=== PATIENT | male | born 1950 | race Caucasian/White ===

== ENCOUNTER 2019-03-28 11:45 | Outpatient (CLI) | payer MEDICARE, OTHER, SELFPAY ==
[2019-03-28 12:26] LABS: Eosinophils # 0.1 10^3/uL (0.0-0.8); Eosinophils % 0.1 %; Hematocrit 43.8 % (42.0-52.0); Hemoglobin 12.8 g/dL (11.7-16.6); Mean Corpuscular HGB Conc 29.2 g/dL (30.0-36.0); Mean Corpuscular Hemoglobin 30.9 pg (28.0-34.0); Mean Corpuscular Volume 105.8 fL (80-94); Monocytes % 1.5 %; Neutrophils # 2.7 10^3/uL (1.8-7.7); Neutrophils % 1.3 %; Nucleated Red Blood Cells % 0 %; Platelet Count 154 10^3/cmm (130-400); Red Blood Count 4.14 10^6/uL (4.1-5.3); Red Cell Distribution Width 15.9 % (12.1-15.1)
[2019-03-28 12:37] LABS: Alanine Aminotransferase 16 U/L (0-41); Albumin Level 5.2 g/dL (3.5-5.2); Alkaline Phosphatase 102 IU/L (40-130); Anion Gap 16.2 (5-19); Aspartate Amino Transferase 18 U/L (0-40); Blood Urea Nitrogen 16 mg/dL (8-23); Calcium 10.5 mg/Dl (8.8-10.2); Carbon Dioxide 28 mmol/L (22-29); Chloride 103 mmol/L (98-107); Globulin 2.6 g/dL (1.3-4.6); Glomerular Filtration Rate 66.6 mL/min (90-130); Glucose 118 mg/dL (74-106); Lactate Dehydrogenase 200 U/L (135-225); Potassium 4.2 mmol/L (3.5-5.1); Sodium 143 mmol/L (136-145); Total Bilirubin 0.6 mg/dL (0.15-1.2); Total Protein 7.8 g/dL (6.6-8.7)
[2019-03-28 13:37] LABS: Lymphocytes # 193.4 10^3/uL (0.8-4.8)
[2019-03-28 13:38] LABS: Slide Review Slide Review Perform
[2019-03-28 13:39] LABS: White Blood Count 199.4 10^3/uL (4.0-10.0)
--- NOTE | 2019-03-28 16:28 | ONC FU_ITS ---
Dr. Plaza follow up note Patient: Lb Garcia Unit #: [id number]: [id number] Dicatated By: Rosanne Plaza M.D.Date of Visit:Mar 28, 2019 Onc Med Follow-up/Prog Note History of Present Illness: Mr. Lb Garcia, 68-year-old male with a history of low-grade fever since February 2016 , now with night sweats and recently diagnosed with pneumonia , on 10/06/2016 his CBC showed white blood count 32.1 k , hemoglobin 14.4 hematocrit 45 platelets 170,000 differential shows lymphocytes 83.2% neutrophil 13.7% absolute lymphocytes count was 26,700 His repeat CBC on 10/28/2016 showed white blood count 33,700 hemoglobin 14.1 crit 41.9 platelets 193k, differential shows lymphocytes 78.5% neutrophil 18% absolute lymphocyte count 26,400 CBC from 03/17/2016 showed white blood count 12.5 hemoglobin 15.8 hematocrit 47.7 platelets 193,000 differential showed lymphocytes 58.2% neutrophil 37.6% absolute lymphocyte count was 7300 Patient said he has sleep apnea for which he uses CPAP machine at recently he would feel congested in his sinuses and also had urine tract infection off and on CT scan of chest abdomen pelvis done on 04/25/[address] scan of chest abdomen pelvis done on 11/25/2016 showed very mild progression in size and number of axillary, mediastinal, hilar and pelvic adenopathy Mild increase in size of spleen now 14.8 cm compared to 13.4 cm on 11/25/2016 .CT scan of chest abdomen pelvis done on 01/05/2019 showed stable bilateral axillary, mediastinal, right hilar lymphadenopathy no progression Splenomegaly, marginally increased from 04/25/2018 Progressive pelvic lymphadenopathy e.g. lymph node increase from 1.1-1.5 cm or 1.3 to 1.7 cm in left external iliac. And left internal iliac measures 1.8 compared to 1.4 cm earlier.Enlarged prostate Came for follow-up, denies any specific complaints, no night sweats, no fever or chills, but some weight loss because of poor oral intake since his in January 2019. No abdominal fullness no shortness of breath no palpitation occasionally headaches. . Medications: AmLODIPine Besylate 1 Tablet (of 10 mg) Oral daily, Aspirin 1 Tablet (of 81 mg) Tablet, enteric coated Oral daily, Finasteride 1 Tablet (of 5 mg) Oral daily, Lisinopril 1 Tablet (of 20 mg) Oral daily, Lovastatin ER 1 Tablet (of 40 mg) Tablet SR 24 HR Oral daily Allergies: No Known Allergies. Review of Systems: Review of Systems is not available for this patient. Vital Signs: Performed on Mar 28, 2019 14:36 Height - 69.50 in Weight - 218.0 lbs (LOW) BSA - 2.15 sq.m BMI - 31.73 (HIGH) Temperature - 98.1 F (LOW) Pulse - 85 /min Respiration - 24 /min BP - 119/68 mm(hg) O2 Sat - 96 % Pain - 0 Performance Status: 1 - No physically strenuous activity, but ambulatory and able to carry out light or sedentary work (e.g. office work, light house work). (ECOG) Physical Examination: ENMT - No oral exudates, ulcers, masses, thrush or mucositis. Oropharynx clear. Tongue normal, Respiratory - Lungs are clear to auscultation without rhonchi or wheezing, Cardiovascular - Regular rate and rhythm of heart, Abdomen - Non-tender, non-distended, Good bowel sounds. No guarding or rebound tenderness. No pulsatile masses, Extremities - no edema. Lab/Imaging: Test performed on Jan 05, 2019 08:22 LDH (Total) 200 U/L Sodium 142 mmol/L Potassium 4.4 mmol/L Chloride 103 mmol/L CO2 26 mmol/L Anion Gap 17.4 BUN 16 mg/dL Creatinine 1.0 mg/dL Cr Clearance (Est) 100.2500 mL/min eGFR 74.3 mL/min Glucose 128 mg/dl Calcium 9.7 mg/dL Protein, Total 7.9 g/dL Albumin 5.0 g/dL Globulin 2.9 gm/dL Bilirubin, Total 0.6 mg/dL ALT (SGPT) 18 U/L AST (SGOT) 17 U/L Alkaline Phosphatase 92 U/L WBC 185.8 10 3/uL RBC 3.96 10 6/uL HGB 12.8 g/dl HCT 39.4 % MCV 99.4 fl MCH 32.2 pg MCHC 32.4 g/dl RDW 15.7 % Platelet Count 146 10 3/cmm MPV 8.9 fl Neutrophils 3.2 10 3/uL Lymphocytes 179.0 10 3/uL Monocytes 3.4 10 3/uL Eosinophils 0.0 10 3/uL Basophils 0.1 10 3/uL Neutrophil % 1.7 % Lymphocyte % 96.5 % Monocyte % 1.8 % Eosinophil % 0.0 % Basophils % 0.0 % CBC Slide Review SLIDE REVIEW PERFORM SLIDE REVIEW AGREES WITH AUTOMATED RESULTS ST Test performed on Nov 10, 2018 11:32 Hepatitis A Ab, IgM Non- Reactive Hepatitis B Core Ab, Total Non-Reactive Hepatitis B Surf Antigen Non-Reactive Hepatitis B Surface Ab < 3.5 STATUS of IMMUINITY Inconsistent with Immunity 0.0 - 8.5 mIU/mL Consistent with Immunity >8.5 mIU/mL Hepatitis C Ab Non-Reactive Test performed on Nov 10, 2018 08:55 Manual Segs % 2 % Manual Bands % 1.0 % Manual Lymphs % 96.0 % Blasts % 1.0 % Platelet Estimate NORMAL Manual Neutrophils Abs 5.1 10 3/cmm Manual Lymphocytes Abs 163.1 10 3/cmm Impression: 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 Discussed with patient regarding his CT scan finding and lab workup. His white blood count is elevated due to lymphocytosis at 48.7 with a normal hemoglobin and hematocrit as well as platelets No evidence of peripheral lymphadenopathy or central lymphadenopathy except mild lymphadenopathy in pelvis maximum size 1.3 cm. [address] compared with [address] scan of pelvis on 06/07/2009 it was 0.8 cm. Incidental finding, large thyroid goiter causing impingement on trachea and esophagus at the cervicothoracic junction the vast majority of monotypic B cells express CD38 next CLL panel, FISH showed positive for deletion of TP53 (unfavorable prognosis and chemotherapy resistance) And IGHV status shows non-mutation e.g. poor prognostic features Quantitative immunoglobulins checked on 11/04/2016 showed IgG 1100 normal being 700-1600 IgM 53 normal being 40-230 IgA 150 normal being 70-400 Beta-2 microglobulin 0.230 normal being 0.109 -0.253 CT scan of chest abdomen pelvis done on 11/25/2016 showed bilateral lower lobe parenchymal scarring with bilateral lower lobe bronchiectasis segment similar to 06/07/2009. Thyroid goiter with tracheal and esophageal impingements at cervicothoracic junction. Nonspecific right hilar lymph nodes no enlarged or pathological lymphadenopathy seen. Mild iliac region lymph nodes enlargements since 06/07/2009 Size about 1.3 cm. mild splenomegaly Repeat sonogram of abdomen On 12/20/2017 shows mild splenomegaly now 12.9 cm compared to 13.2 cm on 03/02/2017 On 02/09/2018 patient was evaluated by Dr. 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 And his recommendations were serial CT scan of chest abdomen pelvis once a year or sooner if needed. And continue to monitor CBC unless white blood count more than 200,000 as it may be associated with hyperviscosity and treatment options if decided to treat his recommendation was short course of bendamustine/Rituxan up to 4 cycles to achieve an initial response followed by ibrutinib maintenance. CT scan of chest abdomen pelvis done on 04/25/2018 showed very mild progression in the size and number of axillary, just tunnel, hilar and pelvic lymphadenopathy since 11/25/2016 Mild increase in size of spleen since 11/25/2016, now 14.8 cm compared to 13.4 before. Severe prostrate gland enlargement Plan: Discussed with patient regarding his labs white blood count 199.4, hemoglobin 12.8 crit 43.8 platelets 154,000 CMP within normal limits LDH 200 Clinically, patient is doing well, no B signs symptoms suggestive of disease progression but there is a progressive lymphocytosis/leukocytosis with a normal hemoglobin and platelet count and stable peripheral lymphadenopathy. Patient is having occasionally headaches and has lost some weight since his in January 2019 and at this point we'll continue to monitor and have him back in one month with CBC if white blood count/lymphocytes continued to go up and or there is a worsening of headaches may consider systemic therapy for CLL. Signed By: Rosanne Plaza M.D. <<Signature on File>>
== END 2019-03-28 11:46 | disposition home or self-care (01) ==
LOC: ONCMED 11:45
PROVIDERS: Family Provider Nurse Practitioner; PCP Nurse Practitioner; Visit Provider Internal Medicine Hematology & Oncology
DX: C91.10 Chronic lymphocytic leukemia of B-cell type not having achieved remission (principal); G47.33 Obstructive sleep apnea (adult) (pediatric); R16.1 Splenomegaly, not elsewhere classified; N40.0 Benign prostatic hyperplasia without lower urinary tract symptoms; R59.0 Localized enlarged lymph nodes; E04.9 Nontoxic goiter, unspecified; Z79.82 Long term (current) use of aspirin; Z92.21 Personal history of antineoplastic chemotherapy; Z87.440 Personal history of urinary (tract) infections
CPT/HCPCS: 80053; 83615; 85025; G0463

== ENCOUNTER 2019-04-25 10:45 | Outpatient (CLI) | payer MEDICARE, OTHER, SELFPAY ==
[2019-04-25 11:19] LABS: Basophils # 0.1 10^3/uL (0.0-0.1); Eosinophils # 0.1 10^3/uL (0.0-0.8); Hematocrit 40.1 % (42.0-52.0); Hemoglobin 11.6 g/dL (11.7-16.6); Mean Corpuscular HGB Conc 28.9 g/dL (30.0-36.0); Mean Corpuscular Volume 107.2 fL (80-94); Mean Platelet Volume 10.4 fL (7.4-10.4); Monocytes # 3.7 10^3/uL (0.2-0.9); Monocytes % 1.9 %; Neutrophils # 3.7 10^3/uL (1.8-7.7); Nucleated Red Blood Cells % 0 %; Platelet Count 160 10^3/cmm (130-400); Red Blood Count 3.74 10^6/uL (4.1-5.3); Red Cell Distribution Width 15.5 % (12.1-15.1)
[2019-04-25 11:39] LABS: Alanine Aminotransferase 12 U/L (0-41); Albumin Level 4.2 g/dL (3.5-5.2); Alkaline Phosphatase 96 IU/L (40-130); Anion Gap 16.1 (5-19); Aspartate Amino Transferase 13 U/L (0-40); Blood Urea Nitrogen 14 mg/dL (8-23); Carbon Dioxide 27 mmol/L (22-29); Chloride 103 mmol/L (98-107); Globulin 3.4 g/dL (1.3-4.6); Glomerular Filtration Rate 60.2 mL/min (90-130); Glucose 136 mg/dL (65-115); Potassium 4.1 mmol/L (3.5-5.1); Sodium 142 mmol/L (136-145); Total Bilirubin 0.6 mg/dL (0.15-1.2); Total Protein 7.6 g/dL (6.6-8.7)
[2019-04-25 11:51] LABS: Lymphocytes # 186.5 10^3/uL (0.8-4.8); Slide Review Slide Review Perform; White Blood Count 194.3 10^3/uL (4.0-10.0)
--- NOTE | 2019-04-25 13:53 | ONC FU_ITS ---
Dr. Plaza follow up note Patient: Lb Garcia Unit #: [id number]: [id number] Dicatated By: Rosanne Plaza M.D.Date of Visit:Apr 25, 2019 Onc Med Follow-up/Prog Note History of Present Illness: Mr. Lb Garcia, 68-year-old male with a history of low-grade fever since February 2016 , now with night sweats and recently diagnosed with pneumonia , on 10/06/2016 his CBC showed white blood count 32.1 k , hemoglobin 14.4 hematocrit 45 platelets 170,000 differential shows lymphocytes 83.2% neutrophil 13.7% absolute lymphocytes count was 26,700 His repeat CBC on 10/28/2016 showed white blood count 33,700 hemoglobin 14.1 crit 41.9 platelets 193k, differential shows lymphocytes 78.5% neutrophil 18% absolute lymphocyte count 26,400 CBC from 03/17/2016 showed white blood count 12.5 hemoglobin 15.8 hematocrit 47.7 platelets 193,000 differential showed lymphocytes 58.2% neutrophil 37.6% absolute lymphocyte count was 7300 Patient said he has sleep apnea for which he uses CPAP machine at recently he would feel congested in his sinuses and also had urine tract infection off and on CT scan of chest abdomen pelvis done on 04/25/[address] scan of chest abdomen pelvis done on 11/25/2016 showed very mild progression in size and number of axillary, mediastinal, hilar and pelvic adenopathy Mild increase in size of spleen now 14.8 cm compared to 13.4 cm on 11/25/2016 .CT scan of chest abdomen pelvis done on 01/05/2019 showed stable bilateral axillary, mediastinal, right hilar lymphadenopathy no progression Splenomegaly, marginally increased from 04/25/2018 Progressive pelvic lymphadenopathy e.g. lymph node increase from 1.1-1.5 cm or 1.3 to 1.7 cm in left external iliac. And left internal iliac measures 1.8 compared to 1.4 cm earlier.Enlarged prostate Came for follow-up, denies any specific complaints except episode of flulike symptoms since last visit now resolved, no night sweats, no fever or chills, no weight loss, no progressive peripheral lymphadenopathy, no abdominal fullness, no melena or hematochezia, no nausea or vomiting, no dysphagia. . Medications: AmLODIPine Besylate 1 Tablet (of 10 mg) Oral daily, Aspirin 1 Tablet (of 81 mg) Tablet, enteric coated Oral daily, Finasteride 1 Tablet (of 5 mg) Oral daily, Lisinopril 1 Tablet (of 20 mg) Oral daily, Lovastatin ER 1 Tablet (of 40 mg) Tablet SR 24 HR Oral daily Allergies: No Known Allergies. Review of Systems: Constitutional - Appetite is good and weight is stable. No fever, chills, hot flashes, or night sweats. Energy level is fair, ENMT - No sinus congestion/drainage. No mouth sores. No sore throat or difficulty swallowing, Hematologic/Lymphatic - No abnormal bruising or bleeding, Respiratory - No shortness of breath. No cough. No pleuritic pain or hemoptysis, Cardiovascular - No angina pain. No palpitations, Gastrointestinal - No nausea or vomiting. No heartburn or acid reflux. No diarrhea or constipation. No blood in the stool or black stools, Genitourinary (M) - No dysuria. Positive for hematuria. No urinary frequency. No urgency or incontinence, Musculoskeletal - No joint or bone pain, Neurologic - No headache or dizziness. No numbness/paresthesias or other focal neurologic symptoms, Psychiatric - No anxiety or depression. No insomnia. Vital Signs: Performed on Apr 25, 2019 13:03 Height - 69.50 in Weight - 221.4 lbs (HIGH) BSA - 2.17 sq.m BMI - 32.23 (HIGH) Temperature - 98.5 F Pulse - 69 /min Respiration - 14 /min BP - 131/81 mm(hg) O2 Sat - 96 % Pain - 0 Performance Status: 0 - Fully active, able to carry on all predisease activities without restrictions. (ECOG) Physical Examination: ENMT - No oral exudates, ulcers, masses, thrush or mucositis. Oropharynx clear. Tongue normal.small shotty cervical lymphadenopathy and bilateral axillary lymphadenopathy, Respiratory - Lungs are clear to auscultation without rhonchi or wheezing, Cardiovascular - Regular rate and rhythm of heart, Abdomen - Non-tender, non-distended, Good bowel sounds. No guarding or rebound tenderness. No pulsatile masses, Extremities - no edema. Lab/Imaging: Test performed on Mar 28, 2019 12:00 LDH (Total) 200 U/L Sodium 143 mmol/L Potassium 4.2 mmol/L Chloride 103 mmol/L CO2 28 mmol/L Anion Gap 16.2 BUN 16 mg/dL Creatinine 1.1 mg/dL Cr Clearance (Est) 89.90 mL/min eGFR 66.6 mL/min Glucose 118 mg/dL Calcium 10.5 mg/Dl Protein, Total 7.8 g/dL Albumin 5.2 g/dL Globulin 2.6 g/dL Bilirubin, Total 0.6 mg/dL ALT (SGPT) 16 U/L AST (SGOT) 18 U/L WBC 199.4 10 3/uL RBC 4.14 10 6/uL HGB 12.8 g/dL HCT 43.8 % MCV 105.8 fL MCH 30.9 pg MCHC 29.2 g/dL RDW 15.9 % Platelet Count 154 10 3/cmm MPV 10.0 fL Neutrophils 2.7 10 3/uL Lymphocytes 193.4 10 3/uL Monocytes 3.0 10 3/uL Eosinophils 0.1 10 3/uL Basophils 0.0 10 3/uL Neutrophil % 1.3 % Lymphocyte % 97.0 % Monocyte % 1.5 % Eosinophil % 0.1 % Basophils % 0.0 % CBC Slide Review Slide Review Perform SLIDE REVIEW AGREES WITH AUTOMATED RESULTS ST Test performed on Jan 05, 2019 08:22 Alkaline Phosphatase 92 U/L Test performed on Nov 10, 2018 11:32 Hepatitis A Ab, IgM Non- Reactive Hepatitis B Core Ab, Total Non-Reactive Hepatitis B Surf Antigen Non-Reactive Hepatitis B Surface Ab < 3.5 STATUS of IMMUINITY Inconsistent with Immunity 0.0 - 8.5 mIU/mL Consistent with Immunity >8.5 mIU/mL Hepatitis C Ab Non-Reactive Test performed on Nov 10, 2018 08:55 Manual Segs % 2 % Manual Bands % 1.0 % Manual Lymphs % 96.0 % Blasts % 1.0 % Platelet Estimate NORMAL Manual Neutrophils Abs 5.1 10 3/cmm Manual Lymphocytes Abs 163.1 10 3/cmm Impression: 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 Discussed with patient regarding his CT scan finding and lab workup. His white blood count is elevated due to lymphocytosis at 48.7 with a normal hemoglobin and hematocrit as well as platelets No evidence of peripheral lymphadenopathy or central lymphadenopathy except mild lymphadenopathy in pelvis maximum size 1.3 cm. When compared with CT scan of pelvis on 06/07/2009 it was 0.8 cm. Incidental finding, large thyroid goiter causing impingement on trachea and esophagus at the cervicothoracic junction the vast majority of monotypic B cells express CD38 next CLL panel, FISH showed positive for deletion of TP53 (unfavorable prognosis and chemotherapy resistance) And IGHV status shows non-mutation e.g. poor prognostic features Quantitative immunoglobulins checked on 11/04/2016 showed IgG 1100 normal being 700-1600 IgM 53 normal being 40-230 IgA 150 normal being 70-400 Beta-2 microglobulin 0.230 normal being 0.109 -0.253 CT scan of chest abdomen pelvis done on 11/25/2016 showed bilateral lower lobe parenchymal scarring with bilateral lower lobe bronchiectasis segment similar to 06/07/2009. Thyroid goiter with tracheal and esophageal impingements at cervicothoracic junction. Nonspecific right hilar lymph nodes no enlarged or pathological lymphadenopathy seen. Mild iliac region lymph nodes enlargements since 06/07/2009 Size about 1.3 cm. mild splenomegaly Repeat sonogram of abdomen On 12/20/2017 shows mild splenomegaly now 12.9 cm compared to 13.2 cm on 03/02/2017 On 02/09/2018 patient was evaluated by Dr. Alvarenga yarn cleaner at [facility] and his labs done there showed white blood count 198.7 hemoglobin 13.4 hematocrit 34.4 platelets 188,000 IgA 100, IgM 43, IgG 889, SPEP no monoclonal peak, serum light chains showed kappa 2.44, lambda 2.9, kappa/lambda ratio 0.84 which was normal. And his recommendations were serial CT scan of chest abdomen pelvis once a year or sooner if needed. And continue to monitor CBC unless white blood count more than 200,000 as it may be associated with hyperviscosity and treatment options if decided to treat his recommendation was short course of bendamustine/Rituxan up to 4 cycles to achieve an initial response followed by ibrutinib maintenance. CT scan of chest abdomen pelvis done on 04/25/2018 showed very mild progression in the size and number of axillary, just tunnel, hilar and pelvic lymphadenopathy since 11/25/2016 Mild increase in size of spleen since 11/25/2016, now 14.8 cm compared to 13.4 before. Severe prostrate gland enlargement Plan: Discussed with patient regarding his labs white blood count 194,300, hemoglobin 11.6 compared to 12.8 g on 03/28/2019, hematocrit 40.1 platelets 160,000, CMP within normal limits Clinically, patient is doing reasonably well, no B symptoms, no abdominal fullness or progressive peripheral lymphadenopathy but follow-up CBC shows progressive anemia, we will continue to monitor and repeat CBC, CMP and follow-up CT scan chest abdomen pelvis to rule out central lymphadenopathy or organomegaly in a month. If follow-up lab shows progressive anemia or scan shows evidence of disease progression then we will consider systemic therapy with BR regimen ???4 followed by maintenance therapy with ibrutinib. Signed By: Rosanne Plaza M.D. <<Signature on File>>
== END 2019-04-25 10:46 | disposition home or self-care (01) ==
PROVIDERS: Family Provider Nurse Practitioner; PCP Nurse Practitioner; Visit Provider Internal Medicine Hematology & Oncology
DX: C91.90 Lymphoid leukemia, unspecified not having achieved remission (principal); G47.33 Obstructive sleep apnea (adult) (pediatric); N40.0 Benign prostatic hyperplasia without lower urinary tract symptoms; E04.9 Nontoxic goiter, unspecified; Z79.82 Long term (current) use of aspirin; Z79.899 Other long term (current) drug therapy; Z87.440 Personal history of urinary (tract) infections
CPT/HCPCS: 36415; 80053; 85025; 99214

== ENCOUNTER → 2019-05-09 09:14 | Outpatient (BNVA) | payer MEDICARE, OTHER, SELFPAY | PROVIDERS: Family Provider Nurse Practitioner; PCP Nurse Practitioner; Visit Provider Nurse Practitioner | DX: E11.9 Type 2 diabetes mellitus without complications (principal); I10 Essential (primary) hypertension; R39.11 Hesitancy of micturition; E78.5 Hyperlipidemia, unspecified | CPT/HCPCS: 81001; 81003 ==

== ENCOUNTER 2019-05-19 09:09 | Outpatient (CLI) | payer MEDICARE, OTHER, SELFPAY ==
--- NOTE | 2019-05-19 | CT_ITS ---
WS: [id number] CT CHEST, ABDOMEN AND PELVIS WITH CONTRAST HISTORY: LEUKEMIA RESTAGING TECHNIQUE: Contiguous 5 mm axial imaging performed through the chest, abdomen and pelvis with IV cont rast, oral contrast has been provided. Coronal and sagittal reformats chest. Coronal and sagittal ref ormats through the abdomen and pelvis. All CT scans at [facility] use at least one of the se dose optimization techniques: automated exposure control; mA and/or kV adjustment per patient size (includes targeted exams where dose is matched to clinical indication); or iterative reconstruction. CONTRAST: Visipaque 320; 95 mL IV. DLP: 2543.08 mGycm COMPARISON: 01/05/2019 and 04/25/[address]: There are numerous indeterminate mediastinal and hilar lymph nodes and axillary lymph nodes . Axillary lymph nodes maintain a normal fatty hilum with no increase in size or number. Largest min r lymph node is 14 mm on the RIGHT. Aortopulmonary and paratracheal lymph nodes measure up to 12 mm. Very similar in appearance to the prior study with no progression. There may be very slight improveme nt in the hilar mediastinal lymph nodes. Lungs are clear. No pericardial or pleural effusion. Coronar y artery atherosclerosis. Thyroid gland is enlarged and substernal. Similar to the prior exams. Abdomen CT: Normal size liver. Normal gallbladder with cholelithiasis. Spleen is enlarged measuring 1 6.5 cm in length. Similar to the prior study. Pancreas and adrenal glands are negative. Normal RIGHT kidney. Mild dilatation of the LEFT renal pelvis and proximal ureter. 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 No interval guide changer multiple prior studies. Normal size aorta. No mesenteric or enla rging lymph nodes. No GI tract obstruction. Appendix is normal. Pelvic CT: No free fluid in the pelvis. Again noted are iliac chain lymph nodes. Proximal LEFT common iliac lymph node measures 14 mm and is unchanged. Several 14 mm lymph nodes are noted involving the proximal iliac chains. No progression. Obturator lymph nodes are also enlarged with the largest on th e LEFT measuring 19 mm which has slightly increased in size. No consistent increase in size. Stable i nguinal lymph nodes. Markedly enlarged prostate gland indents the urinary bladder. No change. CT/CT chest abd pel w con* IMPRESSION: 1. Axillary, mediastinal and hilar lymph nodes are indeterminate with no inter leeanne change. Largest lymph node at the RIGHT hilum is 14 mm. 2. Pelvic lymphadenopathy without significant progression in size or number si nce 01/05/2019. There are numerous enlarged lymph nodes. Some measures slightly smaller in size and others slightly larger in size which is probably due to te chnical variation. Largest lymph node is 19 mm in the LEFT obturator region. 3. Markedly enlarged prostate gland. 4. Splenomegaly stable at 16.5 cm in length. 5. Cholelithiasis. 6. 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
[2019-05-19] MEDS: iodixanol 320 mg/mL 100mL Btl IV (11:13)
[2019-05-19] MEDS: iohexol 300 mg/mL 50 mL Btl PO (11:14)
== END 2019-05-19 09:10 | disposition home or self-care (01) ==
LOC: ONCMED 09:12
PROVIDERS: Family Provider Nurse Practitioner; PCP Nurse Practitioner; Visit Provider Internal Medicine Hematology & Oncology
DX: C91.90 Lymphoid leukemia, unspecified not having achieved remission (principal); N40.0 Benign prostatic hyperplasia without lower urinary tract symptoms; R16.1 Splenomegaly, not elsewhere classified; K80.20 Calculus of gallbladder without cholecystitis without obstruction; N28.89 Other specified disorders of kidney and ureter
CPT/HCPCS: 71260; 74177; Q9967

== ENCOUNTER 2019-05-26 09:35 | Outpatient (RCR) | payer MEDICARE, OTHER, SELFPAY ==
[2019-05-24 11:06] LABS: Basophils # 0.2 10^3/uL (0.0-0.1); Basophils % 0.1 %; Eosinophils # 0.1 10^3/uL (0.0-0.8); Eosinophils % 0.1 %; Hematocrit 40.5 % (42.0-52.0); Hemoglobin 11.8 g/dL (11.7-16.6); Lymphocytes % 96.7 %; Mean Corpuscular HGB Conc 29.1 g/dL (30.0-36.0); Mean Corpuscular Hemoglobin 30.8 pg (28.0-34.0); Mean Corpuscular Volume 105.7 fL (80-94); Mean Platelet Volume 10.6 fL (7.4-10.4); Monocytes # 4.7 10^3/uL (0.2-0.9); Monocytes % 2.1 %; Neutrophils # 2.2 10^3/uL (1.8-7.7); Neutrophils % 0.9 %; Nucleated Red Blood Cells % 0 %; Platelet Count 145 10^3/cmm (130-400); Red Blood Count 3.83 10^6/uL (4.1-5.3); Red Cell Distribution Width 15.7 % (12.1-15.1)
[2019-05-24 11:22] LABS: Alanine Aminotransferase 16 U/L (0-41); Albumin Level 4.4 g/dL (3.5-5.2); Alkaline Phosphatase 87 IU/L (40-130); Anion Gap 17.1 (5-19); Aspartate Amino Transferase 35 U/L (0-40); Blood Urea Nitrogen 14 mg/dL (8-23); Calcium 9.3 mg/dL (8.5-10.5); Carbon Dioxide 26 mmol/L (22-29); Chloride 101 mmol/L (98-107); Chol HDL Ratio 3.46 mg/dL (1.0-5.00); Cholesterol 128 mg/dL (0-200); Globulin 2.8 g/dL (1.3-4.6); Glomerular Filtration Rate 74.3 mL/min (90-130); Glucose 117 mg/dL (65-115); HDL Cholesterol 37 mg/dL (60-100); LDL Cholesterol Calculated 74 mg/dL (50-129); Osmolality Calculated 279 mOsm/kg (285-295); Sodium 136 mmol/L (136-145); Total Bilirubin 0.5 mg/dL (0.15-1.2); Total Protein 7.2 g/dL (6.6-8.7); Triglycerides 86 mg/dL (0-150); VLDL Cholestrol Calculation 17 mg/dL (0-30)
[2019-05-24 11:43] LABS: Lymphocytes # 211.4 10^3/uL (0.8-4.8); Slide Review Slide Review Perform; White Blood Count 218.7 10^3/uL (4.0-10.0)
[2019-05-24 11:44] LABS: Potassium 8.1 mmol/L (3.5-5.1)
[2019-05-24 13:53] LABS: Estmated Average Glucose 131; Hemoglobin A1C 6.2 % (4.0-6.0)
--- NOTE | 2019-05-24 14:11 | ONC FU_ITS ---
Dr. Plaza follow up note Patient: Lb Garcia Unit #: [id number]: 1950 Dicatated By: Rosanne Plaza M.D.Date of Visit:May 24, 2019 Onc Med Follow-up/Prog Note History of Present Illness: Mr. Lb Garcia, 68-year-old male with a history of low-grade fever since February 2016 , now with night sweats and recently diagnosed with pneumonia , on 10/06/2016 his CBC showed white blood count 32.1 k , hemoglobin 14.4 hematocrit 45 platelets 170,000 differential shows lymphocytes 83.2% neutrophil 13.7% absolute lymphocytes count was 26,700 His repeat CBC on 10/28/2016 showed white blood count 33,700 hemoglobin 14.1 crit 41.9 platelets 193k, differential shows lymphocytes 78.5% neutrophil 18% absolute lymphocyte count 26,400 CBC from 03/17/2016 showed white blood count 12.5 hemoglobin 15.8 hematocrit 47.7 platelets 193,000 differential showed lymphocytes 58.2% neutrophil 37.6% absolute lymphocyte count was 7300 Patient said he has sleep apnea for which he uses CPAP machine at recently he would feel congested in his sinuses and also had urine tract infection off and on CT scan of chest abdomen pelvis done on 04/25/[address] scan of chest abdomen pelvis done on 11/25/2016 showed very mild progression in size and number of axillary, mediastinal, hilar and pelvic adenopathy Mild increase in size of spleen now 14.8 cm compared to 13.4 cm on 11/25/2016 .CT scan of chest abdomen pelvis done on 01/05/2019 showed stable bilateral axillary, mediastinal, right hilar lymphadenopathy no progression Splenomegaly, marginally increased from 04/25/2018 Progressive pelvic lymphadenopathy e.g. lymph node increase from 1.1-1.5 cm or 1.3 to 1.7 cm in left external iliac. And left internal iliac measures 1.8 compared to 1.4 cm earlier.Enlarged prostate f/u CT scan of chest abdomen pelvis done on 05/19/2019 showed axillary, mediastinal and hilar lymph nodes are indeterminate within no interval change the largest lymph node at right hilum is 14 mm Pelvic lymphadenopathy without significant progression in size or number since 01/05/2019. There are numerous enlarged lymph nodes. Some measures slightly smaller in size other slightly larger in size which is a probably due to technical variation Largest lymph node is 19 mm in the left obturator region. Markedly enlarged prostate gland next Splenomegaly stable at 16.5 cm in length. Cholelithiasis, Came for follow-up complaining of generalized weakness and fatigue, no night sweats, no recurrent fever, no weight loss, appetite is reasonable. No progressive peripheral lymphadenopathy. No abdominal fullness. . Medications: AmLODIPine Besylate 1 Tablet (of 10 mg) Oral daily, Aspirin 1 Tablet (of 81 mg) Tablet, enteric coated Oral daily, Finasteride 1 Tablet (of 5 mg) Oral daily, Lisinopril 1 Tablet (of 20 mg) Oral daily, Lovastatin ER 1 Tablet (of 40 mg) Tablet SR 24 HR Oral daily Allergies: No Known Allergies. Review of Systems: Constitutional - Appetite is good and weight is stable. No fever, chills, hot flashes, or night sweats. Energy level is fair, ENMT - No sinus congestion/drainage. No mouth sores. No sore throat or difficulty swallowing, Hematologic/Lymphatic - No abnormal bruising or bleeding, Respiratory - No shortness of breath. No cough. No pleuritic pain or hemoptysis, Cardiovascular - No angina pain. No palpitations, Gastrointestinal - No nausea or vomiting. No heartburn or acid reflux. No diarrhea or constipation. No blood in the stool or black stools, Genitourinary (M) - No dysuria. Positive for hematuria. No urinary frequency. No urgency or incontinence, Musculoskeletal - No joint or bone pain, Neurologic - No headache or dizziness. No numbness/paresthesias or other focal neurologic symptoms, Psychiatric - No anxiety or depression. No insomnia. Vital Signs: Performed on May 24, 2019 12:53 Height - 69.50 in Weight - 220.8 lbs (LOW) BSA - 2.17 sq.m BMI - 32.14 (HIGH) Temperature - 97.9 F (LOW) Pulse - 68 /min Respiration - 22 /min BP - 127/69 mm(hg) O2 Sat - 95 % (LOW) Pain - 0 Performance Status: 0 - Fully active, able to carry on all predisease activities without restrictions. (ECOG) Physical Examination: ENMT - No oral exudates, ulcers, masses, thrush or mucositis. Oropharynx clear. Tongue normal, Hematologic/Lymphatic - No petechiae or purpura. shotty palpable lymph nodes in, axillary or inguinal area, Respiratory - Lungs are clear to auscultation without rhonchi or wheezing, Cardiovascular - Regular rate and rhythm of heart, Abdomen - Non-tender, non-distended,Good bowel sounds. No guarding or rebound tenderness. No pulsatile masses, Extremities - no edema. Lab/Imaging: Test performed on Apr 25, 2019 10:58 Sodium 142 mmol/L Potassium 4.1 mmol/L Chloride 103 mmol/L CO2 27 mmol/L Anion Gap 16.1 BUN 14 mg/dL Creatinine 1.2 mg/dL Cr Clearance (Est) 83.69 mL/min eGFR 60.2 mL/min Glucose 136 mg/dL Calcium 10.0 mg/dL Protein, Total 7.6 g/dL Albumin 4.2 g/dL Globulin 3.4 g/dL Bilirubin, Total 0.6 mg/dL ALT (SGPT) 12 U/L AST (SGOT) 13 U/L Alkaline Phosphatase 96 IU/L WBC 194.3 10 3/uL RBC 3.74 10 6/uL HGB 11.6 g/dL HCT 40.1 % MCV 107.2 fL MCH 31.0 pg MCHC 28.9 g/dL RDW 15.5 % Platelet Count 160 10 3/cmm MPV 10.4 fL Neutrophils 3.7 10 3/uL Lymphocytes 186.5 10 3/uL Monocytes 3.7 10 3/uL Eosinophils 0.1 10 3/uL Basophils 0.1 10 3/uL Neutrophil % 2.0 % Lymphocyte % 96.0 % Monocyte % 1.9 % Eosinophil % 0.0 % Basophils % 0.0 % CBC Slide Review Slide Review Perform SLIDE REVIEW AGREES WITH AUTOMATED RESULTS ST Test performed on Mar 28, 2019 12:00 LDH (Total) 200 U/L Impression: 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 Discussed with patient regarding his CT scan finding and lab workup. His white blood count is elevated due to lymphocytosis at 48.7 with a normal hemoglobin and hematocrit as well as platelets No evidence of peripheral lymphadenopathy or central lymphadenopathy except mild lymphadenopathy in pelvis maximum size 1.3 cm. [address] compared with CT scan of pelvis on 06/07/2009 it was 0.8 cm. Incidental finding, large thyroid goiter causing impingement on trachea and esophagus at the cervicothoracic junction the vast majority of monotypic B cells express CD38 next CLL panel, FISH showed positive for deletion of TP53 (unfavorable prognosis and chemotherapy resistance) And IGHV status shows non-mutation e.g. poor prognostic features Quantitative immunoglobulins checked on 11/04/2016 showed IgG 1100 normal being 700-1600 IgM 53 normal being 40-230 IgA 150 normal being 70-400 Beta-2 microglobulin 0.230 normal being 0.109 -0.253 CT scan of chest abdomen pelvis done on 11/25/2016 showed bilateral lower lobe parenchymal scarring with bilateral lower lobe bronchiectasis segment similar to 06/07/2009. Thyroid goiter with tracheal and esophageal impingements at cervicothoracic junction. Nonspecific right hilar lymph nodes no enlarged or pathological lymphadenopathy seen. Mild iliac region lymph nodes enlargements since 06/07/2009 Size about 1.3 cm. mild splenomegaly Repeat sonogram of abdomen On 12/20/2017 shows mild splenomegaly now 12.9 cm compared to 13.2 cm on 03/02/2017 On 02/09/2018 patient was evaluated by Dr. Alvarenga toy trains and accessories salesperson at [facility] and his labs done there showed white blood count 198.7 hemoglobin 13.4 hematocrit 34.4 platelets 188,000 IgA 100, IgM 43, IgG 889, SPEP no monoclonal peak, serum light chains showed kappa 2.44, lambda 2.9, kappa/lambda ratio 0.84 which was normal. And his recommendations were serial CT scan of chest abdomen pelvis once a year or sooner if needed. And continue to monitor CBC unless white blood count more than 200,000 as it may be associated with hyperviscosity and treatment options if decided to treat his recommendation was short course of bendamustine/Rituxan up to 4 cycles to achieve an initial response followed by ibrutinib maintenance. CT scan of chest abdomen pelvis done on 04/25/2018 showed very mild progression in the size and number of axillary, just tunnel, hilar and pelvic lymphadenopathy since 11/25/2016 Mild increase in size of spleen since 11/25/2016, now 14.8 cm compared to 13.4 before. Severe prostrate gland enlargement Plan: Discussed with patient regarding his labs white blood count 218.7 thousand, hemoglobin 11.8 hematocrit 40.5 platelets 145,000 CMP within normal limits except potassium 8.1, repeat potassium 6 Clinically, patient is doing reasonably well but now with progressive generalized weakness and fatigue and his lab workup shows progressive lymphocytosis now over 200,000 with progressive drop in his hemoglobin but still in lower side of normal range. Follow-up CT scan of chest abdomen pelvis shows no significant change but persistent splenomegaly. Because of progressive generalized weakness and fatigue and increasing lymphocytosis and slowly but gradual drop in hemoglobin and platelets and a persistent splenomegaly, and now with hyperkalemia, patient is not on potassium supplement there is a no evidence of hemolysis, no jaundice other possibility could be due to progressive lymphocytosis. Or lab error or hemolyzed specimen, as repeat potassium level was 6 instead of 8.1 seen earlier. and we will repeat potassium level again in the morning to ensure its improving treatment options including continued with observation or single agent ibrutinib was discussed. Patient opted for ibrutinib. All the side effects possible benefits including but not limited to skin rash, bone marrow suppression eg neutropenia thrombocytopenia/anemia, diarrhea, cardiac like atrial fibrillation or myocarditis or tumor lysis, fever, abdominal pain, were discussed further teaching will be done by chemotherapy nurse. At this point we will start him on allopurinol 100 mg by mouth 3 times a day and patient was advised to maintain good hydration and also consider single agent ibrutinib 420 mg by mouth daily and monitor his blood counts and electrolytes, phosphorous, uric acid. We will obtain approval from his insurance prior to the treatment. Patient will return to clinic 1 week after ibrutinib is started with CBC CMP. Signed By: Rosanne Plaza M.D. <<Signature on File>>
[2019-05-26 14:31] LABS: Alanine Aminotransferase 13 U/L (0-41); Albumin Level 4.8 g/dL (3.5-5.2); Alkaline Phosphatase 84 IU/L (40-130); Anion Gap 13.5 (5-19); Aspartate Amino Transferase 20 U/L (0-40); Blood Urea Nitrogen 14 mg/dL (8-23); Calcium 9.9 mg/dL (8.5-10.5); Carbon Dioxide 32 mmol/L (22-29); Chloride 101 mmol/L (98-107); Globulin 2.5 g/dL (1.3-4.6); Glomerular Filtration Rate 74.3 mL/min (90-130); Glucose 105 mg/dL (65-115); Osmolality Calculated 291 mOsm/kg (285-295); Potassium 4.5 mmol/L (3.5-5.1); Sodium 142 mmol/L (136-145); Total Bilirubin 0.4 mg/dL (0.15-1.2); Total Protein 7.3 g/dL (6.6-8.7)
== END 2019-06-06 23:59 | disposition home or self-care (01) ==
LOC: ONCMED 09:35
PROVIDERS: Family Provider Nurse Practitioner; PCP Nurse Practitioner; Visit Provider Internal Medicine Hematology & Oncology
DX: C91.90 Lymphoid leukemia, unspecified not having achieved remission (principal); E11.22 Type 2 diabetes mellitus with diabetic chronic kidney disease; N18.9 Chronic kidney disease, unspecified; E78.5 Hyperlipidemia, unspecified; G47.33 Obstructive sleep apnea (adult) (pediatric); E04.9 Nontoxic goiter, unspecified; M81.0 Age-related osteoporosis without current pathological fracture; K80.20 Calculus of gallbladder without cholecystitis without obstruction; N40.0 Benign prostatic hyperplasia without lower urinary tract symptoms; Z79.82 Long term (current) use of aspirin; Z79.899 Other long term (current) drug therapy; Z87.01 Personal history of pneumonia (recurrent)
CPT/HCPCS: 36415; 80053; 80061; 83036; 85025; 99214

== ENCOUNTER 2019-07-06 06:46 | Outpatient (RCR) | payer MEDICARE, OTHER, SELFPAY ==
[2019-06-09 19:07] LABS: Alanine Aminotransferase 12 U/L (0-41); Albumin Level 4.5 g/dL (3.5-5.2); Alkaline Phosphatase 92 IU/L (40-130); Anion Gap 17.1 (5-19); Aspartate Amino Transferase 18 U/L (0-40); Blood Urea Nitrogen 21 mg/dL (8-23); Calcium 9.2 mg/dL (8.5-10.5); Carbon Dioxide 26 mmol/L (22-29); Chloride 101 mmol/L (98-107); Globulin 2.5 g/dL (1.3-4.6); Glomerular Filtration Rate 66.6 mL/min (90-130); Glucose 93 mg/dL (65-115); Osmolality Calculated 286 mOsm/kg (285-295); Phosphorus 3.9 mg/dL (2.5-4.5); Potassium 4.1 mmol/L (3.5-5.1); Sodium 140 mmol/L (136-145); Total Bilirubin 0.5 mg/dL (0.15-1.2); Uric Acid 4.3 mg/dL (3.4-7.0)
[2019-06-09 19:09] LABS: Eosinophils # 0.1 10^3/uL (0.0-0.8); Eosinophils % 0.1 %; Hematocrit 38.8 % (42.0-52.0); Hemoglobin 10.9 g/dL (11.7-16.6); Lymphocytes % 98.6 %; Mean Corpuscular HGB Conc 28.1 g/dL (30.0-36.0); Mean Corpuscular Hemoglobin 30.6 pg (28.0-34.0); Mean Platelet Volume 11.8 fL (7.4-10.4); Monocytes # 0.8 10^3/uL (0.2-0.9); Monocytes % 0.4 %; Neutrophils % 0.8 %; Nucleated Red Blood Cells % 0 %; Platelet Count 144 10^3/cmm (130-400); Red Blood Count 3.56 10^6/uL (4.1-5.3); Red Cell Distribution Width 16.3 % (12.1-15.1)
[2019-06-09 19:48] LABS: Lymphocytes # 209.8 10^3/uL (0.8-4.8); White Blood Count 212.9 10^3/uL (4.0-10.0)
[2019-06-09 20:00] LABS: Slide Review Slide Review Perform
[2019-06-09 20:34] LABS: Absolute Segmented Neutrophil 2.1 10/cmm (1.6-7.1); Lymphocytes 92 %; Lymphocytes Absolute 210.8 10^3/cmm (1.2-3.4); Segmented Neutrophils 1 %; Total Cells Counted 100 (0-100)
[2019-06-09 20:35] LABS: Platelet Estimate Normal (Normal)
[2019-06-12 11:38] LABS: Basophils # 0.1 10^3/uL (0.0-0.1); Eosinophils # 0.1 10^3/uL (0.0-0.8); Hematocrit 40.4 % (42.0-52.0); Hemoglobin 11.3 g/dL (11.7-16.6); Lymphocytes % 98.6 %; Mean Corpuscular Hemoglobin 30.8 pg (28.0-34.0); Mean Corpuscular Volume 110.1 fL (80-94); Mean Platelet Volume 11.9 fL (7.4-10.4); Monocytes # 0.4 10^3/uL (0.2-0.9); Monocytes % 0.2 %; Neutrophils # 2.2 10^3/uL (1.8-7.7); Neutrophils % 1.1 %; Nucleated Red Blood Cells % 0 %; Platelet Count 135 10^3/cmm (130-400); Red Blood Count 3.67 10^6/uL (4.1-5.3); Red Cell Distribution Width 16.1 % (12.1-15.1)
[2019-06-12 12:32] LABS: Slide Review Slide Review Perform; White Blood Count 206.9 10^3/uL (4.0-10.0)
[2019-06-12 12:41] LABS: Smudge Cells 1+
--- NOTE | 2019-06-12 15:56 | ONC FU_ITS ---
Dr. Plaza follow up note Patient: Lb Garcia Unit #: [id number]: [id number] Dicatated By: Rosanne Plaza M.D.Date of Visit:Jun 12, 2019 Onc Med Follow-up/Prog Note History of Present Illness: Mr. Lb Garcia, 68-year-old male with a history of low-grade fever since February 2016 , now with night sweats and recently diagnosed with pneumonia , on 10/06/2016 his CBC showed white blood count 32.1 k , hemoglobin 14.4 hematocrit 45 platelets 170,000 differential shows lymphocytes 83.2% neutrophil 13.7% absolute lymphocytes count was 26,700 His repeat CBC on 10/28/2016 showed white blood count 33,700 hemoglobin 14.1 crit 41.9 platelets 193k, differential shows lymphocytes 78.5% neutrophil 18% absolute lymphocyte count 26,400 CBC from 03/17/2016 showed white blood count 12.5 hemoglobin 15.8 hematocrit 47.7 platelets 193,000 differential showed lymphocytes 58.2% neutrophil 37.6% absolute lymphocyte count was 7300 Patient said he has sleep apnea for which he uses CPAP machine at recently he would feel congested in his sinuses and also had urine tract infection off and on CT scan of chest abdomen pelvis done on 04/25/[address] scan of chest abdomen pelvis done on 11/25/2016 showed very mild progression in size and number of axillary, mediastinal, hilar and pelvic adenopathy Mild increase in size of spleen now 14.8 cm compared to 13.4 cm on 11/25/2016 .CT scan of chest abdomen pelvis done on 01/05/2019 showed stable bilateral axillary, mediastinal, right hilar lymphadenopathy no progression Splenomegaly, marginally increased from 04/25/2018 Progressive pelvic lymphadenopathy e.g. lymph node increase from 1.1-1.5 cm or 1.3 to 1.7 cm in left external iliac. And left internal iliac measures 1.8 compared to 1.4 cm earlier.Enlarged prostate f/u CT scan of chest abdomen pelvis done on 05/19/2019 showed axillary, mediastinal and hilar lymph nodes are indeterminate within no interval change the largest lymph node at right hilum is 14 mm Pelvic lymphadenopathy without significant progression in size or number since 01/05/2019. There are numerous enlarged lymph nodes. Some measures slightly smaller in size other slightly larger in size which is a probably due to technical variation Largest lymph node is 19 mm in the left obturator region. Markedly enlarged prostate gland next Splenomegaly stable at 16.5 cm in length. Cholelithiasis, Started on ibrutinib 420 mg by mouth daily along with allopurinol on 06/02/2019 Came for follow-up, denies any specific complaints except generalized weakness and fatigue otherwise, no fever or chills, no nausea or vomiting, no diarrhea constipation, no palpitation or shortness of breath, no jaundice tolerating ibrutinib well . Medications: Allopurinol 1 Tablet (of 100 mg) Oral daily, AmLODIPine Besylate 1 Tablet (of 10 mg) Oral daily, Aspirin 1 Tablet (of 81 mg) Tablet, enteric coated Oral daily, Finasteride 1 Tablet (of 5 mg) Oral daily, Lisinopril 1 Tablet (of 20 mg) Oral daily, Lovastatin ER 1 Tablet (of 40 mg) Tablet SR 24 HR Oral daily Allergies: No Known Allergies. Review of Systems: Constitutional - Appetite is good and weight is stable. No fever, chills, hot flashes, or night sweats. Energy level is fair, ENMT - No sinus congestion/drainage. No mouth sores. No sore throat or difficulty swallowing, Hematologic/Lymphatic - No abnormal bruising or bleeding, Respiratory - No shortness of breath. No cough. No pleuritic pain or hemoptysis, Cardiovascular - No angina pain. No palpitations, Gastrointestinal - No nausea or vomiting. No heartburn or acid reflux. No diarrhea or constipation. No blood in the stool or black stools, Genitourinary (M) - No dysuria. Positive for hematuria. No urinary frequency. No urgency or incontinence, Musculoskeletal - No joint or bone pain, Neurologic - No headache or dizziness. No numbness/paresthesias or other focal neurologic symptoms, Psychiatric - No anxiety or depression. No insomnia. Vital Signs: Performed on Jun 12, 2019 10:53 Height - 69.50 in Weight - 221.4 lbs (HIGH) BSA - 2.17 sq.m BMI - 32.23 (HIGH) Temperature - 98.3 F (LOW) Pulse - 64 /min Respiration - 24 /min BP - 141/70 mm(hg) (HIGH) O2 Sat - 97 % Pain - 0 Performance Status: 0 - Fully active, able to carry on all predisease activities without restrictions. (ECOG) Physical Examination: ENMT - No oral exudates, ulcers, masses, thrush or mucositis. Oropharynx clear. Tongue normal, Respiratory - Lungs are clear, Cardiovascular - Regular rate and rhythm of heart, Abdomen - Non-tender, non-distended, Good bowel sounds. No guarding or rebound tenderness. No pulsatile masses, Extremities - no edema. Lab/Imaging: Test performed on May 26, 2019 09:35 Sodium 142 mmol/L Potassium 4.5 mmol/L Chloride 101 mmol/L CO2 32 mmol/L Anion Gap 13.5 BUN 14 mg/dL Creatinine 1.0 mg/dL Cr Clearance (Est) 100.1500 mL/min eGFR 74.3 mL/min Glucose 105 mg/dL Calcium 9.9 mg/dL Protein, Total 7.3 g/dL Albumin 4.8 g/dL Globulin 2.5 g/dL Bilirubin, Total 0.4 mg/dL ALT (SGPT) 13 U/L AST (SGOT) 20 U/L Alkaline Phosphatase 84 IU/L Test performed on May 24, 2019 10:50 Hemoglobin A1C % 6.2 % WBC 218.7 10 3/uL RBC 3.83 10 6/uL HGB 11.8 g/dL HCT 40.5 % MCV 105.7 fL MCH 30.8 pg MCHC 29.1 g/dL RDW 15.7 % Platelet Count 145 10 3/cmm MPV 10.6 fL Neutrophils 2.2 10 3/uL Lymphocytes 211.4 10 3/uL Monocytes 4.7 10 3/uL Eosinophils 0.1 10 3/uL Basophils 0.2 10 3/uL Neutrophil % 0.9 % Lymphocyte % 96.7 % Monocyte % 2.1 % Eosinophil % 0.1 % Basophils % 0.1 % CBC Slide Review Slide Review Perform Test performed on Mar 28, 2019 12:00 LDH (Total) 200 U/L Impression: 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 Discussed with patient regarding his CT scan finding and lab workup. His white blood count is elevated due to lymphocytosis at 48.7 with a normal hemoglobin and hematocrit as well as platelets No evidence of peripheral lymphadenopathy or central lymphadenopathy except mild lymphadenopathy in pelvis maximum size 1.3 cm. When compared with CT scan of pelvis on 06/07/2009 it was 0.8 cm. Incidental finding, large thyroid goiter causing impingement on trachea and esophagus at the cervicothoracic junction the vast majority of monotypic B cells express CD38 next CLL panel, FISH showed positive for deletion of TP53 (unfavorable prognosis and chemotherapy resistance) And IGHV status shows non-mutation e.g. poor prognostic features Quantitative immunoglobulins checked on 11/04/2016 showed IgG 1100 normal being 700-1600 IgM 53 normal being 40-230 IgA 150 normal being 70-400 Beta-2 microglobulin 0.230 normal being 0.109 -0.253 CT scan of chest abdomen pelvis done on 11/25/2016 showed bilateral lower lobe parenchymal scarring with bilateral lower lobe bronchiectasis segment similar to 06/07/2009. Thyroid goiter with tracheal and esophageal impingements at cervicothoracic junction. Nonspecific right hilar lymph nodes no enlarged or pathological lymphadenopathy seen. Mild iliac region lymph nodes enlargements since 06/07/2009 Size about 1.3 cm. mild splenomegaly Repeat sonogram of abdomen On 12/20/2017 shows mild splenomegaly now 12.9 cm compared to 13.2 cm on 03/02/2017 On 02/09/2018 patient was evaluated by Dr. Alvarenga lumber bearer at [facility] and his labs done there showed white blood count 198.7 hemoglobin 13.4 hematocrit 34.4 platelets 188,000 IgA 100, IgM 43, IgG 889, SPEP no monoclonal peak, serum light chains showed kappa 2.44, lambda 2.9, kappa/lambda ratio 0.84 which was normal. And his recommendations were serial CT scan of chest abdomen pelvis once a year or sooner if needed. And continue to monitor CBC unless white blood count more than 200,000 as it may be associated with hyperviscosity and treatment options if decided to treat his recommendation was short course of bendamustine/Rituxan up to 4 cycles to achieve an initial response followed by ibrutinib maintenance. CT scan of chest abdomen pelvis done on 04/25/2018 showed very mild progression in the size and number of axillary, just tunnel, hilar and pelvic lymphadenopathy since 11/25/2016 Mild increase in size of spleen since 11/25/2016, now 14.8 cm compared to 13.4 before. Severe prostrate gland enlargement Plan: Discussed with patient regarding his labs white blood count 206.9 k, hemoglobin 11.3 hematocrit 40.4 platelets 135,000 CMP checked on 06/09/2019 showed normal values Clinically, patient is doing well, tolerating ibrutinib 420 malignant by mouth daily well along with allopurinol. His follow-up lab shows improvement in his white blood count e.g. 206,000 compared to 218,000 on 05/24/2019 and stable hemoglobin and platelet counts. And electrolytes and renal function test, no evidence of tumor lysis. We'll continue with ibrutinib 420 mg by mouth daily and repeat CBC and CMP in a week and discussed with patient via telemedicine unless patient has any issues. Signed By: Rosanne Plaza M.D. <<Signature on File>>
[2019-06-20 20:37] LABS: Eosinophils # 0.1 10^3/uL (0.0-0.8); Hematocrit 39.5 % (42.0-52.0); Hemoglobin 11.4 g/dL (11.7-16.6); Mean Corpuscular HGB Conc 28.9 g/dL (30.0-36.0); Mean Corpuscular Hemoglobin 31.6 pg (28.0-34.0); Mean Corpuscular Volume 109.4 fL (80-94); Mean Platelet Volume 12.4 fL (7.4-10.4); Monocytes # 0.3 10^3/uL (0.2-0.9); Monocytes % 0.2 %; Neutrophils # 3.1 10^3/uL (1.8-7.7); Neutrophils % 1.7 %; Nucleated Red Blood Cells % 0 %; Platelet Count 151 10^3/cmm (130-400); Red Blood Count 3.61 10^6/uL (4.1-5.3); Red Cell Distribution Width 16.4 % (12.1-15.1)
[2019-06-20 20:52] LABS: Alanine Aminotransferase 10 U/L (0-41); Albumin Level 4.4 g/dL (3.5-5.2); Alkaline Phosphatase 71 IU/L (40-130); Anion Gap 15.6 (5-19); Aspartate Amino Transferase 16 U/L (0-40); Blood Urea Nitrogen 15 mg/dL (8-23); Calcium 9.7 mg/dL (8.5-10.5); Carbon Dioxide 29 mmol/L (22-29); Chloride 100 mmol/L (98-107); Globulin 2.5 g/dL (1.3-4.6); Glomerular Filtration Rate 74.3 mL/min (90-130); Glucose 74 mg/dL (65-115); Osmolality Calculated 287 mOsm/kg (285-295); Potassium 3.6 mmol/L (3.5-5.1); Sodium 141 mmol/L (136-145); Total Bilirubin 0.4 mg/dL (0.15-1.2); Total Protein 6.9 g/dL (6.6-8.7)
[2019-06-20 22:06] LABS: Lymphocytes # 180.5 10^3/uL (0.8-4.8); Slide Review Slide Review Perform; White Blood Count 184.1 10^3/uL (4.0-10.0)
--- NOTE | 2019-06-21 17:24 | ONC FU_ITS ---
Dr. Plaza follow up note Patient: Lb Garcia Unit #: [id number]: [id number] Dicatated By: Rosanne Plaza M.D.Date of Visit:Jun 21, 2019 Telehealth Progress Note The patient has been informed that the visit may not be secure and acknowledged the information. I have explained the option of participating in a telephone or video visit during the [facility] emergency to the patient. After being given an opportunity to ask questions about and discuss this type of visit, the patient verbally consented to proceeding with the telephone/video visit. the patient understands that this service replaces an office visit and they may be billed and /or responsible for any applicable copayments History of Present Illness: Mr. Lb Garcia, 68-year-old male with a history of low-grade fever since February 2016 , now with night sweats and recently diagnosed with pneumonia , on 10/06/2016 his CBC showed white blood count 32.1 k , hemoglobin 14.4 hematocrit 45 platelets 170,000 differential shows lymphocytes 83.2% neutrophil 13.7% absolute lymphocytes count was 26,700 His repeat CBC on 10/28/2016 showed white blood count 33,700 hemoglobin 14.1 crit 41.9 platelets 193k, differential shows lymphocytes 78.5% neutrophil 18% absolute lymphocyte count 26,400 CBC from 03/17/2016 showed white blood count 12.5 hemoglobin 15.8 hematocrit 47.7 platelets 193,000 differential showed lymphocytes 58.2% neutrophil 37.6% absolute lymphocyte count was 7300 Patient said he has sleep apnea for which he uses CPAP machine at recently he would feel congested in his sinuses and also had urine tract infection off and on CT scan of chest abdomen pelvis done on 04/25/[address] scan of chest abdomen pelvis done on 11/25/2016 showed very mild progression in size and number of axillary, mediastinal, hilar and pelvic adenopathy Mild increase in size of spleen now 14.8 cm compared to 13.4 cm on 11/25/2016 .CT scan of chest abdomen pelvis done on 01/05/2019 showed stable bilateral axillary, mediastinal, right hilar lymphadenopathy no progression Splenomegaly, marginally increased from 04/25/2018 Progressive pelvic lymphadenopathy e.g. lymph node increase from 1.1-1.5 cm or 1.3 to 1.7 cm in left external iliac. And left internal iliac measures 1.8 compared to 1.4 cm earlier.Enlarged prostate f/u CT scan of chest abdomen pelvis done on 05/19/2019 showed axillary, mediastinal and hilar lymph nodes are indeterminate within no interval change the largest lymph node at right hilum is 14 mm Pelvic lymphadenopathy without significant progression in size or number since 01/05/2019. There are numerous enlarged lymph nodes. Some measures slightly smaller in size other slightly larger in size which is a probably due to technical variation Largest lymph node is 19 mm in the left obturator region. Markedly enlarged prostate gland next Splenomegaly stable at 16.5 cm in length. Cholelithiasis, Started on ibrutinib 420 mg by mouth daily along with allopurinol on 06/02/2019 Evaluated by phone, patient denies any specific complaints, no fever or chills, no nausea or vomiting no diarrhea constipation occasionally dizziness with allopurinol but now resolved otherwise tolerated ibrutinib and allopurinol well . Medications: Allopurinol 1 Tablet (of 100 mg) Oral daily, AmLODIPine Besylate 1 Tablet (of 10 mg) Oral daily, Aspirin 1 Tablet (of 81 mg) Tablet, enteric coated Oral daily, Finasteride 1 Tablet (of 5 mg) Oral daily, Lisinopril 1 Tablet (of 20 mg) Oral daily, Lovastatin ER 1 Tablet (of 40 mg) Tablet SR 24 HR Oral daily Allergies: No Known Allergies. Review of Systems: Review of Systems is not available for this patient. Vital Signs: Vitals are not available for this patient. Performance Status: 0 - Fully active, able to carry on all predisease activities without restrictions. (ECOG) Physical Examination: ENMT - denies any mouth sores or thrush, Respiratory - denies any shortness of breath or wheezing, Cardiovascular - denies any palpitation, Abdomen - denies any abdominal pain or fullness, Extremities - denies any edema or rash. Lab/Imaging: Test performed on Jun 12, 2019 11:15 WBC 206.9 10 3/uL RBC 3.67 10 6/uL HGB 11.3 g/dL HCT 40.4 % MCV 110.1 fL MCH 30.8 pg MCHC 28.0 g/dL RDW 16.1 % Platelet Count 135 10 3/cmm MPV 11.9 fL Neutrophils 2.2 10 3/uL Lymphocytes 204.0 10 3/uL Monocytes 0.4 10 3/uL Eosinophils 0.1 10 3/uL Basophils 0.1 10 3/uL Neutrophil % 1.1 % Lymphocyte % 98.6 % Monocyte % 0.2 % Eosinophil % 0.0 % Basophils % 0.0 % CBC Slide Review Slide Review Perform SLIDE REVIEW AGREES WITH AUTOMATED RESULTS Test performed on Jun 09, 2019 16:20 Phosphorus 3.9 mg/dL Sodium 140 mmol/L Uric Acid 4.3 mg/dL Potassium 4.1 mmol/L Chloride 101 mmol/L CO2 26 mmol/L Anion Gap 17.1 BUN 21 mg/dL Creatinine 1.1 mg/dL Cr Clearance (Est) 91.30 mL/min eGFR 66.6 mL/min Glucose 93 mg/dL Calcium 9.2 mg/dL Protein, Total 7.0 g/dL Albumin 4.5 g/dL Globulin 2.5 g/dL Bilirubin, Total 0.5 mg/dL ALT (SGPT) 12 U/L AST (SGOT) 18 U/L Alkaline Phosphatase 92 IU/L Manual Lymphs % 92 % Atypical Lymphs % 7.0 % Smudge Cells 1+ Manual Lymphocytes Abs 210.8 10 3/cmm Test performed on May 24, 2019 10:50 Hemoglobin A1C % 6.2 % Test performed on Mar 28, 2019 12:00 LDH (Total) 200 U/L Impression: 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 Discussed with patient regarding his CT scan finding and lab workup. His white blood count is elevated due to lymphocytosis at 48.7 with a normal hemoglobin and hematocrit as well as platelets No evidence of peripheral lymphadenopathy or central lymphadenopathy except mild lymphadenopathy in pelvis maximum size 1.3 cm. When compared with CT scan of pelvis on 06/07/2009 it was 0.8 cm. Incidental finding, large thyroid goiter causing impingement on trachea and esophagus at the cervicothoracic junction the vast majority of monotypic B cells express CD38 next CLL panel, FISH showed positive for deletion of TP53 (unfavorable prognosis and chemotherapy resistance) And IGHV status shows non-mutation e.g. poor prognostic features Quantitative immunoglobulins checked on 11/04/2016 showed IgG 1100 normal being 700-1600 IgM 53 normal being 40-230 IgA 150 normal being 70-400 Beta-2 microglobulin 0.230 normal being 0.109 -0.253 CT scan of chest abdomen pelvis done on 11/25/2016 showed bilateral lower lobe parenchymal scarring with bilateral lower lobe bronchiectasis segment similar to 06/07/2009. Thyroid goiter with tracheal and esophageal impingements at cervicothoracic junction. Nonspecific right hilar lymph nodes no enlarged or pathological lymphadenopathy seen. Mild iliac region lymph nodes enlargements since 06/07/2009 Size about 1.3 cm. mild splenomegaly Repeat sonogram of abdomen On 12/20/2017 shows mild splenomegaly now 12.9 cm compared to 13.2 cm on 03/02/2017 On 02/09/2018 patient was evaluated by Dr. Alvarenga pipe insulator at [facility] and his labs done there showed white blood count 198.7 hemoglobin 13.4 hematocrit 34.4 platelets 188,000 IgA 100, IgM 43, IgG 889, SPEP no monoclonal peak, serum light chains showed kappa 2.44, lambda 2.9, kappa/lambda ratio 0.84 which was normal. And his recommendations were serial CT scan of chest abdomen pelvis once a year or sooner if needed. And continue to monitor CBC unless white blood count more than 200,000 as it may be associated with hyperviscosity and treatment options if decided to treat his recommendation was short course of bendamustine/Rituxan up to 4 cycles to achieve an initial response followed by ibrutinib maintenance. CT scan of chest abdomen pelvis done on 04/25/2018 showed very mild progression in the size and number of axillary, just tunnel, hilar and pelvic lymphadenopathy since 11/25/2016 Mild increase in size of spleen since 11/25/2016, now 14.8 cm compared to 13.4 before. Severe prostrate gland enlargement Plan: Discussed with patient on the phone, regarding his labs from 06/20/2019 which shows white blood count 184.1 thousand compared to 206.9 thousand on 06/12/2019 and hemoglobin 11.4 hematocrit 39.5 platelets 151,000 CMP within normal limits Clinically, patient is doing well, tolerating ibrutinib/allopurinol well but with expected side effects. His follow-up CBC showed progressive drop in his total white blood cell/lymphocytes with stable platelet count and hemoglobin. And also CMP showed no abnormality in renal function test or electrolytes. Patient will continue with same treatment and we will repeat his CBC CMP in 2 weeks and then discuss with him on the phone. Patient was advised to call us in case he has any concerns or issues. Signed By: Rosanne Plaza M.D. <<Signature on File>>
[2019-07-05 20:09] LABS: Hematocrit 41.1 % (42.0-52.0); Hemoglobin 11.5 g/dL (11.7-16.6); Mean Corpuscular Hemoglobin 30.6 pg (28.0-34.0); Mean Corpuscular Volume 109.3 fL (80-94); Mean Platelet Volume 12.7 fL (7.4-10.4); Nucleated Red Blood Cells % 0 %; Platelet Count 154 10^3/cmm (130-400); Red Blood Count 3.76 10^6/uL (4.1-5.3); Red Cell Distribution Width 16.2 % (12.1-15.1)
[2019-07-05 20:52] LABS: White Blood Count 224.8 10^3/uL (4.0-10.0)
[2019-07-05 20:53] LABS: Slide Review Slide Review Perform
[2019-07-05 20:56] LABS: Absolute Segmented Neutrophil 11.2 10/cmm (1.6-7.1); Lymphocytes 95 %; Segmented Neutrophils 5 %; Smudge Cells 2+; Total Cells Counted 100 (0-100)
[2019-07-05 20:57] LABS: Anisocytosis 1+; Macrocytosis 1+; Platelet Estimate Normal (Normal)
[2019-07-05 21:14] LABS: Alanine Aminotransferase 16 U/L (0-41); Albumin Level 4.3 g/dL (3.5-5.2); Alkaline Phosphatase 77 IU/L (40-130); Anion Gap 17.6 (5-19); Aspartate Amino Transferase 17 U/L (0-40); Blood Urea Nitrogen 13 mg/dL (8-23); Calcium 9.6 mg/dL (8.5-10.5); Carbon Dioxide 26 mmol/L (22-29); Chloride 101 mmol/L (98-107); Globulin 2.8 g/dL (1.3-4.6); Glomerular Filtration Rate 74.3 mL/min (90-130); Glucose 87 mg/dL (65-115); Osmolality Calculated 288 mOsm/kg (285-295); Potassium 3.6 mmol/L (3.5-5.1); Sodium 141 mmol/L (136-145); Total Bilirubin 0.5 mg/dL (0.15-1.2); Total Protein 7.1 g/dL (6.6-8.7)
--- NOTE | 2019-07-06 17:10 | ONC FU_ITS ---
Dr. Plaza follow up note Patient: Lb Garcia Unit #: [id number]: [id number] Dicatated By: Rosanne Plaza M.D.Date of Visit:Jul 06, 2019 Telehealth Progress Note The patient has been informed that the visit may not be secure and acknowledged the information. I have explained the option of participating in a telephone or video visit during the [facility]- [facility] emergency to the patient. After being given an opportunity to ask questions about and discuss this type of visit, the patient verbally consented to proceeding with the telephone/video visit. the patient understands that this service replaces an office visit and they may be billed and /or responsible for any applicable copayments History of Present Illness: Mr. Lb Garcia, 68-year-old male with a history of low-grade fever since February 2016 , now with night sweats and recently diagnosed with pneumonia , on 10/06/2016 his CBC showed white blood count 32.1 k , hemoglobin 14.4 hematocrit 45 platelets 170,000 differential shows lymphocytes 83.2% neutrophil 13.7% absolute lymphocytes count was 26,700 His repeat CBC on 10/28/2016 showed white blood count 33,700 hemoglobin 14.1 crit 41.9 platelets 193k, differential shows lymphocytes 78.5% neutrophil 18% absolute lymphocyte count 26,400 CBC from 03/17/2016 showed white blood count 12.5 hemoglobin 15.8 hematocrit 47.7 platelets 193,000 differential showed lymphocytes 58.2% neutrophil 37.6% absolute lymphocyte count was 7300 Patient said he has sleep apnea for which he uses CPAP machine at recently he would feel congested in his sinuses and also had urine tract infection off and on CT scan of chest abdomen pelvis done on 04/25/[address] scan of chest abdomen pelvis done on 11/25/2016 showed very mild progression in size and number of axillary, mediastinal, hilar and pelvic adenopathy Mild increase in size of spleen now 14.8 cm compared to 13.4 cm on 11/25/2016 .CT scan of chest abdomen pelvis done on 01/05/2019 showed stable bilateral axillary, mediastinal, right hilar lymphadenopathy no progression Splenomegaly, marginally increased from 04/25/2018 Progressive pelvic lymphadenopathy e.g. lymph node increase from 1.1-1.5 cm or 1.3 to 1.7 cm in left external iliac. And left internal iliac measures 1.8 compared to 1.4 cm earlier.Enlarged prostate f/u CT scan of chest abdomen pelvis done on 05/19/2019 showed axillary, mediastinal and hilar lymph nodes are indeterminate within no interval change the largest lymph node at right hilum is 14 mm Pelvic lymphadenopathy without significant progression in size or number since 01/05/2019. There are numerous enlarged lymph nodes. Some measures slightly smaller in size other slightly larger in size which is a probably due to technical variation Largest lymph node is 19 mm in the left obturator region. Markedly enlarged prostate gland next Splenomegaly stable at 16.5 cm in length. Cholelithiasis, Started on ibrutinib 420 mg by mouth daily along with allopurinol on 06/02/2019 Evaluated by phone,Patient denies any specific complaints, no nausea or vomiting no fever or chills, no night sweats, no weight loss, no peripheral lymphadenopathy in fact, as per patient axillary lymph nodes are shrinking. Tolerating ibrutinib well otherwise . Medications: Allopurinol 1 Tablet (of 100 mg) Oral daily, AmLODIPine Besylate 1 Tablet (of 10 mg) Oral daily, Aspirin 1 Tablet (of 81 mg) Tablet, enteric coated Oral daily, Finasteride 1 Tablet (of 5 mg) Oral daily, Lisinopril 1 Tablet (of 20 mg) Oral daily, Lovastatin ER 1 Tablet (of 40 mg) Tablet SR 24 HR Oral daily Allergies: No Known Allergies. Review of Systems: Review of Systems is not available for this patient. Vital Signs: Vitals are not available for this patient. Performance Status: 0 - Fully active, able to carry on all predisease activities without restrictions. (ECOG) Physical Examination: ENMT - no mouth sores, Respiratory - no shortness of breath or wheezing, Cardiovascular - denies tachycardia, Abdomen - denies any abdominal pain or distention, Extremities - denies any edema or rash. Lab/Imaging: Test performed on Jun 20, 2019 16:30 Sodium 141 mmol/L Potassium 3.6 mmol/L Chloride 100 mmol/L CO2 29 mmol/L Anion Gap 15.6 BUN 15 mg/dL Creatinine 1.0 mg/dL Cr Clearance (Est) 100.4300 mL/min eGFR 74.3 mL/min Glucose 74 mg/dL Calcium 9.7 mg/dL Protein, Total 6.9 g/dL Albumin 4.4 g/dL Globulin 2.5 g/dL Bilirubin, Total 0.4 mg/dL ALT (SGPT) 10 U/L AST (SGOT) 16 U/L Alkaline Phosphatase 71 IU/L WBC 184.1 10 3/uL RBC 3.61 10 6/uL HGB 11.4 g/dL HCT 39.5 % MCV 109.4 fL MCH 31.6 pg MCHC 28.9 g/dL RDW 16.4 % Platelet Count 151 10 3/cmm MPV 12.4 fL Neutrophils 3.1 10 3/uL Lymphocytes 180.5 10 3/uL Monocytes 0.3 10 3/uL Eosinophils 0.1 10 3/uL Basophils 0.0 10 3/uL Neutrophil % 1.7 % Lymphocyte % 98.0 % Monocyte % 0.2 % Eosinophil % 0.0 % Basophils % 0.0 % CBC Slide Review Slide Review Perform SLIDE REVIEW AGREES WITH AUTOMATED RESULTS Test performed on Jun 09, 2019 16:20 Phosphorus 3.9 mg/dL Uric Acid 4.3 mg/dL Manual Lymphs % 92 % Atypical Lymphs % 7.0 % Smudge Cells 1+ Manual Lymphocytes Abs 210.8 10 3/cmm Test performed on May 24, 2019 10:50 Hemoglobin A1C % 6.2 % Test performed on Mar 28, 2019 12:00 LDH (Total) 200 U/L Impression: 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 Discussed with patient regarding his CT scan finding and lab workup. His white blood count is elevated due to lymphocytosis at 48.7 with a normal hemoglobin and hematocrit as well as platelets No evidence of peripheral lymphadenopathy or central lymphadenopathy except mild lymphadenopathy in pelvis maximum size 1.3 cm. When compared with CT scan of pelvis on 06/07/2009 it was 0.8 cm. Incidental finding, large thyroid goiter causing impingement on trachea and esophagus at the cervicothoracic junction the vast majority of monotypic B cells express CD38 next CLL panel, FISH showed positive for deletion of TP53 (unfavorable prognosis and chemotherapy resistance) And IGHV status shows non-mutation e.g. poor prognostic features Quantitative immunoglobulins checked on 11/04/2016 showed IgG 1100 normal being 700-1600 IgM 53 normal being 40-230 IgA 150 normal being 70-400 Beta-2 microglobulin 0.230 normal being 0.109 -0.253 CT scan of chest abdomen pelvis done on 11/25/2016 showed bilateral lower lobe parenchymal scarring with bilateral lower lobe bronchiectasis segment similar to 06/07/2009. Thyroid goiter with tracheal and esophageal impingements at cervicothoracic junction. Nonspecific right hilar lymph nodes no enlarged or pathological lymphadenopathy seen. Mild iliac region lymph nodes enlargements since 06/07/2009 Size about 1.3 cm. mild splenomegaly Repeat sonogram of abdomen On 12/20/2017 shows mild splenomegaly now 12.9 cm compared to 13.2 cm on 03/02/2017 On 02/09/2018 patient was evaluated by Dr. Alvarenga support architect at [facility] and his labs done there showed white blood count 198.7 hemoglobin 13.4 hematocrit 34.4 platelets 188,000 IgA 100, IgM 43, IgG 889, SPEP no monoclonal peak, serum light chains showed kappa 2.44, lambda 2.9, kappa/lambda ratio 0.84 which was normal. And his recommendations were serial CT scan of chest abdomen pelvis once a year or sooner if needed. And continue to monitor CBC unless white blood count more than 200,000 as it may be associated with hyperviscosity and treatment options if decided to treat his recommendation was short course of bendamustine/Rituxan up to 4 cycles to achieve an initial response followed by ibrutinib maintenance. CT scan of chest abdomen pelvis done on 04/25/2018 showed very mild progression in the size and number of axillary, just tunnel, hilar and pelvic lymphadenopathy since 11/25/2016 Mild increase in size of spleen since 11/25/2016, now 14.8 cm compared to 13.4 before. Severe prostrate gland enlargement Plan: discussed with patient via telephone regarding his lab White blood cell 224,000 hemoglobin 11.5 hematocrit 41.1 platelets 154,000 CMP within normal limits Clinically, patient is doing well, no B symptoms, tolerating ibrutinib well but his follow-up lab shows increased in total white blood cell but stable hemoglobin and platelets. Causes of increase in white blood cell/lymphocytes is most likely due to ibrutinib induced cell release from tissue compartment e.g. lymph nodes/spleen into the blood circulation, which has no negative outcome, would expect improvement in the count in next few weeks. Patient was reassured and will repeat his CBC in 2 weeks. Patient was advised in case he has any concern or question he needed to call us otherwise repeat CBC in 2 weeks and discuss. Signed By: Rosanne Plaza M.D. <<Signature on File>>
== END 2019-07-06 23:59 | disposition home or self-care (01) ==
LOC: ONCMED 06:46
PROVIDERS: Family Provider Nurse Practitioner; PCP Nurse Practitioner; Visit Provider Internal Medicine Hematology & Oncology
DX: C91.90 Lymphoid leukemia, unspecified not having achieved remission (principal); D72.820 Lymphocytosis (symptomatic); R16.1 Splenomegaly, not elsewhere classified; N40.0 Benign prostatic hyperplasia without lower urinary tract symptoms; Z79.899 Other long term (current) drug therapy
CPT/HCPCS: 36415; 80053; 80500; 84100; 84550; 85007; 85025; 99214

== ENCOUNTER 2019-07-24 06:45 | Outpatient (RCR) | payer MEDICARE, OTHER, SELFPAY ==
[2019-07-21 11:07] LABS: Basophils # 0.1 10^3/uL (0.0-0.1); Eosinophils # 0.1 10^3/uL (0.0-0.8); Hematocrit 44.6 % (42.0-52.0); Hemoglobin 12.3 g/dL (11.7-16.6); Lymphocytes % 98.6 %; Mean Corpuscular HGB Conc 27.6 g/dL (30.0-36.0); Mean Corpuscular Hemoglobin 29.4 pg (28.0-34.0); Mean Corpuscular Volume 106.7 fL (80-94); Mean Platelet Volume 12.2 fL (7.4-10.4); Monocytes # 0.3 10^3/uL (0.2-0.9); Monocytes % 0.1 %; Neutrophils # 3.4 10^3/uL (1.8-7.7); Neutrophils % 1.2 %; Nucleated Red Blood Cells % 0 %; Platelet Count 166 10^3/cmm (130-400); Red Blood Count 4.18 10^6/uL (4.1-5.3); Red Cell Distribution Width 16.3 % (12.1-15.1)
[2019-07-21 11:40] LABS: Alanine Aminotransferase 13 U/L (0-41); Albumin Level 4.6 g/dL (3.5-5.2); Alkaline Phosphatase 80 IU/L (40-130); Anion Gap 15.7 (5-19); Aspartate Amino Transferase 16 U/L (0-40); Blood Urea Nitrogen 11 mg/dL (8-23); Calcium 10.4 mg/dL (8.5-10.5); Carbon Dioxide 28 mmol/L (22-29); Chloride 102 mmol/L (98-107); Globulin 2.9 g/dL (1.3-4.6); Glomerular Filtration Rate 66.6 mL/min (90-130); Glucose 104 mg/dL (65-115); Osmolality Calculated 290 mOsm/kg (285-295); Potassium 3.7 mmol/L (3.5-5.1); Sodium 142 mmol/L (136-145); Total Bilirubin 0.5 mg/dL (0.15-1.2); Total Protein 7.5 g/dL (6.6-8.7)
[2019-07-21 12:12] LABS: Lymphocytes # 298.6 10^3/uL (0.8-4.8)
[2019-07-21 12:13] LABS: Slide Review Slide Review Perform; White Blood Count 302.8 10^3/uL (4.0-10.0)
--- NOTE | 2019-07-24 17:47 | ONC FU_ITS ---
Dr. Plaza follow up note Patient: Lb Garcia Unit #: [id number]: [id number] Dicatated By: Rosanne Plaza M.D.Date of Visit:July 24, 2019 Onc Med Follow-up/Prog Note History of Present Illness: Mr. Lb Garcia, 68-year-old male with a history of low-grade fever since February 2016 , now with night sweats and recently diagnosed with pneumonia , on 10/06/2016 his CBC showed white blood count 32.1 k , hemoglobin 14.4 hematocrit 45 platelets 170,000 differential shows lymphocytes 83.2% neutrophil 13.7% absolute lymphocytes count was 26,700 His repeat CBC on 10/28/2016 showed white blood count 33,700 hemoglobin 14.1 crit 41.9 platelets 193k, differential shows lymphocytes 78.5% neutrophil 18% absolute lymphocyte count 26,400 CBC from 03/17/2016 showed white blood count 12.5 hemoglobin 15.8 hematocrit 47.7 platelets 193,000 differential showed lymphocytes 58.2% neutrophil 37.6% absolute lymphocyte count was 7300 Patient said he has sleep apnea for which he uses CPAP machine at recently he would feel congested in his sinuses and also had urine tract infection off and on CT scan of chest abdomen pelvis done on 04/25/[address] scan of chest abdomen pelvis done on 11/25/2016 showed very mild progression in size and number of axillary, mediastinal, hilar and pelvic adenopathy Mild increase in size of spleen now 14.8 cm compared to 13.4 cm on 11/25/2016 .CT scan of chest abdomen pelvis done on 01/05/2019 showed stable bilateral axillary, mediastinal, right hilar lymphadenopathy no progression Splenomegaly, marginally increased from 04/25/2018 Progressive pelvic lymphadenopathy e.g. lymph node increase from 1.1-1.5 cm or 1.3 to 1.7 cm in left external iliac. And left internal iliac measures 1.8 compared to 1.4 cm earlier.Enlarged prostate f/u CT scan of chest abdomen pelvis done on 05/19/2019 showed axillary, mediastinal and hilar lymph nodes are indeterminate within no interval change the largest lymph node at right hilum is 14 mm Pelvic lymphadenopathy without significant progression in size or number since 01/05/2019. There are numerous enlarged lymph nodes. Some measures slightly smaller in size other slightly larger in size which is a probably due to technical variation Largest lymph node is 19 mm in the left obturator region. Markedly enlarged prostate gland next Splenomegaly stable at 16.5 cm in length. Cholelithiasis, Started on ibrutinib 420 mg by mouth daily along with allopurinol on 06/02/2019 Came for follow-up, denies any specific complaints, no fever or chills, no nausea or vomiting, no night sweats, no headaches, no melena or hematochezia, no hemoptysis or hematemesis, no jaundice, no abdominal pain or fullness,, Peripheral lymphadenopathy improving more energetic, tolerating ibrutinib well . Medications: Allopurinol 1 Tablet (of 100 mg) Oral daily, AmLODIPine Besylate 1 Tablet (of 10 mg) Oral daily, Finasteride 1 Tablet (of 5 mg) Oral daily, Lisinopril 1 Tablet (of 20 mg) Oral daily, Lovastatin ER 1 Tablet (of 40 mg) Tablet SR 24 HR Oral daily Allergies: No Known Allergies. Review of Systems: Constitutional - Appetite is good and weight is slowly increasing. No fever, chills, hot flashes, or night sweats. Energy level is [id number], ENMT - No sinus congestion/drainage. No mouth sores. No sore throat or difficulty swallowing, Hematologic/Lymphatic - No abnormal bruising or bleeding, Respiratory - No shortness of breath. No cough. No pleuritic pain or hemoptysis, Cardiovascular - No angina pain. No palpitations, Gastrointestinal - No nausea or vomiting. No heartburn or acid reflux. No diarrhea or constipation. No blood in the stool or black stools, Genitourinary (M) - No dysuria. Positive for hematuria. No urinary frequency. No urgency or incontinence, Musculoskeletal - No joint or bone pain, Neurologic - No headache or dizziness. No numbness/paresthesias or other focal neurologic symptoms, Psychiatric - No anxiety or depression. No insomnia. Vital Signs: Performed on July 24, 2019 09:42 Height - 69.50 in Weight - 223.8 lbs (HIGH) BSA - 2.18 sq.m BMI - 32.58 (HIGH) Temperature - 98.3 F (LOW) Pulse - 65 /min Respiration - 18 /min BP - 173/82 mm(hg) (HIGH) O2 Sat - 95 % (LOW) Pain - 0 Performance Status: 0 - Fully active, able to carry on all predisease activities without restrictions. (ECOG) Physical Examination: ENMT - no mouth sores, Respiratory - Lungs are clear, Cardiovascular - Regular rate and rhythm of heart, Abdomen - bowel sounds present, soft, Extremities - no edema or rash. Lab/Imaging: Test performed on July 21, 2019 10:09 Sodium 142 mmol/L Potassium 3.7 mmol/L Chloride 102 mmol/L CO2 28 mmol/L Anion Gap 15.7 BUN 11 mg/dL Creatinine 1.1 mg/dL Cr Clearance (Est) 91.3000 mL/min eGFR 66.6 mL/min Glucose 104 mg/dL Calcium 10.4 mg/dL Protein, Total 7.5 g/dL Albumin 4.6 g/dL Globulin 2.9 g/dL Bilirubin, Total 0.5 mg/dL ALT (SGPT) 13 U/L AST (SGOT) 16 U/L Alkaline Phosphatase 80 IU/L Test performed on Jul 05, 2019 13:45 WBC 224.8 10 3/uL RBC 3.76 10 6/uL HGB 11.5 g/dL Manual Lymphs % 95 % HCT 41.1 % MCV 109.3 fL MCH 30.6 pg MCHC 28.0 g/dL RDW 16.2 % Platelet Count 154 10 3/cmm MPV 12.7 fL Smudge Cells 2+ CBC Slide Review Slide Review Perform Anisocytosis 1+ Macrocytosis 1+ Test performed on Jun 20, 2019 16:30 Neutrophils 3.1 10 3/uL Lymphocytes 180.5 10 3/uL Monocytes 0.3 10 3/uL Eosinophils 0.1 10 3/uL Basophils 0.0 10 3/uL Neutrophil % 1.7 % Lymphocyte % 98.0 % Monocyte % 0.2 % Eosinophil % 0.0 % Basophils % 0.0 % Test performed on Jun 09, 2019 16:20 Phosphorus 3.9 mg/dL Uric Acid 4.3 mg/dL Atypical Lymphs % 7.0 % Manual Lymphocytes Abs 210.8 10 3/cmm Test performed on May 24, 2019 10:50 Hemoglobin A1C % 6.2 % Test performed on Mar 28, 2019 12:00 LDH (Total) 200 U/L Impression: 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 Discussed with patient regarding his CT scan finding and lab workup. His white blood count is elevated due to lymphocytosis at 48.7 with a normal hemoglobin and hematocrit as well as platelets No evidence of peripheral lymphadenopathy or central lymphadenopathy except mild lymphadenopathy in pelvis maximum size 1.3 cm. When compared with CT scan of pelvis on 06/07/2009 it was 0.8 cm. Incidental finding, large thyroid goiter causing impingement on trachea and esophagus at the cervicothoracic junction the vast majority of monotypic B cells express CD38 next CLL panel, FISH showed positive for deletion of TP53 (unfavorable prognosis and chemotherapy resistance) And IGHV status shows non-mutation e.g. poor prognostic features Quantitative immunoglobulins checked on 11/04/2016 showed IgG 1100 normal being 700-1600 IgM 53 normal being 40-230 IgA 150 normal being 70-400 Beta-2 microglobulin 0.230 normal being 0.109 -0.253 CT scan of chest abdomen pelvis done on 11/25/2016 showed bilateral lower lobe parenchymal scarring with bilateral lower lobe bronchiectasis segment similar to 06/07/2009. Thyroid goiter with tracheal and esophageal impingements at cervicothoracic junction. Nonspecific right hilar lymph nodes no enlarged or pathological lymphadenopathy seen. Mild iliac region lymph nodes enlargements since 06/07/2009 Size about 1.3 cm. mild splenomegaly Repeat sonogram of abdomen On 12/20/2017 shows mild splenomegaly now 12.9 cm compared to 13.2 cm on 03/02/2017 On 02/09/2018 patient was evaluated by Dr. Alvarenga feed research aide at [facility] and his labs done there showed white blood count 198.7 hemoglobin 13.4 hematocrit 34.4 platelets 188,000 IgA 100, IgM 43, IgG 889, SPEP no monoclonal peak, serum light chains showed kappa 2.44, lambda 2.9, kappa/lambda ratio 0.84 which was normal. And his recommendations were serial CT scan of chest abdomen pelvis once a year or sooner if needed. And continue to monitor CBC unless white blood count more than 200,000 as it may be associated with hyperviscosity and treatment options if decided to treat his recommendation was short course of bendamustine/Rituxan up to 4 cycles to achieve an initial response followed by ibrutinib maintenance. CT scan of chest abdomen pelvis done on 04/25/2018 showed very mild progression in the size and number of axillary, just tunnel, hilar and pelvic lymphadenopathy since 11/25/2016 Mild increase in size of spleen since 11/25/2016, now 14.8 cm compared to 13.4 before. Severe prostrate gland enlargement Plan: Discussed with patient regarding his labs white blood count 302,800, hemoglobin 12.3, hematocrit 44.6 platelets 166,000 CMP within normal limits Clinically, patient is doing well, tolerating ibrutinib well but with expected side effects e.g. progressive lymphocytosis/leukocytosis probably due to lymphocytes release from lymph nodes/spleen/bone marrow, his overall symptoms of improving, e.g. generalized weakness and fatigue, hemoglobin/platelet count is also improving. At this point we'll continue to watch closely and he will return to clinic in 2 weeks with CBC CMP and LDH, patient was reassured that lymphocytosis/leukocytosis is a common side effect with ibrutinib, and more so patient it is asymptomatic and usually peak in 12-14 weeks and then gradually drops but in some patient it can cause, bleeding, stroke or headaches. Patient was advised in case he has any symptoms are sudden deterioration of mental status, he need to go to hospital immediately. Otherwise return to clinic in 2 weeks with CBC CMP and will also get left upper quadrant sonogram to check spleen size. Signed By: Rosanne Plaza M.D. <<Signature on File>>
== END 2019-08-06 23:59 | disposition home or self-care (01) ==
LOC: ONCMED 06:45
PROVIDERS: PCP Nurse Practitioner; Visit Provider Internal Medicine Hematology & Oncology
DX: C91.90 Lymphoid leukemia, unspecified not having achieved remission (principal); D72.820 Lymphocytosis (symptomatic); E04.9 Nontoxic goiter, unspecified; R16.1 Splenomegaly, not elsewhere classified; N40.0 Benign prostatic hyperplasia without lower urinary tract symptoms; E11.22 Type 2 diabetes mellitus with diabetic chronic kidney disease; N18.9 Chronic kidney disease, unspecified; E78.5 Hyperlipidemia, unspecified; G47.33 Obstructive sleep apnea (adult) (pediatric); M81.0 Age-related osteoporosis without current pathological fracture
CPT/HCPCS: 80053; 85025; 99214

== ENCOUNTER 2019-08-17 09:01 | Outpatient (CLI) | payer MEDICARE, OTHER, SELFPAY ==
--- NOTE | 2019-08-17 09:08 | US_ITS ---
WS: [id number] Complete ABDOMINAL ULTRASOUND HISTORY: CLL COMPARISON: 12/20/2017. CT 05/19/2019. Liver: 18.3 cm in length. Liver is very slightly enlarged. No mass or bile duct dilatation. Gallbladder: Normally distended gallbladder with stones. No pericholecystic fluid or gallbladder wall thickening. Gallbladder wall thickness: 0.3 cm. Pancreas: Normal size and echogenicity. CBD: 0.6 cm. Right kidney: 12.9 cm x 5.5 cm x 5.0 cm. Very mild dilatation of the RIGHT renal pelvis. No mass. Left kidney: 14.4 cm x 5.1 cm x 5.7 cm. Mild dilatation of the LEFT renal pelvis and proximal ureter . 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 Spleen: Spleen is enlarged measuring 16.6 cm in length. Similar to the prior examinations. Abdominal aorta and IVC are within normal limits. No ascites. US/US abdomen complete* [id number] IMPRESSION: 1. Mild, stable bilateral renal pelvic dilatation. Slightly greater on the LEF T. 2. Stable splenomegaly. 3. Cholelithiasis without acute cholecystitis.
[2019-08-17 10:06] LABS: Eosinophils # 0.2 10^3/uL (0.0-0.8); Eosinophils % 0.1 %; Hemoglobin 12.7 g/dL (11.7-16.6); Lymphocytes % 97.2 %; Mean Corpuscular HGB Conc 28.2 g/dL (30.0-36.0); Mean Corpuscular Hemoglobin 29.1 pg (28.0-34.0); Mean Corpuscular Volume 103.2 fL (80-94); Mean Platelet Volume 10.8 fL (7.4-10.4); Monocytes # 2.1 10^3/uL (0.2-0.9); Monocytes % 0.9 %; Neutrophils # 4.1 10^3/uL (1.8-7.7); Neutrophils % 1.7 %; Nucleated Red Blood Cells % 0 %; Platelet Count 146 10^3/cmm (130-400); Red Blood Count 4.36 10^6/uL (4.1-5.3); Red Cell Distribution Width 15.2 % (12.1-15.1)
[2019-08-17 10:21] LABS: Alanine Aminotransferase 14 U/L (0-41); Albumin Level 4.9 g/dL (3.5-5.2); Alkaline Phosphatase 92 IU/L (40-130); Anion Gap 17.3 (5-19); Aspartate Amino Transferase 18 U/L (0-40); Blood Urea Nitrogen 12 mg/dL (8-23); Calcium 9.9 mg/dL (8.5-10.5); Carbon Dioxide 30 mmol/L (22-29); Chloride 100 mmol/L (98-107); Globulin 2.9 g/dL (1.3-4.6); Glomerular Filtration Rate 74.3 mL/min (90-130); Glucose 122 mg/dL (65-115); Lactate Dehydrogenase 231 U/L (135-225); Osmolality Calculated 293 mOsm/kg (285-295); Potassium 4.3 mmol/L (3.5-5.1); Sodium 143 mmol/L (136-145); Total Bilirubin 0.5 mg/dL (0.15-1.2); Total Protein 7.8 g/dL (6.6-8.7)
[2019-08-17 11:02] LABS: Lymphocytes # 228.2 10^3/uL (0.8-4.8); Slide Review Slide Review Perform; White Blood Count 234.8 10^3/uL (4.0-10.0)
== END 2019-08-17 09:02 | disposition home or self-care (01) ==
LOC: RAD 09:04
PROVIDERS: PCP Nurse Practitioner; Visit Provider Internal Medicine Hematology & Oncology
DX: C91.10 Chronic lymphocytic leukemia of B-cell type not having achieved remission (principal); R16.1 Splenomegaly, not elsewhere classified; K80.20 Calculus of gallbladder without cholecystitis without obstruction
CPT/HCPCS: 36415; 76700; 80053; 83615; 85025

== ENCOUNTER 2019-08-18 06:52 | Outpatient (RCR) | payer MEDICARE, OTHER, SELFPAY ==
--- NOTE | 2019-08-18 12:40 | ONC FU_ITS ---
Dr. Plaza follow up note Patient: Lb Garcia Unit #: [id number]: [id number] Dicatated By: Rosanne Plaza M.D.Date of Visit:Aug 18, 2019 Onc Med Follow-up/Prog Note History of Present Illness: Mr. Lb Garcia, 68-year-old male with a history of low-grade fever since February 2016 , now with night sweats and recently diagnosed with pneumonia , on 10/06/2016 his CBC showed white blood count 32.1 k , hemoglobin 14.4 hematocrit 45 platelets 170,000 differential shows lymphocytes 83.2% neutrophil 13.7% absolute lymphocytes count was 26,700 His repeat CBC on 10/28/2016 showed white blood count 33,700 hemoglobin 14.1 crit 41.9 platelets 193k, differential shows lymphocytes 78.5% neutrophil 18% absolute lymphocyte count 26,400 CBC from 03/17/2016 showed white blood count 12.5 hemoglobin 15.8 hematocrit 47.7 platelets 193,000 differential showed lymphocytes 58.2% neutrophil 37.6% absolute lymphocyte count was 7300 Patient said he has sleep apnea for which he uses CPAP machine at recently he would feel congested in his sinuses and also had urine tract infection off and on CT scan of chest abdomen pelvis done on 04/25/[address] scan of chest abdomen pelvis done on 11/25/2016 showed very mild progression in size and number of axillary, mediastinal, hilar and pelvic adenopathy Mild increase in size of spleen now 14.8 cm compared to 13.4 cm on 11/25/2016 .CT scan of chest abdomen pelvis done on 01/05/2019 showed stable bilateral axillary, mediastinal, right hilar lymphadenopathy no progression Splenomegaly, marginally increased from 04/25/2018 Progressive pelvic lymphadenopathy e.g. lymph node increase from 1.1-1.5 cm or 1.3 to 1.7 cm in left external iliac. And left internal iliac measures 1.8 compared to 1.4 cm earlier.Enlarged prostate f/u CT scan of chest abdomen pelvis done on 05/19/2019 showed axillary, mediastinal and hilar lymph nodes are indeterminate within no interval change the largest lymph node at right hilum is 14 mm Pelvic lymphadenopathy without significant progression in size or number since 01/05/2019. There are numerous enlarged lymph nodes. Some measures slightly smaller in size other slightly larger in size which is a probably due to technical variation Largest lymph node is 19 mm in the left obturator region. Markedly enlarged prostate gland next Splenomegaly stable at 16.5 cm in length. Cholelithiasis, Started on ibrutinib 420 mg by mouth daily along with allopurinol on 06/02/2019, On August 03, 2019, patient called the office regarding off and on episode of palpitations and sometime it last for long time, patient was advised to discontinue ibrutinib immediately, which he did on August 03, 2019 and as per patient he had another episode which lasted for a few minutes after that and since then no more palpitations. Patient was referred to cardiology for evaluation now work-up is in progress Came for follow-up, denies any specific complaints, no more episode of palpitations since ibrutinib was discontinued except one episode which lasted for a few minutes., Patient has seen cardiology and now work-up is in progress and now has portable threat monitoring analyst on. No night sweats, no weight loss, no recurrent fever. But persistent peripheral lymphadenopathy involving neck and bilateral axilla and inguinal area. No headaches, no blurred vision or double vision, no fever or chills, no abdominal fullness. . Medications: AmLODIPine Besylate 1 Tablet (of 10 mg) Oral daily, Finasteride 1 Tablet (of 5 mg) Oral daily, Lisinopril 1 Tablet (of 20 mg) Oral daily, Lisinopril 1 Tablet (of 20 mg) Oral b.i.d., Lovastatin ER 1 Tablet (of 40 mg) Tablet SR 24 HR Oral daily Allergies: No Known Allergies. Review of Systems: Constitutional - Appetite is good and weight is slowly increasing. No fever, chills, hot flashes, or night sweats. Energy level is [id number], ENMT - No sinus congestion/drainage. No mouth sores. No sore throat or difficulty swallowing, Hematologic/Lymphatic - No abnormal bruising or bleeding, Respiratory - No shortness of breath. No cough. No pleuritic pain or hemoptysis, Cardiovascular - No angina pain. No palpitations, Gastrointestinal - No nausea or vomiting. No heartburn or acid reflux. No diarrhea or constipation. No blood in the stool or black stools, Genitourinary (M) - No dysuria. Positive for hematuria. No urinary frequency. No urgency or incontinence, Musculoskeletal - No joint or bone pain, Neurologic - No headache or dizziness. No numbness/paresthesias or other focal neurologic symptoms, Psychiatric - No anxiety or depression. No insomnia. Vital Signs: Performed on Aug 18, 2019 09:16 Height - 69.50 in Weight - 225.4 lbs (HIGH) BSA - 2.18 sq.m BMI - 32.81 (HIGH) Temperature - 97.1 F (LOW) Pulse - 77 /min Respiration - 20 /min BP - 141/72 mm(hg) (HIGH) O2 Sat - 97 % Pain - 0 Performance Status: 1 - No physically strenuous activity, but ambulatory and able to carry out light or sedentary work (e.g. office work, light house work). (ECOG) Physical Examination: ENMT - No mouth sores, no thrush, no jaundice but a palpable bile lateral cervical lymphadenopathy and bilateral axillary lymphadenopathy, Respiratory - Lungs are clear, Cardiovascular - Regular rate and rhythm of heart, Abdomen - Soft, bowel sounds present, nontender, Extremities - No edema or rash. Lab/Imaging: Test performed on July 21, 2019 10:09 Sodium 142 mmol/L Potassium 3.7 mmol/L Chloride 102 mmol/L CO2 28 mmol/L Anion Gap 15.7 BUN 11 mg/dL Creatinine 1.1 mg/dL Cr Clearance (Est) 92.29 mL/min eGFR 66.6 mL/min Glucose 104 mg/dL Calcium 10.4 mg/dL Protein, Total 7.5 g/dL Albumin 4.6 g/dL Globulin 2.9 g/dL Bilirubin, Total 0.5 mg/dL ALT (SGPT) 13 U/L AST (SGOT) 16 U/L Alkaline Phosphatase 80 IU/L WBC 302.8 10 3/uL RBC 4.18 10 6/uL HGB 12.3 g/dL HCT 44.6 % MCV 106.7 fL MCH 29.4 pg MCHC 27.6 g/dL RDW 16.3 % Platelet Count 166 10 3/cmm MPV 12.2 fL Neutrophils 3.4 10 3/uL Lymphocytes 298.6 10 3/uL Monocytes 0.3 10 3/uL Eosinophils 0.1 10 3/uL Basophils 0.1 10 3/uL Neutrophil % 1.2 % Lymphocyte % 98.6 % Monocyte % 0.1 % Eosinophil % 0.0 % Basophils % 0.0 % CBC Slide Review Slide Review Perform SLIDE REVIEW AGREES WITH AUTOMATED RESULTS Test performed on Jul 05, 2019 13:45 Manual Lymphs % 95 % Smudge Cells 2+ Anisocytosis 1+ Macrocytosis 1+ Test performed on Jun 09, 2019 16:20 Phosphorus 3.9 mg/dL Uric Acid 4.3 mg/dL Atypical Lymphs % 7.0 % Manual Lymphocytes Abs 210.8 10 3/cmm Test performed on May 24, 2019 10:50 Hemoglobin A1C % 6.2 % Test performed on Mar 28, 2019 12:00 LDH (Total) 200 U/L Impression: 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 Discussed with patient regarding his CT scan finding and lab workup. His white blood count is elevated due to lymphocytosis at 48.7 with a normal hemoglobin and hematocrit as well as platelets No evidence of peripheral lymphadenopathy or central lymphadenopathy except mild lymphadenopathy in pelvis maximum size 1.3 cm. When compared with CT scan of pelvis on 06/07/2009 it was 0.8 cm. Incidental finding, large thyroid goiter causing impingement on trachea and esophagus at the cervicothoracic junction the vast majority of monotypic B cells express CD38 next CLL panel, FISH showed positive for deletion of TP53 (unfavorable prognosis and chemotherapy resistance) And IGHV status shows non-mutation e.g. poor prognostic features Quantitative immunoglobulins checked on 11/04/2016 showed IgG 1100 normal being 700-1600 IgM 53 normal being 40-230 IgA 150 normal being 70-400 Beta-2 microglobulin 0.230 normal being 0.109 -0.253 CT scan of chest abdomen pelvis done on 11/25/2016 showed bilateral lower lobe parenchymal scarring with bilateral lower lobe bronchiectasis segment similar to 06/07/2009. Thyroid goiter with tracheal and esophageal impingements at cervicothoracic junction. Nonspecific right hilar lymph nodes no enlarged or pathological lymphadenopathy seen. Mild iliac region lymph nodes enlargements since 06/07/2009 Size about 1.3 cm. mild splenomegaly Repeat sonogram of abdomen On 12/20/2017 shows mild splenomegaly now 12.9 cm compared to 13.2 cm on 03/02/2017 On 02/09/2018 patient was evaluated by Dr. Alvarenga sewing supervisor at [facility] and his labs done there showed white blood count 198.7 hemoglobin 13.4 hematocrit 34.4 platelets 188,000 IgA 100, IgM 43, IgG 889, SPEP no monoclonal peak, serum light chains showed kappa 2.44, lambda 2.9, kappa/lambda ratio 0.84 which was normal. And his recommendations were serial CT scan of chest abdomen pelvis once a year or sooner if needed. And continue to monitor CBC unless white blood count more than 200,000 as it may be associated with hyperviscosity and treatment options if decided to treat his recommendation was short course of bendamustine/Rituxan up to 4 cycles to achieve an initial response followed by ibrutinib maintenance. CT scan of chest abdomen pelvis done on 04/25/2018 showed very mild progression in the size and number of axillary, just tunnel, hilar and pelvic lymphadenopathy since 11/25/2016 Mild increase in size of spleen since 11/25/2016, now 14.8 cm compared to 13.4 before. Severe prostrate gland enlargement Plan: Discussed with patient regarding his labs white blood count 234.8, compared to 302.8 thousand on July 21, 2019 , hemoglobin 12.7, hematocrit 45 platelets 146,000 CMP within normal limits LDH 231And abdominal sonogram done on May 19, 2019 which showed spleen is enlarged measuring 16.6 cm, right kidney very mild dilatation of right renal pelvis, no mass seen Clinically, patient is doing well since he is off ibrutinib, no more episode of palpitation, cardiac work-up is in progress. At this point we will consider treating him with bendamustine/Rituxan as recommended by Dr. Alvarenga, lymphoma expert at [facility] plan to give him bendamustine 90 mg/m??? on day 1 and 2 along with Rituxan 375 mg/m??? on day 1 and repeat cycle every 28 days x 4 cycles, all the side effects possible benefits including but not limited to allergic reaction, bone marrow suppression, which can increase risk for infections, tumor lysis syndrome, nausea vomiting, further teaching was done by chemotherapy nurse. And will obtain approval from his insurance prior to the treatment. And also consider allopurinol and hydration and monitor his electrolytes to prevent or manage tumor lysis.. His hepatitis profile was checked prior to ibrutinib therapy, it was negative. In the meantime patient was advised to maintain good hydration avoid sun exposure and also consider Port-A-Cath placement. Patient return to clinic 1 week after bendamustine/Rituxan therapy with CBC CMP Signed By: Rosanne Plaza M.D. <<Signature on File>>
== END 2019-09-05 23:59 | disposition home or self-care (01) ==
LOC: ONCMED 06:52
PROVIDERS: PCP Nurse Practitioner; Visit Provider Internal Medicine Hematology & Oncology
DX: C91.90 Lymphoid leukemia, unspecified not having achieved remission (principal); D72.820 Lymphocytosis (symptomatic); N40.0 Benign prostatic hyperplasia without lower urinary tract symptoms; E78.5 Hyperlipidemia, unspecified; G47.33 Obstructive sleep apnea (adult) (pediatric); M81.0 Age-related osteoporosis without current pathological fracture; E11.22 Type 2 diabetes mellitus with diabetic chronic kidney disease; N18.9 Chronic kidney disease, unspecified
CPT/HCPCS: 99214

== ENCOUNTER 2019-08-28 14:36 | Outpatient (CLI) | payer MEDICARE, OTHER, SELFPAY ==
--- NOTE | 2019-08-28 14:45 | USCV_ITS ---
Lb Garcia Age: 68 Gender: M : 1950 Exam Date: 08/28/2019 15:07 Ordering Phys: Suyapa Murillo MD ([email or web address]) Technologist: Jeanie Dugan [place] [facility] [place]: HIGH RISK MEDS BP: 132 / 67 HR: 68 Rhythm: Sinus Technical Quality: Adequate MEASUREMENTS (Male / Female) Normal Values 2D ECHO LV Diastolic Diameter PLAX 5.4 cm 4.2 - 5.9 / 3.9 - 5.3 cm LV Systolic Diameter PLAX 4.4 cm LV Chamber Size 4.1 cm IVS Diastolic Thickness 0.7 cm 0.6 - 1.0 / 0.6 - 0.9 cm IVS Systolic Thickness 1.2 cm LVPW Diastolic Thickness 1.8 cm 0.6 - 1.0 / 0.6 - 0.9 cm LVPW Systolic Thickness 2.0 cm RV Chamber Size 3.1 cm LVOT Diameter 2.0 cm LV Ejection Fraction 2D Teich 38.5 % LV Ejection Fraction MOD 2C 52.2 % LV Ejection Fraction 2C AL 52.8 % LA Diameter 4.4 cm LA Width 3.8 cm LA Height 5.9 cm RA Width 2.6 cm RA Height 5.5 cm Aorta at Sinotubular Diameter 2.6 cm M-MODE LV Diastolic Diameter MM 7.3 cm 4.2 - 5.9 / 3.9 - 5.3 cm LV Systolic Diameter MM 5.8 cm LV Ejection Fraction MM Teich 40.5 % IVS Diastolic Thickness MM 1.1 cm 0.6 - 1.0 / 0.6 - 0.9 cm IVS Systolic Thickness MM 1.0 cm LVPW Diastolic Thickness MM 1.1 cm 0.6 - 1.0 / 0.6 - 0.9 cm LVPW Systolic Thickness MM 1.3 cm Aortic Annulus Diameter 4.4 cm LA Ao Ratio MM 1.0 MV E Point Septal Separation 1.1 cm DOPPLER AV Peak Velocity 173.0 cm/s LVOT Peak Velocity 126.0 cm/s AV Area Cont Eq vti 2.0 cm squared AV Area Cont Eq pk 2.4 cm squared MV Area PHT 2.6 cm squared Mitral E to A Ratio 0.8 MV E' Velocity 10.0 cm/s Mitral E to MV E' Ratio 8.3 Mitral E to LV E' Lateral Ratio 7.1 Mitral E to LV E' Septal Ratio 10.1 TR Peak Velocity 279.0 cm/s TR Peak Gradient 31.0 mmHg TV Peak E Velocity 63.0 cm/s Right Atrial Pressure 3.0 mmHg Pulmonary Artery Systolic Pressu 34.1 mmHg PV Peak Velocity 99.0 cm/s RV Acceleration Time 0.2 s RV Ejection Time 0.5 s RV AcT/ET 0.3 FINDINGS Left Ventricle Normal left ventricular size and systolic function, EF 60 %. No regional wall motion abnormalities. Grade I/IV diastolic dysfunction (abnormal relaxation filling pattern), normal to mildly elevated filling pressures. Right Ventricle Normal right ventricular size and systolic function. Right Atrium Normal right atrial size. Left Atrium Mildly increased left atrial size. Mitral Valve Trace mitral valve regurgitation. Aortic Valve No gross abnormalities noted Tricuspid Valve No gross abnormalities noted Pulmonic Valve Trace pulmonary valve regurgitation. Pericardium No pericardial effusion. Aorta Normal aortic annulus size. CONCLUSIONS Normal left ventricular size and systolic function, EF 60 %. No regional wall motion abnormalities. Grade I/IV diastolic dysfunction (abnormal relaxation filling pattern), normal to mildly elevated filling pressures. Mildly increased left atrial size. Trace mitral valve regurgitation. Trace pulmonary valve regurgitation. Estimated pulmonary artery peak systolic pressure of 34 mmHg There is no pericardial effusion. There are no intracardiac masses. There are no prior echocardiogram studies to compare. Dr Suyapa Murillo MD [facility] (Electronically Signed) Final Date: 28 August 2019 19:04 S
== END 2019-08-28 14:37 | disposition home or self-care (01) ==
LOC: RAD 14:39
PROVIDERS: PCP Nurse Practitioner; Visit Provider Internal Medicine Cardiovascular Disease
DX: Z79.899 Other long term (current) drug therapy (principal); I51.81 Takotsubo syndrome; I34.0 Nonrheumatic mitral (valve) insufficiency; I37.1 Nonrheumatic pulmonary valve insufficiency
CPT/HCPCS: 93306

== ENCOUNTER → 2019-09-05 08:10 | Outpatient (BNVA) | payer MEDICARE, OTHER, SELFPAY | PROVIDERS: PCP Nurse Practitioner; Visit Provider Internal Medicine Medical Oncology | DX: E11.9 Type 2 diabetes mellitus without complications (principal); I10 Essential (primary) hypertension; E78.5 Hyperlipidemia, unspecified; C91.90 Lymphoid leukemia, unspecified not having achieved remission; D72.820 Lymphocytosis (symptomatic); Z11.59 Encounter for screening for other viral diseases | CPT/HCPCS: 80053; 80061; 83036; 86704; 87340 ==

== ENCOUNTER 2019-09-21 06:45 | Outpatient (RCR) | payer MEDICARE, OTHER, SELFPAY ==
[2019-09-13 10:16] LABS: Basophils # 0.1 10^3/uL (0.0-0.1); Eosinophils # 0.2 10^3/uL (0.0-0.8); Eosinophils % 0.2 %; Hematocrit 43.3 % (42.0-52.0); Hemoglobin 13.1 g/dL (11.7-16.6); Lymphocytes % 94.1 %; Mean Corpuscular HGB Conc 30.3 g/dL (30.0-36.0); Mean Corpuscular Hemoglobin 29.8 pg (28.0-34.0); Mean Corpuscular Volume 98.4 fL (80-94); Monocytes # 3.4 10^3/uL (0.2-0.9); Monocytes % 2.7 %; Neutrophils # 3.8 10^3/uL (1.8-7.7); Neutrophils % 2.9 %; Nucleated Red Blood Cells % 0 %; Platelet Count 145 10^3/cmm (130-400)
[2019-09-13 11:02] LABS: Lymphocytes # 121.5 10^3/uL (0.8-4.8); Slide Review Slide Review Perform; White Blood Count 129.1 10^3/uL (4.0-10.0)
[2019-09-13] MEDS: acetaminophen 325 mg Tablet 650 MG PO (12:20)
[2019-09-13] MEDS: sodium chloride 0.9% 500 ML 75 ML IV (12:26)
[2019-09-13] MEDS: meperidine 50 mg/mL INJ IV (14:52)
--- NOTE | 2019-09-13 17:30 | ONC FU_ITS ---
Dr. Plaza follow up note Patient: Lb Garcia Unit #: [id number]: 1950 Dicatated By: Rosanne Plaza M.D.Date of Visit:Sep 13, 2019 Onc Med Follow-up/Prog Note History of Present Illness: Mr. Lb Garcia, 68-year-old male with a history of low-grade fever since February 2016 , now with night sweats and recently diagnosed with pneumonia , on 10/06/2016 his CBC showed white blood count 32.1 k , hemoglobin 14.4 hematocrit 45 platelets 170,000 differential shows lymphocytes 83.2% neutrophil 13.7% absolute lymphocytes count was 26,700 His repeat CBC on 10/28/2016 showed white blood count 33,700 hemoglobin 14.1 crit 41.9 platelets 193k, differential shows lymphocytes 78.5% neutrophil 18% absolute lymphocyte count 26,400 CBC from 03/17/2016 showed white blood count 12.5 hemoglobin 15.8 hematocrit 47.7 platelets 193,000 differential showed lymphocytes 58.2% neutrophil 37.6% absolute lymphocyte count was 7300 Patient said he has sleep apnea for which he uses CPAP machine at recently he would feel congested in his sinuses and also had urine tract infection off and on CT scan of chest abdomen pelvis done on 04/25/[address] scan of chest abdomen pelvis done on 11/25/2016 showed very mild progression in size and number of axillary, mediastinal, hilar and pelvic adenopathy Mild increase in size of spleen now 14.8 cm compared to 13.4 cm on 11/25/2016 .CT scan of chest abdomen pelvis done on 01/05/2019 showed stable bilateral axillary, mediastinal, right hilar lymphadenopathy no progression Splenomegaly, marginally increased from 04/25/2018 Progressive pelvic lymphadenopathy e.g. lymph node increase from 1.1-1.5 cm or 1.3 to 1.7 cm in left external iliac. And left internal iliac measures 1.8 compared to 1.4 cm earlier.Enlarged prostate f/u CT scan of chest abdomen pelvis done on 05/19/2019 showed axillary, mediastinal and hilar lymph nodes are indeterminate within no interval change the largest lymph node at right hilum is 14 mm Pelvic lymphadenopathy without significant progression in size or number since 01/05/2019. There are numerous enlarged lymph nodes. Some measures slightly smaller in size other slightly larger in size which is a probably due to technical variation Largest lymph node is 19 mm in the left obturator region. Markedly enlarged prostate gland next Splenomegaly stable at 16.5 cm in length. Cholelithiasis, Started on ibrutinib 420 mg by mouth daily along with allopurinol on 06/02/2019, On August 03, 2019, patient called the office regarding off and on episode of palpitations and sometime it last for long time, patient was advised to discontinue ibrutinib immediately, which he did on August 03, 2019 and as per patient he had another episode which lasted for a few minutes after that and since then no more palpitations. Patient was referred to cardiology Came for follow-up, denies any specific complaints, no more episode of palpitations since ibrutinib was discontinued except one episode which lasted for a few minutes., Patient has seen cardiology and now work-up is in progress and now has portable panel monitor on. No night sweats, no weight loss, no recurrent fever. But persistent peripheral lymphadenopathy involving neck and bilateral axilla and inguinal area. No headaches, no blurred vision or double vision, no fever or chills, no abdominal fullness. And underwent echocardiogram done on August 28, 2019 which showed normal left ventricle size and systolic function ejection fraction 60% trace mitral valve regurgitation. Patient also had portable cardiac monitoring for 15 days, results is not available yet. Came for follow-up, denies any specific complaint today, no night sweats, no fever chills, no weight loss, no progressive peripheral lymphadenopathy, no abdominal distention.No palpitation or tachycardia no chest pain . Medications: AmLODIPine Besylate 1 Tablet (of 10 mg) Oral daily, Finasteride 1 Tablet (of 5 mg) Oral daily, Lisinopril 1 Tablet (of 20 mg) Oral daily, Lisinopril 1 Tablet (of 20 mg) Oral b.i.d., Lovastatin ER 1 Tablet (of 40 mg) Tablet SR 24 HR Oral daily Allergies: No Known Allergies. Review of Systems: Constitutional - Appetite is good and weight is slowly increasing. No fever, chills, hot flashes, or night sweats. Energy level is [id number], ENMT - No sinus congestion/drainage. No mouth sores. No sore throat or difficulty swallowing, Hematologic/Lymphatic - No abnormal bruising or bleeding, Respiratory - No shortness of breath. No cough. No pleuritic pain or hemoptysis, Cardiovascular - No angina pain. No palpitations, Gastrointestinal - No nausea or vomiting. No heartburn or acid reflux. No diarrhea or constipation. No blood in the stool or black stools, Genitourinary (M) - No dysuria. Positive for hematuria. No urinary frequency. No urgency or incontinence, Musculoskeletal - No joint or bone pain, Neurologic - No headache or dizziness. No numbness/paresthesias or other focal neurologic symptoms, Psychiatric - No anxiety or depression. No insomnia. Vital Signs: Performed on Sep 13, 2019 11:31 Height - 69.50 in Weight - 220.4 lbs (LOW) BSA - 2.16 sq.m BMI - 32.08 (HIGH) Performed on Sep 13, 2019 09:46 Height - 69.50 in Temperature - 98.3 F (LOW) Pulse - 72 /min Respiration - 18 /min BP - 145/77 mm(hg) (HIGH) O2 Sat - 93 % (LOW) Pain - 0 Performance Status: 0 - Fully active, able to carry on all predisease activities without restrictions. (ECOG) Physical Examination: ENMT - No mouth sores, no thrush, no jaundice, Respiratory - Lungs are clear, Cardiovascular - Regular rate and rhythm of heart, Abdomen - Soft, bowel sounds present, no tenderness or organomegaly, Extremities - No visible edema or rash. Lab/Imaging: Test performed on Aug 17, 2019 09:50 LDH (Total) 231 U/L Sodium 143 mmol/L Potassium 4.3 mmol/L Chloride 100 mmol/L CO2 30 mmol/L Anion Gap 17.3 BUN 12 mg/dL Creatinine 1.0 mg/dL Cr Clearance (Est) 102.24 mL/min eGFR 74.3 mL/min Glucose 122 mg/dL Calcium 9.9 mg/dL Protein, Total 7.8 g/dL Albumin 4.9 g/dL Globulin 2.9 g/dL Bilirubin, Total 0.5 mg/dL ALT (SGPT) 14 U/L AST (SGOT) 18 U/L Alkaline Phosphatase 92 IU/L WBC 234.8 10 3/uL RBC 4.36 10 6/uL HGB 12.7 g/dL HCT 45.0 % MCV 103.2 fL MCH 29.1 pg MCHC 28.2 g/dL RDW 15.2 % Platelet Count 146 10 3/cmm MPV 10.8 fL Neutrophils 4.1 10 3/uL Lymphocytes 228.2 10 3/uL Monocytes 2.1 10 3/uL Eosinophils 0.2 10 3/uL Basophils 0.0 10 3/uL Neutrophil % 1.7 % Lymphocyte % 97.2 % Monocyte % 0.9 % Eosinophil % 0.1 % Basophils % 0.0 % NRBC % 0 % CBC Slide Review Slide Review Perform SLIDE REVIEW AGREES WITH AUTOMATED RESULTS ST Test performed on Jul 05, 2019 13:45 Manual Lymphs % 95 % Smudge Cells 2+ Anisocytosis 1+ Macrocytosis 1+ Test performed on Jun 09, 2019 16:20 Phosphorus 3.9 mg/dL Uric Acid 4.3 mg/dL Atypical Lymphs % 7.0 % Manual Lymphocytes Abs 210.8 10 3/cmm Test performed on May 24, 2019 10:50 Hemoglobin A1C % 6.2 % 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 Discussed with patient regarding his CT scan finding and lab workup. His white blood count is elevated due to lymphocytosis at 48.7 with a normal hemoglobin and hematocrit as well as platelets No evidence of peripheral lymphadenopathy or central lymphadenopathy except mild lymphadenopathy in pelvis maximum size 1.3 [address] scan of pelvis on 06/07/2009 it was 0.8 cm. Incidental finding, large thyroid goiter causing impingement on trachea and esophagus at the cervicothoracic junction the vast majority of monotypic B cells express CD38 next CLL panel, FISH showed positive for deletion of TP53 (unfavorable prognosis and chemotherapy resistance) And IGHV status shows non-mutation e.g. poor prognostic features Quantitative immunoglobulins checked on 11/04/2016 showed IgG 1100 normal being 700-1600 IgM 53 normal being 40-230 IgA 150 normal being 70-400 Beta-2 microglobulin 0.230 normal being 0.109 -0.253 CT scan of chest abdomen pelvis done on 11/25/2016 showed bilateral lower lobe parenchymal scarring with bilateral lower lobe bronchiectasis segment similar to 06/07/2009. Thyroid goiter with tracheal and esophageal impingements at cervicothoracic junction. Nonspecific right hilar lymph nodes no enlarged or pathological lymphadenopathy seen. Mild iliac region lymph nodes enlargements since 06/07/2009 Size about 1.3 cm. mild splenomegaly Repeat sonogram of abdomen On 12/20/2017 shows mild splenomegaly now 12.9 cm compared to 13.2 cm on 03/02/2017 On 02/09/2018 patient was evaluated by Dr. Alvarenga geophysics scientist at [facility] and his labs done there showed white blood count 198.7 hemoglobin 13.4 hematocrit 34.4 platelets 188,000 IgA 100, IgM 43, IgG 889, SPEP no monoclonal peak, serum light chains showed kappa 2.44, lambda 2.9, kappa/lambda ratio 0.84 which was normal. And his recommendations were serial CT scan of chest abdomen pelvis once a year or sooner if needed. And continue to monitor CBC unless white blood count more than 200,000 as it may be associated with hyperviscosity and treatment options if decided to treat his recommendation was short course of bendamustine/Rituxan up to 4 cycles to achieve an initial response followed by ibrutinib maintenance. CT scan of chest abdomen pelvis done on 04/25/2018 showed very mild progression in the size and number of axillary, just tunnel, hilar and pelvic lymphadenopathy since 11/25/2016 Mild increase in size of spleen since 11/25/2016, now 14.8 cm compared to 13.4 before. Severe prostrate gland enlargement Plan: Discussed with patient regarding his labs white blood count 129.1 thousand compared to 234.8 thousand on August 17, 2019 hemoglobin 13.1 hematocrit 43.3 platelets 145,000 CMP within normal limits, potassium is pending Clinically, patient is doing well, no B symptoms,, no palpitation or tachycardia since he is off ibrutinib. Now being considered for systemic therapy with bendamustine/Rituxan, at this point we will proceed with first cycle of bendamustine/Rituxan today and then he will return to clinic in the morning for day 2 and then in 2 weeks with CBC CMP and LDH. Patient was advised in case there is palpitation or tachycardia, he need to go to hospital immediately. He was also advised to maintain good hydration. And continue with allopurinol Signed By: Rosanne Plaza M.D. <<Signature on File>>
[2019-09-14] MEDS: sodium chloride 0.9% 250 ML 999 ML IV (10:18)
[2019-09-21 11:59] LABS: Hematocrit 42.9 % (42.0-52.0); Hemoglobin 12.7 g/dL (11.7-16.6); Mean Corpuscular HGB Conc 29.6 g/dL (30.0-36.0); Mean Corpuscular Hemoglobin 29.4 pg (28.0-34.0); Mean Corpuscular Volume 99.3 fL (80-94); Mean Platelet Volume 10.8 fL (7.4-10.4); Nucleated Red Blood Cells % 0 %; Platelet Count 154 10^3/cmm (130-400); Red Blood Count 4.32 10^6/uL (4.1-5.3); Red Cell Distribution Width 14.1 % (12.1-15.1)
[2019-09-21 12:11] LABS: Alanine Aminotransferase 14 U/L (0-41); Albumin Level 4.6 g/dL (3.5-5.2); Alkaline Phosphatase 79 IU/L (40-130); Aspartate Amino Transferase 18 U/L (0-40); Blood Urea Nitrogen 16 mg/dL (8-23); Calcium 9.2 mg/dL (8.5-10.5); Carbon Dioxide 30 mmol/L (22-29); Chloride 101 mmol/L (98-107); Globulin 2.2 g/dL (1.3-4.6); Glomerular Filtration Rate 66.6 mL/min (90-130); Glucose 95 mg/dL (65-115); Osmolality Calculated 284 mOsm/kg (285-295); Sodium 139 mmol/L (136-145); Total Bilirubin 0.3 mg/dL (0.15-1.2); Total Protein 6.8 g/dL (6.6-8.7)
[2019-09-21 12:26] LABS: Anion Gap 12.3 (5-19)
[2019-09-21 12:27] LABS: Potassium 4.3 mmol/L (3.5-5.1)
[2019-09-21 12:50] LABS: Slide Review Slide Review Perform; White Blood Count 95.6 10^3/uL (4.0-10.0)
[2019-09-21 12:51] LABS: Absolute Segmented Neutrophil 2.9 10/cmm (1.6-7.1); Segmented Neutrophils 3 %; Total Cells Counted 100 (0-100)
[2019-09-21 12:52] LABS: Lymphocytes 96 %
[2019-09-21 12:53] LABS: Platelet Estimate Normal (Normal)
--- NOTE | 2019-09-25 15:51 | ONC FU_ITS ---
[facility] Patient Note Patient: Lb Garcia Unit #: [id number]: 1950 Dictated By: Luis Angel JolleyDate of Visit: Sep 21, 2019 Onc MED Follow-Up/Prog Note Chief Complaint: elevated white blood cell CLL History of Present Illness: Mr. Garcia is a 60-year-old gentleman with a past history of elevated white blood count. He reports that he had been having low-grade fever since February 2016. He presented initially with night sweats and was diagnosed with pneumonia. His white blood count on October 06, 2016 was reported at 32,000. His hemoglobin was 14.4 platelets 170,000 and his differential reported lymphocytes of 83.2% neutrophils 13.7% absolute lymphocyte count was 26,700. Follow-up CBC on 10/28/2016 reported a white count of 33,700 and differential showed lymphocytes and 78.5%. He remained on observation. F CT of the chest abdomen pelvis on 04/25/2018 and when compared with a CT scan of chest abdomen pelvis from 11/25/2016 there was very mild progression in size and number of axillary, mediastinal and hilar as well as pelvic adenopathy. The spleen size is 14.8 cm compared to 13.4 cm on 11/25/2016. Follow-up CT of the chest abdomen pelvis on 01/05/2019 reported stable bilateral axillary, mediastinal, right hilar lymphadenopathy with no evidence of progression. The splenomegaly he had marginally increased from 04/25/2018. Was noted that he had progressive pelvic lymphadenopathy with a lymph node increased from 1.1 to 1.5 cm and 1.3 to 1.7 cm in the left external iliac. The left internal iliac measured 1.8 compared to 1.4 cm. It was noted that he had a large prostate as well. He did have follow-up repeat CT scan of the chest abdomen pelvis on May 19, 2019 which showed axillary, mediastinal and hilar lymph nodes which were indeterminate with no interval change. The largest lymph node measured at the right hilum was 14 mm. The pelvic lymphadenopathy was without significant progression in size or number since January 05, 2019. There were numerous enlarged lymph nodes. Some measures slightly smaller in size other slightly larger in size which was felt to be due to technical variation. The largest lymph node was measured at 19 mm in the left ureter region. He had markedly enlarged prostate gland. This splenomegaly was at 16.5 cm. It was noted that he had cholelithiasis. Mr. Garcia was started on ibrutinib 420 mg daily along with allopurinol on June 02, 2019. Unfortunately the ibrutinib was discontinued on August 03, 2019 at which time he had called reporting episodes of palpitations lasting for a long time . The ibrutinib was stopped and he was referred to cardiology. He had no further palpitations after stopping the ibrutinib. Mr. Garcia was here for follow-up with Dr. Plaza on September 13, 2019. He was having no significant symptoms but had persistent peripheral lymphadenopathy involving the neck and bilateral axilla and inguinal area. He had no headaches vision changes fever or chills. He had no night sweats or weight loss or any recurrent fever at that time. Had any abdominal fullness as well. He did have follow-up echocardiogram on August 28, 2019 which reported a left ventricular size and systolic ejection fraction of 60%. There was trace mitral valve regurgitation. He did have cardiac monitoring for 15 days he had had any report preliminary report per [employer] access reported baseline rhythm was found to be normal sinus with a rate of 61 bpm there was one episode of atrial fibrillation with rapid ventricular rate of 110 lasting for 2 minutes. He is followed with Dr. Murillo regarding the monitor. White count on the September 13, 2019 visit was noted to be 1 29,000. Previously on August 16 it was 10 35,000 and on May 21, [address] was [address] Dr. Plaza is recommended that he pursue systemic therapy with bendamustine Rituxan. He began his first cycle on September 13, 2019. Jose is here today for day follow-up. He states overall he feels really good. He has had no problems since his discharge from receiving the chemotherapy as an outpatient. He states he did have some slight infusion reaction the day of Rituxan but has had no further problems. He describes the reaction as tremor/shakes. It was relieved with the medications they gave me there . The other concerns. He denies any nausea or vomiting. He said no diarrhea or constipation. He denies any fever or chills. He states his appetite is good. He has had no mouth sores, sore throat or difficulty swallowing. He denies any pain. 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 His ECOG is 1. . Past Medical History: Benign prostatic hypertorphy Chronic kidney disease Diabetes type II Dyslipidemia Obstructive Sleep Apnea Osteoporosis Past Surgical History: Mr. Garcia's surgical history is unremarkable. Allergies: No Known Allergies. Medications: AmLODIPine Besylate 1 Tablet (of 10 mg) Oral daily Finasteride 1 Tablet (of 5 mg) Oral daily Lisinopril 1 Tablet (of 20 mg) Oral daily Lovastatin ER 1 Tablet (of 40 mg) Tablet SR 24 HR Oral daily Family History: Mr. Garcia's mother at age 82: heart failure. Mr. Garcia's father at age 82: lung cancer. Social History: Mr. Garcia is and he is retired. Mr. Garcia quit smoking 23 years ago but had smoked 1.0 pack/day for 25 years. He has no history of drinking. Mr. Garcia reports the following support systems: lives with spouse, significant other, family, or friends, lives in own house, supportive family/friends willing to assist with needs, and adequate transportation available for expected visits. His diet consists of regular meals. He indicates his activity level as: daily activities. Review Of Symptoms: Constitutional Denies fevers, chills, night sweats, excessive fatigue or weight loss. Allergic/Immunologic No reactions. Eyes Denies significant visual changes. No diplopia. No amaurosis. ENMT Denies changes in hearing, sore throat, mouth sores, difficulty or changes in swallowing ability, and/or sinus drainage. Hematologic/Lymphatic Denies easy bruising or bleeding. The patient denies any tender or palpable lymph nodes. Respiratory Denies dyspnea on exertion, chest pain, cough or hemoptysis. Denies orthopnea. Cardiovascular Denies anginal chest pain, palpitations or orthopnea. Gastrointestinal Denies nausea, vomiting, diarrhea, GI bleeding, or constipation. Denies change in bowel habits and/or stool color, no heartburn or early satiety. Genitourinary (M) Denies hematuria, dysuria, increased frequency, urgency, hesitancy or incontinence. Musculoskeletal Denies joint pain, swelling or redness. No decreased range of motion. Integumentary Denies chronic rashes, inflammation, ulcerations or skin changes. Neurologic Denies headache, blurred vision, and no areas of focal weakness or numbness. Normal gait. No sensory problems. Psychiatric Denies insomnia, depression, ambrosio or mood swings. Vital Signs: Performed on Sep 21, 2019 14:19 Height - 69.50 in Weight - 223 lbs (HIGH) BSA - 2.17 sq.m BMI - 32.46 (HIGH) Temperature - 98.1 F (LOW) Pulse - 70 /min Respiration - 16 /min BP - 136/65 mm(hg) O2 Sat - 95 % (LOW) Pain - 0,0 - Fully active, able to carry on all predisease activities without restrictions. (ECOG) Physical Examination: Constitutional Alert, oriented, no acute distress. Skin pink, warm and dry. Head Normocephalic; atraumatic. Eyes Conjunctivae and sclerae are clear and without icterus. Pupils are reactive and equal. Neck Supple without masses or thyromegaly. No jugular venous distension. Hematologic/Lymphatic No petechiae or purpura. No tender or palpable lymph nodes in the cervical or supraclavicular areas. Respiratory Lungs are clear to auscultation without rhonchi or wheezing. Cardiovascular Regular rate and rhythm of heart without murmurs,clicks, gallops or rubs. Back/Spine Non-tender to palpation. Extremities No visible deformities, no cyanosis, clubbing or edema. Musculoskeletal No tenderness or swelling, normal range of motion without obvious weakness. Integumentary No rashes or lesions. Neurologic No sensory or motor deficits, normal cerebellar function, normal gait. Psychiatric Alert and oriented times three. Coherent speech. Verbalizes understanding of our discussions today. Laboratory:Test performed on Sep 21, 2019 11:40 Sodium 139 mmol/L Potassium 4.3 mmol/L Chloride 101 mmol/L CO2 30 mmol/L Anion Gap 12.3 BUN 16 mg/dL Creatinine 1.1 mg/dL Cr Clearance (Est) 92.9500 mL/min eGFR 66.6 mL/min Glucose 95 mg/dL Calcium 9.2 mg/dL Protein, Total 6.8 g/dL Albumin 4.6 g/dL Globulin 2.2 g/dL Bilirubin, Total 0.3 mg/dL ALT (SGPT) 14 U/L AST (SGOT) 18 U/L Alkaline Phosphatase 79 IU/L WBC 95.6 10 3/uL RBC 4.32 10 6/uL HGB 12.7 g/dL Manual Lymphs % 96 % HCT 42.9 % Manual Monos % 1.0 % MCV 99.3 fL MCH 29.4 pg MCHC 29.6 g/dL RDW 14.1 % Platelet Count 154 10 3/cmm MPV 10.8 fL NRBC % 0 % CBC Slide Review Slide Review Perform Manual Bands Abs 0.0 10 3/cmm Manual Monocytes Abs 1.0 10 3/cmm Test performed on Aug 17, 2019 09:50 LDH (Total) 231 U/L Neutrophils 4.1 10 3/uL Lymphocytes 228.2 10 3/uL Monocytes 2.1 10 3/uL Eosinophils 0.2 10 3/uL Basophils 0.0 10 3/uL Neutrophil % 1.7 % Lymphocyte % 97.2 % Monocyte % 0.9 % Eosinophil % 0.1 % Basophils % 0.0 % Test performed on Jul 05, 2019 13:45 Smudge Cells 2+ Anisocytosis 1+ Macrocytosis 1+ Test performed on Jun 09, 2019 16:20 Phosphorus 3.9 mg/dL Uric Acid 4.3 mg/dL Atypical Lymphs % 7.0 % Manual Lymphocytes Abs 210.8 10 3/cmm Test performed on May 24, 2019 10:50 Hemoglobin A1C % 6.2 % Impression: 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 Discussed with patient regarding his CT scan finding and lab workup. His white blood count is elevated due to lymphocytosis at 48.7 with a normal hemoglobin and hematocrit as well as platelets No evidence of peripheral lymphadenopathy or central lymphadenopathy except mild lymphadenopathy in pelvis maximum size 1.3 [address] compared with [address] scan of pelvis on 06/07/2009 it was 0.8 cm. Incidental finding, large thyroid goiter causing impingement on trachea and esophagus at the cervicothoracic junction the vast majority of monotypic B cells express CD38 next CLL panel, FISH showed positive for deletion of TP53 (unfavorable prognosis and chemotherapy resistance) And IGHV status shows non-mutation e.g. poor prognostic features Quantitative immunoglobulins checked on 11/04/2016 showed IgG 1100 normal being 700-1600 IgM 53 normal being 40-230 IgA 150 normal being 70-400 Beta-2 microglobulin 0.230 normal being 0.109 -0.253 CT scan of chest abdomen pelvis done on 11/25/2016 showed bilateral lower lobe parenchymal scarring with bilateral lower lobe bronchiectasis segment similar to 06/07/2009. Thyroid goiter with tracheal and esophageal impingements at cervicothoracic junction. Nonspecific right hilar lymph nodes no enlarged or pathological lymphadenopathy seen. Mild iliac region lymph nodes enlargements since 06/07/2009 Size about 1.3 cm. mild splenomegaly Repeat sonogram of abdomen On 12/20/2017 shows mild splenomegaly now 12.9 cm compared to 13.2 cm on 03/02/2017 On 02/09/2018 patient was evaluated by Dr. Alvarenga forms examiner at [facility] and his labs done there showed white blood count 198.7 hemoglobin 13.4 hematocrit 34.4 platelets 188,000 IgA 100, IgM 43, IgG 889, SPEP no monoclonal peak, serum light chains showed kappa 2.44, lambda 2.9, kappa/lambda ratio 0.84 which was normal. And his recommendations were serial CT scan of chest abdomen pelvis once a year or sooner if needed. And continue to monitor CBC unless white blood count more than 200,000 as it may be associated with hyperviscosity and treatment options if decided to treat his recommendation was short course of bendamustine/Rituxan up to 4 cycles to achieve an initial response followed by ibrutinib maintenance. CT scan of chest abdomen pelvis done on 04/25/2018 showed very mild progression in the size and number of axillary, just tunnel, hilar and pelvic lymphadenopathy since 11/25/2016 Mild increase in size of spleen since 11/25/2016, now 14.8 cm compared to 13.4 before. Severe prostate gland enlargement Mr Garcia has been advised to pursue treatment with bendamustine and bendamustine. He began his first cycle on September 13, 2019. He is tolerated it well thus far. Plan: 1. Continue with current cycle of Rituxan/bendamustine. This is day 8. 2. Antiemetics at home per Compazine Lorazepam as needed. Continue same antiemetics pretreatment as it worked well. 3. Labs from today were reviewed in detail and discussed with Mr. Garcia and a copy was given to him. WBC 95.6, hemoglobin 12.7 platelets 154,000. Creatinine is 1.1 LFTs are normal random glucose was 95 4. He reported some burning with administration of the bendamustine but states he was in such a hurry he wanted to get out of here so he did not say much about the burning. He has had no skin changes or irritation thus far. It was recommended that he had port placement for this treatment but as he was only getting 4 cycles he opted not to pursue the port placement at this time. He states he does not want to have to undergo any more anesthesia than absolutely necessary. 5. We will plan to see him back in 2 weeks with CBC CMP LDH at which time he will be due for cycle 2 Rituxan bendamustine. 6. Mr. Garcia was instructed to contact us in the interim should questions or problems arise. Signed By: Luis Angel Jolley-, BEATRIZ Plaza MD <<Signature on File>>
== END 2019-10-06 23:59 | disposition home or self-care (01) ==
LOC: ONCMED 06:45
PROVIDERS: Internal Medicine Hematology & Oncology; PCP Nurse Practitioner; Visit Provider Nurse Practitioner
DX: Z51.12 Encounter for antineoplastic immunotherapy (principal); Z51.11 Encounter for antineoplastic chemotherapy; C91.10 Chronic lymphocytic leukemia of B-cell type not having achieved remission; G47.33 Obstructive sleep apnea (adult) (pediatric); N40.0 Benign prostatic hyperplasia without lower urinary tract symptoms; K80.20 Calculus of gallbladder without cholecystitis without obstruction; E04.9 Nontoxic goiter, unspecified; R16.1 Splenomegaly, not elsewhere classified; E11.22 Type 2 diabetes mellitus with diabetic chronic kidney disease; N18.9 Chronic kidney disease, unspecified; E78.5 Hyperlipidemia, unspecified; M81.0 Age-related osteoporosis without current pathological fracture; Z79.899 Other long term (current) drug therapy; Z87.440 Personal history of urinary (tract) infections; Z87.891 Personal history of nicotine dependence
CPT/HCPCS: 80053; 85007; 85025; 96367; 96375; 96413; 96415; 96417; 99214; J1100; J1200; J2175; J2405; J2469; J7040; J7050; J9034; J9312

== ENCOUNTER → 2019-09-26 08:36 | Outpatient (BNVA) | payer MEDICARE, OTHER, SELFPAY | PROVIDERS: PCP Nurse Practitioner; Visit Provider Internal Medicine Medical Oncology | DX: C91.10 Chronic lymphocytic leukemia of B-cell type not having achieved remission (principal); Z79.899 Other long term (current) drug therapy | CPT/HCPCS: 80053; 83615; 85007; 85025 ==

== ENCOUNTER → 2019-10-03 08:58 | Outpatient (BNVA) | payer MEDICARE, OTHER, SELFPAY | PROVIDERS: PCP Nurse Practitioner; Visit Provider Internal Medicine Hematology & Oncology | DX: C91.10 Chronic lymphocytic leukemia of B-cell type not having achieved remission (principal); Z79.899 Other long term (current) drug therapy | CPT/HCPCS: 80053; 83615; 85025 ==

== ENCOUNTER → 2019-10-10 08:11 | Outpatient (BNVA) | payer MEDICARE, OTHER, SELFPAY | PROVIDERS: PCP Nurse Practitioner; Referring Provider Internal Medicine Medical Oncology; Visit Provider Nurse Practitioner | DX: C91.10 Chronic lymphocytic leukemia of B-cell type not having achieved remission (principal) | CPT/HCPCS: 85025 ==

== ENCOUNTER 2019-10-23 05:38 | Outpatient (RCR) | payer MEDICARE, OTHER, SELFPAY ==
[2019-10-11] MEDS: sodium chloride 0.9% 250 ML 999 ML IV (09:45)
[2019-10-11] MEDS: acetaminophen 325 mg Tablet 650 MG PO (09:48)
[2019-10-12] MEDS: sodium chloride 0.9% 250 ML 999 ML IV (09:40)
--- NOTE | 2019-10-13 11:17 | ONC FU_ITS ---
Dr. Plaza follow up note Patient: Lb Garcia Unit #: [id number]: 1950 Dicatated By: Rosanne Plaza M.D.Date of Visit:Oct 11, 2019 Onc Med Follow-up/Prog Note History of Present Illness: Mr. Garcia is a 69-year-old gentleman with a past history of elevated white blood count. He reports that he had been having low-grade fever since February 2016. He presented initially with night sweats and was diagnosed with pneumonia. His white blood count on October 06, 2016 was reported at 32,000. His hemoglobin was 14.4 platelets 170,000 and his differential reported lymphocytes of 83.2% neutrophils 13.7% absolute lymphocyte count was 26,700. Follow-up CBC on 10/28/2016 reported a white count of 33,700 and differential showed lymphocytes and 78.5%. He remained on observation. F CT of the chest abdomen pelvis on 04/25/2018 and when compared with a CT scan of chest abdomen pelvis from 11/25/2016 there was very mild progression in size and number of axillary, mediastinal and hilar as well as pelvic adenopathy. The spleen size is 14.8 cm compared to 13.4 cm on 11/25/2016. Follow-up CT of the chest abdomen pelvis on 01/05/2019 reported stable bilateral axillary, mediastinal, right hilar lymphadenopathy with no evidence of progression. The splenomegaly he had marginally increased from 04/25/2018. Was noted that he had progressive pelvic lymphadenopathy with a lymph node increased from 1.1 to 1.5 cm and 1.3 to 1.7 cm in the left external iliac. The left internal iliac measured 1.8 compared to 1.4 cm. It was noted that he had a large prostate as well. He did have follow-up repeat CT scan of the chest abdomen pelvis on May 19, 2019 which showed axillary, mediastinal and hilar lymph nodes which were indeterminate with no interval change. The largest lymph node measured at the right hilum was 14 mm. The pelvic lymphadenopathy was without significant progression in size or number since January 05, 2019. There were numerous enlarged lymph nodes. Some measures slightly smaller in size other slightly larger in size which was felt to be due to technical variation. The largest lymph node was measured at 19 mm in the left ureter region. He had markedly enlarged prostate gland. This splenomegaly was at 16.5 cm. It was noted that he had cholelithiasis. Mr. Garcia was started on ibrutinib 420 mg daily along with allopurinol on June 02, 2019. Unfortunately the ibrutinib was discontinued on August 03, 2019 at which time he had called reporting episodes of palpitations lasting for a long time . The ibrutinib was stopped and he was referred to cardiology. He had no further palpitations after stopping the ibrutinib. Mr. Garcia was here for follow-up on September 13, 2019. He was having no significant symptoms but had persistent peripheral lymphadenopathy involving the neck and bilateral axilla and inguinal area. He had no headaches vision changes fever or chills. He had no night sweats or weight loss or any recurrent fever at that time. Had any abdominal fullness as well. He did have follow-up echocardiogram on August 28, 2019 which reported a left ventricular size and systolic ejection fraction of 60%. There was trace mitral valve regurgitation. He did have cardiac monitoring for 15 days he had had any report preliminary report per [place] access reported baseline rhythm was found to be normal sinus with a rate of 61 bpm there was one episode of atrial fibrillation with rapid ventricular rate of 110 lasting for 2 minutes. He is followed with Dr. Murillo regarding the monitor. White count on the September 13, 2019 visit was noted to be 1 29,000. Previously on August 16 it was 235,000 and on May 21, 2019 was 303,000., was recommended to pursue systemic therapy with bendamustine Rituxan. He began his first cycle on September 13, 2019. Came for follow-up, denies any specific complaints, no fever chills, no nausea or vomiting, no diarrhea constipation, no night sweats, no recurrent fever, no palpitation, no shortness of breath, peripheral lymphadenopathy is also improving, as per patient, in his bilateral axilla, it is almost gone. Tolerated first cycle of bendamustine/Rituxan well . Medications: AmLODIPine Besylate 1 Tablet (of 10 mg) Oral daily, Finasteride 1 Tablet (of 5 mg) Oral daily, Lisinopril 1 Tablet (of 20 mg) Oral daily, Lovastatin ER 1 Tablet (of 40 mg) Tablet SR 24 HR Oral daily Allergies: No Known Allergies. Review of Systems: Constitutional - Appetite is good and weight is slowly increasing. No fever, chills, hot flashes, or night sweats. Energy level is [id number], ENMT - No sinus congestion/drainage. No mouth sores. No sore throat or difficulty swallowing, Hematologic/Lymphatic - No abnormal bruising or bleeding, Respiratory - No shortness of breath. No cough. No pleuritic pain or hemoptysis, Cardiovascular - No angina pain. No palpitations, Gastrointestinal - No nausea or vomiting. No heartburn or acid reflux. No diarrhea or constipation. No blood in the stool or black stools, Genitourinary (M) - No dysuria. Positive for hematuria. No urinary frequency. No urgency or incontinence, Musculoskeletal - No joint or bone pain, Neurologic - No headache or dizziness. No numbness/paresthesias or other focal neurologic symptoms, Psychiatric - No anxiety or depression. No insomnia. Vital Signs: Performed on Oct 11, 2019 08:39 Height - 69.50 in Weight - 221.2 lbs (LOW) BSA - 2.17 sq.m BMI - 32.20 (HIGH) Temperature - 97.5 F (LOW) Pulse - 68 /min Respiration - 18 /min BP - 132/68 mm(hg) O2 Sat - 98 % Pain - 0 Performance Status: 0 - Fully active, able to carry on all predisease activities without restrictions. (ECOG) Physical Examination: ENMT - No mouth sores, no thrush, no jaundice, significant improvement in peripheral lymphadenopathy involving bilateral neck and axilla and inguinal area, Respiratory - Lungs are clear, Cardiovascular - Regular rate and rhythm of heart, Abdomen - Soft, bowel sounds present, Extremities - No visible edema or rash. Lab/Imaging: Test performed on Oct 10, 2019 08:11 WBC 46.7 10^9/L RBC 4.38 10^12/L HGB 12.8 g/dL HCT 41.8 % MCV 95.4 fl MCH 29.2 pg MCHC 30.6 g/dL RDW 14.8 % Platelet Count 115 10^9/L MPV 11.0 fL Neutrophils (Gran) 1.92 10^9/L Lymphocytes 43.9 10^9/L Monocytes 0.7 10^9/L Eosinophils 0.1 10^9/L Basophils 0.0 10^9/L Manual Lymphocytes 94.0 % Manual Monocytes 1.5 % Manual Eosinophils 0.3 % Manual Basophils 0.0 % Test performed on Oct 03, 2019 08:58 Glucose 173 mg/dL LDH, Total 182 IU/L BUN 10 mg/dL Creatinine 1.0 mg/dL Cr Clearance (Est) 100.82 mL/min Sodium 139 mmol/L Potassium 4.1 mmol/L Chloride 101 mmol/L CO2 25 mmol/L Calcium 8.7 mg/dL Protein, Total 6.8 g/dL Albumin 4.5 g/dL Globulin 2.3 g/dL Bilirubin, Total 0.6 mg/dL Alkaline Phosphatase 74 IU/L AST (SGOT) 17 IU/L ALT (SGPT) 14 IU/L Test performed on Sep 21, 2019 11:40 Anion Gap 12.3 eGFR 66.6 mL/min NRBC % 0 % CBC Slide Review Slide Review Perform Manual Bands Abs 0.0 10 3/cmm Manual Monocytes Abs 1.0 10 3/cmm Test performed on Sep 13, 2019 10:00 Neutrophil % 2.9 % Lymphocyte % 94.1 % Monocyte % 2.7 % Eosinophil % 0.2 % Basophils % 0.0 % Test performed on Jul 05, 2019 13:45 Smudge Cells 2+ Anisocytosis 1+ Macrocytosis 1+ Test performed on Jun 09, 2019 16:20 Phosphorus 3.9 mg/dL Uric Acid 4.3 mg/dL Atypical Lymphs % 7.0 % Manual Lymphocytes Abs 210.8 10 3/cmm Test performed on May 24, 2019 10:50 Hemoglobin A1C % 6.2 % Impression: 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 Discussed with patient regarding his CT scan finding and lab workup. His white blood count is elevated due to lymphocytosis at 48.7 with a normal hemoglobin and hematocrit as well as platelets No evidence of peripheral lymphadenopathy or central lymphadenopathy except mild lymphadenopathy in pelvis maximum size 1.3 cm. When compared with [address] scan of pelvis on 06/07/2009 it was 0.8 cm. Incidental finding, large thyroid goiter causing impingement on trachea and esophagus at the cervicothoracic junction the vast majority of monotypic B cells express CD38 next CLL panel, FISH showed positive for deletion of TP53 (unfavorable prognosis and chemotherapy resistance) And IGHV status shows non-mutation e.g. poor prognostic features Quantitative immunoglobulins checked on 11/04/2016 showed IgG 1100 normal being 700-1600 IgM 53 normal being 40-230 IgA 150 normal being 70-400 Beta-2 microglobulin 0.230 normal being 0.109 -0.253 CT scan of chest abdomen pelvis done on 11/25/2016 showed bilateral lower lobe parenchymal scarring with bilateral lower lobe bronchiectasis segment similar to 06/07/2009. Thyroid goiter with tracheal and esophageal impingements at cervicothoracic junction. Nonspecific right hilar lymph nodes no enlarged or pathological lymphadenopathy seen. Mild iliac region lymph nodes enlargements since 06/07/2009 Size about 1.3 cm. mild splenomegaly Repeat sonogram of abdomen On 12/20/2017 shows mild splenomegaly now 12.9 cm compared to 13.2 cm on 03/02/2017 On 02/09/2018 patient was evaluated by Dr. Alvarenga clip on sunglasses assembler at [facility] and his labs done there showed white blood count 198.7 hemoglobin 13.4 hematocrit 34.4 platelets 188,000 IgA 100, IgM 43, IgG 889, SPEP no monoclonal peak, serum light chains showed kappa 2.44, lambda 2.9, kappa/lambda ratio 0.84 which was normal. And his recommendations were serial CT scan of chest abdomen pelvis once a year or sooner if needed. And continue to monitor CBC unless white blood count more than 200,000 as it may be associated with hyperviscosity and treatment options if decided to treat his recommendation was short course of bendamustine/Rituxan up to 4 cycles to achieve an initial response followed by ibrutinib maintenance. CT scan of chest abdomen pelvis done on 04/25/2018 showed very mild progression in the size and number of axillary, just tunnel, hilar and pelvic lymphadenopathy since 11/25/2016 Mild increase in size of spleen since 11/25/2016, now 14.8 cm compared to 13.4 before. Severe prostrate gland enlargement Plan: Discussed with patient regarding his labs white blood count 46.7, hemoglobin 12.8 hematocrit 41.8 platelets 115,000, CMP within normal limits checked on October 03, 2019 Clinically, patient is doing well, no B signs symptoms, peripheral lymphadenopathy also improving as well as lymphocytosis/leukocytosis, will proceed with second cycle of chemotherapy with bendamustine/Rituxan today and then he will return to clinic in morning for day 2 bendamustine and we will see him back in 2 weeks with CBC CMP Patient was advised to continue with allopurinol and maintain good hydration Signed By: Rosanne Plaza M.D. <<Signature on File>>
[2019-10-23 11:57] LABS: Hematocrit 38.4 % (42.0-52.0); Hemoglobin 11.8 g/dL (11.7-16.6); Mean Corpuscular HGB Conc 30.7 g/dL (30.0-36.0); Mean Corpuscular Hemoglobin 29.4 pg (28.0-34.0); Mean Corpuscular Volume 95.8 fL (80-94); Platelet Count 128 10^3/cmm (130-400); Red Blood Count 4.01 10^6/uL (4.1-5.3); Red Cell Distribution Width 16.6 % (12.1-15.1); White Blood Count 26.3 10^3/uL (4.0-10.0)
[2019-10-23 12:23] LABS: Alanine Aminotransferase 17 U/L (0-41); Alkaline Phosphatase 66 IU/L (40-130); Anion Gap 12.7 (5-19); Aspartate Amino Transferase 18 U/L (0-40); Blood Urea Nitrogen 11 mg/dL (8-23); Calcium 8.7 mg/dL (8.5-10.5); Carbon Dioxide 27 mmol/L (22-29); Chloride 103 mmol/L (98-107); Globulin 2.3 g/dL (1.3-4.6); Glomerular Filtration Rate 74.1 mL/min (90-130); Glucose 119 mg/dL (65-115); Osmolality Calculated 285 mOsm/kg (285-295); Potassium 3.7 mmol/L (3.5-5.1); Sodium 139 mmol/L (136-145); Total Bilirubin 0.6 mg/dL (0.15-1.2); Total Protein 6.3 g/dL (6.6-8.7)
[2019-10-23 12:34] LABS: Slide Review Slide Review Perform
[2019-10-23 12:37] LABS: Absolute Segmented Neutrophil 1.3 10/cmm (1.6-7.1); Segmented Neutrophils 5 %; Total Cells Counted 100 (0-100)
[2019-10-23 12:38] LABS: Absolute Neutrophil 1.3 10^3/cmm (1.4-6.5); Anisocytosis Trace; Lymphocytes 76 %; Platelet Estimate Decreased (Normal)
--- NOTE | 2019-10-24 18:35 | ONC FU_ITS ---
Dr. Plaza follow up note Patient: Lb Garcia Unit #: [id number]: 1950 Dicatated By: Rosanne Plaza M.D.Date of Visit:Oct 23, 2019 Onc Med Follow-up/Prog Note History of Present Illness: Mr. Garcia is a 69-year-old gentleman with a past history of elevated white blood count. He reports that he had been having low-grade fever since February 2016. He presented initially with night sweats and was diagnosed with pneumonia. His white blood count on October 06, 2016 was reported at 32,000. His hemoglobin was 14.4 platelets 170,000 and his differential reported lymphocytes of 83.2% neutrophils 13.7% absolute lymphocyte count was 26,700. Follow-up CBC on 10/28/2016 reported a white count of 33,700 and differential showed lymphocytes and 78.5%. He remained on observation. F CT of the chest abdomen pelvis on 04/25/2018 and when compared with a CT scan of chest abdomen pelvis from 11/25/2016 there was very mild progression in size and number of axillary, mediastinal and hilar as well as pelvic adenopathy. The spleen size is 14.8 cm compared to 13.4 cm on 11/25/2016. Follow-up CT of the chest abdomen pelvis on 01/05/2019 reported stable bilateral axillary, mediastinal, right hilar lymphadenopathy with no evidence of progression. The splenomegaly he had marginally increased from 04/25/2018. Was noted that he had progressive pelvic lymphadenopathy with a lymph node increased from 1.1 to 1.5 cm and 1.3 to 1.7 cm in the left external iliac. The left internal iliac measured 1.8 compared to 1.4 cm. It was noted that he had a large prostate as well. He did have follow-up repeat CT scan of the chest abdomen pelvis on May 19, 2019 which showed axillary, mediastinal and hilar lymph nodes which were indeterminate with no interval change. The largest lymph node measured at the right hilum was 14 mm. The pelvic lymphadenopathy was without significant progression in size or number since January 05, 2019. There were numerous enlarged lymph nodes. Some measures slightly smaller in size other slightly larger in size which was felt to be due to technical variation. The largest lymph node was measured at 19 mm in the left ureter region. He had markedly enlarged prostate gland. This splenomegaly was at 16.5 cm. It was noted that he had cholelithiasis. Mr. Garcia was started on ibrutinib 420 mg daily along with allopurinol on June 02, 2019. Unfortunately the ibrutinib was discontinued on August 03, 2019 at which time he had called reporting episodes of palpitations lasting for a long time . The ibrutinib was stopped and he was referred to cardiology. He had no further palpitations after stopping the ibrutinib. Mr. Garcia was here for follow-up on September 13, 2019. He was having no significant symptoms but had persistent peripheral lymphadenopathy involving the neck and bilateral axilla and inguinal area. He had no headaches vision changes fever or chills. He had no night sweats or weight loss or any recurrent fever at that time. Had any abdominal fullness as well. He did have follow-up echocardiogram on August 28, 2019 which reported a left ventricular size and systolic ejection fraction of 60%. There was trace mitral valve regurgitation. He did have cardiac monitoring for 15 days he had had any report preliminary report per [place] access reported baseline rhythm was found to be normal sinus with a rate of 61 bpm there was one episode of atrial fibrillation with rapid ventricular rate of 110 lasting for 2 minutes. He is followed with Dr. Murillo regarding the monitor. White count on the September 13, 2019 visit was noted to be 1 29,000. Previously on August 16 it was 235,000 and on May 21, 2019 was 303,000., was recommended to pursue systemic therapy with bendamustine Rituxan. He began his first cycle on September 13, 2019. Came for follow-up, denies any specific complaints, no fever chills, no nausea or vomiting, no diarrhea constipation, no night sweats, no recurrent fever, no palpitation. Patient has chronic off and on rash involving bilateral upper inner thighs and buttock crease in the past responded very well to [id number] cream, never seen dermatology for that.. . Medications: AmLODIPine Besylate 1 Tablet (of 10 mg) Oral daily, Finasteride 1 Tablet (of 5 mg) Oral daily, Lisinopril 1 Tablet (of 20 mg) Oral daily, Lovastatin ER 1 Tablet (of 40 mg) Tablet SR 24 HR Oral daily Allergies: No Known Allergies. Review of Systems: Review of Systems is not available for this patient. Vital Signs: Performed on Oct 23, 2019 13:13 Height - 69.50 in Weight - 219.6 lbs (LOW) BSA - 2.16 sq.m BMI - 31.96 (HIGH) Temperature - 97.8 F (LOW) Pulse - 76 /min Respiration - 20 /min BP - 122/60 mm(hg) O2 Sat - 95 % (LOW) Pain - 0 Performance Status: 0 - Fully active, able to carry on all predisease activities without restrictions. (ECOG) Physical Examination: ENMT - No mouth sores, no thrush, no jaundice, Respiratory - Lungs are clear, Cardiovascular - Regular rate and rhythm of heart, Abdomen - Soft, bowel sounds present, Extremities - No edema but maculopapular rash involving bilateral upper inner thighs, no oozing or discharge. Lab/Imaging: Test performed on Oct 10, 2019 08:11 WBC 46.7 10^9/L RBC 4.38 10^12/L HGB 12.8 g/dL HCT 41.8 % MCV 95.4 fl MCH 29.2 pg MCHC 30.6 g/dL RDW 14.8 % Platelet Count 115 10^9/L MPV 11.0 fL Neutrophils (Gran) 1.92 10^9/L Lymphocytes 43.9 10^9/L Monocytes 0.7 10^9/L Eosinophils 0.1 10^9/L Basophils 0.0 10^9/L Manual Lymphocytes 94.0 % Manual Monocytes 1.5 % Manual Eosinophils 0.3 % Manual Basophils 0.0 % Test performed on Oct 03, 2019 08:58 Glucose 173 mg/dL LDH, Total 182 IU/L BUN 10 mg/dL Creatinine 1.0 mg/dL Cr Clearance (Est) 100.82 mL/min Sodium 139 mmol/L Potassium 4.1 mmol/L Chloride 101 mmol/L CO2 25 mmol/L Calcium 8.7 mg/dL Protein, Total 6.8 g/dL Albumin 4.5 g/dL Globulin 2.3 g/dL Bilirubin, Total 0.6 mg/dL Alkaline Phosphatase 74 IU/L AST (SGOT) 17 IU/L ALT (SGPT) 14 IU/L Test performed on Sep 21, 2019 11:40 Anion Gap 12.3 eGFR 66.6 mL/min NRBC % 0 % CBC Slide Review Slide Review Perform Manual Bands Abs 0.0 10 3/cmm Manual Monocytes Abs 1.0 10 3/cmm Test performed on Sep 13, 2019 10:00 Neutrophil % 2.9 % Lymphocyte % 94.1 % Monocyte % 2.7 % Eosinophil % 0.2 % Basophils % 0.0 % Test performed on Jul 05, 2019 13:45 Smudge Cells 2+ Anisocytosis 1+ Macrocytosis 1+ Test performed on Jun 09, 2019 16:20 Phosphorus 3.9 mg/dL Uric Acid 4.3 mg/dL Atypical Lymphs % 7.0 % Manual Lymphocytes Abs 210.8 10 3/cmm Test performed on May 24, 2019 10:50 Hemoglobin A1C % 6.2 % Impression: 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 Discussed with patient regarding his CT scan finding and lab workup. His white blood count is elevated due to lymphocytosis at 48.7 with a normal hemoglobin and hematocrit as well as platelets No evidence of peripheral lymphadenopathy or central lymphadenopathy except mild lymphadenopathy in pelvis maximum size 1.3 cm. When compared with CT scan of pelvis on 06/07/2009 it was 0.8 cm. Incidental finding, large thyroid goiter causing impingement on trachea and esophagus at the cervicothoracic junction the vast majority of monotypic B cells express CD38 next CLL panel, FISH showed positive for deletion of TP53 (unfavorable prognosis and chemotherapy resistance) And IGHV status shows non-mutation e.g. poor prognostic features Quantitative immunoglobulins checked on 11/04/2016 showed IgG 1100 normal being 700-1600 IgM 53 normal being 40-230 IgA 150 normal being 70-400 Beta-2 microglobulin 0.230 normal being 0.109 -0.253 CT scan of chest abdomen pelvis done on 11/25/2016 showed bilateral lower lobe parenchymal scarring with bilateral lower lobe bronchiectasis segment similar to 06/07/2009. Thyroid goiter with tracheal and esophageal impingements at cervicothoracic junction. Nonspecific right hilar lymph nodes no enlarged or pathological lymphadenopathy seen. Mild iliac region lymph nodes enlargements since 06/07/2009 Size about 1.3 cm. mild splenomegaly Repeat sonogram of abdomen On 12/20/2017 shows mild splenomegaly now 12.9 cm compared to 13.2 cm on 03/02/2017 On 02/09/2018 patient was evaluated by Dr. Alvarenga bin filler at [facility] and his labs done there showed white blood count 198.7 hemoglobin 13.4 hematocrit 34.4 platelets 188,000 IgA 100, IgM 43, IgG 889, SPEP no monoclonal peak, serum light chains showed kappa 2.44, lambda 2.9, kappa/lambda ratio 0.84 which was normal. And his recommendations were serial CT scan of chest abdomen pelvis once a year or sooner if needed. And continue to monitor CBC unless white blood count more than 200,000 as it may be associated with hyperviscosity and treatment options if decided to treat his recommendation was short course of bendamustine/Rituxan up to 4 cycles to achieve an initial response followed by ibrutinib maintenance. CT scan of chest abdomen pelvis done on 04/25/2018 showed very mild progression in the size and number of axillary, just tunnel, hilar and pelvic lymphadenopathy since 11/25/2016 Mild increase in size of spleen since 11/25/2016, now 14.8 cm compared to 13.4 before. Severe prostrate gland enlargement Plan: Discussed with patient regarding his labs white blood count 26.3 hemoglobin 11.8 hematocrit 38.4 platelets 128,000 absolute neutrophil count 1300 CMP within normal limits Clinically, patient is doing well, no new symptoms, follow-up lab work-up shows leukocytosis/lymphocytosis continue to improve with mild but improving thrombocytopenia, electrolytes within normal range,As far as bilateral upper inner thigh rash is concerned, etiology unclear, patient was offered referral to dermatology for evaluation but patient declined, said he feels comfortable with his own [id number] cream as it always helps when needed. He will return to clinic in 2 weeks for cycle #3 with bendamustine/Rituxan. Signed By: Rosanne Plaza M.D. <<Signature on File>>
== END 2019-11-06 23:59 | disposition home or self-care (01) ==
LOC: ONCMED 05:38
PROVIDERS: PCP Nurse Practitioner; Visit Provider Internal Medicine Hematology & Oncology
DX: Z51.12 Encounter for antineoplastic immunotherapy (principal); Z51.11 Encounter for antineoplastic chemotherapy; C91.10 Chronic lymphocytic leukemia of B-cell type not having achieved remission; N40.0 Benign prostatic hyperplasia without lower urinary tract symptoms; G47.33 Obstructive sleep apnea (adult) (pediatric); E78.5 Hyperlipidemia, unspecified; E11.9 Type 2 diabetes mellitus without complications; I10 Essential (primary) hypertension
CPT/HCPCS: 80053; 85007; 85025; 96367; 96368; 96413; 96415; 96417; 99214; J1100; J1200; J2405; J2469; J7040; J7050; J9034; J9312

== ENCOUNTER → 2019-12-05 08:12 | Outpatient (BNVA) | payer MEDICARE, OTHER, SELFPAY | PROVIDERS: PCP Nurse Practitioner; Visit Provider Internal Medicine Hematology & Oncology | DX: C91.90 Lymphoid leukemia, unspecified not having achieved remission (principal); D72.820 Lymphocytosis (symptomatic) | CPT/HCPCS: 80053; 85007; 85025 ==

== ENCOUNTER 2019-12-06 05:32 | Outpatient (RCR) | payer MEDICARE, OTHER, SELFPAY ==
[2019-11-08] MEDS: acetaminophen 325 mg Tablet 650 MG PO (09:48)
[2019-11-08] MEDS: sodium chloride 0.9% 1,000 ML 999 ML IV (10:40)
[2019-11-09] MEDS: sodium chloride 0.9% 250 ML 999 ML IV (09:10)
--- NOTE | 2019-11-09 13:30 | ONC FU_ITS ---
Dr. Plaza follow up note Patient: Lb Garcia Unit #: [id number]: 1950 Dicatated By: Rosanne Plaza M.D.Date of Visit:Nov 08, 2019 Onc Med Follow-up/Prog Note History of Present Illness: Mr. Garcia is a 69-year-old gentleman with a past history of elevated white blood count. He reports that he had been having low-grade fever since February 2016. He presented initially with night sweats and was diagnosed with pneumonia. His white blood count on October 06, 2016 was reported at 32,000. His hemoglobin was 14.4 platelets 170,000 and his differential reported lymphocytes of 83.2% neutrophils 13.7% absolute lymphocyte count was 26,700. Follow-up CBC on 10/28/2016 reported a white count of 33,700 and differential showed lymphocytes and 78.5%. He remained on observation. F CT of the chest abdomen pelvis on 04/25/2018 and when compared with a CT scan of chest abdomen pelvis from 11/25/2016 there was very mild progression in size and number of axillary, mediastinal and hilar as well as pelvic adenopathy. The spleen size is 14.8 cm compared to 13.4 cm on 11/25/2016. Follow-up CT of the chest abdomen pelvis on 01/05/2019 reported stable bilateral axillary, mediastinal, right hilar lymphadenopathy with no evidence of progression. The splenomegaly he had marginally increased from 04/25/2018. Was noted that he had progressive pelvic lymphadenopathy with a lymph node increased from 1.1 to 1.5 cm and 1.3 to 1.7 cm in the left external iliac. The left internal iliac measured 1.8 compared to 1.4 cm. It was noted that he had a large prostate as well. He did have follow-up repeat CT scan of the chest abdomen pelvis on May 19, 2019 which showed axillary, mediastinal and hilar lymph nodes which were indeterminate with no interval change. The largest lymph node measured at the right hilum was 14 mm. The pelvic lymphadenopathy was without significant progression in size or number since January 05, 2019. There were numerous enlarged lymph nodes. Some measures slightly smaller in size other slightly larger in size which was felt to be due to technical variation. The largest lymph node was measured at 19 mm in the left ureter region. He had markedly enlarged prostate gland. This splenomegaly was at 16.5 cm. It was noted that he had cholelithiasis. Mr. Garcia was started on ibrutinib 420 mg daily along with allopurinol on June 02, 2019. Unfortunately the ibrutinib was discontinued on August 03, 2019 at which time he had called reporting episodes of palpitations lasting for a long time . The ibrutinib was stopped and he was referred to cardiology. He had no further palpitations after stopping the ibrutinib. Mr. Garcia was here for follow-up on September 13, 2019. He was having no significant symptoms but had persistent peripheral lymphadenopathy involving the neck and bilateral axilla and inguinal area. He had no headaches vision changes fever or chills. He had no night sweats or weight loss or any recurrent fever at that time. Had any abdominal fullness as well. He did have follow-up echocardiogram on August 28, 2019 which reported a left ventricular size and systolic ejection fraction of 60%. There was trace mitral valve regurgitation. He did have cardiac monitoring for 15 days he had had any report preliminary report per [employer] access reported baseline rhythm was found to be normal sinus with a rate of 61 bpm there was one episode of atrial fibrillation with rapid ventricular rate of 110 lasting for 2 minutes. He is followed with Dr. Murillo regarding the monitor. White count on the September 13, 2019 visit was noted to be 1 29,000. Previously on August 16 it was 235,000 and on May 21, 2019 was 303,000., was recommended to pursue systemic therapy with bendamustine Rituxan. He began his first cycle on September 13, 2019. Came for follow-up, denies any specific complaints, no fever chills, no nausea or vomiting, no diarrhea constipation, no night sweats,, no palpitation, no shortness of breath, tolerating bendamustine/Rituxan well. . Medications: AmLODIPine Besylate 1 Tablet (of 10 mg) Oral daily, Aspirin 1 Tablet (of 81 mg) Tablet, enteric coated Oral daily, Finasteride 1 Tablet (of 5 mg) Oral daily, Furosemide 1 Tablet (of 20 mg) Oral daily, Lisinopril 1 Tablet (of 20 mg) Oral daily, Lovastatin ER 1 Tablet (of 40 mg) Tablet SR 24 HR Oral daily Allergies: No Known Allergies. Review of Systems: Review of Systems is not available for this patient. Vital Signs: Performed on Nov 08, 2019 08:49 Height - 69.50 in Weight - 219.6 lbs BSA - 2.16 sq.m BMI - 31.96 (HIGH) Temperature - 98.1 F (LOW) Pulse - 78 /min Respiration - 18 /min BP - 152/78 mm(hg) (HIGH) O2 Sat - 97 % Pain - 0 Performance Status: 0 - Fully active, able to carry on all predisease activities without restrictions. (ECOG) Physical Examination: ENMT - No mouth sores, no thrush, no jaundice, Respiratory - Lungs are clear, Cardiovascular - Regular rate and rhythm of heart, Abdomen - Soft, bowel sounds present, Extremities - No visible edema. Lab/Imaging: Test performed on Nov 07, 2019 08:07 Glucose 156 mg/dL BUN 11 mg/dL Creatinine 1.1 mg/dL Cr Clearance (Est) 91.66 mL/min Sodium 140 mmol/L Potassium 4.0 mmol/L Chloride 102 mmol/L CO2 22 mmol/L Calcium 8.6 mg/dL Protein, Total 6.8 g/dL Albumin 4.3 g/dL Globulin 2.5 g/dL Bilirubin, Total 0.5 mg/dL Alkaline Phosphatase 70 IU/L AST (SGOT) 14 IU/L ALT (SGPT) 16 IU/L Hemoglobin A1C 5.8 % WBC 44.7 10^9/L RBC 4.23 10^12/L HGB 12.6 g/dL HCT 40.7 % MCV 96.2 fl MCH 29.8 pg MCHC 31.0 g/dL RDW 17.2 % Platelet Count 149 10^9/L MPV 11.5 fL Lymphocytes 38.9 10^9/L Monocytes 2.7 10^9/L Manual Lymphocytes 80 % Manual Monocytes 6.0 % Test performed on Oct 10, 2019 08:11 Neutrophils (Gran) 1.92 10^9/L Eosinophils 0.1 10^9/L Basophils 0.0 10^9/L Manual Eosinophils 0.3 % Manual Basophils 0.0 % Test performed on Oct 03, 2019 08:58 LDH, Total 182 IU/L Test performed on Sep 21, 2019 11:40 Anion Gap 12.3 eGFR 66.6 mL/min NRBC % 0 % CBC Slide Review Slide Review Perform Manual Bands Abs 0.0 10 3/cmm Manual Monocytes Abs 1.0 10 3/cmm Test performed on Sep 13, 2019 10:00 Neutrophil % 2.9 % Lymphocyte % 94.1 % Monocyte % 2.7 % Eosinophil % 0.2 % Basophils % 0.0 % Test performed on Jul 05, 2019 13:45 Smudge Cells 2+ Anisocytosis 1+ Macrocytosis 1+ Test performed on Jun 09, 2019 16:20 Phosphorus 3.9 mg/dL Uric Acid 4.3 mg/dL Atypical Lymphs % 7.0 % Manual Lymphocytes Abs 210.8 10 3/cmm Impression: 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 Discussed with patient regarding his CT scan finding and lab workup. His white blood count is elevated due to lymphocytosis at 48.7 with a normal hemoglobin and hematocrit as well as platelets No evidence of peripheral lymphadenopathy or central lymphadenopathy except mild lymphadenopathy in pelvis maximum size 1.3 cm. When compared with CT scan of pelvis on 06/07/2009 it was 0.8 cm. Incidental finding, large thyroid goiter causing impingement on trachea and esophagus at the cervicothoracic junction the vast majority of monotypic B cells express CD38 next CLL panel, FISH showed positive for deletion of TP53 (unfavorable prognosis and chemotherapy resistance) And IGHV status shows non-mutation e.g. poor prognostic features Quantitative immunoglobulins checked on 11/04/2016 showed IgG 1100 normal being 700-1600 IgM 53 normal being 40-230 IgA 150 normal being 70-400 Beta-2 microglobulin 0.230 normal being 0.109 -0.253 CT scan of chest abdomen pelvis done on 11/25/2016 showed bilateral lower lobe parenchymal scarring with bilateral lower lobe bronchiectasis segment similar to 06/07/2009. Thyroid goiter with tracheal and esophageal impingements at cervicothoracic junction. Nonspecific right hilar lymph nodes no enlarged or pathological lymphadenopathy seen. Mild iliac region lymph nodes enlargements since 06/07/2009 Size about 1.3 cm. mild splenomegaly Repeat sonogram of abdomen On 12/20/2017 shows mild splenomegaly now 12.9 cm compared to 13.2 cm on 03/02/2017 On 02/09/2018 patient was evaluated by Dr. Alvarenga home aid at [facility] and his labs done there showed white blood count 198.7 hemoglobin 13.4 hematocrit 34.4 platelets 188,000 IgA 100, IgM 43, IgG 889, SPEP no monoclonal peak, serum light chains showed kappa 2.44, lambda 2.9, kappa/lambda ratio 0.84 which was normal. And his recommendations were serial CT scan of chest abdomen pelvis once a year or sooner if needed. And continue to monitor CBC unless white blood count more than 200,000 as it may be associated with hyperviscosity and treatment options if decided to treat his recommendation was short course of bendamustine/Rituxan up to 4 cycles to achieve an initial response followed by ibrutinib maintenance. CT scan of chest abdomen pelvis done on 04/25/2018 showed very mild progression in the size and number of axillary, just tunnel, hilar and pelvic lymphadenopathy since 11/25/2016 Mild increase in size of spleen since 11/25/2016, now 14.8 cm compared to 13.4 before. Severe prostrate gland enlargement Plan: Discussed with patient regarding his labs white blood count 44.7 hemoglobin 12.6 hematocrit 40.7 platelets 149,000 CMP within normal limits except glucose 156 Clinically, patient is doing well, tolerating bendamustine/Rituxan well but with expected side effects. We will proceed with next cycle #3 with bendamustine Rituxan today and then he will return to clinic in the morning for day 2 bendamustine and after that in 4 weeks with CBC CMP and LDH Signed By: Rosanne Plaza M.D. <<Signature on File>>
--- NOTE | 2019-12-06 14:34 | ONC FU_ITS ---
Dr. Plaza follow up note Patient: Lb Garcia Unit #: [id number]: 1950 Dicatated By: Rosanne Plaza M.D.Date of Visit:Dec 06, 2019 Onc Med Follow-up/Prog Note History of Present Illness: Mr. Garcia is a 69-year-old gentleman with a past history of elevated white blood count. He reports that he had been having low-grade fever since February 2016. He presented initially with night sweats and was diagnosed with pneumonia. His white blood count on October 06, 2016 was reported at 32,000. His hemoglobin was 14.4 platelets 170,000 and his differential reported lymphocytes of 83.2% neutrophils 13.7% absolute lymphocyte count was 26,700. Follow-up CBC on 10/28/2016 reported a white count of 33,700 and differential showed lymphocytes and 78.5%. He remained on observation. F CT of the chest abdomen pelvis on 04/25/2018 and when compared with a CT scan of chest abdomen pelvis from 11/25/2016 there was very mild progression in size and number of axillary, mediastinal and hilar as well as pelvic adenopathy. The spleen size is 14.8 cm compared to 13.4 cm on 11/25/2016. Follow-up CT of the chest abdomen pelvis on 01/05/2019 reported stable bilateral axillary, mediastinal, right hilar lymphadenopathy with no evidence of progression. The splenomegaly he had marginally increased from 04/25/2018. Was noted that he had progressive pelvic lymphadenopathy with a lymph node increased from 1.1 to 1.5 cm and 1.3 to 1.7 cm in the left external iliac. The left internal iliac measured 1.8 compared to 1.4 cm. It was noted that he had a large prostate as well. He did have follow-up repeat CT scan of the chest abdomen pelvis on May 19, 2019 which showed axillary, mediastinal and hilar lymph nodes which were indeterminate with no interval change. The largest lymph node measured at the right hilum was 14 mm. The pelvic lymphadenopathy was without significant progression in size or number since January 05, 2019. There were numerous enlarged lymph nodes. Some measures slightly smaller in size other slightly larger in size which was felt to be due to technical variation. The largest lymph node was measured at 19 mm in the left ureter region. He had markedly enlarged prostate gland. This splenomegaly was at 16.5 cm. It was noted that he had cholelithiasis. Mr. Garcia was started on ibrutinib 420 mg daily along with allopurinol on June 02, 2019. Unfortunately the ibrutinib was discontinued on August 03, 2019 at which time he had called reporting episodes of palpitations lasting for a long time . The ibrutinib was stopped and he was referred to cardiology. He had no further palpitations after stopping the ibrutinib. Mr. Garcia was here for follow-up on September 13, 2019. He was having no significant symptoms but had persistent peripheral lymphadenopathy involving the neck and bilateral axilla and inguinal area. He had no headaches vision changes fever or chills. He had no night sweats or weight loss or any recurrent fever at that time. Had any abdominal fullness as well. He did have follow-up echocardiogram on August 28, 2019 which reported a left ventricular size and systolic ejection fraction of 60%. There was trace mitral valve regurgitation. He did have cardiac monitoring for 15 days he had had any report preliminary report per [employer] access reported baseline rhythm was found to be normal sinus with a rate of 61 bpm there was one episode of atrial fibrillation with rapid ventricular rate of 110 lasting for 2 minutes. He is followed with Dr. Murillo regarding the monitor. White count on the September 13, 2019 visit was noted to be 1 29,000. Previously on August 16 it was 235,000 and on May 21, 2019 was 303,000., was recommended to pursue systemic therapy with bendamustine Rituxan. He began his first cycle on September 13, 2019. Came for follow-up, complaining of flulike symptoms for the last couple of days, sore throat, cough and generalized body aches and low-grade fever but no yellowish phlegm patient denies coming in contact with somebody with COVID infection. No burning micturition, no chills, no high-grade fever, . Medications: AmLODIPine Besylate 1 Tablet (of 10 mg) Oral daily, Aspirin 1 Tablet (of 81 mg) Tablet, enteric coated Oral daily, Eliquis 1 Tablet (of 5 mg) Oral b.i.d., Finasteride 1 Tablet (of 5 mg) Oral daily, Furosemide 1 Tablet (of 20 mg) Oral daily, Lisinopril 1 Tablet (of 20 mg) Oral daily, Lovastatin ER 1 Tablet (of 40 mg) Tablet SR 24 HR Oral daily Allergies: No Known Allergies. Review of Systems: Constitutional - Appetite is good and weight is slowly increasing. No fever, chills, hot flashes, or night sweats. Energy level is [id number], ENMT - No sinus congestion/drainage. No mouth sores. No sore throat or difficulty swallowing, Hematologic/Lymphatic - No abnormal bruising or bleeding, Respiratory - No shortness of breath. No cough. No pleuritic pain or hemoptysis, Cardiovascular - No angina pain. No palpitations, Gastrointestinal - No nausea or vomiting. No heartburn or acid reflux. No diarrhea or constipation. No blood in the stool or black stools, Genitourinary (M) - No dysuria. Positive for hematuria. No urinary frequency. No urgency or incontinence, Musculoskeletal - No joint or bone pain, Neurologic - No headache or dizziness. No numbness/paresthesias or other focal neurologic symptoms, Psychiatric - No anxiety or depression. No insomnia. Vital Signs: Performed on Dec 06, 2019 09:43 Height - 69.50 in Weight - 212.8 lbs (LOW) BSA - 2.13 sq.m BMI - 30.97 (HIGH) Temperature - 97.3 F (LOW) Pulse - 75 /min Respiration - 20 /min BP - 140/70 mm(hg) O2 Sat - 96 % Pain - 0 Performance Status: 1 - No physically strenuous activity, but ambulatory and able to carry out light or sedentary work (e.g. office work, light house work). (ECOG) Physical Examination: ENMT - No mucositis, no thrush mild throat erythema, Respiratory - Lungs are clear to auscultation, Cardiovascular - Regular rate and rhythm of heart, Abdomen - Soft, bowel sounds, Extremities - No visible edema. Lab/Imaging: Test performed on Dec 05, 2019 08:12 Glucose 129 mg/dL BUN 8 mg/dL Creatinine 0.9 mg/dL Cr Clearance (Est) 112.02 mL/min Sodium 139 mmol/L Potassium 3.4 mmol/L Chloride 102 mmol/L CO2 26 mmol/L Calcium 8.4 mg/dL Protein, Total 6.2 g/dL Albumin 3.9 g/dL Globulin 2.3 g/dL Bilirubin, Total 0.7 mg/dL Alkaline Phosphatase 83 IU/L AST (SGOT) 25 IU/L ALT (SGPT) 30 IU/L WBC 17.9 10^9/L RBC 4.04 10^12/L HGB 11.8 g/dL HCT 38.4 % MCV 95.0 fl MCH 29.2 pg MCHC 30.7 g/dL RDW 16.3 % Platelet Count 145 10^9/L MPV 10.8 fL Neutrophils (Gran) 0.9 10^9/L Lymphocytes 16.8 10^9/L Monocytes 0.0 10^9/L Eosinophils 0.1 10^9/L Basophils 0.0 10^9/L Manual Lymphocytes 76 % Manual Monocytes 0.0 % Manual Eosinophils 1 % Test performed on Nov 07, 2019 08:07 Hemoglobin A1C 5.8 % Test performed on Oct 10, 2019 08:11 Manual Basophils 0.0 % Test performed on Oct 03, 2019 08:58 LDH, Total 182 IU/L Test performed on Sep 21, 2019 11:40 Anion Gap 12.3 eGFR 66.6 mL/min NRBC % 0 % CBC Slide Review Slide Review Perform Manual Bands Abs 0.0 10 3/cmm Manual Monocytes Abs 1.0 10 3/cmm Test performed on Sep 13, 2019 10:00 Neutrophil % 2.9 % Lymphocyte % 94.1 % Monocyte % 2.7 % Eosinophil % 0.2 % Basophils % 0.0 % Test performed on Jul 05, 2019 13:45 Smudge Cells 2+ Anisocytosis 1+ Macrocytosis 1+ Test performed on Jun 09, 2019 16:20 Phosphorus 3.9 mg/dL Uric Acid 4.3 mg/dL Atypical Lymphs % 7.0 % Manual Lymphocytes Abs 210.8 10 3/cmm Impression: 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 Discussed with patient regarding his CT scan finding and lab workup. His white blood count is elevated due to lymphocytosis at 48.7 with a normal hemoglobin and hematocrit as well as platelets No evidence of peripheral lymphadenopathy or central lymphadenopathy except mild lymphadenopathy in pelvis maximum size 1.3 cm. When compared with CT scan of pelvis on 06/07/2009 it was 0.8 cm. Incidental finding, large thyroid goiter causing impingement on trachea and esophagus at the cervicothoracic junction the vast majority of monotypic B cells express CD38 next CLL panel, FISH showed positive for deletion of TP53 (unfavorable prognosis and chemotherapy resistance) And IGHV status shows non-mutation e.g. poor prognostic features Quantitative immunoglobulins checked on 11/04/2016 showed IgG 1100 normal being 700-1600 IgM 53 normal being 40-230 IgA 150 normal being 70-400 Beta-2 microglobulin 0.230 normal being 0.109 -0.253 CT scan of chest abdomen pelvis done on 11/25/2016 showed bilateral lower lobe parenchymal scarring with bilateral lower lobe bronchiectasis segment similar to 06/07/2009. Thyroid goiter with tracheal and esophageal impingements at cervicothoracic junction. Nonspecific right hilar lymph nodes no enlarged or pathological lymphadenopathy seen. Mild iliac region lymph nodes enlargements since 06/07/2009 Size about 1.3 cm. mild splenomegaly Repeat sonogram of abdomen On 12/20/2017 shows mild splenomegaly now 12.9 cm compared to 13.2 cm on 03/02/2017 On 02/09/2018 patient was evaluated by Dr. Alvarenga lamina searcher at [facility] and his labs done there showed white blood count 198.7 hemoglobin 13.4 hematocrit 34.4 platelets 188,000 IgA 100, IgM 43, IgG 889, SPEP no monoclonal peak, serum light chains showed kappa 2.44, lambda 2.9, kappa/lambda ratio 0.84 which was normal. And his recommendations were serial CT scan of chest abdomen pelvis once a year or sooner if needed. And continue to monitor CBC unless white blood count more than 200,000 as it may be associated with hyperviscosity and treatment options if decided to treat his recommendation was short course of bendamustine/Rituxan up to 4 cycles to achieve an initial response followed by ibrutinib maintenance. CT scan of chest abdomen pelvis done on 04/25/2018 showed very mild progression in the size and number of axillary, just tunnel, hilar and pelvic lymphadenopathy since 11/25/2016 Mild increase in size of spleen since 11/25/2016, now 14.8 cm compared to 13.4 before. Severe prostrate gland enlargement Plan: Discussed with patient regarding his labs white blood count 17.9, hemoglobin 11.8 hematocrit 38.4 platelets 145,000 CMP within normal limit except potassium 3.4 Clinically, patient doing reasonably well but no concerned about his flulike symptom especially in COVID-19 pandemic, and his follow-up CBC shows progressive improvement in total white blood cells but also shows progressive neutropenia his ANC is 900, we will hold his treatment with bendamustine/Rituxan today and testing for COVID-19, if negative then he will come back in 1 week with CBC CMP if positive then he will return to clinic in 3 weeks with CBC CMP hopefully by that time his neutrophil count will improve and he will receive his final cycle of treatment with bendamustine/Rituxan. Mild hypokalemia, patient was advised to take potassium supplement and will monitor his potassium level. Patient was advised in case there is a worsening of symptoms e.g. progressive shortness of breath or mental status changes he need to go to hospital immediately for further evaluation. Signed By: Rosanne Plaza M.D. <<Signature on File>>
[2019-12-07 17:17] LABS: Quest SARS-CoV-2 RNA DETECTED (NOT DETECTED)
== END 2019-12-06 23:59 | disposition home or self-care (01) ==
LOC: ONCMED 05:32
PROVIDERS: PCP Nurse Practitioner; Visit Provider Internal Medicine Hematology & Oncology
DX: Z51.12 Encounter for antineoplastic immunotherapy (principal); Z51.11 Encounter for antineoplastic chemotherapy; C91.90 Lymphoid leukemia, unspecified not having achieved remission; E04.1 Nontoxic single thyroid nodule; E11.9 Type 2 diabetes mellitus without complications; E87.6 Hypokalemia; N40.0 Benign prostatic hyperplasia without lower urinary tract symptoms; R16.1 Splenomegaly, not elsewhere classified
CPT/HCPCS: 80053; 83036; 85007; 85025; 87635; 96367; 96413; 96415; 96417; 99214; J1100; J1200; J2405; J2469; J7030; J7040; J7050; J9034; J9312

== ENCOUNTER 2019-12-27 06:00 | Outpatient (RCR) | payer MEDICARE, OTHER, SELFPAY ==
[2019-12-27 22:00] LABS: Lactate Dehydrogenase 215 U/L (135-225); Thyroid Stimulating Hormone 0.65 uIU/mL (0.27-4.20)
== END 2019-12-29 14:00 | disposition home or self-care (01) ==
LOC: ONCMED 06:00
PROVIDERS: Nurse Practitioner; PCP Nurse Practitioner; Visit Provider Internal Medicine Hematology & Oncology
DX: C91.10 Chronic lymphocytic leukemia of B-cell type not having achieved remission (principal); R53.83 Other fatigue
CPT/HCPCS: 83615; 84443

== ENCOUNTER → 2019-12-27 11:01 | Outpatient (BNVA) | payer MEDICARE, OTHER, SELFPAY | PROVIDERS: PCP Nurse Practitioner; Visit Provider Nurse Practitioner | DX: U07.1 COVID-19 (principal); J12.89 Other viral pneumonia; R05 Cough; J98.01 Acute bronchospasm; J90 Pleural effusion, not elsewhere classified; E04.9 Nontoxic goiter, unspecified; K80.20 Calculus of gallbladder without cholecystitis without obstruction | CPT/HCPCS: 71046; 80053; 81003; 85025 ==

== ENCOUNTER 2019-12-29 14:47 | Inpatient (IN) | payer MEDICARE, OTHER, SELFPAY ==
[2019-12-29] VITALS (12 sets, daily range): BP systolic 118–138; BP diastolic 65–83; PULSE 91–100; RESP 16–32; TEMP 37.7–39.3; O2SAT 90–96; BMI 28.3
--- NOTE | 2019-12-29 15:46 | XR_ITS ---
WS: [id number] Portable AP upright chest, 12/29/2019 Clinical Data: SOB Comparison: PA and lateral chest, 12/27/2019. Findings: The bilateral opacities have not changed. These are seen best in the lower lobes. Heart is slightly enlarged. The aortic arch and descending aorta show tortuosity. There is a subcutaneous fore ign body overlying the right second rib. No pneumothorax is seen. There are no lung masses. XR/XR chest 1V portable [id number] Impression: 1. Bilateral minimal opacities unchanged. 2. Cardiomegaly and atherosclerosis.
--- NOTE | 2019-12-29 15:48 | W.ED.COVID ---
HPI - COVID General: Chief Complaint: COVID symptoms Stated Complaint: GENERALIZED WEAKNESS/covid 1 month ago Time Seen by Provider: 12/29/19 15:00 Source: patient Mode of arrival: ambulatory Limitations: no limitations Triage information: Has fever, cough or shortness of breath. No known COVID + exposure last 14 days History of Present Illness: HPI Narrative: Patient was diagnosed with COVID-19 about 23 days ago. Patient has a history of leukemia. He states that ever since diagnosis has been feeling unwell with gradually increasing weakness. No nausea or vomiting. He still has increased loss of appetite and about 20 pound weight loss in the last month. He said some about he has had abnormal liver function tests and so his primary care provider wanted him evaluated in the emergency department. He was also hypoxic. MD complaint: known COVID positive COVID 19 common symptoms: positive fever(s), non-productive cough, dyspnea and fatigue; negative chills, productive cough, body aches, headache(s), throat pain, nausea or vomiting COVID Results: SARS-CoV-2 Antigen (Rapid) Positive (Negative) H 12/29/19 20:35 12/29/19 SARS-CoV-2 RNA (RT-PCR) Detected (NOT DETECTED) A 12/06/19 10:03 12/06/19 Review of Systems General: Reports: 10 or more systems reviewed and unremarkable except in HPI and below Const: Reports: fever(s), fatigue and malaise; Denies: chills or body aches Eyes: Denies: change in vision or blurry vision ENMT: Denies: throat pain, enlarged tonsils, odynophagia, hoarseness, mouth pain or swelling of lips/tongue Card: Denies: palpitations, irregular heart rhythm, edema or swelling of feet/ankles Resp: Reports: dyspnea and non-productive cough; Denies: productive cough GI: Denies: abdominal pain, nausea or vomiting : Denies: flank pain, dysuria, urinary frequency, urinary urgency or urinary hesitancy Musc: Denies: neck pain, back pain or extremity swelling Skin/Breast: Denies: rash, pruritus or erythema Neuro: Denies: headache(s), numbness in extremities or weakness in extremities Endo: Denies: polyuria, polydipsia or tired all the time [facility] PFSH: Medical History BPH (benign prostatic hyperplasia) CLL (chronic lymphocytic leukemia) COPD (chronic obstructive pulmonary disease) Dyslipidemia Erectile dysfunction Essential (primary) hypertension High risk medication use NIKIA on CPAP Paroxysmal atrial fibrillation Type 2 diabetes mellitus without complications Urinary hesitancy Surgical History No history of previous surgery Family History Other Cancer Diabetes Social History Smoking and tobacco status: never smoked Second hand smoke exposure: No Smoking risk assessment/counseling performed?: No Alcohol intake: never Desire information about alcohol rehabilitation?: No Counseling given: No Desire information about substance/drug rehabilitation?: No Counseling given: No Adopted: No Caregiver/support person: No Lives independently: Yes Household members: none Housing: House Marital status: / Current occupational status: retired History of recent travel: No Current gender identity: Male Physical Exam Const: COMMON NORMALS: no acute distress, average body habitus, patient oriented x3, no limitations, healthy appearing, alert and well nourished HENMT: COMMON NORMALS: normocephalic, atraumatic and moist oral mucous membranes HEAD & SCALP: normocephalic and atraumatic Eye: COMMON NORMALS: Equal, round and reactive pupils present, EOMs intact bilaterally, conjunctivae normal and no scleral icterus CONJUNCTIVA: Yes conjunctivae normal PUPIL: Yes Equal, round and reactive pupils present Neck/C-Spine: COMMON NORMALS: no meningeal signs and no JVD Resp: COMMON NORMALS: normal respiratory effort, No retractions, No use of accessory muscles, clear to auscultation bilaterally and percussion normal AUSCULTATION: clear to auscultation bilaterally PERCUSSION: percussion normal Cardio: COMMON NORMALS: no JVD, regular rate, regular rhythm, S1 normal heart sound present, S2 normal heart sound present, No gallops present (Cardio), No clicks present (Cardio), No murmurs present (Cardio), No rub (Cardio) and Peripheral pulses 2+ throughout RATE: regular rate RHYTHM: regular rhythm HEART SOUNDS: S1 normal heart sound present and S2 normal heart sound present PERIPHERAL PULSES: Peripheral pulses 2+ throughout GI: COMMON NORMALS: Normal to inspection, nondistended, normoactive bowel sounds present, Soft to palpation, non-tender, No hepatosplenomegaly present, no masses and no bruits PALPATION: Yes Soft to palpation and Yes No hepatosplenomegaly present Extremity: COMMON NORMALS: normal to inspection, full ROM, capillary refill normal, no calf tenderness and no pedal edema Neuro: COMMON NORMALS: patient oriented x3 SENSORIUM/ORIENTATION: Yes alert MENINGEAL SIGNS: Yes no meningeal signs Skin: COMMON NORMALS: no rashes or lesions noted, no wounds, turgor normal, no jaundice, no petechiae and no mottling GENERAL SKIN EXAM: no rashes or lesions noted and turgor normal Course ED course: Patient presenting with shortness of breath, elevated liver enzymes, weight loss, loss of appetite, generalized weakness. Evaluation in the emergency department shows he is still positive for COVID-19, he has elevated liver enzymes with gallstones but no signs of cholecystitis. He was febrile in the ED. He is admitted for further evaluation and management Consultations: Consultation #1: Dr. Álvarez, hospitalist. He kindly accepted the patient to his service Vital Signs: Vital signs: Vital Signs Temperature 102.7 F H 12/29/19 21:51 Pulse Rate 91 12/29/19 22:52 Respiratory Rate 30 H 12/29/19 22:52 Blood Pressure 125/65 12/29/19 22:52 Pulse Oximetry 93 12/29/19 22:52 MDM - COVID MDM Narrative Medical decision making narrative: 69-year-old male, high risk patient with leukemia presents to the emergency department with generalized weakness, shortness of breath, fever. Evaluation shows he is positive for COVID-19, has elevated liver enzymes and gallstones but no evidence of cholecystitis. He was febrile in the emergency department, and because of all these worse decided that he should be admitted to the hospital for further evaluation and management Medical Records Attestation: I reviewed the patient's medical records. Lab Data Attestation: I reviewed the patient's lab results. Result diagrams: 12/29/19 16:17 12/29/19 16:17 Labs: Lab Results 10/23/20 10/23/20 10/23/20 Range/Units 16:17 16:17 16:17 WBC 40.0 H* (4.0-10.0) 10^3/uL RBC 3.74 L (4.1-5.3) 10^6/uL Hgb 10.4 L (11.7-16.6) g/dL Hct 34.5 L (42.0-52.0) % MCV 92.2 (80-94) fL MCH 27.8 L (28.0-34.0) pg MCHC 30.1 (30.0-36.0) g/dL RDW 14.6 (12.1-15.1) % Plt Count 270 (130-400) 10^3/cmm MPV 10.8 H (7.4-10.4) fL Neut % (Auto) 7.2 % Lymph % (Auto) 90.5 % Craven % (Auto) 2.1 % Eos % (Auto) 0.0 % Baso % (Auto) 0.0 % Neut # (Auto) 2.84 (1.8-7.7) 10^3/uL Lymph # (Auto) 36.2 H (0.8-4.8) 10^3/uL Craven # (Auto) 0.8 (0.2-0.9) 10^3/uL Eos # (Auto) 0.0 (0.0-0.8) 10^3/uL Baso # (Auto) 0.0 (0.0-0.1) 10^3/uL Nucleated RBC % (auto) 0 % Nucleated RBCs # 0.0 /100WBC Fibrinogen 730 H (174-498) mg/dL D-Dimer 0.80 H (0-0.59) ug/mIFEU Sodium 132 L (136-145) mmol/L Potassium 4.2 (3.5-5.1) mmol/L Chloride 95 L (98-107) mmol/L Carbon Dioxide 24 (22-29) mmol/L Anion Gap 17.2 (5-19) BUN 15 (8-23) mg/dL Creatinine 1.0 (0.7-1.2) mg/dL GFR Calculation 74.1 L (90-130) mL/min Glucose 115 (65-115) mg/dL Calculated Osmolality 276 L (285-295) mOsm/kg Lactic Acid (0.5-2.2) mmol/L Calcium 9.0 (8.5-10.5) mg/dL Total Bilirubin 0.7 (0.15-1.2) mg/dL AST 141 H (0-40) U/L ALT 164 H (0-41) U/L Alkaline Phosphatase 87 (40-130) IU/L Lactate Dehydrogenase 247 H (135-225) U/L Creatine Kinase 152 (39-308) U/L C-Reactive Protein 108.9 H (0.0-4.9) mg/L Total Protein 7.5 (6.6-8.7) g/dL Albumin 3.2 L (3.5-5.2) g/dL Globulin 4.3 (1.3-4.6) g/dL Procalcitonin 0.29 (0-0.5) ng/mL Influenza Type A Ag (Negative) Influenza Type B Ag (Negative) SARS-CoV-2 Ag (Rapid) (Negative) 12/29/19 12/29/19 12/29/19 Range/Units 16:17 16:33 20:35 WBC (4.0-10.0) 10^3/uL RBC (4.1-5.3) 10^6/uL Hgb (11.7-16.6) g/dL Hct (42.0-52.0) % MCV (80-94) fL MCH (28.0-34.0) pg MCHC (30.0-36.0) g/dL RDW (12.1-15.1) % Plt Count (130-400) 10^3/cmm MPV (7.4-10.4) fL Neut % (Auto) % Lymph % (Auto) % Craven % (Auto) % Eos % (Auto) % Baso % (Auto) % Neut # (Auto) (1.8-7.7) 10^3/uL Lymph # (Auto) (0.8-4.8) 10^3/uL Craven # (Auto) (0.2-0.9) 10^3/uL Eos # (Auto) (0.0-0.8) 10^3/uL Baso # (Auto) (0.0-0.1) 10^3/uL Nucleated RBC % (auto) % Nucleated RBCs # /100WBC Fibrinogen (174-498) mg/dL D-Dimer (0-0.59) ug/mIFEU Sodium (136-145) mmol/L Potassium (3.5-5.1) mmol/L Chloride (98-107) mmol/L Carbon Dioxide (22-29) mmol/L Anion Gap (5-19) BUN (8-23) mg/dL Creatinine (0.7-1.2) mg/dL GFR Calculation (90-130) mL/min Glucose (65-115) mg/dL Calculated Osmolality (285-295) mOsm/kg Lactic Acid 1.1 (0.5-2.2) mmol/L Calcium (8.5-10.5) mg/dL Total Bilirubin (0.15-1.2) mg/dL AST (0-40) U/L ALT (0-41) U/L Alkaline Phosphatase (40-130) IU/L Lactate Dehydrogenase (135-225) U/L Creatine Kinase (39-308) U/L C-Reactive Protein (0.0-4.9) mg/L Total Protein (6.6-8.7) g/dL Albumin (3.5-5.2) g/dL Globulin (1.3-4.6) g/dL Procalcitonin (0-0.5) ng/mL Influenza Type A Ag Negative (Negative) Influenza Type B Ag Negative (Negative) SARS-CoV-2 Ag (Rapid) Positive H (Negative) COVID Results: SARS-CoV-2 Antigen (Rapid) Positive (Negative) H 12/29/19 20:35 12/29/19 SARS-CoV-2 RNA (RT-PCR) Detected (NOT DETECTED) A 12/06/19 10:03 12/06/19 Imaging Data CXR: Attestation: I personally reviewed and interpreted this imaging study as follows: Radiologist's impression: [address] [address] XRay Report Signed Patient: Lb Garcia #: [id number] : 1Acct#:[id number] Age/Sex: 69 / MADM Date: 12/29/19 Loc: ERRoom/Bed: Attending Dr: Ordering Provider/Ordering MD: Azucena Howard MD, [facility] [place] Date of Service: 12/29/19 Procedure(s): XR chest 1V portable [id number] Accession Number(s): [id number] Report Number: [id number] WS: [id number] Portable AP upright chest, 12/29/2019 Clinical Data: SOB Comparison: PA and lateral chest, 12/27/2019. Findings: The bilateral opacities have not changed. These are seen best in the lower lobes. Heart is slightly enlarged. The aortic arch and descending aorta show tortuosity. There is a subcutaneous foreign body overlying the right second rib. No pneumothorax is seen. There are no lung masses. XR/XR chest 1V portable [id number] Impression: 1. Bilateral minimal opacities unchanged. 2. Cardiomegaly and atherosclerosis. Dictated By:Cecilia Stephenson MD Signed By:Cecilia Stephenson MDSigned Date/Time:12/29/191627 DD/ 25 CT Abd/Pel: Attestation: I personally reviewed and interpreted this imaging study as follows: Radiologist's impression: [place] [address] CT Scan Report Signed Patient: Lb Garcia #: [id number] : 1950cct#:[id number] Age/Sex: 69 / MADM Date: 12/29/19 Loc: ERRoom/Bed: Attending Dr: Ordering Provider/Ordering MD: Azucena Howard MD, [facility] [place] Date of Service: 12/29/19 Procedure(s): CT abdomen pelvis w con* [id number] Accession Number(s): [id number] Report Number: [id number] PROCEDURE INFORMATION: Exam: CT Abdomen And Pelvis With Contrast Exam date and time: 12/29/2019 5:29 PM Age: 69 years old Clinical indication: Patient HX: C/O weakness fever loss of appetite wt loss w HX of cll; Additional info: Elevated liver enzymes, fever, loss of appetite TECHNIQUE: Imaging protocol: Computed tomography of the abdomen and pelvis with intravenous contrast. Radiation optimization: All CT scans at this facility use at least one of these dose optimization techniques: automated exposure control; mA and/or kV adjustment per patient size (includes targeted exams where dose is matched to clinical indication); or iterative reconstruction. Contrast material: OMNI 300; Contrast volume: 95 ml; Contrast route: INTRAVENOUS (IV); COMPARISON: CT chest abd pel w con* 05/19/2019 11:09 AM RADIATION DOSE METRICS: Total DLP (mGy-cm): 909.6 FINDINGS: Lungs: Nonspecific ground-glass infiltrates at the lung bases. Liver: The liver is unremarkable in appearance. Gallbladder and bile ducts: 6 mm calcified gallstone in the gallbladder. No gallbladder wall thickening or pericholecystic fluid. No biliary dilatation. Pancreas: The pancreas is normal in appearance. Spleen: There is mild splenomegaly present. The spleen measures 13 cm in length. No focal splenic lesion. Adrenals: The adrenal glands appear within normal limits. Kidneys and ureters: Mild dilated left renal collecting system, unchanged. Right collecting system is unremarkable. No cortical lesions in the kidneys. The ureters appear normal. Stomach and bowel: No acute gastric abnormality demonstrated. The small bowel is unremarkable as demonstrated. Colon is mostly gas-filled with small air-fluid levels. No mural thickening of the colon. Appendix: No evidence of appendicitis. Intraperitoneal space: No pneumoperitoneum. No significant fluid collection. Vasculature: No abdominal aortic aneurysm. Lymph nodes: Shotty bilateral inguinal lymph nodes, measuring up to 1.9 cm. Bilateral external iliac adenopathy measuring up to 2.2 cm in length. Urinary bladder: Unremarkable as visualized. Reproductive: Marked enlargement of the prostate gland. The prostate gland measures 8.1 cm transverse x 7.0 cm AP x 7.9 cm craniocaudal. Bones/joints: Unremarkable. No acute fracture. Soft tissues: Unremarkable. CT/CT abdomen pelvis w con* [id number] IMPRESSION: 1. Marked enlargement of the prostate gland. This is unchanged from 05/19/2019. 2. 6 mm calcified gallstone in the gallbladder. No gallbladder wall thickening or pericholecystic fluid. 3. There is mild splenomegaly present. The spleen measures 13 cm in length. No focal splenic lesion. 4. Shotty bilateral inguinal lymph nodes, measuring up to 1.9 cm. Bilateral external iliac adenopathy measuring up to 2.2 cm in length. Lymph nodes are unchanged from the previous study. 5. Colon is mostly gas-filled with small air-fluid levels. No mural thickening of the colon. The stomach and the small bowel appear unremarkable. 6. Nonspecific ground-glass infiltrates at the lung bases. Consider bibasilar pneumonia clinically. 7. There is no interval change from the prior examination. Radiation Dose CTDIVOL = (mGy): DLP = 909.6 (mGy-cm) Dictated By:Florencio Lorenzo MD Signed By:Florencio Lorenzo MDSigned Date/Time:12/29/191818 DD/ 16 US: Attestation: I personally reviewed and interpreted this imaging study as follows: Radiologist's impression: [address] [place] [address] Ultrasound Report Signed Patient: Lb Garcia #: [id number] : 1Acct#:[id number] Age/Sex: 69 / MADM Date: 12/29/19 Loc: ERRoom/Bed: Attending Dr: Ordering Provider/Ordering MD: Azucena Howard MD, [facility] [place] Date of Service: 12/29/19 Procedure(s): US gall bladder [id number] Accession Number(s): [id number] Report Number: [id number] PROCEDURE INFORMATION: Exam: US Abdomen, Limited; Right Upper Quadrant Exam date and time: 12/29/2019 10:07 PM Age: 69 years old Clinical indication: Abdominal pain; Additional info: Elevated liver enzymes, gall stone TECHNIQUE: Imaging protocol: US abdomen. Real time ultrasound with image documentation. Limited exam focused on the right upper quadrant. COMPARISON: US abdomen complete* [id number] 08/17/2019 9:29 AM FINDINGS: Liver: Mild hepatomegaly. The liver measures 17 cm in length. Slightly coarsened hepatic echotexture. No focal liver lesion. Gallbladder: Gallstones demonstrated in the gallbladder lumen. The gallbladder wall is mildly thickened. No pericholecystic fluid. Common bile duct: No biliary dilatation. The common duct measures 4.5 mm in diameter. Pancreas: Visualized portion of the pancreas is unremarkable. Right kidney: Right kidney measures 12.5 cm in length. Slightly dilated extrarenal pelvis. No cole hydronephrosis. No calculus, cyst, or mass. The right kidney is unchanged from the previous study. Aorta: The aorta is unremarkable as demonstrated. US/US gall bladder [id number] IMPRESSION: 1. Gallstones demonstrated in the gallbladder lumen. The gallbladder wall is mildly thickened. No pericholecystic fluid. No biliary dilatation. The mild gallbladder wall thickening is a new finding when compared to the previous study of 08/17/2019. 2. Slightly dilated extrarenal pelvis noted in the right kidney, unchanged from the previous study. 3. Slightly enlarged liver with coarsened echotexture consistent with mild hepatic steatosis. Dictated By:Florencio Lorenzo MD Signed By:Florencio Lorenzo MDSigned Date/Time:12/29/192234 DD/ 31 Discharge Plan Discharge Patient Disposition: Admitted As Inpatient Admit Provider: Nuvia Álvarez Clinical Impression: COVID-19, CLL (chronic lymphocytic leukemia), Gall bladder stones, Hypoxia Condition: Stable Interventions: ED Discharge Assessment Last Done: 12/29/19 22:52 ED Charges Last Done: 12/29/19 22:52 Discharge Date/Time: 12/29/19 23:20 Coding Level of Care Code ED Explosives Mixer Operator for Chg Fwd Exam Comprehensive
[2019-12-29 16:48] LABS: Hematocrit 34.5 % (42.0-52.0); Hemoglobin 10.4 g/dL (11.7-16.6); Lymphocytes # 36.2 10^3/uL (0.8-4.8); Lymphocytes % 90.5 %; Mean Corpuscular HGB Conc 30.1 g/dL (30.0-36.0); Mean Corpuscular Hemoglobin 27.8 pg (28.0-34.0); Mean Corpuscular Volume 92.2 fL (80-94); Mean Platelet Volume 10.8 fL (7.4-10.4); Monocytes # 0.8 10^3/uL (0.2-0.9); Monocytes % 2.1 %; Neutrophils # 2.84 10^3/uL (1.8-7.7); Neutrophils % 7.2 %; Nucleated Red Blood Cells % 0 %; Platelet Count 270 10^3/cmm (130-400); Red Blood Count 3.74 10^6/uL (4.1-5.3); Red Cell Distribution Width 14.6 % (12.1-15.1)
[2019-12-29 17:07] LABS: Influenza A by IFA Negative (Negative); Influenza B by IFA Negative (Negative)
[2019-12-29 17:12] LABS: Lactic Sepsis W/Reflex 1.1 mmol/L (0.5-2.2)
[2019-12-29 17:13] LABS: Fibrinogen 730 mg/dL (174-498)
[2019-12-29 17:15] LABS: Alanine Aminotransferase 164 U/L (0-41); Albumin Level 3.2 g/dL (3.5-5.2); Alkaline Phosphatase 87 IU/L (40-130); Anion Gap 17.2 (5-19); Aspartate Amino Transferase 141 U/L (0-40); Blood Urea Nitrogen 15 mg/dL (8-23); Carbon Dioxide 24 mmol/L (22-29); Chloride 95 mmol/L (98-107); Creatine Phosphokinase 152 U/L (39-308); Globulin 4.3 g/dL (1.3-4.6); Glomerular Filtration Rate 74.1 mL/min (90-130); Glucose 115 mg/dL (65-115); Lactate Dehydrogenase 247 U/L (135-225); Osmolality Calculated 276 mOsm/kg (285-295); Potassium 4.2 mmol/L (3.5-5.1); Sodium 132 mmol/L (136-145); Total Bilirubin 0.7 mg/dL (0.15-1.2); Total Protein 7.5 g/dL (6.6-8.7)
[2019-12-29 17:21] LABS: Slide Review Slide Review Perform
--- NOTE | 2019-12-29 17:24 | CTR_ITS ---
PROCEDURE INFORMATION: Exam: CT Abdomen And Pelvis With Contrast Exam date and time: 12/29/2019 5:29 PM Age: 69 years old Clinical indication: Patient HX: C/O weakness fever loss of appetite wt loss w HX of cll; Additional info: Elevated liver enzymes, fever, loss of appetite TECHNIQUE: Imaging protocol: Computed tomography of the abdomen and pelvis with intravenous contrast. Radiation optimization: All CT scans at this facility use at least one of these dose optimization techniques: automated exposure control; mA and/or kV adjustment per patient size (includes targeted exams where dose is matched to clinical indication); or iterative reconstruction. Contrast material: OMNI 300; Contrast volume: 95 ml; Contrast route: INTRAVENOUS (IV); COMPARISON: CT chest abd pel w con* 05/19/2019 11:09 AM RADIATION DOSE METRICS: Total DLP (mGy-cm): 909.6 FINDINGS: Lungs: Nonspecific ground-glass infiltrates at the lung bases. Liver: The liver is unremarkable in appearance. Gallbladder and bile ducts: 6 mm calcified gallstone in the gallbladder. No gallbladder wall thickening or pericholecystic fluid. No biliary dilatation. Pancreas: The pancreas is normal in appearance. Spleen: There is mild splenomegaly present. The spleen measures 13 cm in length. No focal splenic lesion. Adrenals: The adrenal glands appear within normal limits. Kidneys and ureters: Mild dilated left renal collecting system, unchanged. Right collecting system is unremarkable. No cortical lesions in the kidneys. The ureters appear normal. Stomach and bowel: No acute gastric abnormality demonstrated. The small bowel is unremarkable as demonstrated. Colon is mostly gas-filled with small air-fluid levels. No mural thickening of the colon. Appendix: No evidence of appendicitis. Intraperitoneal space: No pneumoperitoneum. No significant fluid collection. Vasculature: No abdominal aortic aneurysm. Lymph nodes: Shotty bilateral inguinal lymph nodes, measuring up to 1.9 cm. Bilateral external iliac adenopathy measuring up to 2.2 cm in length. Urinary bladder: Unremarkable as visualized. Reproductive: Marked enlargement of the prostate gland. The prostate gland measures 8.1 cm transverse x 7.0 cm AP x 7.9 cm craniocaudal. Bones/joints: Unremarkable. No acute fracture. Soft tissues: Unremarkable. CT/CT abdomen pelvis w con* [id number] IMPRESSION: 1. Marked enlargement of the prostate gland. This is unchanged from 05/19/2019. 2. 6 mm calcified gallstone in the gallbladder. No gallbladder wall thickening or pericholecystic fluid. 3. There is mild splenomegaly present. The spleen measures 13 cm in length. No focal splenic lesion. 4. Shotty bilateral inguinal lymph nodes, measuring up to 1.9 cm. Bilateral external iliac adenopathy measuring up to 2.2 cm in length. Lymph nodes are unchanged from the previous study. 5. Colon is mostly gas-filled with small air-fluid levels. No mural thickening of the colon. The stomach and the small bowel appear unremarkable. 6. Nonspecific ground-glass infiltrates at the lung bases. Consider bibasilar pneumonia clinically. 7. There is no interval change from the prior examination. Radiation Dose CTDIVOL = (mGy): DLP = 909.6 (mGy-cm)
[2019-12-29 17:42] LABS: Procalcitonin 0.29 ng/mL (0-0.5)
[2019-12-29 17:52] LABS: C Reactive Protein 108.9 mg/L (0.0-4.9)
[2019-12-29] MEDS: iohexol 300 mg/mL 100 mL Btl IV (17:59)
[2019-12-29 21:19] LABS: SARS Covid-2 Antigen Positive (Negative)
--- NOTE | 2019-12-29 21:23 | USR_ITS ---
PROCEDURE INFORMATION: Exam: US Abdomen, Limited; Right Upper Quadrant Exam date and time: 12/29/2019 10:07 PM Age: 69 years old Clinical indication: Abdominal pain; Additional info: Elevated liver enzymes, gall stone TECHNIQUE: Imaging protocol: US abdomen. Real time ultrasound with image documentation. Limited exam focused on the right upper quadrant. COMPARISON: US abdomen complete* [id number] 08/17/2019 9:29 AM FINDINGS: Liver: Mild hepatomegaly. The liver measures 17 cm in length. Slightly coarsened hepatic echotexture. No focal liver lesion. Gallbladder: Gallstones demonstrated in the gallbladder lumen. The gallbladder wall is mildly thickened. No pericholecystic fluid. Common bile duct: No biliary dilatation. The common duct measures 4.5 mm in diameter. Pancreas: Visualized portion of the pancreas is unremarkable. Right kidney: Right kidney measures 12.5 cm in length. Slightly dilated extrarenal pelvis. No cole hydronephrosis. No calculus, cyst, or mass. The right kidney is unchanged from the previous study. Aorta: The aorta is unremarkable as demonstrated. US/US gall bladder [id number] IMPRESSION: 1. Gallstones demonstrated in the gallbladder lumen. The gallbladder wall is mildly thickened. No pericholecystic fluid. No biliary dilatation. The mild gallbladder wall thickening is a new finding when compared to the previous study of 08/17/2019. 2. Slightly dilated extrarenal pelvis noted in the right kidney, unchanged from the previous study. 3. Slightly enlarged liver with coarsened echotexture consistent with mild hepatic steatosis.
--- NOTE | 2019-12-29 21:35 | P.HP_ITS ---
Providers/Chief Complaint Primary Care Provider: DHAVAL GarciaC Chief Complaint: GENERALIZED WEAKNESS History of Present Illness Lb Garcia is a 69 year old male who has history of leukemia, chronic lymphocytic leukemia/small lymphocytic confirmed the flow cytometry on blood on 11/04/2016 currently on bendamustine/Rituxan was held secondary to COVID-19 pneumonia which was diagnosed on 12/06/2019 was called by his primary care physician office for worsening liver enzymes and was asked to go to the ER for further evaluation. Patient is endorsing anorexia, fatigue, lethargy which is worsening, he has lost significant amount of weight, he lives alone and is struggling to cook as well because of lack of appetite and energy. At home he has not noticed any fever but he has been suffering from cough for last 3 weeks. No nausea or vomiting. Because of his lack of eating frequency of bowel movements has decreased as well however when he does go for a bowel movement he notices loose stools. Diagnosis in the ER revealed positive COVID-19 antigen, leukocytosis 40,000, anemia, normal platelet count, hyponatremia 132, normal creatinine, liver enzymes 141 AST ALT 164, LDH 247 procalcitonin normal, CT abdomen revealed gallstones, ultrasound showed gallbladder wall thickening no pericholecystic fluid however mild gallbladder wall thickening is a new finding, I would start him on saline and Zosyn for now, hepatosplenomegaly noted. Patient is endorsing losing 20 pounds in last few Review of Systems Const: Reports: fever(s), chills, body aches, change in appetite, change in weight, fatigue and malaise Eyes: Denies: change in vision ENMT: Denies: throat pain Card: Denies: chest pain Resp: Denies: dyspnea GI: Reports: nausea and diarrhea; Denies: abdominal pain, vomiting or constipation : Denies: flank pain Musc: Denies: neck pain Skin/Breast: Denies: rash Neuro: Denies: headache(s) Psych: Reports: anxiety and irritability Endo: Reports: tired all the time Pascual/Lymph: Denies: easy bruising All/Imm: Denies: urticaria Medications/Allergies Home Medications Medication Instructions Recorded Confirmed Last Taken Type finasteride 5 mg tablet 5 mg PO DAILY #90 tab 10/23/19 12/27/19 Unknown Rx furosemide 20 mg tablet 20 mg PO DAILY #90 tab 10/23/19 12/27/19 Unknown Rx lisinopril 20 mg tablet 20 mg PO DAILY #90 tab 10/23/19 12/27/19 Unknown Rx lovastatin 40 mg tablet 40 mg PO DAILY #90 tab 10/23/19 12/27/19 Unknown Rx apixaban 5 mg tablet 5 mg PO BID #60 tab 11/21/19 12/27/19 Unknown Rx guaifenesin 1,200 mg tablet, 1,200 mg PO Q12H #60 tab 12/15/19 12/27/19 Unknown Rx extended release 12 hr albuterol sulfate 2.5 mg INHALATION Q4H PRN #300 ml 12/27/19 12/27/19 Unknown Rx doxycycline hyclate 100 mg capsule 100 mg PO BID #20 cap 12/27/19 12/27/19 Unknown Rx nebulizers #1 each 12/27/19 12/27/19 Unknown Rx Allergies Allergy/AdvReac Type Severity Reaction Status Date / Time No Known Allergies Allergy Verified 12/29/19 14:57 PFSH Acute PFSH: Medical History BPH (benign prostatic hyperplasia) CLL (chronic lymphocytic leukemia) COPD (chronic obstructive pulmonary disease) Dyslipidemia Erectile dysfunction Essential (primary) hypertension High risk medication use NIKIA on CPAP Paroxysmal atrial fibrillation Type 2 diabetes mellitus without complications Urinary hesitancy Surgical History No history of previous surgery Family History Other Cancer Diabetes Social History Smoking and tobacco status: never smoked Second hand smoke exposure: No Smoking risk assessment/counseling performed?: No Alcohol intake: never Desire information about alcohol rehabilitation?: No Counseling given: No Desire information about substance/drug rehabilitation?: No Counseling given: No Adopted: No Caregiver/support person: No Lives independently: Yes Household members: none Housing: House Marital status: / Current occupational status: retired History of recent travel: No Current gender identity: Male Vitals/I&O/Wt Last Vital Signs Temp 101.2 F H 12/29/19 14:51 Pulse 93 10/23/20 20:00 Resp 16 12/29/19 20:00 BP 133/77 12/29/19 20:00 Pulse Ox 96 12/29/19 20:00 Weight last 48 hrs Weight 89.358 kg Physical Exam Narrative: EXAM NARRATIVE: male, appears more than stated age, dehydrated, disheveled Patient is wearing 4 L nasal cannula supplemental oxygen No active respiratory distress S1, S2 no tachycardia or signs of heart failure Abdomen soft, no signs of peritonitis, Hepatosplenomegaly Lower extremity no edema gangrene ulcer Appropriate mood and affect EOMI, PERRLA No neurological deficit No acute respiratory distress Skin does not show any gangrene or ulcer Data : 12/29/19 16:17 12/29/19 16:17 A&P Assessment and plan (1) Sepsis: Status: Acute (2) COVID-19: Status: Acute (3) Abnormal transaminases: Status: Acute (4) Thickening of wall of gallbladder: Status: Acute Additional A&P Information SARS COVID-19 Currently requiring 2 to 4 L nasal cannula to keep saturation above 90% No use of accessory muscles, no acute respiratory distress I would be reluctant to use bilateral secondary to abnormal transaminases, Procalcitonin normal, His last chemotherapy session was 2 months ago I would only use Decadron for now Sepsis Source is most likely cholecystitis Sepsis criteria met with fever, tachypnea, leukocytosis Gallbladder wall thickening with gallstones AST ALT has increased from baseline Stop atorvastatin No liver metastases CT and ultrasound abdomen results reviewed I will start him on Zosyn, hydrate with fluids, keep him n.p.o. A. fib without RVR We will switch his anticoagulant agent to Lovenox because he will be n.p.o. No tachyarrhythmia Acute hypoxic respiratory failure with underlying COPD due to COVID-19 Will need home O2 evaluation before discharge BPH: Creatinine normal, monitor urine output on daily basis, Goals of care discussed with the patient, DNR/DNI N.p.o. DVT prophylaxis not needed currently he is on Eliquis Attestations Medical Necessity Statement*: Anticipating stay in the hospital cross more than 2 midnights, septic with possible cholecystitis and COVID-19 hypoxic respiratory failure Time Spent in Patient Care: (>than 50% of time spent in counselling and/or direct pt care on unit) . 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
--- NOTE | 2019-12-29 21:45 | PC.NURSE ---
Patient oxygen saturation dropped to 86% on 2L via nasal cannula. Oxygen increased to 4L via nasal cannula.
[2019-12-30] VITALS (27 sets, daily range): BP systolic 96–151; BP diastolic 58–94; PULSE 66–98; RESP 17–35; TEMP 37–37.4; O2SAT 78–97
[2019-12-30 00:32] LABS: NT Pro B Type Natriuretic Pept 147 pg/mL (0-125)
[2019-12-30] MEDS: piperacillin-tazobactam 3.375 GM in sodium chloride 0.9% (plus) 50 ML IV ×2 (01:29→07:40)
[2019-12-30] MEDS: dextrose 5%-sod chloride 0.9% 1,000 ML 75 ML IV ×2 (01:41→13:29)
[2019-12-30 03:26] LABS: Hematocrit 32.6 % (42.0-52.0); Hemoglobin 9.8 g/dL (11.7-16.6); Lymphocytes % 90.2 %; Mean Corpuscular HGB Conc 30.1 g/dL (30.0-36.0); Mean Corpuscular Hemoglobin 27.9 pg (28.0-34.0); Mean Corpuscular Volume 92.9 fL (80-94); Mean Platelet Volume 10.7 fL (7.4-10.4); Monocytes # 0.8 10^3/uL (0.2-0.9); Monocytes % 2.1 %; Neutrophils # 2.72 10^3/uL (1.8-7.7); Neutrophils % 7.5 %; Nucleated Red Blood Cells % 0 %; Platelet Count 248 10^3/cmm (130-400); Red Blood Count 3.51 10^6/uL (4.1-5.3); Red Cell Distribution Width 14.8 % (12.1-15.1)
[2019-12-30 03:33] LABS: White Blood Count 36.6 10^3/uL (4.0-10.0)
[2019-12-30 03:46] LABS: Alanine Aminotransferase 153 U/L (0-41); Albumin Level 2.8 g/dL (3.5-5.2); Alkaline Phosphatase 75 IU/L (40-130); Aspartate Amino Transferase 126 U/L (0-40); Blood Urea Nitrogen 15 mg/dL (8-23); Calcium 8.7 mg/dL (8.5-10.5); Carbon Dioxide 22 mmol/L (22-29); Chloride 99 mmol/L (98-107); Creatinine Clr Calc Pharmacy 87.1538; Globulin 3.8 g/dL (1.3-4.6); Glomerular Filtration Rate 83.7 mL/min (90-130); Glucose 119 mg/dL (65-115); Osmolality Calculated 280 mOsm/kg (285-295); Sodium 134 mmol/L (136-145); Total Bilirubin 0.7 mg/dL (0.15-1.2); Total Protein 6.6 g/dL (6.6-8.7)
[2019-12-30 04:19] LABS: C Reactive Protein 102.7 mg/L (0.0-4.9)
[2019-12-30 07:30] LABS: Glucose Point of Care 108 mg/dL (70-110)
[2019-12-30] MEDS: ketorolac 30 mg/mL INJ 15 MG IVP (07:41)
[2019-12-30] MEDS: finasteride 5 mg Tablet PO (07:41)
[2019-12-30] MEDS: dexamethasone 4 mg/mL INJ 6 MG IVP (09:33)
[2019-12-30] MEDS: enoxaparin 100 mg/mL Syringe 90 MG SUBCUT ×2 (09:34→21:24)
[2019-12-30 11:20] LABS: Glucose Point of Care 112 mg/dL (70-110)
[2019-12-30 15:00] LABS: Alanine Aminotransferase 134 U/L (0-41); Albumin Level 2.6 g/dL (3.5-5.2); Alkaline Phosphatase 66 IU/L (40-130); Anion Gap 13.2 (5-19); Aspartate Amino Transferase 125 U/L (0-40); Blood Urea Nitrogen 12 mg/dL (8-23); Calcium 7.3 mg/dL (8.5-10.5); Carbon Dioxide 21 mmol/L (22-29); Chloride 107 mmol/L (98-107); Globulin 3.2 g/dL (1.3-4.6); Glomerular Filtration Rate 111.8 mL/min (90-130); Glucose 164 mg/dL (65-115); Osmolality Calculated 287 mOsm/kg (285-295); Potassium 4.2 mmol/L (3.5-5.1); Sodium 137 mmol/L (136-145); Total Bilirubin 0.5 mg/dL (0.15-1.2); Total Protein 5.8 g/dL (6.6-8.7)
[2019-12-30 16:29] LABS: Glucose Point of Care 161 mg/dL (70-110)
[2019-12-30 21:38] LABS: Glucose Point of Care 141 mg/dL (70-110)
--- NOTE | 2019-12-30 21:56 | P.PN_ITS ---
Subjective Subjective: Interval history: Patient was not in acute distress.He was complaining of Generalized weakness and fatigue.He denied any abdominal pain,nausea,vomiting today.Has remained afebrile and is currently saturating above 90 % on 2l oxygen via NC Medications: Reviewed: Yes Vitals/I&O/Wt Last Vital Signs Temp 98.8 F 12/30/19 17:49 Pulse 71 12/30/19 16:00 Resp 21 H 12/30/19 17:00 BP 130/81 12/30/19 17:00 Pulse Ox 94 12/30/19 17:00 12/30/19 12/30/19 12/30/19 06:59 14:59 22:59 Intake Total 1984 450 / 2435 Output Total 450 / 450 450 / 450 Balance -450 / -450 1535 / 1535 / 1984 Weight last 48 hrs Weight 89.358 kg Physical Exam Const: COMMON NORMALS: patient oriented x3 HENMT: COMMON NORMALS: normocephalic, atraumatic, hearing grossly normal bilaterally and external ears normal HEAD & SCALP: normocephalic and atraumatic EXTERNAL EAR: Yes external ears normal Eye: COMMON NORMALS: no scleral icterus GENERAL EYE: appearance normal, both eyes and all related structures Chest: COMMONS NORMALS: normal inspection of the chest and normal palpation of entire chest wall CHEST: Yes Symmetrical chest wall rise Resp: COMMON NORMALS: normal respiratory effort, No retractions, No use of accessory muscles and clear to auscultation bilaterally EFFORT & INSPECTION: Yes symmetric chest movement AUSCULTATION: clear to auscultation bilaterally Cardio: COMMON NORMALS: regular rate, regular rhythm, S1 normal heart sound present, S2 normal heart sound present, No gallops present (Cardio), No murmurs present (Cardio), No rub (Cardio) and Peripheral pulses 2+ throughout RATE: regular rate RHYTHM: regular rhythm HEART SOUNDS: S1 normal heart sound present and S2 normal heart sound present PERIPHERAL PULSES: Peripheral pulses 2+ throughout GI: COMMON NORMALS: Normal to inspection, nondistended, normoactive bowel sounds present, Soft to palpation, non-tender, No hepatosplenomegaly present and no masses AUSCULTATION: Yes normoactive bowel sounds PALPATION: Yes Soft to palpation and Yes No hepatosplenomegaly present RECTAL EXAM: Yes deferred Extremity: COMMON NORMALS: no clubbing, cyanosis or edema and no pedal edema Neuro: COMMON NORMALS: patient oriented x3 Data : 12/30/19 03:15 12/30/19 14:25 Micro: Microbiology 12/29/19 01:15 Blood Culture - Preliminary Blood SPECIMEN COLLECTED 12/29/19 01:00 Blood Culture - Preliminary Blood SPECIMEN COLLECTED A&P Assessment and plan (1) Sepsis: Status: Acute (2) COVID-19: Status: Acute (3) Abnormal transaminases: Status: Acute (4) Thickening of wall of gallbladder: Status: Acute Additional A&P Information #Sepsis 2/2 to COVID PNA: On admission Patient had fever, tachypnea, leukocytosis. Lactic acid:1.1 Procalcitonin:0.29 Will continue Vancomycin and imipenam Continue Decadron 6 mg I.V daily Suplemental Oxygen as needed to maintain saturation greater then 90% Currently requiring 2 to 4 L nasal cannula to keep saturation above 90% No use of accessory muscles, no acute respiratory distress Remdesivir on hold due to abnormal transaminases His last chemotherapy session was 2 months ago #Acute hypoxic respiratory failure with underlying COPD due to COVID-19 Will need home O2 evaluation before discharge #Cholelethiasis Gallbladder wall thickening with gallstones. [place] sign negative No concern for Ascending cholengitis or Ac Cholecystytis No liver metastases CT and ultrasound abdomen results reviewed Continue Vancomycin and Imipenam Start Clear liquid diet,advance as tolerated A. fib without RVR rate controlled. Currently on Lovenox 80 mg q12 h daily. 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
[2019-12-31] VITALS (28 sets, daily range): BP systolic 107–149; BP diastolic 55–84; PULSE 63–122; RESP 17–34; TEMP 35.9–36.4; O2SAT 76–96
[2019-12-31] MEDS: dextrose 5%-sod chloride 0.9% 1,000 ML 75 ML IV ×2 (06:28→21:10)
[2019-12-31 08:48] LABS: Glucose Point of Care 160 mg/dL (70-110)
[2019-12-31] MEDS: apixaban 5 mg Tablet PO ×2 (09:35→17:52)
[2019-12-31] MEDS: finasteride 5 mg Tablet PO (09:35)
[2019-12-31] MEDS: dexamethasone 4 mg/mL INJ 6 MG IVP (09:36)
[2019-12-31] MEDS: albuterol 8 gm MDI 2 PUFF INHALATION ×3 (09:50→19:56)
[2019-12-31 11:28] LABS: Vancomycin Trough 10.2 ug/mL (10-15)
[2019-12-31 11:54] LABS: Glucose Point of Care 124 mg/dL (70-110)
[2019-12-31 13:00] LABS: Basophils % 0.1 %; Hemoglobin 9.4 g/dL (11.7-16.6); Lymphocytes # 34.9 10^3/uL (0.8-4.8); Lymphocytes % 90.8 %; Mean Corpuscular HGB Conc 30.3 g/dL (30.0-36.0); Mean Corpuscular Hemoglobin 28.1 pg (28.0-34.0); Mean Corpuscular Volume 92.8 fL (80-94); Mean Platelet Volume 11.4 fL (7.4-10.4); Monocytes # 0.5 10^3/uL (0.2-0.9); Monocytes % 1.2 %; Neutrophils # 2.92 10^3/uL (1.8-7.7); Neutrophils % 7.6 %; Nucleated Red Blood Cells % 0 %; Platelet Count 239 10^3/cmm (130-400); Red Blood Count 3.34 10^6/uL (4.1-5.3); Red Cell Distribution Width 14.6 % (12.1-15.1)
[2019-12-31 13:10] LABS: Fibrinogen 640 mg/dL (174-498)
[2019-12-31 13:14] LABS: Alanine Aminotransferase 216 U/L (0-41); Albumin Level 2.7 g/dL (3.5-5.2); Alkaline Phosphatase 88 IU/L (40-130); Anion Gap 14.2 (5-19); Aspartate Amino Transferase 257 U/L (0-40); Blood Urea Nitrogen 10 mg/dL (8-23); Calcium 8.4 mg/dL (8.5-10.5); Carbon Dioxide 24 mmol/L (22-29); Chloride 101 mmol/L (98-107); Globulin 3.8 g/dL (1.3-4.6); Glomerular Filtration Rate 74.1 mL/min (90-130); Glucose 178 mg/dL (65-115); Osmolality Calculated 283 mOsm/kg (285-295); Potassium 4.2 mmol/L (3.5-5.1); Sodium 135 mmol/L (136-145); Total Bilirubin 0.6 mg/dL (0.15-1.2); Total Protein 6.5 g/dL (6.6-8.7)
[2019-12-31 13:33] LABS: D Dimer 0.77 ug/mIFEU (0-0.59)
[2019-12-31 13:40] LABS: Slide Review Slide Review Perform
[2019-12-31 13:41] LABS: White Blood Count 38.4 10^3/uL (4.0-10.0)
--- NOTE | 2019-12-31 14:45 | PC.NURSE ---
received Critical lab value of 38.4 WBC. Alerted Patient's nurse.
[2019-12-31 17:33] LABS: Glucose Point of Care 208 mg/dL (70-110)
[2019-12-31 20:42] LABS: Glucose Point of Care 146 mg/dL (70-110)
--- NOTE | 2019-12-31 21:44 | PM.PN ---
Subjective Subjective: Interval history: was felling much better this morning.He has not complained of any abdominal pain,nausea,vomiting, diarrhea,urinary problems. Vitals and labs have been reviewed. Medications: Reviewed: Yes Vitals/I&O/Wt Last Vital Signs Temp 96.7 F L 12/31/19 19:00 Pulse 67 12/31/19 19:57 Resp 18 12/31/19 19:57 BP 113/70 12/31/19 19:00 Pulse Ox 96 12/31/19 19:57 12/31/19 12/31/19 12/31/19 06:59 14:59 22:59 Intake Total 1450 / 4085 820 / 820 1335 / 2155 Output Total 900 / 2250 225 / 225 1750 / 1975 Balance 550 / 1835 595 / 595 -415 / 180 Physical Exam Const: COMMON NORMALS: patient oriented x3 HENMT: COMMON NORMALS: normocephalic and atraumatic HEAD & SCALP: normocephalic and atraumatic Eye: COMMON NORMALS: no scleral icterus GENERAL EYE: appearance normal, both eyes and all related structures Chest: COMMONS NORMALS: normal inspection of the chest and normal palpation of entire chest wall CHEST: Yes Symmetrical chest wall rise Resp: COMMON NORMALS: normal respiratory effort, No retractions, No use of accessory muscles and clear to auscultation bilaterally EFFORT & INSPECTION: Yes symmetric chest movement AUSCULTATION: clear to auscultation bilaterally Cardio: COMMON NORMALS: regular rate, regular rhythm, S1 normal heart sound present, S2 normal heart sound present, No gallops present (Cardio), No murmurs present (Cardio), No rub (Cardio) and Peripheral pulses 2+ throughout RATE: regular rate RHYTHM: regular rhythm HEART SOUNDS: S1 normal heart sound present and S2 normal heart sound present PERIPHERAL PULSES: Peripheral pulses 2+ throughout GI: COMMON NORMALS: Normal to inspection, nondistended, normoactive bowel sounds present, Soft to palpation, non-tender, No hepatosplenomegaly present and no masses AUSCULTATION: Yes normoactive bowel sounds PALPATION: Yes Soft to palpation and Yes No hepatosplenomegaly present RECTAL EXAM: Yes deferred Extremity: COMMON NORMALS: no clubbing, cyanosis or edema and no pedal edema Neuro: COMMON NORMALS: patient oriented x3 Data : 01/01/20 03:45 01/01/20 03:45 Micro: Microbiology 12/29/19 01:15 Blood Culture - Preliminary Blood NEGATIVE TO DATE 12/29/19 01:00 Blood Culture - Preliminary Blood NEGATIVE TO DATE A&P Assessment and plan (1) Sepsis: Status: Acute (2) COVID-19: Status: Acute (3) Abnormal transaminases: Status: Acute (4) Thickening of wall of gallbladder: Status: Acute Additional A&P Information #Sepsis 2/2 to COVID PNA: On admission Patient had fever, tachypnea, leukocytosis. Lactic acid:1.1 Procalcitonin:0.29 Will continue Vancomycin and imipenam Continue Decadron 6 mg I.V daily Suplemental Oxygen as needed to maintain saturation greater then 90% Currently requiring 2 to 4 L nasal cannula to keep saturation above 90% Remdesivir on hold due to abnormal transaminases His last chemotherapy session was 2 months ago #Acute hypoxic respiratory failure with underlying COPD due to COVID-19 Plan as 1 #Cholelethiasis [place] sign negative No concern for Ascending cholengitis or Ac Cholecystytis No liver metastases CT and ultrasound abdomen results reviewed:No CBD Dilatation Continue Vancomycin and Imipenam Tolerating diet well #Abnormal Transaminases:Likely 2/2 to medications Monitor LFT Follow Hepatitis Panel HIV Less likelihood of portal vein thrombosis. #A. fib : Currently rate controlled. On Eliquis 5 mg q12 h daily #BPH: Creatinine normal, monitor urine output on daily basis, #Goals of care discussed with the patient, DNR/DNI #DVT prophylaxis :On Eliquis #Disposition : Home.Anticipated DC by Wednesday Attestations Medical Necessity Statement*: Patient needs to be in hospital for management sepsis 2/2 to COVID PNA Coding Level of Care Code Acute Medical Record Specialist for [facility] Fwd Diagnoses Sepsis A41.9 COVID-19 U07.1 Abnormal transaminases R74.8 Thickening of wall of gallbladder K82.8
[2020-01-01] VITALS (34 sets, daily range): BP systolic 113–158; BP diastolic 57–89; PULSE 63–131; RESP 16–39; TEMP 36.9–39.7; O2SAT 74–95
[2020-01-01] MEDS: ketorolac 30 mg/mL INJ 15 MG IVP (04:09)
[2020-01-01 04:33] LABS: Basophils % 0.1 %; Hematocrit 35.4 % (42.0-52.0); Hemoglobin 10.3 g/dL (11.7-16.6); Lymphocytes # 54.5 10^3/uL (0.8-4.8); Lymphocytes % 93.5 %; Mean Corpuscular HGB Conc 29.1 g/dL (30.0-36.0); Mean Corpuscular Hemoglobin 27.7 pg (28.0-34.0); Mean Corpuscular Volume 95.2 fL (80-94); Monocytes # 0.5 10^3/uL (0.2-0.9); Monocytes % 0.8 %; Neutrophils # 3.13 10^3/uL (1.8-7.7); Neutrophils % 5.3 %; Nucleated Red Blood Cells % 0 %; Platelet Count 300 10^3/cmm (130-400); Red Blood Count 3.72 10^6/uL (4.1-5.3); Red Cell Distribution Width 14.6 % (12.1-15.1)
[2020-01-01 04:46] LABS: White Blood Count 58.3 10^3/uL (4.0-10.0)
[2020-01-01 04:55] LABS: Alanine Aminotransferase 218 U/L (0-41); Albumin Level 2.9 g/dL (3.5-5.2); Alkaline Phosphatase 84 IU/L (40-130); Aspartate Amino Transferase 198 U/L (0-40); Blood Urea Nitrogen 9 mg/dL (8-23); Calcium 8.7 mg/dL (8.5-10.5); Carbon Dioxide 23 mmol/L (22-29); Chloride 103 mmol/L (98-107); Globulin 3.9 g/dL (1.3-4.6); Glomerular Filtration Rate 95.8 mL/min (90-130); Glucose 88 mg/dL (65-115); Osmolality Calculated 288 mOsm/kg (285-295); Sodium 140 mmol/L (136-145); Total Bilirubin 0.6 mg/dL (0.15-1.2); Total Protein 6.8 g/dL (6.6-8.7)
[2020-01-01 04:59] LABS: Anion Gap 18.2 (5-19); Potassium 4.2 mmol/L (3.5-5.1)
[2020-01-01 05:42] LABS: HIV 1 & 2 Antibody Non-Reactive (Non-Reactiv); HIV 1 & 2 Antigen Non-Reactive (Non-Reactiv)
--- NOTE | 2020-01-01 06:00 | XR_ITS ---
WS: [id number] Exam: XR chest 1V portable [id number] Date/Time of Exam: 01/01/2020 6:00 AM Reason For Exam: pna Findings: Comparison 12/29/2019. Increasing bilateral patchy pulmonary opacities are noted. The lungs remain fully inflated. Normal ca rdiomediastinal structures and bony elements. No pleural effusions. Monitoring leads superimpose the chest. XR/XR chest 1V portable [id number] IMPRESSION: 1. Increasing infiltrates throughout both lungs since prior study.
--- NOTE | 2020-01-01 06:39 | PC.NURSE ---
Patient spiked a fever in the cad librarian hours about 4 a.m. Provider notified and orders recieved. No order for blood cultures at this time as patient just had cultures drawn on the . Patient given toradol IVP 15 mg and fever came down to 98.9. Patient voicing no concerns at this time. Will continue to monitor and assist as needed folllowing CPOC
[2020-01-01 07:01] LABS: Hepatitis B Surface Antigen Non-Reactive (Nonreactive); Hepatitis C Virus Antibody Non-Reactive (Nonreactive)
[2020-01-01 07:02] LABS: Acetaminophen < 5.0 ug/mL (10-30)
[2020-01-01 08:01] LABS: Glucose Point of Care 108 mg/dL (70-110)
[2020-01-01] MEDS: albuterol 8 gm MDI 2 PUFF INHALATION ×3 (08:18→20:22)
[2020-01-01] MEDS: apixaban 5 mg Tablet PO ×2 (08:50→17:36)
[2020-01-01] MEDS: dexamethasone 4 mg/mL INJ 6 MG IVP (08:50)
[2020-01-01] MEDS: finasteride 5 mg Tablet PO (08:50)
--- NOTE | 2020-01-01 09:57 | PC.NURSE ---
called store room for D5NS bags.
--- NOTE | 2020-01-01 10:06 | DCPLANNER ---
Pg 2 of updated and reviewed with pt - [phone]. No questions, we will get a copy to him a.s.a.p.
[2020-01-01 10:34] LABS: Glucose Point of Care 126 mg/dL (70-110)
--- NOTE | 2020-01-01 10:34 | PC.NURSE ---
Oral Temp-99.9 Pt is resting and denies any pain or discomfort. removed extra blanket on top of pt. will monitor.
--- NOTE | 2020-01-01 11:02 | PC.RESP ---
PULMONARY REHAB INFORMATION SENT TO PATIENT.
[2020-01-01] MEDS: dextrose 5%-sod chloride 0.9% 1,000 ML 75 ML IV (11:41)
--- NOTE | 2020-01-01 12:21 | PC.NURSE ---
Pt is alert oriented, awake He stated, I'm feeling better today. Pt denies any pain or discomfort. Febrile oral 100.8 F. He stated he has hx of leukemia. Will monitor. notified via telephone.
--- NOTE | 2020-01-01 14:24 | PC.NURSE ---
oral temp- 99.6 pt requested for ice elke soda. denies any pain or discomfort.
--- NOTE | 2020-01-01 15:08 | PM.PN ---
Subjective Subjective: Interval history: Febrile with a T-max of 103.4 this morning, otherwise hemodynamically stable, on 2 L nasal cannula, significant increase in white count part of which is likely due to steroids. Remains on IV steroids, IV antibiotics. Noted continued elevation in LFTs, no remdesivir. Had 1300 mL urine output overnight. Just positioned in recliner, desaturated and tachycardic. Actively coughing after using IS and acapella. Medications: Reviewed: Yes Medication Review Details: Active Medications Generic Name Dose Route Start Last Admin Trade Name Freq PRN Reason Stop Dose Admin Albuterol Sulfate 2 puff 12/29/19 23:49 01/01/20 08:18 Ventolin INHALATION 2 puff Q4H.RESPIRATORY P RN Administration SHORTNESS OF LILIA TH Apixaban 5 mg 12/31/19 09:00 01/01/20 08:50 Eliquis PO 5 mg BID ROWAN Administration Dexamethasone 6 mg 12/30/19 08:45 01/01/20 08:50 Decadron IVP 6 mg Q24H ROWAN Administration Dextrose 25 ml 12/29/19 23:49 D50w IVP ONCE PRN hypoglycemia prot ocol Protocol Dextrose 50 ml 12/29/19 23:49 D50w IVP PRN PRN hypoglycemia prot ocol Protocol Finasteride 5 mg 12/30/19 09:00 01/01/20 08:50 Proscar PO 5 mg DAILY ROWAN Administration Glucagon 1 mg 12/29/19 23:49 Glucagen IM ONCE PRN Adult Acute Hypog lycemia Prot. Protocol Dextrose 500 mls @ 100 mls /hr 12/29/19 23:49 D5w IV ONCE PRN Adult Acute Hypog lycemia Prot Protocol Dextrose/Sodium Ch loride 1,000 mls @ 75 ml s/hr 12/29/19 23:49 01/01/20 11:41 Dextrose 5%-Sod Chloride 0.9% IV 75 mls/hr .[id number] ROWAN Administration Imipenem/Cilastati n Sodium 250 100 mls @ 200 mls /hr 12/30/19 09:00 01/01/20 14:15 mg/ Sodium Chlor bryon IV 200 mls/hr Q6H ROWAN Administration Protocol Vancomycin HCl 1,5 00 mg/ 250 mls @ 250 mls /hr 12/30/19 10:00 01/01/20 11:53 Sodium Chloride IV Infused Q12H [facility] Infusion Protocol Insulin Aspart 0 unit 12/30/19 08:00 01/01/20 11:10 Novolog SUBCUT Not Given WM&BEDTIME [facility] Protocol No Known Allergies Allergy (Verified 12/29/19 14:57) Vitals/I&O/Wt Last Vital Signs Temp 99.6 F 01/01/20 14:00 Pulse 92 01/01/20 14:25 Resp 33 H 01/01/20 14:25 BP 125/65 01/01/20 14:25 Pulse Ox 93 01/01/20 14:25 01/01/20 01/01/20 01/01/20 06:59 14:59 22:59 Intake Total 400 / 3285 2169 / 2169 Output Total 800 / 3275 1040 / 1040 Balance -400 / 10 1129 / 1129 Physical Exam Const: COMMON NORMALS: no acute distress, patient oriented x3 and alert GENERAL APPEARANCE: cooperative, comfortable and ill appearing ORIENTATION/CONSCIOUSNESS: Yes awake OTHER: -fatigued HENMT: COMMON NORMALS: normocephalic, atraumatic, hearing grossly normal bilaterally and moist oral mucous membranes HEAD & SCALP: normocephalic and atraumatic Eye: COMMON NORMALS: Equal, round and reactive pupils present, EOMs intact bilaterally and conjunctivae normal CONJUNCTIVA: Yes conjunctivae normal PUPIL: Yes Equal, round and reactive pupils present Neck/C-Spine: COMMON NORMALS: full ROM GENERAL: Yes normal visual inspection and Yes trachea midline Resp: COMMON NORMALS: normal respiratory effort, No retractions and No use of accessory muscles EFFORT & INSPECTION: Yes able to speak in complete sentences, Yes symmetric chest movement, Yes tachypneic and Yes Actively coughing AUSCULTATION: rhonchi OTHER: -on 6 L NC Cardio: COMMON NORMALS: regular rhythm, S1 normal heart sound present, S2 normal heart sound present and No murmurs present (Cardio) RATE: tachycardic RHYTHM: regular rhythm HEART SOUNDS: S1 normal heart sound present and S2 normal heart sound present GI: COMMON NORMALS: Normal to inspection, nondistended, normoactive bowel sounds present, Soft to palpation and non-tender PALPATION: Yes Soft to palpation Extremity: COMMON NORMALS: normal to inspection, full ROM and no clubbing, cyanosis or edema; negative for no pedal edema Neuro: COMMON NORMALS: patient oriented x3, moves all extremities, no focal motor deficits and no sensory deficits noted SENSORIUM/ORIENTATION: Yes alert Psych: COMMON NORMALS: mental status grossly normal, Normal thought process present, cooperative, normal affect and speech normal SPEECH: Yes normal speech THOUGHT PROCESS: Normal thought process present Skin: COMMON NORMALS: no rashes or lesions noted, no jaundice, no petechiae and no mottling GENERAL SKIN EXAM: no rashes or lesions noted Data : 01/01/20 03:45 01/01/20 03:45 A&P Assessment and plan (1) COVID-19: -Noted to have COVID-19 pneumonia in setting of underlying immunocompromise secondary to CLL, on current treatment -Secondary to abnormal transaminases, no remdesivir -Continue IV steroids, empiric antibiotic therapy, supportive care -Spiked high-grade temps this morning with T-max of 103.4 F, continue to monitor vital signs -Continue supplemental oxygen as needed, not oxygen dependent at baseline, home oxygen evaluation prior to discharge if appropriate -Consider CT chest due to noted increased infiltrates on repeat imaging, underlying immunocompromise and low threshold for developing ARDS -continue to trend inflammatory markers -blood cx: prelim negative Status: Acute (2) Abnormal transaminases: -Likely medication induced versus related to COVID-19 infection -Negative hepatitis, HIV -Imaging noted including gallbladder ultrasound, abdominal CT which showed presence of gallstones, mild hepatic steatosis -Continue to trend LFTs Status: Acute (3) CLL (chronic lymphocytic leukemia): -Follows up with oncology Dr. Plaza -Has been on treatment with bendamustine, Rituxan; last dose was in November -Noted significant leukocytosis part of which is steroid-induced Status: Chronic (4) Essential (primary) hypertension: -Continue to monitor vital signs Status: Chronic (5) Type 2 diabetes mellitus without complications: -A1c-5.8 (11/2019) -Accucheks, ISS Status: Chronic Qualifiers: Diabetes mellitus retirement insulin use: without ocean transportation intermediary use Qualified Code(s): E11.9 - Type 2 diabetes mellitus without complications (6) NIKIA on CPAP: Status: Chronic (7) BPH (benign prostatic hyperplasia): -noted enlarged prostate on imaging -continue finasteride -follows up with Dr. Chowdary Status: Chronic Qualifiers: Lower urinary tract symptom presence: symptoms absent Qualified Code(s): N40.0 - Benign prostatic hyperplasia without lower urinary tract symptoms (8) Paroxysmal atrial fibrillation: -noted to have a short run of atrial fibrillation on Holter monitor -has been following up with Dr. Murillo -Selina (08/2019): EF=60%, G1DD, trace MT, trace MR -no AC due to previously noted thrombocytopenia, chemotherapy; on Eliquis here -telemetry monitoring Status: Acute (9) Dyslipidemia: -statin on hold Status: Chronic Additional A&P Information -regular diet as tolerated -GI ppx with famotidine -DVT ppx not needed as on Eliquis -Dispo: home, lives alone -Code status: DNR/DNI Attestations Medical Necessity Statement*: Patient requires hospitalization for continued treatment of COVID-19 pneumonia with underlying immunocompromise secondary to CLL, noted elevated liver function tests. Time Spent in Patient Care: Greater than 35 minutes (>than 50% of time spent in counselling and/or direct pt care on unit). Coding Level of Care Code Acute Voltage Inspector for Chg Fwd Exam Comprehensive Diagnoses COVID-19 U07.1 Abnormal transaminases R74.8 CLL (chronic lymphocytic leukemia) C91.10 Essential (primary) hypertension I10 Type 2 diabetes mellitus without complications E11.9 Diabetes mellitus retirement insulin use: without ocean transportation intermediary use NIKIA on CPAP G47.33; Z99.89 BPH (benign prostatic hyperplasia) N40.0 Lower urinary tract symptom presence: symptoms absent Paroxysmal atrial fibrillation I48.0 Dyslipidemia E78.5
--- NOTE | 2020-01-01 16:00 | PC.NURSE ---
Pt assisted to sit up and ambulate in room Pt noted to desaturate between 84-86% getting up from bed to chair. HR-100s to 120s. Pt persistently coughs. RT and Dr in room during this activity. Oxygen increase to 6 L/min. SpO2 increase to 92%-93%. Pt assisted to walk around the room. Noted to have unsteady gait during activity. Bed linens changed. Washed face and neck. Pt refused sponge due to feeling of coldness. T-99.8. Received verbal order read back from doctor to give tylenol 650 mg. med given.
[2020-01-01] MEDS: acetaminophen 325 mg Tablet 650 MG PO (16:27)
[2020-01-01 17:01] LABS: Glucose Point of Care 124 mg/dL (70-110)
--- NOTE | 2020-01-01 18:35 | PC.NURSE ---
Oral Temp recheck post Tylenol-98.5 F. SpO2-93 to 94% on 3 L/min. Hr-85.
[2020-01-01 20:25] LABS: Glucose Point of Care 140 mg/dL (70-110)
[2020-01-01] MEDS: ibuprofen 600 mg Tablet PO (23:38)
[2020-01-02] VITALS (61 sets, daily range): BP systolic 71–173; BP diastolic 51–132; PULSE 66–165; RESP 17–47; TEMP 36.6–39.6; O2SAT 79–100
[2020-01-02 02:38] LABS: Fibrinogen 592 mg/dL (174-498)
[2020-01-02 02:41] LABS: D Dimer 1.31 ug/mIFEU (0-0.59)
[2020-01-02 02:45] LABS: Alanine Aminotransferase 156 U/L (0-41); Albumin Level 2.6 g/dL (3.5-5.2); Alkaline Phosphatase 70 IU/L (40-130); Aspartate Amino Transferase 122 U/L (0-40); Blood Urea Nitrogen 11 mg/dL (8-23); Calcium 7.9 mg/dL (8.5-10.5); Carbon Dioxide 24 mmol/L (22-29); Chloride 101 mmol/L (98-107); Globulin 3.5 g/dL (1.3-4.6); Glomerular Filtration Rate 111.8 mL/min (90-130); Glucose 117 mg/dL (65-115); Osmolality Calculated 278 mOsm/kg (285-295); Sodium 134 mmol/L (136-145); Total Bilirubin 0.6 mg/dL (0.15-1.2); Total Protein 6.1 g/dL (6.6-8.7)
[2020-01-02 02:46] LABS: Basophils # 0.1 10^3/uL (0.0-0.1); Basophils % 0.5 %; Hematocrit 28.4 % (42.0-52.0); Hemoglobin 8.7 g/dL (11.7-16.6); Lymphocytes # 22.9 10^3/uL (0.8-4.8); Mean Corpuscular HGB Conc 30.6 g/dL (30.0-36.0); Mean Corpuscular Hemoglobin 28.5 pg (28.0-34.0); Mean Corpuscular Volume 93.1 fL (80-94); Mean Platelet Volume 11.8 fL (7.4-10.4); Monocytes # 0.1 10^3/uL (0.2-0.9); Monocytes % 0.4 %; Neutrophils # 1.39 10^3/uL (1.8-7.7); Neutrophils % 5.6 %; Nucleated Red Blood Cells % 0 %; Platelet Count 192 10^3/cmm (130-400); Red Blood Count 3.05 10^6/uL (4.1-5.3); Red Cell Distribution Width 14.6 % (12.1-15.1); White Blood Count 24.6 10^3/uL (4.0-10.0)
[2020-01-02 02:52] LABS: C Reactive Protein 94.8 mg/L (0.0-4.9)
[2020-01-02 02:54] LABS: Anion Gap 12.7 (5-19); Potassium 3.7 mmol/L (3.5-5.1)
[2020-01-02 03:04] LABS: Slide Review Slide Review Perform
[2020-01-02 03:06] LABS: Ferritin 2536 ng/mL (30-400); Lactate Dehydrogenase 285 U/L (135-225)
[2020-01-02] MEDS: dextrose 5%-sod chloride 0.9% 1,000 ML 75 ML IV (06:20)
--- NOTE | 2020-01-02 07:41 | ECG_ITS ---
[facility] ED Test Date: 2020-01-02 Pat Name: Lb Garcia Department: Room: ICU19 Gender: Male Platform Loader: : 1950 Requested By: Keke Yanez Order Number: [id number] Mundo MD: Tanesha Fink M.D. Measurements Intervals [place] Rate: 142 P: 16 AR: 143 QRS: -31 QRSD: 94 T: 10 QT: 328 QTc: 504 Interpretive Statements SINUS TACHYCARDIA MARKED LEFT AXIS DEVIATION [QRS AXIS < -30] NONSPECIFIC ST & T-WAVE ABNORMALITY No previous ECG available for comparison Electronically Signed On 01-10-2020 19:27:55 TEARER by Tanesha Fink M.D. [id number]
[2020-01-02 08:10] LABS: Glucose Point of Care 88 mg/dL (70-110)
[2020-01-02] MEDS: acetaminophen 325 mg Tablet 650 MG PO (08:21)
--- NOTE | 2020-01-02 08:24 | P.PN_ITS ---
Subjective Subjective: Interval history: Febrile overnight with Tmax-103.2 F, tachycardic this AM with HRs in the 150s, noted to be tremulous per nursing staff and difficulty getting consistent oxygen saturation. Normotensive, currently afebrile, alert and oriented, on 6 L high flow NC. Had 1775 mL urine output overnight. Noted elevated inflammatory markers, decreased leukocytosis, decreasing LFTs, drop in Hg (10.3->8.7). Seems to have settled down and is more comfortable though required some time on NRB. Seen several times throughout the day, seem to do well for much of the day then developed another similar episode though shorter interval and severity. These seem quite episodic though unclear what triggers them. Medications: Reviewed: Yes Medication Review Details: Active Medications Generic Name Dose Route Start Last Admin Trade Name Freq PRN Reason Stop Dose Admin Acetaminophen 650 mg 01/01/20 16:22 01/02/20 08:21 Tylenol PO 650 mg Q4H PRN Administration MILD PAIN OR INCR EASE TEMP Albuterol Sulfate 2 puff 12/29/19 23:49 01/01/20 20:22 Ventolin INHALATION 2 puff Q4H.RESPIRATORY P RN Administration SHORTNESS OF LILIA TH Apixaban 5 mg 12/31/19 09:00 01/01/20 17:36 Eliquis PO 5 mg BID ROWAN Administration Dexamethasone 6 mg 12/30/19 08:45 01/01/20 08:50 Decadron IVP 6 mg Q24H ROWAN Administration Dextrose 25 ml 12/29/19 23:49 D50w IVP ONCE PRN hypoglycemia prot ocol Protocol Dextrose 50 ml 12/29/19 23:49 D50w IVP PRN PRN hypoglycemia prot ocol Protocol Finasteride 5 mg 12/30/19 09:00 01/01/20 08:50 Proscar PO 5 mg DAILY ROWAN Administration Glucagon 1 mg 12/29/19 23:49 Glucagen IM ONCE PRN Adult Acute Hypog lycemia Prot. Protocol Dextrose 500 mls @ 100 mls /hr 12/29/19 23:49 D5w IV ONCE PRN Adult Acute Hypog lycemia Prot Protocol Dextrose/Sodium Ch loride 1,000 mls @ 75 ml s/hr 12/29/19 23:49 01/02/20 06:20 Dextrose 5%-Sod Chloride 0.9% IV 75 mls/hr .[id number] ROWAN Administration Imipenem/Cilastati n Sodium 250 100 mls @ 200 mls /hr 12/30/19 09:00 01/02/20 01:55 mg/ Sodium Chlor bryon IV 200 mls/hr Q6H ROWAN Administration Protocol Vancomycin HCl 1,5 00 mg/ 250 mls @ 250 mls /hr 12/30/19 10:00 01/01/20 22:50 Sodium Chloride IV 166 mls/hr Q12H ROWAN Administration Protocol Sodium Chloride 250 mls @ 250 mls /hr 01/02/20 08:23 Sodium Chloride 0.9% IV 01/02/20 09:22 ONCE ONE Ibuprofen 600 mg 01/01/20 19:00 01/01/20 23:38 Motrin PO 600 mg Q6H PRN Administration MILD PAIN OR INCR EASE TEMP Insulin Aspart 0 unit 12/30/19 08:00 01/01/20 21:08 Novolog SUBCUT Not Given WM&BEDTIME ROWAN Protocol No Known Allergies Allergy (Verified 12/29/19 14:57) Vitals/I&O/Wt Last Vital Signs Temp 98.8 F 01/02/20 04:00 Pulse 121 H 01/02/20 06:00 Resp 28 H 01/02/20 06:00 BP 119/86 01/02/20 06:00 Pulse Ox 94 01/02/20 06:00 01/01/20 01/02/20 01/02/20 22:59 06:59 14:59 Intake Total 460 / 2729 1650 / 4379 Output Total 360 / 1600 1775 / 3375 Balance 100 / 1129 -125 / 1004 Physical Exam Const: COMMON NORMALS: no acute distress, patient oriented x3 and alert GENERAL APPEARANCE: cooperative, comfortable and ill appearing ORIENTATION/CONSCIOUSNESS: Yes awake OTHER: -fatigued, tremulous HENMT: COMMON NORMALS: normocephalic, atraumatic, hearing grossly normal bilaterally and moist oral mucous membranes HEAD & SCALP: normocephalic and atraumatic Eye: COMMON NORMALS: Equal, round and reactive pupils present, EOMs intact b ilaterally and conjunctivae normal CONJUNCTIVA: Yes conjunctivae normal PUPIL: Yes Equal, round and reactive pupils present Neck/C-Spine: COMMON NORMALS: full ROM GENERAL: Yes normal visual ins pection and Yes trachea midline Resp: COMMON NORMALS: normal respiratory effort, No retractions and No use of accessory muscles EFFORT & INSPECTION: Yes able to speak in complete sentences, Yes symmetric chest movement, Yes tachypneic and Yes Actively coughing AUSCULTATION: rhonchi OTHER: -on NRB Cardio: COMMON NORMALS: regular rhythm, S1 normal heart sound present, S2 normal heart sound present and No murmurs present (Cardio) RATE: tachycardic RHYTHM: regular rhythm HEART SOUNDS: S1 normal heart sound present and S2 normal heart sound present GI: COMMON NORMALS: Normal to inspection, nondistended, normoactive bowel sounds present, Soft to palpation and non-tender PALPATION: Yes Soft to palpation Extremity: COMMON NORMALS: normal to inspection, full ROM and no clubbing, cyanosis or edema; negative for no pedal edema Neuro: COMMON NORMALS: patient oriented x3, moves all extremities, no focal motor deficits and no sensory deficits noted SENSORIUM/ORIENTATION: Yes alert Psych: COMMON NORMALS: mental status grossly normal, Normal thought process present, cooperative, normal affect and speech normal SPEECH: Yes normal speech THOUGHT PROCESS: Normal thought process present Skin: COMMON NORMALS: no rashes or lesions noted, no jaundice, no petechiae and no mottling GENERAL SKIN EXAM: no rashes or lesions noted Data : 01/02/20 01:45 01/02/20 01:45 Micro: Microbiology 01/02/20 01:45 Blood Culture - Preliminary Blood SPECIMEN COLLECTED 01/02/20 01:45 Blood Culture - Preliminary Blood SPECIMEN COLLECTED A&P Assessment and plan (1) COVID-19: -Noted to have COVID-19 pneumonia in setting of underlying imm unocompromise secondary to CLL, on current treatment -Secondary to abnormal transaminases, no remdesivir so far -Continue IV steroids, empiric antibiotic therapy, supportive care -Spiked high-grade temps overnight with T-max of 103.2 F, tachycardic, tachypneic; continue to monitor vital signs -Continue supplemental oxygen as needed, not oxygen dependent at baseline, home oxygen evaluation prior to discharge if appropriate -order CT chest due to noted increased infiltrates on repeat imaging, underlying immunocompromise and low threshold for developing ARDS -continue to trend inflammatory markers; elevated and with noted LDH and ferritin levels, meets criteria for more severe disease. With decreased LFTs, will give loading dose of remdesevir and continue to closely monitor LFTs -blood cx: prelim negative -will give low dose NS bolus, Ativan, BB IV and monitor response Status: Acute (2) Abnormal transaminases: -Likely medication induced versus related to COVID-19 infection -Negative hepatitis, HIV -Imaging noted including gallbladder ultrasound, abdominal CT which showed presence of gallstones, mild hepatic steatosis -Continue to trend LFTs; improving Status: Acute (3) CLL (chronic lymphocytic leukemia): -Follows up with oncology Dr. Plaza -Has been on treatment with bendamustine, Rituxan; last dose was in November -Noted significant leukocytosis part of which is steroid-induced; improved today, [id number] Status: Chronic (4) Essential (primary) hypertension: -Continue to monitor vital signs Status: Chronic (5) Type 2 diabetes mellitus without complications: -A1c-5.8 (11/2019) -DAVIDSON Krueger Status: Chronic Qualifiers: Diabetes mellitus terminal block assembler insulin use: without terminal block assembler use Qualified Code(s): E11.9 - Type 2 diabetes mellitus without complications (6) NIKIA on CPAP: Status: Chronic (7) BPH (benign prostatic hyperplasia): -noted enlarged prostate on imaging -continue finasteride -follows up with Dr. Chowdary Status: Chronic Qualifiers: Lower urinary tract symptom presence: symptoms absent Qualified Code(s): N40.0 - Benign prostatic hyperplasia without lower urinary tract symptoms (8) Paroxysmal atrial fibrillation: -noted to have a short run of atrial fibrillation on Holter monitor -has been following up with Dr. Murillo -Echo (08/2019): EF=60%, G1DD, trace MA, trace MR -no AC due to previously noted thrombocytopenia, chemotherapy; on Eliquis here -telemetry monitoring Status: Acute (9) Dyslipidemia: -statin on hold Status: Chronic Additional A&P Information -regular diet as tolerated -GI ppx with famotidine -DVT ppx not needed as on Eliquis -Dispo: home, lives alone -Code status: DNR/DNI Attestations Medical Necessity Statement*: Patient requires hospitalization for continued management of moderate to severe COVID-19 pneumonia with underlying immunocompromise. Time Spent in Patient Care: Greater than 35 minutes (>than 50% of time spent in counselling and/or direct pt care on unit) . Coding Level of Care Code Acute Catering Director for Sridevi Mcghee Exam Comprehensive Diagnoses COVID-19 U07.1 Abnormal transaminases R74.8 CLL (chronic lymphocytic leukemia) C91.10 Essential (primary) hypertension I10 Type 2 diabetes mellitus without complications E11.9 Diabetes mellitus terminal block assembler insulin use: without terminal block assembler use NIKIA on CPAP G47.33; Z99.89 BPH (benign prostatic hyperplasia) N40.0 Lower urinary tract symptom presence: symptoms absent Paroxysmal atrial fibrillation I48.0 Dyslipidemia E78.5
[2020-01-02] MEDS: metoprolol tartrate 1 mg/1 mL SDV 5 mL 2.5 MG IV (08:33)
[2020-01-02] MEDS: LORazepam 2 mg/mL INJ 1 mL IVP (08:33)
[2020-01-02] MEDS: dexamethasone 4 mg/mL INJ 6 MG IVP (08:34)
[2020-01-02] MEDS: sodium chloride 0.9% 250 ML IV (08:34)
--- NOTE | 2020-01-02 08:34 | CT_ITS ---
WS: [id number] Exam: CT chest wo con [id number] Date/Time of Exam: 01/02/2020 1:36 PM Reason For Exam: progression of COVID-19 pneumonia Technique: Axial contiguous CT images with coronal and sagital reformats. DLP: 824.[address] scans at [facility] use at least one of these dose optimization techniques: automat ed exposure control; mA and/or kV adjustment per patient size (includes targeted exams where dose is matched to clinical indication); or iterative reconstruction. Findings: Compared to previous exam performed 05/19/2019. There are patchy groundglass infiltrates noted throughout both lungs. Bilateral posterior pleural eff usions are noted with compressive atelectasis of the posterior basal segments of both lungs. No pneum othorax. The airway is patent. The thoracic aorta is normal in caliber. Goitrous enlargement of both thyroid lobes. There is mediastinal lymphadenopathy that could be reactive or inflammatory. Hilar lym phadenopathy. No pericardial effusion. Mild cardiac enlargement. Coronary artery calcifications. No d estructive bone lesions. The chest wall is intact. Incidentally noted is cholelithiasis. CT/CT chest wo con [id number] IMPRESSION: 1. Patchy groundglass opacities identified throughout both lungs. The pattern i s nonspecific but this can be seen with Covid pneumonia. 2. Posterior pleural effusions noted with compressive atelectasis of both lower lobes. 3. Mediastinal and bilateral hilar adenopathy. 4. Goitrous enlargement of the thyroid gland. 5. Cholelithiasis.
--- NOTE | 2020-01-02 08:47 | PC.RESP ---
Nurse asked RT to come into room to assess patient. Therapist went in and could not get a sat on the patient, even after warming hands, feet, and placing a forehead pulse ox. Patient was breathing 42BPM, heart rate was 152, and could not obtain a sat at that time. Dr. Davies was notified by nurse and RT. She stated that patient is a DNR and to monitor patient closely. RT finally got a sat of 82%, HR 146, and RR 42. Therapist placed a NRB on patient of 15LPM and a 100% FIO2. sats came up to 95% and heart rate 103, RR 28. Patient sounds Diminished at this time. Dr. Davies was notified again by RT about placement of NRB and vitals. Dr. Davies stated that we will monitor patient to see if he will calm down to wean off of NRB.
[2020-01-02] MEDS: apixaban 5 mg Tablet PO ×2 (09:14→17:33)
[2020-01-02] MEDS: finasteride 5 mg Tablet PO (09:14)
[2020-01-02 11:40] LABS: Glucose Point of Care 114 mg/dL (70-110)
[2020-01-02] MEDS: albuterol 8 gm MDI 2 PUFF INHALATION (12:41)
[2020-01-02] MEDS: ibuprofen 600 mg Tablet PO (16:15)
[2020-01-02 16:40] LABS: Glucose Point of Care 131 mg/dL (70-110)
--- NOTE | 2020-01-02 18:35 | PC.NURSE ---
0730 PT had elevated HR. Dr. Yanez notified. No new orders at that time. Continue to monitor. 0810 PT's work of breathing increased and O2 sats dropped. PT shivering, pale, and diaphoretic. Dr. Yaenz notified. Orders to give Tylenol, IV metoprolol, lorazepam, and 250 ml NS bolus. High flow NC applied. PT's heart rate and O2 sat improved. PT resting comfortably. Vital signs stable. 1330 PT transported to SD with no issues 1615 PT had another episode of shivering. His O2 sat dropped, work of breathing increased and he was diaphoretic. Dr. Yanez on unit and came to bedside. RT at bedside, increased O2 flow. Ibuprofen given. PT's O2 sat improved and is resting comfortably in bed. Vital signs stable.
[2020-01-02 21:08] LABS: Glucose Point of Care 156 mg/dL (70-110)
[2020-01-03] VITALS (32 sets, daily range): BP systolic 119–170; BP diastolic 70–94; PULSE 65–122; RESP 16–46; TEMP 36.8–39.4; O2SAT 83–100
[2020-01-03] MEDS: dextrose 5%-sod chloride 0.9% 1,000 ML 75 ML IV ×2 (02:25→12:59)
--- NOTE | 2020-01-03 05:57 | PC.NURSE ---
Pt became tachycardic into 100s around 0515, SpO2 with a bad waveform and artifact observed in leads. Went to check on pt and he was shaking. HR up to 120s, resps 40s. Temp checked and was 98.8 orally. Pt given 650 mg PO Tylenol as he's been spiking fevers at times. Changed O2 sensor to forehead probe, pt was mouth breathing and satting 88%. Placed on NRB at 15L. Stayed with pt for 20 mins and his shaking began to subside, HR into 110s, resps into 30s, O2 at 95%--weaned down to 8L. NRB left on d/t mouth breathing. Cont to monitor.
--- NOTE | 2020-01-03 06:14 | PC.NURSE ---
Pt resting in bed with eyes closed, HR 91, SpO2 8L on NRB, resps at 16.
[2020-01-03 06:45] LABS: Fibrinogen 702 mg/dL (174-498)
[2020-01-03 06:48] LABS: D Dimer 1.82 ug/mIFEU (0-0.59)
[2020-01-03 06:54] LABS: Alanine Aminotransferase 115 U/L (0-41); Albumin Level 2.5 g/dL (3.5-5.2); Alkaline Phosphatase 65 IU/L (40-130); Anion Gap 11.7 (5-19); Aspartate Amino Transferase 76 U/L (0-40); Blood Urea Nitrogen 16 mg/dL (8-23); Calcium 8.1 mg/dL (8.5-10.5); Carbon Dioxide 25 mmol/L (22-29); Chloride 105 mmol/L (98-107); Globulin 3.8 g/dL (1.3-4.6); Glomerular Filtration Rate 95.8 mL/min (90-130); Glucose 91 mg/dL (65-115); Osmolality Calculated 287 mOsm/kg (285-295); Potassium 3.7 mmol/L (3.5-5.1); Sodium 138 mmol/L (136-145); Total Bilirubin 0.4 mg/dL (0.15-1.2); Total Protein 6.3 g/dL (6.6-8.7)
[2020-01-03 07:00] LABS: Lactate Dehydrogenase 323 U/L (135-225); NT Pro B Type Natriuretic Pept 1819 pg/mL (0-125)
[2020-01-03 07:03] LABS: Basophils # 0.1 10^3/uL (0.0-0.1); Basophils % 0.5 %; Hematocrit 31.7 % (42.0-52.0); Hemoglobin 9.4 g/dL (11.7-16.6); Lymphocytes # 24.7 10^3/uL (0.8-4.8); Lymphocytes % 94.3 %; Mean Corpuscular HGB Conc 29.7 g/dL (30.0-36.0); Mean Corpuscular Hemoglobin 28.4 pg (28.0-34.0); Mean Corpuscular Volume 95.8 fL (80-94); Mean Platelet Volume 11.9 fL (7.4-10.4); Monocytes # 0.1 10^3/uL (0.2-0.9); Monocytes % 0.4 %; Neutrophils # 1.21 10^3/uL (1.8-7.7); Neutrophils % 4.6 %; Nucleated Red Blood Cells % 0 %; Platelet Count 244 10^3/cmm (130-400); Red Blood Count 3.31 10^6/uL (4.1-5.3); White Blood Count 26.2 10^3/uL (4.0-10.0)
[2020-01-03 07:13] LABS: Ferritin 2522 ng/mL (30-400)
[2020-01-03 07:15] LABS: C Reactive Protein 140.7 mg/L (0.0-4.9); Creatine Phosphokinase 129 U/L (39-308)
[2020-01-03 07:24] LABS: Slide Review Slide Review Perform
[2020-01-03 08:04] LABS: Glucose Point of Care 103 mg/dL (70-110)
[2020-01-03] MEDS: finasteride 5 mg Tablet PO (09:11)
[2020-01-03] MEDS: apixaban 5 mg Tablet PO ×2 (09:11→17:22)
[2020-01-03] MEDS: dexamethasone 4 mg/mL INJ 6 MG IVP (09:11)
--- NOTE | 2020-01-03 09:48 | PM.PN ---
Subjective Subjective: Interval history: On 3 L NC, on day 2 of remdesevir, afebrile, continues to have episodes of shivering with noted tachycardia, hypertension, tachypnea. Inflammatory markers remain elevated, improved LFTs. Overall has had a better day today with more stability in his hemodynamic status. Was able to sit up in the chair for some time this afternoon. Oxygen requirement increased to 6 L by end of shift. Medications: Reviewed: Yes Medication Review Details: Active Medications Generic Name Dose Route Start Last Admin Trade Name Freq PRN Reason Stop Dose Admin Acetaminophen 650 mg 01/01/20 16:22 01/02/20 08:21 Tylenol PO 650 mg Q4H PRN Administration MILD PAIN OR INCR EASE TEMP Albuterol Sulfate 2 puff 12/29/19 23:49 01/02/20 12:41 Ventolin INHALATION 2 puff Q4H.RESPIRATORY P RN Administration SHORTNESS OF LILIA TH Apixaban 5 mg 12/31/19 09:00 01/03/20 09:11 Eliquis PO 5 mg BID ROWAN Administration Dexamethasone 6 mg 12/30/19 08:45 01/03/20 09:11 Decadron IVP 6 mg Q24H ROWAN Administration Dextrose 25 ml 12/29/19 23:49 D50w IVP ONCE PRN hypoglycemia prot ocol Protocol Dextrose 50 ml 12/29/19 23:49 D50w IVP PRN PRN hypoglycemia prot ocol Protocol Finasteride 5 mg 12/30/19 09:00 01/03/20 09:11 Proscar PO 5 mg DAILY ROWAN Administration Glucagon 1 mg 12/29/19 23:49 Glucagen IM ONCE PRN Adult Acute Hypog lycemia Prot. Protocol Dextrose 500 mls @ 100 mls /hr 12/29/19 23:49 D5w IV ONCE PRN Adult Acute Hypog lycemia Prot Protocol Dextrose/Sodium Ch loride 1,000 mls @ 75 ml s/hr 12/29/19 23:49 01/03/20 02:25 Dextrose 5%-Sod Chloride 0.9% IV 75 mls/hr .[id number] ROWAN Administration Imipenem/Cilastati n Sodium 250 100 mls @ 200 mls /hr 12/30/19 09:00 01/03/20 09:12 mg/ Sodium Chlor bryon IV 200 mls/hr Q6H ROWAN Administration Protocol Vancomycin HCl 1,5 00 mg/ 250 mls @ 250 mls /hr 12/30/19 10:00 01/03/20 09:14 Sodium Chloride IV 250 mls/hr Q12H ROWAN Administration Protocol remdesivir (EUA) 1 00 mg/ 100 mls @ 100 mls /hr 01/03/20 09:00 01/03/20 09:12 Sodium Chloride IV 01/06/20 09:59 100 mls/hr Q24H ROWAN Administration Ibuprofen 600 mg 01/01/20 19:00 01/02/20 16:15 Motrin PO 600 mg Q6H PRN Administration MILD PAIN OR INCR EASE TEMP Insulin Aspart 0 unit 12/30/19 08:00 01/03/20 08:32 Novolog SUBCUT Not Given WM&BEDTIME ROWAN Protocol No Known Allergies Allergy (Verified 12/29/19 14:57) Vitals/I&O/Wt Last Vital Signs Temp 98.8 F 01/03/20 05:15 Pulse 77 01/03/20 09:20 Resp 16 01/03/20 09:20 BP 133/76 01/03/20 06:00 Pulse Ox 93 01/03/20 09:20 01/02/20 01/03/20 01/03/20 22:59 06:59 14:59 Intake Total 1500 / 2200 500 / 2700 350 / 350 Output Total 700 / 1300 325 / 1625 Balance 800 / 900 175 / 1075 350 / 350 Physical Exam Const: COMMON NORMALS: no acute distress, patient oriented x3 and alert GENERAL APPEARANCE: cooperative, comfortable and ill appearing ORIENTATION/CONSCIOUSNESS: Yes awake OTHER: -fatigued, more alert today HENMT: COMMON NORMALS: normocephalic, atraumatic, hearing grossly normal bilaterally and moist oral mucous membranes HEAD & SCALP: normocephalic and atraumatic Eye: COMMON NORMALS: Equal, round and reactive pupils present, EOMs intact bilaterally and conjunctivae normal CONJUNCTIVA: Yes conjunctivae normal PUPIL: Yes Equal, round and reactive pupils present Neck/C-Spine: COMMON NORMALS: full ROM GENERAL: Yes normal visual inspection and Yes trachea midline Resp: COMMON NORMALS: normal respiratory effort, No retractions and No use of accessory muscles EFFORT & INSPECTION: Yes able to speak in complete sentences, Yes symmetric chest movement and Yes tachypneic AUSCULTATION: rhonchi and diminished lung sounds OTHER: -on 3-6 L NC Cardio: COMMON NORMALS: regular rate, regular rhythm, S1 normal heart sound present, S2 normal heart sound present and No murmurs present (Cardio) RATE: regular rate RHYTHM: regular rhythm HEART SOUNDS: S1 normal heart sound present and S2 normal heart sound present GI: COMMON NORMALS: Normal to inspection, nondistended, normoactive bowel sounds present, Soft to palpation and non-tender PALPATION: Yes Soft to palpation Extremity: COMMON NORMALS: normal to inspection, full ROM and no clubbing, cyanosis or edema; negative for no pedal edema Neuro: COMMON NORMALS: patient oriented x3, moves all extremities, no focal motor deficits and no sensory deficits noted SENSORIUM/ORIENTATION: Yes alert Psych: COMMON NORMALS: mental status grossly normal, Normal thought process present, cooperative, normal affect and speech normal SPEECH: Yes normal speech THOUGHT PROCESS: Normal thought process present Skin: COMMON NORMALS: no rashes or lesions noted, no jaundice, no petechiae and no mottling GENERAL SKIN EXAM: no rashes or lesions noted Data : 01/03/20 03:35 01/03/20 03:35 Micro: Microbiology 01/01/20 19:54 Urine Culture - Final Urine,Clean Catch 01/02/20 01:45 Blood Culture - Preliminary Blood NEGATIVE TO DATE 01/02/20 01:45 Blood Culture - Preliminary Blood NEGATIVE TO DATE 01/01/20 15:50 Sputum Culture - Preliminary Sputum - Expectorated Sputum A&P Assessment and plan (1) COVID-19: -Noted to have COVID-19 pneumonia in setting of underlying immunocompromise secondary to CLL, on current treatment -on day 2 of remdesivir -Continue IV steroids, empiric antibiotic therapy, supportive care -afebrile, episodic hypertension, tachycardia, tachypnea; continue to monitor vital signs -Continue supplemental oxygen as needed, not oxygen dependent at baseline, home oxygen evaluation prior to discharge if appropriate -CT chest with noted groundglass opacities bilaterally, pleural effusions -continue to trend inflammatory markers; elevated and with noted LDH and ferritin levels, meets criteria for more severe disease; started on remdesevir and continue to closely monitor LFTs -blood cx: prelim negative Status: Acute (2) Abnormal transaminases: -Likely medication induced versus related to COVID-19 infection -Negative hepatitis, HIV -Imaging noted including gallbladder ultrasound, abdominal CT which showed presence of gallstones, mild hepatic steatosis -Continue to trend LFTs; improving Status: Acute (3) CLL (chronic lymphocytic leukemia): -Follows up with oncology Dr. Plaza -Has been on treatment with bendamustine, Rituxan; last dose was in November -Noted significant leukocytosis part of which is steroid-induced; improved today, not neutropenic Status: Chronic (4) Essential (primary) hypertension: -Continue to monitor vital signs Status: Chronic (5) Type 2 diabetes mellitus without complications: -A1c-5.8 (11/2019) -Acczari, ISS Status: Chronic Qualifiers: Diabetes mellitus nursing home insulin use: without chemical dependency nurse use Qualified Code(s): E11.9 - Type 2 diabetes mellitus without complications (6) NIKIA on CPAP: Status: Chronic (7) BPH (benign prostatic hyperplasia): -noted enlarged prostate on imaging -continue finasteride -follows up with Dr. Chowdary Status: Chronic Qualifiers: Lower urinary tract symptom presence: symptoms absent Qualified Code(s): N40.0 - Benign prostatic hyperplasia without lower urinary tract symptoms (8) Paroxysmal atrial fibrillation: -noted to have a short run of atrial fibrillation on Holter monitor -has been following up with Dr. Murillo -Echo (08/2019): EF=60%, G1DD, trace LA, trace MR -no AC due to previously noted thrombocytopenia, chemotherapy; on Eliquis here -telemetry monitoring -BB IV PRN Status: Acute (9) Dyslipidemia: -statin on hold Status: Chronic Additional A&P Information -regular diet as tolerated -GI ppx with famotidine -DVT ppx not needed as on Eliquis -Dispo: home, lives alone -Code status: DNR/DNI Attestations Medical Necessity Statement*: Patient requires hospitalization for continued management of COVID-19 pneumonia with underlying immunocompromise, on IV antibiotics and antiviral treatment. Time Spent in Patient Care: Greater than 35 minutes (>than 50% of time spent in counselling and/or direct pt care on unit). Coding Level of Care Code Acute Fence Setter for Chg Fwd Exam Comprehensive Diagnoses COVID-19 U07.1 Abnormal transaminases R74.8 CLL (chronic lymphocytic leukemia) C91.10 Essential (primary) hypertension I10 Type 2 diabetes mellitus without complications E11.9 Diabetes mellitus nursing home insulin use: without chemical dependency nurse use NIKIA on CPAP G47.33; Z99.89 BPH (benign prostatic hyperplasia) N40.0 Lower urinary tract symptom presence: symptoms absent Paroxysmal atrial fibrillation I48.0 Dyslipidemia E78.5
[2020-01-03] MEDS: acetaminophen 325 mg Tablet 650 MG PO ×2 (11:17→19:00)
[2020-01-03 11:38] LABS: Glucose Point of Care 98 mg/dL (70-110)
--- NOTE | 2020-01-03 11:50 | PC.SOCIAL ---
Addendum entered by Leeann Sahu RN 01/04/20 15:41: Was unable to reach anyone by phone and no one listed on contacts. Original Note: IMM Updated Page 2 of IMM updated. Initialed, dated, and timed and will send to medical records upon d/c to be placed in patient's EHR.
[2020-01-03 16:23] LABS: Glucose Point of Care 133 mg/dL (70-110)
[2020-01-03] MEDS: metoprolol tartrate 25 mg Tablet 12.5 MG PO (17:22)
[2020-01-03 22:33] LABS: Vancomycin Trough 15.1 ug/mL (10-15)
--- NOTE | 2020-01-03 22:48 | PC.PHAR ---
Vancomycin trough is 15.1. Continue Vancomycin 1500mg IVPB every 12 hours.
[2020-01-04] VITALS (26 sets, daily range): BP systolic 123–154; BP diastolic 54–95; PULSE 54–82; RESP 16–36; TEMP 36.5–37.2; O2SAT 89–99
[2020-01-04 00:41] LABS: Glucose Point of Care 114 mg/dL (70-110)
[2020-01-04 05:34] LABS: Basophils # 0.1 10^3/uL (0.0-0.1); Basophils % 0.5 %; Hematocrit 27.1 % (42.0-52.0); Hemoglobin 8.2 g/dL (11.7-16.6); Lymphocytes # 17.6 10^3/uL (0.8-4.8); Lymphocytes % 96.5 %; Mean Corpuscular HGB Conc 30.3 g/dL (30.0-36.0); Mean Corpuscular Hemoglobin 28.2 pg (28.0-34.0); Mean Corpuscular Volume 93.1 fL (80-94); Mean Platelet Volume 11.3 fL (7.4-10.4); Monocytes % 0.2 %; Neutrophils % 2.7 %; Nucleated Red Blood Cells % 0 %; Platelet Count 202 10^3/cmm (130-400); Red Blood Count 2.91 10^6/uL (4.1-5.3); Red Cell Distribution Width 14.8 % (12.1-15.1); White Blood Count 18.3 10^3/uL (4.0-10.0)
[2020-01-04 05:42] LABS: Fibrinogen 578 mg/dL (174-498)
[2020-01-04 05:46] LABS: D Dimer 1.67 ug/mIFEU (0-0.59)
[2020-01-04 05:52] LABS: Alanine Aminotransferase 81 U/L (0-41); Albumin Level 1.9 g/dL (3.5-5.2); Alkaline Phosphatase 55 IU/L (40-130); Anion Gap 11.3 (5-19); Aspartate Amino Transferase 67 U/L (0-40); Blood Urea Nitrogen 15 mg/dL (8-23); C Reactive Protein 100.8 mg/L (0.0-4.9); Calcium 8.1 mg/dL (8.5-10.5); Carbon Dioxide 24 mmol/L (22-29); Chloride 107 mmol/L (98-107); Globulin 3.8 g/dL (1.3-4.6); Glomerular Filtration Rate 111.8 mL/min (90-130); Glucose 105 mg/dL (65-115); Osmolality Calculated 289 mOsm/kg (285-295); Potassium 3.3 mmol/L (3.5-5.1); Sodium 139 mmol/L (136-145); Total Bilirubin 0.4 mg/dL (0.15-1.2); Total Protein 5.7 g/dL (6.6-8.7)
[2020-01-04 05:53] LABS: Lactate Dehydrogenase 337 U/L (135-225)
[2020-01-04 05:57] LABS: Ferritin 2194 ng/mL (30-400)
[2020-01-04 06:06] LABS: Neutrophils # 0.48 10^3/uL (1.8-7.7)
[2020-01-04 06:07] LABS: Slide Review Slide Review Perform
[2020-01-04 07:16] LABS: Glucose Point of Care 112 mg/dL (70-110)
[2020-01-04] MEDS: metoprolol tartrate 25 mg Tablet 12.5 MG PO ×2 (08:31→17:54)
[2020-01-04] MEDS: dexamethasone 4 mg/mL INJ 6 MG IVP (08:31)
[2020-01-04] MEDS: apixaban 5 mg Tablet PO ×2 (08:31→17:54)
[2020-01-04] MEDS: dextrose 5%-sod chloride 0.9% 1,000 ML 75 ML IV (08:35)
[2020-01-04] MEDS: finasteride 5 mg Tablet PO (08:35)
[2020-01-04 11:20] LABS: Glucose Point of Care 124 mg/dL (70-110)
--- NOTE | 2020-01-04 12:56 | PM.PN ---
Subjective Subjective: Interval history: On 6 L HFNC, tachypneic, normotensive, afebrile currently, febrile yesterday evening (101.2F). Had 1950 mL urine output overnight. Decreasing leukocytosis, ANC of 480, will need reverse isolation precautions. Noted drop in Hg, mild hypokalemia. On day 3 of remdesevir. LFTs continue to improve. Was able to get up and ambulate for a short distance with PT. Medications: Reviewed: Yes Medication Review Details: Active Medications Generic Name Dose Route Start Last Admin Trade Name Freq PRN Reason Stop Dose Admin Acetaminophen 650 mg 01/01/20 16:22 01/03/20 19:00 Tylenol PO 650 mg Q4H PRN Administration MILD PAIN OR INCR EASE TEMP Albuterol Sulfate 2 puff 12/29/19 23:49 01/02/20 12:41 Ventolin INHALATION 2 puff Q4H.RESPIRATORY P RN Administration SHORTNESS OF LILIA TH Apixaban 5 mg 12/31/19 09:00 01/04/20 08:31 Eliquis PO 5 mg BID ROWAN Administration Dexamethasone 6 mg 12/30/19 08:45 01/04/20 08:31 Decadron IVP 6 mg Q24H ROWAN Administration Dextrose 25 ml 12/29/19 23:49 D50w IVP ONCE PRN hypoglycemia prot ocol Protocol Dextrose 50 ml 12/29/19 23:49 D50w IVP PRN PRN hypoglycemia prot ocol Protocol Finasteride 5 mg 12/30/19 09:00 01/04/20 08:35 Proscar PO 5 mg DAILY ROWAN Administration Glucagon 1 mg 12/29/19 23:49 Glucagen IM ONCE PRN Adult Acute Hypog lycemia Prot. Protocol Dextrose 500 mls @ 100 mls /hr 12/29/19 23:49 D5w IV ONCE PRN Adult Acute Hypog lycemia Prot Protocol Vancomycin HCl 1,5 00 mg/ 250 mls @ 250 mls /hr 12/30/19 10:00 01/04/20 10:38 Sodium Chloride IV Infused Q12H ROWAN Infusion Protocol remdesivir (EUA) 1 00 mg/ 100 mls @ 100 mls /hr 01/03/20 09:00 01/04/20 10:38 Sodium Chloride IV 01/06/20 09:59 Infused Q24H ROWAN Infusion Imipenem/Cilastati n Sodium 500 100 mls @ 200 mls /hr 01/03/20 15:00 01/04/20 10:37 mg/ Sodium Chlor bryon IV Infused Q6H [facility] Infusion Protocol Ibuprofen 600 mg 01/01/20 19:00 01/02/20 16:15 Motrin PO 600 mg Q6H PRN Administration MILD PAIN OR INCR EASE TEMP Insulin Aspart 0 unit 12/30/19 08:00 01/04/20 11:06 Novolog SUBCUT Not Given WM&BEDTIME [facility] Protocol Lorazepam 1 mg 01/03/20 09:51 Ativan IVP Q8H PRN ANXIETY Metoprolol Tartrat e 2.5 mg 01/03/20 09:51 Metoprolol Tartr ate IV Q4H PRN HEART RATE-HIGH Metoprolol Tartrat e 12.5 mg 01/03/20 18:00 01/04/20 08:31 Lopressor PO 12.5 mg BID ROWAN Administration No Known Allergies Allergy (Verified 12/29/19 14:57) Vitals/I&O/Wt Last Vital Signs Temp 98.0 F 01/04/20 11:29 Pulse 65 01/04/20 11:00 Resp 30 H 01/04/20 11:00 BP 141/89 01/04/20 11:00 Pulse Ox 91 01/04/20 11:00 01/03/20 01/04/20 01/04/20 22:59 06:59 14:59 Intake Total 320 / 2172.5 1150 / 3322.5 1400 / 1400 Output Total 1000 / 1400 1550 / 2950 1600 / 1600 Balance -680 / 772.5 -400 / 372.5 -200 / -200 Physical Exam Const: COMMON NORMALS: no acute distress, patient oriented x3 and alert GENERAL APPEARANCE: cooperative, comfortable and ill appearing ORIENTATION/CONSCIOUSNESS: Yes awake OTHER: -fatigued, more alert today HENMT: COMMON NORMALS: normocephalic, atraumatic, hearing grossly normal bilaterally and moist oral mucous membranes HEAD & SCALP: normocephalic and atraumatic Eye: COMMON NORMALS: Equal, round and reactive pupils present, EOMs intact bilaterally and conjunctivae normal CONJUNCTIVA: Yes conjunctivae normal PUPIL: Yes Equal, round and reactive pupils present Neck/C-Spine: COMMON NORMALS: full ROM GENERAL: Yes normal visual inspection and Yes trachea midline Resp: COMMON NORMALS: normal respiratory effort, No retractions and No use of accessory muscles EFFORT & INSPECTION: Yes able to speak in complete sentences, Yes symmetric chest movement and Yes tachypneic AUSCULTATION: rhonchi and diminished lung sounds OTHER: -on 6 L HFNC Cardio: COMMON NORMALS: regular rate, regular rhythm, S1 normal heart sound present, S2 normal heart sound present and No murmurs present (Cardio) RATE: regular rate RHYTHM: regular rhythm HEART SOUNDS: S1 normal heart sound present and S2 normal heart sound present GI: COMMON NORMALS: Normal to inspection, nondistended, normoactive bowel sounds present, Soft to palpation and non-tender PALPATION: Yes Soft to palpation Extremity: COMMON NORMALS: normal to inspection, full ROM and no clubbing, cyanosis or edema; negative for no pedal edema Neuro: COMMON NORMALS: patient oriented x3, moves all extremities, no focal motor deficits and no sensory deficits noted SENSORIUM/ORIENTATION: Yes alert OTHER: -unsteady gait Psych: COMMON NORMALS: mental status grossly normal, Normal thought process present, cooperative, normal affect and speech normal SPEECH: Yes normal speech THOUGHT PROCESS: Normal thought process present Skin: COMMON NORMALS: no rashes or lesions noted, no jaundice, no petechiae and no mottling GENERAL SKIN EXAM: no rashes or lesions noted Data : 01/04/20 03:45 01/04/20 03:45 Micro: Microbiology 01/01/20 19:54 Urine Culture - Final Urine,Clean Catch 12/29/19 01:15 Blood Culture - Final Blood NO GROWTH AFTER 5 DAYS 12/29/19 01:00 Blood Culture - Final Blood NO GROWTH AFTER 5 DAYS 01/01/20 15:50 Sputum Culture - Final Sputum - Expectorated Sputum A&P Assessment and plan (1) COVID-19: -Noted to have COVID-19 pneumonia in setting of underlying immunocompromise secondary to CLL, on current treatment -on day 3 of remdesivir -Continue IV steroids, empiric antibiotic therapy, supportive care -afebrile, episodic hypertension, tachycardia, tachypnea; continue to monitor vital signs -Continue supplemental oxygen as needed, not oxygen dependent at baseline, home oxygen evaluation prior to discharge if appropriate -CT chest with noted groundglass opacities bilaterally, pleural effusions -continue to trend inflammatory markers; elevated and with noted LDH and ferritin levels, meets criteria for more severe disease; started on remdesevir and continue to closely monitor LFTs -blood cx: prelim negative -repeat CXR tomorrow to monitor progression Status: Acute (2) Abnormal transaminases: -Likely medication induced versus related to COVID-19 infection -Negative hepatitis, HIV -Imaging noted including gallbladder ultrasound, abdominal CT which showed presence of gallstones, mild hepatic steatosis -Continue to trend LFTs; improving Status: Acute (3) CLL (chronic lymphocytic leukemia): -Follows up with oncology Dr. 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 Chowdary Status: Chronic Qualifiers: Lower urinary tract symptom presence: symptoms absent Qualified Code(s): N40.0 - Benign prostatic hyperplasia without lower urinary tract symptoms (8) Paroxysmal atrial fibrillation: -noted to have a short run of atrial fibrillation on Holter monitor -has been following up with Dr. Murillo -Echo (08/2019): EF=60%, G1DD, trace TN, trace MR -no AC due to previously noted thrombocytopenia, chemotherapy; on Eliquis here -telemetry monitoring -BB IV PRN Status: Acute (9) Dyslipidemia: -statin on hold Status: Chronic Additional A&P Information -regular diet as tolerated -GI ppx with famotidine -DVT ppx not needed as on Eliquis -Physical deconditioning; PT evaluation appreciated -Dispo: home, lives alone but his daughter can move in with him and help him as needed on discharge -Code status: DNR/DNI Attestations Medical Necessity Statement*: Patient requires hospitalization for continued management of COVID-19 pneumonia, on continued antiviral and antibiotic treatment, needs continued close monitoring of respiratory status. Time Spent in Patient Care: 16 - 35 minutes (>than 50% of time spent in counselling and/or direct pt care on unit). Coding Level of Care Code Acute Aquatic Life Laborer for Chg Fwd Diagnoses COVID-19 U07.1 Abnormal transaminases R74.8 CLL (chronic lymphocytic leukemia) C91.10 Essential (primary) hypertension I10 Type 2 diabetes mellitus without complications E11.9 Diabetes mellitus intermodal owner operator truck driver insulin use: without assisted use NIKIA on CPAP G47.33; Z99.89 BPH (benign prostatic hyperplasia) N40.0 Lower urinary tract symptom presence: symptoms absent Paroxysmal atrial fibrillation I48.0 Dyslipidemia E78.5
[2020-01-04] MEDS: potassium chloride ER 10 mEq Tablet 40 MEQ PO (13:38)
[2020-01-04] MEDS: FUROsemide 10 mg/mL SDV 2mL 20 MG IVP (13:38)
[2020-01-04 16:37] LABS: Glucose Point of Care 156 mg/dL (70-110)
--- NOTE | 2020-01-04 21:06 | PC.NURSE ---
AO x4, speech clear, no facial droop, gang head saw operator equal, denied SOB and dyspnea, regular unlabored RR 3L NC, follows commands and answers questions appropriately, denied pain, no S/S distress at this time, supine 45 degrees, call light within reach
[2020-01-04 21:24] LABS: Glucose Point of Care 113 mg/dL (70-110)
[2020-01-05] VITALS (30 sets, daily range): BP systolic 93–168; BP diastolic 66–96; PULSE 53–78; RESP 15–33; TEMP 36.5–37.1; O2SAT 88–99
[2020-01-05 05:48] LABS: Basophils # 0.1 10^3/uL (0.0-0.1); Basophils % 0.5 %; Hematocrit 31.9 % (42.0-52.0); Hemoglobin 9.7 g/dL (11.7-16.6); Lymphocytes # 19.7 10^3/uL (0.8-4.8); Mean Corpuscular HGB Conc 30.4 g/dL (30.0-36.0); Mean Corpuscular Hemoglobin 28.2 pg (28.0-34.0); Mean Corpuscular Volume 92.7 fL (80-94); Mean Platelet Volume 11.4 fL (7.4-10.4); Monocytes # 0.1 10^3/uL (0.2-0.9); Monocytes % 0.4 %; Nucleated Red Blood Cells % 0 %; Platelet Count 222 10^3/cmm (130-400); Red Blood Count 3.44 10^6/uL (4.1-5.3); Red Cell Distribution Width 14.8 % (12.1-15.1); White Blood Count 20.3 10^3/uL (4.0-10.0)
--- NOTE | 2020-01-05 06:00 | XR_ITS ---
WS: [id number] Exam: XR chest 1V portable [id number] Date/Time of Exam: 01/05/2020 6:00 AM Reason For Exam: COVID-19 +, progression of infection Comparison 01/01/2020. Extensive bilateral groundglass infiltrates throughout both lungs have increased somewhat since the p rior study. The lungs are fully inflated. Normal cardiomediastinal structures. No pleural effusions. Monitoring leads superimpose the chest. XR/XR chest 1V portable [id number] IMPRESSION: 1. Increasing bilateral pulmonary infiltrates since previous exam.
[2020-01-05] MEDS: albuterol 8 gm MDI 2 PUFF INHALATION ×2 (06:08→20:00)
[2020-01-05 06:09] LABS: Alanine Aminotransferase 84 U/L (0-41); Albumin Level 2.3 g/dL (3.5-5.2); Alkaline Phosphatase 63 IU/L (40-130); Anion Gap 13.7 (5-19); Aspartate Amino Transferase 78 U/L (0-40); Blood Urea Nitrogen 18 mg/dL (8-23); C Reactive Protein 77.1 mg/L (0.0-4.9); Calcium 8.5 mg/dL (8.5-10.5); Carbon Dioxide 25 mmol/L (22-29); Chloride 102 mmol/L (98-107); Globulin 4.1 g/dL (1.3-4.6); Glomerular Filtration Rate 133.6 mL/min (90-130); Glucose 91 mg/dL (65-115); Lactate Dehydrogenase 365 U/L (135-225); Osmolality Calculated 285 mOsm/kg (285-295); Potassium 3.7 mmol/L (3.5-5.1); Sodium 137 mmol/L (136-145); Total Bilirubin 0.5 mg/dL (0.15-1.2); Total Protein 6.4 g/dL (6.6-8.7)
[2020-01-05 06:26] LABS: Ferritin 2757 ng/mL (30-400)
[2020-01-05 06:32] LABS: Fibrinogen 609 mg/dL (174-498)
[2020-01-05 07:44] LABS: Glucose Point of Care 95 mg/dL (70-110)
[2020-01-05 07:47] LABS: Neutrophils # 0.37 10^3/uL (1.8-7.7)
[2020-01-05] MEDS: metoprolol tartrate 25 mg Tablet 12.5 MG PO ×2 (08:04→17:33)
[2020-01-05] MEDS: finasteride 5 mg Tablet PO (08:04)
[2020-01-05] MEDS: dexamethasone 4 mg/mL INJ 6 MG IVP (08:05)
[2020-01-05] MEDS: apixaban 5 mg Tablet PO ×2 (08:05→17:33)
[2020-01-05 11:13] LABS: Glucose Point of Care 148 mg/dL (70-110)
--- NOTE | 2020-01-05 12:14 | PC.NURSE ---
Was able to contact daughter Almita ([phone]) and have a facetime session with her and patient.
--- NOTE | 2020-01-05 13:19 | DCPLANNER ---
Pg 2 of IM updated and attempted to phone pt. on his cell phone. Pt is not answering, however Nursing states that it is working as he was talking to his daughter; Almita, on it this morning. Pt Care Nurse also provides the phone number for Daughter; Almita Funmi - [phone]. She answers right away and states that she hopes he is not going to be d/c'd for several more days anyways.
--- NOTE | 2020-01-05 14:43 | ECG_ITS ---
[facility] ED Test Date: 2020-01-05 Pat Name: Lb Garcia Department: Room: ICU19 Gender: Male Dress Finisher: : 1950 Requested By: Keke Yanez Order Number: [id number] Flower MD: Tanesha Fink M.D. Measurements Intervals [place] Rate: 56 P: 18 WI: 150 QRS: -14 QRSD: 112 T: 5 QT: 479 QTc: 465 Interpretive Statements SINUS BRADYCARDIA MODERATE INTRAVENTRICULAR CONDUCTION DELAY [110+ ms QRS DURATION] PROLONGED QT INTERVAL Compared to ECG 01/02/2020 08:00:20 Intraventricular conduction delay now present Prolonged QT interval now present Left-axis deviation no longer present T-wave abnormality no longer present Electronically Signed On 01-10-2020 19:42:28 [employer] CAPTAIN by Tanesha Fink M.D. [id number]
--- NOTE | 2020-01-05 14:43 | PM.PN ---
Subjective Subjective: Interval history: On 3 L NC, had 825 mL urine output overnight, increased leukocytosis, ANC-370, already on isolation precautions. Inflammatory markers trending up. Ambulated a little further with PT this AM, noted to have a somewhat unsteady gait. Fatigues easily though motivated to participate in out of bed activity. Medications: Reviewed: Yes Medication Review Details: Active Medications Generic Name Dose Route Start Last Admin Trade Name Freq PRN Reason Stop Dose Admin Acetaminophen 650 mg 01/01/20 16:22 01/03/20 19:00 Tylenol PO 650 mg Q4H PRN Administration MILD PAIN OR INCR EASE TEMP Albuterol Sulfate 2 puff 12/29/19 23:49 01/05/20 06:08 Ventolin INHALATION 2 puff Q4H.RESPIRATORY P RN Administration SHORTNESS OF LILIA TH Apixaban 5 mg 12/31/19 09:00 01/05/20 08:05 Eliquis PO 5 mg BID ROWAN Administration Dexamethasone 6 mg 12/30/19 08:45 01/05/20 08:05 Decadron IVP 6 mg Q24H ROWAN Administration Dextrose 25 ml 12/29/19 23:49 D50w IVP ONCE PRN hypoglycemia prot ocol Protocol Dextrose 50 ml 12/29/19 23:49 D50w IVP PRN PRN hypoglycemia prot ocol Protocol Finasteride 5 mg 12/30/19 09:00 01/05/20 08:04 Proscar PO 5 mg DAILY ROWAN Administration Glucagon 1 mg 12/29/19 23:49 Glucagen IM ONCE PRN Adult Acute Hypog lycemia Prot. Protocol Dextrose 500 mls @ 100 mls /hr 12/29/19 23:49 D5w IV ONCE PRN Adult Acute Hypog lycemia Prot Protocol Vancomycin HCl 1,5 00 mg/ 250 mls @ 250 mls /hr 12/30/19 10:00 01/05/20 12:17 Sodium Chloride IV Infused Q12H ROWAN Infusion Protocol remdesivir (EUA) 1 00 mg/ 100 mls @ 100 mls /hr 01/03/20 09:00 01/05/20 10:22 Sodium Chloride IV 01/06/20 09:59 Infused Q24H ROWAN Infusion Imipenem/Cilastati n Sodium 500 100 mls @ 200 mls /hr 01/03/20 15:00 01/05/20 14:18 mg/ Sodium Chlor bryon IV 200 mls/hr Q6H ROWAN Administration Protocol Azithromycin 500 m g/ Sodium 250 mls @ 250 mls /hr 01/05/20 14:45 Chloride IV Q24H ROWAN Protocol Ibuprofen 600 mg 01/01/20 19:00 01/02/20 16:15 Motrin PO 600 mg Q6H PRN Administration MILD PAIN OR INCR EASE TEMP Insulin Aspart 0 unit 12/30/19 08:00 01/05/20 12:17 Novolog SUBCUT Not Given WM[facility]BEDTIME [facility] Protocol Lorazepam 1 mg 01/03/20 09:51 Ativan IVP Q8H PRN ANXIETY Metoprolol Tartrat e 2.5 mg 01/03/20 09:51 Metoprolol Tartr ate IV Q4H PRN HEART RATE-HIGH Metoprolol Tartrat e 12.5 mg 01/03/20 18:00 01/05/20 08:04 Lopressor PO 12.5 mg BID ROWAN Administration No Known Allergies Allergy (Verified 12/29/19 14:57) Vitals/I&O/Wt Last Vital Signs Temp 97.9 F 01/05/20 12:00 Pulse 60 01/05/20 14:00 Resp 31 H 01/05/20 14:00 BP 120/79 01/05/20 14:00 Pulse Ox 96 01/05/20 14:00 01/04/20 01/05/20 01/05/20 22:59 06:59 14:59 Intake Total 440 / 2220 100 / 2320 970.000 / 970.000 Output Total 2300 / 3900 425 / 4325 Balance -1860 / -1680 -325 / -2005 970.000 / 970.000 Physical Exam Const: COMMON NORMALS: no acute distress, patient oriented x3 and alert GENERAL APPEARANCE: cooperative, comfortable and ill appearing ORIENTATION/CONSCIOUSNESS: Yes awake OTHER: -fatigued, resting in recliner by bedside HENMT: COMMON NORMALS: normocephalic, atraumatic, hearing grossly normal bilaterally and moist oral mucous membranes HEAD & SCALP: normocephalic and atraumatic Eye: COMMON NORMALS: Equal, round and reactive pupils present, EOMs intact bilaterally and conjunctivae normal CONJUNCTIVA: Yes conjunctivae normal PUPIL: Yes Equal, round and reactive pupils present Neck/C-Spine: COMMON NORMALS: full ROM GENERAL: Yes normal visual inspection and Yes trachea midline Resp: COMMON NORMALS: normal respiratory effort, No retractions and No use of accessory muscles EFFORT & INSPECTION: Yes able to speak in complete sentences, Yes symmetric chest movement and Yes tachypneic AUSCULTATION: rhonchi and diminished lung sounds OTHER: -on 3 L HFNC Cardio: COMMON NORMALS: regular rate, regular rhythm, S1 normal heart sound present, S2 normal heart sound present and No murmurs present (Cardio) RATE: regular rate RHYTHM: regular rhythm HEART SOUNDS: S1 normal heart sound present and S2 normal heart sound present GI: COMMON NORMALS: Normal to inspection, nondistended, normoactive bowel sounds present, Soft to palpation and non-tender PALPATION: Yes Soft to palpation Extremity: COMMON NORMALS: normal to inspection, full ROM and no clubbing, cyanosis or edema; negative for no pedal edema Neuro: COMMON NORMALS: patient oriented x3, moves all extremities, no focal motor deficits and no sensory deficits noted SENSORIUM/ORIENTATION: Yes alert OTHER: -unsteady gait though ambulated for longer interval Psych: COMMON NORMALS: mental status grossly normal, Normal thought process present, cooperative, normal affect and speech normal SPEECH: Yes normal speech THOUGHT PROCESS: Normal thought process present Skin: COMMON NORMALS: no rashes or lesions noted, no jaundice, no petechiae and no mottling GENERAL SKIN EXAM: no rashes or lesions noted Data : 01/05/20 03:55 01/05/20 03:55 A&P Assessment and plan (1) COVID-19: -Noted to have COVID-19 pneumonia in setting of underlying immunocompromise secondary to CLL, on current treatment -on day 4 of remdesivir -Continue IV steroids, empiric antibiotic therapy, supportive care -afebrile, episodic hypertension, tachycardia, tachypnea; continue to monitor vital signs -Continue supplemental oxygen as needed, not oxygen dependent at baseline, home oxygen evaluation prior to discharge if appropriate -CT chest with noted groundglass opacities bilaterally, pleural effusions -continue to trend inflammatory markers; elevated and with noted LDH and ferritin levels, meets criteria for more severe disease; started on remdesevir and continue to closely monitor LFTs -blood cx: prelim negative -repeat CXR shows increased infiltrates bilaterally; add azithromycin Status: Acute (2) Abnormal transaminases: -Likely medication induced versus related to COVID-19 infection -Negative hepatitis, HIV -Imaging noted including gallbladder ultrasound, abdominal CT which showed presence of gallstones, mild hepatic steatosis -Continue to trend LFTs; improving Status: Acute (3) CLL (chronic lymphocytic leukemia): -Follows up with oncology Dr. Plaza -Has been on treatment with bendamustine, Rituxan; last dose was in November -Noted significant leukocytosis part of which is steroid-induced; improving, neutropenic (ANC-370) Status: Chronic (4) Essential (primary) hypertension: -Continue to monitor vital signs Status: Chronic (5) Type 2 diabetes mellitus without complications: -A1c-5.8 (11/2019) -Acczari, ISS Status: Chronic Qualifiers: Diabetes mellitus nursing home insulin use: without superintendent container terminal use Qualified Code(s): E11.9 - Type 2 diabetes mellitus without complications (6) NIKIA on CPAP: Status: Chronic (7) BPH (benign prostatic hyperplasia): -noted enlarged prostate on imaging -continue finasteride -follows up with Dr. Chowdary Status: Chronic Qualifiers: Lower urinary tract symptom presence: symptoms absent Qualified Code(s): N40.0 - Benign prostatic hyperplasia without lower urinary tract symptoms (8) Paroxysmal atrial fibrillation: -noted to have a short run of atrial fibrillation on Holter monitor -has been following up with Dr. Murillo -Echo (08/2019): EF=60%, G1DD, trace [place], trace MR -no AC due to previously noted thrombocytopenia, chemotherapy; on Eliquis here -telemetry monitoring -on BB Status: Acute (9) Dyslipidemia: -statin on hold Status: Chronic Additional A&P Information -regular diet as tolerated -GI ppx with famotidine -DVT ppx not needed as on Eliquis -Physical deconditioning; PT evaluation appreciated -Dispo: home, lives alone but his daughter can move in with him and help him as needed on discharge; would benefit from home health -Code status: DNR/DNI Attestations Medical Necessity Statement*: Patient requires hospitalization for continued management of COVID-19 pneumonia, on antiviral and antibiotic treatment, neutropenic. Time Spent in Patient Care: 16 - 35 minutes (>than 50% of time spent in counselling and/or direct pt care on unit). Coding Level of Care Code Acute Mailroom Personnel for g Fwd Exam Comprehensive Diagnoses COVID-19 U07.1 Abnormal transaminases R74.8 CLL (chronic lymphocytic leukemia) C91.10 Essential (primary) hypertension I10 Type 2 diabetes mellitus without complications E11.9 Diabetes mellitus nursing home insulin use: without superintendent container terminal use NIKIA on CPAP G47.33; Z99.89 BPH (benign prostatic hyperplasia) N40.0 Lower urinary tract symptom presence: symptoms absent Paroxysmal atrial fibrillation I48.0 Dyslipidemia E78.5
[2020-01-05] MEDS: azithromycin 500 MG in sodium chloride 0.9% 250 ML 250 MG IV (15:29)
[2020-01-05 16:16] LABS: Glucose Point of Care 153 mg/dL (70-110)
--- NOTE | 2020-01-05 17:34 | PC.NURSE ---
LOST ACCESS TO IV'S. MD MOSLEY AWARE. ICU WAS CONTACTED AND DR MOSLEY LET THEM KNOW AN ULTRASOUND IV NEEDS TO BE PLACED. [employer]ICE [employer]PATCHER MANDO IS AWARE WELL.
--- NOTE | 2020-01-05 19:37 | PC.NURSE ---
ASSUMED CARE OF PT. RESTING IN BED. DENIES PAIN. URINAL WAS EMPTIED AND ROOM WAS STRAIGHTENED UP. WILL CONTINUE TO MONITOR.
[2020-01-05 20:21] LABS: Glucose Point of Care 176 mg/dL (70-110)
[2020-01-06] VITALS (28 sets, daily range): BP systolic 93–193; BP diastolic 62–92; PULSE 52–80; RESP 16–33; TEMP 36.5–36.7; O2SAT 91–99
--- NOTE | 2020-01-06 06:22 | PC.NURSE ---
PT IS RESTING IN BED AT THIS TIME. PT IS WANTING A SPECIALIST TO DRAW BLOOD. DR NOTIFIED THAT LABS WEREN'T DRAWN. PT DENIES PAIN. HAS 0 C/O AT THIS TIME. WILL GIVE REPORT TO ONCOMING NURSE. WILL CONTINUE TO MONITOR.
[2020-01-06 06:39] LABS: Glucose Point of Care 98 mg/dL (70-110)
[2020-01-06] MEDS: albuterol 8 gm MDI 2 PUFF INHALATION (08:41)
[2020-01-06] MEDS: metoprolol tartrate 25 mg Tablet 12.5 MG PO ×2 (09:24→17:22)
[2020-01-06] MEDS: apixaban 5 mg Tablet PO ×2 (09:24→17:22)
[2020-01-06] MEDS: dexamethasone 4 mg/mL INJ 6 MG IVP (09:24)
[2020-01-06] MEDS: finasteride 5 mg Tablet PO (09:51)
[2020-01-06 11:42] LABS: Glucose Point of Care 161 mg/dL (70-110)
--- NOTE | 2020-01-06 13:15 | XRR_ITS ---
PROCEDURE INFORMATION: Exam: XR Chest, 1 View Exam date and time: 01/06/2020 1:29 PM Age: 69 years old Clinical indication: Device placement; Patient HX: R picc line placement; Additional info: Picc line placement confirmation TECHNIQUE: Imaging protocol: XR of the chest Views: 1 view. COMPARISON: CR XR chest 1V portable [id number] 01/05/2020 6:45 AM FINDINGS: Lungs: No significant interval change diffuse interstitial and alveolar opacities, again greatest at the apices. Pleural space: No obvious pleural effusion or pneumothorax. The right lateral hemithorax is partially excluded. Heart/Mediastinum: Cardiac silhouette upper normal. Bones/joints: Right upper extremity PICC partially imaged with tip overlying proximal right clavicle and 1st rib, in the region of the subclavian vein. XR/XR chest 1V portable [id number] IMPRESSION: 1. Partially imaged right upper extremity PICC with tip in the region of the subclavian vein. 2. No significant change diffuse interstitial and alveolar opacities may be related to atypical pneumonia.
--- NOTE | 2020-01-06 13:41 | P.PN_ITS ---
Subjective Subjective: Interval history: Due to poor peripheral IV access unable to get lab draws, PICC line placement requested. On 2 L nasal cannula, hemodynamically stable though noted to be tachypneic. On day 5 of remdesivir. PICC line placed this afternoon, labs obtained with noted decreased leukocytosis, stable hemoglobin, decrease in most inflammatory markers, has remained on 2 L NC t hroughout the day. Has been in good spirits following conversation with family this morning. Medications: Reviewed: Yes Medication Review Details: Active Medications Generic Name Dose Route Start Last Admin Trade Name Freq PRN Reason Stop Dose Admin Acetaminophen 650 mg 01/01/20 16:22 01/03/20 19:00 Tylenol PO 650 mg Q4H PRN Administration MILD PAIN OR INCR EASE TEMP Albuterol Sulfate 2 puff 12/29/19 23:49 01/06/20 08:41 Ventolin INHALATION 2 puff Q4H.RESPIRATORY P RN Administration SHORTNESS OF LILIA TH Apixaban 5 mg 12/31/19 09:00 01/06/20 09:24 Eliquis PO 5 mg BID ROWAN Administration Dexamethasone 6 mg 12/30/19 08:45 01/06/20 09:24 Decadron IVP 6 mg Q24H ROWAN Administration Dextrose 25 ml 12/29/19 23:49 D50w IVP ONCE PRN hypoglycemia prot ocol Protocol Dextrose 50 ml 12/29/19 23:49 D50w IVP PRN PRN hypoglycemia prot ocol Protocol Finasteride 5 mg 12/30/19 09:00 01/06/20 09:51 Proscar PO 5 mg DAILY ROWAN Administration Glucagon 1 mg 12/29/19 23:49 Glucagen IM ONCE PRN Adult Acute Hypog lycemia Prot. Protocol Dextrose 500 mls @ 100 mls /hr 12/29/19 23:49 D5w IV ONCE PRN Adult Acute Hypog lycemia Prot Protocol Vancomycin HCl 1,5 00 mg/ 250 mls @ 250 mls /hr 12/30/19 10:00 01/06/20 09:26 Sodium Chloride IV 250 mls/hr Q12H ROWAN Administration Protocol Imipenem/Cilastati n Sodium 500 100 mls @ 200 mls /hr 01/03/20 15:00 01/06/20 11:32 mg/ Sodium Chlor bryon IV Infused Q6H ROWAN Infusion Protocol Azithromycin 500 m g/ Sodium 250 mls @ 250 mls /hr 01/05/20 14:45 01/06/20 11:32 Chloride IV Infused Q24H ROWAN Infusion Protocol Ibuprofen 600 mg 01/01/20 19:00 01/02/20 16:15 Motrin PO 600 mg Q6H PRN Administration MILD PAIN OR INCR EASE TEMP Insulin Aspart 0 unit 12/30/19 08:00 01/06/20 11:32 Novolog SUBCUT 2 unit WM&BEDTIME ROWAN Administration Protocol Lorazepam 1 mg 01/03/20 09:51 Ativan IVP Q8H PRN ANXIETY Metoprolol Tartrat e 2.5 mg 01/03/20 09:51 Metoprolol Tartr ate IV Q4H PRN HEART RATE-HIGH Metoprolol Tartrat e 12.5 mg 01/03/20 18:00 01/06/20 09:24 Lopressor PO 12.5 mg BID ROWAN Administration No Known Allergies Allergy (Verified 12/29/19 14:57) Vitals/I&O/Wt Last Vital Signs Temp 98.0 F 01/06/20 04:00 Pulse 69 01/06/20 13:00 Resp 31 H 01/06/20 13:00 BP 145/70 01/06/20 13:34 Pulse Ox 93 01/06/20 12:00 01/05/20 01/06/20 01/06/20 22:59 06:59 14:59 Intake Total 830 / 1800.000 100 / 1900.000 750 / 750 Output Total 900 / 900 700 / 1600 950 / 950 Balance -70 / 900.000 -600 / 300.000 -200 / -200 Physical Exam Const: COMMON NORMALS: no acute distress, patient oriented x3 and alert GE NERAL APPEARANCE: cooperative and comfortable ORIENTATION/CONSCIOUSNESS: Yes awake OTHER: -fatigued, resting in bed HENMT: COMMON NORMALS: normocephalic, atraumatic, hearing grossly normal bilaterally and moist oral mucous membranes HEAD & SCALP: normocephalic and atraumatic Eye: COMMON NORMALS: Equal, round and reactive pupils present, EOMs intact bi laterally and conjunctivae normal CONJUNCTIVA: Yes conjunctivae normal PUPIL: Yes Equal, round and reactive pupils present Neck/C-Spine: COMMON NORMALS: full ROM GENERAL: Yes normal visual insp ection and Yes trachea midline Resp: COMMON NORMALS: normal respiratory effort, No retractions and No use of accessory muscles EFFORT & INSPECTION: Yes able to speak in complete sentences, Yes symmetric chest movement and Yes tachypneic AUSCULTATION: rhonchi and diminished lung sounds OTHER: -on 2 L HFNC Cardio: COMMON NORMALS: regular rate, regular rhythm, S1 normal heart sound present, S2 normal heart sound present and No murmurs present (Cardio) RATE: regular rate RHYTHM: regular rhythm HEART SOUNDS: S1 normal heart sound present and S2 normal heart sound present GI: COMMON NORMALS: Normal to inspection, nondistended, normoactive bowel sounds present, Soft to palpation and non-tender PALPATION: Yes Soft to palpation Extremity: COMMON NORMALS: normal to inspection, full ROM and no clubbing, cyanosis or edema; negative for no pedal edema Neuro: COMMON NORMALS: patient oriented x3, moves all extremities, no focal motor deficits and no sensory deficits noted SENSORIUM/ORIENTATION: Yes alert OTHER: -unsteady gait though ambulated for longer interval Psych: COMMON NORMALS: mental status grossly normal, Normal thought process present, cooperative, normal affect and speech normal SPEECH: Yes normal speech THOUGHT PROCESS: Normal thought process present Skin: COMMON NORMALS: no rashes or lesions noted, no jaundice, no petechiae and no mottling GENERAL SKIN EXAM: no rashes or lesions noted Data : 01/06/20 14:54 01/05/20 03:55 A&P Assessment and plan (1) COVID-19: -Noted to have COVID-19 pneumonia in setting of underlying immunocompromise secondary to CLL, on current treatment -on day 5 of remdesivir -Continue IV steroids, empiric antibiotic therapy, supportive care -afebrile, episodic hypertension, tachycardia, tachypnea; continue to monitor vital signs -Continue supplemental oxygen as needed, not oxygen dependent at baseline, home oxygen evaluation prior to discharge if appropriate -CT chest with noted groundglass opacities bilaterally, pleural effusions -continue to trend inflammatory markers; elevated and with noted LDH and ferritin levels, meets criteria for more severe disease; started on remdesevir and continue to closely monitor LFTs -blood cx: prelim negative -repeat CXR shows increased infiltrates bilaterally; continue azithromycin Status: Acute (2) Abnormal transaminases: -Likely medication induced versus related to COVID-19 infection -Negative hepatitis, HIV -Imaging noted including gallbladder ultrasound, abdominal CT which showed presence of gallstones, mild hepatic steatosis -Continue to trend LFTs; improving Status: Acute (3) CLL (chronic lymphocytic leukemia): -Follows up with oncology Dr. Plaza -Has been on treatment with bendamustine, Rituxan; last dose was in November -Noted significant leukocytosis part of which is steroid-induced; improving, neutropenic (ANC-350) Status: Chronic (4) Essential (primary) hypertension: -Continue to monitor vital signs Status: Chronic (5) Type 2 diabetes mellitus without complications: -A1c-5.8 (11/2019) -Accucheks, ISS, hypoglycemia precautions Status: Chronic Qualifiers: Diabetes mellitus cam milling machine operator insulin use: without cam milling machine operator use Qualified Code(s): E11.9 - Type 2 diabetes mellitus without complications (6) NIKIA on CPAP: Status: Chronic (7) BPH (benign prostatic hyperplasia): -noted enlarged prostate on imaging -continue finasteride -follows up with Dr. Chowdary Status: Chronic Qualifiers: Lower urinary tract symptom presence: symptoms absent Qualified Code(s): N40.0 - Benign prostatic hyperplasia without lower urinary tract symptoms (8) Paroxysmal atrial fibrillation: -noted to have a short run of atrial fibrillation on Holter monitor -has been following up with Dr. Murillo -Echo (08/2019): EF=60%, G1DD, trace [place], trace MR -no AC due to previously noted thrombocytopenia, chemotherapy; on Eliquis here -telemetry monitoring -on BB Status: Acute (9) Dyslipidemia: -statin on hold Status: Chronic Additional A&P Information -regular diet as tolerated -PICC line placement requested due to poor peripheral IV access -GI ppx with famotidine -DVT ppx not needed as on Eliquis -Physical deconditioning; PT evaluation appreciated -Dispo: home, lives alone but his daughter can move in with him and help him as needed on discharge; would benefit from home health -Code status: DNR/DNI Attestations Medical Necessity Statement*: Patient requires hospitalization for continued treatment of COVID-19 pneumonia and underlying immunocompromise secondary to malignancy, on antibiotic and antiviral treatment. Time Spent in Patient Care: 16 - 35 minutes (>than 50% of time spent in counselling and/or direct pt care on unit) . Coding Level of Care Code Acute Shake Table Operator for g Fwd Exam Comprehensive Diagnoses COVID-19 U07.1 Abnormal transaminases R74.8 CLL (chronic lymphocytic leukemia) C91.10 Essential (primary) hypertension I10 Type 2 diabetes mellitus without complications E11.9 Diabetes mellitus correction insulin use: without correction use NIKIA on CPAP G47.33; Z99.89 BPH (benign prostatic hyperplasia) N40.0 Lower urinary tract symptom presence: symptoms absent Paroxysmal atrial fibrillation I48.0 Dyslipidemia E78.5
--- NOTE | 2020-01-06 14:11 | PC.NURSE ---
MIDLINE Midline placed RIGHT arm. Was unable to place PICC due to catheter tip curling/kinking at mid-clavicular line, multiple attempts to pass into SVC. PICC pulled and cut to 20 cm for MIDLINE. Line flushes and returns without difficulty. Disregard 01/06/20 cxray for placement. Primary nurse and provider aware.
[2020-01-06] MEDS: azithromycin 500 MG in sodium chloride 0.9% 250 ML 250 MG IV (14:30)
[2020-01-06 15:05] LABS: Basophils # 0.1 10^3/uL (0.0-0.1); Basophils % 0.5 %; Hemoglobin 9.3 g/dL (11.7-16.6); Lymphocytes # 18.1 10^3/uL (0.8-4.8); Lymphocytes % 97.1 %; Mean Corpuscular Hemoglobin 28.3 pg (28.0-34.0); Mean Corpuscular Volume 94.2 fL (80-94); Mean Platelet Volume 11.5 fL (7.4-10.4); Monocytes # 0.1 10^3/uL (0.2-0.9); Monocytes % 0.5 %; Neutrophils % 1.8 %; Nucleated Red Blood Cells % 0 %; Platelet Count 188 10^3/cmm (130-400); Red Blood Count 3.29 10^6/uL (4.1-5.3); Red Cell Distribution Width 14.9 % (12.1-15.1); White Blood Count 18.7 10^3/uL (4.0-10.0)
[2020-01-06 15:18] LABS: Fibrinogen 503 mg/dL (174-498)
[2020-01-06 15:23] LABS: D Dimer 2.07 ug/mIFEU (0-0.59)
[2020-01-06 15:34] LABS: C Reactive Protein 30.3 mg/L (0.0-4.9)
[2020-01-06 15:44] LABS: NT Pro B Type Natriuretic Pept 423 pg/mL (0-125)
[2020-01-06 15:45] LABS: Neutrophils # 0.35 10^3/uL (1.8-7.7)
[2020-01-06 15:46] LABS: Slide Review Slide Review Perform
[2020-01-06 16:00] LABS: Ferritin 2578 ng/mL (30-400); Lactate Dehydrogenase 501 U/L (135-225)
[2020-01-06 16:34] LABS: Glucose Point of Care 166 mg/dL (70-110)
--- NOTE | 2020-01-06 18:53 | PC.NURSE ---
MD yoly Yanez of anc level.
[2020-01-06 20:59] LABS: Glucose Point of Care 128 mg/dL (70-110)
[2020-01-07] VITALS (30 sets, daily range): BP systolic 110–142; BP diastolic 70–86; PULSE 53–81; RESP 16–28; TEMP 36.6–37; O2SAT 80–97
[2020-01-07 04:04] LABS: Basophils # 0.1 10^3/uL (0.0-0.1); Basophils % 0.5 %; Hematocrit 30.8 % (42.0-52.0); Lymphocytes # 22.3 10^3/uL (0.8-4.8); Lymphocytes % 96.1 %; Mean Corpuscular HGB Conc 29.2 g/dL (30.0-36.0); Mean Corpuscular Hemoglobin 27.4 pg (28.0-34.0); Mean Corpuscular Volume 93.9 fL (80-94); Mean Platelet Volume 11.1 fL (7.4-10.4); Monocytes # 0.5 10^3/uL (0.2-0.9); Neutrophils % 1.3 %; Nucleated Red Blood Cells % 0 %; Platelet Count 156 10^3/cmm (130-400); Red Blood Count 3.28 10^6/uL (4.1-5.3); Red Cell Distribution Width 14.7 % (12.1-15.1); White Blood Count 23.2 10^3/uL (4.0-10.0)
[2020-01-07 04:30] LABS: Fibrinogen 461 mg/dL (174-498)
[2020-01-07 04:31] LABS: Alanine Aminotransferase 111 U/L (0-41); Albumin Level 2.3 g/dL (3.5-5.2); Alkaline Phosphatase 74 IU/L (40-130); Aspartate Amino Transferase 95 U/L (0-40); C Reactive Protein 23.5 mg/L (0.0-4.9); Globulin 4.1 g/dL (1.3-4.6); Total Bilirubin 0.6 mg/dL (0.15-1.2); Total Protein 6.4 g/dL (6.6-8.7)
[2020-01-07 04:38] LABS: D Dimer 2.93 ug/mIFEU (0-0.59)
[2020-01-07 04:49] LABS: Ferritin 2197 ng/mL (30-400)
[2020-01-07 04:50] LABS: Lactate Dehydrogenase 353 U/L (135-225)
[2020-01-07 07:40] LABS: Glucose Point of Care 87 mg/dL (70-110)
[2020-01-07] MEDS: albuterol 8 gm MDI 2 PUFF INHALATION ×3 (08:30→21:27)
[2020-01-07] MEDS: apixaban 5 mg Tablet PO ×2 (08:35→17:49)
[2020-01-07] MEDS: dexamethasone 4 mg/mL INJ 6 MG IVP (08:35)
[2020-01-07] MEDS: metoprolol tartrate 25 mg Tablet 12.5 MG PO ×2 (08:35→17:49)
[2020-01-07] MEDS: finasteride 5 mg Tablet PO (08:36)
--- NOTE | 2020-01-07 09:01 | P.PN_ITS ---
Subjective Subjective: Interval history: Continued neutropenia, hypertensive so will resume ACEi, increased leukocytosis, stable Hg. Slight trend up in LFTs and D- dimer, otherwise downtrending inflammatory markers. Resting in recliner, in good spirits, no apparent distress, no acute overnight events. Medications: Reviewed: Yes Medication Review Details: Active Medications Generic Name Dose Route Start Last Admin Trade Name Freq PRN Reason Stop Dose Admin Acetaminophen 650 mg 01/01/20 16:22 01/03/20 19:00 Tylenol PO 650 mg Q4H PRN Administration MILD PAIN OR INCR EASE TEMP Albuterol Sulfate 2 puff 12/29/19 23:49 01/06/20 08:41 Ventolin INHALATION 2 puff Q4H.RESPIRATORY P RN Administration SHORTNESS OF LILIA TH Apixaban 5 mg 12/31/19 09:00 01/07/20 08:35 Eliquis PO 5 mg BID ROWAN Administration Dexamethasone 6 mg 12/30/19 08:45 01/07/20 08:35 Decadron IVP 6 mg Q24H ROWAN Administration Dextrose 25 ml 12/29/19 23:49 D50w IVP ONCE PRN hypoglycemia prot ocol Protocol Dextrose 50 ml 12/29/19 23:49 D50w IVP PRN PRN hypoglycemia prot ocol Protocol Finasteride 5 mg 12/30/19 09:00 01/07/20 08:36 Proscar PO 5 mg DAILY ROWAN Administration Glucagon 1 mg 12/29/19 23:49 Glucagen IM ONCE PRN Adult Acute Hypog lycemia Prot. Protocol Dextrose 500 mls @ 100 mls /hr 12/29/19 23:49 D5w IV ONCE PRN Adult Acute Hypog lycemia Prot Protocol Vancomycin HCl 1,5 00 mg/ 250 mls @ 250 mls /hr 12/30/19 10:00 01/06/20 23:11 Sodium Chloride IV Infused Q12H ROWAN Infusion Protocol Imipenem/Cilastati n Sodium 500 100 mls @ 200 mls /hr 01/03/20 15:00 01/07/20 08:35 mg/ Sodium Chlor bryon IV 200 mls/hr Q6H ROWAN Administration Protocol Azithromycin 500 m g/ Sodium 250 mls @ 250 mls /hr 01/05/20 14:45 01/07/20 07:00 Chloride IV Infused Q24H ROWAN Infusion Protocol Ibuprofen 600 mg 01/01/20 19:00 01/02/20 16:15 Motrin PO 600 mg Q6H PRN Administration MILD PAIN OR INCR EASE TEMP Insulin Aspart 0 unit 12/30/19 08:00 01/07/20 07:54 Novolog SUBCUT Not Given WM&BEDTIME ROWAN Protocol Lorazepam 1 mg 01/03/20 09:51 Ativan IVP Q8H PRN ANXIETY Metoprolol Tartrat e 2.5 mg 01/03/20 09:51 Metoprolol Tartr ate IV Q4H PRN HEART RATE-HIGH Metoprolol Tartrat e 12.5 mg 01/03/20 18:00 01/07/20 08:35 Lopressor PO 12.5 mg BID ROWAN Administration No Known Allergies Allergy (Verified 12/29/19 14:57) Vitals/I&O/Wt Last Vital Signs Temp 98.0 F 01/07/20 04:00 Pulse 55 L 01/07/20 07:00 Resp 16 01/07/20 07:00 BP 142/80 01/07/20 04:00 Pulse Ox 92 01/07/20 07:00 01/06/20 01/07/20 01/07/20 23:59 06:59 14:59 Intake Total 450 / 450 Output Total Balance 450 / 450 Physical Exam Const: COMMON NORMALS: no acute distress, patient oriented x3 and alert GENERAL APPEARANCE: cooperative and comfortable ORIENTATION/CONSCIOUSNESS: Yes awake OTHER: -in good spirits, sitting in recliner HENMT: COMMON NORMALS: normocephalic, atraumatic, hearing grossly normal bilaterally and moist oral mucous membranes HEAD & SCALP: normocephalic and atraumatic Eye: COMMON NORMALS: Equal, round and reactive pupils present, EOMs intact bilaterally and conjunctivae normal CONJUNCTIVA: Yes conjunctivae normal PUPIL: Yes Equal, round and reactive pupils present Neck/C-Spine: COMMON NORMALS: full ROM GENERAL: Yes normal visual inspection and Yes trachea midline Resp: COMMON NORMALS: normal respiratory effort, No retractions and No use of accessory muscles EFFORT & INSPECTION: Yes able to speak in complete sentences, Yes symmetric chest movement and Yes tachypneic AUSCULTATION: rhonchi and diminished lung sounds OTHER: -on 2 L NC Cardio: COMMON NORMALS: regular rate, regular rhythm, S1 normal heart sound present, S2 normal heart sound present and No murmurs present (Cardio) RATE: regular rate RHYTHM: regular rhythm HEART SOUNDS: S1 normal heart sound present and S2 normal heart sound present GI: COMMON NORMALS: Normal to inspection, nondistended, normoactive bowel sounds present, Soft to palpation and non-tender PALPATION: Yes Soft to palpation Extremity: COMMON NORMALS: normal to inspection, full ROM and no clubbing, cyanosis or edema; negative for no pedal edema Neuro: COMMON NORMALS: patient oriented x3, moves all extremities, no focal motor deficits and no sensory deficits noted SENSORIUM/ORIENTATION: Yes alert OTHER: -unsteady gait though improving Psych: COMMON NORMALS: mental status grossly normal, Normal thought process present, cooperative, normal affect and speech normal SPEECH: Yes normal speech THOUGHT PROCESS: Normal thought process present Skin: COMMON NORMALS: no rashes or lesions noted, no jaundice, no petechiae and no mottling GENERAL SKIN EXAM: no rashes or lesions noted Data : 01/07/20 03:35 01/05/20 03:55 Micro: Microbiology 01/02/20 01:45 Blood Culture - Final Blood NO GROWTH AFTER 5 DAYS 01/02/20 01:45 Blood Culture - Final Blood NO GROWTH AFTER 5 DAYS A&P Assessment and plan (1) COVID-19: -Noted to have COVID-19 pneumonia in setting of underlying immunocompromise secondary to CLL, on current treatment -s/p 5 days of remdesivir (01/05) -Continue IV steroids, empiric antibiotic therapy, supportive care -hypertensive, continue to monitor vital signs -Continue supplemental oxygen as needed, not oxygen dependent at baseline, home oxygen evaluation prior to discharge if appropriate -CT chest with noted groundglass opacities bilaterally, pleural effusions -continue to trend inflammatory markers; down-trending -blood cx: prelim negative -repeat CXR shows increased infiltrates bilaterally; continue azithromycin Status: Acute (2) Abnormal transaminases: -Likely medication induced versus related to COVID-19 infection -Negative hepatitis, HIV -Imaging noted including gallbladder ultrasound, abdominal CT which showed presence of gallstones, mild hepatic steatosis -Continue to trend LFTs; slight increase today Status: Acute (3) CLL (chronic lymphocytic leukemia): -Follows up with oncology Dr. Plaza -Has been on treatment with bendamustine, Rituxan; last dose was in November -Noted significant leukocytosis part of which is steroid-induced; improving, neutropenic (ANC-300) Status: Chronic (4) Essential (primary) hypertension: -Continue to monitor vital signs; hypertensive so resume ACEi Status: Chronic (5) Type 2 diabetes mellitus without complications: -A1c-5.8 (11/2019) -Accucheks, ISS, hypoglycemia precautions Status: Chronic Qualifiers: Diabetes mellitus [facility] insulin use: without [facility] use Qualified Code(s): E11.9 - Type 2 diabetes mellitus without complications (6) NIKIA on CPAP: Status: Chronic (7) BPH (benign prostatic hyperplasia): -noted enlarged prostate on imaging -continue finasteride -follows up with Dr. Chowdary Status: Chronic Qualifiers: Lower urinary tract symptom presence: symptoms absent Qualified Code(s): N40.0 - Benign prostatic hyperplasia without lower urinary tract symptoms (8) Paroxysmal atrial fibrillation: -noted to have a short run of atrial fibrillation on Holter monitor -has been following up with Dr. Murillo -Echo (08/2019): EF=60%, G1DD, trace [place], trace [place] -no AC due to previously noted thrombocytopenia, chemotherapy; on Eliquis here -telemetry monitoring -on BB Status: Acute (9) Dyslipidemia: -statin on hold Status: Chronic Additional A&P Information -regular diet as tolerated -PICC line placed due to poor peripheral IV access -GI ppx with famotidine -DVT ppx not needed as on Eliquis -Physical deconditioning; PT evaluation appreciated -Dispo: home, lives alone but his daughter can move in with him and help him as needed on discharge; would benefit from home health -Code status: DNR/DNI -updated daughter Almita Choudhary Attestations Medical Necessity Statement*: Patient requires hospitalization for continued management of COVID-19 pneumonia, remains neutropenic. Time Spent in Patient Care: 16 - 35 minutes (>than 50% of time spent in counselling and/or direct pt care on unit) . 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
--- NOTE | 2020-01-07 11:03 | PC.SOCIAL ---
IMM Updated Updated pt, via phone, Pg 2 IMM. No questions voiced. Signed, dated, & timed the copy for chart.
[2020-01-07 11:28] LABS: Glucose Point of Care 121 mg/dL (70-110)
[2020-01-07] MEDS: azithromycin 500 MG in sodium chloride 0.9% 250 ML 250 MG IV (15:14)
[2020-01-07 16:46] LABS: Glucose Point of Care 136 mg/dL (70-110)
--- NOTE | 2020-01-07 21:34 | PC.NURSE ---
Pt linens changed.
[2020-01-08] VITALS (30 sets, daily range): BP systolic 117–132; BP diastolic 62–79; PULSE 53–78; RESP 16–29; TEMP 36.4–37.1; O2SAT 90–97
[2020-01-08 04:23] LABS: Basophils # 0.1 10^3/uL (0.0-0.1); Basophils % 0.5 %; Eosinophils % 0.1 %; Hematocrit 30.2 % (42.0-52.0); Hemoglobin 8.8 g/dL (11.7-16.6); Lymphocytes # 20.8 10^3/uL (0.8-4.8); Lymphocytes % 95.2 %; Mean Corpuscular HGB Conc 29.1 g/dL (30.0-36.0); Mean Corpuscular Hemoglobin 27.6 pg (28.0-34.0); Mean Corpuscular Volume 94.7 fL (80-94); Mean Platelet Volume 11.8 fL (7.4-10.4); Monocytes # 0.6 10^3/uL (0.2-0.9); Monocytes % 2.8 %; Neutrophils % 1.4 %; Nucleated Red Blood Cells % 0 %; Platelet Count 139 10^3/cmm (130-400); Red Blood Count 3.19 10^6/uL (4.1-5.3); Red Cell Distribution Width 14.8 % (12.1-15.1); White Blood Count 21.9 10^3/uL (4.0-10.0)
[2020-01-08 04:45] LABS: Fibrinogen 346 mg/dL (174-498)
[2020-01-08 04:49] LABS: Alanine Aminotransferase 89 U/L (0-41); Albumin Level 2.3 g/dL (3.5-5.2); Alkaline Phosphatase 72 IU/L (40-130); D Dimer 3.08 ug/mIFEU (0-0.59); Total Bilirubin 0.5 mg/dL (0.15-1.2); Total Protein 6.3 g/dL (6.6-8.7)
[2020-01-08 04:50] LABS: C Reactive Protein 15.3 mg/L (0.0-4.9)
[2020-01-08 04:55] LABS: Neutrophils # 0.28 10^3/uL (1.8-7.7)
[2020-01-08 05:15] LABS: Aspartate Amino Transferase 64 U/L (0-40); Ferritin 1832 ng/mL (30-400); Lactate Dehydrogenase 351 U/L (135-225)
--- NOTE | 2020-01-08 06:29 | PC.NURSE ---
Pt weight 191.7 per bedscale.
[2020-01-08 07:26] LABS: Glucose Point of Care 85 mg/dL (70-110)
--- NOTE | 2020-01-08 07:35 | PC.NURSE ---
0300 dose of imipenem-cliastatin not given, discussed with pharmacy and timing adjusted. Will give dose now.
[2020-01-08] MEDS: dexamethasone 4 mg/mL INJ 6 MG IVP (07:46)
[2020-01-08] MEDS: apixaban 5 mg Tablet PO ×2 (08:07→17:10)
[2020-01-08] MEDS: finasteride 5 mg Tablet PO (08:07)
[2020-01-08] MEDS: lisinopril 20 mg Tablet PO (08:07)
[2020-01-08] MEDS: metoprolol tartrate 25 mg Tablet 12.5 MG PO ×2 (08:07→17:10)
[2020-01-08] MEDS: albuterol 8 gm MDI 2 PUFF INHALATION ×2 (08:17→20:53)
[2020-01-08 11:54] LABS: Glucose Point of Care 226 mg/dL (70-110)
--- NOTE | 2020-01-08 12:08 | PM.PN ---
Subjective Subjective: Interval history: Reports overall he is doing pretty well. Says that he has been regaining his appetite and sense of smell. Denies any shortness of breath while on nasal cannula. Denies any chest pain or pressure. Denies any pain on swallowing. Denies any nausea vomiting or diarrhea. No headache. Vitals/I&O/Wt Last Vital Signs Temp 98.5 F 01/08/20 10:30 Pulse 68 01/08/20 10:30 Resp 28 H 01/08/20 10:30 BP 118/68 01/08/20 10:30 Pulse Ox 97 01/08/20 10:30 01/07/20 01/08/20 01/08/20 22:59 06:59 14:59 Intake Total 660 / 2060 500 / 2560 480 / 480 Output Total 600 / 880 1400 / 2280 Balance 60 / 1180 -900 / 280 480 / 480 Physical Exam Const: COMMON NORMALS: no acute distress, patient oriented x3 and alert ORIENTATION/CONSCIOUSNESS: Yes awake OTHER: Pleasant. Conversant. HENMT: COMMON NORMALS: oropharynx normal Neck/C-Spine: COMMON NORMALS: no JVD Resp: COMMON NORMALS: normal respiratory effort and clear to auscultation bilaterally AUSCULTATION: clear to auscultation bilaterally Cardio: COMMON NORMALS: no JVD, regular rhythm, S1 normal heart sound present, S2 normal heart sound present and No murmurs present (Cardio) RHYTHM: regular rhythm HEART SOUNDS: S1 normal heart sound present and S2 normal heart sound present GI: COMMON NORMALS: Normal to inspection, nondistended, normoactive bowel sounds present, Soft to palpation and non-tender PALPATION: Yes Soft to palpation Extremity: COMMON NORMALS: no joint enlargement and no pedal edema Neuro: COMMON NORMALS: patient oriented x3 and moves all extremities SENSORIUM/ORIENTATION: Yes alert Skin: COMMON NORMALS: no rashes or lesions noted GENERAL SKIN EXAM: no rashes or lesions noted OTHER: Few small bruises noted. Data : 01/08/20 03:21 01/05/20 03:55 A&P Assessment and plan (1) COVID-19: Symptomatically he feels he is doing pretty well. He feels that he has been regaining his appetite, sense of smell and taste. Oxygenation has been stable. He remains afebrile. Discussed with him neutropenia which has worsened since 01/03. 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 At this time continue to monitor. He continues on empiric antibiotic coverage with Primaxin, vancomycin and azithromycin. Will DC vancomycin as all cultures negative so far, and in case contributing to neutropenia. Continues on Decadron. -Noted to have COVID-19 pneumonia in setting of underlying immunocompromise secondary to CLL, on current treatment -s/p 5 days of remdesivir (01/05) -hypertensive, continue to monitor vital signs -Continue supplemental oxygen as needed, not oxygen dependent at baseline, home oxygen evaluation prior to discharge if appropriate -CT chest with noted groundglass opacities bilaterally, pleural effusions -continue to trend inflammatory markers; down-trending -blood cx: prelim negative -repeat CXR shows increased infiltrates bilaterally Status: Acute (2) Abnormal transaminases: Improving. -Likely medication induced versus related to COVID-19 infection -Negative hepatitis, HIV -Imaging noted including gallbladder ultrasound, abdominal CT which showed presence of gallstones, mild hepatic steatosis. Abdomen is soft. No abdominal pain whatsoever. Appetite improving. Status: Acute (3) CLL (chronic lymphocytic leukemia): -Follows up with oncology Dr. Plaza. Left message with clinic, they will relay to give me a call back. 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 Chowdary Status: Chronic Qualifiers: Lower urinary tract symptom presence: symptoms absent Qualified Code(s): N40.0 - Benign prostatic hyperplasia without lower urinary tract symptoms (8) Paroxysmal atrial fibrillation: -noted to have a short run of atrial fibrillation on Holter monitor -has been following up with Dr. Murillo -Echo (08/2019): EF=60%, G1DD, trace [place], trace [place] -no AC due to previously noted thrombocytopenia, chemotherapy; on Eliquis here. Platelets little bit lower 139. Monitor. -telemetry monitoring -on BB Status: Acute (9) Dyslipidemia: -statin on hold Status: Chronic Additional A&P Information -regular diet as tolerated -PICC line placed due to poor peripheral IV access -GI ppx with famotidine -DVT ppx not needed as on Eliquis -Physical deconditioning; PT evaluation appreciated, doing well. -Dispo: home, lives alone but his daughter can move in with him and help him as needed on discharge; would benefit from home health -Code status: DNR/DNI -updated daughter Almita Choudhary Attestations Medical Necessity Statement*: Continue admission for assessment of management of COVID-19 pneumonia, hypoxia, in the setting of neutropenia, CLL. Coding Level of Care Code Acute Newspaper Peddler for Chg Fwd Exam Comprehensive Diagnoses COVID-19 U07.1 Abnormal transaminases R74.8 CLL (chronic lymphocytic leukemia) C91.10 Essential (primary) hypertension I10 Type 2 diabetes mellitus without complications E11.9 Diabetes mellitus [facility] insulin use: without intermediate school teacher use NIKIA on CPAP G47.33; Z99.89 BPH (benign prostatic hyperplasia) N40.0 Lower urinary tract symptom presence: symptoms absent Paroxysmal atrial fibrillation I48.0 Dyslipidemia E78.5
[2020-01-08] MEDS: azithromycin 500 MG in sodium chloride 0.9% 250 ML 250 MG IV (14:52)
[2020-01-08 16:27] LABS: Glucose Point of Care 254 mg/dL (70-110)
[2020-01-08 21:25] LABS: Glucose Point of Care 130 mg/dL (70-110)
[2020-01-09] VITALS (27 sets, daily range): BP systolic 112–137; BP diastolic 60–78; PULSE 52–74; RESP 14–27; TEMP 36.6–36.9; O2SAT 88–97
[2020-01-09 05:16] LABS: Eosinophils # 0.1 10^3/uL (0.0-0.8); Eosinophils % 0.2 %; Hematocrit 30.5 % (42.0-52.0); Hemoglobin 9.2 g/dL (11.7-16.6); Lymphocytes # 27.9 10^3/uL (0.8-4.8); Lymphocytes % 92.8 %; Mean Corpuscular HGB Conc 30.2 g/dL (30.0-36.0); Mean Corpuscular Hemoglobin 28.1 pg (28.0-34.0); Mean Corpuscular Volume 93.3 fL (80-94); Mean Platelet Volume 10.7 fL (7.4-10.4); Monocytes # 0.6 10^3/uL (0.2-0.9); Neutrophils # 1.47 10^3/uL (1.8-7.7); Neutrophils % 4.9 %; Nucleated Red Blood Cells % 0 %; Platelet Count 135 10^3/cmm (130-400); Red Blood Count 3.27 10^6/uL (4.1-5.3); Red Cell Distribution Width 14.9 % (12.1-15.1)
[2020-01-09 05:34] LABS: D Dimer 2.84 ug/mIFEU (0-0.59)
[2020-01-09 05:51] LABS: Blood Urea Nitrogen 17 mg/dL (8-23); C Reactive Protein 10.2 mg/L (0.0-4.9); Carbon Dioxide 27 mmol/L (22-29); Chloride 103 mmol/L (98-107); Glomerular Filtration Rate 133.6 mL/min (90-130); Glucose 96 mg/dL (65-115); Osmolality Calculated 287 mOsm/kg (285-295); Sodium 138 mmol/L (136-145)
[2020-01-09 05:54] LABS: Anion Gap 11.7 (5-19); Potassium 3.7 mmol/L (3.5-5.1)
[2020-01-09 06:23] LABS: Slide Review Slide Review Perform
[2020-01-09 07:29] LABS: Glucose Point of Care 81 mg/dL (70-110)
[2020-01-09] MEDS: dexamethasone 4 mg/mL INJ 6 MG IVP (08:50)
[2020-01-09] MEDS: finasteride 5 mg Tablet PO (08:51)
[2020-01-09] MEDS: metoprolol tartrate 25 mg Tablet 12.5 MG PO ×2 (08:51→17:30)
[2020-01-09] MEDS: lisinopril 20 mg Tablet PO (08:51)
[2020-01-09] MEDS: apixaban 5 mg Tablet PO ×2 (08:51→17:30)
[2020-01-09] MEDS: albuterol 8 gm MDI 2 PUFF INHALATION (09:52)
[2020-01-09 11:58] LABS: Glucose Point of Care 155 mg/dL (70-110)
--- NOTE | 2020-01-09 12:15 | PC.SOCIAL ---
IMM Updated Page 2 of IMM updated with patient's daughter Almita, by phone. She verbalizes understanding. Initialed, dated, and timed.
[2020-01-09] MEDS: azithromycin 500 MG in sodium chloride 0.9% 250 ML 250 MG IV (14:20)
[2020-01-09 16:25] LABS: Glucose Point of Care 141 mg/dL (70-110)
--- NOTE | 2020-01-09 16:56 | P.PN_ITS ---
Subjective Subjective: Interval history: He says he is feeling very well. No chest pain, SOB. No headache. No N/V. Appetitite is good. He is eager to hear his ANC is better and can't wait for it to be well enough to return home. Vitals/I&O/Wt Last Vital Signs Temp 98.3 F 01/09/20 12:00 Pulse 74 01/09/20 15:00 Resp 20 H 01/09/20 15:00 BP 120/60 01/09/20 14:00 Pulse Ox 91 01/09/20 15:00 01/09/20 01/09/20 01/09/20 06:59 14:59 22:59 Intake Total 300 / 2050 1080 / 1080 Output Total 450 / 1200 600 / 600 Balance -150 / 850 480 / 480 Physical Exam Const: COMMON NORMALS: no acute distress, patient oriented x3 and alert ORIENTATION/CONSCIOUSNESS: Yes awake OTHER: Pleasant. Conversant. HENMT: COMMON NORMALS: oropharynx normal Neck/C-Spine: COMMON NORMALS: no JVD Resp: COMMON NORMALS: normal respiratory effort and clear to auscultation bilaterally AUSCULTATION: clear to auscultation bilaterally Cardio: COMMON NORMALS: no JVD, regular rhythm, S1 normal heart sound present, S2 normal heart sound present and No murmurs present (Cardio) RHYTHM: regular rhythm HEART SOUNDS: S1 normal heart sound present and S2 normal heart sound present GI: COMMON NORMALS: Normal to inspection, nondistended, normoactive bowel sounds present, Soft to palpation and non-tender PALPATION: Yes Soft to palpation Extremity: COMMON NORMALS: no joint enlargement and no pedal edema Neuro: COMMON NORMALS: patient oriented x3 and moves all extremities SENSORIUM/ORIENTATION: Yes alert Skin: COMMON NORMALS: no rashes or lesions noted GENERAL SKIN EXAM: no rashes or lesions noted OTHER: Few small bruises noted. Data : 01/09/20 04:45 01/09/20 04:45 A&P Assessment and plan (1) COVID-19: He states that he is doing very well. He is actually been weaning down on oxygen to room air. He is happy to hear that his ANC is improving. Will de-escalate antibiotics to Levaquin. Neutropenia is improving with Neupogen. As discussed with his oncologist, continue Neupogen, recheck counts daily. Ideally ANC should be at least 5-6000 as discussed with patient as may expect counts to decrease after discontinuation. Continues on Decadron. -Noted to have COVID-19 pneumonia in setting of underlying immunocompromise secondary to CLL, on current treatment -s/p 5 days of remdesivir (01/05) -hypertensive, continue to monitor vital signs -Wean off oxygen as tolerating. Home O2 evaluation prior to going home. -CT chest with noted groundglass opacities bilaterally, pleural effusions -continue to trend inflammatory markers; down-trending -blood cx: prelim negative -repeat CXR shows increased infiltrates bilaterally Status: Acute (2) Abnormal transaminases: Continues to improve. -Likely medication induced versus related to COVID-19 infection -Negative hepatitis, HIV -Imaging noted including gallbladder ultrasound, abdominal CT which showed presence of gallstones, mild hepatic steatosis. Abdomen is soft. No abdominal pain whatsoever. Appetite improving. Status: Acute (3) CLL (chronic lymphocytic leukemia): -Follows up with oncology Dr. Plaza. Left message with clinic, they will relay to give me a call back. 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 Chowdary Status: Chronic Qualifiers: Lower urinary tract symptom presence: symptoms absent Qualified Code(s): N40.0 - Benign prostatic hyperplasia without lower urinary tract symptoms (8) Paroxysmal atrial fibrillation: -noted to have a short run of atrial fibrillation on Holter monitor -has been following up with Dr. Murillo -Echo (08/2019): EF=60%, G1DD, trace [place], trace [place] -no AC due to previously noted thrombocytopenia, chemotherapy; on Eliquis here. Platelets little bit lower 139. Monitor. -telemetry monitoring -on BB Status: Acute (9) Dyslipidemia: -statin on hold Status: Chronic Additional A&P Information -regular diet as tolerated -PICC line due to poor peripheral IV access -GI ppx with famotidine -DVT ppx not needed as on Eliquis -Physical deconditioning; PT evaluation appreciated, doing well. -Dispo: home, lives alone but his daughter can move in with him and help him as needed on discharge; would benefit from home health -Code status: DNR/DNI -updated daughter Almita Choudhary Attestations Medical Necessity Statement*: Continue admission for assessment management of COVID-19 pneumonia in the setting of neutropenia, continue Neupogen, daily reassessments. Disposition planning. 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
--- NOTE | 2020-01-09 18:19 | PC.NURSE ---
Patient has continually refused BP checks throughout the day. He has let me take a couple manually today. All have been within normal range. MD aware. Will continue to monitor.
[2020-01-09] MEDS: levofloxacin-dextrose 5 % 750 MG/150 ML PREMIX 100 MG IV (18:27)
[2020-01-09 20:59] LABS: Glucose Point of Care 122 mg/dL (70-110)
--- NOTE | 2020-01-09 22:50 | PC.NURSE ---
Report to HERNANDO Chapa in SBAR format
[2020-01-10] VITALS (17 sets, daily range): BP systolic 110–148; BP diastolic 65–78; PULSE 52–78; RESP 13–24; TEMP 36.8–37.1; O2SAT 85–96
[2020-01-10 06:25] LABS: Basophils # 0.2 10^3/uL (0.0-0.1); Basophils % 0.6 %; Eosinophils % 0.1 %; Hemoglobin 9.1 g/dL (11.7-16.6); Lymphocytes # 24.1 10^3/uL (0.8-4.8); Lymphocytes % 90.6 %; Mean Corpuscular HGB Conc 29.4 g/dL (30.0-36.0); Mean Corpuscular Hemoglobin 28.1 pg (28.0-34.0); Mean Corpuscular Volume 95.7 fL (80-94); Mean Platelet Volume 11.9 fL (7.4-10.4); Monocytes # 0.5 10^3/uL (0.2-0.9); Monocytes % 1.7 %; Neutrophils # 1.71 10^3/uL (1.8-7.7); Neutrophils % 6.5 %; Nucleated Red Blood Cells % 0 %; Platelet Count 113 10^3/cmm (130-400); Red Blood Count 3.24 10^6/uL (4.1-5.3); Red Cell Distribution Width 15.3 % (12.1-15.1); White Blood Count 26.5 10^3/uL (4.0-10.0)
[2020-01-10 06:36] LABS: Blood Urea Nitrogen 20 mg/dL (8-23); Carbon Dioxide 30 mmol/L (22-29); Chloride 100 mmol/L (98-107); Glomerular Filtration Rate 111.8 mL/min (90-130); Glucose 81 mg/dL (65-115); Osmolality Calculated 288 mOsm/kg (285-295); Sodium 138 mmol/L (136-145)
[2020-01-10 06:37] LABS: Anion Gap 12.2 (5-19); Potassium 4.2 mmol/L (3.5-5.1)
[2020-01-10 06:42] LABS: Calcium 8.3 mg/dL (8.5-10.5)
[2020-01-10 07:07] LABS: D Dimer 1.91 ug/mIFEU (0-0.59)
[2020-01-10 07:30] LABS: Slide Review Slide Review Perform
[2020-01-10] MEDS: apixaban 5 mg Tablet PO (08:23)
[2020-01-10] MEDS: lisinopril 20 mg Tablet PO (08:23)
[2020-01-10] MEDS: dexamethasone 4 mg/mL INJ 6 MG IVP (08:23)
[2020-01-10] MEDS: famotidine 20 mg Tablet PO (08:23)
[2020-01-10] MEDS: metoprolol tartrate 25 mg Tablet 12.5 MG PO (08:24)
[2020-01-10] MEDS: finasteride 5 mg Tablet PO (09:20)
--- NOTE | 2020-01-10 11:51 | P.DS_ITS ---
Discharge Providers Date of Admission: 12/29/19 21:35 Date of Discharge: January 10, 2020 Attending Provider at Admission: Nuvia Álvarez MD Attending Provider at Discharge: Lucas Gallegos Primary Care Provider: GALINA Garcia Diagnoses at Discharge Discharge Diagnosis (1) COVID-19: Status: Acute (2) CLL (chronic lymphocytic leukemia): Status: Chronic (3) Abnormal transaminases: Status: Acute Permanent problem details: Improving (4) Essential (primary) hypertension: Status: Chronic (5) Type 2 diabetes mellitus without complications: Status: Chronic Qualifiers: Diabetes mellitus senior care insulin use: without senior care use Qualified Code(s): E11.9 - Type 2 diabetes mellitus without complications (6) NIKIA on CPAP: Status: Chronic (7) BPH (benign prostatic hyperplasia): Status: Chronic Qualifiers: Lower urinary tract symptom presence: symptoms absent Qualified Code(s): N40.0 - Benign prostatic hyperplasia without lower urinary tract symptoms (8) Paroxysmal atrial fibrillation: Status: Acute (9) Dyslipidemia: Status: Chronic Reason for Visit Reason for Visit: GENERALIZED WEAKNESS Hospital Course Discharge Summary: Very pleasant 69-year-old gentleman with history of CLL undergoing treatments with Dr. Plaza with bendamustine, Rituxan, last treatment in November, with chronic lymphocytosis, intermittent neutropenia, also with history of diabetes, paroxysmal A. fib, HLD and other chronic medical problems was admitted on 12/28 and treated for severe COVID-19 infection, pneumonia, requiring oxygen support in the hospital with ground glass opacities on XR and CT chest. Was treated with remdesivir, Decadron, empirically covered with antibiotic on presentation due to sepsis treated with Zosyn, subsequently Primaxin and vancomycin, with noted neutropenia in the hospital ANC down as low as 280. Also with noted chronic anemia, as well as mild thrombocytopenia, platelets down to 113,000. His symptoms had gradually improved. Fatigue had improved and he was working with physical therapy. Appetite improved and he has been tolerating oral intake. Oxygenation has been continue to improve. He qualifies for 2 L of oxygen by nasal cannula. This is ordered for him. Decreased cell counts including severe neutropenia were discussed with his dog breeder. Per recommendation he was treated with Neupogen with gradual improvement in cell counts. Today absolute neutrophil count is up to 1700. Neupogen was intended to be continued with monitoring of cell counts all the hospital, however, he is rather adamant about returning home today. He understands that his cell counts may decrease after discontinuation of Neupogen somewhat prematurely. He understands he may be at risk of bleeding in case of progressive decline in platelet levels. He is insisting on returning home today. He states that he will know to watch out for any danger signs, in case of any fever, any worsening of shortness of breath, any inability to tolerate food or drink, or any other concerning symptoms will be going to ER. States that he will have his daughter for support at home. We are requesting for home health for him as well. Discussed this and need to follow-up cell counts in several days with his primary care provider's office, with Leeann Noland covering for Estefany Beltran this week. They should be able to see him on Wednesday. Please note the platelet levels as well, as if thrombocytopenia continues to worsen may not be able to take Eliquis. He is going to be empirically continued on Levaquin and complete additional 7-day course and a short taper of Decadron. Discussed also regarding incidental finding of gallstones and mild thickening of gallbladder wall during his hospitalization. He has been entirely asymptomatic, not suggestive of any acute bladder infection, however, this will need to be followed up, and may still require nonurgent surgical titration. Additional assessment included CT abdomen and pelvis and GB ultrasound. He is instructed to again seek medical attention in case he develops any symptoms. He is instructed to follow-up with Dr. Plaza in office in 2 weeks. Please call in case of any questions. Physical Exam Const: COMMON NORMALS: no acute distress, patient oriented x3 and alert ORIENTATION/CONSCIOUSNESS: Yes awake OTHER: Awake, alert, lucid. In good spirits. HENMT: COMMON NORMALS: oropharynx normal Neck/C-Spine: COMMON NORMALS: no JVD Resp: COMMON NORMALS: normal respiratory effort and clear to auscultation bilaterally AUSCULTATION: clear to auscultation bilaterally Cardio: COMMON NORMALS: no JVD, regular rhythm, S1 normal heart sound present, S2 normal heart sound present and No murmurs present (Cardio) RHYTHM: regular rhythm HEART SOUNDS: S1 normal heart sound present and S2 normal heart sound present GI: COMMON NORMALS: Normal to inspection, nondistended, normoactive bowel soun ds present, Soft to palpation and non-tender PALPATION: Yes Soft to palpation Extremity: COMMON NORMALS: no joint enlargement and no pedal edema Neuro: COMMON NORMALS: patient oriented x3 and moves all extremities SENSORIUM/ORIENTATION: Yes alert Skin: COMMON NORMALS: no rashes or lesions noted GENERAL SKIN EXAM: no rashes or lesions noted OTHER: Few small bruises noted. Discharge Data Data Completed and Pending: Completed Studies During Hospitalization Category Date Time Status CT abdomen pelvis w con* [id number] Stat Cat Scan 12/29/19 17:[address] chest wo con 7 [id number] Routine Cat Scan 01/02/20 08:34 Completed XR chest 1V michael ble [id number] Routine Exams 01/01/20 06:00 Completed XR chest 1V michael ble [id number] Routine Exams 01/05/20 06:00 Completed XR chest 1V michael ble [id number] Routine Exams 01/06/20 13:15 Completed XR chest 1V michael ble [id number] Stat Exams 12/29/19 15:46 Completed US gall bladder 7 [id number] Urgent Ultrasound 12/29/19 21:23 Completed Pending at discharge Category Date Time Status Basic Metabolic P juan carlos AM LABS Lab 01/11/20 04:00 Ordered Complete Blood Co unt w/Auto AM LABS Lab 01/11/20 04:00 Ordered Labs from last 24 hours 01/10/20 01/10/20 01/10/20 03:24 03:24 03:24 WBC 26.5 H RBC 3.24 L Hgb 9.1 L Hct 31.0 L MCV 95.7 H MCH 28.1 MCHC 29.4 L RDW 15.3 H Plt Count 113 L MPV 11.9 H Neut % (Auto) 6.5 Lymph % (Auto) 90.6 [place] % (Auto) 1.7 Eos % (Auto) 0.1 Baso % (Auto) 0.6 Neut # (Auto) 1.71 L Lymph # (Auto) 24.1 H [place] # (Auto) 0.5 Eos # (Auto) 0.0 Baso # (Auto) 0.2 H Nucleated RBC % (a uto) 0 Nucleated RBCs # 0.0 D-Dimer 1.91 H Sodium 138 Potassium 4.2 Chloride 100 Carbon Dioxide 30 H Anion Gap 12.2 BUN 20 Creatinine 0.7 GFR Calculation 111.8 Glucose 81 POC Glucose Calculated Osmolal ity 288 Calcium 8.3 L 01/09/20 01/09/20 01/09/20 20:55 16:02 11:18 WBC RBC Hgb Hct MCV MCH MCHC RDW Plt Count MPV Neut % (Auto) Lymph % (Auto) [place] % (Auto) Eos % (Auto) Baso % (Auto) Neut # (Auto) Lymph # (Auto) [place] # (Auto) Eos # (Auto) Baso # (Auto) Nucleated RBC % (a uto) Nucleated RBCs # D-Dimer Sodium Potassium Chloride Carbon Dioxide Anion Gap BUN Creatinine GFR Calculation Glucose POC Glucose 122 141 155 Calculated Osmolal ity Calcium Vitals: Last Vital Signs Temp 98.7 F 01/10/20 08:00 Pulse 60 01/10/20 10:00 Resp 18 01/10/20 10:00 BP 127/65 01/10/20 08:00 Pulse Ox 90 01/10/20 11:13 Discharge Plan Discharge Patient Disposition: Home Health Service Condition: Stable Prescriptions: New metoprolol tartrate 25 mg Tablet 12.5 mg PO BID Qty: 30 RF: 0 dexamethasone 2 mg tablet See Rx Instructions .ROUTE .COMPLEX Qty: 3 RF: 0 famotidine 20 mg Tablet 20 mg PO BID Qty: 28 RF: 0 levofloxacin 750 mg tablet 750 mg PO DAILY 7 Days Qty: 7 RF: 0 Continued albuterol sulfate 2.5 mg /3 mL (0.083 %) solution for nebulization 2.5 mg INHALATION Q4H PRN (Reason: shortness of breath or wheezing) Qty: 300 RF: 0 finasteride 5 mg tablet 5 mg PO DAILY Qty: 90 RF: 0 furosemide [Lasix] 20 mg tablet 20 mg PO DAILY Qty: 90 RF: 0 Hold Instructions: Low Blood pressure lisinopril 20 mg tablet 20 mg PO DAILY Qty: 90 RF: 0 Hold Instructions: Low Blood Pressure lovastatin 40 mg tablet 40 mg PO DAILY Qty: 90 RF: 0 Eliquis 5 mg tablet 5 mg PO BID Qty: 60 RF: 3 Mucinex 1,200 mg tablet extended release 12hr 1,200 mg PO Q12H Qty: 60 RF: 0 Discontinued doxycycline hyclate [Vibramycin] 100 mg capsule 100 mg PO BID Qty: 20 RF: 0 Discharge Orders: Discharge Order (Routine); Ordered 01/10/20 Ordered By: Lucas Gallegos Other Ambulatory Orders: DME: Oxygen (Order) Location: None Selected Ordered By: Lucas Gallegos Referrals: [facility] [place]Outside] [facility] [place] [facility] ([facility]) [Outside] Estefany Beltran, ELECTROMECHANICAL ENGINEER-C [Primary Care Provider] - 4-7 days (Leeann Noland covering for Estefany Beltran this week. Please set up a telehealth visit in 48 hours if possible. Please follow up blood counts, neutrophils. Contact Dr Plaza with any questions. ) Al Plaza MD [[place]] - 2 weeks Discharge Diet: Diabetic Discharge Activity: Increase activity as tolerated, As per PT/OT instructions and Oxygen as instructed Activity Restrictions/Additional Instructions: Continue oxygen as instructed by respiratory therapy. Continue CPAP for sleep apnea. Please be mindful that your blood counts have still been low, including platelets and neutrophils. Neutrophils are better at 1700, but you have been receiving Neupogen which has been stimulating her bone marrow. Please be aware that you have decided to leave somewhat early, and so there is a risk that your blood counts may still decrease. Please follow-up closely with your primary care doctor and have them recheck your blood counts within several days to make sure they are continuing to increase. If you experience any concerning symptoms including high fever, worsening shortness of breath, any chest pain or pressure, any fainting, inability to take food or drink by mouth, severe headache, or other problems please call an ambulance without delay. If you experience any abnormal bleeding please discontinue Eliquis and seek medical attention. Follow-up with Dr. Plaza in office in several weeks. Continue to increase activity and physical therapy as instructed by PT. Please discuss with your primary care doctor regarding gallstones and a little bit of thickening of the gallbladder wall. This may need additional evaluation by a surgeon on nonurgent basis unless you start having symptoms. Please follow-up with Dr. Chowdary regarding prostate enlargement. Discharge Attestations Time Spent in Discharge Care*: greater than 30 min Quality Metrics Clinical Quality Measures During this hospital stay, did patient experience: None Coding Level of Care Code Acute Chief I Dispatcher for Chg Fwd Diagnoses COVID-19 U07.1 CLL (chronic lymphocytic leukemia) C91.10 Abnormal transaminases R74.8 Essential (primary) hypertension I10 Type 2 diabetes mellitus without complications E11.9 Diabetes mellitus bed bug exterminator insulin use: without bed bug exterminator use NIKIA on CPAP G47.33; Z99.89 BPH (benign prostatic hyperplasia) N40.0 Lower urinary tract symptom presence: symptoms absent Paroxysmal atrial fibrillation I48.0 Dyslipidemia E78.5
--- NOTE | 2020-01-10 13:40 | PC.NURSE ---
Attempted to call patient's PCP three times with no answer. Shaquillebaljeetbernie Pimentel Devin [address] [place] [id number] Educated patient on need for follow appointment within 4-7 days per MD/paperwork. Patient is aware and has information on who to contact.
--- NOTE | 2020-01-10 14:08 | PC.NURSE ---
Appointment made with Dr Plaza on 01/22 at 0830 for patient. Patient is aware and placed information in patient's paperwork.
--- NOTE | 2020-01-11 12:40 | PC.SOCIAL ---
Was unable to speak with patient Called Daughter and she was there this am and made breakfast and something for dinner. He is short of breath if ambulating far but is wearing O2. He is doing okay per her report. She set up his new medications and we reviewed these. We also discussed that Doxycycline was dc'd and daughter will follow up on this to be sure. We discussed HH and what they will be doing. We discussed importance of yearly flu vaccine and to get PNA every 5 years. Per Daughter he does get these. We discussed importance of wearing mask in public, 6 ft social distancing, wash hands for 20 sec and sanitizing highly utlized surfaces. Daughter verbalized understanding. She indicates he has been very hungry and eating everything in sight which is a good sign since did not have an appetite at all prior to coming to hospital. We discussed plasma donation but he will likely not be a good candidate for this. He will see Romeo WEBER tomorrow at 10:40am at [place]. She indicates had good care but glad to be home. She asked about IHS and we discussed since he does not have TAMARA it would be private pay. She thought he could benefit from someone cooking meals and cleaning. She verbalized understanding and indicates could not afford private pay at this time. No further questions or concerns voiced.
== END 2020-01-10 15:20 | disposition home health service (06) | DRG 871 ==
LOC: ER 15:38 → ICU 12-30 00:02 → MEDSURG 12-30 09:28
PROVIDERS: Family Medicine; Internal Medicine; Admitting Provider Internal Medicine; PCP Nurse Practitioner; Visit Provider Internal Medicine
DX: A41.9 Sepsis, unspecified organism (principal); U07.1 COVID-19; J12.89 Other viral pneumonia; J96.01 Acute respiratory failure with hypoxia; C91.10 Chronic lymphocytic leukemia of B-cell type not having achieved remission; D84.821 Immunodeficiency due to drugs; Z79.899 Other long term (current) drug therapy; R16.2 Hepatomegaly with splenomegaly, not elsewhere classified; N40.0 Benign prostatic hyperplasia without lower urinary tract symptoms; E78.5 Hyperlipidemia, unspecified; I10 Essential (primary) hypertension; G47.33 Obstructive sleep apnea (adult) (pediatric); I48.0 Paroxysmal atrial fibrillation; E11.9 Type 2 diabetes mellitus without complications; K80.20 Calculus of gallbladder without cholecystitis without obstruction; T45.1X5A Adverse effect of antineoplastic and immunosuppressive drugs, initial encounter; Z66 Do not resuscitate; Z79.01 Long term (current) use of anticoagulants; Z79.51 Long term (current) use of inhaled steroids; K76.0 Fatty (change of) liver, not elsewhere classified; D70.9 Neutropenia, unspecified
CPT/HCPCS: 12345; 36415; 36416; 36569; 36592; 71045; 71046; 71250; 74177; 76705; 80048; 80053; 80076; 80202; 80307; 81003; 82550; 82728; 82962; 83605; 83615; 83880; 84145; 84443; 85025; 85378; 85384; 86140; 86803; 87040; 87070; 87086; 87340; 87426; 87804; 87806; 93005; 94640; 94660; 96372; 96375; 97110; 97116; 97161; 97530; 99284; A4570; J0456; J0743; J1100; J1442; J1650; J1815; J1885; J1940; J1956; J2060; J2543; J3370; J3490; J3535; J7050; Q9967

== ENCOUNTER 2020-01-13 16:27 | Outpatient (CLI) | payer MEDICARE, OTHER, SELFPAY ==
[2020-01-13 16:37] LABS: Hematocrit 30.1 % (42.0-52.0); Hemoglobin 8.8 g/dL (11.7-16.6); Lymphocytes # 36.5 10^3/uL (0.8-4.8); Lymphocytes % 95.6 %; Mean Corpuscular HGB Conc 29.2 g/dL (30.0-36.0); Mean Corpuscular Hemoglobin 27.5 pg (28.0-34.0); Mean Corpuscular Volume 94.1 fL (80-94); Mean Platelet Volume 10.8 fL (7.4-10.4); Monocytes # 0.2 10^3/uL (0.2-0.9); Monocytes % 0.5 %; Neutrophils # 1.39 10^3/uL (1.8-7.7); Neutrophils % 3.7 %; Nucleated Red Blood Cells % 0 %; Platelet Count 126 10^3/cmm (130-400); Red Cell Distribution Width 16.1 % (12.1-15.1)
[2020-01-13 16:55] LABS: White Blood Count 38.1 10^3/uL (4.0-10.0)
[2020-01-13 16:56] LABS: Slide Review Slide Review Perform
== END 2020-01-13 16:28 | disposition home or self-care (01) ==
LOC: LAB 16:29
PROVIDERS: Nurse Practitioner Family; PCP Nurse Practitioner; Visit Provider Nurse Practitioner
DX: D70.9 Neutropenia, unspecified (principal)
CPT/HCPCS: 85025

== ENCOUNTER 2020-01-16 16:32 | Inpatient (IN) | payer MEDICARE, OTHER, SELFPAY ==
[2020-01-16 16:37] VITALS: BP 108/73; PULSE 104; RESP 22; TEMP 39.2; O2SAT 98; BMI 27.5
--- NOTE | 2020-01-16 18:11 | XR_ITS ---
WS: [id number] Portable AP upright chest, Clinical Data: fever Comparison: Portable chest, 01/06/2020. Findings: The patchy peripheral opacities have diminished slightly. The heart remains enlarged. The a ortic arch and descending aorta are tortuous. No nodules, masses or effusions are seen. There is no p neumothorax. XR/XR chest 1V portable [id number] Impression: 1. Slight improvement of bilateral patchy opacities. 2. Cardiomegaly and atherosclerosis.
--- NOTE | 2020-01-16 18:18 | W.ED.FEVER ---
HPI - Fever General: Chief Complaint: Fever Stated Complaint: sob Time Seen by Provider: 01/16/20 17:06 Source: patient Mode of arrival: EMS Limitations: no limitations History of Present Illness: HPI Narrative: 69-year-old gentleman with a history of CLL who was recently discharged from the hospital for Covid infection. He was initially diagnosed with Covid about 6 weeks ago. He was subsequently admitted and managed for Covid pneumonia. Patient has been doing well until today when he developed a fever, he has also been feeling weak. He denies cough or difficulty breathing. He is here for evaluation. MD elicited complaint: fever and weakness Context: on chemotherapy Exacerbating factors: nothing Relieving factors: nothing Associated symptoms: Reports chills and nausea; Deny abdominal pain, flank pain, chest pain, confusion, cough, diarrhea, dysuria, extremity pain, headache(s), myalgias, nasal congestion, night sweats, rash, rhinorrhea, short of breath, sinus pain, stiffness, sore throat, vomiting or weight loss Treatments prior to arrival fever: none Review of Systems General: Reports: 10 or more systems reviewed and unremarkable except in HPI and below Const: Reports: chills; Denies: night sweats Eyes: Denies: change in vision or blurry vision ENMT: Denies: nasal congestion or sinus pain Card: Denies: chest pain Resp: Denies: dyspnea, productive cough or non-productive cough GI: Reports: nausea; Denies: abdominal pain, vomiting or diarrhea : Denies: flank pain or dysuria Musc: Denies: extremity pain Skin/Breast: Denies: rash, pruritus or erythema Neuro: Denies: headache(s) or confusion Endo: Denies: polyuria, polydipsia or tired all the time PFSH ED PFSH: Medical History (Updated 01/17/20 @ 01:49 by Azucena Howard MD, [facility] [place]) BPH (benign prostatic hyperplasia) CLL (chronic lymphocytic leukemia) COPD (chronic obstructive pulmonary disease) COVID-19 Dyslipidemia Erectile dysfunction Essential (primary) hypertension High risk medication use NIKIA on CPAP Paroxysmal atrial fibrillation Type 2 diabetes mellitus without complications Urinary hesitancy Surgical History No history of previous surgery Family History Other Cancer Diabetes Social History Smoking and tobacco status: never smoked Second hand smoke exposure: No Smoking risk assessment/counseling performed?: No Alcohol intake: never Desire information about alcohol rehabilitation?: No Counseling given: No Desire information about substance/drug rehabilitation?: No Counseling given: No Adopted: No Caregiver/support person: No Lives independently: Yes Household members: none Housing: House Marital status: / Current occupational status: retired History of recent travel: No Current gender identity: Male Physical Exam Const: COMMON NORMALS: no acute distress, average body habitus, patient oriented x3, no limitations, healthy appearing, alert and well nourished HENMT: COMMON NORMALS: normocephalic, atraumatic and moist oral mucous membranes HEAD & SCALP: normocephalic and atraumatic Neck/C-Spine: COMMON NORMALS: no meningeal signs and no JVD Resp: COMMON NORMALS: normal respiratory effort, No retractions, No use of accessory muscles, clear to auscultation bilaterally and percussion normal AUSCULTATION: clear to auscultation bilaterally PERCUSSION: percussion normal Cardio: COMMON NORMALS: no JVD, regular rhythm, S1 normal heart sound present, S2 normal heart sound present, No gallops present (Cardio), No clicks present (Cardio), No murmurs present (Cardio), No rub (Cardio) and Peripheral pulses 2+ throughout RATE: tachycardic RHYTHM: regular rhythm HEART SOUNDS: S1 normal heart sound present and S2 normal heart sound present PERIPHERAL PULSES: Peripheral pulses 2+ throughout GI: COMMON NORMALS: Normal to inspection, nondistended, normoactive bowel sounds present, Soft to palpation, non-tender, No hepatosplenomegaly present, no masses and no bruits PALPATION: Yes Soft to palpation and Yes No hepatosplenomegaly present Extremity: COMMON NORMALS: normal to inspection, full ROM, capillary refill normal, no calf tenderness and no pedal edema Neuro: COMMON NORMALS: patient oriented x3 SENSORIUM/ORIENTATION: Yes alert MENINGEAL SIGNS: Yes no meningeal signs Skin: COMMON NORMALS: no rashes or lesions noted, no wounds, turgor normal, no jaundice, no petechiae and no mottling GENERAL SKIN EXAM: no rashes or lesions noted and turgor normal Course ED course: 69-year-old gentleman with CLL who presents to the emergency department with fever of unknown origin. He is started on broad-spectrum antibiotics, admitted to the hospital for further evaluation and work-up. Consultations: Consultation #1: Dr. Plaza, oncologist. Patient will need to be admitted and commenced on broad spectrum antibiotics. He should also be tested for quantitative immunoglobin levels Consultation #2: Dr. Álvarez, hospitalist and he kindly accepted the patient to his service. Vital Signs: Vital signs: Vital Signs Temperature 101.8 F H 01/17/20 01:02 Pulse Rate 88 01/17/20 01:02 Respiratory Rate 18 01/17/20 01:02 Blood Pressure 112/87 01/17/20 01:02 Pulse Oximetry 92 01/17/20 01:02 MDM - Fever MDM Narrative: Medical decision making narrative: 69-year-old male with CLL and who presents with fever today. Evaluation does not show a source for the fever but he is tachycardic, febrile, and so is at high risk for sepsis. He is admitted for further evaluation and management Lab Data: Labs: Lab Results 01/16/20 01/16/20 01/16/20 Range/Units 18:40 18:40 18:45 WBC 49.7 H* (4.0-10.0) 10^3/ uL RBC 3.07 L (4.1-5.3) 10^6/u L Hgb 8.2 L (11.7-16.6) g/dL Hct 28.3 L (42.0-52.0) % MCV 92.2 (80-94) fL MCH 26.7 L (28.0-34.0) pg MCHC 29.0 L (30.0-36.0) g/dL RDW 16.5 H (12.1-15.1) % Plt Count 137 (130-400) 10^3/c mm MPV 10.8 H (7.4-10.4) fL Neut % (Auto) 7.3 % Lymph % (Auto) 92.3 % [place] % (Auto) 0.2 % Eos % (Auto) 0.0 % Baso % (Auto) 0.0 % Neut # (Auto) 3.60 (1.8-7.7) 10^3/u L Lymph # (Auto) 45.9 H (0.8-4.8) 10^3/u L [place] # (Auto) 0.1 L (0.2-0.9) 10^3/u L Eos # (Auto) 0.0 (0.0-0.8) 10^3/u L Baso # (Auto) 0.0 (0.0-0.1) 10^3/u L Nucleated RBC % (a uto) 0 % Nucleated RBCs # 0.0 /100WBC Sodium 130 L (136-145) mmol/L Potassium 3.9 (3.5-5.1) mmol/L Chloride 93 L (98-107) mmol/L Carbon Dioxide 25 (22-29) mmol/L Anion Gap 15.9 (5-19) BUN 16 (8-23) mg/dL Creatinine 1.0 (0.7-1.2) mg/dL GFR Calculation 74.1 L (90-130) mL/min Glucose 102 (65-115) mg/dL Calculated Osmolal ity 271 L (285-295) mOsm/k g Calcium 8.0 L (8.5-10.5) mg/dL Total Bilirubin 1.3 H (0.15-1.2) mg/dL AST 191 H (0-40) U/L ALT 133 H (0-41) U/L Alkaline Phosphata se 154 H (40-130) IU/L C-Reactive Protein 244.4 H (0.0-4.9) mg/L Total Protein 6.6 (6.6-8.7) g/dL Albumin 2.4 L (3.5-5.2) g/dL Globulin 4.2 (1.3-4.6) g/dL Influenza Type A A g Negative (Negative) Influenza Type B A g Negative (Negative) Imaging Data^: CXR: Attestation: I personally reviewed and interpreted this imaging study as follows: My impression: Bilateral infiltrates Discharge Plan Discharge Patient Disposition: Admitted As Inpatient Admit Provider: Nuvia Álvarez Clinical Impression: Sepsis, History of 2019 novel coronavirus disease (COVID-19), Gall bladder stones, Hypoxia Condition: Stable Coding Level of Care Code ED Farm Equipment Engineer for g Fwd Exam Comprehensive
[2020-01-16 18:55] LABS: Hematocrit 28.3 % (42.0-52.0); Hemoglobin 8.2 g/dL (11.7-16.6); Lymphocytes # 45.9 10^3/uL (0.8-4.8); Lymphocytes % 92.3 %; Mean Corpuscular Hemoglobin 26.7 pg (28.0-34.0); Mean Corpuscular Volume 92.2 fL (80-94); Mean Platelet Volume 10.8 fL (7.4-10.4); Monocytes # 0.1 10^3/uL (0.2-0.9); Monocytes % 0.2 %; Neutrophils % 7.3 %; Nucleated Red Blood Cells % 0 %; Platelet Count 137 10^3/cmm (130-400); Red Blood Count 3.07 10^6/uL (4.1-5.3); Red Cell Distribution Width 16.5 % (12.1-15.1)
[2020-01-16 19:13] LABS: Alanine Aminotransferase 133 U/L (0-41); Albumin Level 2.4 g/dL (3.5-5.2); Alkaline Phosphatase 154 IU/L (40-130); Anion Gap 15.9 (5-19); Aspartate Amino Transferase 191 U/L (0-40); Blood Urea Nitrogen 16 mg/dL (8-23); C Reactive Protein 244.4 mg/L (0.0-4.9); Carbon Dioxide 25 mmol/L (22-29); Chloride 93 mmol/L (98-107); Globulin 4.2 g/dL (1.3-4.6); Glomerular Filtration Rate 74.1 mL/min (90-130); Glucose 102 mg/dL (65-115); Osmolality Calculated 271 mOsm/kg (285-295); Potassium 3.9 mmol/L (3.5-5.1); Sodium 130 mmol/L (136-145); Total Bilirubin 1.3 mg/dL (0.15-1.2); Total Protein 6.6 g/dL (6.6-8.7)
[2020-01-16 19:54] LABS: Influenza A by IFA Negative (Negative); Influenza B by IFA Negative (Negative)
[2020-01-16 20:02] LABS: White Blood Count 49.7 10^3/uL (4.0-10.0)
[2020-01-16 20:05] LABS: Slide Review Slide Review Perform
--- NOTE | 2020-01-16 20:25 | US_ITS ---
WS: [id number] ULTRASOUND ABDOMEN LIMITED CLINICAL INFORMATION: RUQ pain, fever COMPARISON: December 29, 2019 FINDINGS: Liver Size: Normal. Craniocaudal length: 14.4 cm. Echogenicity: Mild diffuse fatty infiltration. Surface nodularity: None. Mass (size and location): None. Bile ducts Intrahepatic ducts: Normal. Common bile duct diameter: 0.4 cm. Gallbladder Cholelithiasis Gallstones: Present Gallbladder sludge: None. Gallbladder wall thickening: None. Pericholecystic fluid: None. Sonographic Alicia sign: Absent. Pancreas Normal as visualized. Right kidney: Normal. Hydronephrosis: None. Size: 11.4 cm x 4.8 cm x 5.9 cm. Abdominal aorta and IVC Visualized portions are normal. Ascites: None. US/US gall bladder [id number] IMPRESSION: 1. Mild diffuse fatty infiltration the liver. 2. Cholelithiasis. No gallbladder wall thickening or pericholecystic fluid. Ca lculus near the gallbladder neck. 3. Normal common bile duct. 4. No hydronephrosis in right kidney.
[2020-01-16 20:38] VITALS: BP 126/76; PULSE 98; RESP 18; O2SAT 97
[2020-01-16 21:00] VITALS: BP 114/68; PULSE 84; RESP 18; O2SAT 98
--- NOTE | 2020-01-16 22:17 | PM.HP ---
Providers/Chief Complaint Primary Care Provider: DHAVAL GarciaC Chief Complaint: sob History of Present Illness Lb Garcia is a 69 year old male who has history of leukemia, chronic lymphocytic leukemia/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/04/2016( bendamustine/Rituxan was held secondary to COVID-19 pneumonia which was diagnosed on 12/06/2019) was recently discharged from the hospital after management with broad-spectrum antibiotics for neutropenia, he required Neupogen, was discharged home on Levaquin with instructions to follow-up with Dr. Plaza for worsening thrombocytopenia with concurrent use of Eliquis coming in today for chief complaint of febrile episode. Patient is stating that he did well only for couple of days at home then afterwards he started experiencing worsening of his fatigue, lethargy, he lost his appetite, he is denying night sweats, productive cough, abdominal pain, right upper quadrant pain, shoulder pain, dysuria, endorsing febrile episodes T-max 101 at home, he is denying neck pain, headache, blurry vision. He is endorsing diarrhea, he has had 3-4 episodes of loose stools at home. He is status post Levaquin course. Dr. Plaza was notified about his admission who recommended broad-spectrum antibiotics because of febrile episode and requested immunoglobulin panel. He is septic because of fever, tachycardia, chest x-ray is not showing any new consolidation, abnormal transaminases, on clinical exam Alicia's sign is negative, not complain abdominal pain, gallbladder wall thickening less than 3 mm, CBD dilation less than 8 mm Broad-spectrum antibiotics initiated, in the ER he has received vancomycin and Zosyn I have requested CT panel and COVID-19 rapid antigen Review of Systems Const: Reports: fever(s), chills, body aches, change in appetite and fatigue Eyes: Denies: change in vision ENMT: Denies: throat pain Card: Denies: chest pain Resp: Denies: dyspnea GI: Reports: diarrhea; Denies: abdominal pain, nausea or vomiting : Denies: flank pain Musc: Reports: muscle cramps Skin/Breast: Reports: lesions Neuro: Denies: headache(s), difficulty walking, frequent falls, vertigo or confusion Psych: Denies: anxiety Endo: Denies: polyuria Pascual/Lymph: Denies: easy bruising All/Imm: Denies: urticaria Medications/Allergies Home Medications Medication Instructions Recorded Confirmed Last Taken Type finasteride 5 mg tablet 5 mg PO DAILY #90 tab 10/23/19 01/16/20 01/16/20 Rx furosemide 20 mg tablet 20 mg PO DAILY #90 tab 10/23/19 01/16/20 01/16/20 Rx lisinopril 20 mg tablet 20 mg PO DAILY #90 tab 10/23/19 01/16/20 01/16/20 Rx lovastatin 40 mg tablet 40 mg PO DAILY #90 tab 10/23/19 01/16/20 01/16/20 Rx apixaban 5 mg tablet 5 mg PO BID #60 tab 11/21/19 01/16/20 01/16/20 Rx guaifenesin 1,200 mg tablet, 1,200 mg PO Q12H #60 tab 12/15/19 01/16/20 01/16/20 Rx extended release 12 hr albuterol sulfate 2.5 mg INHALATION Q4H PRN #300 ml 12/27/19 01/16/20 01/16/20 Rx famotidine 20 mg PO BID #28 tab 01/10/20 01/16/20 01/16/20 Rx levofloxacin 750 mg PO DAILY 7 Days #7 tab 01/10/20 01/16/20 01/16/20 Rx metoprolol tartrate 12.5 mg PO BID #30 tab 01/10/20 01/16/20 01/16/20 Rx Allergies Allergy/AdvReac Type Severity Reaction Status Date / Time No Known Allergies Allergy Verified 01/16/20 16:42 PFSH Acute PFSH: Medical History (Updated 01/17/20 @ 00:03 by Nuvia Álvarez MD) BPH (benign prostatic hyperplasia) CLL (chronic lymphocytic leukemia) COPD (chronic obstructive pulmonary disease) COVID-19 Dyslipidemia Erectile dysfunction Essential (primary) hypertension High risk medication use NIKIA on CPAP Paroxysmal atrial fibrillation Type 2 diabetes mellitus without complications Urinary hesitancy Surgical History No history of previous surgery Family History Other Cancer Diabetes Social History Smoking and tobacco status: never smoked Second hand smoke exposure: No Smoking risk assessment/counseling performed?: No Alcohol intake: never Desire information about alcohol rehabilitation?: No Counseling given: No Desire information about substance/drug rehabilitation?: No Counseling given: No Adopted: No Caregiver/support person: No Lives independently: Yes Household members: none Housing: House Marital status: / Current occupational status: retired History of recent travel: No Current gender identity: Male Vitals/I&O/Wt Last Vital Signs Temp 102.6 F H 01/16/20 16:37 Pulse 98 01/16/20 20:38 Resp 18 01/16/20 20:38 BP 126/76 01/16/20 20:38 Pulse Ox 97 01/16/20 20:38 Weight last 48 hrs Weight 87.09 kg Physical Exam Narrative: EXAM NARRATIVE: Appears more than stated age Clinically looks dehydrated No active complaints Saturating well on 5 L nasal cannula No acute respiratory distress EOMI, PERRLA Appropriate mood and affect S1, S2 sinus tachycardia Abdomen soft nontender bowel sounds present, no right upper quadrant tenderness, Alicia sign is negative, soft abdomen, no signs of peritonitis No lower extremity edema gangrene ulcer Appropriate mood and affect Neurologically nonfocal exam No signs of meningitis No skin breakdown Data : 01/16/20 18:40 01/16/20 18:40 Micro: Microbiology 01/16/20 18:41 Blood Culture - Preliminary Blood SPECIMEN COLLECTED 01/16/20 18:40 Blood Culture - Preliminary Blood SPECIMEN COLLECTED A&P Assessment and plan (1) Sepsis: Status: Acute (2) Gall bladder stones: Status: Acute (3) Hypoxia: Status: Acute (4) Thickening of wall of gallbladder: Status: Acute Additional A&P Information Sepsis Source unknown, infectious versus noninfectious fever, sepsis criteria met with fever tachycardia, leukocytosis We will start him on vancomycin and Primaxin, Chemotherapeutic agent still on hold Dr. Plaza requested broad-spectrum antibiotics and immunoglobulin panel We will check C. difficile panel, he recently finished Levaquin course Clinically no right upper quadrant tenderness , negative Alicia sign, I do suspect chronic gallbladder wall thickening due to gallstone chronic inflammation, I will request HIDA scan in the morning, gallbladder wall thickening less than 3 mm, CBD dilation less than 8 mm, Would reorder Covid rapid antigen test Chronic hypoxic respiratory failure without acute exacerbation Currently requiring 4 to 5 L at baseline since his Covid pneumonia CLL: Follows up with Dr. Plaza, kindly see their notes for further details, chemotherapeutic agents on hold He was not able to follow-up with Dr. Plaza this month Patient received Neupogen for neutropenia on last admission Dr. Plaza has been updated Type 2 diabetes: We will resume his diet after HIDA scan No acute exacerbation Sliding scale Recent diarrhea after starting Levaquin, check C. difficile panel DNR/DNI goals of care discussed with the patient N.p.o. for HIDA scan in the morning DVT prophylaxis: Not indicated currently is on Eliquis, he takes Eliquis for paroxysmal A. fib Attestations Medical Necessity Statement*: Anticipating stay in the hospital cross more than 2 midnights continued IV broad-spectrum antibiotics for sepsis, needs to rule out C. difficile Time Spent in Patient Care: (>than 50% of time spent in counselling and/or direct pt care on unit). 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
[2020-01-16] MEDS: piperacillin-tazobactam 3.375 GM in sodium chloride 0.9% (plus) 50 ML IV (22:57)
[2020-01-16 23:00] VITALS: BP 110/64; PULSE 84; RESP 18; TEMP 38.8; O2SAT 97
--- NOTE | 2020-01-16 23:24 | PC.NURSE ---
call placed to Anastacio to update
[2020-01-17] VITALS (14 sets, daily range): BP systolic 106–124; BP diastolic 63–87; PULSE 76–110; RESP 18–25; TEMP 37.2–39.7; O2SAT 90–97
[2020-01-17 00:30] LABS: SARS Covid-2 Antigen Positive (Negative)
--- NOTE | 2020-01-17 00:42 | CTR_ITS ---
PROCEDURE INFORMATION: Exam: CT Chest Without Contrast Exam date and time: 01/17/2020 1:08 AM Age: 69 years old Clinical indication: Fever and shortness of breath; Patient HX: HX leukemia, HX covid+ 2 weeks ago. TECHNIQUE: Imaging protocol: Computed tomography of the chest without contrast. Radiation optimization: All CT scans at this facility use at least one of these dose optimization techniques: automated exposure control; mA and/or kV adjustment per patient size (includes targeted exams where dose is matched to clinical indication); or iterative reconstruction. COMPARISON: CT chest wo con [id number] 01/02/2020 1:36 PM RADIATION DOSE METRICS: Total DLP (mGy-cm): 1021.89 FINDINGS: Thyroid: Extension of right thyroid lobe into upper mediastinum is a chronic finding when correlated back to 2017. Lungs: Bilateral pulmonary infiltrates are again noted with some improvement in some of the infiltrates. A few areas of developing consolidation are suggested which may relate to secondary or superimposed infectious process. Pleural space: Unremarkable. No pneumothorax. No pleural effusion. Heart: Coronary calcifications are noted. Aorta: Aortic calcifications are noted. No findings of aneurysm or mediastinal hemorrhage. Lymph nodes: Mediastinal nodes are unchanged. Kidneys and ureters: Prominent left renal collecting system again noted and only partially imaged. Gallstone again noted in gallbladder . Bones/joints: No acute fracture. Soft tissues: Unremarkable. CT/CT chest con [id number] IMPRESSION: Interval improvement in some areas of infiltrate bilaterally but a few areas exhibit developing consolidation as above. Gallstone in gallbladder. Radiation Dose CTDIVOL = (mGy): DLP = 1021.89 (mGy-cm)
--- NOTE | 2020-01-17 01:40 | PC.NURSE ---
report called to Josie at 014
--- NOTE | 2020-01-17 02:44 | PC.PHAR ---
Vancomycin is dosed at 1000mg IVPB every 12 hours to produce a predicted trough level of 14.69 (population based pharmacokinetic analysis). A trough level has been ordered from the lab to be obtained before the fourth dose to confirm and adjust if needed.
[2020-01-17] MEDS: sodium chloride 0.9% 1,000 ML 75 ML IV ×2 (03:17→15:33)
[2020-01-17] MEDS: acetaminophen 500 mg Tablet PO (03:59)
[2020-01-17] MEDS: vancomycin 1,000 MG in sodium chloride 0.9% 250 ML 250 MG IV ×2 (04:01→16:27)
[2020-01-17] MEDS: albuterol 8 gm MDI 2 PUFF INHALATION ×4 (06:00→20:57)
[2020-01-17 06:13] LABS: Immunoglobulin IGA 122 mg/dL (70-400); Immunoglobulin IGG 1436 mg/dL (700-1600); Immunoglobulin IGM 28 mg/dL (40-230)
[2020-01-17 07:22] LABS: Glucose Point of Care 103 mg/dL (70-110)
[2020-01-17 07:56] LABS: Basophils # 0.2 10^3/uL (0.0-0.1); Basophils % 0.5 %; Hematocrit 25.6 % (42.0-52.0); Hemoglobin 7.6 g/dL (11.7-16.6); Lymphocytes % 92.2 %; Mean Corpuscular HGB Conc 29.7 g/dL (30.0-36.0); Mean Corpuscular Volume 91.1 fL (80-94); Mean Platelet Volume 11.5 fL (7.4-10.4); Monocytes # 0.1 10^3/uL (0.2-0.9); Monocytes % 0.2 %; Neutrophils % 6.7 %; Nucleated Red Blood Cells % 0 %; Platelet Count 107 10^3/cmm (130-400); Red Blood Count 2.81 10^6/uL (4.1-5.3); Red Cell Distribution Width 16.3 % (12.1-15.1)
[2020-01-17 08:23] LABS: Alanine Aminotransferase 104 U/L (0-41); Albumin Level 2.4 g/dL (3.5-5.2); Alkaline Phosphatase 146 IU/L (40-130); Anion Gap 14.2 (5-19); Aspartate Amino Transferase 149 U/L (0-40); Blood Urea Nitrogen 19 mg/dL (8-23); Carbon Dioxide 26 mmol/L (22-29); Chloride 98 mmol/L (98-107); Globulin 3.6 g/dL (1.3-4.6); Glomerular Filtration Rate 83.7 mL/min (90-130); Glucose 107 mg/dL (65-115); Osmolality Calculated 283 mOsm/kg (285-295); Potassium 3.2 mmol/L (3.5-5.1); Sodium 135 mmol/L (136-145); Total Bilirubin 1.3 mg/dL (0.15-1.2)
[2020-01-17 09:13] LABS: Slide Review Slide Review Perform
[2020-01-17 09:14] LABS: White Blood Count 32.6 10^3/uL (4.0-10.0)
[2020-01-17] MEDS: finasteride 5 mg Tablet PO (10:14)
--- NOTE | 2020-01-17 10:14 | CT_ITS ---
WS: [id number] CT ABDOMEN PELVIS TECHNIQUE: Contrast-enhanced CT of the abdomen and pelvis with coronal and sagittal reformatted image s. CLINICAL INFORMATION: fever COMPARISON: None. DLP: 788.[address] scans at [facility] use at least one of these dose optimization techniques: automat ed exposure control; mA and/or kV adjustment per patient size (includes targeted exams where dose is matched to clinical indication); or iterative reconstruction. FINDINGS: Mild diffuse fatty infiltration of the liver. Hazy groundglass infiltrates in the lung base s. Subsegmental atelectasis in the lung bases. Findings appear progressed compared to previous. Small gallbladder calculus in the gallbladder neck. No pericholecystic fluid or gallbladder wall thickenin g. Adrenal glands are normal. Mild splenomegaly. Left hydronephrosis has improved compared to previous. Left ureter is decompressed. Normal renal pare nchymal enhancement. Normal caliber abdominal aorta. Aortic calcification. A few air-fluid levels in the transverse colon likely due to mild adynamic ileus. No evidence of high-grade obstruction. Small esophageal hiatal hernia. No free fluid in the abdomen or pelvis. Enlarged heterogeneously enhancing prostate measuring 6.6 x 8.0 x 8.0 CM. Indentation on the bladder. Recommend correlation PSA. Urine distended bladder. Seminal vesicles appear normal. Enlarged iliac lymph nodes bilaterally unchanged from previous.. No inguinal lymphadenopathy. Incidental fat-contain ing left inguinal hernia. CT/CT abdomen pelvis w con* [id number] IMPRESSION: 1. Mobile gallbladder calculus near the gallbladder neck. No pericholecystic f luid or gallbladder wall thickening. 2. No intrahepatic biliary ductal dilatation. Mild diffuse fatty infiltration of the liver. 3. Bibasilar groundglass infiltrates have progressed compared to previous. 4. Small esophageal hiatal hernia. 5. Left pelvocaliectasis/hydronephrosis has improved. Normal left ureter. 6. Markedly enlarged heterogeneous enhancing prostate with enlarged iliac yahaira n lymph nodes unchanged. 7. A few air-fluid levels in normal caliber transverse colon likely due to chapito namic ileus. No evidence of high-grade obstruction.
[2020-01-17] MEDS: lisinopril 20 mg Tablet PO (10:15)
[2020-01-17] MEDS: famotidine 20 mg Tablet PO ×2 (10:15→17:51)
[2020-01-17] MEDS: metoprolol tartrate 25 mg Tablet 12.5 MG PO ×2 (10:15→17:51)
[2020-01-17] MEDS: apixaban 5 mg Tablet PO ×2 (10:15→17:51)
[2020-01-17 10:50] LABS: LAB Peripheral Smear Sent for Review
[2020-01-17 10:56] LABS: Thyroid Stimulating Hormone 0.48 uIU/mL (0.27-4.20)
[2020-01-17 12:19] LABS: Glucose Point of Care 88 mg/dL (70-110)
[2020-01-17] MEDS: iohexol 300 mg/mL 100 mL Btl IV (13:18)
[2020-01-17] MEDS: acetaminophen 325 mg Tablet 650 MG PO (15:31)
[2020-01-17] MEDS: benzonatate 100 mg Capsule PO ×2 (15:31→21:04)
--- NOTE | 2020-01-17 17:19 | PC.RESP ---
Pulmonary Rehab information sent to patient.
[2020-01-17 17:46] LABS: Urine Appearance Clear (CLEAR); Urine Color Yellow (Yellow); pH Urine 5 (5-7)
[2020-01-17 17:47] LABS: Add Urine Microscopic? YES; Bilirubin Urine 1+ (Negative); Blood Urine 3+ (Negative); Glucose Urine UA Norm (Normal); Ketones Urine Negative (Negative); Leukocyte Esterase Urine Negative (Negative); Nitrate Urine Negative (Negative); Protein Urine 2+ (Negative); Urobilinogen Urine 4 mg/dL (Negative)
[2020-01-17 17:48] LABS: Bacteria Urine 1+ /hpf
[2020-01-17 17:52] LABS: Add Urine Culture? No
--- NOTE | 2020-01-17 17:58 | PM.PN ---
Subjective Subjective: Interval history: Admitted last night. On examination patient lying comfortably in bed. Has had T-max of 103 Fahrenheit. Denies any nausea, vomiting, headache, dizziness, abdominal pain. Complaining of occasional diarrhea at home. Denies dysuria. Does not complain of abdominal pain at present. No stool sample or urine sample has been sent for now. Vitals/I&O/Wt Last Vital Signs Temp 99.2 F 01/17/20 16:54 Pulse 109 H 01/17/20 16:00 Resp 20 H 01/17/20 16:00 BP 111/65 01/17/20 16:00 Pulse Ox 90 01/17/20 16:00 01/17/20 01/17/20 01/17/20 06:59 14:59 22:59 Intake Total 350 / 350 280 / 280 920 / 1200 Output Total 400 / 400 Balance -50 / -50 280 / 280 920 / 1200 Weight last 48 hrs Weight 87.09 kg Physical Exam Narrative: EXAM NARRATIVE: Appears more than stated age Clinically looks dehydrated No active complaints Saturating well on 5 L nasal cannula No acute respiratory distress EOMI, PERRLA Appropriate mood and affect S1, S2 sinus tachycardia Abdomen soft nontender bowel sounds present, no right upper quadrant tenderness, Alicia sign is negative, soft abdomen, no signs of peritonitis No lower extremity edema gangrene ulcer Appropriate mood and affect Neurologically nonfocal exam No signs of meningitis No skin breakdown Data : 01/17/20 07:09 01/17/20 07:09 Micro: Microbiology 01/16/20 18:41 Blood Culture - Preliminary Blood SPECIMEN COLLECTED 01/16/20 18:40 Blood Culture - Preliminary Blood SPECIMEN COLLECTED A&P Assessment and plan (1) Sepsis: Status: Acute Qualifiers: Sepsis acute organ dysfunction status: without acute organ dysfunction Sepsis type: sepsis due to unspecified organism Qualified Code(s): A41.9 - Sepsis, unspecified organism (2) Gall bladder stones: Status: Acute (3) Hypoxia: Status: Acute (4) Thickening of wall of gallbladder: Status: Acute Additional A&P Information Sepsis Source unknown, infectious versus noninfectious fever, sepsis criteria met with fever tachycardia, leukocytosis Continue vancomycin and Primaxin. We will follow-up culture results. Also add azithromycin. Still awaiting C. difficile, urine analysis, urine culture results. We will order peripheral smear. We will do CT abdomen pelvis with contrast. CT chest results appreciated. Rapid Covid antigen negative. HIDA scan was ordered overnight. We will follow the results. Chemotherapeutic agent still on hold Dr. Plaza requested broad-spectrum antibiotics and immunoglobulin panel Chronic hypoxic respiratory failure without acute exacerbation Currently requiring 4 to 5 L at baseline since his Covid pneumonia Start on Advair, Spiriva. Start on vitamin C, zinc. CLL: Follows up with Dr. Plaza, kindly see their notes for further details, chemotherapeutic agents on hold He was not able to follow-up with Dr. Plaza this month Patient received Neupogen for neutropenia on last admission Dr. Plaza has been updated Type 2 diabetes: Carb consistent diet. Sliding scale at moderate dose. Paroxysmal A. fib: Rate controlled at present. Continue home dose of metoprolol. Continue with Eliquis. Recent diarrhea after starting Levaquin, check C. difficile panel DNR/DNI goals of care discussed with the patient Carcasses diet, n.p.o. after midnight for HIDA scan DVT prophylaxis: Not indicated currently is on Eliquis, he takes Eliquis for paroxysmal A. fib Attestations Medical Necessity Statement*: Patient requires hospitalization for management of sepsis of unknown origin, leukocytosis, paroxysmal A. fib, diarrhea most likely C. difficile. Time Spent in Patient Care: Greater than 35 minutes (>than 50% of time spent in counselling and/or direct pt care on unit). Coding Level of Care Code Acute Optical Dispenser for g Fwd Diagnoses Sepsis A41.9 Sepsis acute organ dysfunction status: without acute organ dysfunction Sepsis type: sepsis due to unspecified organism Gall bladder stones K80.20 Hypoxia R09.02 Thickening of wall of gallbladder K82.8
[2020-01-17 18:04] LABS: Glucose Point of Care 124 mg/dL (70-110)
[2020-01-17 20:46] LABS: Glucose Point of Care 110 mg/dL (70-110)
[2020-01-17] MEDS: azithromycin 500 MG in sodium chloride 0.9% 250 ML 250 MG IV (21:02)
[2020-01-18] VITALS (12 sets, daily range): BP systolic 105–131; BP diastolic 62–74; PULSE 71–100; RESP 18–20; TEMP 37.1–39.2; O2SAT 88–98
[2020-01-18] MEDS: acetaminophen 500 mg Tablet PO ×2 (00:06→08:09)
[2020-01-18] MEDS: sodium chloride 0.9% 1,000 ML 75 ML IV (01:28)
[2020-01-18 01:41] LABS: Procalcitonin 1.65 ng/mL (0-0.5)
[2020-01-18 02:02] LABS: Iron 16 ug/dL (59-158); Percent Saturation 12.4 % (20-50); Total Iron Binding Capacity 129 mcg/dl; Unsaturated Iron Binding 113 ug/dL (112-347)
[2020-01-18] MEDS: sodium chloride 0.9% (100 ml) 100 ML 150 ML (02:16)
[2020-01-18] MEDS: vancomycin 1,000 MG in sodium chloride 0.9% 250 ML 250 MG IV (04:48)
[2020-01-18 05:48] LABS: Anion Gap 11.5 (5-19); Blood Urea Nitrogen 20 mg/dL (8-23); Calcium 7.5 mg/dL (8.5-10.5); Carbon Dioxide 27 mmol/L (22-29); Chloride 103 mmol/L (98-107); Glomerular Filtration Rate 95.8 mL/min (90-130); Glucose 97 mg/dL (65-115); Osmolality Calculated 289 mOsm/kg (285-295); Potassium 3.5 mmol/L (3.5-5.1); Total Bilirubin 0.9 mg/dL (0.15-1.2)
[2020-01-18 05:49] LABS: Alanine Aminotransferase 117 U/L (0-41); Albumin Level 2.1 g/dL (3.5-5.2); Alkaline Phosphatase 121 IU/L (40-130); Aspartate Amino Transferase 153 U/L (0-40); Globulin 2.7 g/dL (1.3-4.6); Total Protein 4.8 g/dL (6.6-8.7)
[2020-01-18 06:51] LABS: Lymphocytes % 95.1 %; Mean Corpuscular Hemoglobin 27.3 pg (28.0-34.0); Mean Corpuscular Volume 90.9 fL (80-94); Mean Platelet Volume 11.7 fL (7.4-10.4); Monocytes % 0.1 %; Neutrophils # 2.35 10^3/uL (1.8-7.7); Neutrophils % 4.5 %; Nucleated Red Blood Cells % 0 %; Platelet Count 133 10^3/cmm (130-400); Red Cell Distribution Width 16.3 % (12.1-15.1)
--- NOTE | 2020-01-18 07:00 | NM_ITS ---
WS: [id number] NUCLEAR MEDICINE HIDA SCAN CLINICAL INFORMATION: Sepsis abnormal transaminases TECHNIQUE: Following intravenous administration of 7.6 mCi of technetium 99m mebrofenin, images of th e abdomen were obtained over the course of 60 minutes. Next, gallbladder ejection fraction was determ ined by obtaining preprandial and one-hour postprandial images of the gallbladder following oral emelyn stion of Ensure. COMPARISON: CT abdomen pelvis 17 January 2020, and ultrasound January 16, 2020 FINDINGS: Normal hepatic uptake at 5 minutes. Normal hepatic excretion. Gallbladder is visualized by 30 minutes . No evidence of acute cholecystitis. Normal common bile duct and small bowel activity. No evidence o f choledocholithiasis. Gallbladder ejection fraction 90% within normal limits. No evidence of chronic cholecystitis. NM/NM hepatobiliary w phar* [id number] IMPRESSION: 1. No evidence of acute or chronic cholecystitis. 2. Gallbladder ejection fraction 90% within normal limits.
[2020-01-18 07:07] LABS: Slide Review Slide Review Perform; White Blood Count 52.6 10^3/uL (4.0-10.0)
[2020-01-18 07:19] LABS: Glucose Point of Care 88 mg/dL (70-110)
[2020-01-18 07:26] LABS: Sodium 138 mmol/L (136-145)
[2020-01-18] MEDS: benzonatate 100 mg Capsule PO ×3 (08:09→21:17)
[2020-01-18] MEDS: finasteride 5 mg Tablet PO (08:09)
[2020-01-18] MEDS: ascorbic acid 500 mg Tablet PO (08:09)
[2020-01-18] MEDS: metoprolol tartrate 25 mg Tablet 12.5 MG PO ×2 (08:09→17:35)
[2020-01-18] MEDS: apixaban 5 mg Tablet PO ×2 (08:09→17:35)
[2020-01-18] MEDS: lisinopril 20 mg Tablet PO (08:09)
[2020-01-18] MEDS: zinc gluconate 50 mg Tablet PO (08:10)
[2020-01-18] MEDS: famotidine 20 mg Tablet PO ×2 (08:10→17:35)
[2020-01-18] MEDS: albuterol 8 gm MDI 2 PUFF INHALATION ×3 (09:13→20:26)
[2020-01-18 10:12] LABS: ABG PCO2 34.8 mmHg (35-45); ABG PH Result 7.47 (7.35-7.45); Alveolar-Arterial Oxygen Gradi 20.5 mmHg (5-10); Arterial Blood Gas Hematocrit 29.3 % (42-52); Base Excess ABG 1.7 mmol/L (-2.0-2.0); Blood Gas Allen Test Pos; Blood Gas Operator Identificat MONRO; Blood Gas Sample Site Radial, right; Blood Gas Sample Type Arterial; Carboxyhemoglobin 1.4 %THgb (0.4-20.1); HCO3 ABG 25.3 mmol/L (22-26); HGB O2 Sat 95.2 % (95-100); Ionized Calcium Level - ABG 1.1 mmol/L (1.1-1.4); Methemoglobin 0.8 % (0.4-1.5); Oxygen Device NC; Oxygen Saturation ABG 97.3; PO2 ABG 84.4 mmHg (80.0-100.0); Potassium Level - ABG 3.1 mmol/L (3.5-5.0); Total Hemoglobin 9.5 g/dL (14-18)
[2020-01-18 13:01] LABS: Glucose Point of Care 144 mg/dL (70-110)
[2020-01-18 16:19] LABS: Vancomycin Trough 8.5 ug/mL (10-15)
--- NOTE | 2020-01-18 16:52 | P.PN_ITS ---
Subjective Subjective: Interval history: This morning patient was examined, he is febrile overnight, denies any shortness of breath, no chest pain, no lightheadedness, dizziness, has a poor appetite, no abdominal pain, no diarrhea, no dysuria, no hematuria, no chest pain, no headache, no blurry vision, no neck pain, no back pain, he is not sure why he continues to have fevers Vitals/I&O/Wt Last Vital Signs Temp 98.8 F 01/18/20 16:00 Pulse 76 01/18/20 16:00 Resp 18 01/18/20 16:00 BP 106/62 01/18/20 16:00 Pulse Ox 92 01/18/20 16:00 01/18/20 01/18/20 01/18/20 06:59 14:59 22:59 Intake Total 1293.75 / 3083.75 100 / 100 Output Total 425 / 925 300 / 300 Balance 868.75 / 2158.75 -200 / -200 Physical Exam Const: COMMON NORMALS: no acute distress and patient oriented x3 HENMT: COMMON NORMALS: normocephalic HEAD & SCALP: normocephalic Neck/C-Spine: COMMON NORMALS: no JVD Resp: COMMON NORMALS: normal respiratory effort, No retractions and No use of accessory muscles AUSCULTATION: wheezes Cardio: COMMON NORMALS: no JVD, regular rate, regular rhythm, S1 normal heart sound present and S2 normal heart sound present RATE: regular rate RHYTHM: regular rhythm HEART SOUNDS: S1 normal heart sound present and S2 normal heart sound present GI: COMMON NORMALS: Normal to inspection, nondistended, normoactive bowel sounds present, Soft to palpation, non-tender, No hepatosplenomegaly present, no masses and no bruits PALPATION: Yes Soft to palpation and Yes No hep atosplenomegaly present Extremity: COMMON NORMALS: capillary refill normal, no clubbing, cyanosis or edema, no calf tenderness and no pedal edema Neuro: COMMON NORMALS: patient oriented x3 Psych: COMMON NORMALS: mental status grossly normal Data : 01/18/20 06:30 01/18/20 04:50 Micro: Microbiology 01/18/20 15:22 Blood Culture - Preliminary Blood SPECIMEN COLLECTED 01/18/20 15:15 Blood Culture - Preliminary Blood SPECIMEN COLLECTED 01/17/20 16:30 Urine Culture - Preliminary Urine,Clean Catch 01/17/20 19:20 Stool Lactoferrin - Final Stool Enteric Pathogens (PCR) - Final Parasite Antigen Panel - Final C.difficile Toxin B Gene (PCR) - Final Occult Blood (FIT) - Final 01/17/20 19:27 MRSA Culture - Final Nose 01/17/20 19:11 Legionella Urinary Antigen - Final Urine,Voided Bacterial Antigens - Final 01/16/20 18:41 Blood Culture - Preliminary Blood NEGATIVE TO DATE 01/16/20 18:40 Blood Culture - Preliminary Blood NEGATIVE TO DATE A&P Assessment and plan (1) Sepsis: Status: Acute Qualifiers: Sepsis acute organ dysfunction status: without acute organ dysfunction Sepsis type: sepsis due to unspecified organism Qualified Code(s): A41.9 - Sepsis, unspecified organism (2) Gall bladder stones: Status: Acute (3) Hypoxia: Status: Acute (4) Thickening of wall of gallbladder: Status: Acute (5) Fever: Status: Acute (6) Pneumonia due to COVID-19 virus: Status: Acute Additional A&P Information Sepsis Source unknown, infectious versus noninfectious fever, sepsis criteria met with fever tachycardia, leukocytosis Has lymphocytic leukocytosis, white blood cell count 52.7 Continue vancomycin and Primaxin and azithromycin C. difficile negative Follow urine cultures, blood cultures We will order peripheral smear HIV, hepatitis serology negative, influenza negative CT chest shows bilateral patchy infiltrates, with consolidation Rapid Covid antigen positive, has a history of Covid pneumonia Currently is on 5 L nasal cannula, tells me is on roughly 2 L at home Will start on remdesivir and Decadron for COVID-19, after discussing with infectious disease, possibly has not cleared COVID-19 pneumonia HIDA scan no evidence of acute or chronic cholecystitis Chemotherapeutic agent still on hold Dr. Plaza requested broad-spectrum antibiotics and immunoglobulin panel Ordered repeat blood cultures, CMV, MRSA, respiratory panel, repeat urine cultures, C. difficile, enterocyte panel, PCP PCR, LDH, histoplasma galactomannan antigen urine Chronic hypoxic respiratory failure without acute exacerbation Currently requiring 4 to 5 L at baseline since his Covid pneumonia Start on Advair, Spiriva. Start on vitamin C, zinc. Decadron and remdesivir CLL: Follows up with Dr. Plaza, kindly see their notes for further details, chem otherapeutic agents on hold He was not able to follow-up with Dr. Plaza this month Patient received Neupogen for neutropenia on last admission Dr. Plaza has been updated Type 2 diabetes: Carb consistent diet. Sliding scale at moderate dose. Paroxysmal A. fib: Rate controlled at present. Continue home dose of metoprolol. Continue with Eliquis. Recent diarrhea after starting Levaquin, check C. difficile panel DNR/DNI goals of care discussed with the patient Currently GI soft diet DVT prophylaxis: Not indicated currently is on Eliquis, he takes Eliquis for paroxysmal A. fib Plan: Today we will start treatment for COVID-19 pneumonia, remdesivir, Decadron, repeat old cultures, additional blood tests ordered, continues to have low-grade fevers, continue to monitor Attestations Medical Necessity Statement*: Patient requires hospitalization for sepsis, COVID-19 pneumonia, recurrent fevers Coding Level of Care Code Acute Labor Relations Director for [facility] Fwd Diagnoses Sepsis A41.9 Sepsis acute organ dysfunction status: without acute organ dysfunction Sepsis type: sepsis due to unspecified organism Gall bladder stones K80.20 Hypoxia R09.02 Thickening of wall of gallbladder K82.8 Fever R50.9 Pneumonia due to COVID-19 virus U07.1; J12.89
[2020-01-18 17:47] LABS: Glucose Point of Care 106 mg/dL (70-110)
[2020-01-18] MEDS: dexamethasone 4 mg/mL INJ 6 MG IVP (18:45)
[2020-01-18 18:48] LABS: Lactate Dehydrogenase 443 U/L (135-225)
[2020-01-18 20:49] LABS: Influenza A by IFA Negative (Negative); Influenza B by IFA Negative (Negative)
[2020-01-18] MEDS: azithromycin 500 MG in sodium chloride 0.9% 250 ML 250 MG IV (21:16)
[2020-01-18 21:54] LABS: Glucose Point of Care 140 mg/dL (70-110)
[2020-01-19] VITALS (9 sets, daily range): BP systolic 113–138; BP diastolic 67–77; PULSE 71–88; RESP 18–22; TEMP 36.7–37.9; O2SAT 92–96
[2020-01-19] MEDS: sodium chloride 0.9% 1,000 ML 75 ML IV ×2 (01:29→21:53)
[2020-01-19 04:59] LABS: Lactic Sepsis W/Reflex 2.7 mmol/L (0.5-2.2)
[2020-01-19 05:00] LABS: Procalcitonin 2.41 ng/mL (0-0.5)
[2020-01-19 05:03] LABS: Alanine Aminotransferase 125 U/L (0-41); Albumin Level 1.9 g/dL (3.5-5.2); Alkaline Phosphatase 131 IU/L (40-130); Anion Gap 14.7 (5-19); Aspartate Amino Transferase 221 U/L (0-40); Blood Urea Nitrogen 16 mg/dL (8-23); C Reactive Protein 169.4 mg/L (0.0-4.9); Calcium 7.7 mg/dL (8.5-10.5); Carbon Dioxide 23 mmol/L (22-29); Chloride 103 mmol/L (98-107); Globulin 3.1 g/dL (1.3-4.6); Glomerular Filtration Rate 111.8 mL/min (90-130); Glucose 173 mg/dL (65-115); Magnesium 2.1 mg/dL (1.7-2.3); Osmolality Calculated 289 mOsm/kg (285-295); Phosphorus 3.3 mg/dL (2.5-4.5); Potassium 3.7 mmol/L (3.5-5.1); Sodium 137 mmol/L (136-145); Total Bilirubin 0.5 mg/dL (0.15-1.2)
[2020-01-19 05:08] LABS: Basophils # 0.1 10^3/uL (0.0-0.1); Basophils % 0.4 %; Hematocrit 36.2 % (42.0-52.0); Hemoglobin 10.9 g/dL (11.7-16.6); Lymphocytes # 15.5 10^3/uL (0.8-4.8); Lymphocytes % 95.5 %; Mean Corpuscular HGB Conc 30.1 g/dL (30.0-36.0); Mean Corpuscular Hemoglobin 27.2 pg (28.0-34.0); Mean Corpuscular Volume 90.3 fL (80-94); Mean Platelet Volume 12.7 fL (7.4-10.4); Monocytes % 0.1 %; Neutrophils % 3.9 %; Nucleated Red Blood Cells % 0 %; Platelet Count 74 10^3/cmm (130-400); Red Blood Count 4.01 10^6/uL (4.1-5.3); Red Cell Distribution Width 16.3 % (12.1-15.1); White Blood Count 16.2 10^3/uL (4.0-10.0)
[2020-01-19 05:58] LABS: Reflex Lactate Order REFLEX LACTIC ORDERD
[2020-01-19 06:36] LABS: Glucose Point of Care 127 mg/dL (70-110)
[2020-01-19 07:23] LABS: Slide Review Slide Review Perform
[2020-01-19 07:26] LABS: Neutrophils # 0.62 10^3/uL (1.8-7.7)
--- NOTE | 2020-01-19 07:42 | XR_ITS ---
WS: [id number] Portable AP upright chest, 01/19/2020 Clinical Data: sob Comparison: Portable chest, 01/16/2020. Findings: The bilateral patchy opacities remain unchanged. The heart is enlarged. The aortic arch and descending aorta are tortuous. There is a small metal fragment overlying the right upper chest. XR/XR chest 1V portable [id number] Impression: No change from previous chest x-ray.
[2020-01-19] MEDS: albuterol 8 gm MDI 2 PUFF INHALATION ×3 (08:42→20:40)
[2020-01-19] MEDS: apixaban 5 mg Tablet PO ×2 (09:06→18:18)
[2020-01-19] MEDS: finasteride 5 mg Tablet PO (09:06)
[2020-01-19] MEDS: metoprolol tartrate 25 mg Tablet 12.5 MG PO ×2 (09:07→18:19)
[2020-01-19] MEDS: famotidine 20 mg Tablet PO ×2 (09:08→18:18)
[2020-01-19] MEDS: benzonatate 100 mg Capsule PO ×3 (09:08→21:50)
[2020-01-19] MEDS: zinc gluconate 50 mg Tablet PO (09:08)
[2020-01-19] MEDS: lisinopril 20 mg Tablet PO (09:08)
[2020-01-19] MEDS: ascorbic acid 500 mg Tablet PO (09:08)
[2020-01-19 09:56] LABS: Lactic Acid level (Lactate) 1.8 mmol/L (0.5-2.2)
--- NOTE | 2020-01-19 12:11 | PC.SOCIAL ---
IMM Update Pg. 2 of IMM updated and explained to patient over the phone, who verbalized understanding. Copy provided to patient's nurse to give to him.
[2020-01-19 12:32] LABS: Glucose Point of Care 142 mg/dL (70-110)
--- NOTE | 2020-01-19 13:38 | PM.PN ---
Subjective Subjective: Interval history: This morning patient was examined, he had low-grade temperatures overnight, T-max 100.2, on 4 L nasal cannula, states that he does feel better, he had a bowel movement yesterday, feels better since then, no abdominal pain, no nausea, no vomiting, no dysuria, no hematuria, no back pain, no neck pain, overall doing better Vitals/I&O/Wt Last Vital Signs Temp 98.0 F 01/19/20 12:00 Pulse 71 01/19/20 12:00 Resp 18 01/19/20 12:00 BP 138/77 01/19/20 12:00 Pulse Ox 95 01/19/20 12:00 01/18/20 01/19/20 01/19/20 22:59 06:59 14:59 Intake Total 470 / 1670 460 / 2130 240 / 240 Output Total 725 / 1025 160 / 1185 200 / 200 Balance -255 / 645 300 / 945 40 / 40 Physical Exam Const: COMMON NORMALS: no acute distress and patient oriented x3 HENMT: COMMON NORMALS: normocephalic HEAD & SCALP: normocephalic Neck/C-Spine: COMMON NORMALS: no JVD Resp: COMMON NORMALS: normal respiratory effort, No retractions, No use of accessory muscles and clear to auscultation bilaterally AUSCULTATION: clear to auscultation bilaterally Cardio: COMMON NORMALS: no JVD, regular rate, regular rhythm, S1 normal heart sound present and S2 normal heart sound present RATE: regular rate RHYTHM: regular rhythm HEART SOUNDS: S1 normal heart sound present and S2 normal heart sound present GI: COMMON NORMALS: Normal to inspection, nondistended, normoactive bowel sounds present, Soft to palpation, non-tender, No hepatosplenomegaly present, no masses and no bruits PALPATION: Yes Soft to palpation and Yes No hepatosplenomegaly present Extremity: COMMON NORMALS: capillary refill normal, no clubbing, cyanosis or edema, no calf tenderness and no pedal edema Neuro: COMMON NORMALS: patient oriented x3 Psych: COMMON NORMALS: mental status grossly normal Data : 01/19/20 03:36 01/19/20 03:36 Micro: Microbiology 01/18/20 15:20 Gram Stain - Final Sputum - Expectorated Sputum Sputum Culture - Preliminary 01/17/20 16:30 Urine Culture - Final Urine,Clean Catch 01/18/20 15:22 Blood Culture - Preliminary Blood SPECIMEN COLLECTED 01/18/20 15:15 Blood Culture - Preliminary Blood SPECIMEN COLLECTED 01/17/20 19:20 Stool Lactoferrin - Final Stool Enteric Pathogens (PCR) - Final Parasite Antigen Panel - Final C.difficile Toxin B Gene (PCR) - Final Occult Blood (FIT) - Final 01/17/20 19:27 MRSA Culture - Final Nose 01/17/20 19:11 Legionella Urinary Antigen - Final Urine,Voided Bacterial Antigens - Final A&P Assessment and plan (1) Sepsis: Status: Acute Qualifiers: Sepsis acute organ dysfunction status: without acute organ dysfunction Sepsis type: sepsis due to unspecified organism Qualified Code(s): A41.9 - Sepsis, unspecified organism (2) Gall bladder stones: Status: Acute (3) Hypoxia: Status: Acute (4) Thickening of wall of gallbladder: Status: Acute (5) Fever: Status: Acute (6) Pneumonia due to COVID-19 virus: Status: Acute (7) Acute respiratory failure with hypoxia: Status: Acute (8) Secondary bacterial pneumonia: Status: Acute (9) Neutropenia: Status: Acute Additional A&P Information Sepsis Likely secondary to COVID-19 pneumonia and secondary bacterial pneumonia, infectious versus noninfectious fever, sepsis criteria met with fever tachycardia, leukocytosis Leukocytosis improved to 16.2, does have neutropenia of 0.62 Continue vancomycin and Primaxin and azithromycin C. difficile negative Follow urine cultures, blood cultures We will order peripheral smear HIV, hepatitis serology negative, influenza negative CT chest shows bilateral patchy infiltrates, with consolidation Rapid Covid antigen positive, has a history of Covid pneumonia Currently is on 4 L nasal cannula, tells me is on roughly 2 L at home Continue on remdesivir and Decadron for COVID-19, after discussing with infectious disease, possibly has not cleared COVID-19 pneumonia, doing better since remdesivir Decadron started HIDA scan no evidence of acute or chronic cholecystitis Chemotherapeutic agent still on hold Dr. Plaza requested broad-spectrum antibiotics and immunoglobulin panel Ordered repeat blood cultures, CMV, MRSA, respiratory panel, repeat urine cultures, C. difficile, enterocyte panel, PCP PCR, LDH, histoplasma galactomannan antigen urine Chronic hypoxic respiratory failure without acute exacerbation Currently requiring 4 to 5 L at baseline since his Covid pneumonia Start on Advair, Spiriva. Start on vitamin C, zinc. Decadron and remdesivir CLL: Follows up with Dr. Plaza, kindly see their notes for further details, chemotherapeutic agents on hold He was not able to follow-up with Dr. Plaza this month Patient received Neupogen for neutropenia on last admission Dr. Plaza has been updated Type 2 diabetes: Carb consistent diet. Sliding scale at moderate dose. Paroxysmal A. fib: Rate controlled at present. Continue home dose of metoprolol. Continue with Eliquis. Recent diarrhea after starting Levaquin, check C. difficile panel DNR/DNI goals of care discussed with the patient Currently GI soft diet DVT prophylaxis: Not indicated currently is on Eliquis, he takes Eliquis for paroxysmal A. fib Plan: Continue to monitor fevers, get up out of bed, continue remdesivir, continue Decadron, follow blood cultures, if continues to have fevers can consider Bactrim for PCP pneumonia a Attestations Medical Necessity Statement*: She requires hospitalization due to acute respiratory failure secondary COVID-19 pneumonia, secondary bacterial pneumonia Coding Level of Care Code Acute Drafter Geological for [facility] Fwd Diagnoses Sepsis A41.9 Sepsis acute organ dysfunction status: without acute organ dysfunction Sepsis type: sepsis due to unspecified organism Gall bladder stones K80.20 Hypoxia R09.02 Thickening of wall of gallbladder K82.8 Fever R50.9 Pneumonia due to COVID-19 virus U07.1; J12.89 Acute respiratory failure with hypoxia J96.01 Secondary bacterial pneumonia J15.9 Neutropenia D70.9
[2020-01-19 14:28] LABS: Cytomegalovirus Antibody (IGG) <0.60 U/mL; Cytomegalovirus Antibody (IGM) <30.00 AU/mL
[2020-01-19 18:15] LABS: Glucose Point of Care 153 mg/dL (70-110)
--- NOTE | 2020-01-19 18:52 | PC.NURSE ---
SHIFT SUMMARY PT HAS HAD NO SOB, PAIN, NAUSEA, OR DISCOMFORT THIS SHIFT. PT HAS REFUSED INSULIN DUE TO HIM STATING 2 UNITS (WHAT HE QUALIFIED FOR) IS NOT VERY MUCH AND WONT DO MUCH. NURSE NOTIFIED DR WALTERS. NO CHANGES THIS SHIFT.
[2020-01-19] MEDS: dexamethasone 4 mg/mL INJ 6 MG IVP (20:11)
[2020-01-19 22:09] LABS: Glucose Point of Care 154 mg/dL (70-110)
[2020-01-19] MEDS: azithromycin 500 MG in sodium chloride 0.9% 250 ML 250 MG IV (22:47)
[2020-01-20] VITALS (13 sets, daily range): BP systolic 129–144; BP diastolic 55–79; PULSE 59–79; RESP 16–20; TEMP 36.4–37.1; O2SAT 92–98
[2020-01-20 06:15] LABS: Basophils # 0.1 10^3/uL (0.0-0.1); Basophils % 0.6 %; Hematocrit 25.7 % (42.0-52.0); Hemoglobin 7.7 g/dL (11.7-16.6); Lymphocytes # 22.1 10^3/uL (0.8-4.8); Lymphocytes % 96.9 %; Mean Corpuscular Hemoglobin 27.3 pg (28.0-34.0); Mean Corpuscular Volume 91.1 fL (80-94); Monocytes % 0.1 %; Neutrophils % 2.4 %; Nucleated Red Blood Cells % 0 %; Platelet Count 88 10^3/cmm (130-400); Red Blood Count 2.82 10^6/uL (4.1-5.3); White Blood Count 22.8 10^3/uL (4.0-10.0)
[2020-01-20 07:01] LABS: Alanine Aminotransferase 111 U/L (0-41); Albumin Level 1.8 g/dL (3.5-5.2); Alkaline Phosphatase 114 IU/L (40-130); Anion Gap 12.7 (5-19); Aspartate Amino Transferase 120 U/L (0-40); Blood Urea Nitrogen 17 mg/dL (8-23); C Reactive Protein 88.6 mg/L (0.0-4.9); Calcium 7.8 mg/dL (8.5-10.5); Carbon Dioxide 24 mmol/L (22-29); Chloride 107 mmol/L (98-107); Globulin 3.2 g/dL (1.3-4.6); Glomerular Filtration Rate 164.9 mL/min (90-130); Glucose 134 mg/dL (65-115); Osmolality Calculated 294 mOsm/kg (285-295); Phosphorus 4.1 mg/dL (2.5-4.5); Potassium 3.7 mmol/L (3.5-5.1); Sodium 140 mmol/L (136-145); Total Bilirubin 0.4 mg/dL (0.15-1.2)
[2020-01-20 07:44] LABS: Procalcitonin 1.46 ng/mL (0-0.5)
[2020-01-20 08:17] LABS: Slide Review Slide Review Perform
[2020-01-20 08:19] LABS: Neutrophils # 0.53 10^3/uL (1.8-7.7)
--- NOTE | 2020-01-20 08:24 | ECG_ITS ---
[facility] Test Date: 2020-01-20 Pat Name: Lb Garcia Department: Room: 271 Gender: Male Evaluation Assistant: : 1950 Requested By: Manuel Wagner Order Number: [id number] Mundo MD: Suyapa Murillo M.D. Measurements Intervals [place] Rate: 68 P: 26 TX: 161 QRS: -15 QRSD: 114 T: 6 QT: 434 QTc: 462 Interpretive Statements SINUS RHYTHM MODERATE INTRAVENTRICULAR CONDUCTION DELAY [110+ ms QRS DURATION] Compared to ECG 01/05/2020 15:20:23 Sinus bradycardia no longer present Prolonged QT interval no longer present Electronically Signed On 01-20-2020 18:57:07 CONTINUOUS CONVEYOR SCREEN DRIER by Suyapa Murillo M.D. [id number]
[2020-01-20 08:51] LABS: Glucose Point of Care 142 mg/dL (70-110)
[2020-01-20] MEDS: zinc gluconate 50 mg Tablet PO (09:28)
[2020-01-20] MEDS: metoprolol tartrate 25 mg Tablet 12.5 MG PO ×2 (09:28→17:56)
[2020-01-20] MEDS: finasteride 5 mg Tablet PO (09:28)
[2020-01-20] MEDS: benzonatate 100 mg Capsule PO ×3 (09:28→21:25)
[2020-01-20] MEDS: famotidine 20 mg Tablet PO ×2 (09:28→17:56)
[2020-01-20] MEDS: lisinopril 20 mg Tablet PO (09:28)
[2020-01-20] MEDS: ascorbic acid 500 mg Tablet PO (09:28)
[2020-01-20 09:31] LABS: LAB Peripheral Smear Sent for Review
[2020-01-20] MEDS: sodium chloride 0.9% (100 ml) 100 ML 30 ML (11:39)
[2020-01-20 12:28] LABS: Lactate Dehydrogenase 292 U/L (135-225)
[2020-01-20 12:28] LABS: Glucose Point of Care 175 mg/dL (70-110)
[2020-01-20 13:46] LABS: Lymphocytes 94 %; Segmented Neutrophils 6 %; Total Cells Counted 100 (0-100)
[2020-01-20 13:47] LABS: Eosinophils 0 %
[2020-01-20 13:48] LABS: Platelet Estimate Decreased (Normal)
[2020-01-20 13:49] LABS: Smudge Cells 2+
[2020-01-20 14:22] LABS: LAB Peripheral Smear Sent for Review
--- NOTE | 2020-01-20 15:00 | P.PN_ITS ---
Subjective Subjective: Interval history: This morning patient was examined, he sitting up in bed, talking to his sister Almita, he remained afebrile for the last 24 hours, no chest pain, no shortness of breath, no lightheadedness, no dizziness, no nausea, no vomiting Concerning orders patient's morning labs, white blood cell count is still 22.8, hemoglobin down to 7.7, platelet count 88, absolute neutrophil count 0.53 Patient feels fine, states that he does have weakness, but overall he is doing well, which is promising I discussed the case with Dr. Plaza, I am concerned that patient is having bone marrow suppression secondary to possible antibiotics, and or remdesivir and/or COVID-19, there is also the possibility that he is undergoing Hinkle transformation or some component of hemolytic anemia, Dr. Plaza recommended to stop antibiotics, monitor counts, recommended transfer to [facility] for further evaluation I discussed transfer to [facility] with patient, he voiced understanding, all questions answered, agreed for transfer I called [facility], patient has been accepted to the general medical floors, COVID-19 positive, however there backlogged in terms of beds, he is on the wait list Vitals/I&O/Wt Last Vital Signs Temp 98.1 F 01/20/20 13:48 Pulse 59 L 01/20/20 13:48 Resp 16 01/20/20 13:48 BP 138/78 01/20/20 13:48 Pulse Ox 98 01/20/20 13:48 01/20/20 01/20/20 01/20/20 06:59 14:59 22:59 Intake Total 920 / 920 Output Total 1225 / 2525 400 / 400 Balance -1225 / -495 520 / 520 Physical Exam Const: COMMON NORMALS: no acute distress and patient oriented x3 HENMT: COMMON NORMALS: normocephalic HEAD & SCALP: normocephalic Neck/C-Spine: COMMON NORMALS: no JVD Resp: COMMON NORMALS: normal respiratory effort, No retractions, No use of accessory muscles and clear to auscultation bilaterally AUSCULTATION: clear to auscultation bilaterally Cardio: COMMON NORMALS: no JVD, regular rate, regular rhythm, S1 normal heart sound present and S2 normal heart sound present RATE: regular rate RHYTHM: regular rhythm HEART SOUNDS: S1 normal heart sound present and S2 normal heart sound present GI: COMMON NORMALS: Normal to inspection, nondistended, normoactive bowel sounds present, Soft to palpation, non-tender, No hepatosplenomegaly present, no masses and no bruits PALPATION: Yes Soft to palpation and Yes No hepatosplenomegaly present Extremity: COMMON NORMALS: capillary refill normal, no clubbing, cyanosis or edema, no calf tenderness and no pedal edema Neuro: COMMON NORMALS: patient oriented x3 Psych: COMMON NORMALS: mental status grossly normal Data : 01/20/20 05:57 01/20/20 05:57 Micro: Microbiology 01/18/20 21:20 Urine Culture - Preliminary Urine,Voided 01/18/20 15:22 Blood Culture - Preliminary Blood NEGATIVE TO DATE 01/18/20 15:15 Blood Culture - Preliminary Blood NEGATIVE TO DATE 01/18/20 23:15 Parasite Antigen Panel - Final Stool Routine Collection C.difficile Toxin B Gene (PCR) - Final 01/18/20 15:20 Gram Stain - Final Sputum - Expectorated Sputum Sputum Culture - Preliminary 01/17/20 16:30 Urine Culture - Final Urine,Clean Catch A&P Assessment and plan (1) Sepsis: Status: Acute Qualifiers: Sepsis acute organ dysfunction status: without acute organ dysfunction Sepsis type: sepsis due to unspecified organism Qualified Code(s): A41.9 - Sepsis, unspecified organism (2) Gall bladder stones: Status: Acute (3) Hypoxia: Status: Acute (4) Thickening of wall of gallbladder: Status: Acute (5) Fever: Status: Acute (6) Pneumonia due to COVID-19 virus: Status: Acute (7) Acute respiratory failure with hypoxia: Status: Acute (8) Secondary bacterial pneumonia: Status: Acute (9) Neutropenia: Status: Acute Additional A&P Information Anemia, thrombocytopenia, absolute neutropenia -Hold Eliquis -Transfuse 1 unit PRBC -Neupogen given -Discontinue vancomycin, Primaxin as this can cause bone marrow suppression -Continuing remdesivir for now -LDH high at 292, haptoglobin 453, 0 band neutrophils, 0 atypical lymphocytes -I am concerned that patient is either having bone marrow suppression from antib iotics, and or remdesivir and or COVID-19 and or Hinkle transformation (given fevers, chills, elevated white count), or some component of hemolytic anemia -Dr. Plaza agrees with above plan, recommends transfer to [facility] -Patient has been accepted at [facility], awaiting bed, this could take some time, will call around to other hospitals Sepsis Likely secondary to COVID-19 pneumonia and secondary bacterial pneumonia, infectious versus noninfectious fever, sepsis criteria met with fever tachycardia, leukocytosis Leukocytosis improved to22.8 Discontinue vancomycin and Primaxin Continue azithromycin C. difficile negative Follow urine cultures, blood cultures Peripheral smear pending HIV, hepatitis serology negative, influenza negative CT chest shows bilateral patchy infiltrates, with consolidation Rapid Covid antigen positive, has a history of Covid pneumonia Currently is on 4 L nasal cannula, tells me is on roughly 2 L at home Continue on remdesivir and Decadron for COVID-19, after discussing with infectious disease, possibly has not cleared COVID-19 pneumonia, doing better since remdesivir Decadron started But with bone marrow suppression as above, will highly consider discontinuing remdesivir HIDA scan no evidence of acute or chronic cholecystitis Chemotherapeutic agent still on hold Ordered repeat blood cultures, CMV, MRSA, respiratory panel, repeat urine cultures, C. difficile, enterocyte panel, PCP PCR, LDH, histoplasma galactomannan antigen urine Chronic hypoxic respiratory failure without acute exacerbation Currently requiring 4 to 5 L at baseline since his Covid pneumonia Start on Advair, Spiriva. Start on vitamin C, zinc. Decadron and remdesivir CLL: Follows up with Dr. Plaza, kindly see their notes for further details, chemotherapeutic agents on hold He was not able to follow-up with Dr. Plaza this month Patient received Neupogen for neutropenia on last admission Dr. Plaza has been updated Type 2 diabetes: Carb consistent diet. Sliding scale at moderate dose. Paroxysmal A. fib: Rate controlled at present. Continue home dose of metoprolol. Continue with Eliquis. Recent diarrhea after starting Levaquin, check C. difficile panel DNR/DNI goals of care discussed with the patient Currently GI soft diet DVT prophylaxis: Not indicated currently is on Eliquis, he takes Eliquis for paroxysmal A. fib Plan: Continue to monitor fevers, get up out of bed, continue remdesivir, continue Decadron, follow blood cultures, if continues to have fevers can consider Bactrim for PCP pneumonia a Attestations Medical Necessity Statement*: Patient requires hospitalization for anemia, thrombocytopenia, sepsis, secondary to COVID-19, concern for bone marrow suppression, multiple etiologies, awaiting transfer to [facility] Coding Level of Care Code Acute Clean Room Operator for g Fwd Diagnoses Sepsis A41.9 Sepsis acute organ dysfunction status: without acute organ dysfunction Sepsis type: sepsis due to unspecified organism Gall bladder stones K80.20 Hypoxia R09.02 Thickening of wall of gallbladder K82.8 Fever R50.9 Pneumonia due to COVID-19 virus U07.1; J12.89 Acute respiratory failure with hypoxia J96.01 Secondary bacterial pneumonia J15.9 Neutropenia D70.9
[2020-01-20] MEDS: sodium chloride 0.9% 1,000 ML 75 ML IV (16:06)
[2020-01-20] MEDS: albuterol 8 gm MDI 2 PUFF INHALATION (19:51)
[2020-01-20 20:40] LABS: Glucose Point of Care 138 mg/dL (70-110)
[2020-01-20] MEDS: dexamethasone 4 mg/mL INJ 6 MG IVP (21:21)
[2020-01-20 21:32] LABS: Vancomycin Trough 14.5 ug/mL (10-15)
--- NOTE | 2020-01-20 22:47 | PC.NURSE ---
Ole RN called from [facility], gave report to her on patient. She stated that they are still waiting on a bed for the patient, but will call as soon as one is available.
[2020-01-21] VITALS (10 sets, daily range): BP systolic 128–148; BP diastolic 40–83; PULSE 48–69; RESP 14–20; TEMP 36.4–37.1; O2SAT 92–96
[2020-01-21] MEDS: sodium chloride 0.9% 1,000 ML 75 ML IV ×2 (03:31→17:21)
[2020-01-21 04:18] LABS: Basophils # 0.2 10^3/uL (0.0-0.1); Basophils % 0.7 %; Hematocrit 31.3 % (42.0-52.0); Hemoglobin 9.6 g/dL (11.7-16.6); Lymphocytes # 21.9 10^3/uL (0.8-4.8); Lymphocytes % 93.6 %; Mean Corpuscular HGB Conc 30.7 g/dL (30.0-36.0); Mean Corpuscular Hemoglobin 27.5 pg (28.0-34.0); Mean Corpuscular Volume 89.7 fL (80-94); Mean Platelet Volume 11.8 fL (7.4-10.4); Monocytes % 0.1 %; Neutrophils # 1.16 10^3/uL (1.8-7.7); Nucleated Red Blood Cells % 0 %; Platelet Count 92 10^3/cmm (130-400); Red Blood Count 3.49 10^6/uL (4.1-5.3); White Blood Count 23.4 10^3/uL (4.0-10.0)
[2020-01-21 04:39] LABS: Alanine Aminotransferase 175 U/L (0-41); Albumin Level 2.1 g/dL (3.5-5.2); Alkaline Phosphatase 153 IU/L (40-130); Anion Gap 12.6 (5-19); Aspartate Amino Transferase 187 U/L (0-40); Blood Urea Nitrogen 19 mg/dL (8-23); C Reactive Protein 50.9 mg/L (0.0-4.9); Calcium 7.7 mg/dL (8.5-10.5); Carbon Dioxide 26 mmol/L (22-29); Chloride 107 mmol/L (98-107); Globulin 2.5 g/dL (1.3-4.6); Glomerular Filtration Rate 133.6 mL/min (90-130); Glucose 187 mg/dL (65-115); Magnesium 1.9 mg/dL (1.7-2.3); Osmolality Calculated 301 mOsm/kg (285-295); Phosphorus 3.8 mg/dL (2.5-4.5); Potassium 3.6 mmol/L (3.5-5.1); Sodium 142 mmol/L (136-145); Total Bilirubin 0.4 mg/dL (0.15-1.2); Total Protein 4.6 g/dL (6.6-8.7)
[2020-01-21 04:41] LABS: Lactic Sepsis W/Reflex 2.1 mmol/L (0.5-2.2)
[2020-01-21 05:58] LABS: Reflex Lactate Order REFLEX LACTIC ORDERD
[2020-01-21 06:16] LABS: Glucose Point of Care 148 mg/dL (70-110)
[2020-01-21 07:28] LABS: Lactic Acid level (Lactate) 1.9 mmol/L (0.5-2.2)
[2020-01-21] MEDS: albuterol 8 gm MDI 2 PUFF INHALATION ×2 (09:05→14:25)
[2020-01-21] MEDS: metoprolol tartrate 25 mg Tablet 12.5 MG PO (09:08)
[2020-01-21] MEDS: finasteride 5 mg Tablet PO (09:09)
[2020-01-21] MEDS: famotidine 20 mg Tablet PO ×2 (09:09→17:20)
[2020-01-21] MEDS: ascorbic acid 500 mg Tablet PO (09:09)
[2020-01-21] MEDS: zinc gluconate 50 mg Tablet PO (09:09)
[2020-01-21] MEDS: lisinopril 20 mg Tablet PO (09:09)
[2020-01-21] MEDS: benzonatate 100 mg Capsule PO ×3 (09:10→22:09)
[2020-01-21] MEDS: azithromycin 250 mg Tablet PO (09:15)
--- NOTE | 2020-01-21 10:11 | PC.SOCIAL ---
IMM update Pg. 2 of IMM updated and reviewed with patient over the phone, who verbalized understanding. Copy provided to nursing to leave at bedside.
[2020-01-21 10:50] LABS: Glucose Point of Care 174 mg/dL (70-110)
--- NOTE | 2020-01-21 13:51 | PM.PN ---
Subjective Subjective: Interval history: This morning, patient remains afebrile, his counts have improved, will antibiotics and remdesivir was stopped, he has no particular complaints, he is awaiting out of bed [facility] Vitals/I&O/Wt Last Vital Signs Temp 98.3 F 01/21/20 11:31 Pulse 57 L 01/21/20 11:31 Resp 18 01/21/20 11:31 BP 142/79 01/21/20 11:31 Pulse Ox 92 01/21/20 11:31 01/20/20 01/21/20 01/21/20 22:59 06:59 14:59 Intake Total 200 / 2120 1093.25 / 3213.25 480 / 480 Output Total 650 / 1050 575 / 1625 Balance -450 / 1070 518.25 / 1588.25 480 / 480 Physical Exam Const: COMMON NORMALS: no acute distress and patient oriented x3 HENMT: COMMON NORMALS: normocephalic HEAD & SCALP: normocephalic Neck/C-Spine: COMMON NORMALS: no JVD Resp: COMMON NORMALS: normal respiratory effort, No retractions, No use of accessory muscles and clear to auscultation bilaterally AUSCULTATION: clear to auscultation bilaterally Cardio: COMMON NORMALS: no JVD, regular rate, regular rhythm, S1 normal heart sound present and S2 normal heart sound present RATE: regular rate RHYTHM: regular rhythm HEART SOUNDS: S1 normal heart sound present and S2 normal heart sound present GI: COMMON NORMALS: Normal to inspection, nondistended, normoactive bowel sounds present, Soft to palpation, non-tender, No hepatosplenomegaly present, no masses and no bruits PALPATION: Yes Soft to palpation and Yes No hepatosplenomegaly present Extremity: COMMON NORMALS: capillary refill normal, no clubbing, cyanosis or edema, no calf tenderness and no pedal edema Neuro: COMMON NORMALS: patient oriented x3 Psych: COMMON NORMALS: mental status grossly normal Data : 01/21/20 03:54 01/21/20 03:54 Micro: Microbiology 01/18/20 21:20 Urine Culture - Final Urine,Voided 01/18/20 15:20 Gram Stain - Final Sputum - Expectorated Sputum Sputum Culture - Final A&P Assessment and plan (1) Sepsis: Status: Acute Qualifiers: Sepsis acute organ dysfunction status: without acute organ dysfunction Sepsis type: sepsis due to unspecified organism Qualified Code(s): A41.9 - Sepsis, unspecified organism (2) Gall bladder stones: Status: Acute (3) Hypoxia: Status: Acute (4) Thickening of wall of gallbladder: Status: Acute (5) Fever: Status: Acute (6) Pneumonia due to COVID-19 virus: Status: Acute (7) Acute respiratory failure with hypoxia: Status: Acute (8) Secondary bacterial pneumonia: Status: Acute (9) Neutropenia: Status: Acute Additional A&P Information Anemia, thrombocytopenia, absolute neutropenia -Anemia improved 9.6, platelet count 92, absolute neutrophil count 1.16 -Hold Eliquis -Status post 1 unit PRBC -Neupogen given -Discontinue vancomycin, Primaxin as this can cause bone marrow suppression -Discontinued remdesivir due to bone marrow suppression -LDH high at 292, haptoglobin 453, 0 band neutrophils, 0 atypical lymphocytes -I am concerned that patient is either having bone marrow suppression from antibiotics, and or remdesivir and or COVID-19 and or Hinkle transformation (given fevers, chills, elevated white count), or some component of hemolytic anemia -Dr. Plaza agrees with above plan, recommends transfer to [facility] -Patient has been accepted at [facility], awaiting bed, this could take some time, will call around to other hospitals Sepsis Likely secondary to COVID-19 pneumonia and secondary bacterial pneumonia, infectious versus noninfectious fever, sepsis criteria met with fever tachycardia, leukocytosis Leukocytosis improved to 23.4 Discontinue vancomycin and Primaxin Continue azithromycin C. difficile negative Follow urine cultures, blood cultures but so far negative Peripheral smear pending HIV, hepatitis serology negative, influenza negative CT chest shows bilateral patchy infiltrates, with consolidation Rapid Covid antigen positive, has a history of Covid pneumonia Currently is on 4 L nasal cannula, tells me is on roughly 2 L at home Continue on remdesivir and Decadron for COVID-19, after discussing with infectious disease, possibly has not cleared COVID-19 pneumonia, doing better since remdesivir Decadron started, but remdesivir was stopped due to bone marrow suppression HIDA scan no evidence of acute or chronic cholecystitis Chemotherapeutic agent still on hold Ordered repeat blood cultures, CMV, MRSA, respiratory panel, repeat urine cultures, C. difficile, enterocyte panel, PCP PCR, histoplasma galactomannan antigen urine Chronic hypoxic respiratory failure without acute exacerbation Currently requiring 4 to 5 L at baseline since his Covid pneumonia Start on Advair, Spiriva. Start on vitamin C, zinc. Decadron for now Remdesivir stopped CLL: Follows up with Dr. Plaza, kindly see their notes for further details, chemotherapeutic agents on hold He was not able to follow-up with Dr. Plaza this month Received Neupogen on this admission Dr. Plaza has been updated Type 2 diabetes: Carb consistent diet. Sliding scale at moderate dose. Paroxysmal A. fib: Rate controlled at present. Continue home dose of metoprolol. Continue with Eliquis. Recent diarrhea after starting Levaquin, check C. difficile panel DNR/DNI goals of care discussed with the patient Currently GI soft diet DVT prophylaxis: Eliquis is on hold due to anemia, thrombocytopenia Plan: Continue to monitor fevers, get up out of bed, follow cultures, await bed at [facility] Attestations Medical Necessity Statement*: Patient requires hospitalization for anemia, thrombocytopenia, Neutropenia, Sepsis Coding Level of Care Code Acute Four Slide Operator for [facility] Fwd Diagnoses Sepsis A41.9 Sepsis acute organ dysfunction status: without acute organ dysfunction Sepsis type: sepsis due to unspecified organism Gall bladder stones K80.20 Hypoxia R09.02 Thickening of wall of gallbladder K82.8 Fever R50.9 Pneumonia due to COVID-19 virus U07.1; J12.89 Acute respiratory failure with hypoxia J96.01 Secondary bacterial pneumonia J15.9 Neutropenia D70.9
[2020-01-21] MEDS: metoprolol tartrate 50 mg Tablet 12.5 MG PO (17:20)
[2020-01-21 17:38] LABS: Glucose Point of Care 158 mg/dL (70-110)
--- NOTE | 2020-01-21 19:15 | PC.NURSE ---
Report to Chiara VILLAGOMEZ Patient had an over all good day. Patient's family brought food it is in the window but there is fresh fruit in there that patient can not have right now. Patient was asked not to eat it right now.
[2020-01-21 21:19] LABS: Glucose Point of Care 147 mg/dL (70-110)
[2020-01-21] MEDS: dexamethasone 4 mg/mL INJ 6 MG IVP (22:09)
[2020-01-22] VITALS (8 sets, daily range): BP systolic 118–135; BP diastolic 63–85; PULSE 49–71; RESP 18–20; TEMP 36.4–36.5; O2SAT 91–95
[2020-01-22] MEDS: sodium chloride 0.9% 1,000 ML 75 ML IV (03:29)
[2020-01-22 03:30] LABS: Basophils # 0.2 10^3/uL (0.0-0.1); Basophils % 0.6 %; Hematocrit 30.4 % (42.0-52.0); Hemoglobin 9.1 g/dL (11.7-16.6); Lymphocytes # 24.8 10^3/uL (0.8-4.8); Lymphocytes % 94.5 %; Mean Corpuscular HGB Conc 29.9 g/dL (30.0-36.0); Mean Corpuscular Hemoglobin 27.2 pg (28.0-34.0); Mean Platelet Volume 11.8 fL (7.4-10.4); Monocytes % 0.1 %; Neutrophils # 1.06 10^3/uL (1.8-7.7); Nucleated Red Blood Cells % 0 %; Platelet Count 97 10^3/cmm (130-400); Red Blood Count 3.34 10^6/uL (4.1-5.3); Red Cell Distribution Width 15.9 % (12.1-15.1); White Blood Count 26.2 10^3/uL (4.0-10.0)
[2020-01-22 03:55] LABS: Alanine Aminotransferase 182 U/L (0-41); Albumin Level 2.3 g/dL (3.5-5.2); Alkaline Phosphatase 171 IU/L (40-130); Anion Gap 12.5 (5-19); Aspartate Amino Transferase 148 U/L (0-40); Blood Urea Nitrogen 18 mg/dL (8-23); C Reactive Protein 27.7 mg/L (0.0-4.9); Calcium 7.8 mg/dL (8.5-10.5); Carbon Dioxide 27 mmol/L (22-29); Chloride 103 mmol/L (98-107); Globulin 2.8 g/dL (1.3-4.6); Glomerular Filtration Rate 133.6 mL/min (90-130); Glucose 190 mg/dL (65-115); Magnesium 1.8 mg/dL (1.7-2.3); Osmolality Calculated 295 mOsm/kg (285-295); Potassium 3.5 mmol/L (3.5-5.1); Sodium 139 mmol/L (136-145); Total Bilirubin 0.5 mg/dL (0.15-1.2); Total Protein 5.1 g/dL (6.6-8.7)
[2020-01-22 03:56] LABS: Lactic Sepsis W/Reflex 2.4 mmol/L (0.5-2.2)
[2020-01-22 05:14] LABS: Reflex Lactate Order REFLEX LACTIC ORDERD
[2020-01-22 05:36] LABS: Procalcitonin 0.51 ng/mL (0-0.5)
--- NOTE | 2020-01-22 05:44 | PC.NURSE ---
Spoke with HERNANDO Becerril from [facility] transfer line. She requested an update. Update given per request. Placement is still pending for a bed at this time.
[2020-01-22 05:50] LABS: Creatine Phosphokinase 14 U/L (39-308)
[2020-01-22 06:10] LABS: Ferritin 2767 ng/mL (30-400)
[2020-01-22 06:18] LABS: Slide Review Slide Review Perform
[2020-01-22 06:52] LABS: Glucose Point of Care 139 mg/dL (70-110)
[2020-01-22 07:39] LABS: INR 1.19 (0.8-1.2)
[2020-01-22 07:50] LABS: Lactic Acid level (Lactate) 1.8 mmol/L (0.5-2.2)
[2020-01-22 08:06] LABS: CMV DNA By PCR <200 IU/mL; CMV DNA, QN PCR <2.30 Log IU/mL; SOURCE PLASMA
[2020-01-22] MEDS: albuterol 8 gm MDI 2 PUFF INHALATION ×2 (08:42→13:55)
[2020-01-22] MEDS: finasteride 5 mg Tablet PO (08:57)
[2020-01-22] MEDS: lisinopril 20 mg Tablet PO (08:58)
[2020-01-22] MEDS: famotidine 20 mg Tablet PO ×2 (08:58→17:02)
[2020-01-22] MEDS: azithromycin 250 mg Tablet PO (08:58)
[2020-01-22] MEDS: metoprolol tartrate 50 mg Tablet 12.5 MG PO (08:58)
[2020-01-22] MEDS: benzonatate 100 mg Capsule PO ×3 (08:58→21:20)
[2020-01-22] MEDS: zinc gluconate 50 mg Tablet PO (08:58)
[2020-01-22] MEDS: ascorbic acid 500 mg Tablet PO (08:58)
[2020-01-22 10:55] LABS: Glucose Point of Care 158 mg/dL (70-110)
--- NOTE | 2020-01-22 12:58 | PM.PN ---
Subjective Subjective: Interval history: Patient is feeling well this morning, no fevers, no chills, no cough, no abdominal pain, no dysuria, no hematuria, has remained afebrile for the last 72 hours, is doing quite well Vitals/I&O/Wt Last Vital Signs Temp 97.6 F 01/22/20 08:00 Pulse 71 01/22/20 08:44 Resp 20 H 01/22/20 08:44 BP 135/85 01/22/20 08:00 Pulse Ox 92 01/22/20 08:44 01/21/20 01/22/20 01/22/20 22:59 06:59 14:59 Intake Total 1300 / 2020 760 / 2780 Output Total 1200 / 1450 2200 / 3650 600 / 600 Balance 100 / 570 -1440 / -870 -600 / -600 Physical Exam Const: COMMON NORMALS: no acute distress and patient oriented x3 HENMT: COMMON NORMALS: normocephalic HEAD & SCALP: normocephalic Neck/C-Spine: COMMON NORMALS: no JVD Resp: COMMON NORMALS: normal respiratory effort, No retractions, No use of accessory muscles and clear to auscultation bilaterally AUSCULTATION: clear to auscultation bilaterally Cardio: COMMON NORMALS: no JVD, regular rate, regular rhythm, S1 normal heart sound present and S2 normal heart sound present RATE: regular rate RHYTHM: regular rhythm HEART SOUNDS: S1 normal heart sound present and S2 normal heart sound present GI: COMMON NORMALS: Normal to inspection, nondistended, normoactive bowel sounds present, Soft to palpation, non-tender, No hepatosplenomegaly present, no masses and no bruits PALPATION: Yes Soft to palpation and Yes No hepatosplenomegaly present Extremity: COMMON NORMALS: capillary refill normal, no clubbing, cyanosis or edema, no calf tenderness and no pedal edema Neuro: COMMON NORMALS: patient oriented x3 Psych: COMMON NORMALS: mental status grossly normal Data : 01/22/20 03:18 01/22/20 03:18 Micro: Microbiology 01/16/20 18:41 Blood Culture - Final Blood NO GROWTH AFTER 5 DAYS 01/16/20 18:40 Blood Culture - Final Blood NO GROWTH AFTER 5 DAYS 01/18/20 21:20 Urine Culture - Final Urine,Voided A&P Assessment and plan (1) Sepsis: Status: Acute Qualifiers: Sepsis acute organ dysfunction status: without acute organ dysfunction Sepsis type: sepsis due to unspecified organism Qualified Code(s): A41.9 - Sepsis, unspecified organism (2) Gall bladder stones: Status: Acute (3) Hypoxia: Status: Acute (4) Thickening of wall of gallbladder: Status: Acute (5) Fever: Status: Acute (6) Pneumonia due to COVID-19 virus: Status: Acute (7) Acute respiratory failure with hypoxia: Status: Acute (8) Secondary bacterial pneumonia: Status: Acute (9) Neutropenia: Status: Acute Additional A&P Information Anemia, thrombocytopenia, absolute neutropenia -Anemia improved 9.1, platelet count 97, absolute neutrophil count 1.06 -Hold Eliquis -Status post 1 unit PRBC -Neupogen given -Discontinue vancomycin, Primaxin as this can cause bone marrow suppression -Discontinued remdesivir due to bone marrow suppression -LDH high at 292, haptoglobin 453, 0 band neutrophils, 0 atypical lymphocytes -I am concerned that patient is either having bone marrow suppression from antibiotics, and or remdesivir and or COVID-19 and or Hinkle transformation (given fevers, chills, elevated white count), or some component of hemolytic anemia -As patient is doing well for the last 72 hours to remain afebrile, his counts are improving, I spoke to Dr. Plaza, will see how he does over the next 24 hours, get up out of bed, he does well we will likely discharge him home tomorrow, likely does not require to go up to [facility] at this time as he is improving -Dr. Plaza agrees with above plan -Patient has been accepted at [facility], awaiting bed, but will cancel as he is clinically improving Sepsis Likely secondary to COVID-19 pneumonia and secondary bacterial pneumonia, infectious versus noninfectious fever, sepsis criteria met with fever tachycardia, leukocytosis Leukocytosis improved to 23.4 Discontinue vancomycin and Primaxin Continue azithromycin C. difficile negative Follow urine cultures, blood cultures but so far negative Peripheral smear pending HIV, hepatitis serology negative, influenza negative CT chest shows bilateral patchy infiltrates, with consolidation Rapid Covid antigen positive, has a history of Covid pneumonia Currently is on 4 L nasal cannula, tells me is on roughly 2 L at home Continue on remdesivir and Decadron for COVID-19, after discussing with infectious disease, possibly has not cleared COVID-19 pneumonia, doing better since remdesivir Decadron started, but remdesivir was stopped due to bone marrow suppression HIDA scan no evidence of acute or chronic cholecystitis Chemotherapeutic agent still on hold Ordered repeat blood cultures, CMV, MRSA, respiratory panel, repeat urine cultures, C. difficile, enterocyte panel, PCP PCR, histoplasma galactomannan antigen urine Chronic hypoxic respiratory failure without acute exacerbation Currently requiring 4 to 5 L at baseline since his Covid pneumonia Start on Advair, Spiriva. Start on vitamin C, zinc. Decadron for now Remdesivir stopped CLL: Follows up with Dr. Plaza, kindly see their notes for further details, chemotherapeutic agents on hold He was not able to follow-up with Dr. Plaza this month Received Neupogen on this admission Dr. Plaza has been updated Type 2 diabetes: Carb consistent diet. Sliding scale at moderate dose. Paroxysmal A. fib: Rate controlled at present. Continue home dose of metoprolol. Continue with Eliquis. Recent diarrhea after starting Levaquin, check C. difficile panel DNR/DNI goals of care discussed with the patient Currently GI soft diet DVT prophylaxis: Eliquis is on hold due to anemia, thrombocytopenia Plan: Continue to monitor fevers, get up out of bed, follow cultures, likely discharge the next 24 hours Attestations Medical Necessity Statement*: Course hospitalization for anemia, thrombocytopenia, COVID-19 pneumonia, bone marrow suppression Coding Level of Care Code Acute Neurology Physician Assistant for [facility] Fwd Diagnoses Sepsis A41.9 Sepsis acute organ dysfunction status: without acute organ dysfunction Sepsis type: sepsis due to unspecified organism Gall bladder stones K80.20 Hypoxia R09.02 Thickening of wall of gallbladder K82.8 Fever R50.9 Pneumonia due to COVID-19 virus U07.1; J12.89 Acute respiratory failure with hypoxia J96.01 Secondary bacterial pneumonia J15.9 Neutropenia D70.9
[2020-01-22] MEDS: metoprolol tartrate 25 mg Tablet 12.5 MG PO (17:02)
[2020-01-22 17:11] LABS: Glucose Point of Care 185 mg/dL (70-110)
[2020-01-22 20:10] LABS: Glucose Point of Care 175 mg/dL (70-110)
[2020-01-22] MEDS: dexamethasone 4 mg/mL INJ 6 MG IVP (21:21)
[2020-01-23] VITALS: BP 123/76; PULSE 56; RESP 20; TEMP 36.4; O2SAT 95
[2020-01-23 04:00] VITALS: BP 135/83; PULSE 51; RESP 20; TEMP 36.6; O2SAT 95
[2020-01-23 05:00] LABS: Basophils # 0.2 10^3/uL (0.0-0.1); Basophils % 0.6 %; Hematocrit 31.2 % (42.0-52.0); Hemoglobin 9.3 g/dL (11.7-16.6); Lymphocytes # 24.4 10^3/uL (0.8-4.8); Lymphocytes % 95.9 %; Mean Corpuscular HGB Conc 29.8 g/dL (30.0-36.0); Mean Corpuscular Hemoglobin 27.4 pg (28.0-34.0); Mean Corpuscular Volume 91.8 fL (80-94); Mean Platelet Volume 12.8 fL (7.4-10.4); Monocytes # 0.1 10^3/uL (0.2-0.9); Monocytes % 0.2 %; Neutrophils % 2.6 %; Nucleated Red Blood Cells % 0 %; Platelet Count 109 10^3/cmm (130-400); White Blood Count 25.4 10^3/uL (4.0-10.0)
[2020-01-23 05:14] LABS: INR 1.15 (0.8-1.2)
[2020-01-23 05:24] LABS: Procalcitonin 0.25 ng/mL (0-0.5)
[2020-01-23 05:31] LABS: Alanine Aminotransferase 147 U/L (0-41); Albumin Level 2.4 g/dL (3.5-5.2); Alkaline Phosphatase 153 IU/L (40-130); Anion Gap 11.1 (5-19); Aspartate Amino Transferase 68 U/L (0-40); Blood Urea Nitrogen 18 mg/dL (8-23); C Reactive Protein 15.5 mg/L (0.0-4.9); Calcium 7.9 mg/dL (8.5-10.5); Carbon Dioxide 30 mmol/L (22-29); Chloride 104 mmol/L (98-107); Globulin 2.4 g/dL (1.3-4.6); Glomerular Filtration Rate 133.6 mL/min (90-130); Glucose 172 mg/dL (65-115); Magnesium 1.9 mg/dL (1.7-2.3); Osmolality Calculated 298 mOsm/kg (285-295); Phosphorus 3.9 mg/dL (2.5-4.5); Potassium 4.1 mmol/L (3.5-5.1); Sodium 141 mmol/L (136-145); Total Bilirubin 0.6 mg/dL (0.15-1.2); Total Protein 4.8 g/dL (6.6-8.7)
[2020-01-23 05:39] LABS: Creatine Phosphokinase 10 U/L (39-308)
[2020-01-23 05:53] LABS: Ferritin 2032 ng/mL (30-400)
[2020-01-23 06:18] LABS: Neutrophils # 0.64 10^3/uL (1.8-7.7); Slide Review Slide Review Perform
[2020-01-23 08:00] VITALS: BP 151/82; PULSE 52; RESP 18; TEMP 36.4; O2SAT 96
[2020-01-23] MEDS: levoFLOXacin 750 mg Tablet PO (08:45)
[2020-01-23] MEDS: lisinopril 20 mg Tablet PO (08:46)
[2020-01-23] MEDS: finasteride 5 mg Tablet PO (08:46)
[2020-01-23] MEDS: ascorbic acid 500 mg Tablet PO (08:46)
[2020-01-23] MEDS: famotidine 20 mg Tablet PO (08:46)
[2020-01-23] MEDS: benzonatate 100 mg Capsule PO (08:46)
[2020-01-23] MEDS: zinc gluconate 50 mg Tablet PO (08:46)
[2020-01-23] MEDS: azithromycin 250 mg Tablet PO (08:47)
[2020-01-23] MEDS: albuterol 8 gm MDI 2 PUFF INHALATION (09:08)
[2020-01-23 09:19] VITALS: PULSE 64; RESP 16; O2SAT 91
--- NOTE | 2020-01-23 09:28 | P.DS_ITS ---
Discharge Providers Date of Admission: 01/16/20 22:36 Date of Discharge: January 23, 2020 Attending Provider at Admission: Nuvia Álvarez MD Attending Provider at Discharge: Manuel Wagner MD Primary Care Provider: GALINA Garcia Diagnoses at Discharge Discharge Diagnosis (1) Sepsis: Status: Acute Qualifiers: Sepsis acute organ dysfunction status: without acute organ dysfunction Sepsis type: sepsis due to unspecified organism Qualified Code(s): A41.9 - Sepsis, unspecified organism (2) Gall bladder stones: Status: Acute (3) Hypoxia: Status: Acute (4) Thickening of wall of gallbladder: Status: Acute (5) Fever: Status: Acute (6) Pneumonia due to COVID-19 virus: Status: Acute (7) Acute respiratory failure with hypoxia: Status: Acute (8) Secondary bacterial pneumonia: Status: Acute (9) Neutropenia: Status: Acute Reason for Visit Reason for Visit: sob Hospital Course Hospital Course This is a 69-year-old male with a past medical history of , chronic lymphocytic leukemia/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/04/2016( bendamustine/Rituxan was held secondary to COVID-19 pneumonia which was diagnosed on 12/06/2019), recently discharged for COVID-19 pneumonia treated with remdesivir Decadron, broad-spectrum antibiotics for neutropenia, required Neupogen, discharged on Levaquin had issues with thrombocytopenia with concurrent use of Eliquis, presents to [facility] due to complaints of fevers Patient was admitted to [facility] for febrile episodes, admitted to the general medical floors, Covid unit, started on broad-spectrum antibiotic therapy, monitored. All patient's cultures were unremarkable, blood cultures unremarkable, sputum cultures unremarkable, urine cultures unremarkable, C. difficile negative, MRSA negative, urine bacterial antigens negative, stool studies negative, CMV unremarkable, influenza negative, parainfluenza negative, galactomannan pending, SARS rapid positive on previous admission all cultures were negative. Patient did have transaminitis, elevated alk phos, right upper quadrant ultrasound was negative for cholecystitis, HIDA scan no evidence of acute or chronic cholecystitis, gallbladder ejection fraction 90%. CT scan of the abdomen had no acute findings. CT of the chest showed bilateral groundglass infiltrates, and areas of consolidation. Thus my thinking at this time was patient could have healthcare associated pneumonia. We continued broad-spectrum antibiotics, he required up to 5 L nasal cannula, no shortness of breath complaints, no cough complaints, his lungs sounded clear throughout his hospital admission. However patient continued to have high-grade fevers, despite being on broad-spectrum antibiotics for 72 hours. After discussion with infectious disease, the thought was that patient could have continued COVID-19 infection, thus remdesivir and Decadron were started. For the next 48 hours, patient remained asymptomatic, and he remained afebrile for the next 48 hours. However patient started to develop anemia, hemoglobin as 7.7, absolute neutropenia 530, thrombocytopenia as low as 90,000. After discussion with infectious disease and Dr. Plaza, the thought was patient could be suffering bone marrow suppression from remdesivir and/or COVID-19 and or antibiotics. On his last admission, he also suffered absolute neutropenia, with thrombocytopenia requiring Neupogen when he was on remdesivir. Thus broad-spectrum antibiotics were deescalated to azithromycin and Levaquin. Remdesivir was stopped. Decadron was stopped. He received 1 unit PRBC, received Neupogen x2. And after discussion with Dr. Plaza, it was felt that patient would be better served at [facility] as he could be suffering COVID-19 related bone marrow suppression and or bone marrow suppression related to remdesivir and/or possible Hinkle transformation associated with his CLL. Thus the process was started to transfer to [facility]. patient remained afebrile for the next 48 hours, his counts did recover, hemoglobin was 9.3, platelet count 109, absolute neutrophil count as high as 1060. Thus test patient was doing well, his counts had recovered, we cancel transfer to [facility]. On the morning of 01/23/2020, patient's absolute neutrophil count did drop to 640, he was relatively asymptomatic, on 3 L, afebrile, doing well, had no particular complaints. After discussion with Dr. Plaza, decision was to keep him inpatient, give him a dose of Neupogen, monitor his absolute neutrophil count. However patient was adamant about going home. I had extensive discussion with patient, that it is our worry that he is suffering bone marrow suppression related to remdesivir and/or COVID- 19, it is hard to determine the exact etiology at this point, he requires closer monitoring, he has a high risk of infection, high risk of morbidity and mortality, high risk of readmission. However patient remained adamant about going home, advised of the risks, voiced understanding, all questions answered, still wants to go home. I have discharged the patient on Levaquin for 7 days, 3 remaining days of azithromycin, with a close follow-up with Dr. Plaza in 1 week, repeat CBC in 1 week. Patient was advised to continually socially isolate, hand wash, face mask, monitor for Covid related complications. Given his thrombocytopenia and anemia on discharge of 9.3, 109, I have advised him to hold Eliquis until seen by hematology 1 week. Patient was advised that if he were to have recurrent fevers, chills, fatigue, malaise come back to the emergency room. CT scan of the abdomen did show markedly enlarged heterogeneous enhancing prostate with enlarged iliac chain lymph node. His urine cultures have remained unremarkable, denies any dysuria, denies any back pain could he possibly have prostatitis? Certainly possible, I will have patient follow-up with urology Physical Exam Const: COMMON NORMALS: no acute distress and patient oriented x3 HENMT: COMMON NORMALS: normocephalic HEAD & SCALP: normocephalic Neck/C-Spine: COMMON NORMALS: no JVD Resp: COMMON NORMALS: normal respiratory effort, No retractions, No use of accessory muscles and clear to auscultation bilaterally AUSCULTATION: clear to auscultation bilaterally Cardio: COMMON NORMALS: no JVD, regular rate, regular rhythm, S1 normal heart sound present and S2 normal heart sound present RATE: regular rate RHYTHM: regular rhythm HEART SOUNDS: S1 normal heart sound present and S2 normal heart sound present GI: COMMON NORMALS: Normal to inspection, nondistended, normoactive bowel sounds present, Soft to palpation, non-tender, No hepatosplenomegaly present, no masses and no bruits PALPATION: Yes Soft to palpation and Yes No hepatosplenomegaly present Extremity: COMMON NORMALS: capillary refill normal, no clubbing, cyanosis or edema, no calf tenderness and no pedal edema Neuro: COMMON NORMALS: patient oriented x3 Psych: COMMON NORMALS: mental status grossly normal Discharge Data Data Completed and Pending: Completed Studies During Hospitalization Category Date Time Status CT abdomen pelvis w con* [id number] Rout ine Cat Scan 01/17/20 10:[address] chest wo con 7 [id number] Stat Cat Scan 01/17/20 00:42 Completed XR chest 1V michael ble [id number] Routine Exams 01/19/20 07:42 Completed XR chest 1V michael ble [id number] Urgent Exams 01/16/20 18:11 Completed NM hepatobiliary w phar* [id number] Rout ine Nuc Med 01/18/20 07:00 Completed US gall bladder 7 [id number] Urgent Ultrasound 01/16/20 20:25 Completed Pending at discharge Category Date Time Status Aspergillus AG,EI A,Serum Stat Lab 01/18/20 15:15 Received Blood Culture Sta t Lab 01/18/20 15:22 Results C Reactive Protei n AM LABS Lab 01/24/20 04:00 Ordered Complete Blood Co unt w/Auto AM LABS Lab 01/24/20 04:00 Ordered Comprehensive Met abolic Panel AM LA BS Lab 01/24/20 04:00 Ordered Creatine Phosphok inase AM LABS Lab 01/24/20 04:00 Ordered Ferritin AM LABS Lab 01/24/20 04:00 Ordered Histoplasma Antib deandra Stat Lab 01/18/20 15:15 Received Lactic Sepsis W/R eflex AM LABS Lab 01/24/20 04:00 Ordered Magnesium AM LABS Lab 01/24/20 04:00 Ordered Miscellaneous Lotus t Routine Lab 01/18/20 15:15 Received Miscellaneous Lotus t Routine Lab 01/18/20 15:15 Received Phosphorus AM LAB S Lab 01/24/20 04:00 Ordered Procalcitonin AM LABS Lab 01/24/20 04:00 Ordered Prothrombin Time INR AM LABS Lab 01/24/20 04:00 Ordered Viral Respiratory ,Rapid Cultur Stat Lab 01/18/20 15:20 Received Labs from last 24 hours 01/23/20 01/23/20 01/23/20 04:07 04:07 04:07 WBC RBC Hgb Hct MCV MCH MCHC RDW Plt Count MPV Neut % (Auto) Lymph % (Auto) [place] % (Auto) Eos % (Auto) Baso % (Auto) Neut # (Auto) Lymph # (Auto) [place] # (Auto) Eos # (Auto) Baso # (Auto) Nucleated RBC % (a uto) Nucleated RBCs # PT 15.10 H INR 1.15 Sodium Potassium Chloride Carbon Dioxide Anion Gap BUN Creatinine GFR Calculation Glucose POC Glucose Calculated Osmolal ity Lactic Acid 2.0 Calcium Phosphorus Magnesium Ferritin 2032 H Total Bilirubin AST ALT Alkaline Phosphata se Creatine Kinase 10 L C-Reactive Protein Total Protein Albumin Globulin Procalcitonin 0.25 RSV Nasal Swab RSV Nasal Swab Int Cntl Adenovirus (PCR) Human Metapneumovi r PCR Influenza A (RT-PC R) Influenza A (H1) P CR Influenza A (H3) P CR Influenza B (RT-PC R) Parainfluenzae Typ e 1 Parainfluenzae Typ e 2 Parainfluenzae Typ e 3 RSV Ab Comment Rhinovirus (PCR) 01/23/20 01/23/20 01/22/20 04:07 04:07 20:04 WBC 25.4 H RBC 3.40 L Hgb 9.3 L Hct 31.2 L MCV 91.8 MCH 27.4 L MCHC 29.8 L RDW 16.0 H Plt Count 109 L MPV 12.8 H Neut % (Auto) 2.6 Lymph % (Auto) 95.9 [place] % (Auto) 0.2 Eos % (Auto) 0.0 Baso % (Auto) 0.6 Neut # (Auto) 0.64 L* Lymph # (Auto) 24.4 H [place] # (Auto) 0.1 L Eos # (Auto) 0.0 Baso # (Auto) 0.2 H Nucleated RBC % (a uto) 0 Nucleated RBCs # 0.0 PT INR Sodium 141 Potassium 4.1 Chloride 104 Carbon Dioxide 30 H Anion Gap 11.1 BUN 18 Creatinine 0.6 L GFR Calculation 133.6 H Glucose 172 H POC Glucose 175 Calculated Osmolal ity 298 H Lactic Acid Calcium 7.9 L Phosphorus 3.9 Magnesium 1.9 Ferritin Total Bilirubin 0.6 AST 68 H ALT 147 H Alkaline Phosphata se 153 H Creatine Kinase C-Reactive Protein 15.5 H Total Protein 4.8 L Albumin 2.4 L Globulin 2.4 Procalcitonin RSV Nasal Swab RSV Nasal Swab Int Cntl Adenovirus (PCR) Human Metapneumovi r PCR Influenza A (RT-PC R) Influenza A (H1) P CR Influenza A (H3) P CR Influenza B (RT-PC R) Parainfluenzae Typ e 1 Parainfluenzae Typ e 2 Parainfluenzae Typ e 3 RSV Ab Comment Rhinovirus (PCR) 01/22/20 01/22/20 01/18/20 16:54 10:34 16:20 WBC RBC Hgb Hct MCV MCH MCHC RDW Plt Count MPV Neut % (Auto) Lymph % (Auto) [place] % (Auto) Eos % (Auto) Baso % (Auto) Neut # (Auto) Lymph # (Auto) [place] # (Auto) Eos # (Auto) Baso # (Auto) Nucleated RBC % (a uto) Nucleated RBCs # PT INR Sodium Potassium Chloride Carbon Dioxide Anion Gap BUN Creatinine GFR Calculation Glucose POC Glucose 185 158 Calculated Osmolal ity Lactic Acid Calcium Phosphorus Magnesium Ferritin Total Bilirubin AST ALT Alkaline Phosphata se Creatine Kinase C-Reactive Protein Total Protein Albumin Globulin Procalcitonin RSV Nasal Swab Not Reportable RSV Nasal Swab Int Cntl Not Reportable Adenovirus (PCR) TNP Human Metapneumovi r PCR Not Reportable Influenza A (RT-PC R) Not Reportable Influenza A (H1) P CR Not Reportable Influenza A (H3) P CR Not Reportable Influenza B (RT-PC R) Not Reportable Parainfluenzae Typ e 1 Not Reportable Parainfluenzae Typ e 2 Not Reportable Parainfluenzae Typ e 3 Not Reportable RSV Ab Comment Not Reportable Rhinovirus (PCR) Not Reportable Vitals: Last Vital Signs Temp 97.6 F 01/23/20 08:00 Pulse 64 01/23/20 09:19 Resp 16 01/23/20 09:19 BP 151/82 01/23/20 08:00 Pulse Ox 91 01/23/20 09:19 Discharge Plan Discharge Patient Disposition: Home Condition: Stable Prescriptions: New Vitamin C 500 mg Tablet 500 mg PO DAILY 30 Days Qty: 30 RF: 0 azithromycin 250 mg Tablet 250 mg PO DAILY 3 Days Qty: 3 RF: 0 zinc gluconate 50 mg Tablet 50 mg PO DAILY 30 Days Qty: 30 RF: 0 levofloxacin 750 mg Tablet 750 mg PO DAILY@0600 7 Days Qty: 7 RF: 0 Continued albuterol sulfate 2.5 mg /3 mL (0.083 %) solution for nebulization 2.5 mg INHALATION Q4H PRN (Reason: shortness of breath or wheezing) Qty: 300 RF: 0 finasteride 5 mg tablet 5 mg PO DAILY Qty: 90 RF: 0 furosemide [Lasix] 20 mg tablet 20 mg PO DAILY Qty: 90 RF: 0 Hold Instructions: Low Blood pressure lisinopril 20 mg tablet 20 mg PO DAILY Qty: 90 RF: 0 Hold Instructions: Low Blood Pressure lovastatin 40 mg tablet 40 mg PO DAILY Qty: 90 RF: 0 Mucinex 1,200 mg tablet extended release 12hr 1,200 mg PO Q12H Qty: 60 RF: 0 famotidine 20 mg Tablet 20 mg PO BID Qty: 28 RF: 0 metoprolol tartrate 25 mg Tablet 12.5 mg PO BID Qty: 30 RF: 0 Held Eliquis 5 mg tablet 5 mg PO BID Qty: 60 RF: 3 Hold Instructions: Resume on 01/29/20. HOLD UNTIL SEEN BY HEMATOLOGY IN 1 WEEK Discontinued levofloxacin 750 mg tablet 750 mg PO DAILY 7 Days Qty: 7 RF: 0 Discharge Orders: Discharge Order (Routine); Ordered 01/23/20 Ordered By: Manuel Wagner Other Ambulatory Orders: Complete Blood Count w/Auto (Routine) Timeframe: 1 Week Location: Determined by Patient Ordered By: Manuel Wagner Referrals: [facility] ([facility]) [Outside] Rosanne Plaza MD [Staff Physician] - 4-7 days Discharge Diet: Regular Discharge Activity: Resume usual activity Patient Instructions: Neutropenia (DC) Activity Restrictions/Additional Instructions: -Please hydrate well -Monitor for fevers -If you have recurrent fevers, fatigue, malaise, shortness breath cough come back to the emergency room -Follow-up with Dr. Plaza in 1 week -Repeat CBC in 1 week -Hold Eliquis until seen by Dr. Plaza in 1 week Discharge Attestations Time Spent in Discharge Care*: less than 30 min Quality Metrics Clinical Quality Measures During this hospital stay, did patient experience: None Coding Level of Care Code Acute Knowledge Manager for [facility] Fwd Diagnoses Sepsis A41.9 Sepsis acute organ dysfunction status: without acute organ dysfunction Sepsis type: sepsis due to unspecified organism Gall bladder stones K80.20 Hypoxia R09.02 Thickening of wall of gallbladder K82.8 Fever R50.9 Pneumonia due to COVID-19 virus U07.1; J12.89 Acute respiratory failure with hypoxia J96.01 Secondary bacterial pneumonia J15.9 Neutropenia D70.9
--- NOTE | 2020-01-23 10:23 | PC.SOCIAL ---
IMM Update Pg. 2 of IMM updated and reviewed with patient over the phone who verbalized understanding.
[2020-01-23 11:38] LABS: Glucose Point of Care 113 mg/dL (70-110)
[2020-01-23 11:38] LABS: Glucose Point of Care 137 mg/dL (70-110)
[2020-01-23 11:43] VITALS: BP 124/73; PULSE 60; RESP 18; TEMP 36.4; O2SAT 92
[2020-01-23 15:01] VITALS: BP 124/73; PULSE 60; RESP 18; TEMP 36.4; O2SAT 92
--- NOTE | 2020-01-24 11:58 | PC.SOCIAL ---
Spoke with the patient on the phone about the discharge information they received spoke about signs and symptoms to watch for such as; blue lips or face, fever of 104 or higher, trouble breathing or catching breath, chest pain lasting longer than 5 minute, confusion or trouble waking up. We also spoke about ways to improve the immune system, these included; eating and drinking well, eating fruits and vegetables, lean meat, low fat dairy products, keeping up with immunizations such as flu/pneumonia/shingles shots, going to all appointments and follow ups, lessening and stress. We also spoke about ways to stop or prevent the spread of the COVID 19. These included; social distancing at all times, washing hands longer than 20 seconds with a good lather, sanitizing surfaces in home and in vehicle, masking up when possible and washing any cloth masks after use and allow them to dry completely before next use, sneezing or coughing into arm, restricting company or going out in public. We spoke a little about the benefits of plasma donation. Patient stated that he has cancer and would not be able to donate. 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 Dr. Chowdary 02/13/2020 @ 1:30 PM, Dr. Villanueva 01/29/2020 @ 11:30 AM. I am currently waiting on [facility] office to set up apt for patient to be seen. Patient was informed if they do not call him today to give them a call by end of this week.
[2020-01-24 19:08] LABS: Aspergillus AG,EIA,Serum NOT DETECTED; Aspergillus Galactomannan Inde <0.50
== END 2020-01-23 14:50 | disposition home or self-care (01) | DRG 871 ==
LOC: ER 17:06 → MEDSURG 23:12
PROVIDERS: Student in an Organized Health Care Education/Training Program; Admitting Provider Internal Medicine; Emergency Provider Family Medicine; PCP Nurse Practitioner; Visit Provider Family Medicine
DX: A41.9 Sepsis, unspecified organism (principal); U07.1 COVID-19; J12.89 Other viral pneumonia; J15.9 Unspecified bacterial pneumonia; C91.10 Chronic lymphocytic leukemia of B-cell type not having achieved remission; J96.11 Chronic respiratory failure with hypoxia; Z79.899 Other long term (current) drug therapy; N40.1 Benign prostatic hyperplasia with lower urinary tract symptoms; R39.11 Hesitancy of micturition; J44.9 Chronic obstructive pulmonary disease, unspecified; E78.5 Hyperlipidemia, unspecified; I10 Essential (primary) hypertension; G47.33 Obstructive sleep apnea (adult) (pediatric); I48.0 Paroxysmal atrial fibrillation; E11.9 Type 2 diabetes mellitus without complications; K80.80 Other cholelithiasis without obstruction; Z66 Do not resuscitate; R19.7 Diarrhea, unspecified; D70.1 Agranulocytosis secondary to cancer chemotherapy; T50.995A Adverse effect of other drugs, medicaments and biological substances, initial encounter; D64.9 Anemia, unspecified; D69.6 Thrombocytopenia, unspecified; Z79.51 Long term (current) use of inhaled steroids
CPT/HCPCS: 12345; 36415; 36416; 36430; 36600; 71045; 71250; 74177; 76705; 78227; 80051; 80053; 80202; 80500; 81001; 82274; 82330; 82550; 82728; 82784; 82805; 82962; 83010; 83540; 83550; 83605; 83615; 83630; 83735; 84100; 84145; 84443; 85007; 85025; 85610; 86140; 86403; 86698; 86850; 86900; 86920; 87040; 87070; 87086; 87205; 87281; 87305; 87426; 87449; 87493; 87496; 87506; 87641; 87799; 87804; 93005; 94640; 96372; 96375; 97165; 99282; A9537; J0456; J0743; J1100; J1442; J2543; J3370; J3535; J7030; J7050; P9016; Q0144; Q9967

== ENCOUNTER 2020-01-29 05:36 | Outpatient (RCR) | payer MEDICARE, OTHER, SELFPAY ==
--- NOTE | 2020-02-02 15:18 | ONC FU_ITS ---
[facility] Patient Note Patient: Lb Garcia Unit #: [id number]: 1950 Dictated By: Luis Angel JolleyDate of Visit: Jan 29, 2020 Onc MED Follow-Up/Prog Note Chief Complaint: elevated white blood cell CLL History of Present Illness: Mr. Garcia is a 69-year-old gentleman with a past history of elevated white blood count. He reports that he had been having low-grade fever since February 2016. He presented initially with night sweats and was diagnosed with pneumonia. His white blood count on October 06, 2016 was reported at 32,000. His hemoglobin was 14.4 platelets 170,000 and his differential reported lymphocytes of 83.2% neutrophils 13.7% absolute lymphocyte count was 26,700. Follow-up CBC on 10/28/2016 reported a white count of 33,700 and differential showed lymphocytes and 78.5%. He remained on observation. F CT of the chest abdomen pelvis on 04/25/2018 and when compared with a CT scan of chest abdomen pelvis from 11/25/2016 there was very mild progression in size and number of axillary, mediastinal and hilar as well as pelvic adenopathy. The spleen size is 14.8 cm compared to 13.4 cm on 11/25/2016. Follow-up CT of the chest abdomen pelvis on 01/05/2019 reported stable bilateral axillary, mediastinal, right hilar lymphadenopathy with no evidence of progression. The splenomegaly he had marginally increased from 04/25/2018. Was noted that he had progressive pelvic lymphadenopathy with a lymph node increased from 1.1 to 1.5 cm and 1.3 to 1.7 cm in the left external iliac. The left internal iliac measured 1.8 compared to 1.4 cm. It was noted that he had a large prostate as well. He did have follow-up repeat CT scan of the chest abdomen pelvis on May 19, 2019 which showed axillary, mediastinal and hilar lymph nodes which were indeterminate with no interval change. The largest lymph node measured at the right hilum was 14 mm. The pelvic lymphadenopathy was without significant progression in size or number since January 05, 2019. There were numerous enlarged lymph nodes. Some measures slightly smaller in size other slightly larger in size which was felt to be due to technical variation. The largest lymph node was measured at 19 mm in the left ureter region. He had markedly enlarged prostate gland. This splenomegaly was at 16.5 cm. It was noted that he had cholelithiasis. Mr. Garcia was started on ibrutinib 420 mg daily along with allopurinol on June 02, 2019. Unfortunately the ibrutinib was discontinued on August 03, 2019 at which time he had called reporting episodes of palpitations lasting for a long time . The ibrutinib was stopped and he was referred to cardiology. He had no further palpitations after stopping the ibrutinib. Mr. Garcia was here for follow-up on September 13, 2019. He was having no significant symptoms but had persistent peripheral lymphadenopathy involving the neck and bilateral axilla and inguinal area. He had no headaches vision changes fever or chills. He had no night sweats or weight loss or any recurrent fever at that time. Had any abdominal fullness as well. He did have follow-up echocardiogram on August 28, 2019 which reported a left ventricular size and systolic ejection fraction of 60%. There was trace mitral valve regurgitation. He did have cardiac monitoring for 15 days he had had any report preliminary report per [facility] reported baseline rhythm was found to be normal sinus with a rate of 61 bpm there was one episode of atrial fibrillation with rapid ventricular rate of 110 lasting for 2 minutes. He is followed with Dr. Murillo regarding the monitor. White count on the September 13, 2019 visit was noted to be 1 29,000. Previously on August 16 it was 235,000 and on May 21, 2019 was 303,000., was recommended to pursue systemic therapy with bendamustine Rituxan. He began his first cycle on September 13, 2019. His last treatment with Rituxan bendamustine was on November 07 and 2019. Mr. Garcia is here today for follow-up. He was admitted to [facility] on 12/29/2019 and treated for severe COVID-19 infection-pneumonia: He required oxygen support in the hospital with groundglass opacities on chest x-ray and CT. He was pretreated with remdesivir, Decadron and empirically covered with antibiotics on presentation due to sepsis treated with Zosyn. Subsequently Primaxin and vancomycin was added as he did have neutropenia in the hospital with his ANC as low as 280. He did slowly recover and was discharged on January 10, 2020. He was readmitted to [facility] on January 23, 2020 with acute sepsis. He was admitted to the general medical floor???Covid unit started on broad-spectrum antibiotic therapy and monitor. His cultures were all unremarkable C. difficile was negative MRSA was negative urine bacterial antigens negative, stool studies negative, CMV unremarkable, influenza negative, parainfluenza negative, galactomannan pending SARS rapid positive on previous admission all cultures were negative this admission. He did have transaminitis, elevated alk phos and right upper quadrant pain in the right upper quadrant ultrasound was negative for cholecystitis. HIDA scan no evidence of acute or chronic cystitis, gallbladder ejection was around 90%. CT of the chest showed bilateral groundglass infiltrates areas of consolidation. At the time there was some concern that he may have had healthcare associated pneumonia he was continued on broad-spectrum antibiotics. He required up to 5 L nasal cannula no shortness of breath complaints no cough. He continued to have high-grade fevers despite being on broad spectrum antibiotics for 72 hours. After discussion with with infectious disease, thought was the patient could have continued COVID-19 infection, thus rems does a fair and Decadron were restarted. For the next 48 hours the patient remained asymptomatic and remained afebrile for the next 48 hours. However he started to develop anemia with his hemoglobin is 7.7 neutropenia at 530 and thrombocytopenia with platelets as low as 90,000. After discussions with infectious disease and Dr. Plaza the thought them was that Mr. Garcia could be suffering bone marrow suppression from the remdesivir or the COVID-19 or the antibiotics. The broad-spectrum antibiotics were deescalated to azithromycin and Levaquin that remdesivir was stopped Decadron was stopped. He received 1 unit packed red blood cells and Neupogen x2. Attempt was made to refer him to [facility] but his counts begin to recover and he began to improve and therefore the transfer was canceled. Mr. Garcia was discharged on January 23, 2020. He is here today for post hospital follow-up. He states overall he is doing much better. He has continued to run some low-grade fevers. He states it was up to 100 last night and this morning. He states that he is out of the Zithromax and has been out since Wednesday. He denies any productive cough. He states he is coughing is occasionally also denies hemoptysis. He denies any nausea or vomiting. He states he is just weak and rundown. He states he is eating the best that he can but does not have much of an appetite currently. He denies any concerns for infection other than the fever. His ECOG is 2. . Past Medical History: Benign prostatic hypertorphy Chronic kidney disease Diabetes type II Dyslipidemia Obstructive Sleep Apnea Osteoporosis COVID-19 Positive in 2019 Past Surgical History: Mr. Garcia's surgical history is unremarkable. Allergies: No Known Allergies. Medications: AmLODIPine Besylate 1 Tablet (of 10 mg) Oral daily Aspirin 1 Tablet (of 81 mg) Tablet, enteric coated Oral daily Finasteride 1 Tablet (of 5 mg) Oral daily Furosemide 1 Tablet (of 20 mg) Oral daily Family History: Mr. Garcia's mother at age 82: heart failure. Mr. Garcia's father at age 82: lung cancer. Social History: Mr. Garcia is and he is retired. Mr. Garcia quit smoking 24 years ago but had smoked 1.0 pack/day for 25 years. He has no history of drinking. Mr. Garcia reports the following support systems: lives with spouse, significant other, family, or friends, lives in own house, supportive family/friends willing to assist with needs, and adequate transportation available for expected visits. His diet consists of regular meals. He indicates his activity level as: daily activities. Review Of Symptoms: Constitutional Denies chills, night sweats, excessive fatigue or weight loss. Has had low grade temp of 100.0 for the last 2 days. Allergic/Immunologic No reactions. ENMT Denies changes in hearing, sore throat, mouth sores, difficulty or changes in swallowing ability, and/or sinus drainage. Hematologic/Lymphatic Denies easy bruising or bleeding. The patient denies any tender or palpable lymph nodes. Respiratory Denies dyspnea on exertion, chest pain, cough or hemoptysis. Denies orthopnea. Cardiovascular Denies anginal chest pain, palpitations or orthopnea. Gastrointestinal Denies nausea, vomiting, diarrhea, GI bleeding, or constipation. Denies change in bowel habits and/or stool color, no heartburn or early satiety. Genitourinary (M) Denies hematuria, dysuria, increased frequency, urgency, hesitancy or incontinence. Musculoskeletal Denies joint pain, swelling or redness. No decreased range of motion. Integumentary Denies chronic rashes, inflammation, ulcerations or skin changes. Neurologic Denies headache, blurred vision, and no areas of focal weakness or numbness. Normal gait. No sensory problems. Psychiatric Denies insomnia, depression, ambrosio or mood swings. Vital Signs: Performed on Jan 29, 2020 11:38 Height - 69.50 in Weight - 177.0 lbs (LOW) BSA - 1.97 sq.m BMI - 25.76 Temperature - 97.3 F (LOW) Pulse - 93 /min Respiration - 26 /min BP - 118/82 mm(hg) O2 Sat - 99 % Pain - 0,2 - Ambulatory/capable of all self-care, unable to perform any work activities. Up and about more than 50% of waking hours. (ECOG) Physical Examination: Constitutional Alert, oriented, no acute distress. Skin pink, warm and dry. Head Normocephalic; atraumatic. Eyes Conjunctivae and sclerae are clear and without icterus. Pupils are reactive and equal. Neck Supple without masses or thyromegaly. No jugular venous distension. Hematologic/Lymphatic No petechiae or purpura. No tender or palpable lymph nodes in the cervical or supraclavicular areas. Respiratory Lungs are clear to auscultation without rhonchi or wheezing. Cardiovascular Regular rate and rhythm of heart without murmurs,clicks, gallops or rubs. Back/Spine Non-tender to palpation. Extremities No visible deformities, no cyanosis, clubbing or edema. Musculoskeletal No tenderness or swelling, normal range of motion without obvious weakness. Integumentary No rashes or lesions. Neurologic No sensory or motor deficits, normal cerebellar function, normal gait. Psychiatric Alert and oriented times three. Coherent speech. Verbalizes understanding of our discussions today. Laboratory:Test performed on Jan 13, 2020 16:32 WBC 38.1 10^9/L RBC 3.2 10^12/L HGB 8.8 g/dL HCT 30.1 % MCV 94.1 fl MCH 27.5 pg MCHC 29.2 g/dL RDW 16.1 % Platelet Count 126 10^9/L Neutrophils (Gran) 1.4097 10^9/L Lymphocytes 36.4236 10^9/L Monocytes 0.0762 10^9/L Eosinophils 0.0 10^9/L Basophils 0.0 10^9/L Test performed on Dec 06, 2019 10:03 SARS-CoV-2 RNA (COVID-19) DETECTED A Detected result is considered a positive test result for COVID-19. This indicates that RNA from SARS-CoV-2 (formerly 2019-nCoV) was detected, and the patient is infected with the virus and presumed to be contagious. If requested by public health authority, specimen will be sent for additional testing. Please review the Fact Sheets and FDA authorized labeling available for health care providers and patients using the following websites: https://www.EasyPost.WorkSimple/home/Covid-19/HCP/NAAT/fact-sheet2 https://www.EasyPost.WorkSimple/home/Covid-19/Patients/NAAT/ fact-sheet2 This test has been authorized by the FDA under an Emergency Use Authorization (EUA) for use by authorized laboratories. Due to the current public health emergency, [facility] is receiving a high volume of samples from a wide variety of swabs and media for COVID-19 testing. In order to serve patients during this public health crisis, samples from appropriate clinical sources are being tested. Negative test results derived from specimens received in non-commercially manufactured viral collection and transport media, or in media and sample collection kits not yet authorized by FDA for COVID-19 testing should be cautiously evaluated and the patient potentially subjected to extra precautions such as additional clinical monitoring, including collection of an additional specimen. Methodology: Nucleic Acid Amplification Test (NAAT) includes PCR or TMA Additional information about COVID-19 can be found at the [facility] website: www.[employer]IRSIS.WorkSimple/Covid19. THIS TEST WAS PERFORMED AT: [facility] [address] [address] [place] [address] TONIA LEMUS DO,MPH Test performed on Dec 05, 2019 08:12 Glucose 129 mg/dL BUN 8 mg/dL Creatinine 0.9 mg/dL Cr Clearance (Est) 112.02 mL/min Sodium 139 mmol/L Potassium 3.4 mmol/L Chloride 102 mmol/L CO2 26 mmol/L Calcium 8.4 mg/dL Protein, Total 6.2 g/dL Albumin 3.9 g/dL Globulin 2.3 g/dL Bilirubin, Total 0.7 mg/dL Alkaline Phosphatase 83 IU/L AST (SGOT) 25 IU/L ALT (SGPT) 30 IU/L MPV 10.8 fL Manual Lymphocytes 76 % Manual Monocytes 0.0 % Manual Eosinophils 1 % Test performed on Nov 07, 2019 08:07 Hemoglobin A1C 5.8 % Test performed on Oct 23, 2019 11:40 Anion Gap 12.7 eGFR 74.1 mL/min Osmolality - Calculated 285 mOsm/kg Manual Segs % 5 % Manual Bands % 0.0 % Atypical Lymphs % 19.0 % Total Cells Counted 100 Anisocytosis Trace CBC Slide Review Slide Review Perform Platelet Estimate Decreased Manual Segs Abs 1.3 10/cmm Manual Bands Abs 0.0 10 3/cmm Manual Neutrophils Abs 1.3 10 3/cmm Manual Lymphocytes Abs 25.0 10 3/cmm Test performed on Oct 10, 2019 08:11 Manual Basophils 0.0 % Test performed on Oct 03, 2019 08:58 LDH, Total 182 IU/L Test performed on Sep 21, 2019 11:40 NRBC % 0 % Manual Monocytes Abs 1.0 10 3/cmm Test performed on Sep 13, 2019 10:00 Neutrophil % 2.9 % Lymphocyte % 94.1 % Monocyte % 2.7 % Eosinophil % 0.2 % Basophils % 0.0 % Impression: 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 Dr Plaza discussed with patient regarding his CT scan finding and lab workup. His white blood count is elevated due to lymphocytosis at 48.7 with a normal hemoglobin and hematocrit as well as platelets No evidence of peripheral lymphadenopathy or central lymphadenopathy except mild lymphadenopathy in pelvis maximum size 1.[address] scan of pelvis on 06/07/2009 it was 0.8 cm. Incidental finding, large thyroid goiter causing impingement on trachea and esophagus at the cervicothoracic junction the vast majority of monotypic B cells express CD38 next CLL panel, FISH showed positive for deletion of TP53 (unfavorable prognosis and chemotherapy resistance) And IGHV status shows non-mutation e.g. poor prognostic features Quantitative immunoglobulins checked on 11/04/2016 showed IgG 1100 normal being 700-1600 IgM 53 normal being 40-230 IgA 150 normal being 70-400 Beta-2 microglobulin 0.230 normal being 0.109 -0.253 CT scan of chest abdomen pelvis done on 11/25/2016 showed bilateral lower lobe parenchymal scarring with bilateral lower lobe bronchiectasis segment similar to 06/07/2009. Thyroid goiter with tracheal and esophageal impingements at cervicothoracic junction. Nonspecific right hilar lymph nodes no enlarged or pathological lymphadenopathy seen. Mild iliac region lymph nodes enlargements since 06/07/2009 Size about 1.3 cm. mild splenomegaly Repeat sonogram of abdomen On 12/20/2017 shows mild splenomegaly now 12.9 cm compared to 13.2 cm on 03/02/2017 On 02/09/2018 patient was evaluated by Dr. Alvarenga technology instructor at [facility] and his labs done there showed white blood count 198.7 hemoglobin 13.4 hematocrit 34.4 platelets 188,000 IgA 100, IgM 43, IgG 889, SPEP no monoclonal peak, serum light chains showed kappa 2.44, lambda 2.9, kappa/lambda ratio 0.84 which was normal. And his recommendations were serial CT scan of chest abdomen pelvis once a year or sooner if needed. And continue to monitor CBC unless white blood count more than 200,000 as it may be associated with hyperviscosity and treatment options if decided to treat his recommendation was short course of bendamustine/Rituxan up to 4 cycles to achieve an initial response followed by ibrutinib maintenance. CT scan of chest abdomen pelvis done on 04/25/2018 showed very mild progression in the size and number of axillary, just tunnel, hilar and pelvic lymphadenopathy since 11/25/2016 Mild increase in size of spleen since 11/25/2016, now 14.8 cm compared to 13.4 before. Severe prostrate gland enlargement Plan: 1. Continue observation during recovery from COVID-19. 2. Will refill zithromax for 1 more week due to fever of 100. 3. Labs fron 01/23/2020 reported a white count of 25.4 hemoglobin 9.3 platelets 10 9000 and ANC was 640. His creatinine at that time was 0.6. His AST was 68 ALT was 147 C-reactive protein was 15.5. His white count today is 32.9 hemoglobin is 9.0 platelets 121,000 ANC today is 1500. His chemistry was not repeated. 4. Mr. Garcia will continue the Zithromax and supportive care as needed. We will plan to see him back in the next couple of weeks at which time hopefully we can resume his Rituxan bendamustine as his white count is elevating. However he needs additional time to recover. 5. Mr. Garcia was encouraged to contact us in the interim should questions or problems arise. I will discuss his labs and his assessment with Dr. Plaza upon his return to the clinic on Friday, February 07, 2020 to determine treatment and follow-up plan. Signed By: Luis Angel Jolley-, [facility] Rosanne plaza MD <<Signature on File>>
== END 2020-02-05 23:59 | disposition home or self-care (01) ==
LOC: ONCMED 05:36
PROVIDERS: PCP Nurse Practitioner; Visit Provider Nurse Practitioner
DX: C91.90 Lymphoid leukemia, unspecified not having achieved remission (principal); D72.820 Lymphocytosis (symptomatic); E04.1 Nontoxic single thyroid nodule; N40.0 Benign prostatic hyperplasia without lower urinary tract symptoms; U07.1 COVID-19; Z79.899 Other long term (current) drug therapy
CPT/HCPCS: 99214

== ENCOUNTER 2020-01-29 12:07 | Outpatient (CLI) | payer MEDICARE, OTHER, SELFPAY ==
[2020-01-29 12:36] LABS: Eosinophils % 0.1 %; Hematocrit 31.4 % (42.0-52.0); Lymphocytes # 31.2 10^3/uL (0.8-4.8); Lymphocytes % 94.9 %; Mean Corpuscular HGB Conc 28.7 g/dL (30.0-36.0); Mean Corpuscular Hemoglobin 27.4 pg (28.0-34.0); Mean Corpuscular Volume 95.4 fL (80-94); Mean Platelet Volume 11.9 fL (7.4-10.4); Monocytes # 0.1 10^3/uL (0.2-0.9); Monocytes % 0.2 %; Neutrophils # 1.51 10^3/uL (1.8-7.7); Neutrophils % 4.6 %; Nucleated Red Blood Cells % 0 %; Platelet Count 121 10^3/cmm (130-400); Red Blood Count 3.29 10^6/uL (4.1-5.3); Red Cell Distribution Width 17.5 % (12.1-15.1)
[2020-01-29 14:14] LABS: Slide Review Slide Review Perform
[2020-01-29 14:21] LABS: White Blood Count 32.9 10^3/uL (4.0-10.0)
== END 2020-01-29 12:08 | disposition home or self-care (01) ==
LOC: LAB 12:10
PROVIDERS: PCP Nurse Practitioner; Visit Provider Internal Medicine Hematology & Oncology
DX: U07.1 COVID-19 (principal)
CPT/HCPCS: 85025

== ENCOUNTER → 2020-02-15 15:07 | Outpatient (BNVA) | payer MEDICARE, OTHER, SELFPAY | PROVIDERS: PCP Nurse Practitioner; Visit Provider Nurse Practitioner | DX: E11.9 Type 2 diabetes mellitus without complications (principal); D70.9 Neutropenia, unspecified; J15.9 Unspecified bacterial pneumonia; R53.1 Weakness; E11.65 Type 2 diabetes mellitus with hyperglycemia | CPT/HCPCS: 80053; 85025 ==

== ENCOUNTER → 2020-03-21 13:36 | Outpatient (BNVA) | payer MEDICARE, OTHER, SELFPAY | PROVIDERS: PCP Nurse Practitioner; Visit Provider Nurse Practitioner | DX: C91.90 Lymphoid leukemia, unspecified not having achieved remission (principal); I48.0 Paroxysmal atrial fibrillation; D70.9 Neutropenia, unspecified | CPT/HCPCS: 80053; 83615; 85007; 85025 ==

== ENCOUNTER → 2020-06-04 12:01 | Outpatient (BNVA) | payer MEDICARE, OTHER, SELFPAY | PROVIDERS: PCP Nurse Practitioner; Visit Provider Nurse Practitioner | DX: C91.10 Chronic lymphocytic leukemia of B-cell type not having achieved remission (principal); E11.9 Type 2 diabetes mellitus without complications; E55.9 Vitamin D deficiency, unspecified; K12.2 Cellulitis and abscess of mouth | CPT/HCPCS: 80053; 82306; 82607; 83036; 84443; 85007; 85025 ==

== ENCOUNTER → 2020-07-17 11:00 | Outpatient (BNVA) | payer MEDICARE, OTHER, SELFPAY | PROVIDERS: PCP Nurse Practitioner; Visit Provider Nurse Practitioner | DX: E11.9 Type 2 diabetes mellitus without complications (principal); C91.10 Chronic lymphocytic leukemia of B-cell type not having achieved remission | CPT/HCPCS: 80053; 80061; 83036; 84443; 85007; 85025 ==

== ENCOUNTER → 2020-10-16 10:23 | Outpatient (BNVA) | payer MEDICARE, OTHER, SELFPAY | PROVIDERS: PCP Nurse Practitioner; Visit Provider Nurse Practitioner | DX: I10 Essential (primary) hypertension (principal); I48.0 Paroxysmal atrial fibrillation; E11.9 Type 2 diabetes mellitus without complications; E78.5 Hyperlipidemia, unspecified; R39.11 Hesitancy of micturition; C91.10 Chronic lymphocytic leukemia of B-cell type not having achieved remission | CPT/HCPCS: 80053; 83036; 85007; 85025 ==

== ENCOUNTER 2020-10-21 08:51 | Outpatient (CLI) | payer MEDICARE, OTHER, SELFPAY ==
[2020-10-21 09:34] LABS: Basophils # 0.3 10^3/uL (0.0-0.1); Basophils % 0.2 %; Eosinophils # 0.6 10^3/uL (0.0-0.8); Eosinophils % 0.3 %; Hematocrit 40.8 % (42.0-52.0); Hemoglobin 12.3 g/dL (11.7-16.6); Lymphocytes % 82.5 %; Mean Corpuscular HGB Conc 30.1 g/dL (30.0-36.0); Mean Corpuscular Hemoglobin 31.7 pg (28.0-34.0); Mean Corpuscular Volume 105.2 fl (80-94); Mean Platelet Volume 10.5 fL (7.4-10.4); Monocytes % 16.1 %; Neutrophils # 1.63 10^3/uL (1.8-7.7); Neutrophils % 0.8 %; Nucleated Red Blood Cells % 0 %; Platelet Count 146 10^3/cmm (130-400); Red Blood Count 3.88 10^6/uL (4.1-5.3); Red Cell Distribution Width 15.9 % (12.1-15.1)
[2020-10-21 09:56] LABS: Add Urine Microscopic? YES; Bilirubin Urine Neg (Negative); Blood Urine 3+ (Negative); Glucose Urine UA Norm (Normal); Ketones Urine Negative (Negative); Leukocyte Esterase Urine Negative (Negative); Nitrate Urine Negative (Negative); Protein Urine Trace (Negative); Urine Appearance Clear (CLEAR); Urine Color Yellow (Yellow); Urobilinogen Urine Norm (Negative); pH Urine 5 (5-7)
[2020-10-21 09:57] LABS: Bacteria Urine TRACE /hpf; RBC Urine 0-4 /hpf (0-2)
[2020-10-21 10:08] LABS: Alanine Aminotransferase 11 U/L (0-41); Albumin Level 4.6 g/dL (3.5-5.2); Alkaline Phosphatase 100 IU/L (40-130); Aspartate Amino Transferase 25 U/L (0-40); Blood Urea Nitrogen 19 mg/dL (8-23); Calcium 8.7 mg/dL (8.5-10.5); Carbon Dioxide 22 mmol/L (22-29); Chloride 105 mmol/L (98-107); Globulin 2.7 g/dL (1.3-4.6); Glomerular Filtration Rate 95.6 mL/min (90-130); Glucose 166 mg/dL (65-115); Osmolality Calculated 290 mOsm/kg (285-295); Sodium 137 mmol/L (136-145); Thyroid Stimulating Hormone 1.55 uIU/mL (0.27-4.20); Total Bilirubin 0.3 mg/dL (0.15-1.2); Total Protein 7.3 g/dL (6.6-8.7); Uric Acid 6.1 mg/dL (3.4-7.0)
[2020-10-21 10:12] LABS: Anion Gap 15.8 (5-19); Lactate Dehydrogenase 353 U/L (135-225); Potassium 5.8 mmol/L (3.5-5.1)
[2020-10-21 10:41] LABS: Lymphocytes # 158.8 10^3/uL (0.8-4.8); White Blood Count 192.5 10^3/uL (4.0-10.0)
[2020-10-21 10:42] LABS: Slide Review Slide Review Perform
--- NOTE | 2020-10-21 11:49 | ONC FU_ITS ---
Dr. Plaza follow up note Patient: Lb Garcia Unit #: [id number]: 1950 Dicatated By: Rosanne Plaza M.D.Date of Visit:Oct 21, 2020 Onc Med Follow-up/Prog Note History of Present Illness: Mr. Garcia is a 70 -year-old gentleman with a past history of elevated white blood count. He reports that he had been having low-grade fever since February 2016. He presented initially with night sweats and was diagnosed with pneumonia. His white blood count on October 06, 2016 was reported at 32,000. His hemoglobin was 14.4 platelets 170,000 and his differential reported lymphocytes of 83.2% neutrophils 13.7% absolute lymphocyte count was 26,700. Follow-up CBC on 10/28/2016 reported a white count of 33,700 and differential showed lymphocytes and 78.5%. He remained on observation. F/u CT of the chest abdomen pelvis on 04/25/2018 and when compared with a CT scan of chest abdomen pelvis from 11/25/2016 there was very mild progression in size and number of axillary, mediastinal and hilar as well as pelvic adenopathy. The spleen size is 14.8 cm compared to 13.4 cm on 11/25/2016. Follow-up CT of the chest abdomen pelvis on 01/05/2019 reported stable bilateral axillary, mediastinal, right hilar lymphadenopathy with no evidence of progression. The splenomegaly he had marginally increased from 04/25/2018. Was noted that he had progressive pelvic lymphadenopathy with a lymph node increased from 1.1 to 1.5 cm and 1.3 to 1.7 cm in the left external iliac. The left internal iliac measured 1.8 compared to 1.4 cm. It was noted that he had a large prostate as well. He did have follow-up repeat CT scan of the chest abdomen pelvis on May 19, 2019 which showed axillary, mediastinal and hilar lymph nodes which were indeterminate with no interval change. The largest lymph node measured at the right hilum was 14 mm. The pelvic lymphadenopathy was without significant progression in size or number since January 05, 2019. There were numerous enlarged lymph nodes. Some measures slightly smaller in size other slightly larger in size which was felt to be due to technical variation. The largest lymph node was measured at 19 mm in the left ureter region. He had markedly enlarged prostate gland. This splenomegaly was at 16.5 cm. It was noted that he had cholelithiasis. Mr. Garcia was started on ibrutinib 420 mg daily along with allopurinol on June 02, 2019. Unfortunately the ibrutinib was discontinued on August 03, 2019 at which time he had called reporting episodes of palpitations lasting for a long time . The ibrutinib was stopped and he was referred to cardiology. He had no further palpitations after stopping the ibrutinib. Mr. Garcia was here for follow-up on September 13, 2019. He was having no significant symptoms but had persistent peripheral lymphadenopathy involving the neck and bilateral axilla and inguinal area. He had no headaches vision changes fever or chills. He had no night sweats or weight loss or any recurrent fever at that time. Had any abdominal fullness as well. He did have follow-up echocardiogram on August 28, 2019 which reported a left ventricular size and systolic ejection fraction of 60%. There was trace mitral valve regurgitation. He did have cardiac monitoring for 15 days he had had any report preliminary report per [employer] access reported baseline rhythm was found to be normal sinus with a rate of 61 bpm there was one episode of atrial fibrillation with rapid ventricular rate of 110 lasting for 2 minutes. He is followed with Dr. Murillo regarding the monitor. White count on the September 13, 2019 visit was noted to be 1 29,000. Previously on August 16 it was 235,000 and on May 21, 2019 was 303,000., was recommended to pursue systemic therapy with bendamustine Rituxan. He began his first cycle on September 13, 2019. His last treatment with Rituxan bendamustine was on November 072019. He was admitted to [facility] on 12/29/2019 and treated for severe COVID-19 infection-pneumonia: He required oxygen support in the hospital with groundglass opacities on chest x-ray and CT. He was pretreated with remdesivir, Decadron and empirically covered with antibiotics on presentation due to sepsis treated with Zosyn. Subsequently Primaxin and vancomycin was added as he did have neutropenia in the hospital with his ANC as low as 280. He did slowly recover and was discharged on January 10, 2020. He was readmitted to [facility] on January 23, 2020 with acute sepsis. He was admitted to the general medical floor???Covid unit started on broad-spectrum antibiotic therapy and monitor. His cultures were all unremarkable C. difficile was negative MRSA was negative urine bacterial antigens negative, stool studies negative, CMV unremarkable, influenza negative, parainfluenza negative, galactomannan pending SARS rapid positive on previous admission all cultures were negative this admission. He did have transaminitis, elevated alk phos and right upper quadrant pain in the right upper quadrant ultrasound was negative for cholecystitis. HIDA scan no evidence of acute or chronic cystitis, gallbladder ejection was around 90%. CT of the chest showed bilateral groundglass infiltrates areas of consolidation. At the time there was some concern that he may have had healthcare associated pneumonia he was continued on broad-spectrum antibiotics. He required up to 5 L nasal cannula no shortness of breath complaints no cough. He continued to have high-grade fevers despite being on broad spectrum antibiotics for 72 hours. After discussion with with infectious disease, thought was the patient could have continued COVID-19 infection, thus rems does a fair and Decadron were restarted. For the next 48 hours the patient remained asymptomatic and remained afebrile for the next 48 hours. However he started to develop anemia with his hemoglobin is 7.7 neutropenia at 530 and thrombocytopenia with platelets as low as 90,000. After discussions with infectious disease , thought that Mr. Garcia could be suffering bone marrow suppression from the remdesivir or the COVID-19 or the antibiotics. The broad-spectrum antibiotics were deescalated to azithromycin and Levaquin that remdesivir was stopped Decadron was stopped. He received 1 unit packed red blood cells and Neupogen x2. Attempt was made to refer him to [facility] but his counts begin to recover and he began to improve and therefore the transfer was canceled. Mr. Garcia was discharged on January 23, 2020., As per patient , he was on home oxygen and wheelchair due to deconditioning for 2-1/2 months After discharge from hospital in January 2020, and then with the help of physical therapy he started recovering slowly but gradually and was following his PMD on regular basis and during follow-up in July 2020 his white blood count gone up to 80,000 and last week he got up to 186,000 and he also noticed progressive lymphadenopathy in the neck for which his PMD gave him oral antibiotic without much improvement. Patient denies any night sweats, denies any recurrent fever denies any weight loss rather weight gain, off and on abdominal fullness/bloatedness. Also complaining of left axillary lymphadenopathy. No headaches, no blurred vision or double vision, no shortness of breath at rest but dyspnea on exertion as per patient he is on Eliquis for chronic A. 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 Murillo, manager field sales. . Medications: AmLODIPine Besylate 1 Tablet (of 10 mg) Oral daily, Apixaban (5 mg) Tablet Oral b.i.d., Aspirin 1 Tablet (of 81 mg) Tablet, enteric coated Oral daily, Finasteride 1 Tablet (of 5 mg) Oral daily, Furosemide 1 Tablet (of 20 mg) Oral daily, Lisinopril 1 Tablet (of 20 mg) Oral daily, Lovastatin ER 1 Tablet (of 40 mg) Tablet SR 24 HR Oral daily, Metoprolol Tartrate (25 mg) Tablet Oral b.i.d. Allergies: No Known Allergies. Review of Systems: Review of Systems is not available for this patient. Vital Signs: Performed on Oct 21, 2020 11:26 Height - 69.50 in Weight - 218.4 lbs (HIGH) BSA - 2.16 sq.m BMI - 31.79 (HIGH) Temperature - 98 F (LOW) Pulse - 59 /min (LOW) Respiration - 18 /min BP - 119/72 mm(hg) O2 Sat - 96 % Pain - 0 Fatigue - 0 Performance Status: 1 - No physically strenuous activity, but ambulatory and able to carry out light or sedentary work (e.g. office work, light house work). (ECOG) Physical Examination: ENMT - No mouth sores, no thrush, no jaundice, bilateral cervical/supraclavicular lymph node palpable nontender and left axillary lymphadenopathy, Respiratory - Lungs are clear to auscultation, Cardiovascular - Irregular rate and rhythm, Abdomen - Soft, bowel sounds present, Extremities - No visible edema. Lab/Imaging: Most recent lab results are not available for this patient. 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 Discussed with patient regarding his CT scan finding and lab workup. His white blood count is elevated due to lymphocytosis at 48.7 with a normal hemoglobin and hematocrit as well as platelets No evidence of peripheral lymphadenopathy or central lymphadenopathy except mild lymphadenopathy in pelvis maximum size 1.3 [address] scan of pelvis on 06/07/2009 it was 0.8 cm. Incidental finding, large thyroid goiter causing impingement on trachea and esophagus at the cervicothoracic junction the vast majority of monotypic B cells express CD38 next CLL panel, FISH showed positive for deletion of TP53 (unfavorable prognosis and chemotherapy resistance) And IGHV status shows non-mutation e.g. poor prognostic features Quantitative immunoglobulins checked on 11/04/2016 showed IgG 1100 normal being 700-1600 IgM 53 normal being 40-230 IgA 150 normal being 70-400 Beta-2 microglobulin 0.230 normal being 0.109 -0.253 CT scan of chest abdomen pelvis done on 11/25/2016 showed bilateral lower lobe parenchymal scarring with bilateral lower lobe bronchiectasis segment similar to 06/07/2009. Thyroid goiter with tracheal and esophageal impingements at cervicothoracic junction. Nonspecific right hilar lymph nodes no enlarged or pathological lymphadenopathy seen. Mild iliac region lymph nodes enlargements since 06/07/2009 Size about 1.3 cm. mild splenomegaly Repeat sonogram of abdomen On 12/20/2017 shows mild splenomegaly now 12.9 cm compared to 13.2 cm on 03/02/2017 On 02/09/2018 patient was evaluated by Dr. Alvarenga loan review analyst at [facility] and his labs done there showed white blood count 198.7 hemoglobin 13.4 hematocrit 34.4 platelets 188,000 IgA 100, IgM 43, IgG 889, SPEP no monoclonal peak, serum light chains showed kappa 2.44, lambda 2.9, kappa/lambda ratio 0.84 which was normal. And his recommendations were serial CT scan of chest abdomen pelvis once a year or sooner if needed. And continue to monitor CBC unless white blood count more than 200,000 as it may be associated with hyperviscosity and treatment options if decided to treat his recommendation was short course of bendamustine/Rituxan up to 4 cycles to achieve an initial response followed by ibrutinib maintenance. CT scan of chest abdomen pelvis done on 04/25/2018 showed very mild progression in the size and number of axillary, just tunnel, hilar and pelvic lymphadenopathy since 11/25/2016 Mild increase in size of spleen since 11/25/2016, now 14.8 cm compared to 13.4 before.Treated with ibrutinib for progressive CLL/SLL,,Started on 420 mg daily along with allopurinol on June 02, 2019 , which was eventually discontinued on August 03, 2019 because of episode of palpitation causing lightheadedness dizziness which improved after stopping ibrutinib, patient was referred to cardiology and eventually was diagnosed with A. fib which was medically managed and was started on Eliquis also but due to progressive disease he was started on bendamustine/Rituxan on September 13, 2019, patient responded well after third cycle which was given on November 08, 2019 his white blood count went down to 17.9 from 290,000 prior to the BR regimen, and resolution of peripheral lymphadenopathy, subsequently patient developed Covid infection for which he was admitted to hospital and patient did not receive further treatment after last dose of bendamustine/Rituxan on November 07 and 2019 Covid infection requiring hospitalization for 20 days but was not intubated but required oxygen and was discharged home on oxygen in November 2019 Severe prostrate gland enlargement Plan: Discussed with patient regarding his labs white blood count 192.5 thousand, hemoglobin 12.3 g compared to 8.8 in January 2020 hematocrit 40.8 platelets 146,000 absolute lymphocyte count 150.8 thousand CMP within normal limit except glucose 166 and potassium 5.8 and LDH 353 compared to 215 in December 2019 Clinically, patient is doing reasonably well, not in acute distress but recovering from severe Covid infection, now with progressive lymphocytosis and peripheral lymphadenopathy due to underlying chronic lymphocytic leukemia but no associated B symptoms, at this point we will consider CT scan of neck chest abdomen pelvis to assess central lymphadenopathy as well as organomegaly if it shows extensive lymphadenopathy, may consider CT PET scan to rule out transformation to high-grade lymphoma although less likely, Mild hyperkalemia probably due to severe leukocytosis/lymphocytosis, will monitor If there is no evidence of transformation into high-grade lymphoma, considering patient's performance status, and his concern about treatment later toxicity e.g. patient said bendamustine/Rituxan was too much for him to handle, may consider treatment with Rituxan alone or obinutuzumab alone or plus minus venetoclax or high-dose prednisone plus Rituxan or R-CVP Patient return to clinic in 1 week with CBC CMP and CT scan of neck chest abdomen pelvis Signed By: Rosanne Plaza M.D. <<Signature on File>>
== END 2020-10-21 08:52 | disposition home or self-care (01) ==
LOC: ONCMED 08:56
PROVIDERS: PCP Nurse Practitioner; Visit Provider Internal Medicine Hematology & Oncology
DX: C91.10 Chronic lymphocytic leukemia of B-cell type not having achieved remission (principal); E04.1 Nontoxic single thyroid nodule; N40.0 Benign prostatic hyperplasia without lower urinary tract symptoms; Z86.16 Personal history of COVID-19; Z79.899 Other long term (current) drug therapy; Z92.21 Personal history of antineoplastic chemotherapy
CPT/HCPCS: 36415; 80053; 81001; 83615; 84443; 84550; 85025; 99214

== ENCOUNTER 2020-10-24 11:36 | Outpatient (CLI) | payer MEDICARE, OTHER, SELFPAY ==
[2020-10-24 12:15] LABS: Basophils # 0.1 10^3/uL (0.0-0.1); Basophils % 0.1 %; Eosinophils # 0.4 10^3/uL (0.0-0.8); Eosinophils % 0.2 %; Lymphocytes % 83.3 %; Mean Corpuscular HGB Conc 29.3 g/dL (30.0-36.0); Mean Corpuscular Volume 105.9 fl (80-94); Mean Platelet Volume 10.6 fL (7.4-10.4); Monocytes # 29.6 10^3/uL (0.2-0.9); Monocytes % 15.5 %; Neutrophils # 1.65 10^3/uL (1.8-7.7); Neutrophils % 0.8 %; Nucleated Red Blood Cells % 0 %; Platelet Count 138 10^3/cmm (130-400); Positive M 1; Red Blood Count 3.87 10^6/uL (4.1-5.3); Red Cell Distribution Width 15.9 % (12.1-15.1)
--- NOTE | 2020-10-24 12:24 | CT_ITS ---
WS: [id number] CT CHEST, ABDOMEN AND PELVIS WITH CONTRAST. HISTORY: HX OF CANCER/ CLL TECHNIQUE: Contiguous 5 mm axial imaging performed through the chest, abdomen and pelvis with IV cont rast, oral contrast has been provided. Coronal and sagittal reformats chest. Coronal and sagittal ref ormats through the abdomen and pelvis. All CT scans at [facility] use at least one of the se dose optimization techniques: automated exposure control; mA and/or kV adjustment per patient size (includes targeted exams where dose is matched to clinical indication); or iterative reconstruction. CONTRAST: Omnipaque 300; 95 mL IV. DLP: 1936.12 mGy.cm COMPARISON: CT abdomen and pelvis 01/17/2020. Chest CT 01/17/2020. Chest CT: Increase in the size and number of the bilateral axillary and LEFT supraclavicular lymph no winter. Largest lymph nodes within the axilla measure up to 2.3 cm in diameter. LEFT supraclavicular lym ph node with a maximum diameter of 1.3 cm. Numerous bilateral paratracheal, aortopulmonary and subcar inal lymph nodes are identified. The largest lymph node is 1.7 cm in the aortopulmonary region. These lymph nodes are essentially unchanged. Smaller bilateral hilar lymph nodes. Retrocrural lymph node n oted the GE junction measures 1.0 cm with very mild enlargement. The lungs are clear. No pneumonia. Heart size is enlarged. No pericardial or pleural effusion. There are small lymph nodes adjacent to the pericardium. Abdomen CT: Liver is normal size. Cholelithiasis without acute cholecystitis. Negative pancreas. The spleen has enlarged now measuring 16.2 cm in length as compared to 13.3 cm. No adrenal mass. Kidneys are normal bilaterally. Mild hydronephrosis LEFT kidney is unchanged. Nonobstructing 4 mm calcificati on lower pole LEFT kidney. Normal aorta. No celiac axis or michael hepatis adenopathy. There are very small retroperitoneal lymph nodes at the l evel of the renal arteries. At the bifurcation larger lymph nodes are identified. The largest on the LEFT measures 1.6 cm. Additional smaller lymph nodes at the aortic bifurcation extending along the il iac arteries. Bilateral iliac chain and obturator lymph lymphadenopathy is now identified. These node s have significantly enlarged with the largest on the LEFT measuring 3.2 x 3.4 cm. The largest on the RIGHT along the distal iliac chain measures 4.1 x 1.8 cm. Numerous bilateral inguinal and obturator lymph nodes. Mild diffuse constipation. No colonic obstruction. The appendix is normal. Numerous diverticula in th e distal colon. Pelvic CT: Prostate gland is enlarged. Prostate gland measures 9.1 x 8.0 x 8.2 cm with a significant extension of the urinary bladder. Diffuse bladder wall thickening due to outlet obstruction. Sclerotic focus in the proximal RIGHT femur. This probably a bone island. CT/CT chest abd pel w con* IMPRESSION: 1. Significant increase in size of the bilateral axillary and LEFT supraclavic ular lymph nodes. Lymph nodes in the mediastinum and hilar regions remain stabl e since 01/17/2020. 2. Significant increase in size and number of the lymph nodes along the iliac chains bilaterally extending into the obturator and inguinal regions. 3. Marked prostate gland enlargement. 4. Splenomegaly. Spleen measures 16.2 cm in length as compared to 13.3 cm on t he prior study. 5. Cholelithiasis without acute cholecystitis.
[2020-10-24 12:31] LABS: Alanine Aminotransferase 10 U/L (0-41); Albumin Level 4.5 g/dL (3.5-5.2); Alkaline Phosphatase 101 IU/L (40-130); Anion Gap 11.1 (5-19); Aspartate Amino Transferase 19 U/L (0-40); Blood Urea Nitrogen 14 mg/dL (8-23); Carbon Dioxide 27 mmol/L (22-29); Chloride 103 mmol/L (98-107); Globulin 2.9 g/dL (1.3-4.6); Glomerular Filtration Rate 95.6 mL/min (90-130); Glucose 82 mg/dL (65-115); Osmolality Calculated 284 mOsm/kg (285-295); Potassium 4.1 mmol/L (3.5-5.1); Sodium 137 mmol/L (136-145); Total Bilirubin 0.4 mg/dL (0.15-1.2); Total Protein 7.4 g/dL (6.6-8.7)
[2020-10-24 12:50] LABS: Lymphocytes # 158.7 10^3/uL (0.8-4.8); Slide Review Slide Review Perform; White Blood Count 190.6 10^3/uL (4.0-10.0)
== END 2020-10-24 11:37 | disposition home or self-care (01) ==
PROVIDERS: PCP Nurse Practitioner; Visit Provider Internal Medicine Hematology & Oncology
DX: C91.90 Lymphoid leukemia, unspecified not having achieved remission (principal); N40.0 Benign prostatic hyperplasia without lower urinary tract symptoms; R16.1 Splenomegaly, not elsewhere classified; K80.20 Calculus of gallbladder without cholecystitis without obstruction
CPT/HCPCS: 36415; 71260; 74177; 80053; 85025; Q9967

== ENCOUNTER 2020-10-28 13:09 | Outpatient (CLI) | payer MEDICARE, OTHER, SELFPAY ==
--- NOTE | 2020-10-28 13:44 | CT_ITS ---
WS: [id number] CT NECK WITH CONTRAST HISTORY: LYMPHOID LEUKEMIA TECHNIQUE: Contiguous 5 mm axial images are performed through the neck with intravenous contrast. Sag ittal and coronal reformats are also submitted. All CT scans at [facility] use at least o ne of these dose optimization techniques: automated exposure control; mA and/or kV adjustment per pat ient size (includes targeted exams where dose is matched to clinical indication); or iterative recons truction. CONTRAST: CONTRAST: Omnipaque 300; 95 mL IV. DLP: 1046.4 mGycm COMPARISON: None available. There is increased soft tissue in the LEFT vallecula extending into the pharyngeal epiglottic fold. A symmetric soft tissue measures 16 x 10 mm and is to the LEFT of midline. Torus tubarius and fossa of Rosenmuller and parapharyngeal fat are normal. There is extensive bilateral cervical chain lymphadenopathy. Bilateral cervical chain lymph nodes inv olving level 1, 2, 3, 4 and 5. Additional supraclavicular lymph nodes are identified. Lymph nodes ran ge in size from 10 mm to 22 mm. The largest lymph nodes appear to be at level 2 and level 3. Multiple supraclavicular lymph nodes are also identified. Axillary lymph nodes previously described on chest CT. Thyroid gland is enlarged. RIGHT thyroid is enlarged since extends substernal into the upper chest. M ultiple small ill-defined nodules are present bilaterally within each lobe. No submandibular gland ma ss. There are enhancing nodules within each parotid gland which are probably lymph nodes. The largest in the superficial LEFT parotid gland measures 9 mm. No osseous abnormalities. Visualized portions of the skull base demonstrate no abnormalities. Orbits and globes are within norm al limits. No soft tissue masses. Visualized paranasal sinuses and mastoid air cells are normal. Lung apices are clear. CT/CT neck w con* [id number] IMPRESSION: 1. Extensive bilateral cervical chain lymphadenopathy involving level 1 throug h 5, supraclavicular and axillary regions. Largest lymph nodes measure up to 22 mm. 2. Soft tissue thickening measuring 16 x 10 mm involving the LEFT vallecula an d pharyngeal epiglottic fold. Recommend direct visualization to exclude neoplas m. 3. Enlarged thyroid gland extends substernal. Most likely multinodular goiter. 4. Bilateral enhancing subcentimeter nodules within the parotid glands. Most l ikely lymph nodes.
[2020-10-28] MEDS: iohexol 300 mg/mL 100 mL Btl IV (14:13)
== END 2020-10-28 13:10 | disposition home or self-care (01) ==
PROVIDERS: PCP Nurse Practitioner; Visit Provider Internal Medicine Hematology & Oncology
DX: C91.10 Chronic lymphocytic leukemia of B-cell type not having achieved remission (principal)
CPT/HCPCS: 70491; Q9967

== ENCOUNTER 2020-11-07 05:37 | Outpatient (CLI) | payer MEDICARE, OTHER, SELFPAY ==
[2020-11-07 09:05] LABS: Hematocrit 40.7 % (42.0-52.0); Hemoglobin 11.8 g/dL (11.7-16.6); Mean Corpuscular Hemoglobin 30.9 pg (28.0-34.0); Mean Corpuscular Volume 106.5 fl (80-94); Mean Platelet Volume 10.6 fL (7.4-10.4); Platelet Count 157 10^3/cmm (130-400); Red Blood Count 3.82 10^6/uL (4.1-5.3); Red Cell Distribution Width 16.1 % (12.1-15.1)
[2020-11-07 09:33] LABS: Alanine Aminotransferase 10 U/L (0-41); Albumin Level 4.6 g/dL (3.5-5.2); Alkaline Phosphatase 110 IU/L (40-130); Aspartate Amino Transferase 20 U/L (0-40); Blood Urea Nitrogen 17 mg/dL (8-23); Calcium 9.4 mg/dL (8.5-10.5); Carbon Dioxide 27 mmol/L (22-29); Chloride 104 mmol/L (98-107); Globulin 2.9 g/dL (1.3-4.6); Glomerular Filtration Rate 73.9 mL/min (90-130); Glucose 93 mg/dL (65-115); Osmolality Calculated 291 mOsm/kg (285-295); Sodium 140 mmol/L (136-145); Total Bilirubin 0.4 mg/dL (0.15-1.2); Total Protein 7.5 g/dL (6.6-8.7)
[2020-11-07 10:01] LABS: Slide Review Slide Review Perform
[2020-11-07 10:04] LABS: Lymphocytes 82 %; Lymphocytes Absolute 215.4 10^3/cmm (1.2-3.4); Total Cells Counted 100 (0-100)
[2020-11-07 10:06] LABS: Eosinophils 0 %; Macrocytosis 1+; Platelet Estimate Normal (Normal); Segmented Neutrophils 0 %
[2020-11-07 10:07] LABS: White Blood Count 231.6 10^3/uL (4.0-10.0)
[2020-11-07 10:08] LABS: Blastocytes 7 % (0-0)
--- NOTE | 2020-11-08 09:32 | ONC FU_ITS ---
Dr. Plaza follow up note Patient: Lb Garcia Unit #: [id number]: [id number] Dicatated By: Rosanne Plaza M.D.Date of Visit:Nov 07, 2020 Onc Med Follow-up/Prog Note History of Present Illness: Mr. Garcia is a 70 -year-old gentleman with a past history of elevated white blood count. He reports that he had been having low-grade fever since February 2016. He presented initially with night sweats and was diagnosed with pneumonia. His white blood count on October 06, 2016 was reported at 32,000. His hemoglobin was 14.4 platelets 170,000 and his differential reported lymphocytes of 83.2% neutrophils 13.7% absolute lymphocyte count was 26,700. Follow-up CBC on 10/28/2016 reported a white count of 33,700 and differential showed lymphocytes and 78.5%. He remained on observation. F/u CT of the chest abdomen pelvis on 04/25/2018 and when compared with a CT scan of chest abdomen pelvis from 11/25/2016 there was very mild progression in size and number of axillary, mediastinal and hilar as well as pelvic adenopathy. The spleen size is 14.8 cm compared to 13.4 cm on 11/25/2016. Follow-up CT of the chest abdomen pelvis on 01/05/2019 reported stable bilateral axillary, mediastinal, right hilar lymphadenopathy with no evidence of progression. The splenomegaly he had marginally increased from 04/25/2018. Was noted that he had progressive pelvic lymphadenopathy with a lymph node increased from 1.1 to 1.5 cm and 1.3 to 1.7 cm in the left external iliac. The left internal iliac measured 1.8 compared to 1.4 cm. It was noted that he had a large prostate as well. He did have follow-up repeat CT scan of the chest abdomen pelvis on May 19, 2019 which showed axillary, mediastinal and hilar lymph nodes which were indeterminate with no interval change. The largest lymph node measured at the right hilum was 14 mm. The pelvic lymphadenopathy was without significant progression in size or number since January 05, 2019. There were numerous enlarged lymph nodes. Some measures slightly smaller in size other slightly larger in size which was felt to be due to technical variation. The largest lymph node was measured at 19 mm in the left ureter region. He had markedly enlarged prostate gland. This splenomegaly was at 16.5 cm. It was noted that he had cholelithiasis. Mr. Garcia was started on ibrutinib 420 mg daily along with allopurinol on June 02, 2019. Unfortunately the ibrutinib was discontinued on August 03, 2019 at which time he had called reporting episodes of palpitations lasting for a long time . The ibrutinib was stopped and he was referred to cardiology. He had no further palpitations after stopping the ibrutinib. Mr. Garcia was here for follow-up on September 13, 2019. He was having no significant symptoms but had persistent peripheral lymphadenopathy involving the neck and bilateral axilla and inguinal area. He had no headaches vision changes fever or chills. He had no night sweats or weight loss or any recurrent fever at that time. Had any abdominal fullness as well. He did have follow-up echocardiogram on August 28, 2019 which reported a left ventricular size and systolic ejection fraction of 60%. There was trace mitral valve regurgitation. He did have cardiac monitoring for 15 days he had had any report preliminary report per [employer] access reported baseline rhythm was found to be normal sinus with a rate of 61 bpm there was one episode of atrial fibrillation with rapid ventricular rate of 110 lasting for 2 minutes. He is followed with Dr. Murillo regarding the monitor. White count on the September 13, 2019 visit was noted to be 1 29,000. Previously on August 16 it was 235,000 and on May 21, 2019 was 303,000., was recommended to pursue systemic therapy with bendamustine Rituxan. He began his first cycle on September 13, 2019. His last treatment with Rituxan bendamustine was on November 072019. He was admitted to [facility] on 12/29/2019 and treated for severe COVID-19 infection-pneumonia: He required oxygen support in the hospital with groundglass opacities on chest x-ray and CT. He was pretreated with remdesivir, Decadron and empirically covered with antibiotics on presentation due to sepsis treated with Zosyn. Subsequently Primaxin and vancomycin was added as he did have neutropenia in the hospital with his ANC as low as 280. He did slowly recover and was discharged on January 10, 2020. He was readmitted to [facility] on January 23, 2020 with acute sepsis. He was admitted to the general medical floor???Covid unit started on broad-spectrum antibiotic therapy and monitor. His cultures were all unremarkable C. difficile was negative MRSA was negative urine bacterial antigens negative, stool studies negative, CMV unremarkable, influenza negative, parainfluenza negative, galactomannan pending SARS rapid positive on previous admission all cultures were negative this admission. He did have transaminitis, elevated alk phos and right upper quadrant pain in the right upper quadrant ultrasound was negative for cholecystitis. HIDA scan no evidence of acute or chronic cystitis, gallbladder ejection was around 90%. CT of the chest showed bilateral groundglass infiltrates areas of consolidation. At the time there was some concern that he may have had healthcare associated pneumonia he was continued on broad-spectrum antibiotics. He required up to 5 L nasal cannula no shortness of breath complaints no cough. He continued to have high-grade fevers despite being on broad spectrum antibiotics for 72 hours. After discussion with with infectious disease, thought was the patient could have continued COVID-19 infection, thus rems does a fair and Decadron were restarted. For the next 48 hours the patient remained asymptomatic and remained afebrile for the next 48 hours. However he started to develop anemia with his hemoglobin is 7.7 neutropenia at 530 and thrombocytopenia with platelets as low as 90,000. After discussions with infectious disease , thought that Mr. Garcia could be suffering bone marrow suppression from the remdesivir or the COVID-19 or the antibiotics. The broad-spectrum antibiotics were deescalated to azithromycin and Levaquin that remdesivir was stopped Decadron was stopped. He received 1 unit packed red blood cells and Neupogen x2. Attempt was made to refer him to [facility] but his counts begin to recover and he began to improve and therefore the transfer was canceled. Mr. Garcia was discharged on January 23, 2020., As per patient , he was on home oxygen and wheelchair due to deconditioning for 2-1/2 months After discharge from hospital in January 2020, and then with the help of physical therapy he started recovering slowly but gradually and was following his PMD on regular basis and during follow-up in July 2020 his white blood count gone up to 80,000 and last week he got up to 186,000 and he also noticed progressive lymphadenopathy in the neck for which his PMD gave him oral antibiotic without much improvement. Patient denies any night sweats, denies any recurrent fever denies any weight loss rather weight gain, off and on abdominal fullness/bloatedness. Also complaining of left axillary lymphadenopathy. No headaches, no blurred vision or double vision, no shortness of breath at rest but dyspnea on exertion as per patient he is on Eliquis for chronic A. 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 Follow-up CT scan of neck chest abdomen pelvis done on October 28, 2020 showed extensive bilateral cervical chain lymphadenopathy involving level 1 through 5 and supraclavicular and axillary regions, largest lymph node measured up to 22 mm. Soft tissue thickening measuring 16 x 10 mm involving left vallecula and pharyngeal epiglottic fold enlarged thyroid gland extending substernal, most likely multinodular goiter. Bilateral enhancing subcentimeter nodules with within parotid gland most likely lymph nodes and CT scan of the chest showed significant increase in size of bilateral axillary and left supraclavicular lymph nodes and mediastinum and hilar region remains stable since January 17, 2020. Significant increase in size and number of lymph nodes along the iliac chains bilaterally extending into obturator and inguinal region. Marked prostate gland enlargement, splenomegaly, spleen measures 16.2 cm compared to 13.3 cm on prior study. Cholelithiasis without acute cholecystitis. Came for follow-up, complaining of generalized weakness and fatigue but no dysphagia, no abdominal pain or fullness, no night sweats, no recurrent fever but weight loss, also complaining of fullness in bilateral axilla, no voice change, no hemoptysis or hematemesis, no melena or hematochezia, no jaundice. . Medications: AmLODIPine Besylate 1 Tablet (of 10 mg) Oral daily, Apixaban (5 mg) Tablet Oral b.i.d., Aspirin 1 Tablet (of 81 mg) Tablet, enteric coated Oral daily, Finasteride 1 Tablet (of 5 mg) Oral daily, Furosemide 1 Tablet (of 20 mg) Oral daily, Lisinopril 1 Tablet (of 20 mg) Oral daily, Lovastatin ER 1 Tablet (of 40 mg) Tablet SR 24 HR Oral daily, Metoprolol Tartrate (25 mg) Tablet Oral b.i.d. Allergies: No Known Allergies. Review of Systems: Review of Systems is not available for this patient. Vital Signs: Performed on Nov 07, 2020 10:19 Height - 69.50 in Weight - 220.6 lbs (HIGH) BSA - 2.16 sq.m BMI - 32.11 (HIGH) Temperature - 97.0 F (LOW) Pulse - 60 /min Respiration - 17 /min BP - 115/72 mm(hg) O2 Sat - 95 % (LOW) Pain - 0 Performance Status: 0 - Fully active, able to carry on all predisease activities without restrictions. (ECOG) Physical Examination: ENMT - No mouth sores no thrush, no jaundice, bilateral cervical and supraclavicular lymphadenopathy, Respiratory - Lungs are clear to auscultation, Cardiovascular - Regular rate and rhythm of heart, Abdomen - Soft, bowel sounds present, Extremities - No visible edema. Lab/Imaging: Most recent lab results are not available for this patient. 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 Discussed with patient regarding his CT scan finding and lab workup. His white blood count is elevated due to lymphocytosis at 48.7 with a normal hemoglobin and hematocrit as well as platelets No evidence of peripheral lymphadenopathy or central lymphadenopathy except mild lymphadenopathy in pelvis maximum size 1.3 [address] scan of pelvis on 06/07/2009 it was 0.8 cm. Incidental finding, large thyroid goiter causing impingement on trachea and esophagus at the cervicothoracic junction the vast majority of monotypic B cells express CD38 next CLL panel, FISH showed positive for deletion of TP53 (unfavorable prognosis and chemotherapy resistance) And IGHV status shows non-mutation e.g. poor prognostic features Quantitative immunoglobulins checked on 11/04/2016 showed IgG 1100 normal being 700-1600 IgM 53 normal being 40-230 IgA 150 normal being 70-400 Beta-2 microglobulin 0.230 normal being 0.109 -0.253 CT scan of chest abdomen pelvis done on 11/25/2016 showed bilateral lower lobe parenchymal scarring with bilateral lower lobe bronchiectasis segment similar to 06/07/2009. Thyroid goiter with tracheal and esophageal impingements at cervicothoracic junction. Nonspecific right hilar lymph nodes no enlarged or pathological lymphadenopathy seen. Mild iliac region lymph nodes enlargements since 06/07/2009 Size about 1.3 cm. mild splenomegaly Repeat sonogram of abdomen On 12/20/2017 shows mild splenomegaly now 12.9 cm compared to 13.2 cm on 03/02/2017 On 02/09/2018 patient was evaluated by Dr. Alvarenga technology advisor at [facility] and his labs done there showed white blood count 198.7 hemoglobin 13.4 hematocrit 34.4 platelets 188,000 IgA 100, IgM 43, IgG 889, SPEP no monoclonal peak, serum light chains showed kappa 2.44, lambda 2.9, kappa/lambda ratio 0.84 which was normal. And his recommendations were serial CT scan of chest abdomen pelvis once a year or sooner if needed. And continue to monitor CBC unless white blood count more than 200,000 as it may be associated with hyperviscosity and treatment options if decided to treat his recommendation was short course of bendamustine/Rituxan up to 4 cycles to achieve an initial response followed by ibrutinib maintenance. CT scan of chest abdomen pelvis done on 04/25/2018 showed very mild progression in the size and number of axillary, just tunnel, hilar and pelvic lymphadenopathy since 11/25/2016 Mild increase in size of spleen since 11/25/2016, now 14.8 cm compared to 13.4 before.Treated with ibrutinib for progressive CLL/SLL,,Started on 420 mg daily along with allopurinol on June 02, 2019 , which was eventually discontinued on August 03, 2019 because of episode of palpitation causing lightheadedness dizziness which improved after stopping ibrutinib, patient was referred to cardiology and eventually was diagnosed with A. fib which was medically managed and was started on Eliquis also but due to progressive disease he was started on bendamustine/Rituxan on September 13, 2019, patient responded well after third cycle which was given on November 08, 2019 his white blood count went down to 17.9 from 290,000 prior to the BR regimen, and resolution of peripheral lymphadenopathy, subsequently patient developed Covid infection for which he was admitted to hospital and patient did not receive further treatment after last dose of bendamustine/Rituxan on November 07 and 2019 Covid infection requiring hospitalization for 20 days but was not intubated but required oxygen and was discharged home on oxygen in November 2019 Severe prostrate gland enlargement CT scan of neck chest abdomen pellvis done on October 28, 2020 showed extensive bilateral cervical chain lymphadenopathy involving level 1 through 5 and supraclavicular and axillary regions, largest lymph node measured up to 22 mm. Soft tissue thickening measuring 16 x 10 mm involving left vallecula and pharyngeal epiglottic fold enlarged thyroid gland extending substernal, most likely multinodular goiter. Bilateral enhancing subcentimeter nodules with within parotid gland most likely lymph nodes and CT scan of the chest showed significant increase in size of bilateral axillary and left supraclavicular lymph nodes and mediastinum and hilar region remains stable since January 17, 2020. Significant increase in size and number of lymph nodes along the iliac chains bilaterally extending into obturator and inguinal region. Marked prostate gland enlargement, splenomegaly, spleen measures 16.2 cm compared to 13.3 cm on prior study. Cholelithiasis without acute cholecystitis. Plan: Discussed with patient regarding his labs white blood count 231.6 hemoglobin 11.8 hematocrit 40.7 platelets 157,000 CMP within normal limits CT scan of neck chest abdomen pellvis done on October 28, 2020 showed extensive bilateral cervical chain lymphadenopathy involving level 1 through 5 and supraclavicular and axillary regions, largest lymph node measured up to 22 mm. Soft tissue thickening measuring 16 x 10 mm involving left vallecula and pharyngeal epiglottic fold enlarged thyroid gland extending substernal, most likely multinodular goiter. Bilateral enhancing subcentimeter nodules with within parotid gland most likely lymph nodes and CT scan of the chest showed significant increase in size of bilateral axillary and left supraclavicular lymph nodes and mediastinum and hilar region remains stable since January 17, 2020. Significant increase in size and number of lymph nodes along the iliac chains bilaterally extending into obturator and inguinal region. Marked prostate gland enlargement, splenomegaly, spleen measures 16.2 cm compared to 13.3 cm on prior study. Cholelithiasis without acute cholecystitis. Clinically, patient is symptomatic from progressive CLL, now with progressive generalized weakness and fatigue CBC shows progressive lymphocytosis/lymphocytosis and CT scan of neck, chest abdomen pelvis shows progressive lymphadenopathy and splenomegaly, earlier patient was treated with ibrutinib but developed cardiac arrhythmia so it was discontinued and now we will consider systemic therapy with venetoclax and Rituxan, start with 5-week ramp-up dose schedule starting with 20 mg p.o. daily for 1 week followed by 50 mg p.o. daily in second week then 100 mg p.o. daily in week 3 and 200 mg p.o. daily in 1 week for and 400 mg p.o. daily in week 5 and at the end of week 5 we will consider starting Rituxan 375 mg/m??? every 28 days x 6 doses while continue with venetoclax 400 mg p.o. daily for total of 24 months from day 1 of Rituxan. All the side effect possible benefits associated with venetoclax and Rituxan, including but not limited to bone marrow suppression, thus increased risk for infections, nausea vomiting, tumor lysis, nausea, cough, muscle and joint pain, generalized weakness and fatigue, possible fluid retention or diarrhea, allergic reaction specially with Rituxan., We will check a uric acid level if it is elevated, will consider rasburicase, otherwise allopurinol. Patient was advised to maintain hydration and will monitor him closely for tumor lysis syndrome., Will obtain approval from his insurance prior to the treatment and then patient return to clinic 1 week after initiation venetoclax with CBC CMP and uric acid, phosphorous. Patient was advised to drink 6 to 8 glasses of water daily also consider antibiotic prophylaxis CT scan of neck showed soft tissue thickening involving left vallecula, will consider referral to ENT for evaluation Signed By: Rosanne Plaza M.D. <<Signature on File>>
== END 2020-11-07 05:38 | disposition home or self-care (01) ==
PROVIDERS: PCP Nurse Practitioner; Visit Provider Internal Medicine Hematology & Oncology
DX: C91.10 Chronic lymphocytic leukemia of B-cell type not having achieved remission (principal); Z79.899 Other long term (current) drug therapy
CPT/HCPCS: 36415; 80053; 84550; 85007; 85025; 99214

== ENCOUNTER 2020-11-26 11:29 | Outpatient (CLI) | payer MEDICARE, OTHER, SELFPAY ==
[2020-11-26 12:17] LABS: Hematocrit 39.3 % (42.0-52.0); Hemoglobin 11.3 g/dL (11.7-16.6); Mean Corpuscular HGB Conc 28.8 g/dL (30.0-36.0); Mean Corpuscular Hemoglobin 30.8 pg (28.0-34.0); Mean Corpuscular Volume 107.1 fl (80-94); Mean Platelet Volume 10.3 fL (7.4-10.4); Platelet Count 133 10^3/cmm (130-400); Red Blood Count 3.67 10^6/uL (4.1-5.3); Red Cell Distribution Width 16.9 % (12.1-15.1)
[2020-11-26 12:42] LABS: Alanine Aminotransferase 11 U/L (0-41); Albumin Level 4.5 g/dL (3.5-5.2); Alkaline Phosphatase 92 IU/L (40-130); Anion Gap 14.2 (5-19); Aspartate Amino Transferase 23 U/L (0-40); Carbon Dioxide 24 mmol/L (22-29); Chloride 103 mmol/L (98-107); Globulin 2.8 g/dL (1.3-4.6); Glucose 106 mg/dL (65-115); Potassium 4.2 mmol/L (3.5-5.1); Sodium 137 mmol/L (136-145); Total Bilirubin 0.5 mg/dL (0.15-1.2); Total Protein 7.3 g/dL (6.6-8.7)
[2020-11-26 13:07] LABS: Blood Urea Nitrogen 18 mg/dL (8-23); Calcium 9.2 mg/dL (8.5-10.5); Glomerular Filtration Rate 83.4 mL/min (90-130); Osmolality Calculated 286 mOsm/kg (285-295)
[2020-11-26 13:10] LABS: White Blood Count 250.1 10^3/uL (4.0-10.0)
[2020-11-26 13:11] LABS: Total Cells Counted 100 (0-100)
[2020-11-26 13:12] LABS: Absolute Eosinophils 2.5 10^3/cmm (0.0-0.7); Eosinophils 1 %; Lymphocytes 71 %; Lymphocytes Absolute 192.6 10^3/cmm (1.2-3.4)
[2020-11-26 13:13] LABS: Anisocytosis Trace; Hypochromasia Trace; Platelet Estimate Decreased (Normal)
[2020-11-26 13:14] LABS: Macrocytosis 1+; Smudge Cells 3+
== END 2020-11-26 11:30 | disposition home or self-care (01) ==
PROVIDERS: PCP Nurse Practitioner; Visit Provider Internal Medicine Hematology & Oncology
DX: C91.10 Chronic lymphocytic leukemia of B-cell type not having achieved remission (principal)
CPT/HCPCS: 36415; 80053; 85007; 85025

== ENCOUNTER 2020-12-05 06:23 | Outpatient (RCR) | payer MEDICARE, OTHER, SELFPAY ==
[2020-11-27] MEDS: sodium chloride 0.9% 1,000 ML 999 ML IV (14:25)
[2020-11-27 14:52] LABS: Basophils # 0.1 10^3/uL (0.0-0.1); Eosinophils # 0.2 10^3/uL (0.0-0.8); Eosinophils % 0.1 %; Hematocrit 38.2 % (42.0-52.0); Hemoglobin 11.4 g/dL (11.7-16.6); Lymphocytes % 81.9 %; Mean Corpuscular HGB Conc 29.8 g/dL (30.0-36.0); Mean Corpuscular Hemoglobin 31.6 pg (28.0-34.0); Mean Corpuscular Volume 105.8 fl (80-94); Mean Platelet Volume 10.5 fL (7.4-10.4); Monocytes % 17.2 %; Neutrophils # 1.51 10^3/uL (1.8-7.7); Neutrophils % 0.7 %; Nucleated Red Blood Cells % 0 %; Platelet Count 136 10^3/cmm (130-400); Red Blood Count 3.61 10^6/uL (4.1-5.3); Red Cell Distribution Width 16.2 % (12.1-15.1)
[2020-11-27 15:24] LABS: Alanine Aminotransferase 11 U/L (0-41); Albumin Level 4.5 g/dL (3.5-5.2); Alkaline Phosphatase 106 IU/L (40-130); Anion Gap 17.8 (5-19); Aspartate Amino Transferase 28 U/L (0-40); Blood Urea Nitrogen 18 mg/dL (8-23); Calcium 9.1 mg/dL (8.5-10.5); Carbon Dioxide 24 mmol/L (22-29); Chloride 105 mmol/L (98-107); Globulin 2.6 g/dL (1.3-4.6); Glomerular Filtration Rate 95.6 mL/min (90-130); Glucose 113 mg/dL (65-115); Osmolality Calculated 299 mOsm/kg (285-295); Potassium 3.8 mmol/L (3.5-5.1); Sodium 143 mmol/L (136-145); Total Bilirubin 0.3 mg/dL (0.15-1.2); Total Protein 7.1 g/dL (6.6-8.7)
[2020-11-27 16:30] LABS: Slide Review Slide Review Perform
[2020-11-29] MEDS: sodium chloride 0.9% 1,000 ML 999 ML IV (10:18)
[2020-11-30 10:00] VITALS: BP 135/76; PULSE 62; RESP 18; TEMP 36.7; O2SAT 98; BMI 31.5
--- NOTE | 2020-11-30 10:48 | PC.NURSE ---
11/30/20 10:27 - spoke with Dr. Padilla at patients request to leave iv in place for hydration tomorrow. Dr Padilla gave permission to leave iv in place
[2020-11-30] MEDS: sodium chloride 0.9% 1,000 ML 999 ML IV (11:03)
[2020-11-30 11:30] VITALS: BP 132/72; PULSE 62; RESP 18; TEMP 36.6; O2SAT 98
[2020-12-01] MEDS: sodium chloride 0.9% 1,000 ML 999 ML IV (10:18)
[2020-12-01 10:22] VITALS: BP 136/74; PULSE 65; RESP 18; TEMP 36.6; O2SAT 99
[2020-12-02] MEDS: sodium chloride 0.9% 1,000 ML 999 ML IV (13:18)
[2020-12-03] MEDS: sodium chloride 0.9% 1,000 ML 999 ML IV (13:14)
[2020-12-03 13:31] LABS: Basophils # 0.2 10^3/uL (0.0-0.1); Basophils % 0.1 %; Eosinophils # 0.2 10^3/uL (0.0-0.8); Eosinophils % 0.1 %; Hematocrit 36.4 % (42.0-52.0); Lymphocytes % 87.6 %; Mean Corpuscular HGB Conc 30.2 g/dL (30.0-36.0); Mean Corpuscular Volume 105.8 fl (80-94); Mean Platelet Volume 10.6 fL (7.4-10.4); Monocytes # 22.5 10^3/uL (0.2-0.9); Monocytes % 11.4 %; Neutrophils # 1.48 10^3/uL (1.8-7.7); Neutrophils % 0.7 %; Nucleated Red Blood Cells % 0 %; Platelet Count 130 10^3/cmm (130-400); Red Blood Count 3.44 10^6/uL (4.1-5.3); Red Cell Distribution Width 16.1 % (12.1-15.1)
[2020-12-03 13:57] LABS: Lymphocytes # 171.8 10^3/uL (0.8-4.8)
[2020-12-03 13:58] LABS: White Blood Count 196.2 10^3/uL (4.0-10.0)
[2020-12-03 14:00] LABS: Slide Review Slide Review Perform
[2020-12-03 14:02] LABS: Alanine Aminotransferase 11 U/L (0-41); Albumin Level 4.3 g/dL (3.5-5.2); Alkaline Phosphatase 95 IU/L (40-130); Anion Gap 14.1 (5-19); Aspartate Amino Transferase 18 U/L (0-40); Blood Urea Nitrogen 15 mg/dL (8-23); Calcium 9.2 mg/dL (8.5-10.5); Carbon Dioxide 26 mmol/L (22-29); Chloride 101 mmol/L (98-107); Creatinine Clr Calc Pharmacy 81.3906; Globulin 2.9 g/dL (1.3-4.6); Glomerular Filtration Rate 73.9 mL/min (90-130); Glucose 122 mg/dL (65-115); Osmolality Calculated 286 mOsm/kg (285-295); Phosphorus 3.9 mg/dL (2.5-4.5); Potassium 4.1 mmol/L (3.5-5.1); Sodium 137 mmol/L (136-145); Total Bilirubin 0.4 mg/dL (0.15-1.2); Total Protein 7.2 g/dL (6.6-8.7)
--- NOTE | 2020-12-03 17:23 | ONC FU_ITS ---
Dr. Plaza follow up note Patient: Lb Garcia Unit #: [id number]: 1950 Dicatated By: Rosanne Plaza M.D.Date of Visit:Dec 03, 2020 Onc Med Follow-up/Prog Note History of Present Illness: Mr. Garcia is a 70 -year-old gentleman with a past history of elevated white blood count. He reports that he had been having low-grade fever since February 2016. He presented initially with night sweats and was diagnosed with pneumonia. His white blood count on October 06, 2016 was reported at 32,000. His hemoglobin was 14.4 platelets 170,000 and his differential reported lymphocytes of 83.2% neutrophils 13.7% absolute lymphocyte count was 26,700. Follow-up CBC on 10/28/2016 reported a white count of 33,700 and differential showed lymphocytes and 78.5%. He remained on observation. F/u CT of the chest abdomen pelvis on 04/25/2018 and when compared with a CT scan of chest abdomen pelvis from 11/25/2016 there was very mild progression in size and number of axillary, mediastinal and hilar as well as pelvic adenopathy. The spleen size is 14.8 cm compared to 13.4 cm on 11/25/2016. Follow-up CT of the chest abdomen pelvis on 01/05/2019 reported stable bilateral axillary, mediastinal, right hilar lymphadenopathy with no evidence of progression. The splenomegaly he had marginally increased from 04/25/2018. Was noted that he had progressive pelvic lymphadenopathy with a lymph node increased from 1.1 to 1.5 cm and 1.3 to 1.7 cm in the left external iliac. The left internal iliac measured 1.8 compared to 1.4 cm. It was noted that he had a large prostate as well. He did have follow-up repeat CT scan of the chest abdomen pelvis on May 19, 2019 which showed axillary, mediastinal and hilar lymph nodes which were indeterminate with no interval change. The largest lymph node measured at the right hilum was 14 mm. The pelvic lymphadenopathy was without significant progression in size or number since January 05, 2019. There were numerous enlarged lymph nodes. Some measures slightly smaller in size other slightly larger in size which was felt to be due to technical variation. The largest lymph node was measured at 19 mm in the left ureter region. He had markedly enlarged prostate gland. This splenomegaly was at 16.5 cm. It was noted that he had cholelithiasis. Mr. Garcia was started on ibrutinib 420 mg daily along with allopurinol on June 02, 2019. Unfortunately the ibrutinib was discontinued on August 03, 2019 at which time he had called reporting episodes of palpitations lasting for a long time . The ibrutinib was stopped and he was referred to cardiology. He had no further palpitations after stopping the ibrutinib. Mr. Garcia was here for follow-up on September 13, 2019. He was having no significant symptoms but had persistent peripheral lymphadenopathy involving the neck and bilateral axilla and inguinal area. He had no headaches vision changes fever or chills. He had no night sweats or weight loss or any recurrent fever at that time. Had any abdominal fullness as well. He did have follow-up echocardiogram on August 28, 2019 which reported a left ventricular size and systolic ejection fraction of 60%. There was trace mitral valve regurgitation. He did have cardiac monitoring for 15 days he had had any report preliminary report per [employer] access reported baseline rhythm was found to be normal sinus with a rate of 61 bpm there was one episode of atrial fibrillation with rapid ventricular rate of 110 lasting for 2 minutes. He is followed with Dr. Murillo regarding the monitor. White count on the September 13, 2019 visit was noted to be 1 29,000. Previously on August 16 it was 235,000 and on May 21, 2019 was 303,000., was recommended to pursue systemic therapy with bendamustine Rituxan. He began his first cycle on September 13, 2019. His last treatment with Rituxan bendamustine was on November 072019. He was admitted to [facility] on 12/29/2019 and treated for severe COVID-19 infection-pneumonia: He required oxygen support in the hospital with groundglass opacities on chest x-ray and CT. He was pretreated with remdesivir, Decadron and empirically covered with antibiotics on presentation due to sepsis treated with Zosyn. Subsequently Primaxin and vancomycin was added as he did have neutropenia in the hospital with his ANC as low as 280. He did slowly recover and was discharged on January 10, 2020. He was readmitted to [facility] on January 23, 2020 with acute sepsis. He was admitted to the general medical floor???Covid unit started on broad-spectrum antibiotic therapy and monitor. His cultures were all unremarkable C. difficile was negative MRSA was negative urine bacterial antigens negative, stool studies negative, CMV unremarkable, influenza negative, parainfluenza negative, galactomannan pending SARS rapid positive on previous admission all cultures were negative this admission. He did have transaminitis, elevated alk phos and right upper quadrant pain in the right upper quadrant ultrasound was negative for cholecystitis. HIDA scan no evidence of acute or chronic cystitis, gallbladder ejection was around 90%. CT of the chest showed bilateral groundglass infiltrates areas of consolidation. At the time there was some concern that he may have had healthcare associated pneumonia he was continued on broad-spectrum antibiotics. He required up to 5 L nasal cannula no shortness of breath complaints no cough. He continued to have high-grade fevers despite being on broad spectrum antibiotics for 72 hours. After discussion with with infectious disease, thought was the patient could have continued COVID-19 infection, thus rems does a fair and Decadron were restarted. For the next 48 hours the patient remained asymptomatic and remained afebrile for the next 48 hours. However he started to develop anemia with his hemoglobin is 7.7 neutropenia at 530 and thrombocytopenia with platelets as low as 90,000. After discussions with infectious disease , thought that Mr. Garcia could be suffering bone marrow suppression from the remdesivir or the COVID-19 or the antibiotics. The broad-spectrum antibiotics were deescalated to azithromycin and Levaquin that remdesivir was stopped Decadron was stopped. He received 1 unit packed red blood cells and Neupogen x2. Attempt was made to refer him to [facility] but his counts begin to recover and he began to improve and therefore the transfer was canceled. Mr. Garcia was discharged on January 23, 2020., As per patient , he was on home oxygen and wheelchair due to deconditioning for 2-1/2 months After discharge from hospital in January 2020, and then with the help of physical therapy he started recovering slowly but gradually and was following his PMD on regular basis and during follow-up in July 2020 his white blood count gone up to 80,000 and last week he got up to 186,000 and he also noticed progressive lymphadenopathy in the neck for which his PMD gave him oral antibiotic without much improvement. Patient denies any night sweats, denies any recurrent fever denies any weight loss rather weight gain, off and on abdominal fullness/bloatedness. Also complaining of left axillary lymphadenopathy. No headaches, no blurred vision or double vision, no shortness of breath at rest but dyspnea on exertion as per patient he is on Eliquis for chronic A. 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 Follow-up CT scan of neck chest abdomen pelvis done on October 28, 2020 showed extensive bilateral cervical chain lymphadenopathy involving level 1 through 5 and supraclavicular and axillary regions, largest lymph node measured up to 22 mm. Soft tissue thickening measuring 16 x 10 mm involving left vallecula and pharyngeal epiglottic fold enlarged thyroid gland extending substernal, most likely multinodular goiter. Bilateral enhancing subcentimeter nodules with within parotid gland most likely lymph nodes and CT scan of the chest showed significant increase in size of bilateral axillary and left supraclavicular lymph nodes and mediastinum and hilar region remains stable since January 17, 2020. Significant increase in size and number of lymph nodes along the iliac chains bilaterally extending into obturator and inguinal region. Marked prostate gland enlargement, splenomegaly, spleen measures 16.2 cm compared to 13.3 cm on prior study. Cholelithiasis without acute cholecystitis. Came for follow-up, denies any specific complaints, no fever chills, no nausea or vomiting, no diarrhea constipation, patient is tolerating venetoclax well, tomorrow he will start his second week ramp-up dose. Tolerating well . Medications: AmLODIPine Besylate 1 Tablet (of 10 mg) Oral daily, Apixaban (5 mg) Tablet Oral b.i.d., Aspirin 1 Tablet (of 81 mg) Tablet, enteric coated Oral daily, Finasteride 1 Tablet (of 5 mg) Oral daily, Furosemide 1 Tablet (of 20 mg) Oral daily, Lisinopril 1 Tablet (of 20 mg) Oral daily, Lovastatin ER 1 Tablet (of 40 mg) Tablet SR 24 HR Oral daily, Metoprolol Tartrate (25 mg) Tablet Oral b.i.d. Allergies: No Known Allergies. Review of Systems: Review of Systems is not available for this patient. Vital Signs: Performed on Dec 03, 2020 17:15 Height - 69.50 in Weight - 226.2 lbs (HIGH) BSA - 2.19 sq.m BMI - 32.93 (HIGH) Temperature - 98.1 F (LOW) Pulse - 62 /min Respiration - 18 /min BP - 129/77 mm(hg) O2 Sat - 96 % Pain - 0 Fatigue - 0 Performance Status: 0 - Fully active, able to carry on all predisease activities without restrictions. (ECOG) Physical Examination: ENMT - No mouth sores, no thrush, no jaundice but bilateral cervical/supraclavicular lymphadenopathy, Respiratory - Lungs are clear to auscultation, Cardiovascular - Regular rate and rhythm of heart, Abdomen - Soft, bowel sounds present, Extremities - No visible edema. Lab/Imaging: Most recent lab results are not available for this patient. 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 Discussed with patient regarding his CT scan finding and lab workup. His white blood count is elevated due to lymphocytosis at 48.7 with a normal hemoglobin and hematocrit as well as platelets No evidence of peripheral lymphadenopathy or central lymphadenopathy except mild lymphadenopathy in pelvis maximum size 1.3 [address] scan of pelvis on 06/07/2009 it was 0.8 cm. Incidental finding, large thyroid goiter causing impingement on trachea and esophagus at the cervicothoracic junction the vast majority of monotypic B cells express CD38 next CLL panel, FISH showed positive for deletion of TP53 (unfavorable prognosis and chemotherapy resistance) And IGHV status shows non-mutation e.g. poor prognostic features Quantitative immunoglobulins checked on 11/04/2016 showed IgG 1100 normal being 700-1600 IgM 53 normal being 40-230 IgA 150 normal being 70-400 Beta-2 microglobulin 0.230 normal being 0.109 -0.253 CT scan of chest abdomen pelvis done on 11/25/2016 showed bilateral lower lobe parenchymal scarring with bilateral lower lobe bronchiectasis segment similar to 06/07/2009. Thyroid goiter with tracheal and esophageal impingements at cervicothoracic junction. Nonspecific right hilar lymph nodes no enlarged or pathological lymphadenopathy seen. Mild iliac region lymph nodes enlargements since 06/07/2009 Size about 1.3 cm. mild splenomegaly Repeat sonogram of abdomen On 12/20/2017 shows mild splenomegaly now 12.9 cm compared to 13.2 cm on 03/02/2017 On 02/09/2018 patient was evaluated by Dr. 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 And his recommendations were serial CT scan of chest abdomen pelvis once a year or sooner if needed. And continue to monitor CBC unless white blood count more than 200,000 as it may be associated with hyperviscosity and treatment options if decided to treat his recommendation was short course of bendamustine/Rituxan up to 4 cycles to achieve an initial response followed by ibrutinib maintenance. CT scan of chest abdomen pelvis done on 04/25/2018 showed very mild progression in the size and number of axillary, just tunnel, hilar and pelvic lymphadenopathy since 11/25/2016 Mild increase in size of spleen since 11/25/2016, now 14.8 cm compared to 13.4 before.Treated with ibrutinib for progressive CLL/SLL,,Started on 420 mg daily along with allopurinol on June 02, 2019 , which was eventually discontinued on August 03, 2019 because of episode of palpitation causing lightheadedness dizziness which improved after stopping ibrutinib, patient was referred to cardiology and eventually was diagnosed with A. fib which was medically managed and was started on Eliquis also but due to progressive disease he was started on bendamustine/Rituxan on September 13, 2019, patient responded well after third cycle which was given on November 08, 2019 his white blood count went down to 17.9 from 290,000 prior to the BR regimen, and resolution of peripheral lymphadenopathy, subsequently patient developed Covid infection for which he was admitted to hospital and patient did not receive further treatment after last dose of bendamustine/Rituxan on November 07 and 2019 Covid infection requiring hospitalization for 20 days but was not intubated but required oxygen and was discharged home on oxygen in November 2019 Severe prostrate gland enlargement Plan: Discussed with patient regarding his labs white blood count 196,000 compared to 232,000 last week, hemoglobin 11 hematocrit 36.4 platelets 130,000 CMP within normal limits Clinically, patient doing well with no new signs symptoms, tolerating venetoclax 20 mg p.o. daily well, tomorrow he will starting week 2 ramp-up dose to 50 mg p.o. daily for 1 week, his electrolytes is within normal range there is no signs symptom suggestive of tumor lysis, will continue with daily hydration and patient will continue with prophylactic anti-infective and allopurinol the return to clinic in 1 week with CBC CMP Signed By: Rosanne Plaza M.D. <<Signature on File>>
[2020-12-04] MEDS: sodium chloride 0.9% 1,000 ML 999 ML IV (16:02)
== END 2020-12-05 23:59 | disposition home or self-care (01) ==
LOC: ONCMED 06:23
PROVIDERS: PCP Nurse Practitioner; Visit Provider Internal Medicine Hematology & Oncology
DX: C91.10 Chronic lymphocytic leukemia of B-cell type not having achieved remission (principal); E04.1 Nontoxic single thyroid nodule; R16.1 Splenomegaly, not elsewhere classified; N40.0 Benign prostatic hyperplasia without lower urinary tract symptoms; Z79.899 Other long term (current) drug therapy; Z92.21 Personal history of antineoplastic chemotherapy
CPT/HCPCS: 80053; 84100; 84550; 85025; 96360; 96361; 99214; J7030

== ENCOUNTER 2020-12-19 06:21 | Outpatient (RCR) | payer MEDICARE, OTHER, SELFPAY ==
[2020-12-06] MEDS: sodium chloride 0.9% 1,000 ML 999 ML IV (10:30)
[2020-12-11 09:25] LABS: Hematocrit 38.3 % (42.0-52.0); Hemoglobin 11.6 g/dL (11.7-16.6); Mean Corpuscular HGB Conc 30.3 g/dL (30.0-36.0); Mean Corpuscular Hemoglobin 32.4 pg (28.0-34.0); Mean Platelet Volume 10.6 fL (7.4-10.4); Platelet Count 140 10^3/cmm (130-400); Red Blood Count 3.58 10^6/uL (4.1-5.3); Red Cell Distribution Width 16.4 % (12.1-15.1)
[2020-12-11 10:37] LABS: White Blood Count 151.9 10^3/uL (4.0-10.0)
[2020-12-11 10:38] LABS: Slide Review Slide Review Perform
[2020-12-11 10:39] LABS: Absolute Neutrophil 6.1 10^3/cmm (1.4-6.5); Absolute Segmented Neutrophil 6.1 10/cmm (1.6-7.1); Eosinophils 0 %; Lymphocytes 95 %; Lymphocytes Absolute 144.3 10^3/cmm (1.2-3.4); Monocytes Absolute 1.5 10^3/cmm (0.1-0.6); Platelet Estimate Decreased (Normal); Segmented Neutrophils 4 %
[2020-12-11 10:40] LABS: Total Cells Counted 100 (0-100)
[2020-12-11 11:29] LABS: Alanine Aminotransferase 11 U/L (0-41); Anion Gap 16.3 (5-19); Aspartate Amino Transferase 20 U/L (0-40); Blood Urea Nitrogen 14 mg/dL (8-23); Calcium 9.2 mg/dL (8.5-10.5); Carbon Dioxide 23 mmol/L (22-29); Glomerular Filtration Rate 83.4 mL/min (90-130); Glucose 125 mg/dL (65-115); Osmolality Calculated 286 mOsm/kg (285-295); Total Bilirubin 0.5 mg/dL (0.15-1.2); Total Protein 7.4 g/dL (6.6-8.7)
[2020-12-11 11:30] LABS: Albumin Level 4.4 g/dL (3.5-5.2); Alkaline Phosphatase 85 IU/L (40-130); Chloride 102 mmol/L (98-107); Potassium 4.3 mmol/L (3.5-5.1); Sodium 137 mmol/L (136-145)
--- NOTE | 2020-12-12 08:50 | ONC FU_ITS ---
Dr. Plaza follow up note Patient: Lb Garcia Unit #: [id number]: [id number] Dicatated By: Rosanne Plaza M.D.Date of Visit:Dec 11, 2020 Onc Med Follow-up/Prog Note History of Present Illness: Mr. Garcia is a 70 -year-old gentleman with a past history of elevated white blood count. He reports that he had been having low-grade fever since February 2016. He presented initially with night sweats and was diagnosed with pneumonia. His white blood count on October 06, 2016 was reported at 32,000. His hemoglobin was 14.4 platelets 170,000 and his differential reported lymphocytes of 83.2% neutrophils 13.7% absolute lymphocyte count was 26,700. Follow-up CBC on 10/28/2016 reported a white count of 33,700 and differential showed lymphocytes and 78.5%. He remained on observation. F/u CT of the chest abdomen pelvis on 04/25/2018 and when compared with a CT scan of chest abdomen pelvis from 11/25/2016 there was very mild progression in size and number of axillary, mediastinal and hilar as well as pelvic adenopathy. The spleen size is 14.8 cm compared to 13.4 cm on 11/25/2016. Follow-up CT of the chest abdomen pelvis on 01/05/2019 reported stable bilateral axillary, mediastinal, right hilar lymphadenopathy with no evidence of progression. The splenomegaly he had marginally increased from 04/25/2018. Was noted that he had progressive pelvic lymphadenopathy with a lymph node increased from 1.1 to 1.5 cm and 1.3 to 1.7 cm in the left external iliac. The left internal iliac measured 1.8 compared to 1.4 cm. It was noted that he had a large prostate as well. He did have follow-up repeat CT scan of the chest abdomen pelvis on May 19, 2019 which showed axillary, mediastinal and hilar lymph nodes which were indeterminate with no interval change. The largest lymph node measured at the right hilum was 14 mm. The pelvic lymphadenopathy was without significant progression in size or number since January 05, 2019. There were numerous enlarged lymph nodes. Some measures slightly smaller in size other slightly larger in size which was felt to be due to technical variation. The largest lymph node was measured at 19 mm in the left ureter region. He had markedly enlarged prostate gland. This splenomegaly was at 16.5 cm. It was noted that he had cholelithiasis. Mr. Garcia was started on ibrutinib 420 mg daily along with allopurinol on June 02, 2019. Unfortunately the ibrutinib was discontinued on August 03, 2019 at which time he had called reporting episodes of palpitations lasting for a long time . The ibrutinib was stopped and he was referred to cardiology. He had no further palpitations after stopping the ibrutinib. Mr. Garcia was here for follow-up on September 13, 2019. He was having no significant symptoms but had persistent peripheral lymphadenopathy involving the neck and bilateral axilla and inguinal area. He had no headaches vision changes fever or chills. He had no night sweats or weight loss or any recurrent fever at that time. Had any abdominal fullness as well. He did have follow-up echocardiogram on August 28, 2019 which reported a left ventricular size and systolic ejection fraction of 60%. There was trace mitral valve regurgitation. He did have cardiac monitoring for 15 days he had had any report preliminary report per [facility] reported baseline rhythm was found to be normal sinus with a rate of 61 bpm there was one episode of atrial fibrillation with rapid ventricular rate of 110 lasting for 2 minutes. He is followed with Dr. Murillo regarding the monitor. White count on the September 13, 2019 visit was noted to be 1 29,000. Previously on August 16 it was 235,000 and on May 21, 2019 was 303,000., was recommended to pursue systemic therapy with bendamustine Rituxan. He began his first cycle on September 13, 2019. His last treatment with Rituxan bendamustine was on November 072019. He was admitted to [facility] on 12/29/2019 and treated for severe COVID-19 infection-pneumonia: He required oxygen support in the hospital with groundglass opacities on chest x-ray and CT. He was pretreated with remdesivir, Decadron and empirically covered with antibiotics on presentation due to sepsis treated with Zosyn. Subsequently Primaxin and vancomycin was added as he did have neutropenia in the hospital with his ANC as low as 280. He did slowly recover and was discharged on January 10, 2020. He was readmitted to [facility] on January 23, 2020 with acute sepsis. He was admitted to the general medical floor???Covid unit started on broad-spectrum antibiotic therapy and monitor. His cultures were all unremarkable C. difficile was negative MRSA was negative urine bacterial antigens negative, stool studies negative, CMV unremarkable, influenza negative, parainfluenza negative, galactomannan pending SARS rapid positive on previous admission all cultures were negative this admission. He did have transaminitis, elevated alk phos and right upper quadrant pain in the right upper quadrant ultrasound was negative for cholecystitis. HIDA scan no evidence of acute or chronic cystitis, gallbladder ejection was around 90%. CT of the chest showed bilateral groundglass infiltrates areas of consolidation. At the time there was some concern that he may have had healthcare associated pneumonia he was continued on broad-spectrum antibiotics. He required up to 5 L nasal cannula no shortness of breath complaints no cough. He continued to have high-grade fevers despite being on broad spectrum antibiotics for 72 hours. After discussion with with infectious disease, thought was the patient could have continued COVID-19 infection, thus rems does a fair and Decadron were restarted. For the next 48 hours the patient remained asymptomatic and remained afebrile for the next 48 hours. However he started to develop anemia with his hemoglobin is 7.7 neutropenia at 530 and thrombocytopenia with platelets as low as 90,000. After discussions with infectious disease , thought that Mr. Garica could be suffering bone marrow suppression from the remdesivir or the COVID-19 or the antibiotics. The broad-spectrum antibiotics were deescalated to azithromycin and Levaquin that remdesivir was stopped Decadron was stopped. He received 1 unit packed red blood cells and Neupogen x2. Attempt was made to refer him to [facility] but his counts begin to recover and he began to improve and therefore the transfer was canceled. Mr. Garcia was discharged on January 23, 2020., As per patient , he was on home oxygen and wheelchair due to deconditioning for 2-1/2 months After discharge from hospital in January 2020, and then with the help of physical therapy he started recovering slowly but gradually and was following his PMD on regular basis and during follow-up in July 2020 his white blood count gone up to 80,000 and last week he got up to 186,000 and he also noticed progressive lymphadenopathy in the neck for which his PMD gave him oral antibiotic without much improvement. Patient denies any night sweats, denies any recurrent fever denies any weight loss rather weight gain, off and on abdominal fullness/bloatedness. Also complaining of left axillary lymphadenopathy. No headaches, no blurred vision or double vision, no shortness of breath at rest but dyspnea on exertion as per patient he is on Eliquis for chronic A. 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 Follow-up CT scan of neck chest abdomen pelvis done on October 28, 2020 showed extensive bilateral cervical chain lymphadenopathy involving level 1 through 5 and supraclavicular and axillary regions, largest lymph node measured up to 22 mm. Soft tissue thickening measuring 16 x 10 mm involving left vallecula and pharyngeal epiglottic fold enlarged thyroid gland extending substernal, most likely multinodular goiter. Bilateral enhancing subcentimeter nodules with within parotid gland most likely lymph nodes and CT scan of the chest showed significant increase in size of bilateral axillary and left supraclavicular lymph nodes and mediastinum and hilar region remains stable since January 17, 2020. Significant increase in size and number of lymph nodes along the iliac chains bilaterally extending into obturator and inguinal region. Marked prostate gland enlargement, splenomegaly, spleen measures 16.2 cm compared to 13.3 cm on prior study. Cholelithiasis without acute cholecystitis. Came for follow-up, denies any specific complaints, no fever chills, no nausea or vomiting, no diarrhea or constipation, no dysuria or hematuria, no abdominal pain, no night sweats, no recurrent fever, no weight loss, no mouth sores, no palpitation, no jaundice, tolerating ramp-up venetoclax well, this morning, his dose increased 200 mg p.o. daily . Medications: AmLODIPine Besylate 1 Tablet (of 10 mg) Oral daily, Apixaban (5 mg) Tablet Oral b.i.d., Aspirin 1 Tablet (of 81 mg) Tablet, enteric coated Oral daily, Finasteride 1 Tablet (of 5 mg) Oral daily, Furosemide 1 Tablet (of 20 mg) Oral daily, Lisinopril 1 Tablet (of 20 mg) Oral daily, Lovastatin ER 1 Tablet (of 40 mg) Tablet SR 24 HR Oral daily, Metoprolol Tartrate (25 mg) Tablet Oral b.i.d. Allergies: No Known Allergies. Review of Systems: Review of Systems is not available for this patient. Vital Signs: Performed on Dec 11, 2020 11:36 Height - 69.50 in Weight - 223.4 lbs (LOW) BSA - 2.18 sq.m BMI - 32.52 (HIGH) Temperature - 98.0 F (LOW) Pulse - 57 /min (LOW) Respiration - 18 /min BP - 97/61 mm(hg) O2 Sat - 96 % Pain - 0 Fatigue - 0 Performance Status: 0 - Fully active, able to carry on all predisease activities without restrictions. (ECOG) Physical Examination: ENMT - No mouth sores, no thrush, no jaundice cervical/axillary lymphadenopathy is improving, Respiratory - Lungs are clear to auscultation, Cardiovascular - Regular rate and rhythm of heart, Abdomen - Soft, bowel sounds present no organomegaly, Extremities - No visible edema. Lab/Imaging: Most recent lab results are not available for this patient. 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 Discussed with patient regarding his CT scan finding and lab workup. His white blood count is elevated due to lymphocytosis at 48.7 with a normal hemoglobin and hematocrit as well as platelets No evidence of peripheral lymphadenopathy or central lymphadenopathy except mild lymphadenopathy in pelvis maximum size 1.3 [address] scan of pelvis on 06/07/2009 it was 0.8 cm. Incidental finding, large thyroid goiter causing impingement on trachea and esophagus at the cervicothoracic junction the vast majority of monotypic B cells express CD38 next CLL panel, FISH showed positive for deletion of TP53 (unfavorable prognosis and chemotherapy resistance) And IGHV status shows non-mutation e.g. poor prognostic features Quantitative immunoglobulins checked on 11/04/2016 showed IgG 1100 normal being 700-1600 IgM 53 normal being 40-230 IgA 150 normal being 70-400 Beta-2 microglobulin 0.230 normal being 0.109 -0.253 CT scan of chest abdomen pelvis done on 11/25/2016 showed bilateral lower lobe parenchymal scarring with bilateral lower lobe bronchiectasis segment similar to 06/07/2009. Thyroid goiter with tracheal and esophageal impingements at cervicothoracic junction. Nonspecific right hilar lymph nodes no enlarged or pathological lymphadenopathy seen. Mild iliac region lymph nodes enlargements since 06/07/2009 Size about 1.3 cm. mild splenomegaly Repeat sonogram of abdomen On 12/20/2017 shows mild splenomegaly now 12.9 cm compared to 13.2 cm on 03/02/2017 On 02/09/2018 patient was evaluated by Dr. Alvarenga customer sales consultant at [facility] and his labs done there showed white blood count 198.7 hemoglobin 13.4 hematocrit 34.4 platelets 188,000 IgA 100, IgM 43, IgG 889, SPEP no monoclonal peak, serum light chains showed kappa 2.44, lambda 2.9, kappa/lambda ratio 0.84 which was normal. And his recommendations were serial CT scan of chest abdomen pelvis once a year or sooner if needed. And continue to monitor CBC unless white blood count more than 200,000 as it may be associated with hyperviscosity and treatment options if decided to treat his recommendation was short course of bendamustine/Rituxan up to 4 cycles to achieve an initial response followed by ibrutinib maintenance. CT scan of chest abdomen pelvis done on 04/25/2018 showed very mild progression in the size and number of axillary, just tunnel, hilar and pelvic lymphadenopathy since 11/25/2016 Mild increase in size of spleen since 11/25/2016, now 14.8 cm compared to 13.4 before.Treated with ibrutinib for progressive CLL/SLL,,Started on 420 mg daily along with allopurinol on June 02, 2019 , which was eventually discontinued on August 03, 2019 because of episode of palpitation causing lightheadedness dizziness which improved after stopping ibrutinib, patient was referred to cardiology and eventually was diagnosed with A. fib which was medically managed and was started on Eliquis also but due to progressive disease he was started on bendamustine/Rituxan on September 13, 2019, patient responded well after third cycle which was given on November 08, 2019 his white blood count went down to 17.9 from 290,000 prior to the BR regimen, and resolution of peripheral lymphadenopathy, subsequently patient developed Covid infection for which he was admitted to hospital and patient did not receive further treatment after last dose of bendamustine/Rituxan on November 07 and 2019 Covid infection requiring hospitalization for 20 days but was not intubated but required oxygen and was discharged home on oxygen in November 2019 Severe prostrate gland enlargement Plan: Discussed with patient regarding his labs white blood count 151.9 thousand compared to 196.2 thousand previously hemoglobin 11.6 g hematocrit 38.3 platelets 140,000 ANC 6100 CMP within normal limits Clinically, patient is doing well with no new signs symptom suggestive of disease progression, tolerating ramp-up venetoclax well, this morning he has started taking 100 mg p.o. daily and then he will return to clinic in 1 week with CBC CMP. Patient will continue with prophylactic anti-infective as prescribed along with allopurinol, his follow-up lab work-up showed continued improvement and severe leukocytosis/lymphocytosis while maintaining his hemoglobin and platelet count in normal range and electrolytes and renal function test within normal range. Signed By: Rosanne Plaza M.D. <<Signature on File>>
[2020-12-19 10:12] LABS: Hemoglobin 12.2 g/dL (11.7-16.6); Lymphocytes # 43.8 10^3/uL (0.8-4.8); Lymphocytes % 86.9 %; Mean Corpuscular HGB Conc 32.1 g/dL (30.0-36.0); Mean Corpuscular Volume 102.7 fl (80-94); Mean Platelet Volume 11.1 fL (7.4-10.4); Monocytes # 5.6 10^3/uL (0.2-0.9); Monocytes % 11.2 %; Neutrophils % 1.8 %; Nucleated Red Blood Cells % 0 %; Platelet Count 137 10^3/cmm (130-400); Red Cell Distribution Width 15.8 % (12.1-15.1)
[2020-12-19 11:10] LABS: Neutrophils # 0.86 10^3/uL (1.8-7.7); Slide Review Slide Review Perform; White Blood Count 50.4 10^3/uL (4.0-10.0)
[2020-12-19 11:24] LABS: Alanine Aminotransferase 11 U/L (0-41); Albumin Level 4.6 g/dL (3.5-5.2); Alkaline Phosphatase 68 IU/L (40-130); Aspartate Amino Transferase 18 U/L (0-40); Blood Urea Nitrogen 18 mg/dL (8-23); Calcium 9.4 mg/dL (8.5-10.5); Carbon Dioxide 24 mmol/L (22-29); Chloride 102 mmol/L (98-107); Globulin 2.8 g/dL (1.3-4.6); Glomerular Filtration Rate 83.4 mL/min (90-130); Glucose 151 mg/dL (65-115); Osmolality Calculated 289 mOsm/kg (285-295); Sodium 137 mmol/L (136-145); Total Bilirubin 0.6 mg/dL (0.15-1.2); Total Protein 7.4 g/dL (6.6-8.7)
--- NOTE | 2020-12-30 00:17 | ONC FU_ITS ---
[facility] Patient Note Patient: Lb Garcia Unit #: [id number]: 1950 Dictated By: Luis Angel JolleyDate of Visit: Dec 19, 2020 Onc MED Follow-Up/Prog Note Chief Complaint: elevated white blood cell CLL History of Present Illness: Mr. Garcia is a 70 -year-old gentleman with a past history of elevated white blood count. He reports that he had been having low-grade fever since February 2016. He presented initially with night sweats and was diagnosed with pneumonia. His white blood count on October 06, 2016 was reported at 32,000. His hemoglobin was 14.4 platelets 170,000 and his differential reported lymphocytes of 83.2% neutrophils 13.7% absolute lymphocyte count was 26,700. Follow-up CBC on 10/28/2016 reported a white count of 33,700 and differential showed lymphocytes and 78.5%. He remained on observation. F/u CT of the chest abdomen pelvis on 04/25/2018 and when compared with a CT scan of chest abdomen pelvis from 11/25/2016 there was very mild progression in size and number of axillary, mediastinal and hilar as well as pelvic adenopathy. The spleen size is 14.8 cm compared to 13.4 cm on 11/25/2016. Follow-up CT of the chest abdomen pelvis on 01/05/2019 reported stable bilateral axillary, mediastinal, right hilar lymphadenopathy with no evidence of progression. The splenomegaly he had marginally increased from 04/25/2018. Was noted that he had progressive pelvic lymphadenopathy with a lymph node increased from 1.1 to 1.5 cm and 1.3 to 1.7 cm in the left external iliac. The left internal iliac measured 1.8 compared to 1.4 cm. It was noted that he had a large prostate as well. He did have follow-up repeat CT scan of the chest abdomen pelvis on May 19, 2019 which showed axillary, mediastinal and hilar lymph nodes which were indeterminate with no interval change. The largest lymph node measured at the right hilum was 14 mm. The pelvic lymphadenopathy was without significant progression in size or number since January 05, 2019. There were numerous enlarged lymph nodes. Some measures slightly smaller in size other slightly larger in size which was felt to be due to technical variation. The largest lymph node was measured at 19 mm in the left ureter region. He had markedly enlarged prostate gland. This splenomegaly was at 16.5 cm. It was noted that he had cholelithiasis. Mr. Garcia was started on ibrutinib 420 mg daily along with allopurinol on June 02, 2019. Unfortunately the ibrutinib was discontinued on August 03, 2019 at which time he had called reporting episodes of palpitations lasting for a long time . The ibrutinib was stopped and he was referred to cardiology. He had no further palpitations after stopping the ibrutinib. Mr. Garcia was here for follow-up on September 13, 2019. He was having no significant symptoms but had persistent peripheral lymphadenopathy involving the neck and bilateral axilla and inguinal area. He had no headaches vision changes fever or chills. He had no night sweats or weight loss or any recurrent fever at that time. Had any abdominal fullness as well. He did have follow-up echocardiogram on August 28, 2019 which reported a left ventricular size and systolic ejection fraction of 60%. There was trace mitral valve regurgitation. He did have cardiac monitoring for 15 days he had had any report preliminary report per [employer] access reported baseline rhythm was found to be normal sinus with a rate of 61 bpm there was one episode of atrial fibrillation with rapid ventricular rate of 110 lasting for 2 minutes. He is followed with Dr. Murillo regarding the monitor. White count on the September 13, 2019 visit was noted to be 1 29,000. Previously on August 16 it was 235,000 and on May 21, 2019 was 303,000., was recommended to pursue systemic therapy with bendamustine Rituxan. He began his first cycle on September 13, 2019. His last treatment with Rituxan bendamustine was on November 072019. He was admitted to [facility] on 12/29/2019 and treated for severe COVID-19 infection-pneumonia: He required oxygen support in the hospital with groundglass opacities on chest x-ray and CT. He was pretreated with remdesivir, Decadron and empirically covered with antibiotics on presentation due to sepsis treated with Zosyn. Subsequently Primaxin and vancomycin was added as he did have neutropenia in the hospital with his ANC as low as 280. He did slowly recover and was discharged on January 10, 2020. He was readmitted to [facility] on January 23, 2020 with acute sepsis. He was admitted to the general medical floor???Covid unit started on broad-spectrum antibiotic therapy and monitor. His cultures were all unremarkable C. difficile was negative MRSA was negative urine bacterial antigens negative, stool studies negative, CMV unremarkable, influenza negative, parainfluenza negative, galactomannan pending SARS rapid positive on previous admission all cultures were negative this admission. He did have transaminitis, elevated alk phos and right upper quadrant pain in the right upper quadrant ultrasound was negative for cholecystitis. HIDA scan no evidence of acute or chronic cystitis, gallbladder ejection was around 90%. CT of the chest showed bilateral groundglass infiltrates areas of consolidation. At the time there was some concern that he may have had healthcare associated pneumonia he was continued on broad-spectrum antibiotics. He required up to 5 L nasal cannula no shortness of breath complaints no cough. He continued to have high-grade fevers despite being on broad spectrum antibiotics for 72 hours. After discussion with with infectious disease, thought was the patient could have continued COVID-19 infection, thus rems does a fair and Decadron were restarted. For the next 48 hours the patient remained asymptomatic and remained afebrile for the next 48 hours. However he started to develop anemia with his hemoglobin is 7.7 neutropenia at 530 and thrombocytopenia with platelets as low as 90,000. After discussions with infectious disease , thought that Mr. Garcia could be suffering bone marrow suppression from the remdesivir or the COVID-19 or the antibiotics. The broad-spectrum antibiotics were deescalated to azithromycin and Levaquin that remdesivir was stopped Decadron was stopped. He received 1 unit packed red blood cells and Neupogen x2. Attempt was made to refer him to [facility] but his counts begin to recover and he began to improve and therefore the transfer was canceled. Mr. Garcia was discharged on January 23, 2020. As per patient , he was on home oxygen and wheelchair due to deconditioning for 2-1/2 months After discharge from hospital in January 2020, and then with the help of physical therapy he started recovering slowly but gradually and was following his PMD on regular basis and during follow-up in July 2020 his white blood count gone up to 80,000 and last week he got up to 186,000 and he also noticed progressive lymphadenopathy in the neck for which his PMD gave him oral antibiotic without much improvement. Patient denies any night sweats, denies any recurrent fever denies any weight loss rather weight gain, off and on abdominal fullness/bloatedness. Also complaining of left axillary lymphadenopathy. No headaches, no blurred vision or double vision, no shortness of breath at rest but dyspnea on exertion as per patient he is on Eliquis for chronic A. 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 Follow-up CT scan of neck chest abdomen pelvis done on October 28, 2020 showed extensive bilateral cervical chain lymphadenopathy involving level 1 through 5 and supraclavicular and axillary regions, largest lymph node measured up to 22 mm. Soft tissue thickening measuring 16 x 10 mm involving left vallecula and pharyngeal epiglottic fold enlarged thyroid gland extending substernal, most likely multinodular goiter. Bilateral enhancing subcentimeter nodules with within parotid gland most likely lymph nodes and CT scan of the chest showed significant increase in size of bilateral axillary and left supraclavicular lymph nodes and mediastinum and hilar region remains stable since January 17, 2020. Significant increase in size and number of lymph nodes along the iliac chains bilaterally extending into obturator and inguinal region. Marked prostate gland enlargement, splenomegaly, spleen measures 16.2 cm compared to 13.3 cm on prior study. Cholelithiasis without acute cholecystitis. Mr. Garcia began the venetoclax starter pack on November 27, 2020 for treatment of his CLL. His last visit with Dr. Plaza was on December 11, 2020 and reported that he was at 100 mg daily at that time. He just started venetoclax 200 mg daily yesterday. He reports that he is tolerating it well. Reports that he had a flu vaccine reaction in his left arm and has not done flu any further flu vaccines. Mr. Garcia is here today for follow-up and review of his labs. His white count on November 27, 2020 was 232. On December 03, 2020 was 196. On December 11, 2020 was 152. And today is 50.4. He states overall he feels good. His energy is fair. He has had some fatigue but it comes and goes and is good for the most part. He states he is sleeping okay . He denies any nausea or vomiting. He denies any mouth sores, sore throat or difficulty swallowing. He states that he is able to do all his ADLs without any assistance. He has some diarrhea and some constipation but states there is really no particular pattern and he controls the symptoms with [id number] meds as needed. He denies any bladder changes. He denies any lower extremity edema or pain. He denies any shortness of breath orthopnea. He states he has not had any chest pain or palpitations. He denies any neuropathy symptoms. His ECOG is 1. ] Past Medical History: Benign prostatic hypertorphy Chronic kidney disease Diabetes type II Dyslipidemia Obstructive Sleep Apnea Osteoporosis COVID-19 Positive in 2019 Past Surgical History: Mr. Garcia's surgical history is unremarkable. Allergies: No Known Allergies. Medications: AmLODIPine Besylate 1 Tablet (of 10 mg) Oral daily Apixaban (5 mg) Tablet Oral b.i.d. Aspirin 1 Tablet (of 81 mg) Tablet, enteric coated Oral daily Finasteride 1 Tablet (of 5 mg) Oral daily Furosemide 1 Tablet (of 20 mg) Oral daily Lisinopril 1 Tablet (of 20 mg) Oral daily Lovastatin ER 1 Tablet (of 40 mg) Tablet SR 24 HR Oral daily Metoprolol Tartrate (25 mg) Tablet Oral b.i.d. Family History: Mr. Garcia's mother at age 82: heart failure. Mr. Garcia's father at age 82: lung cancer. Social History: Mr. Garcia is and he is retired. Mr. Garcia quit smoking 25 years ago but had smoked 1.0 pack/day for 25 years. He has no history of drinking. Mr. Garcia reports the following support systems: lives with spouse, significant other, family, or friends, lives in own house, supportive family/friends willing to assist with needs, and adequate transportation available for expected visits. His diet consists of regular meals. He indicates his activity level as: daily activities. Review Of Symptoms: <See Above> Vital Signs: Performed on Dec 19, 2020 11:59 Height - 69.50 in Weight - 221.6 lbs (LOW) BSA - 2.17 sq.m BMI - 32.26 (HIGH) Temperature - 97.5 F (LOW) Pulse - 59 /min (LOW) Respiration - 18 /min BP - 108/64 mm(hg) O2 Sat - 95 % (LOW) Pain - 0 Fatigue - 0,1 - No physically strenuous activity, but ambulatory and able to carry out light or sedentary work (e.g. office work, light house work). (ECOG) Physical Examination: Constitutional Alert, oriented, no acute distress. Skin pink, warm and dry. Head Normocephalic; atraumatic. Eyes Conjunctivae and sclerae are clear and without icterus. Pupils are reactive and equal. Neck Supple without masses or thyromegaly. No jugular venous distension. Hematologic/Lymphatic No petechiae or purpura. No tender or palpable lymph nodes in the cervical or supraclavicular areas. Respiratory Lungs are clear to auscultation without rhonchi or wheezing. Cardiovascular Regular rate and rhythm of heart without murmurs,clicks, gallops or rubs. Back/Spine Non-tender to palpation. Extremities No visible deformities, no cyanosis, clubbing or edema. Musculoskeletal No tenderness or swelling, normal range of motion without obvious weakness. Integumentary No rashes or lesions. Neurologic No sensory or motor deficits, normal cerebellar function, normal gait. Psychiatric Alert and oriented times three. Coherent speech. Verbalizes understanding of our discussions today. Laboratory:see below and in plan Test performed on Dec 19, 2020 09:55 Uric Acid 7.0 mg/dL Anion Gap 15.0 eGFR 83.4 mL/min Osmolality - Calculated 289 mOsm/kg Neutrophil % 1.8 % Lymphocyte % 86.9 % Monocyte % 11.2 % Eosinophil % 0.0 % Basophils % 0.0 % NRBC % 0 % CBC Slide Review Slide Review Perform SLIDE REVIEW AGREES WITH AUTOMATED RESULTS ST Impression: 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 Discussed with patient regarding his CT scan finding and lab workup. His white blood count is elevated due to lymphocytosis at 48.7 with a normal hemoglobin and hematocrit as well as platelets No evidence of peripheral lymphadenopathy or central lymphadenopathy except mild lymphadenopathy in pelvis maximum size 1.[address] scan of pelvis on 06/07/2009 it was 0.8 cm. Incidental finding, large thyroid goiter causing impingement on trachea and esophagus at the cervicothoracic junction the vast majority of monotypic B cells express CD38 next CLL panel, FISH showed positive for deletion of TP53 (unfavorable prognosis and chemotherapy resistance) And IGHV status shows non-mutation e.g. poor prognostic features Quantitative immunoglobulins checked on 11/04/2016 showed IgG 1100 normal being 700-1600 IgM 53 normal being 40-230 IgA 150 normal being 70-400 Beta-2 microglobulin 0.230 normal being 0.109 -0.253 CT scan of chest abdomen pelvis done on 11/25/2016 showed bilateral lower lobe parenchymal scarring with bilateral lower lobe bronchiectasis segment similar to 06/07/2009. Thyroid goiter with tracheal and esophageal impingements at cervicothoracic junction. Nonspecific right hilar lymph nodes no enlarged or pathological lymphadenopathy seen. Mild iliac region lymph nodes enlargements since 06/07/2009 Size about 1.3 cm. 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 And his recommendations were serial CT scan of chest abdomen pelvis once a year or sooner if needed. And continue to monitor CBC unless white blood count more than 200,000 as it may be associated with hyperviscosity and treatment options if decided to treat his recommendation was short course of bendamustine/Rituxan up to 4 cycles to achieve an initial response followed by ibrutinib maintenance. CT scan of chest abdomen pelvis done on 04/25/2018 showed very mild progression in the size and number of axillary, just tunnel, hilar and pelvic lymphadenopathy since 11/25/2016 Mild increase in size of spleen since 11/25/2016, now 14.8 cm compared to 13.4 before.Treated with ibrutinib for progressive CLL/SLL,,Started on 420 mg daily along with allopurinol on June 02, 2019 , which was eventually discontinued on August 03, 2019 because of episode of palpitation causing lightheadedness dizziness which improved after stopping ibrutinib, patient was referred to cardiology and eventually was diagnosed with A. fib which was medically managed and was started on Eliquis also but due to progressive disease he was started on bendamustine/Rituxan on September 13, 2019, patient responded well after third cycle which was given on November 08, 2019 his white blood count went down to 17.9 from 290,000 prior to the BR regimen, and resolution of peripheral lymphadenopathy, subsequently patient developed Covid infection for which he was admitted to hospital and patient did not receive further treatment after last dose of bendamustine/Rituxan on November 07 and 2019. Covid infection requiring hospitalization for 20 days but was not intubated but required oxygen and was discharged home on oxygen in January 2020 Mr Garcia began Venclexta starter pack on 11/27/2020 at which time his WBC was 232 and his lymphocytes were 82%. Severe prostate gland enlargement Plan/Problems Addressed at this Visit: 1. CLL-started ventoclax on 11-27-2020 at which time his WBC were 232.0 and the absolute lymphocyte count was 190.0. He has WBC on 12/11/2020 was 152 and lymphocyte count was 144. A. Today's labs reviewed in detail and discussed with Mr. Garcia and a copy was given to him. WBC 50.6, hemoglobin 12.2, platelets 137,000, ANC is 8600 down from 1510 on start of his venetoclax. His absolute lymphocyte count today was 44. His creatinine today is 0.9 which is stable. His LFTs are normal. Sodium was 137 potassium was 4.0 and calcium is stable at 9.4. His weight is down 2 pounds since his visit on December 11, 2020. B. Proceed with venetoclax at 200 mg daily that he is advised not to increase it any further until his repeat blood count in 1 week. C. We will refill his Famvir and Bactrim for 90-day supplies. He can proceed with allopurinol for 30 additional days but should not need refills after that. D. We will have him go to the [facility] on December 25 for repeat CBC. We will call him with results and instructions on the venetoclax-he is currently 200 mg as he started that dose yesterday. E. We will determine further follow-up after we see his labs on the . F. Mr. Garcia is instructed to contact us in interim should questions or problems arise. He was advised to watch for signs and symptoms of infection, such as fever > 100.4. productive cough, urinary frequency, burning amongst others. Signed By: Luis Angel Jolley-, BEATRIZ Plaza MD <<Signature on File>>
--- NOTE | 2020-12-30 09:31 | ONC FU_ITS ---
[facility] Patient Note Patient: Lb Garcia Unit #: [id number]: 1950 Dictated By: Luis Angel JolleyDate of Visit: Dec 30, 2020 Onc MED Telephone Note I spoke with Mr. Garcia regarding his labs from 12/25/2020. His WBC was 11.6 hemoglobin was 12.0 and his platelet count was 97,000. His ANC was 740. His lymphocytes were at 8900. His last CBC on 12/19/20 revealed a white count of 50.4. He states he is on venetoclax 200 mg daily. I asked him to hold it but he had already taken his dose today. We will send him to the [facility] on January 01 for recheck of his labs to include CBC and CMP. I have asked him to hold his venetoclax until we have those lab results and then decide what dose he is to be on at that time. He has no questions. He states he is feeling well overall. He was directed to call us if he has questions or problems in the interim. Signed By: Bear Jolley AOCNP <<Signature on File>>
== END 2021-01-05 23:59 | disposition home or self-care (01) ==
LOC: ONCMED 06:21
PROVIDERS: Nurse Practitioner; PCP Nurse Practitioner; Visit Provider Internal Medicine Hematology & Oncology
DX: C91.10 Chronic lymphocytic leukemia of B-cell type not having achieved remission (principal); E04.1 Nontoxic single thyroid nodule; J47.9 Bronchiectasis, uncomplicated; R59.0 Localized enlarged lymph nodes; R16.1 Splenomegaly, not elsewhere classified; N40.0 Benign prostatic hyperplasia without lower urinary tract symptoms; Z86.16 Personal history of COVID-19; Z92.21 Personal history of antineoplastic chemotherapy; Z79.899 Other long term (current) drug therapy
CPT/HCPCS: 36415; 80053; 84550; 85007; 85025; 96360; 99214; J7030

== ENCOUNTER → 2020-12-25 08:57 | Outpatient (BNVA) | payer MEDICARE, OTHER, SELFPAY | PROVIDERS: PCP Nurse Practitioner; Visit Provider Nurse Practitioner | DX: C91.10 Chronic lymphocytic leukemia of B-cell type not having achieved remission (principal) | CPT/HCPCS: 80053; 85025 ==

== ENCOUNTER → 2021-01-01 08:47 | Outpatient (BNVA) | payer MEDICARE, OTHER, SELFPAY | PROVIDERS: PCP Nurse Practitioner; Visit Provider Internal Medicine Hematology & Oncology | DX: E11.9 Type 2 diabetes mellitus without complications (principal); C91.10 Chronic lymphocytic leukemia of B-cell type not having achieved remission | CPT/HCPCS: 80053; 80061; 83036; 85025 ==

== ENCOUNTER → 2021-01-20 08:03 | Outpatient (BNVA) | payer MEDICARE, OTHER, SELFPAY | PROVIDERS: PCP Nurse Practitioner; Visit Provider Internal Medicine Hematology & Oncology | DX: Z79.899 Other long term (current) drug therapy (principal); C91.10 Chronic lymphocytic leukemia of B-cell type not having achieved remission | CPT/HCPCS: 80053; 85007; 85025 ==

== ENCOUNTER → 2021-01-27 09:24 | Outpatient (BNVA) | payer MEDICARE, OTHER, SELFPAY | PROVIDERS: PCP Nurse Practitioner; Visit Provider Nurse Practitioner | DX: C91.10 Chronic lymphocytic leukemia of B-cell type not having achieved remission (principal) | CPT/HCPCS: 80053; 83615; 85025 ==

== ENCOUNTER 2021-02-03 06:27 | Outpatient (RCR) | payer MEDICARE, OTHER, SELFPAY ==
--- NOTE | 2021-01-26 19:41 | ONC FU_ITS ---
[facility] Patient Note Patient: Lb Garcia Unit #: [id number]: [id number] Dictated By: Luis Angel JolleyDate of Visit: Jan 14, 2021 Onc MED Follow-Up/Prog Note Chief Complaint: elevated white blood cell CLL History of Present Illness: Mr. Garcia is a 70 -year-old gentleman with a past history of elevated white blood count. He reports that he had been having low-grade fever since February 2016. He presented initially with night sweats and was diagnosed with pneumonia. His white blood count on October 06, 2016 was reported at 32,000. His hemoglobin was 14.4 platelets 170,000 and his differential reported lymphocytes of 83.2% neutrophils 13.7% absolute lymphocyte count was 26,700. Follow-up CBC on 10/28/2016 reported a white count of 33,700 and differential showed lymphocytes and 78.5%. He remained on observation. F/u CT of the chest abdomen pelvis on 04/25/2018 and when compared with a CT scan of chest abdomen pelvis from 11/25/2016 there was very mild progression in size and number of axillary, mediastinal and hilar as well as pelvic adenopathy. The spleen size is 14.8 cm compared to 13.4 cm on 11/25/2016. Follow-up CT of the chest abdomen pelvis on 01/05/2019 reported stable bilateral axillary, mediastinal, right hilar lymphadenopathy with no evidence of progression. The splenomegaly he had marginally increased from 04/25/2018. Was noted that he had progressive pelvic lymphadenopathy with a lymph node increased from 1.1 to 1.5 cm and 1.3 to 1.7 cm in the left external iliac. The left internal iliac measured 1.8 compared to 1.4 cm. It was noted that he had a large prostate as well. He did have follow-up repeat CT scan of the chest abdomen pelvis on May 19, 2019 which showed axillary, mediastinal and hilar lymph nodes which were indeterminate with no interval change. The largest lymph node measured at the right hilum was 14 mm. The pelvic lymphadenopathy was without significant progression in size or number since January 05, 2019. There were numerous enlarged lymph nodes. Some measures slightly smaller in size other slightly larger in size which was felt to be due to technical variation. The largest lymph node was measured at 19 mm in the left ureter region. He had markedly enlarged prostate gland. This splenomegaly was at 16.5 cm. It was noted that he had cholelithiasis. Mr. Garcia was started on ibrutinib 420 mg daily along with allopurinol on June 02, 2019. Unfortunately the ibrutinib was discontinued on August 03, 2019 at which time he had called reporting episodes of palpitations lasting for a long time . The ibrutinib was stopped and he was referred to cardiology. He had no further palpitations after stopping the ibrutinib. Mr. Garcia was here for follow-up on September 13, 2019. He was having no significant symptoms but had persistent peripheral lymphadenopathy involving the neck and bilateral axilla and inguinal area. He had no headaches vision changes fever or chills. He had no night sweats or weight loss or any recurrent fever at that time. Had any abdominal fullness as well. He did have follow-up echocardiogram on August 28, 2019 which reported a left ventricular size and systolic ejection fraction of 60%. There was trace mitral valve regurgitation. He did have cardiac monitoring for 15 days he had had any report preliminary report per [employer] (acquired by [employer] in 2014) access reported baseline rhythm was found to be normal sinus with a rate of 61 bpm there was one episode of atrial fibrillation with rapid ventricular rate of 110 lasting for 2 minutes. He is followed with Dr. Murillo regarding the monitor. White count on the September 13, 2019 visit was noted to be 1 29,000. Previously on August 16 it was 235,000 and on May 21, 2019 was 303,000., was recommended to pursue systemic therapy with bendamustine Rituxan. He began his first cycle on September 13, 2019. His last treatment with Rituxan bendamustine was on November 072019. He was admitted to [facility] on 12/29/2019 and treated for severe COVID-19 infection-pneumonia: He required oxygen support in the hospital with groundglass opacities on chest x-ray and CT. He was pretreated with remdesivir, Decadron and empirically covered with antibiotics on presentation due to sepsis treated with Zosyn. Subsequently Primaxin and vancomycin was added as he did have neutropenia in the hospital with his ANC as low as 280. He did slowly recover and was discharged on January 10, 2020. He was readmitted to [facility] on January 23, 2020 with acute sepsis. He was admitted to the general medical floor???Covid unit started on broad-spectrum antibiotic therapy and monitor. His cultures were all unremarkable C. difficile was negative MRSA was negative urine bacterial antigens negative, stool studies negative, CMV unremarkable, influenza negative, parainfluenza negative, galactomannan pending SARS rapid positive on previous admission all cultures were negative this admission. He did have transaminitis, elevated alk phos and right upper quadrant pain in the right upper quadrant ultrasound was negative for cholecystitis. HIDA scan no evidence of acute or chronic cystitis, gallbladder ejection was around 90%. CT of the chest showed bilateral groundglass infiltrates areas of consolidation. At the time there was some concern that he may have had healthcare associated pneumonia he was continued on broad-spectrum antibiotics. He required up to 5 L nasal cannula no shortness of breath complaints no cough. He continued to have high-grade fevers despite being on broad spectrum antibiotics for 72 hours. After discussion with with infectious disease, thought was the patient could have continued COVID-19 infection, thus rems does a fair and Decadron were restarted. For the next 48 hours the patient remained asymptomatic and remained afebrile for the next 48 hours. However he started to develop anemia with his hemoglobin is 7.7 neutropenia at 530 and thrombocytopenia with platelets as low as 90,000. After discussions with infectious disease , thought that Mr. Garcia could be suffering bone marrow suppression from the remdesivir or the COVID-19 or the antibiotics. The broad-spectrum antibiotics were deescalated to azithromycin and Levaquin that remdesivir was stopped Decadron was stopped. He received 1 unit packed red blood cells and Neupogen x2. Attempt was made to refer him to [facility] but his counts begin to recover and he began to improve and therefore the transfer was canceled. Mr. Garcia was discharged on January 23, 2020. As per patient , he was on home oxygen and wheelchair due to deconditioning for 2-1/2 months After discharge from hospital in January 2020, and then with the help of physical therapy he started recovering slowly but gradually and was following his PMD on regular basis and during follow-up in July 2020 his white blood count gone up to 80,000 and last week he got up to 186,000 and he also noticed progressive lymphadenopathy in the neck for which his PMD gave him oral antibiotic without much improvement. Patient denies any night sweats, denies any recurrent fever denies any weight loss rather weight gain, off and on abdominal fullness/bloatedness. Also complaining of left axillary lymphadenopathy. No headaches, no blurred vision or double vision, no shortness of breath at rest but dyspnea on exertion as per patient he is on Eliquis for chronic A. 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 Murillo, advisory internship. Follow-up CT scan of neck chest abdomen pelvis done on October 28, 2020 showed extensive bilateral cervical chain lymphadenopathy involving level 1 through 5 and supraclavicular and axillary regions, largest lymph node measured up to 22 mm. Soft tissue thickening measuring 16 x 10 mm involving left vallecula and pharyngeal epiglottic fold enlarged thyroid gland extending substernal, most likely multinodular goiter. Bilateral enhancing subcentimeter nodules with within parotid gland most likely lymph nodes and CT scan of the chest showed significant increase in size of bilateral axillary and left supraclavicular lymph nodes and mediastinum and hilar region remains stable since January 17, 2020. Significant increase in size and number of lymph nodes along the iliac chains bilaterally extending into obturator and inguinal region. Marked prostate gland enlargement, splenomegaly, spleen measures 16.2 cm compared to 13.3 cm on prior study. Cholelithiasis without acute cholecystitis. Mr. Garcia began the venetoclax starter pack on November 27, 2020 for treatment of his CLL. His last visit with Dr. Plaza was on December 11, 2020 and reported that he was at 100 mg daily at that time. He just started venetoclax 200 mg daily yesterday. He reports that he is tolerating it well. Reports that he had a flu vaccine reaction in his left arm and has not done flu any further flu vaccines. Mr. Garcia is here today for follow-up and review of his labs. His white count on November 27, 2020 was 232. On December 03, 2020 was 196. On December 11, 2020 was 152 and on December 19 it was 50.4. His last recorded WBC prior to today's visit was 12/26/2020 which time it was 11.6. His platelet count was 97,000 and his neutrophils were 740. His venetoclax has remained on hold. He is here today for follow-up. He states he feels better than he has in the last 2 years. His energy is improved. He has had some fatigue but it comes and goes and is good for the most part. He states he is sleeping okay . He denies any nausea or vomiting. He denies any mouth sores, sore throat or difficulty swallowing. He states that he is able to do all his ADLs without any assistance. He has some diarrhea and some constipation but states there is really no particular pattern and he controls the symptoms with [id number] meds as needed. He denies any bladder changes. He denies any lower extremity edema or pain. He denies any shortness of breath orthopnea. He states he has not had any chest pain or palpitations. He denies any neuropathy symptoms. His ECOG is 0. . Past Medical History: Benign prostatic hypertorphy Chronic kidney disease Diabetes type II Dyslipidemia Obstructive Sleep Apnea Osteoporosis COVID-19 Positive in 2019 Past Surgical History: Mr. Boldens surgical history is unremarkable. Allergies: No Known Allergies. Medications: AmLODIPine Besylate 1 Tablet (of 10 mg) Oral daily Apixaban (5 mg) Tablet Oral b.i.d. Aspirin 1 Tablet (of 81 mg) Tablet, enteric coated Oral daily Finasteride 1 Tablet (of 5 mg) Oral daily Furosemide 1 Tablet (of 20 mg) Oral daily Lisinopril 1 Tablet (of 20 mg) Oral daily Lovastatin ER 1 Tablet (of 40 mg) Tablet SR 24 HR Oral daily Metoprolol Tartrate (25 mg) Tablet Oral b.i.d. Family History: Mr. Garcia's mother at age 82: heart failure. Mr. Garcia's father at age 82: lung cancer. Social History: Mr. Garcia is and he is retired. Mr. Garcia quit smoking 25 years ago but had smoked 1.0 pack/day for 25 years. He has no history of drinking. Mr. Garcia reports the following support systems: lives with spouse, significant other, family, or friends, lives in own house, supportive family/friends willing to assist with needs, and adequate transportation available for expected visits. His diet consists of regular meals. He indicates his activity level as: daily activities. Review Of Symptoms: <See Above> Vital Signs: Performed on Jan 14, 2021 12:27 Height - 69.50 in Weight - 225.4 lbs (HIGH) BSA - 2.18 sq.m BMI - 32.81 (HIGH) Temperature - 97.2 F (LOW) Pulse - 71 /min Respiration - 18 /min BP - 127/71 mm(hg) O2 Sat - 96 % Pain - 0 Fatigue - 0,0 - Fully active, able to carry on all predisease activities without restrictions. (ECOG) Physical Examination: Constitutional Alert, oriented, no acute distress. Skin pink, warm and dry. Head Normocephalic; atraumatic. Eyes Conjunctivae and sclerae are clear and without icterus. Pupils are reactive and equal. Neck Supple without masses or thyromegaly. No jugular venous distension. Hematologic/Lymphatic No petechiae or purpura. No tender or palpable lymph nodes in the cervical or supraclavicular areas. Respiratory Lungs are clear to auscultation without rhonchi or wheezing. Cardiovascular Regular rate and rhythm of heart without murmurs,clicks, gallops or rubs. Back/Spine Non-tender to palpation. Extremities No visible deformities, no cyanosis, clubbing or edema. Musculoskeletal No tenderness or swelling, normal range of motion without obvious weakness. Integumentary No rashes or lesions. Neurologic No sensory or motor deficits, normal cerebellar function, normal gait. Psychiatric Alert and oriented times three. Coherent speech. Verbalizes understanding of our discussions today. Laboratory:Test performed on Jan 20, 2021 08:03 WBC 5.8 10^9/L RBC 3.62 10^12/L HGB 12.2 g/dL HCT 38.6 % MCV 106.6 fl MCH 33.7 pg MCHC 31.6 g/dL RDW 13.7 % Platelet Count 96 10^9/L MPV 12.3 fL Neutrophils (Gran) 1.3 10^9/L Lymphocytes 3.074 10^9/L Monocytes 0.232 10^9/L Eosinophils 0.058 10^9/L Blasts 6 % Test performed on Jan 13, 2021 09:02 Basophils 0.0294 10^9/L NRBCs 0.0 /100 WBC Test performed on Dec 26, 2020 12:16 Glucose 154 mg/dL BUN 13 mg/dL Creatinine 0.8 mg/dL Cr Clearance (Est) 122.16 mL/min Sodium 138 mmol/L Potassium 4.1 mmol/L Chloride 101 mmol/L CO2 24 mmol/L Calcium 9.0 mg/dL Protein, Total 7.3 g/dL Albumin 2.8 g/dL Globulin 2.8 g/dL Bilirubin, Total 0.9 mg/dL Alkaline Phosphatase 68 International Units/L AST (SGOT) 15 International Units/L ALT (SGPT) 11 International Units/L Test performed on Dec 19, 2020 09:55 Uric Acid 7.0 mg/dL Anion Gap 15.0 eGFR 83.4 mL/min Osmolality - Calculated 289 mOsm/kg Neutrophil % 1.8 % Lymphocyte % 86.9 % Monocyte % 11.2 % Eosinophil % 0.0 % Basophils % 0.0 % NRBC % 0 % CBC Slide Review Slide Review Perform SLIDE REVIEW AGREES WITH AUTOMATED RESULTS ST Impression: 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 Discussed with patient regarding his CT scan finding and lab workup. His white blood count is elevated due to lymphocytosis at 48.7 with a normal hemoglobin and hematocrit as well as platelets No evidence of peripheral lymphadenopathy or central lymphadenopathy except mild lymphadenopathy in pelvis maximum size 1.3 [address] scan of pelvis on 06/07/2009 it was 0.8 cm. Incidental finding, large thyroid goiter causing impingement on trachea and esophagus at the cervicothoracic junction the vast majority of monotypic B cells express CD38 next CLL panel, FISH showed positive for deletion of TP53 (unfavorable prognosis and chemotherapy resistance) And IGHV status shows non-mutation e.g. poor prognostic features Quantitative immunoglobulins checked on 11/04/2016 showed IgG 1100 normal being 700-1600 IgM 53 normal being 40-230 IgA 150 normal being 70-400 Beta-2 microglobulin 0.230 normal being 0.109 -0.253 CT scan of chest abdomen pelvis done on 11/25/2016 showed bilateral lower lobe parenchymal scarring with bilateral lower lobe bronchiectasis segment similar to 06/07/2009. Thyroid goiter with tracheal and esophageal impingements at cervicothoracic junction. Nonspecific right hilar lymph nodes no enlarged or pathological lymphadenopathy seen. Mild iliac region lymph nodes enlargements since 06/07/2009 Size about 1.3 cm. mild splenomegaly Repeat sonogram of abdomen On 12/20/2017 shows mild splenomegaly now 12.9 cm compared to 13.2 cm on 03/02/2017 On 02/09/2018 patient was evaluated by Dr. Alvarenga winding machine operator at [facility] and his labs done there showed white blood count 198.7 hemoglobin 13.4 hematocrit 34.4 platelets 188,000 IgA 100, IgM 43, IgG 889, SPEP no monoclonal peak, serum light chains showed kappa 2.44, lambda 2.9, kappa/lambda ratio 0.84 which was normal. And his recommendations were serial CT scan of chest abdomen pelvis once a year or sooner if needed. And continue to monitor CBC unless white blood count more than 200,000 as it may be associated with hyperviscosity and treatment options if decided to treat his recommendation was short course of bendamustine/Rituxan up to 4 cycles to achieve an initial response followed by ibrutinib maintenance. CT scan of chest abdomen pelvis done on 04/25/2018 showed very mild progression in the size and number of axillary, just tunnel, hilar and pelvic lymphadenopathy since 11/25/2016 Mild increase in size of spleen since 11/25/2016, now 14.8 cm compared to 13.4 before.Treated with ibrutinib for progressive CLL/SLL,,Started on 420 mg daily along with allopurinol on June 02, 2019 , which was eventually discontinued on August 03, 2019 because of episode of palpitation causing lightheadedness dizziness which improved after stopping ibrutinib, patient was referred to cardiology and eventually was diagnosed with A. fib which was medically managed and was started on Eliquis also but due to progressive disease he was started on bendamustine/Rituxan on September 13, 2019, patient responded well after third cycle which was given on November 08, 2019 his white blood count went down to 17.9 from 290,000 prior to the BR regimen, and resolution of peripheral lymphadenopathy, subsequently patient developed Covid infection for which he was admitted to hospital and patient did not receive further treatment after last dose of bendamustine/Rituxan on November 07 and 2019. Covid infection requiring hospitalization for 20 days but was not intubated but required oxygen and was discharged home on oxygen in January 2020 Mr Garcia began Venclexta starter pack on 11/27/2020 at which time his WBC was 232 and his lymphocytes were 82%. Severe prostate gland enlargement Plan/Problems Addressed at this Visit: 1. CLL-started ventoclax on 11-27-2020 at which time his WBC was 232.0 and the absolute lymphocyte count was 190.0. He has WBC on 12/11/2020 was 152 and lymphocyte count was 144. His WBC on 12/19/20 had dropped to 50.4 and on December 29, 2020 it was 11.6. At that time his venetoclax was placed on hold. His WBC was 10.3 on 01.06.2021 and ANC was 1010. His venetoclax remained on hold A. January 13, 2021 labs reviewed in detail and discussed with Mr. Garcia and a copy was given to him. WBC 14.7, hemoglobin 12.5, platelets 119,000, absolute lymphocyte count is 10,300 and absolute neutrophil count is 1060. B. Proceed with venetoclax at 200 mg daily x 1 week and recheck CBC. If his counts are still maintaining well will have increased to 40 mg daily. We discussed about resuming him at 400 mg daily but he states he was really nervous to do this as his counts to drop so fast. We will start him at 200 daily for 7 days and then increase accordingly. C. We will refill his Famvir and Bactrim for 90-day supplies. He is currently on allopurinol for 30 additional days but should not need refills after that. D. We will have him go to the [facility] on 01/19- for repeat CBC. We will call him with results and instructions on the venetoclax-he should be on 200 mg of Venetoclax at that time. E. We will plan to check weekly interim counts him plan to see him back in the next 2 to 3 weeks unless otherwise needed. He has no questions or concerns at this time. F. Mr. Garcia is instructed to contact us in interim should questions or problems arise. He was advised to watch for signs and symptoms of infection, such as fever > 100.4. productive cough, urinary frequency, burning amongst others. Signed By: Luis Angel Jolley-, AOCNP Rosanne lPaza MD <<Signature on File>>
[2021-01-29] MEDS: sodium chloride 0.9% 500 ML 75 ML IV (11:39)
[2021-01-29] MEDS: diphenhydrAMINE 50 mg/mL SDV 1mL 25 MG IVP (11:39)
[2021-01-29] MEDS: acetaminophen 325 mg Tablet 650 MG PO (11:50)
[2021-01-29] MEDS: meperidine 50 mg/mL INJ IV (13:53)
--- NOTE | 2021-01-29 16:53 | ONC FU_ITS ---
Dr. Plaza follow up note Patient: Lb Garcia Unit #: [id number]: [id number] Dicatated By: Rosanne Plaza M.D.Date of Visit:Jan 29, 2021 Onc Med Follow-up/Prog Note History of Present Illness: Mr. Garcia is a 70 -year-old gentleman with a past history of elevated white blood count. He reports that he had been having low-grade fever since February 2016. He presented initially with night sweats and was diagnosed with pneumonia. His white blood count on October 06, 2016 was reported at 32,000. His hemoglobin was 14.4 platelets 170,000 and his differential reported lymphocytes of 83.2% neutrophils 13.7% absolute lymphocyte count was 26,700. Follow-up CBC on 10/28/2016 reported a white count of 33,700 and differential showed lymphocytes and 78.5%. He remained on observation. F/u CT of the chest abdomen pelvis on 04/25/2018 and when compared with a CT scan of chest abdomen pelvis from 11/25/2016 there was very mild progression in size and number of axillary, mediastinal and hilar as well as pelvic adenopathy. The spleen size is 14.8 cm compared to 13.4 cm on 11/25/2016. Follow-up CT of the chest abdomen pelvis on 01/05/2019 reported stable bilateral axillary, mediastinal, right hilar lymphadenopathy with no evidence of progression. The splenomegaly he had marginally increased from 04/25/2018. Was noted that he had progressive pelvic lymphadenopathy with a lymph node increased from 1.1 to 1.5 cm and 1.3 to 1.7 cm in the left external iliac. The left internal iliac measured 1.8 compared to 1.4 cm. It was noted that he had a large prostate as well. He did have follow-up repeat CT scan of the chest abdomen pelvis on May 19, 2019 which showed axillary, mediastinal and hilar lymph nodes which were indeterminate with no interval change. The largest lymph node measured at the right hilum was 14 mm. The pelvic lymphadenopathy was without significant progression in size or number since January 05, 2019. There were numerous enlarged lymph nodes. Some measures slightly smaller in size other slightly larger in size which was felt to be due to technical variation. The largest lymph node was measured at 19 mm in the left ureter region. He had markedly enlarged prostate gland. This splenomegaly was at 16.5 cm. It was noted that he had cholelithiasis. Mr. Garcia was started on ibrutinib 420 mg daily along with allopurinol on June 02, 2019. Unfortunately the ibrutinib was discontinued on August 03, 2019 at which time he had called reporting episodes of palpitations lasting for a long time . The ibrutinib was stopped and he was referred to cardiology. He had no further palpitations after stopping the ibrutinib. Mr. Garcia was here for follow-up on September 13, 2019. He was having no significant symptoms but had persistent peripheral lymphadenopathy involving the neck and bilateral axilla and inguinal area. He had no headaches vision changes fever or chills. He had no night sweats or weight loss or any recurrent fever at that time. Had any abdominal fullness as well. He did have follow-up echocardiogram on August 28, 2019 which reported a left ventricular size and systolic ejection fraction of 60%. There was trace mitral valve regurgitation. He did have cardiac monitoring for 15 days he had had any report preliminary report per Vi[facility] access reported baseline rhythm was found to be normal sinus with a rate of 61 bpm there was one episode of atrial fibrillation with rapid ventricular rate of 110 lasting for 2 minutes. He is followed with Dr. Murillo regarding the monitor. White count on the September 13, 2019 visit was noted to be 1 29,000. Previously on August 16 it was 235,000 and on May 21, 2019 was 303,000., was recommended to pursue systemic therapy with bendamustine Rituxan. He began his first cycle on September 13, 2019. His last treatment with Rituxan bendamustine was on November 072019. He was admitted to [facility] on 12/29/2019 and treated for severe COVID-19 infection-pneumonia: He required oxygen support in the hospital with groundglass opacities on chest x-ray and CT. He was pretreated with remdesivir, Decadron and empirically covered with antibiotics on presentation due to sepsis treated with Zosyn. Subsequently Primaxin and vancomycin was added as he did have neutropenia in the hospital with his ANC as low as 280. He did slowly recover and was discharged on January 10, 2020. He was readmitted to [facility] on January 23, 2020 with acute sepsis. He was admitted to the general medical floor???Covid unit started on broad-spectrum antibiotic therapy and monitor. His cultures were all unremarkable C. difficile was negative MRSA was negative urine bacterial antigens negative, stool studies negative, CMV unremarkable, influenza negative, parainfluenza negative, galactomannan pending SARS rapid positive on previous admission all cultures were negative this admission. He did have transaminitis, elevated alk phos and right upper quadrant pain in the right upper quadrant ultrasound was negative for cholecystitis. HIDA scan no evidence of acute or chronic cystitis, gallbladder ejection was around 90%. CT of the chest showed bilateral groundglass infiltrates areas of consolidation. At the time there was some concern that he may have had healthcare associated pneumonia he was continued on broad-spectrum antibiotics. He required up to 5 L nasal cannula no shortness of breath complaints no cough. He continued to have high-grade fevers despite being on broad spectrum antibiotics for 72 hours. After discussion with with infectious disease, thought was the patient could have continued COVID-19 infection, thus rems does a fair and Decadron were restarted. For the next 48 hours the patient remained asymptomatic and remained afebrile for the next 48 hours. However he started to develop anemia with his hemoglobin is 7.7 neutropenia at 530 and thrombocytopenia with platelets as low as 90,000. After discussions with infectious disease , thought that Mr. Garcia could be suffering bone marrow suppression from the remdesivir or the COVID-19 or the antibiotics. The broad-spectrum antibiotics were deescalated to azithromycin and Levaquin that remdesivir was stopped Decadron was stopped. He received 1 unit packed red blood cells and Neupogen x2. Attempt was made to refer him to [facility] but his counts begin to recover and he began to improve and therefore the transfer was canceled. Mr. Garcia was discharged on January 23, 2020. As per patient , he was on home oxygen and wheelchair due to deconditioning for 2-1/2 months After discharge from hospital in January 2020, and then with the help of physical therapy he started recovering slowly but gradually and was following his PMD on regular basis and during follow-up in July 2020 his white blood count gone up to 80,000 and last week he got up to 186,000 and he also noticed progressive lymphadenopathy in the neck for which his PMD gave him oral antibiotic without much improvement. Patient denies any night sweats, denies any recurrent fever denies any weight loss rather weight gain, off and on abdominal fullness/bloatedness. Also complaining of left axillary lymphadenopathy. No headaches, no blurred vision or double vision, no shortness of breath at rest but dyspnea on exertion as per patient he is on Eliquis for chronic A. 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 Murillo, save all operator. Follow-up CT scan of neck chest abdomen pelvis done on October 28, 2020 showed extensive bilateral cervical chain lymphadenopathy involving level 1 through 5 and supraclavicular and axillary regions, largest lymph node measured up to 22 mm. Soft tissue thickening measuring 16 x 10 mm involving left vallecula and pharyngeal epiglottic fold enlarged thyroid gland extending substernal, most likely multinodular goiter. Bilateral enhancing subcentimeter nodules with within parotid gland most likely lymph nodes and CT scan of the chest showed significant increase in size of bilateral axillary and left supraclavicular lymph nodes and mediastinum and hilar region remains stable since January 17, 2020. Significant increase in size and number of lymph nodes along the iliac chains bilaterally extending into obturator and inguinal region. Marked prostate gland enlargement, splenomegaly, spleen measures 16.2 cm compared to 13.3 cm on prior study. Cholelithiasis without acute cholecystitis. Mr. Garcia began the venetoclax starter pack With ramp-up plan on November 27, 2020 for treatment of his CLL. , On January 21, 2021 his dose was ramped up all the way up to 400 mg p.o. daily, which he is tolerating well, Rituxan q. 28 days x 6 was started on January 28, 2021, as per protocol he received first cycle of Rituxan at a dose of 375 mg per metered square and cycle 2-6 he will receive Rituxan 500 mg per metered square q. 28 days Came for follow-up, denies any specific complaints, no fever chills, no nausea or vomiting, no diarrhea constipation, no night sweats, no recurrent fever, no weight loss, patient said his lymph nodes in his neck is improving significantly now palpable lymph node in left upper neck is less than half of the size, no abdominal fullness, no significant lymphadenopathy palpable in axilla either. Tolerating max dose venetoclax e.g. 400 mg p.o. daily well and now starting Rituxan today. . Medications: AmLODIPine Besylate 1 Tablet (of 10 mg) Oral daily, Apixaban (5 mg) Tablet Oral b.i.d., Aspirin 1 Tablet (of 81 mg) Tablet, enteric coated Oral daily, Finasteride 1 Tablet (of 5 mg) Oral daily, Furosemide 1 Tablet (of 20 mg) Oral daily, Lisinopril 1 Tablet (of 20 mg) Oral daily, Lovastatin ER 1 Tablet (of 40 mg) Tablet SR 24 HR Oral daily, Metoprolol Tartrate (25 mg) Tablet Oral b.i.d. Allergies: No Known Allergies. Review of Systems: Review of Systems is not available for this patient. Vital Signs: Performed on Jan 29, 2021 08:02 Height - 69.50 in Weight - 225.0 lbs (LOW) BSA - 2.18 sq.m BMI - 32.75 (HIGH) Temperature - 98.4 F Pulse - 70 /min Respiration - 18 /min BP - 137/76 mm(hg) O2 Sat - 96 % Pain - 0 Fatigue - 0 Performance Status: 0 - Fully active, able to carry on all predisease activities without restrictions. (ECOG) Physical Examination: ENMT - No mouth sores, no thrush, no jaundice, palpable left cervical lymphadenopathy and mild lymphadenopathy in the right side and bilateral axilla, Respiratory - Lungs are clear to auscultation, Cardiovascular - Regular rate and rhythm of heart, Abdomen - Soft, bowel sounds present, Extremities - No visible edema. Lab/Imaging: Test performed on Jan 20, 2021 08:03 WBC 5.8 10^9/L RBC 3.62 10^12/L HGB 12.2 g/dL HCT 38.6 % MCV 106.6 fl MCH 33.7 pg MCHC 31.6 g/dL RDW 13.7 % Platelet Count 96 10^9/L MPV 12.3 fL Neutrophils (Gran) 1.3 10^9/L Lymphocytes 3.074 10^9/L Monocytes 0.232 10^9/L Eosinophils 0.058 10^9/L Blasts 6 % Test performed on Jan 13, 2021 09:02 Basophils 0.0294 10^9/L NRBCs 0.0 /100 WBC Test performed on Dec 26, 2020 12:16 Glucose 154 mg/dL BUN 13 mg/dL Creatinine 0.8 mg/dL Cr Clearance (Est) 122.16 mL/min Sodium 138 mmol/L Potassium 4.1 mmol/L Chloride 101 mmol/L CO2 24 mmol/L Calcium 9.0 mg/dL Protein, Total 7.3 g/dL Albumin 2.8 g/dL Globulin 2.8 g/dL Bilirubin, Total 0.9 mg/dL Alkaline Phosphatase 68 International Units/L AST (SGOT) 15 International Units/L ALT (SGPT) 11 International Units/L Test performed on Dec 19, 2020 09:55 Uric Acid 7.0 mg/dL Anion Gap 15.0 eGFR 83.4 mL/min Osmolality - Calculated 289 mOsm/kg Neutrophil % 1.8 % Lymphocyte % 86.9 % Monocyte % 11.2 % Eosinophil % 0.0 % Basophils % 0.0 % NRBC % 0 % CBC Slide Review Slide Review Perform SLIDE REVIEW AGREES WITH AUTOMATED RESULTS ST Impression: 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 Discussed with patient regarding his CT scan finding and lab workup. His white blood count is elevated due to lymphocytosis at 48.7 with a normal hemoglobin and hematocrit as well as platelets No evidence of peripheral lymphadenopathy or central lymphadenopathy except mild lymphadenopathy in pelvis maximum size 1.3 [address] scan of pelvis on 06/07/2009 it was 0.8 cm. Incidental finding, large thyroid goiter causing impingement on trachea and esophagus at the cervicothoracic junction the vast majority of monotypic B cells express CD38 next CLL panel, FISH showed positive for deletion of TP53 (unfavorable prognosis and chemotherapy resistance) And IGHV status shows non-mutation e.g. poor prognostic features Quantitative immunoglobulins checked on 11/04/2016 showed IgG 1100 normal being 700-1600 IgM 53 normal being 40-230 IgA 150 normal being 70-400 Beta-2 microglobulin 0.230 normal being 0.109 -0.253 CT scan of chest abdomen pelvis done on 11/25/2016 showed bilateral lower lobe parenchymal scarring with bilateral lower lobe bronchiectasis segment similar to 06/07/2009. Thyroid goiter with tracheal and esophageal impingements at cervicothoracic junction. Nonspecific right hilar lymph nodes no enlarged or pathological lymphadenopathy seen. Mild iliac region lymph nodes enlargements since 06/07/2009 Size about 1.3 cm. mild splenomegaly Repeat sonogram of abdomen On 12/20/2017 shows mild splenomegaly now 12.9 cm compared to 13.2 cm on 03/02/2017 On 02/09/2018 patient was evaluated by Dr. Alvarenga senior outside sales representative at [facility] and his labs done there showed white blood count 198.7 hemoglobin 13.4 hematocrit 34.4 platelets 188,000 IgA 100, IgM 43, IgG 889, SPEP no monoclonal peak, serum light chains showed kappa 2.44, lambda 2.9, kappa/lambda ratio 0.84 which was normal. And his recommendations were serial CT scan of chest abdomen pelvis once a year or sooner if needed. And continue to monitor CBC unless white blood count more than 200,000 as it may be associated with hyperviscosity and treatment options if decided to treat his recommendation was short course of bendamustine/Rituxan up to 4 cycles to achieve an initial response followed by ibrutinib maintenance. CT scan of chest abdomen pelvis done on 04/25/2018 showed very mild progression in the size and number of axillary, just tunnel, hilar and pelvic lymphadenopathy since 11/25/2016 Mild increase in size of spleen since 11/25/2016, now 14.8 cm compared to 13.4 before.Treated with ibrutinib for progressive CLL/SLL,,Started on 420 mg daily along with allopurinol on June 02, 2019 , which was eventually discontinued on August 03, 2019 because of episode of palpitation causing lightheadedness dizziness which improved after stopping ibrutinib, patient was referred to cardiology and eventually was diagnosed with A. fib which was medically managed and was started on Eliquis also but due to progressive disease he was started on bendamustine/Rituxan on September 13, 2019, patient responded well after third cycle which was given on November 08, 2019 his white blood count went down to 17.9 from 290,000 prior to the BR regimen, and resolution of peripheral lymphadenopathy, subsequently patient developed Covid infection for which he was admitted to hospital and patient did not receive further treatment after last dose of bendamustine/Rituxan on November 07 and 2019. Covid infection requiring hospitalization for 20 days but was not intubated but required oxygen and was discharged home on oxygen in January 2020 Mr Garcia began Venclexta starter pack on 11/27/2020 at which time his WBC was 232 and his lymphocytes were 82%. Severe prostate gland enlargement Plan: Discussed with patient regarding his labs, Checked on January 27, 2021 showed white blood count 4.8 hemoglobin 12.4 hematocrit 33.2 platelets 115,000 ANC 1210 CMP within normal limits Clinically, patient doing well with no new signs symptom, no B symptoms, tolerating venetoclax 400 mg p.o. daily, well We will start him on Rituxan q. 28 days x 6, he will receive his first cycle at dose 375 mg per metered square and then starting cycle 2-6, Rituxan dose will be increased to 500 mg/m??? every 28 days. Return to clinic in 1 week with CBC CMP Signed By: Rosanne Plaza M.D. <<Signature on File>>
[2021-02-03 09:21] LABS: Basophils % 0.3 %; Eosinophils % 0.7 %; Hemoglobin 12.9 g/dL (11.7-16.6); Lymphocytes # 1.6 10^3/uL (0.8-4.8); Lymphocytes % 53.5 %; Mean Corpuscular HGB Conc 33.9 g/dL (30.0-36.0); Mean Corpuscular Hemoglobin 32.9 pg (28.0-34.0); Mean Corpuscular Volume 96.9 fl (80-94); Mean Platelet Volume 10.6 fL (7.4-10.4); Monocytes # 0.2 10^3/uL (0.2-0.9); Monocytes % 7.3 %; Neutrophils % 31.3 %; Nucleated Red Blood Cells % 0 %; Platelet Count 121 10^3/cmm (130-400); Red Blood Count 3.92 10^6/uL (4.1-5.3); Red Cell Distribution Width 12.9 % (12.1-15.1)
[2021-02-03 10:04] LABS: Alanine Aminotransferase 13 U/L (0-41); Albumin Level 4.4 g/dL (3.5-5.2); Alkaline Phosphatase 62 IU/L (40-130); Anion Gap 17.9 (5-19); Aspartate Amino Transferase 17 U/L (0-40); Blood Urea Nitrogen 18 mg/dL (8-23); Calcium 8.9 mg/dL (8.5-10.5); Carbon Dioxide 22 mmol/L (22-29); Chloride 104 mmol/L (98-107); Globulin 2.8 g/dL (1.3-4.6); Glomerular Filtration Rate 83.4 mL/min (90-130); Glucose 122 mg/dL (65-115); Osmolality Calculated 293 mOsm/kg (285-295); Potassium 3.9 mmol/L (3.5-5.1); Sodium 140 mmol/L (136-145); Total Bilirubin 0.5 mg/dL (0.15-1.2); Total Protein 7.2 g/dL (6.6-8.7)
[2021-02-03 10:22] LABS: Slide Review Slide Review Perform
[2021-02-03 10:24] LABS: Neutrophils # 0.95 10^3/uL (1.8-7.7)
--- NOTE | 2021-02-07 12:17 | ONC FU_ITS ---
Dr. Plaza follow up note Patient: Lb Garcia Unit #: [id number]: 1950 Dicatated By: Rosanne Plaza M.D.Date of Visit:Feb 03, 2021 Onc Med Follow-up/Prog Note History of Present Illness: Mr. Garcia is a 70 -year-old gentleman with a past history of elevated white blood count. He reports that he had been having low-grade fever since February 2016. He presented initially with night sweats and was diagnosed with pneumonia. His white blood count on October 06, 2016 was reported at 32,000. His hemoglobin was 14.4 platelets 170,000 and his differential reported lymphocytes of 83.2% neutrophils 13.7% absolute lymphocyte count was 26,700. Follow-up CBC on 10/28/2016 reported a white count of 33,700 and differential showed lymphocytes and 78.5%. He remained on observation. F/u CT of the chest abdomen pelvis on 04/25/2018 and when compared with a CT scan of chest abdomen pelvis from 11/25/2016 there was very mild progression in size and number of axillary, mediastinal and hilar as well as pelvic adenopathy. The spleen size is 14.8 cm compared to 13.4 cm on 11/25/2016. Follow-up CT of the chest abdomen pelvis on 01/05/2019 reported stable bilateral axillary, mediastinal, right hilar lymphadenopathy with no evidence of progression. The splenomegaly he had marginally increased from 04/25/2018. Was noted that he had progressive pelvic lymphadenopathy with a lymph node increased from 1.1 to 1.5 cm and 1.3 to 1.7 cm in the left external iliac. The left internal iliac measured 1.8 compared to 1.4 cm. It was noted that he had a large prostate as well. He did have follow-up repeat CT scan of the chest abdomen pelvis on May 19, 2019 which showed axillary, mediastinal and hilar lymph nodes which were indeterminate with no interval change. The largest lymph node measured at the right hilum was 14 mm. The pelvic lymphadenopathy was without significant progression in size or number since January 05, 2019. There were numerous enlarged lymph nodes. Some measures slightly smaller in size other slightly larger in size which was felt to be due to technical variation. The largest lymph node was measured at 19 mm in the left ureter region. He had markedly enlarged prostate gland. This splenomegaly was at 16.5 cm. It was noted that he had cholelithiasis. Mr. Garcia was started on ibrutinib 420 mg daily along with allopurinol on June 02, 2019. Unfortunately the ibrutinib was discontinued on August 03, 2019 at which time he had called reporting episodes of palpitations lasting for a long time . The ibrutinib was stopped and he was referred to cardiology. He had no further palpitations after stopping the ibrutinib. Mr. Garcia was here for follow-up on September 13, 2019. He was having no significant symptoms but had persistent peripheral lymphadenopathy involving the neck and bilateral axilla and inguinal area. He had no headaches vision changes fever or chills. He had no night sweats or weight loss or any recurrent fever at that time. Had any abdominal fullness as well. He did have follow-up echocardiogram on August 28, 2019 which reported a left ventricular size and systolic ejection fraction of 60%. There was trace mitral valve regurgitation. He did have cardiac monitoring for 15 days he had had any report preliminary report per [employer] access reported baseline rhythm was found to be normal sinus with a rate of 61 bpm there was one episode of atrial fibrillation with rapid ventricular rate of 110 lasting for 2 minutes. He is followed with Dr. Murillo regarding the monitor. White count on the September 13, 2019 visit was noted to be 1 29,000. Previously on August 16 it was 235,000 and on May 21, 2019 was 303,000., was recommended to pursue systemic therapy with bendamustine Rituxan. He began his first cycle on September 13, 2019. His last treatment with Rituxan bendamustine was on November 072019. He was admitted to [facility] on 12/29/2019 and treated for severe COVID-19 infection-pneumonia: He required oxygen support in the hospital with groundglass opacities on chest x-ray and CT. He was pretreated with remdesivir, Decadron and empirically covered with antibiotics on presentation due to sepsis treated with Zosyn. Subsequently Primaxin and vancomycin was added as he did have neutropenia in the hospital with his ANC as low as 280. He did slowly recover and was discharged on January 10, 2020. He was readmitted to [facility] on January 23, 2020 with acute sepsis. He was admitted to the general medical floor???Covid unit started on broad-spectrum antibiotic therapy and monitor. His cultures were all unremarkable C. difficile was negative MRSA was negative urine bacterial antigens negative, stool studies negative, CMV unremarkable, influenza negative, parainfluenza negative, galactomannan pending SARS rapid positive on previous admission all cultures were negative this admission. He did have transaminitis, elevated alk phos and right upper quadrant pain in the right upper quadrant ultrasound was negative for cholecystitis. HIDA scan no evidence of acute or chronic cystitis, gallbladder ejection was around 90%. CT of the chest showed bilateral groundglass infiltrates areas of consolidation. At the time there was some concern that he may have had healthcare associated pneumonia he was continued on broad-spectrum antibiotics. He required up to 5 L nasal cannula no shortness of breath complaints no cough. He continued to have high-grade fevers despite being on broad spectrum antibiotics for 72 hours. After discussion with with infectious disease, thought was the patient could have continued COVID-19 infection, thus rems does a fair and Decadron were restarted. For the next 48 hours the patient remained asymptomatic and remained afebrile for the next 48 hours. However he started to develop anemia with his hemoglobin is 7.7 neutropenia at 530 and thrombocytopenia with platelets as low as 90,000. After discussions with infectious disease , thought that Mr. Garcia could be suffering bone marrow suppression from the remdesivir or the COVID-19 or the antibiotics. The broad-spectrum antibiotics were deescalated to azithromycin and Levaquin that remdesivir was stopped Decadron was stopped. He received 1 unit packed red blood cells and Neupogen x2. Attempt was made to refer him to [facility] but his counts begin to recover and he began to improve and therefore the transfer was canceled. Mr. Garcia was discharged on January 23, 2020. As per patient , he was on home oxygen and wheelchair due to deconditioning for 2-1/2 months After discharge from hospital in January 2020, and then with the help of physical therapy he started recovering slowly but gradually and was following his PMD on regular basis and during follow-up in July 2020 his white blood count gone up to 80,000 and last week he got up to 186,000 and he also noticed progressive lymphadenopathy in the neck for which his PMD gave him oral antibiotic without much improvement. Patient denies any night sweats, denies any recurrent fever denies any weight loss rather weight gain, off and on abdominal fullness/bloatedness. Also complaining of left axillary lymphadenopathy. No headaches, no blurred vision or double vision, no shortness of breath at rest but dyspnea on exertion as per patient he is on Eliquis for chronic A. 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 Follow-up CT scan of neck chest abdomen pelvis done on October 28, 2020 showed extensive bilateral cervical chain lymphadenopathy involving level 1 through 5 and supraclavicular and axillary regions, largest lymph node measured up to 22 mm. Soft tissue thickening measuring 16 x 10 mm involving left vallecula and pharyngeal epiglottic fold enlarged thyroid gland extending substernal, most likely multinodular goiter. Bilateral enhancing subcentimeter nodules with within parotid gland most likely lymph nodes and CT scan of the chest showed significant increase in size of bilateral axillary and left supraclavicular lymph nodes and mediastinum and hilar region remains stable since January 17, 2020. Significant increase in size and number of lymph nodes along the iliac chains bilaterally extending into obturator and inguinal region. Marked prostate gland enlargement, splenomegaly, spleen measures 16.2 cm compared to 13.3 cm on prior study. Cholelithiasis without acute cholecystitis. Mr. Garcia began the venetoclax starter pack With ramp-up plan on November 27, 2020 for treatment of his CLL. , On January 21, 2021 his dose was ramped up all the way up to 400 mg p.o. daily, which he is tolerating well, Rituxan q. 28 days x 6 was started on January 28, 2021, as per protocol he received first cycle of Rituxan at a dose of 375 mg per metered square and cycle 2-6 he will receive Rituxan 500 mg per metered square q. 28 days Came for follow-up, denies any specific complaints, no fever chills, no nausea or vomiting, no diarrhea or constipation, no night sweats, no abdominal fullness, no more cervical lymphadenopathy. Tolerating venetoclax 400 mg p.o. daily well also tolerated his first cycle of Rituxan well . Medications: AmLODIPine Besylate 1 Tablet (of 10 mg) Oral daily, Apixaban (5 mg) Tablet Oral b.i.d., Aspirin 1 Tablet (of 81 mg) Tablet, enteric coated Oral daily, Finasteride 1 Tablet (of 5 mg) Oral daily, Furosemide 1 Tablet (of 20 mg) Oral daily, Lisinopril 1 Tablet (of 20 mg) Oral daily, Lovastatin ER 1 Tablet (of 40 mg) Tablet SR 24 HR Oral daily, Metoprolol Tartrate (25 mg) Tablet Oral b.i.d. Allergies: No Known Allergies. Review of Systems: Review of Systems is not available for this patient. Vital Signs: Performed on Feb 03, 2021 11:13 Height - 69.50 in Weight - 224.0 lbs (LOW) BSA - 2.18 sq.m BMI - 32.60 (HIGH) Temperature - 98.2 F (LOW) Pulse - 63 /min Respiration - 18 /min BP - 119/71 mm(hg) O2 Sat - 97 % Pain - 0 Fatigue - 0 Performance Status: 0 - Fully active, able to carry on all predisease activities without restrictions. (ECOG) Physical Examination: ENMT - No mouth sores, no thrush, no jaundice, shotty cervical lymphadenopathy, Respiratory - Lungs are clear to auscultation, Cardiovascular - Regular rate and rhythm of heart, Abdomen - Soft, bowel sounds present, Extremities - No visible edema. Lab/Imaging: Test performed on Jan 20, 2021 08:03 WBC 5.8 10^9/L RBC 3.62 10^12/L HGB 12.2 g/dL HCT 38.6 % MCV 106.6 fl MCH 33.7 pg MCHC 31.6 g/dL RDW 13.7 % Platelet Count 96 10^9/L MPV 12.3 fL Neutrophils (Gran) 1.3 10^9/L Lymphocytes 3.074 10^9/L Monocytes 0.232 10^9/L Eosinophils 0.058 10^9/L Blasts 6 % Test performed on Jan 13, 2021 09:02 Basophils 0.0294 10^9/L NRBCs 0.0 /100 WBC Test performed on Dec 26, 2020 12:16 Glucose 154 mg/dL BUN 13 mg/dL Creatinine 0.8 mg/dL Cr Clearance (Est) 122.16 mL/min Sodium 138 mmol/L Potassium 4.1 mmol/L Chloride 101 mmol/L CO2 24 mmol/L Calcium 9.0 mg/dL Protein, Total 7.3 g/dL Albumin 2.8 g/dL Globulin 2.8 g/dL Bilirubin, Total 0.9 mg/dL Alkaline Phosphatase 68 International Units/L AST (SGOT) 15 International Units/L ALT (SGPT) 11 International Units/L Test performed on Dec 19, 2020 09:55 Uric Acid 7.0 mg/dL Anion Gap 15.0 eGFR 83.4 mL/min Osmolality - Calculated 289 mOsm/kg Neutrophil % 1.8 % Lymphocyte % 86.9 % Monocyte % 11.2 % Eosinophil % 0.0 % Basophils % 0.0 % NRBC % 0 % CBC Slide Review Slide Review Perform SLIDE REVIEW AGREES WITH AUTOMATED RESULTS ST Impression: 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 Discussed with patient regarding his CT scan finding and lab workup. His white blood count is elevated due to lymphocytosis at 48.7 with a normal hemoglobin and hematocrit as well as platelets No evidence of peripheral lymphadenopathy or central lymphadenopathy except mild lymphadenopathy in pelvis maximum size 1.3 [address] scan of pelvis on 06/07/2009 it was 0.8 cm. Incidental finding, large thyroid goiter causing impingement on trachea and esophagus at the cervicothoracic junction the vast majority of monotypic B cells express CD38 next CLL panel, FISH showed positive for deletion of TP53 (unfavorable prognosis and chemotherapy resistance) And IGHV status shows non-mutation e.g. poor prognostic features Quantitative immunoglobulins checked on 11/04/2016 showed IgG 1100 normal being 700-1600 IgM 53 normal being 40-230 IgA 150 normal being 70-400 Beta-2 microglobulin 0.230 normal being 0.109 -0.253 CT scan of chest abdomen pelvis done on 11/25/2016 showed bilateral lower lobe parenchymal scarring with bilateral lower lobe bronchiectasis segment similar to 06/07/2009. Thyroid goiter with tracheal and esophageal impingements at cervicothoracic junction. Nonspecific right hilar lymph nodes no enlarged or pathological lymphadenopathy seen. Mild iliac region lymph nodes enlargements since 06/07/2009 Size about 1.3 cm. mild splenomegaly Repeat sonogram of abdomen On 12/20/2017 shows mild splenomegaly now 12.9 cm compared to 13.2 cm on 03/02/2017 On 02/09/2018 patient was evaluated by Dr. Alvarenga scientific manager at [facility] and his labs done there showed white blood count 198.7 hemoglobin 13.4 hematocrit 34.4 platelets 188,000 IgA 100, IgM 43, IgG 889, SPEP no monoclonal peak, serum light chains showed kappa 2.44, lambda 2.9, kappa/lambda ratio 0.84 which was normal. And his recommendations were serial CT scan of chest abdomen pelvis once a year or sooner if needed. And continue to monitor CBC unless white blood count more than 200,000 as it may be associated with hyperviscosity and treatment options if decided to treat his recommendation was short course of bendamustine/Rituxan up to 4 cycles to achieve an initial response followed by ibrutinib maintenance. CT scan of chest abdomen pelvis done on 04/25/2018 showed very mild progression in the size and number of axillary, just tunnel, hilar and pelvic lymphadenopathy since 11/25/2016 Mild increase in size of spleen since 11/25/2016, now 14.8 cm compared to 13.4 before.Treated with ibrutinib for progressive CLL/SLL,,Started on 420 mg daily along with allopurinol on June 02, 2019 , which was eventually discontinued on August 03, 2019 because of episode of palpitation causing lightheadedness dizziness which improved after stopping ibrutinib, patient was referred to cardiology and eventually was diagnosed with A. fib which was medically managed and was started on Eliquis also but due to progressive disease he was started on bendamustine/Rituxan on September 13, 2019, patient responded well after third cycle which was given on November 08, 2019 his white blood count went down to 17.9 from 290,000 prior to the BR regimen, and resolution of peripheral lymphadenopathy, subsequently patient developed Covid infection for which he was admitted to hospital and patient did not receive further treatment after last dose of bendamustine/Rituxan on November 07 and 2019. Covid infection requiring hospitalization for 20 days but was not intubated but required oxygen and was discharged home on oxygen in January 2020 Mr Garcia began Venclexta starter pack on 11/27/2020 at which time his WBC was 232 and his lymphocytes were 82%. Severe prostate gland enlargement Plan: Discussed with patient regarding his labs white blood count 3000 compared to 5800 on January 20, 2021 hemoglobin 12.9 g medical 38 platelets 121,000 compared to 96,000 previously absolute neutrophil count 950 compared to 1300 on January 20, 2021 lymphocytes 1600 Clinically, patient is doing well with no new signs symptoms, tolerating venetoclax 400 mg p.o. daily. His lab work-up shows progressive neutropenia, will continue same and repeat CBC in 1 week if neutrophil counts dropped to below 500 e.g. grade 3 or if patient spikes any fever, we will adjust his venetoclax dose to 300 mg p.o. daily. Patient was advised to call us in case of any fever otherwise return to clinic in 1 week with CBC Signed By: Rosanne Plaza M.D. <<Signature on File>>
== END 2021-02-04 23:59 | disposition home or self-care (01) ==
LOC: ONCMED 06:27
PROVIDERS: PCP Nurse Practitioner; Visit Provider Internal Medicine Hematology & Oncology
DX: Z51.12 Encounter for antineoplastic immunotherapy (principal); C91.10 Chronic lymphocytic leukemia of B-cell type not having achieved remission; E04.1 Nontoxic single thyroid nodule; N40.0 Benign prostatic hyperplasia without lower urinary tract symptoms; Z86.16 Personal history of COVID-19; Z79.899 Other long term (current) drug therapy; Z92.21 Personal history of antineoplastic chemotherapy
CPT/HCPCS: 36415; 80053; 85025; 96375; 96413; 96415; 99214; 99215; J1200; J2175; J7040; Q5115

== ENCOUNTER → 2021-02-10 08:36 | Outpatient (BNVA) | payer MEDICARE, OTHER, SELFPAY | PROVIDERS: PCP Nurse Practitioner; Visit Provider Internal Medicine Hematology & Oncology | DX: C91.10 Chronic lymphocytic leukemia of B-cell type not having achieved remission (principal) | CPT/HCPCS: 85025 ==

== ENCOUNTER → 2021-03-03 08:53 | Outpatient (BNVA) | payer MEDICARE, OTHER, SELFPAY | PROVIDERS: PCP Nurse Practitioner; Visit Provider Internal Medicine Medical Oncology | DX: C91.10 Chronic lymphocytic leukemia of B-cell type not having achieved remission (principal) | CPT/HCPCS: 85025 ==

== ENCOUNTER 2021-03-05 06:28 | Outpatient (RCR) | payer MEDICARE, OTHER, SELFPAY ==
[2021-02-24 09:16] LABS: Basophils % 0.2 %; Hematocrit 43.6 % (42.0-52.0); Hemoglobin 14.6 g/dL (11.7-16.6); Lymphocytes # 2.3 10^3/uL (0.8-4.8); Lymphocytes % 44.6 %; Mean Corpuscular HGB Conc 33.5 g/dL (30.0-36.0); Mean Corpuscular Hemoglobin 32.3 pg (28.0-34.0); Mean Corpuscular Volume 96.5 fl (80-94); Mean Platelet Volume 10.6 fL (7.4-10.4); Monocytes # 0.4 10^3/uL (0.2-0.9); Monocytes % 8.7 %; Neutrophils # 2.08 10^3/uL (1.8-7.7); Nucleated Red Blood Cells % 0 %; Platelet Count 142 10^3/cmm (130-400); Red Blood Count 4.52 10^6/uL (4.1-5.3); Red Cell Distribution Width 12.7 % (12.1-15.1); White Blood Count 5.1 10^3/uL (4.0-10.0)
[2021-02-24 09:38] LABS: Slide Review Slide Review Perform
[2021-02-26] MEDS: diphenhydrAMINE 50 mg/mL SDV 1mL 25 MG IV (09:20)
[2021-02-26] MEDS: acetaminophen 325 mg Tablet 650 MG PO (09:20)
[2021-03-05 09:26] LABS: Hemoglobin 13.9 g/dL (11.7-16.6); Lymphocytes # 2.1 10^3/uL (0.8-4.8); Lymphocytes % 47.1 %; Mean Corpuscular HGB Conc 33.9 g/dL (30.0-36.0); Mean Corpuscular Volume 94.5 fl (80-94); Mean Platelet Volume 10.3 fL (7.4-10.4); Monocytes # 0.4 10^3/uL (0.2-0.9); Neutrophils # 1.62 10^3/uL (1.8-7.7); Neutrophils % 37.3 %; Nucleated Red Blood Cells % 0 %; Platelet Count 131 10^3/cmm (130-400); Red Blood Count 4.34 10^6/uL (4.1-5.3); Red Cell Distribution Width 12.7 % (12.1-15.1); White Blood Count 4.4 10^3/uL (4.0-10.0)
[2021-03-05 09:44] LABS: Albumin Level 4.4 g/dL (3.5-5.2); Alkaline Phosphatase 71 IU/L (40-130); Blood Urea Nitrogen 18 mg/dL (8-23); Calcium 8.8 mg/dL (8.5-10.5); Carbon Dioxide 21 mmol/L (22-29); Chloride 102 mmol/L (98-107); Globulin 2.9 g/dL (1.3-4.6); Glomerular Filtration Rate 111.5 mL/min (90-130); Glucose 144 mg/dL (65-115); Osmolality Calculated 288 mOsm/kg (285-295); Sodium 137 mmol/L (136-145); Total Bilirubin 0.5 mg/dL (0.15-1.2); Total Protein 7.3 g/dL (6.6-8.7)
[2021-03-05 09:47] LABS: Anion Gap 18.2 (5-19); Potassium 4.2 mmol/L (3.5-5.1)
[2021-03-05 09:48] LABS: Alanine Aminotransferase 18 U/L (0-41); Aspartate Amino Transferase 27 U/L (0-40)
[2021-03-05 10:01] LABS: Slide Review Slide Review Perform
--- NOTE | 2021-03-05 15:20 | ONC FU_ITS ---
Dr. Plaza follow up note Patient: Lb Garcia Unit #: [id number]: [id number] Dicatated By: Rosanne Plaza M.D.Date of Visit:Mar 05, 2021 Onc Med Follow-up/Prog Note History of Present Illness: Mr. Garcia is a 70 -year-old gentleman with a past history of elevated white blood count. He reports that he had been having low-grade fever since February 2016. He presented initially with night sweats and was diagnosed with pneumonia. His white blood count on October 06, 2016 was reported at 32,000. His hemoglobin was 14.4 platelets 170,000 and his differential reported lymphocytes of 83.2% neutrophils 13.7% absolute lymphocyte count was 26,700. Follow-up CBC on 10/28/2016 reported a white count of 33,700 and differential showed lymphocytes and 78.5%. He remained on observation. F/u CT of the chest abdomen pelvis on 04/25/2018 and when compared with a CT scan of chest abdomen pelvis from 11/25/2016 there was very mild progression in size and number of axillary, mediastinal and hilar as well as pelvic adenopathy. The spleen size is 14.8 cm compared to 13.4 cm on 11/25/2016. Follow-up CT of the chest abdomen pelvis on 01/05/2019 reported stable bilateral axillary, mediastinal, right hilar lymphadenopathy with no evidence of progression. The splenomegaly he had marginally increased from 04/25/2018. Was noted that he had progressive pelvic lymphadenopathy with a lymph node increased from 1.1 to 1.5 cm and 1.3 to 1.7 cm in the left external iliac. The left internal iliac measured 1.8 compared to 1.4 cm. It was noted that he had a large prostate as well. He did have follow-up repeat CT scan of the chest abdomen pelvis on May 19, 2019 which showed axillary, mediastinal and hilar lymph nodes which were indeterminate with no interval change. The largest lymph node measured at the right hilum was 14 mm. The pelvic lymphadenopathy was without significant progression in size or number since January 05, 2019. There were numerous enlarged lymph nodes. Some measures slightly smaller in size other slightly larger in size which was felt to be due to technical variation. The largest lymph node was measured at 19 mm in the left ureter region. He had markedly enlarged prostate gland. This splenomegaly was at 16.5 cm. It was noted that he had cholelithiasis. Mr. Garcia was started on ibrutinib 420 mg daily along with allopurinol on June 02, 2019. Unfortunately the ibrutinib was discontinued on August 03, 2019 at which time he had called reporting episodes of palpitations lasting for a long time . The ibrutinib was stopped and he was referred to cardiology. He had no further palpitations after stopping the ibrutinib. Mr. Garcia was here for follow-up on September 13, 2019. He was having no significant symptoms but had persistent peripheral lymphadenopathy involving the neck and bilateral axilla and inguinal area. He had no headaches vision changes fever or chills. He had no night sweats or weight loss or any recurrent fever at that time. Had any abdominal fullness as well. He did have follow-up echocardiogram on August 28, 2019 which reported a left ventricular size and systolic ejection fraction of 60%. There was trace mitral valve regurgitation. He did have cardiac monitoring for 15 days he had had any report preliminary report per [employer] access reported baseline rhythm was found to be normal sinus with a rate of 61 bpm there was one episode of atrial fibrillation with rapid ventricular rate of 110 lasting for 2 minutes. He is followed with Dr. Murillo regarding the monitor. White count on the September 13, 2019 visit was noted to be 1 29,000. Previously on August 16 it was 235,000 and on May 21, 2019 was 303,000., was recommended to pursue systemic therapy with bendamustine Rituxan. He began his first cycle on September 13, 2019. His last treatment with Rituxan bendamustine was on November 072019. He was admitted to [facility] on 12/29/2019 and treated for severe COVID-19 infection-pneumonia: He required oxygen support in the hospital with groundglass opacities on chest x-ray and CT. He was pretreated with remdesivir, Decadron and empirically covered with antibiotics on presentation due to sepsis treated with Zosyn. Subsequently Primaxin and vancomycin was added as he did have neutropenia in the hospital with his ANC as low as 280. He did slowly recover and was discharged on January 10, 2020. He was readmitted to [facility] on January 23, 2020 with acute sepsis. He was admitted to the general medical floor???Covid unit started on broad-spectrum antibiotic therapy and monitor. His cultures were all unremarkable C. difficile was negative MRSA was negative urine bacterial antigens negative, stool studies negative, CMV unremarkable, influenza negative, parainfluenza negative, galactomannan pending SARS rapid positive on previous admission all cultures were negative this admission. He did have transaminitis, elevated alk phos and right upper quadrant pain in the right upper quadrant ultrasound was negative for cholecystitis. HIDA scan no evidence of acute or chronic cystitis, gallbladder ejection was around 90%. CT of the chest showed bilateral groundglass infiltrates areas of consolidation. At the time there was some concern that he may have had healthcare associated pneumonia he was continued on broad-spectrum antibiotics. He required up to 5 L nasal cannula no shortness of breath complaints no cough. He continued to have high-grade fevers despite being on broad spectrum antibiotics for 72 hours. After discussion with with infectious disease, thought was the patient could have continued COVID-19 infection, thus rems does a fair and Decadron were restarted. For the next 48 hours the patient remained asymptomatic and remained afebrile for the next 48 hours. However he started to develop anemia with his hemoglobin is 7.7 neutropenia at 530 and thrombocytopenia with platelets as low as 90,000. After discussions with infectious disease , thought that Mr. Garcia could be suffering bone marrow suppression from the remdesivir or the COVID-19 or the antibiotics. The broad-spectrum antibiotics were deescalated to azithromycin and Levaquin that remdesivir was stopped Decadron was stopped. He received 1 unit packed red blood cells and Neupogen x2. Attempt was made to refer him to [facility] but his counts begin to recover and he began to improve and therefore the transfer was canceled. Mr. Garcia was discharged on January 23, 2020. As per patient , he was on home oxygen and wheelchair due to deconditioning for 2-1/2 months After discharge from hospital in January 2020, and then with the help of physical therapy he started recovering slowly but gradually and was following his PMD on regular basis and during follow-up in July 2020 his white blood count gone up to 80,000 and last week he got up to 186,000 and he also noticed progressive lymphadenopathy in the neck for which his PMD gave him oral antibiotic without much improvement. Patient denies any night sweats, denies any recurrent fever denies any weight loss rather weight gain, off and on abdominal fullness/bloatedness. Also complaining of left axillary lymphadenopathy. No headaches, no blurred vision or double vision, no shortness of breath at rest but dyspnea on exertion as per patient he is on Eliquis for chronic A. 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 Murillo, rf technician. Follow-up CT scan of neck chest abdomen pelvis done on October 28, 2020 showed extensive bilateral cervical chain lymphadenopathy involving level 1 through 5 and supraclavicular and axillary regions, largest lymph node measured up to 22 mm. Soft tissue thickening measuring 16 x 10 mm involving left vallecula and pharyngeal epiglottic fold enlarged thyroid gland extending substernal, most likely multinodular goiter. Bilateral enhancing subcentimeter nodules with within parotid gland most likely lymph nodes and CT scan of the chest showed significant increase in size of bilateral axillary and left supraclavicular lymph nodes and mediastinum and hilar region remains stable since January 17, 2020. Significant increase in size and number of lymph nodes along the iliac chains bilaterally extending into obturator and inguinal region. Marked prostate gland enlargement, splenomegaly, spleen measures 16.2 cm compared to 13.3 cm on prior study. Cholelithiasis without acute cholecystitis. Mr. Garcia began the venetoclax starter pack With ramp-up plan on November 27, 2020 for treatment of his CLL. , On January 21, 2021 his dose was ramped up all the way up to 400 mg p.o. daily. He became neutropenic requiring a dose reduction to 300mg po daily. Rituxan q. 28 days x 6 was started on January 28, 2021, as per protocol he received first cycle of Rituxan at a dose of 375 mg per metered square and cycle 2-6 he will receive Rituxan 500 mg per metered square q. 28 days Came for follow-up, denies any specific complaints, no fever chills, no nausea or vomiting, no diarrhea constipation, no melena or hematochezia, no hemoptysis or hematemesis, no night sweats, no recurrent fever, no weight loss, no peripheral lymphadenopathy or abdominal fullness, tolerating monthly Rituxan along with venetoclax well . Medications: AmLODIPine Besylate 1 Tablet (of 10 mg) Oral daily, Apixaban (5 mg) Tablet Oral b.i.d., Aspirin 1 Tablet (of 81 mg) Tablet, enteric coated Oral daily, Finasteride 1 Tablet (of 5 mg) Oral daily, Furosemide 1 Tablet (of 20 mg) Oral daily, Lisinopril 1 Tablet (of 20 mg) Oral daily, Lovastatin ER 1 Tablet (of 40 mg) Tablet SR 24 HR Oral daily, Metoprolol Tartrate (25 mg) Tablet Oral b.i.d. Allergies: No Known Allergies. Review of Systems: Review of Systems is not available for this patient. Vital Signs: Performed on Mar 05, 2021 08:24 Height - 69.50 in Weight - 230 lbs (HIGH) BSA - 2.20 sq.m BMI - 33.48 (HIGH) Temperature - 98.3 F (LOW) Pulse - 64 /min Respiration - 18 /min BP - 143/77 mm(hg) (HIGH) O2 Sat - 96 % Pain - 0 Fatigue - 0 Performance Status: 0 - Fully active, able to carry on all predisease activities without restrictions. (ECOG) Physical Examination: ENMT - No mouth sores, no thrush, no jaundice, no cervical lymphadenopathy or axillary lymphadenopathy, Respiratory - Lungs are clear to auscultation, Cardiovascular - Regular rate and rhythm of heart, Abdomen - Soft, bowel sounds present, Extremities - No visible edema. Lab/Imaging: Test performed on Mar 03, 2021 08:15 WBC 4.3 10^9/L RBC 4.39 10^12/L HGB 14.0 g/dL HCT 42.2 % MCV 96.1 fl MCH 31.9 pg MCHC 33.2 g/dL RDW 12.6 % Platelet Count 135 10^9/L MPV 10.6 fL Neutrophils (Gran) 1.68 10^9/L Lymphocytes 2.0898 10^9/L Monocytes 0.344 10^9/L Eosinophils 0 10^9/L Basophils 0.0086 10^9/L Test performed on Jan 20, 2021 08:03 Blasts 6 % Test performed on Jan 13, 2021 09:02 NRBCs 0.0 /100 WBC Test performed on Dec 26, 2020 12:16 Glucose 154 mg/dL BUN 13 mg/dL Creatinine 0.8 mg/dL Cr Clearance (Est) 122.16 mL/min Sodium 138 mmol/L Potassium 4.1 mmol/L Chloride 101 mmol/L CO2 24 mmol/L Calcium 9.0 mg/dL Protein, Total 7.3 g/dL Albumin 2.8 g/dL Globulin 2.8 g/dL Bilirubin, Total 0.9 mg/dL Alkaline Phosphatase 68 International Units/L AST (SGOT) 15 International Units/L ALT (SGPT) 11 International Units/L Test performed on Dec 19, 2020 09:55 Uric Acid 7.0 mg/dL Anion Gap 15.0 eGFR 83.4 mL/min Osmolality - Calculated 289 mOsm/kg Neutrophil % 1.8 % Lymphocyte % 86.9 % Monocyte % 11.2 % Eosinophil % 0.0 % Basophils % 0.0 % NRBC % 0 % CBC Slide Review Slide Review Perform SLIDE REVIEW AGREES WITH AUTOMATED RESULTS ST Impression: 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 Discussed with patient regarding his CT scan finding and lab workup. His white blood count is elevated due to lymphocytosis at 48.7 with a normal hemoglobin and hematocrit as well as platelets No evidence of peripheral lymphadenopathy or central lymphadenopathy except mild lymphadenopathy in pelvis maximum size 1.3 [address] scan of pelvis on 06/07/2009 it was 0.8 cm. Incidental finding, large thyroid goiter causing impingement on trachea and esophagus at the cervicothoracic junction the vast majority of monotypic B cells express CD38 next CLL panel, FISH showed positive for deletion of TP53 (unfavorable prognosis and chemotherapy resistance) And IGHV status shows non-mutation e.g. poor prognostic features Quantitative immunoglobulins checked on 11/04/2016 showed IgG 1100 normal being 700-1600 IgM 53 normal being 40-230 IgA 150 normal being 70-400 Beta-2 microglobulin 0.230 normal being 0.109 -0.253 CT scan of chest abdomen pelvis done on 11/25/2016 showed bilateral lower lobe parenchymal scarring with bilateral lower lobe bronchiectasis segment similar to 06/07/2009. Thyroid goiter with tracheal and esophageal impingements at cervicothoracic junction. Nonspecific right hilar lymph nodes no enlarged or pathological lymphadenopathy seen. Mild iliac region lymph nodes enlargements since 06/07/2009 Size about 1.3 cm. mild splenomegaly Repeat sonogram of abdomen On 12/20/2017 shows mild splenomegaly now 12.9 cm compared to 13.2 cm on 03/02/2017 On 02/09/2018 patient was evaluated by Dr. Alvarenga fashion merchandiser at [facility] and his labs done there showed white blood count 198.7 hemoglobin 13.4 hematocrit 34.4 platelets 188,000 IgA 100, IgM 43, IgG 889, SPEP no monoclonal peak, serum light chains showed kappa 2.44, lambda 2.9, kappa/lambda ratio 0.84 which was normal. And his recommendations were serial CT scan of chest abdomen pelvis once a year or sooner if needed. And continue to monitor CBC unless white blood count more than 200,000 as it may be associated with hyperviscosity and treatment options if decided to treat his recommendation was short course of bendamustine/Rituxan up to 4 cycles to achieve an initial response followed by ibrutinib maintenance. CT scan of chest abdomen pelvis done on 04/25/2018 showed very mild progression in the size and number of axillary, just tunnel, hilar and pelvic lymphadenopathy since 11/25/2016 Mild increase in size of spleen since 11/25/2016, now 14.8 cm compared to 13.4 before.Treated with ibrutinib for progressive CLL/SLL,,Started on 420 mg daily along with allopurinol on June 02, 2019 , which was eventually discontinued on August 03, 2019 because of episode of palpitation causing lightheadedness dizziness which improved after stopping ibrutinib, patient was referred to cardiology and eventually was diagnosed with A. fib which was medically managed and was started on Eliquis also but due to progressive disease he was started on bendamustine/Rituxan on September 13, 2019, patient responded well after third cycle which was given on November 08, 2019 his white blood count went down to 17.9 from 290,000 prior to the BR regimen, and resolution of peripheral lymphadenopathy, subsequently patient developed Covid infection for which he was admitted to hospital and patient did not receive further treatment after last dose of bendamustine/Rituxan on November 07 and 2019. Covid infection requiring hospitalization for 20 days but was not intubated but required oxygen and was discharged home on oxygen in January 2020 Mr Garcia began Venclexta starter pack on 11/27/2020 at which time his WBC was 232 and his lymphocytes were 82%. Severe prostate gland enlargement Plan: Discussed with patient regarding his labs Clinically, patient doing well with no new signs symptoms just of disease progression, on exam there is no peripheral lymphadenopathy or organomegaly his lab work-up is also within normal range with mild neutropenia and thrombocytopenia, electrolytes within normal range, at this point, we will discontinue allopurinol. Patient will continue with his venetoclax 400 mg p.o. daily and he will return to clinic in 2 weeks with CBC CMP Signed By: Rosanne Plaza M.D. <<Signature on File>>
== END 2021-03-07 23:59 | disposition home or self-care (01) ==
LOC: ONCMED 06:28
PROVIDERS: PCP Nurse Practitioner; Visit Provider Internal Medicine Hematology & Oncology
DX: Z51.12 Encounter for antineoplastic immunotherapy (principal); C91.10 Chronic lymphocytic leukemia of B-cell type not having achieved remission; E04.1 Nontoxic single thyroid nodule; R59.0 Localized enlarged lymph nodes; N40.0 Benign prostatic hyperplasia without lower urinary tract symptoms; Z86.16 Personal history of COVID-19; Z79.899 Other long term (current) drug therapy
CPT/HCPCS: 36415; 80053; 85025; 96375; 96413; 96415; 99214; 99215; J1200; J7040; Q5115

== ENCOUNTER → 2021-03-19 08:56 | Outpatient (BNVA) | payer MEDICARE, OTHER, SELFPAY | PROVIDERS: PCP Nurse Practitioner; Visit Provider Internal Medicine Medical Oncology | DX: C91.10 Chronic lymphocytic leukemia of B-cell type not having achieved remission (principal) | CPT/HCPCS: 85025 ==

== ENCOUNTER 2021-03-26 06:19 | Outpatient (RCR) | payer MEDICARE, OTHER, SELFPAY ==
[2021-03-26 08:26] LABS: Basophils % 0.3 %; Eosinophils % 0.3 %; Hematocrit 45.2 % (42.0-52.0); Lymphocytes # 1.9 10^3/uL (0.8-4.8); Lymphocytes % 49.6 %; Mean Corpuscular HGB Conc 33.2 g/dL (30.0-36.0); Mean Corpuscular Hemoglobin 31.1 pg (28.0-34.0); Mean Corpuscular Volume 93.8 fl (80-94); Mean Platelet Volume 9.7 fL (7.4-10.4); Monocytes # 0.4 10^3/uL (0.2-0.9); Monocytes % 9.8 %; Neutrophils # 1.28 10^3/uL (1.8-7.7); Nucleated Red Blood Cells % 0 %; Platelet Count 142 10^3/cmm (130-400); Red Blood Count 4.82 10^6/uL (4.1-5.3); Red Cell Distribution Width 13.1 % (12.1-15.1); White Blood Count 3.9 10^3/uL (4.0-10.0)
[2021-03-26 08:50] LABS: Alanine Aminotransferase 23 U/L (0-41); Albumin Level 4.4 g/dL (3.5-5.2); Alkaline Phosphatase 106 IU/L (40-130); Anion Gap 18.8 (5-19); Aspartate Amino Transferase 25 U/L (0-40); Blood Urea Nitrogen 17 mg/dL (8-23); Calcium 8.7 mg/dL (8.5-10.5); Carbon Dioxide 21 mmol/L (22-29); Chloride 101 mmol/L (98-107); Globulin 3.1 g/dL (1.3-4.6); Glomerular Filtration Rate 95.6 mL/min (90-130); Glucose 166 mg/dL (65-115); Osmolality Calculated 289 mOsm/kg (285-295); Potassium 3.8 mmol/L (3.5-5.1); Sodium 137 mmol/L (136-145); Total Bilirubin 0.5 mg/dL (0.15-1.2); Total Protein 7.5 g/dL (6.6-8.7)
[2021-03-26 09:10] LABS: Slide Review Slide Review Perform
--- NOTE | 2021-03-26 10:07 | ONC FU_ITS ---
Dr. Plaza follow up note Patient: Lb Garcia Unit #: [id number]: 1950 Dicatated By: Rosanne Plaza M.D.Date of Visit:Mar 26, 2021 Onc Med Follow-up/Prog Note History of Present Illness: Mr. Garcia is a 70 -year-old gentleman with a past history of elevated white blood count. He reports that he had been having low-grade fever since February 2016. He presented initially with night sweats and was diagnosed with pneumonia. His white blood count on October 06, 2016 was reported at 32,000. His hemoglobin was 14.4 platelets 170,000 and his differential reported lymphocytes of 83.2% neutrophils 13.7% absolute lymphocyte count was 26,700. Follow-up CBC on 10/28/2016 reported a white count of 33,700 and differential showed lymphocytes and 78.5%. He remained on observation. F/u CT of the chest abdomen pelvis on 04/25/2018 and when compared with a CT scan of chest abdomen pelvis from 11/25/2016 there was very mild progression in size and number of axillary, mediastinal and hilar as well as pelvic adenopathy. The spleen size is 14.8 cm compared to 13.4 cm on 11/25/2016. Follow-up CT of the chest abdomen pelvis on 01/05/2019 reported stable bilateral axillary, mediastinal, right hilar lymphadenopathy with no evidence of progression. The splenomegaly he had marginally increased from 04/25/2018. Was noted that he had progressive pelvic lymphadenopathy with a lymph node increased from 1.1 to 1.5 cm and 1.3 to 1.7 cm in the left external iliac. The left internal iliac measured 1.8 compared to 1.4 cm. It was noted that he had a large prostate as well. He did have follow-up repeat CT scan of the chest abdomen pelvis on May 19, 2019 which showed axillary, mediastinal and hilar lymph nodes which were indeterminate with no interval change. The largest lymph node measured at the right hilum was 14 mm. The pelvic lymphadenopathy was without significant progression in size or number since January 05, 2019. There were numerous enlarged lymph nodes. Some measures slightly smaller in size other slightly larger in size which was felt to be due to technical variation. The largest lymph node was measured at 19 mm in the left ureter region. He had markedly enlarged prostate gland. This splenomegaly was at 16.5 cm. It was noted that he had cholelithiasis. Mr. Garcia was started on ibrutinib 420 mg daily along with allopurinol on June 02, 2019. Unfortunately the ibrutinib was discontinued on August 03, 2019 at which time he had called reporting episodes of palpitations lasting for a long time . The ibrutinib was stopped and he was referred to cardiology. He had no further palpitations after stopping the ibrutinib. Mr. Garcia was here for follow-up on September 13, 2019. He was having no significant symptoms but had persistent peripheral lymphadenopathy involving the neck and bilateral axilla and inguinal area. He had no headaches vision changes fever or chills. He had no night sweats or weight loss or any recurrent fever at that time. Had any abdominal fullness as well. He did have follow-up echocardiogram on August 28, 2019 which reported a left ventricular size and systolic ejection fraction of 60%. There was trace mitral valve regurgitation. He did have cardiac monitoring for 15 days he had had any report preliminary report per [facility] reported baseline rhythm was found to be normal sinus with a rate of 61 bpm there was one episode of atrial fibrillation with rapid ventricular rate of 110 lasting for 2 minutes. He is followed with Dr. Murillo regarding the monitor. White count on the September 13, 2019 visit was noted to be 1 29,000. Previously on August 16 it was 235,000 and on May 21, 2019 was 303,000., was recommended to pursue systemic therapy with bendamustine Rituxan. He began his first cycle on September 13, 2019. His last treatment with Rituxan bendamustine was on November 072019. He was admitted to [facility] on 12/29/2019 and treated for severe COVID-19 infection-pneumonia: He required oxygen support in the hospital with groundglass opacities on chest x-ray and CT. He was pretreated with remdesivir, Decadron and empirically covered with antibiotics on presentation due to sepsis treated with Zosyn. Subsequently Primaxin and vancomycin was added as he did have neutropenia in the hospital with his ANC as low as 280. He did slowly recover and was discharged on January 10, 2020. He was readmitted to [facility] on January 23, 2020 with acute sepsis. He was admitted to the general medical floor???Covid unit started on broad-spectrum antibiotic therapy and monitor. His cultures were all unremarkable C. difficile was negative MRSA was negative urine bacterial antigens negative, stool studies negative, CMV unremarkable, influenza negative, parainfluenza negative, galactomannan pending SARS rapid positive on previous admission all cultures were negative this admission. He did have transaminitis, elevated alk phos and right upper quadrant pain in the right upper quadrant ultrasound was negative for cholecystitis. HIDA scan no evidence of acute or chronic cystitis, gallbladder ejection was around 90%. CT of the chest showed bilateral groundglass infiltrates areas of consolidation. At the time there was some concern that he may have had healthcare associated pneumonia he was continued on broad-spectrum antibiotics. He required up to 5 L nasal cannula no shortness of breath complaints no cough. He continued to have high-grade fevers despite being on broad spectrum antibiotics for 72 hours. After discussion with with infectious disease, thought was the patient could have continued COVID-19 infection, thus rems does a fair and Decadron were restarted. For the next 48 hours the patient remained asymptomatic and remained afebrile for the next 48 hours. However he started to develop anemia with his hemoglobin is 7.7 neutropenia at 530 and thrombocytopenia with platelets as low as 90,000. After discussions with infectious disease , thought that Mr. Garcia could be suffering bone marrow suppression from the remdesivir or the COVID-19 or the antibiotics. The broad-spectrum antibiotics were deescalated to azithromycin and Levaquin that remdesivir was stopped Decadron was stopped. He received 1 unit packed red blood cells and Neupogen x2. Attempt was made to refer him to [facility] but his counts begin to recover and he began to improve and therefore the transfer was canceled. Mr. Garcia was discharged on January 23, 2020. As per patient , he was on home oxygen and wheelchair due to deconditioning for 2-1/2 months After discharge from hospital in January 2020, and then with the help of physical therapy he started recovering slowly but gradually and was following his PMD on regular basis and during follow-up in July 2020 his white blood count gone up to 80,000 and last week he got up to 186,000 and he also noticed progressive lymphadenopathy in the neck for which his PMD gave him oral antibiotic without much improvement. Patient denies any night sweats, denies any recurrent fever denies any weight loss rather weight gain, off and on abdominal fullness/bloatedness. Also complaining of left axillary lymphadenopathy. No headaches, no blurred vision or double vision, no shortness of breath at rest but dyspnea on exertion as per patient he is on Eliquis for chronic A. 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 Murillo, mortgage clerk. Follow-up CT scan of neck chest abdomen pelvis done on October 28, 2020 showed extensive bilateral cervical chain lymphadenopathy involving level 1 through 5 and supraclavicular and axillary regions, largest lymph node measured up to 22 mm. Soft tissue thickening measuring 16 x 10 mm involving left vallecula and pharyngeal epiglottic fold enlarged thyroid gland extending substernal, most likely multinodular goiter. Bilateral enhancing subcentimeter nodules with within parotid gland most likely lymph nodes and CT scan of the chest showed significant increase in size of bilateral axillary and left supraclavicular lymph nodes and mediastinum and hilar region remains stable since January 17, 2020. Significant increase in size and number of lymph nodes along the iliac chains bilaterally extending into obturator and inguinal region. Marked prostate gland enlargement, splenomegaly, spleen measures 16.2 cm compared to 13.3 cm on prior study. Cholelithiasis without acute cholecystitis. Mr. Garcia began the venetoclax starter pack With ramp-up plan on November 27, 2020 for treatment of his CLL. , On January 21, 2021 his dose was ramped up all the way up to 400 mg p.o. daily. He became neutropenic requiring a dose reduction to 300mg po daily., Increased back to 400 mg p.o. daily on March 26, 2021 Rituxan q. 28 days x 6 was started on January 28, 2021, as per protocol he received first cycle of Rituxan at a dose of 375 mg per metered square and cycle 2-6 he will receive Rituxan 500 mg per metered square q. 28 days Here for follow-up, denies any specific complaints, except off-and-on mild diarrhea, otherwise no fever chills, no nausea or vomiting, no night sweats, no weight loss, no peripheral lymphadenopathy, no abdominal fullness, no neuropathy, tolerating monthly Rituxan well along with venetoclax 300 mg p.o. daily . Medications: AmLODIPine Besylate 1 Tablet (of 10 mg) Oral daily, Apixaban (5 mg) Tablet Oral b.i.d., Aspirin 1 Tablet (of 81 mg) Tablet, enteric coated Oral daily, Finasteride 1 Tablet (of 5 mg) Oral daily, Furosemide 1 Tablet (of 20 mg) Oral daily, Lisinopril 1 Tablet (of 20 mg) Oral daily, Lovastatin ER 1 Tablet (of 40 mg) Tablet SR 24 HR Oral daily, Metoprolol Tartrate (25 mg) Tablet Oral b.i.d. Allergies: No Known Allergies. Review of Systems: Review of Systems is not available for this patient. Vital Signs: Vitals are not available for this patient. Performance Status: 0 - Fully active, able to carry on all predisease activities without restrictions. (ECOG) Physical Examination: ENMT - No mouth sores, no thrush, no jaundice, no cervical lymphadenopathy, Respiratory - Lungs are clear to auscultation, Cardiovascular - Irregular rate and rhythm, Abdomen - Soft, bowel sounds present, Extremities - No visible edema. Lab/Imaging: Test performed on Mar 19, 2021 08:56 WBC 3.4 10^9/L RBC 4.57 10^12/L HGB 14.3 g/dL HCT 43.2 % MCV 94.5 fl MCH 31.3 pg MCHC 33.1 g/dL RDW 12.8 % Platelet Count 141 10^9/L MPV 10.3 fL Neutrophils (Gran) 1.00 10^9/L Lymphocytes 1.9142 10^9/L Monocytes 0.2788 10^9/L Eosinophils 0.0102 10^9/L Basophils 0 10^9/L Test performed on Jan 20, 2021 08:03 Blasts 6 % Test performed on Jan 13, 2021 09:02 NRBCs 0.0 /100 WBC Test performed on Dec 26, 2020 12:16 Glucose 154 mg/dL BUN 13 mg/dL Creatinine 0.8 mg/dL Cr Clearance (Est) 122.16 mL/min Sodium 138 mmol/L Potassium 4.1 mmol/L Chloride 101 mmol/L CO2 24 mmol/L Calcium 9.0 mg/dL Protein, Total 7.3 g/dL Albumin 2.8 g/dL Globulin 2.8 g/dL Bilirubin, Total 0.9 mg/dL Alkaline Phosphatase 68 International Units/L AST (SGOT) 15 International Units/L ALT (SGPT) 11 International Units/L Test performed on Dec 19, 2020 09:55 Uric Acid 7.0 mg/dL Anion Gap 15.0 eGFR 83.4 mL/min Osmolality - Calculated 289 mOsm/kg Neutrophil % 1.8 % Lymphocyte % 86.9 % Monocyte % 11.2 % Eosinophil % 0.0 % Basophils % 0.0 % NRBC % 0 % CBC Slide Review Slide Review Perform SLIDE REVIEW AGREES WITH AUTOMATED RESULTS ST Impression: 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 Discussed with patient regarding his CT scan finding and lab workup. His white blood count is elevated due to lymphocytosis at 48.7 with a normal hemoglobin and hematocrit as well as platelets No evidence of peripheral lymphadenopathy or central lymphadenopathy except mild lymphadenopathy in pelvis maximum size 1.3 [address] scan of pelvis on 06/07/2009 it was 0.8 cm. Incidental finding, large thyroid goiter causing impingement on trachea and esophagus at the cervicothoracic junction the vast majority of monotypic B cells express CD38 next CLL panel, FISH showed positive for deletion of TP53 (unfavorable prognosis and chemotherapy resistance) And IGHV status shows non-mutation e.g. poor prognostic features Quantitative immunoglobulins checked on 11/04/2016 showed IgG 1100 normal being 700-1600 IgM 53 normal being 40-230 IgA 150 normal being 70-400 Beta-2 microglobulin 0.230 normal being 0.109 -0.253 CT scan of chest abdomen pelvis done on 11/25/2016 showed bilateral lower lobe parenchymal scarring with bilateral lower lobe bronchiectasis segment similar to 06/07/2009. Thyroid goiter with tracheal and esophageal impingements at cervicothoracic junction. Nonspecific right hilar lymph nodes no enlarged or pathological lymphadenopathy seen. Mild iliac region lymph nodes enlargements since 06/07/2009 Size about 1.3 cm. mild splenomegaly Repeat sonogram of abdomen On 12/20/2017 shows mild splenomegaly now 12.9 cm compared to 13.2 cm on 03/02/2017 On 02/09/2018 patient was evaluated by Dr. 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 And his recommendations were serial CT scan of chest abdomen pelvis once a year or sooner if needed. And continue to monitor CBC unless white blood count more than 200,000 as it may be associated with hyperviscosity and treatment options if decided to treat his recommendation was short course of bendamustine/Rituxan up to 4 cycles to achieve an initial response followed by ibrutinib maintenance. CT scan of chest abdomen pelvis done on 04/25/2018 showed very mild progression in the size and number of axillary, just tunnel, hilar and pelvic lymphadenopathy since 11/25/2016 Mild increase in size of spleen since 11/25/2016, now 14.8 cm compared to 13.4 before.Treated with ibrutinib for progressive CLL/SLL,,Started on 420 mg daily along with allopurinol on June 02, 2019 , which was eventually discontinued on August 03, 2019 because of episode of palpitation causing lightheadedness dizziness which improved after stopping ibrutinib, patient was referred to cardiology and eventually was diagnosed with A. fib which was medically managed and was started on Eliquis also but due to progressive disease he was started on bendamustine/Rituxan on September 13, 2019, patient responded well after third cycle which was given on November 08, 2019 his white blood count went down to 17.9 from 290,000 prior to the BR regimen, and resolution of peripheral lymphadenopathy, subsequently patient developed Covid infection for which he was admitted to hospital and patient did not receive further treatment after last dose of bendamustine/Rituxan on November 07 and 2019. Covid infection requiring hospitalization for 20 days but was not intubated but required oxygen and was discharged home on oxygen in January 2020 Mr Garcia began Venclexta starter pack on 11/27/2020 at which time his WBC was 232 and his lymphocytes were 82%. Severe prostate gland enlargement Plan: Discussed with patient regarding his labs white blood count 3900 compared to 3400 previously hemoglobin 15 hematocrit 45.2 platelets 142,000 ANC 1280 compared to 1000 previously CMP Clinically, patient doing well with no new signs symptoms suggestive of disease progression, tolerating monthly Rituxan well and earlier his venetoclax dose was reduced to 300 mg p.o. daily because of progressive neutropenia, now his blood count is recovering, will increase his venetoclax dose to 400 mg p.o. daily and then repeat his CBC CMP in 2 weeks, specifically neutrophil counts. In the meantime, proceed with his next monthly dose of Rituxan # 3/6. Return to clinic in 2 weeks with CBC CMP as mentioned above. Signed By: Rosanne Plaza M.D. <<Signature on File>>
[2021-03-26] MEDS: sodium chloride 0.9% 500 ML 75 ML IV (10:18)
[2021-03-26] MEDS: acetaminophen 325 mg Tablet 650 MG PO (10:18)
[2021-03-26] MEDS: diphenhydrAMINE 50 mg/mL SDV 1mL 25 MG IVP (10:19)
== END 2021-04-07 23:59 | disposition home or self-care (01) ==
LOC: ONCMED 06:19
PROVIDERS: PCP Nurse Practitioner; Visit Provider Internal Medicine Hematology & Oncology
DX: Z51.12 Encounter for antineoplastic immunotherapy (principal); C91.10 Chronic lymphocytic leukemia of B-cell type not having achieved remission; E04.1 Nontoxic single thyroid nodule; N40.0 Benign prostatic hyperplasia without lower urinary tract symptoms; D70.1 Agranulocytosis secondary to cancer chemotherapy; T45.1X5A Adverse effect of antineoplastic and immunosuppressive drugs, initial encounter; Z86.16 Personal history of COVID-19; Z99.81 Dependence on supplemental oxygen; Z79.899 Other long term (current) drug therapy
CPT/HCPCS: 80053; 85025; 96375; 96413; 96415; 99215; J1200; J7040; Q5115

== ENCOUNTER 2021-04-23 06:47 | Outpatient (RCR) | payer MEDICARE, OTHER, SELFPAY ==
[2021-04-14 12:40] LABS: Basophils % 0.2 %; Eosinophils % 0.6 %; Hematocrit 43.1 % (42.0-52.0); Hemoglobin 14.4 g/dL (11.7-16.6); Lymphocytes # 2.3 10^3/uL (0.8-4.8); Lymphocytes % 47.3 %; Mean Corpuscular HGB Conc 33.4 g/dL (30.0-36.0); Mean Corpuscular Hemoglobin 30.9 pg (28.0-34.0); Mean Corpuscular Volume 92.5 fl (80-94); Mean Platelet Volume 9.6 fL (7.4-10.4); Monocytes # 0.5 10^3/uL (0.2-0.9); Monocytes % 10.4 %; Neutrophils % 36.8 %; Nucleated Red Blood Cells % 0 %; Platelet Count 157 10^3/cmm (130-400); Red Blood Count 4.66 10^6/uL (4.1-5.3); Red Cell Distribution Width 13.3 % (12.1-15.1); White Blood Count 4.9 10^3/uL (4.0-10.0)
[2021-04-14 13:20] LABS: Alanine Aminotransferase 20 U/L (0-41); Albumin Level 4.8 g/dL (3.5-5.2); Alkaline Phosphatase 81 IU/L (40-130); Anion Gap 15.1 (5-19); Aspartate Amino Transferase 25 U/L (0-40); Blood Urea Nitrogen 14 mg/dL (8-23); Calcium 8.9 mg/dL (8.5-10.5); Carbon Dioxide 26 mmol/L (22-29); Chloride 103 mmol/L (98-107); Globulin 2.3 g/dL (1.3-4.6); Glomerular Filtration Rate 83.4 mL/min (90-130); Glucose 114 mg/dL (65-115); Osmolality Calculated 291 mOsm/kg (285-295); Potassium 4.1 mmol/L (3.5-5.1); Sodium 140 mmol/L (136-145); Total Bilirubin 0.6 mg/dL (0.15-1.2); Total Protein 7.1 g/dL (6.6-8.7)
[2021-04-14 13:22] LABS: Estmated Average Glucose 131; Hemoglobin A1C 6.2 % (4.0-6.0)
[2021-04-23 09:57] LABS: Basophils % 0.2 %; Eosinophils % 0.2 %; Hematocrit 41.6 % (42.0-52.0); Hemoglobin 13.9 g/dL (11.7-16.6); Lymphocytes % 48.5 %; Mean Corpuscular HGB Conc 33.4 g/dL (30.0-36.0); Mean Corpuscular Hemoglobin 30.2 pg (28.0-34.0); Mean Corpuscular Volume 90.2 fl (80-94); Mean Platelet Volume 9.6 fL (7.4-10.4); Monocytes # 0.4 10^3/uL (0.2-0.9); Monocytes % 9.8 %; Neutrophils # 1.59 10^3/uL (1.8-7.7); Neutrophils % 39.1 %; Nucleated Red Blood Cells % 0 %; Platelet Count 138 10^3/cmm (130-400); Red Blood Count 4.61 10^6/uL (4.1-5.3); Red Cell Distribution Width 13.4 % (12.1-15.1); White Blood Count 4.1 10^3/uL (4.0-10.0)
[2021-04-23 10:18] LABS: Alanine Aminotransferase 22 U/L (0-41); Albumin Level 4.7 g/dL (3.5-5.2); Alkaline Phosphatase 81 IU/L (40-130); Anion Gap 14.8 (5-19); Aspartate Amino Transferase 22 U/L (0-40); Blood Urea Nitrogen 14 mg/dL (8-23); Calcium 9.7 mg/dL (8.5-10.5); Carbon Dioxide 23 mmol/L (22-29); Chloride 107 mmol/L (98-107); Glomerular Filtration Rate 83.4 mL/min (90-130); Glucose 137 mg/dL (65-115); Osmolality Calculated 295 mOsm/kg (285-295); Potassium 3.8 mmol/L (3.5-5.1); Sodium 141 mmol/L (136-145); Total Bilirubin 0.5 mg/dL (0.15-1.2); Total Protein 7.7 g/dL (6.6-8.7)
[2021-04-23] MEDS: diphenhydrAMINE 50 mg/mL SDV 1mL 25 MG IVP (10:40)
[2021-04-23] MEDS: sodium chloride 0.9% 500 ML 75 ML IV (10:40)
[2021-04-23] MEDS: acetaminophen 325 mg Tablet 650 MG PO (10:40)
[2021-05-21 08:58] LABS: Alanine Aminotransferase 18 U/L (0-41); Albumin Level 4.5 g/dL (3.5-5.2); Alkaline Phosphatase 90 IU/L (40-130); Aspartate Amino Transferase 23 U/L (0-40); Blood Urea Nitrogen 18 mg/dL (8-23); Calcium 9.5 mg/dL (8.5-10.5); Carbon Dioxide 24 mmol/L (22-29); Chloride 101 mmol/L (98-107); Globulin 3.5 g/dL (1.3-4.6); Glomerular Filtration Rate 83.4 mL/min (90-130); Glucose 185 mg/dL (65-115); Osmolality Calculated 293 mOsm/kg (285-295); Sodium 138 mmol/L (136-145); Total Bilirubin 0.7 mg/dL (0.15-1.2)
[2021-05-21 09:00] LABS: Anion Gap 16.9 (5-19); Eosinophils % 0.3 %; Hematocrit 40.8 % (42.0-52.0); Hemoglobin 13.8 g/dL (11.7-16.6); Lymphocytes # 1.8 10^3/uL (0.8-4.8); Lymphocytes % 54.4 %; Mean Corpuscular HGB Conc 33.8 g/dL (30.0-36.0); Mean Corpuscular Volume 91.7 fl (80-94); Mean Platelet Volume 9.9 fL (7.4-10.4); Monocytes # 0.3 10^3/uL (0.2-0.9); Monocytes % 8.9 %; Neutrophils # 1.03 10^3/uL (1.8-7.7); Neutrophils % 30.5 %; Nucleated Red Blood Cells % 0 %; Platelet Count 145 10^3/cmm (130-400); Potassium 3.9 mmol/L (3.5-5.1); Red Blood Count 4.45 10^6/uL (4.1-5.3); Red Cell Distribution Width 14.1 % (12.1-15.1); White Blood Count 3.4 10^3/uL (4.0-10.0)
--- NOTE | 2021-05-21 17:15 | ONC FU_ITS ---
Dr. Plaza follow up note Patient: Lb Garcia Unit #: [id number]: 1950 Dicatated By: Rosanne Plaza M.D.Date of Visit:May 21, 2021 Onc Med Follow-up/Prog Note History of Present Illness: Mr. Garcia is a 70 -year-old gentleman with a past history of elevated white blood count. He reports that he had been having low-grade fever since February 2016. He presented initially with night sweats and was diagnosed with pneumonia. His white blood count on October 06, 2016 was reported at 32,000. His hemoglobin was 14.4 platelets 170,000 and his differential reported lymphocytes of 83.2% neutrophils 13.7% absolute lymphocyte count was 26,700. Follow-up CBC on 10/28/2016 reported a white count of 33,700 and differential showed lymphocytes and 78.5%. He remained on observation. F/u CT of the chest abdomen pelvis on 04/25/2018 and when compared with a CT scan of chest abdomen pelvis from 11/25/2016 there was very mild progression in size and number of axillary, mediastinal and hilar as well as pelvic adenopathy. The spleen size is 14.8 cm compared to 13.4 cm on 11/25/2016. Follow-up CT of the chest abdomen pelvis on 01/05/2019 reported stable bilateral axillary, mediastinal, right hilar lymphadenopathy with no evidence of progression. The splenomegaly he had marginally increased from 04/25/2018. Was noted that he had progressive pelvic lymphadenopathy with a lymph node increased from 1.1 to 1.5 cm and 1.3 to 1.7 cm in the left external iliac. The left internal iliac measured 1.8 compared to 1.4 cm. It was noted that he had a large prostate as well. He did have follow-up repeat CT scan of the chest abdomen pelvis on May 19, 2019 which showed axillary, mediastinal and hilar lymph nodes which were indeterminate with no interval change. The largest lymph node measured at the right hilum was 14 mm. The pelvic lymphadenopathy was without significant progression in size or number since January 05, 2019. There were numerous enlarged lymph nodes. Some measures slightly smaller in size other slightly larger in size which was felt to be due to technical variation. The largest lymph node was measured at 19 mm in the left ureter region. He had markedly enlarged prostate gland. This splenomegaly was at 16.5 cm. It was noted that he had cholelithiasis. Mr. Garcia was started on ibrutinib 420 mg daily along with allopurinol on June 02, 2019. Unfortunately the ibrutinib was discontinued on August 03, 2019 at which time he had called reporting episodes of palpitations lasting for a long time . The ibrutinib was stopped and he was referred to cardiology. He had no further palpitations after stopping the ibrutinib. Mr. Garcia was here for follow-up on September 13, 2019. He was having no significant symptoms but had persistent peripheral lymphadenopathy involving the neck and bilateral axilla and inguinal area. He had no headaches vision changes fever or chills. He had no night sweats or weight loss or any recurrent fever at that time. Had any abdominal fullness as well. He did have follow-up echocardiogram on August 28, 2019 which reported a left ventricular size and systolic ejection fraction of 60%. There was trace mitral valve regurgitation. He did have cardiac monitoring for 15 days he had had any report preliminary report per [facility] access reported baseline rhythm was found to be normal sinus with a rate of 61 bpm there was one episode of atrial fibrillation with rapid ventricular rate of 110 lasting for 2 minutes. He is followed with Dr. Murillo regarding the monitor. White count on the September 13, 2019 visit was noted to be 1 29,000. Previously on August 16 it was 235,000 and on May 21, 2019 was 303,000., was recommended to pursue systemic therapy with bendamustine Rituxan. He began his first cycle on September 13, 2019. His last treatment with Rituxan bendamustine was on November 072019. He was admitted to [facility] on 12/29/2019 and treated for severe COVID-19 infection-pneumonia: He required oxygen support in the hospital with groundglass opacities on chest x-ray and CT. He was pretreated with remdesivir, Decadron and empirically covered with antibiotics on presentation due to sepsis treated with Zosyn. Subsequently Primaxin and vancomycin was added as he did have neutropenia in the hospital with his ANC as low as 280. He did slowly recover and was discharged on January 10, 2020. He was readmitted to [facility] on January 23, 2020 with acute sepsis. He was admitted to the general medical floor???Covid unit started on broad-spectrum antibiotic therapy and monitor. His cultures were all unremarkable C. difficile was negative MRSA was negative urine bacterial antigens negative, stool studies negative, CMV unremarkable, influenza negative, parainfluenza negative, galactomannan pending SARS rapid positive on previous admission all cultures were negative this admission. He did have transaminitis, elevated alk phos and right upper quadrant pain in the right upper quadrant ultrasound was negative for cholecystitis. HIDA scan no evidence of acute or chronic cystitis, gallbladder ejection was around 90%. CT of the chest showed bilateral groundglass infiltrates areas of consolidation. At the time there was some concern that he may have had healthcare associated pneumonia he was continued on broad-spectrum antibiotics. He required up to 5 L nasal cannula no shortness of breath complaints no cough. He continued to have high-grade fevers despite being on broad spectrum antibiotics for 72 hours. After discussion with with infectious disease, thought was the patient could have continued COVID-19 infection, thus rems does a fair and Decadron were restarted. For the next 48 hours the patient remained asymptomatic and remained afebrile for the next 48 hours. However he started to develop anemia with his hemoglobin is 7.7 neutropenia at 530 and thrombocytopenia with platelets as low as 90,000. After discussions with infectious disease , thought that Mr. Garcia could be suffering bone marrow suppression from the remdesivir or the COVID-19 or the antibiotics. The broad-spectrum antibiotics were deescalated to azithromycin and Levaquin that remdesivir was stopped Decadron was stopped. He received 1 unit packed red blood cells and Neupogen x2. Attempt was made to refer him to [facility] but his counts begin to recover and he began to improve and therefore the transfer was canceled. Mr. Garcia was discharged on January 23, 2020. As per patient , he was on home oxygen and wheelchair due to deconditioning for 2-1/2 months After discharge from hospital in January 2020, and then with the help of physical therapy he started recovering slowly but gradually and was following his PMD on regular basis and during follow-up in July 2020 his white blood count gone up to 80,000 and last week he got up to 186,000 and he also noticed progressive lymphadenopathy in the neck for which his PMD gave him oral antibiotic without much improvement. Patient denies any night sweats, denies any recurrent fever denies any weight loss rather weight gain, off and on abdominal fullness/bloatedness. Also complaining of left axillary lymphadenopathy. No headaches, no blurred vision or double vision, no shortness of breath at rest but dyspnea on exertion as per patient he is on Eliquis for chronic A. 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 Follow-up CT scan of neck chest abdomen pelvis done on October 28, 2020 showed extensive bilateral cervical chain lymphadenopathy involving level 1 through 5 and supraclavicular and axillary regions, largest lymph node measured up to 22 mm. Soft tissue thickening measuring 16 x 10 mm involving left vallecula and pharyngeal epiglottic fold enlarged thyroid gland extending substernal, most likely multinodular goiter. Bilateral enhancing subcentimeter nodules with within parotid gland most likely lymph nodes and CT scan of the chest showed significant increase in size of bilateral axillary and left supraclavicular lymph nodes and mediastinum and hilar region remains stable since January 17, 2020. Significant increase in size and number of lymph nodes along the iliac chains bilaterally extending into obturator and inguinal region. Marked prostate gland enlargement, splenomegaly, spleen measures 16.2 cm compared to 13.3 cm on prior study. Cholelithiasis without acute cholecystitis. Mr. Garcia began the venetoclax starter pack With ramp-up plan on November 27, 2020 for treatment of his CLL. , On January 21, 2021 his dose was ramped up all the way up to 400 mg p.o. daily. He became neutropenic requiring a dose reduction to 300mg po daily.Once mild leukopenia resolved, was increased again to 400 mg p.o. daily Rituxan q. 28 days x 6 was started on January 28, 2021, as per protocol he received first cycle of Rituxan at a dose of 375 mg per metered square and cycle 2-6 he will receive Rituxan 500 mg per metered square q. 28 days Came for follow-up, denies any specific complaints, no fever chills, no nausea or vomiting, no diarrhea or constipation, no night sweats, no peripheral lymphadenopathy, no abdominal fullness, no jaundice, no weight loss, no shortness of breath or palpitation. Tolerating venetoclax 400 mg p.o. daily along with monthly Rituxan . Medications: AmLODIPine Besylate 1 Tablet (of 10 mg) Oral daily, Apixaban (5 mg) Tablet Oral b.i.d., Aspirin 1 Tablet (of 81 mg) Tablet, enteric coated Oral daily, Finasteride 1 Tablet (of 5 mg) Oral daily, Furosemide 1 Tablet (of 20 mg) Oral daily, Lisinopril 1 Tablet (of 20 mg) Oral daily, Lovastatin ER 1 Tablet (of 40 mg) Tablet SR 24 HR Oral daily, Metoprolol Tartrate (25 mg) Tablet Oral b.i.d. Allergies: No Known Allergies. Review of Systems: Review of Systems is not available for this patient. Vital Signs: Performed on May 21, 2021 09:40 Height - 69.50 in Weight - 231.6 lbs (HIGH) BSA - 2.21 sq.m BMI - 33.71 (HIGH) Temperature - 97.7 F (LOW) Pulse - 64 /min Respiration - 16 /min BP - 130/75 mm(hg) O2 Sat - 95 % (LOW) Pain - 0 Fatigue - 0 Performance Status: 0 - Fully active, able to carry on all predisease activities without restrictions. (ECOG) Physical Examination: ENMT - No mouth sores, no thrush, no jaundice, no cervical lymphadenopathy, Respiratory - Lungs are clear to auscultation, Cardiovascular - Regular rate and rhythm of heart, Abdomen - Soft, bowel sounds present, Extremities - No visible edema. Lab/Imaging: Test performed on Apr 23, 2021 09:40 Sodium 141 mmol/L Potassium 3.8 mmol/L Chloride 107 mmol/L CO2 23 mmol/L Anion Gap 14.8 BUN 14 mg/dL Creatinine 0.9 mg/dL Cr Clearance (Est) 110.2500 mL/min Osmolality - Calculated 295 mOsm/kg Calcium 9.7 mg/dL Protein, Total 7.7 g/dL Albumin 4.7 g/dL Globulin 3.0 g/dL Bilirubin, Total 0.5 mg/dL ALT (SGPT) 22 U/L AST (SGOT) 22 U/L Alkaline Phosphatase 81 IU/L WBC 4.1 10 3/uL RBC 4.61 10 6/uL HGB 13.9 g/dL HCT 41.6 % MCV 90.2 fl MCH 30.2 pg MCHC 33.4 g/dL RDW 13.4 % Platelet Count 138 10 3/cmm MPV 9.6 fL Neutrophils 1.59 10 3/uL Lymphocytes 2.0 10 3/uL Monocytes 0.4 10 3/uL Eosinophils 0.0 10 3/uL Basophils 0.0 10 3/uL Neutrophil % 39.1 % Lymphocyte % 48.5 % Monocyte % 9.8 % Eosinophil % 0.2 % Basophils % 0.2 % NRBC % 0 % Test performed on Apr 14, 2021 12:23 eGFR 83.4 mL/min Glucose 114 mg/dL Test performed on Jan 20, 2021 08:03 Blasts 6 % Test performed on Jan 13, 2021 09:02 NRBCs 0.0 /100 WBC Test performed on Dec 19, 2020 09:55 Uric Acid 7.0 mg/dL CBC Slide Review Slide Review Perform SLIDE REVIEW AGREES WITH AUTOMATED RESULTS ST Impression: 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 discussed with patient regarding his CT scan finding and lab workup. His white blood count is elevated due to lymphocytosis at 48.7 with a normal hemoglobin and hematocrit as well as platelets. No evidence of peripheral lymphadenopathy or central lymphadenopathy except mild lymphadenopathy in pelvis maximum size 1.3 [address] scan of pelvis on 06/07/2009 it was 0.8 cm. Incidental finding, large thyroid goiter causing impingement on trachea and esophagus at the cervicothoracic junction the vast majority of monotypic B cells express CD38 next CLL panel, FISH showed positive for deletion of TP53 (unfavorable prognosis and chemotherapy resistance) And IGHV status shows non-mutation e.g. poor prognostic features Quantitative immunoglobulins checked on 11/04/2016 showed IgG 1100 normal being 700-1600 IgM 53 normal being 40-230 IgA 150 normal being 70-400 Beta-2 microglobulin 0.230 normal being 0.109 -0.253 CT scan of chest abdomen pelvis done on 11/25/2016 showed bilateral lower lobe parenchymal scarring with bilateral lower lobe bronchiectasis segment similar to 06/07/2009. Thyroid goiter with tracheal and esophageal impingements at cervicothoracic junction. Nonspecific right hilar lymph nodes no enlarged or pathological lymphadenopathy seen. Mild iliac region lymph nodes enlargements since 06/07/2009 Size about 1.3 cm. mild splenomegaly Repeat sonogram of abdomen On 12/20/2017 shows mild splenomegaly now 12.9 cm compared to 13.2 cm on 03/02/2017 On 02/09/2018 patient was evaluated by Dr. Alvarenga veterinarian helper at [facility] and his labs done there showed white blood count 198.7 hemoglobin 13.4 hematocrit 34.4 platelets 188,000 IgA 100, IgM 43, IgG 889, SPEP no monoclonal peak, serum light chains showed kappa 2.44, lambda 2.9, kappa/lambda ratio 0.84 which was normal. And his recommendations were serial CT scan of chest abdomen pelvis once a year or sooner if needed. And continue to monitor CBC unless white blood count more than 200,000 as it may be associated with hyperviscosity and treatment options if decided to treat his recommendation was short course of bendamustine/Rituxan up to 4 cycles to achieve an initial response followed by ibrutinib maintenance. CT scan of chest abdomen pelvis done on 04/25/2018 showed very mild progression in the size and number of axillary, just tunnel, hilar and pelvic lymphadenopathy since 11/25/2016 Mild increase in size of spleen since 11/25/2016, now 14.8 cm compared to 13.4 before.Treated with ibrutinib for progressive CLL/SLL,,Started on 420 mg daily along with allopurinol on June 02, 2019 , which was eventually discontinued on August 03, 2019 because of episode of palpitation causing lightheadedness dizziness which improved after stopping ibrutinib, patient was referred to cardiology and eventually was diagnosed with A. fib which was medically managed and was started on Eliquis also but due to progressive disease he was started on bendamustine/Rituxan on September 13, 2019, patient responded well after third cycle which was given on November 08, 2019 his white blood count went down to 17.9 from 290,000 prior to the BR regimen, and resolution of peripheral lymphadenopathy, subsequently patient developed Covid infection for which he was admitted to hospital and patient did not receive further treatment after last dose of bendamustine/Rituxan on November 07 and 2019. Covid infection requiring hospitalization for 20 days but was not intubated but required oxygen and was discharged home on oxygen in January 2020 Mr Garcia began Venclexta starter pack on 11/27/2020 at which time his WBC was 232 and his lymphocytes were 82%. Severe prostate gland enlargement Plan: Discussed with patient regarding his labs white blood count 3.4 hemoglobin 13.8 hematocrit 40.8 platelets 245,000 ANC 1030 compared to 1591 April 23, 2021. CMP within normal limits except glucose 185 Clinically, patient is doing well with no new signs symptom suggestive of disease progression, on exam there is no peripheral lymphadenopathy, his follow-up CBC shows mild leukopenia and progressive neutropenia since his venetoclax dose was increased to 400 mg from 300 mg p.o. daily, we will continue to monitor his blood counts. In the meantime, we will proceed with next monthly dose of Rituxan, cycle #5/6 today and then return to clinic in 1 month with CBC and CMP Signed By: Rosanne Plaza M.D. <<Signature on File>>
--- NOTE | 2021-06-18 09:32 | ONC FU_ITS ---
Nadine Borjas Progress Note Patient: Lb Garcia Unit #: [id number]: 1950 Dicatated By: Nadine Borjas N.P.Date of Visit:Jun 18, 2021 Onc MED Follow-up/Prog Note Chief Complaint: elevated white blood cell CLL History of Present Illness: Mr. Garcia is a 70 -year-old gentleman with a past history of elevated white blood count. He reports that he had been having low-grade fever since February 2016. He presented initially with night sweats and was diagnosed with pneumonia. His white blood count on October 06, 2016 was reported at 32,000. His hemoglobin was 14.4 platelets 170,000 and his differential reported lymphocytes of 83.2% neutrophils 13.7% absolute lymphocyte count was 26,700. Follow-up CBC on 10/28/2016 reported a white count of 33,700 and differential showed lymphocytes and 78.5%. He remained on observation. F/u CT of the chest abdomen pelvis on 04/25/2018 and when compared with a CT scan of chest abdomen pelvis from 11/25/2016 there was very mild progression in size and number of axillary, mediastinal and hilar as well as pelvic adenopathy. The spleen size is 14.8 cm compared to 13.4 cm on 11/25/2016. Follow-up CT of the chest abdomen pelvis on 01/05/2019 reported stable bilateral axillary, mediastinal, right hilar lymphadenopathy with no evidence of progression. The splenomegaly he had marginally increased from 04/25/2018. Was noted that he had progressive pelvic lymphadenopathy with a lymph node increased from 1.1 to 1.5 cm and 1.3 to 1.7 cm in the left external iliac. The left internal iliac measured 1.8 compared to 1.4 cm. It was noted that he had a large prostate as well. He did have follow-up repeat CT scan of the chest abdomen pelvis on May 19, 2019 which showed axillary, mediastinal and hilar lymph nodes which were indeterminate with no interval change. The largest lymph node measured at the right hilum was 14 mm. The pelvic lymphadenopathy was without significant progression in size or number since January 05, 2019. There were numerous enlarged lymph nodes. Some measures slightly smaller in size other slightly larger in size which was felt to be due to technical variation. The largest lymph node was measured at 19 mm in the left ureter region. He had markedly enlarged prostate gland. This splenomegaly was at 16.5 cm. It was noted that he had cholelithiasis. Mr. Garcia was started on ibrutinib 420 mg daily along with allopurinol on June 02, 2019. Unfortunately the ibrutinib was discontinued on August 03, 2019 at which time he had called reporting episodes of palpitations lasting for a long time . The ibrutinib was stopped and he was referred to cardiology. He had no further palpitations after stopping the ibrutinib. Mr. Garcia was here for follow-up on September 13, 2019. He was having no significant symptoms but had persistent peripheral lymphadenopathy involving the neck and bilateral axilla and inguinal area. He had no headaches vision changes fever or chills. He had no night sweats or weight loss or any recurrent fever at that time. Had any abdominal fullness as well. He did have follow-up echocardiogram on August 28, 2019 which reported a left ventricular size and systolic ejection fraction of 60%. There was trace mitral valve regurgitation. He did have cardiac monitoring for 15 days he had had any report preliminary report per [employer] [facility] reported baseline rhythm was found to be normal sinus with a rate of 61 bpm there was one episode of atrial fibrillation with rapid ventricular rate of 110 lasting for 2 minutes. He is followed with Dr. Murillo regarding the monitor. White count on the September 13, 2019 visit was noted to be 1 29,000. Previously on August 16 it was 235,000 and on May 21, 2019 was 303,000., was recommended to pursue systemic therapy with bendamustine Rituxan. He began his first cycle on September 13, 2019. His last treatment with Rituxan bendamustine was on November 072019. He was admitted to [facility] on 12/29/2019 and treated for severe COVID-19 infection-pneumonia: He required oxygen support in the hospital with groundglass opacities on chest x-ray and CT. He was pretreated with remdesivir, Decadron and empirically covered with antibiotics on presentation due to sepsis treated with Zosyn. Subsequently Primaxin and vancomycin was added as he did have neutropenia in the hospital with his ANC as low as 280. He did slowly recover and was discharged on January 10, 2020. He was readmitted to [facility] on January 23, 2020 with acute sepsis. He was admitted to the general medical floor???Covid unit started on broad-spectrum antibiotic therapy and monitor. His cultures were all unremarkable C. difficile was negative MRSA was negative urine bacterial antigens negative, stool studies negative, CMV unremarkable, influenza negative, parainfluenza negative, galactomannan pending SARS rapid positive on previous admission all cultures were negative this admission. He did have transaminitis, elevated alk phos and right upper quadrant pain in the right upper quadrant ultrasound was negative for cholecystitis. HIDA scan no evidence of acute or chronic cystitis, gallbladder ejection was around 90%. CT of the chest showed bilateral groundglass infiltrates areas of consolidation. At the time there was some concern that he may have had healthcare associated pneumonia he was continued on broad-spectrum antibiotics. He required up to 5 L nasal cannula no shortness of breath complaints no cough. He continued to have high-grade fevers despite being on broad spectrum antibiotics for 72 hours. After discussion with with infectious disease, thought was the patient could have continued COVID-19 infection, thus rems does a fair and Decadron were restarted. For the next 48 hours the patient remained asymptomatic and remained afebrile for the next 48 hours. However he started to develop anemia with his hemoglobin is 7.7 neutropenia at 530 and thrombocytopenia with platelets as low as 90,000. After discussions with infectious disease , thought that Mr. Garcia could be suffering bone marrow suppression from the remdesivir or the COVID-19 or the antibiotics. The broad-spectrum antibiotics were deescalated to azithromycin and Levaquin that remdesivir was stopped Decadron was stopped. He received 1 unit packed red blood cells and Neupogen x2. Attempt was made to refer him to [facility] but his counts begin to recover and he began to improve and therefore the transfer was canceled. Mr. Garcia was discharged on January 23, 2020. As per patient , he was on home oxygen and wheelchair due to deconditioning for 2-1/2 months After discharge from hospital in January 2020, and then with the help of physical therapy he started recovering slowly but gradually and was following his PMD on regular basis and during follow-up in July 2020 his white blood count gone up to 80,000 and last week he got up to 186,000 and he also noticed progressive lymphadenopathy in the neck for which his PMD gave him oral antibiotic without much improvement. Patient denies any night sweats, denies any recurrent fever denies any weight loss rather weight gain, off and on abdominal fullness/bloatedness. Also complaining of left axillary lymphadenopathy. No headaches, no blurred vision or double vision, no shortness of breath at rest but dyspnea on exertion as per patient he is on Eliquis for chronic A. 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 Murillo, dish room worker. Follow-up CT scan of neck chest abdomen pelvis done on October 28, 2020 showed extensive bilateral cervical chain lymphadenopathy involving level 1 through 5 and supraclavicular and axillary regions, largest lymph node measured up to 22 mm. Soft tissue thickening measuring 16 x 10 mm involving left vallecula and pharyngeal epiglottic fold enlarged thyroid gland extending substernal, most likely multinodular goiter. Bilateral enhancing subcentimeter nodules with within parotid gland most likely lymph nodes and CT scan of the chest showed significant increase in size of bilateral axillary and left supraclavicular lymph nodes and mediastinum and hilar region remains stable since January 17, 2020. Significant increase in size and number of lymph nodes along the iliac chains bilaterally extending into obturator and inguinal region. Marked prostate gland enlargement, splenomegaly, spleen measures 16.2 cm compared to 13.3 cm on prior study. Cholelithiasis without acute cholecystitis. Mr. Garcia began the venetoclax starter pack With ramp-up plan on November 27, 2020 for treatment of his CLL. , On January 21, 2021 his dose was ramped up all the way up to 400 mg p.o. daily. He became neutropenic requiring a dose reduction to 300mg po daily.Once mild leukopenia resolved, was increased again to 400 mg p.o. daily Rituxan q. 28 days x 6 was started on January 28, 2021, as per protocol he received first cycle of Rituxan at a dose of 375 mg per metered square and cycle 2-6 he will receive Rituxan 500 mg per metered square q. 28 days Patient presents today for follow-up. He states he is doing good. No weakness or fatigue. His appetite has been good. No fever, chills, night sweats. No sinus drainage or mouth sores. He did say a few weeks ago that he had right ear pain, drainage from his right eye, numbness and tingling in his right cheek and the right side of his mouth drooped. He said it did not last long and resolved quickly. He notified his PCP who felt like it may be Rosas's palsy although it was resolved by the time he had spoke to his primary care. Patient denies any shortness of breath or cough. No nausea or vomiting. He has occasional diarrhea but it is not daily. No joint or bone pain. No headaches or dizziness. He is currently on venetoclax 400 mg p.o. daily. Review Of Symptoms: See above Past Medical History: Benign prostatic hypertorphy Chronic kidney disease Diabetes type II Dyslipidemia Obstructive Sleep Apnea Osteoporosis COVID-19 Positive in 2019 Past Surgical History: Mr. Garcia's surgical history is unremarkable. Allergies: No Known Allergies. Medications: AmLODIPine Besylate 1 Tablet (of 10 mg) Oral daily Apixaban (5 mg) Tablet Oral b.i.d. Aspirin 1 Tablet (of 81 mg) Tablet, enteric coated Oral daily Finasteride 1 Tablet (of 5 mg) Oral daily Furosemide 1 Tablet (of 20 mg) Oral daily Lisinopril 1 Tablet (of 20 mg) Oral daily Lovastatin ER 1 Tablet (of 40 mg) Tablet SR 24 HR Oral daily Metoprolol Tartrate (25 mg) Tablet Oral b.i.d. Family History: Mr. Garcia's mother at age 82: heart failure. Mr. Garcia's father at age 82: lung cancer. Social History: Mr. Garcia is and he is retired. Mr. Garcia quit smoking 25 years ago but had smoked 1.0 pack/day for 25 years. He has no history of drinking. Mr. Garcia reports the following support systems: lives with spouse, significant other, family, or friends, lives in own house, supportive family/friends willing to assist with needs, and adequate transportation available for expected visits. His diet consists of regular meals. He indicates his activity level as: daily activities. Physical Examination: Vitals are not available for this patient. Performance Status: 0 - Fully active, able to carry on all predisease activities without restrictions. (ECOG) Constitutional Alert, cooperative, oriented. Mood and affect appropriate. Appears close to chronological age. Well nourished. Well developed. Head Normocephalic; no scars. Respiratory Lungs are clear to auscultation without rhonchi or wheezing. Cardiovascular Regular rate and rhythm of heart without murmurs, gallops or rubs. Abdomen Non-tender, non-distended, no masses, ascites or hepatosplenomegaly. Good bowel sounds. No guarding or rebound tenderness. Extremities No visible deformities, no cyanosis, clubbing or edema. Pulses 3+ and equal bilaterally. Musculoskeletal No tenderness or swelling, normal range of motion without obvious weakness. Psychiatric Alert and oriented times three. Coherent speech. Verbalizes understanding of our discussions today. Laboratory: Test performed on Jun 18, 2021 08:32 Sodium 137 mmol/L Potassium 3.7 mmol/L Chloride 100 mmol/L CO2 24 mmol/L Anion Gap 16.7 BUN 20 mg/dL Creatinine 1.0 mg/dL Cr Clearance (Est) 99.2300 mL/min eGFR 73.9 mL/min Glucose 157 mg/dL Osmolality - Calculated 290 mOsm/kg Calcium 10.0 mg/dL Protein, Total 8.1 g/dL Albumin 4.6 g/dL Globulin 3.5 g/dL Bilirubin, Total 0.9 mg/dL ALT (SGPT) 20 U/L AST (SGOT) 21 U/L Alkaline Phosphatase 80 IU/L WBC 3.6 10 3/uL RBC 4.50 10 6/uL HGB 14.1 g/dL HCT 41.2 % MCV 91.6 fl MCH 31.3 pg MCHC 34.2 g/dL RDW 14.6 % Platelet Count 164 10 3/cmm MPV 10.0 fL Neutrophils 0.89 10 3/uL Lymphocytes 2.1 10 3/uL Monocytes 0.5 10 3/uL Eosinophils 0.0 10 3/uL Basophils 0.0 10 3/uL Neutrophil % 25.0 % Lymphocyte % 58.7 % Monocyte % 13.5 % Eosinophil % 0.3 % Basophils % 0.0 % NRBC % 0 % Test performed on Jan 20, 2021 08:03 Blasts 6 % Test performed on Jan 13, 2021 09:02 NRBCs 0.0 /100 WBC Impression: 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 discussed with patient regarding his CT scan finding and lab workup. His white blood count is elevated due to lymphocytosis at 48.7 with a normal hemoglobin and hematocrit as well as platelets. No evidence of peripheral lymphadenopathy or central lymphadenopathy except mild lymphadenopathy in pelvis maximum size 1.3 [address] scan of pelvis on 06/07/2009 it was 0.8 cm. Incidental finding, large thyroid goiter causing impingement on trachea and esophagus at the cervicothoracic junction the vast majority of monotypic B cells express CD38 next CLL panel, FISH showed positive for deletion of TP53 (unfavorable prognosis and chemotherapy resistance) And IGHV status shows non-mutation e.g. poor prognostic features Quantitative immunoglobulins checked on 11/04/2016 showed IgG 1100 normal being 700-1600 IgM 53 normal being 40-230 IgA 150 normal being 70-400 Beta-2 microglobulin 0.230 normal being 0.109 -0.253 CT scan of chest abdomen pelvis done on 11/25/2016 showed bilateral lower lobe parenchymal scarring with bilateral lower lobe bronchiectasis segment similar to 06/07/2009. Thyroid goiter with tracheal and esophageal impingements at cervicothoracic junction. Nonspecific right hilar lymph nodes no enlarged or pathological lymphadenopathy seen. Mild iliac region lymph nodes enlargements since 06/07/2009 Size about 1.3 cm. mild splenomegaly Repeat sonogram of abdomen On 12/20/2017 shows mild splenomegaly now 12.9 cm compared to 13.2 cm on 03/02/2017 On 02/09/2018 patient was evaluated by Dr. Alvarenga central office worker at [facility] and his labs done there showed white blood count 198.7 hemoglobin 13.4 hematocrit 34.4 platelets 188,000 IgA 100, IgM 43, IgG 889, SPEP no monoclonal peak, serum light chains showed kappa 2.44, lambda 2.9, kappa/lambda ratio 0.84 which was normal. And his recommendations were serial CT scan of chest abdomen pelvis once a year or sooner if needed. And continue to monitor CBC unless white blood count more than 200,000 as it may be associated with hyperviscosity and treatment options if decided to treat his recommendation was short course of bendamustine/Rituxan up to 4 cycles to achieve an initial response followed by ibrutinib maintenance. CT scan of chest abdomen pelvis done on 04/25/2018 showed very mild progression in the size and number of axillary, just tunnel, hilar and pelvic lymphadenopathy since 11/25/2016 Mild increase in size of spleen since 11/25/2016, now 14.8 cm compared to 13.4 before.Treated with ibrutinib for progressive CLL/SLL,,Started on 420 mg daily along with allopurinol on June 02, 2019 , which was eventually discontinued on August 03, 2019 because of episode of palpitation causing lightheadedness dizziness which improved after stopping ibrutinib, patient was referred to cardiology and eventually was diagnosed with A. fib which was medically managed and was started on Eliquis also but due to progressive disease he was started on bendamustine/Rituxan on September 13, 2019, patient responded well after third cycle which was given on November 08, 2019 his white blood count went down to 17.9 from 290,000 prior to the BR regimen, and resolution of peripheral lymphadenopathy, subsequently patient developed Covid infection for which he was admitted to hospital and patient did not receive further treatment after last dose of bendamustine/Rituxan on November 07 and 2019. Covid infection requiring hospitalization for 20 days but was not intubated but required oxygen and was discharged home on oxygen in January 2020 Mr Garcia began Venclexta starter pack on 11/27/2020 at which time his WBC was 232 and his lymphocytes were 82%. Severe prostate gland enlargement Plan: Labs were reviewed with patient. His WBC is low at 3.6, his hemoglobin is 14.1, hematocrit 41.2, platelets 164,000, his ANC is 0.89. Patient is doing well but his ANC is decreased to 0.89. We will hold his venetoclax and when his numbers recover we will restart him at a reduced dose of 300 mg p.o. daily. He will receive his Rituxan infusion today which will be cycle 6 that will be his final treatment cycle for Rituxan. He will return to the clinic in 1 week with CBC and CMP and if his ANC has recovered we will restart his venetoclax at 300 mg p.o. daily. Signed By: Nadine Borjas N.P. <<Signature on File>>
== END 2021-05-05 23:59 | disposition home or self-care (01) ==
LOC: ONCMED 06:47
PROVIDERS: Nurse Practitioner Family; PCP Nurse Practitioner; Visit Provider Internal Medicine Hematology & Oncology
DX: Z51.12 Encounter for antineoplastic immunotherapy (principal); C91.10 Chronic lymphocytic leukemia of B-cell type not having achieved remission; E04.1 Nontoxic single thyroid nodule; J47.9 Bronchiectasis, uncomplicated; R59.0 Localized enlarged lymph nodes; R16.1 Splenomegaly, not elsewhere classified; N40.0 Benign prostatic hyperplasia without lower urinary tract symptoms; Z86.16 Personal history of COVID-19; Z79.899 Other long term (current) drug therapy
CPT/HCPCS: 36415; 80053; 83036; 85025; 96374; 96375; 96413; 96415; 99214; J1200; J7040; Q5115

== ENCOUNTER 2021-05-22 07:54 | Outpatient (RCR) | payer MEDICARE, OTHER, SELFPAY ==
[2021-05-21] MEDS: acetaminophen 325 mg Tablet 650 MG PO (10:35)
[2021-05-21] MEDS: diphenhydrAMINE 50 mg/mL SDV 1mL 25 MG IV (10:39)
[2021-05-22] MEDS: sodium chloride 0.9% 500 ML 75 ML IV (08:40)
[2021-05-22] MEDS: acetaminophen 325 mg Tablet 650 MG PO (08:40)
[2021-05-22] MEDS: diphenhydrAMINE 50 mg/mL SDV 1mL 25 MG IV (08:41)
== END 2021-06-05 23:59 | disposition home or self-care (01) ==
LOC: ONCMED 07:54
PROVIDERS: PCP Nurse Practitioner; Visit Provider Internal Medicine Hematology & Oncology
DX: Z51.12 Encounter for antineoplastic immunotherapy (principal); C91.10 Chronic lymphocytic leukemia of B-cell type not having achieved remission; E04.1 Nontoxic single thyroid nodule; J47.9 Bronchiectasis, uncomplicated; R16.1 Splenomegaly, not elsewhere classified; N40.0 Benign prostatic hyperplasia without lower urinary tract symptoms; Z86.16 Personal history of COVID-19; Z99.81 Dependence on supplemental oxygen; Z79.899 Other long term (current) drug therapy
CPT/HCPCS: 36415; 80053; 85025; 96374; 96375; 96413; 96415; 99215; J1200; J7040; Q5115

== ENCOUNTER 2021-06-25 06:42 | Outpatient (RCR) | payer MEDICARE, OTHER, SELFPAY ==
[2021-06-18 08:45] LABS: Eosinophils % 0.3 %; Hematocrit 41.2 % (42.0-52.0); Hemoglobin 14.1 g/dL (11.7-16.6); Lymphocytes # 2.1 10^3/uL (0.8-4.8); Lymphocytes % 58.7 %; Mean Corpuscular HGB Conc 34.2 g/dL (30.0-36.0); Mean Corpuscular Hemoglobin 31.3 pg (28.0-34.0); Mean Corpuscular Volume 91.6 fl (80-94); Monocytes # 0.5 10^3/uL (0.2-0.9); Monocytes % 13.5 %; Nucleated Red Blood Cells % 0 %; Platelet Count 164 10^3/cmm (130-400); Red Cell Distribution Width 14.6 % (12.1-15.1); White Blood Count 3.6 10^3/uL (4.0-10.0)
[2021-06-18 08:48] LABS: Neutrophils # 0.89 10^3/uL (1.8-7.7)
[2021-06-18 09:01] LABS: Alanine Aminotransferase 20 U/L (0-41); Albumin Level 4.6 g/dL (3.5-5.2); Alkaline Phosphatase 80 IU/L (40-130); Anion Gap 16.7 (5-19); Aspartate Amino Transferase 21 U/L (0-40); Blood Urea Nitrogen 20 mg/dL (8-23); Carbon Dioxide 24 mmol/L (22-29); Chloride 100 mmol/L (98-107); Globulin 3.5 g/dL (1.3-4.6); Glomerular Filtration Rate 73.9 mL/min (90-130); Glucose 157 mg/dL (65-115); Osmolality Calculated 290 mOsm/kg (285-295); Potassium 3.7 mmol/L (3.5-5.1); Sodium 137 mmol/L (136-145); Total Bilirubin 0.9 mg/dL (0.15-1.2); Total Protein 8.1 g/dL (6.6-8.7)
[2021-06-18] MEDS: acetaminophen 325 mg Tablet 650 MG PO (09:33)
[2021-06-18] MEDS: sodium chloride 0.9% 500 ML 75 ML IV (09:35)
[2021-06-18] MEDS: diphenhydrAMINE 50 mg/mL SDV 1mL 25 MG IVP (09:35)
[2021-06-25 08:30] LABS: Hematocrit 42.7 % (42.0-52.0); Hemoglobin 14.4 g/dL (11.7-16.6); Lymphocytes # 2.3 10^3/uL (0.8-4.8); Lymphocytes % 51.5 %; Mean Corpuscular HGB Conc 33.7 g/dL (30.0-36.0); Mean Corpuscular Hemoglobin 30.8 pg (28.0-34.0); Mean Corpuscular Volume 91.4 fl (80-94); Mean Platelet Volume 9.7 fL (7.4-10.4); Monocytes # 0.6 10^3/uL (0.2-0.9); Monocytes % 14.1 %; Neutrophils # 1.49 10^3/uL (1.8-7.7); Neutrophils % 33.7 %; Nucleated Red Blood Cells % 0 %; Platelet Count 151 10^3/cmm (130-400); Red Blood Count 4.67 10^6/uL (4.1-5.3); Red Cell Distribution Width 14.3 % (12.1-15.1); White Blood Count 4.4 10^3/uL (4.0-10.0)
[2021-06-25 08:50] LABS: Alanine Aminotransferase 21 U/L (0-41); Albumin Level 4.7 g/dL (3.5-5.2); Alkaline Phosphatase 82 IU/L (40-130); Aspartate Amino Transferase 20 U/L (0-40); Blood Urea Nitrogen 16 mg/dL (8-23); Calcium 10.1 mg/dL (8.5-10.5); Carbon Dioxide 23 mmol/L (22-29); Chloride 100 mmol/L (98-107); Globulin 3.7 g/dL (1.3-4.6); Glomerular Filtration Rate 73.9 mL/min (90-130); Glucose 140 mg/dL (65-115); Osmolality Calculated 289 mOsm/kg (285-295); Sodium 138 mmol/L (136-145); Total Bilirubin 0.6 mg/dL (0.15-1.2); Total Protein 8.4 g/dL (6.6-8.7)
--- NOTE | 2021-07-02 08:24 | ONC FU_ITS ---
Nadine Borjas Progress Note Patient: Lb Garcia Unit #: [id number]: 1950 Dicatated By: Nadine Borjas N.P.Date of Visit:Jun 25, 2021 Onc MED Follow-up/Prog Note Chief Complaint: elevated white blood cell CLL History of Present Illness: Mr. Garcia is a 70 -year-old gentleman with a past history of elevated white blood count. He reports that he had been having low-grade fever since February 2016. He presented initially with night sweats and was diagnosed with pneumonia. His white blood count on October 06, 2016 was reported at 32,000. His hemoglobin was 14.4 platelets 170,000 and his differential reported lymphocytes of 83.2% neutrophils 13.7% absolute lymphocyte count was 26,700. Follow-up CBC on 10/28/2016 reported a white count of 33,700 and differential showed lymphocytes and 78.5%. He remained on observation. F/u CT of the chest abdomen pelvis on 04/25/2018 and when compared with a CT scan of chest abdomen pelvis from 11/25/2016 there was very mild progression in size and number of axillary, mediastinal and hilar as well as pelvic adenopathy. The spleen size is 14.8 cm compared to 13.4 cm on 11/25/2016. Follow-up CT of the chest abdomen pelvis on 01/05/2019 reported stable bilateral axillary, mediastinal, right hilar lymphadenopathy with no evidence of progression. The splenomegaly he had marginally increased from 04/25/2018. Was noted that he had progressive pelvic lymphadenopathy with a lymph node increased from 1.1 to 1.5 cm and 1.3 to 1.7 cm in the left external iliac. The left internal iliac measured 1.8 compared to 1.4 cm. It was noted that he had a large prostate as well. He did have follow-up repeat CT scan of the chest abdomen pelvis on May 19, 2019 which showed axillary, mediastinal and hilar lymph nodes which were indeterminate with no interval change. The largest lymph node measured at the right hilum was 14 mm. The pelvic lymphadenopathy was without significant progression in size or number since January 05, 2019. There were numerous enlarged lymph nodes. Some measures slightly smaller in size other slightly larger in size which was felt to be due to technical variation. The largest lymph node was measured at 19 mm in the left ureter region. He had markedly enlarged prostate gland. This splenomegaly was at 16.5 cm. It was noted that he had cholelithiasis. Mr. Garcia was started on ibrutinib 420 mg daily along with allopurinol on June 02, 2019. Unfortunately the ibrutinib was discontinued on August 03, 2019 at which time he had called reporting episodes of palpitations lasting for a long time . The ibrutinib was stopped and he was referred to cardiology. He had no further palpitations after stopping the ibrutinib. Mr. Garcia was here for follow-up on September 13, 2019. He was having no significant symptoms but had persistent peripheral lymphadenopathy involving the neck and bilateral axilla and inguinal area. He had no headaches vision changes fever or chills. He had no night sweats or weight loss or any recurrent fever at that time. Had any abdominal fullness as well. He did have follow-up echocardiogram on August 28, 2019 which reported a left ventricular size and systolic ejection fraction of 60%. There was trace mitral valve regurgitation. He did have cardiac monitoring for 15 days he had had any report preliminary report per [facility] access reported baseline rhythm was found to be normal sinus with a rate of 61 bpm there was one episode of atrial fibrillation with rapid ventricular rate of 110 lasting for 2 minutes. He is followed with Dr. Murillo regarding the monitor. White count on the September 13, 2019 visit was noted to be 1 29,000. Previously on August 16 it was 235,000 and on May 21, 2019 was 303,000., was recommended to pursue systemic therapy with bendamustine Rituxan. He began his first cycle on September 13, 2019. His last treatment with Rituxan bendamustine was on November 072019. He was admitted to [facility] on 12/29/2019 and treated for severe COVID-19 infection-pneumonia: He required oxygen support in the hospital with groundglass opacities on chest x-ray and CT. He was pretreated with remdesivir, Decadron and empirically covered with antibiotics on presentation due to sepsis treated with Zosyn. Subsequently Primaxin and vancomycin was added as he did have neutropenia in the hospital with his ANC as low as 280. He did slowly recover and was discharged on January 10, 2020. He was readmitted to [facility] on January 23, 2020 with acute sepsis. He was admitted to the general medical floor???Covid unit started on broad-spectrum antibiotic therapy and monitor. His cultures were all unremarkable C. difficile was negative MRSA was negative urine bacterial antigens negative, stool studies negative, CMV unremarkable, influenza negative, parainfluenza negative, galactomannan pending SARS rapid positive on previous admission all cultures were negative this admission. He did have transaminitis, elevated alk phos and right upper quadrant pain in the right upper quadrant ultrasound was negative for cholecystitis. HIDA scan no evidence of acute or chronic cystitis, gallbladder ejection was around 90%. CT of the chest showed bilateral groundglass infiltrates areas of consolidation. At the time there was some concern that he may have had healthcare associated pneumonia he was continued on broad-spectrum antibiotics. He required up to 5 L nasal cannula no shortness of breath complaints no cough. He continued to have high-grade fevers despite being on broad spectrum antibiotics for 72 hours. After discussion with with infectious disease, thought was the patient could have continued COVID-19 infection, thus rems does a fair and Decadron were restarted. For the next 48 hours the patient remained asymptomatic and remained afebrile for the next 48 hours. However he started to develop anemia with his hemoglobin is 7.7 neutropenia at 530 and thrombocytopenia with platelets as low as 90,000. After discussions with infectious disease , thought that Mr. Garcia could be suffering bone marrow suppression from the remdesivir or the COVID-19 or the antibiotics. The broad-spectrum antibiotics were deescalated to azithromycin and Levaquin that remdesivir was stopped Decadron was stopped. He received 1 unit packed red blood cells and Neupogen x2. Attempt was made to refer him to [facility] but his counts begin to recover and he began to improve and therefore the transfer was canceled. Mr. Garcia was discharged on January 23, 2020. As per patient , he was on home oxygen and wheelchair due to deconditioning for 2-1/2 months After discharge from hospital in January 2020, and then with the help of physical therapy he started recovering slowly but gradually and was following his PMD on regular basis and during follow-up in July 2020 his white blood count gone up to 80,000 and last week he got up to 186,000 and he also noticed progressive lymphadenopathy in the neck for which his PMD gave him oral antibiotic without much improvement. Patient denies any night sweats, denies any recurrent fever denies any weight loss rather weight gain, off and on abdominal fullness/bloatedness. Also complaining of left axillary lymphadenopathy. No headaches, no blurred vision or double vision, no shortness of breath at rest but dyspnea on exertion as per patient he is on Eliquis for chronic A. 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 Murillo, transportation services representative. Follow-up CT scan of neck chest abdomen pelvis done on October 28, 2020 showed extensive bilateral cervical chain lymphadenopathy involving level 1 through 5 and supraclavicular and axillary regions, largest lymph node measured up to 22 mm. Soft tissue thickening measuring 16 x 10 mm involving left vallecula and pharyngeal epiglottic fold enlarged thyroid gland extending substernal, most likely multinodular goiter. Bilateral enhancing subcentimeter nodules with within parotid gland most likely lymph nodes and CT scan of the chest showed significant increase in size of bilateral axillary and left supraclavicular lymph nodes and mediastinum and hilar region remains stable since January 17, 2020. Significant increase in size and number of lymph nodes along the iliac chains bilaterally extending into obturator and inguinal region. Marked prostate gland enlargement, splenomegaly, spleen measures 16.2 cm compared to 13.3 cm on prior study. Cholelithiasis without acute cholecystitis. Mr. Garcia began the venetoclax starter pack With ramp-up plan on November 27, 2020 for treatment of his CLL. , On January 21, 2021 his dose was ramped up all the way up to 400 mg p.o. daily. He became neutropenic requiring a dose reduction to 300mg po daily.Once mild leukopenia resolved, was increased again to 400 mg p.o. daily Rituxan q. 28 days x 6 was started on January 28, 2021, as per protocol he received first cycle of Rituxan at a dose of 375 mg per metered square and cycle 2-6 he will receive Rituxan 500 mg per metered square q. 28 days Patient presents today for follow-up. He states he has been feeling pretty good. His appetite has been good. He denies fever, chills, night sweats. No shortness of breath, cough, chest pain. His venetoclax was put on hold due to neutropenia. Review Of Symptoms: See above. Past Medical History: Benign prostatic hypertorphy Chronic kidney disease Diabetes type II Dyslipidemia Obstructive Sleep Apnea Osteoporosis COVID-19 Positive in 2019 Past Surgical History: Mr. Garcia's surgical history is unremarkable. Allergies: No Known Allergies. Medications: AmLODIPine Besylate 1 Tablet (of 10 mg) Oral daily Apixaban (5 mg) Tablet Oral b.i.d. Famciclovir 1 Tablet (of 250 mg) Oral b.i.d. Finasteride 1 Tablet (of 5 mg) Oral daily Lisinopril 1 Tablet (of 20 mg) Oral daily Lovastatin ER 1 Tablet (of 40 mg) Tablet SR 24 HR Oral daily Metoprolol Tartrate (25 mg) Tablet Oral b.i.d. Sulfamethoxazole-Trimethoprim (800-160 mg) Tablet Oral Take as Directed Family History: Mr. Garcia's mother at age 82: heart failure. Mr. Garcia's father at age 82: lung cancer. Social History: Mr. Garcia is and he is retired. Mr. Garcia quit smoking 25 years ago but had smoked 1.0 pack/day for 25 years. He has no history of drinking. Mr. Garcia reports the following support systems: lives with spouse, significant other, family, or friends, lives in own house, supportive family/friends willing to assist with needs, and adequate transportation available for expected visits. His diet consists of regular meals. He indicates his activity level as: daily activities. Physical Examination: Performed on Jun 25, 2021 09:50: Height - 69.50 in, Weight - 231.8 lbs (HIGH), BSA - 2.21 sq.m, BMI - 33.74 (HIGH), Temperature - 97.9 F (LOW), Pulse - 68 /min, Respiration - 18 /min, BP - 126/75 mm(hg), O2 Sat - 98 %, Pain - 0, and Fatigue - 0. Performance Status: 0 - Fully active, able to carry on all predisease activities without restrictions. (ECOG) Constitutional Alert, cooperative, oriented. Mood and affect appropriate. Appears close to chronological age. Well nourished. Well developed. Respiratory Lungs are clear to auscultation without rhonchi or wheezing. Cardiovascular Regular rate and rhythm of heart without murmurs, gallops or rubs. Musculoskeletal No tenderness or swelling, normal range of motion without obvious weakness. Psychiatric Alert and oriented times three. Coherent speech. Verbalizes understanding of our discussions today. Laboratory: Test performed on Jun 25, 2021 08:17 Sodium 138 mmol/L Potassium 4.0 mmol/L Chloride 100 mmol/L CO2 23 mmol/L Anion Gap 19.0 BUN 16 mg/dL Creatinine 1.0 mg/dL Cr Clearance (Est) 99.2300 mL/min eGFR 73.9 mL/min Glucose 140 mg/dL Osmolality - Calculated 289 mOsm/kg Calcium 10.1 mg/dL Protein, Total 8.4 g/dL Albumin 4.7 g/dL Globulin 3.7 g/dL Bilirubin, Total 0.6 mg/dL ALT (SGPT) 21 U/L AST (SGOT) 20 U/L Alkaline Phosphatase 82 IU/L WBC 4.4 10 3/uL RBC 4.67 10 6/uL HGB 14.4 g/dL HCT 42.7 % MCV 91.4 fl MCH 30.8 pg MCHC 33.7 g/dL RDW 14.3 % Platelet Count 151 10 3/cmm MPV 9.7 fL Neutrophils 1.49 10 3/uL Lymphocytes 2.3 10 3/uL Monocytes 0.6 10 3/uL Eosinophils 0.0 10 3/uL Basophils 0.0 10 3/uL Neutrophil % 33.7 % Lymphocyte % 51.5 % Monocyte % 14.1 % Eosinophil % 0.0 % Basophils % 0.0 % NRBC % 0 % Test performed on Jan 20, 2021 08:03 Blasts 6 % Test performed on Jan 13, 2021 09:02 NRBCs 0.0 /100 WBC Impression: 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 discussed with patient regarding his CT scan finding and lab workup. His white blood count is elevated due to lymphocytosis at 48.7 with a normal hemoglobin and hematocrit as well as platelets. No evidence of peripheral lymphadenopathy or central lymphadenopathy except mild lymphadenopathy in pelvis maximum size 1.3 [address] scan of pelvis on 06/07/2009 it was 0.8 cm. Incidental finding, large thyroid goiter causing impingement on trachea and esophagus at the cervicothoracic junction the vast majority of monotypic B cells express CD38 next CLL panel, FISH showed positive for deletion of TP53 (unfavorable prognosis and chemotherapy resistance) And IGHV status shows non-mutation e.g. poor prognostic features Quantitative immunoglobulins checked on 11/04/2016 showed IgG 1100 normal being 700-1600 IgM 53 normal being 40-230 IgA 150 normal being 70-400 Beta-2 microglobulin 0.230 normal being 0.109 -0.253 CT scan of chest abdomen pelvis done on 11/25/2016 showed bilateral lower lobe parenchymal scarring with bilateral lower lobe bronchiectasis segment similar to 06/07/2009. Thyroid goiter with tracheal and esophageal impingements at cervicothoracic junction. Nonspecific right hilar lymph nodes no enlarged or pathological lymphadenopathy seen. Mild iliac region lymph nodes enlargements since 06/07/2009 Size about 1.3 cm. mild splenomegaly Repeat sonogram of abdomen On 12/20/2017 shows mild splenomegaly now 12.9 cm compared to 13.2 cm on 03/02/2017 On 02/09/2018 patient was evaluated by Dr. Alvarenga cable television technician at [facility] and his labs done there showed white blood count 198.7 hemoglobin 13.4 hematocrit 34.4 platelets 188,000 IgA 100, IgM 43, IgG 889, SPEP no monoclonal peak, serum light chains showed kappa 2.44, lambda 2.9, kappa/lambda ratio 0.84 which was normal. And his recommendations were serial CT scan of chest abdomen pelvis once a year or sooner if needed. And continue to monitor CBC unless white blood count more than 200,000 as it may be associated with hyperviscosity and treatment options if decided to treat his recommendation was short course of bendamustine/Rituxan up to 4 cycles to achieve an initial response followed by ibrutinib maintenance. CT scan of chest abdomen pelvis done on 04/25/2018 showed very mild progression in the size and number of axillary, just tunnel, hilar and pelvic lymphadenopathy since 11/25/2016 Mild increase in size of spleen since 11/25/2016, now 14.8 cm compared to 13.4 before.Treated with ibrutinib for progressive CLL/SLL,,Started on 420 mg daily along with allopurinol on June 02, 2019 , which was eventually discontinued on August 03, 2019 because of episode of palpitation causing lightheadedness dizziness which improved after stopping ibrutinib, patient was referred to cardiology and eventually was diagnosed with A. fib which was medically managed and was started on Eliquis also but due to progressive disease he was started on bendamustine/Rituxan on September 13, 2019, patient responded well after third cycle which was given on November 08, 2019 his white blood count went down to 17.9 from 290,000 prior to the BR regimen, and resolution of peripheral lymphadenopathy, subsequently patient developed Covid infection for which he was admitted to hospital and patient did not receive further treatment after last dose of bendamustine/Rituxan on November 07 and 2019. Covid infection requiring hospitalization for 20 days but was not intubated but required oxygen and was discharged home on oxygen in January 2020 Mr Garcia began Venclexta starter pack on 11/27/2020 at which time his WBC was 232 and his lymphocytes were 82%. Severe prostate gland enlargement Plan: Labs reviewed with patient. His WBC is 4.4, hemoglobin 14.4, hematocrit 42.7, and his ANC is 1.49. Patient is recovering well from neutropenia. We will restart his venetoclax at 300 mg p.o. daily. He will return to the clinic in 2 weeks with CBC and CMP. Signed By: Nadine Borjas N.P. <<Signature on File>>
== END 2021-07-05 23:59 | disposition home or self-care (01) ==
LOC: ONCMED 06:42
PROVIDERS: Nurse Practitioner Family; PCP Nurse Practitioner; Visit Provider Internal Medicine Hematology & Oncology
DX: Z51.12 Encounter for antineoplastic immunotherapy (principal); C91.10 Chronic lymphocytic leukemia of B-cell type not having achieved remission; E04.1 Nontoxic single thyroid nodule; R16.1 Splenomegaly, not elsewhere classified; Z86.16 Personal history of COVID-19; Z99.81 Dependence on supplemental oxygen; N40.0 Benign prostatic hyperplasia without lower urinary tract symptoms; Z79.899 Other long term (current) drug therapy
CPT/HCPCS: 36415; 80053; 85025; 96375; 96413; 96415; 99214; 99215; J1200; J7040; Q5115

== ENCOUNTER → 2021-06-26 09:59 | Outpatient (BNVA) | payer MEDICARE, OTHER, SELFPAY | PROVIDERS: PCP Nurse Practitioner; Visit Provider Nurse Practitioner | DX: I10 Essential (primary) hypertension (principal); I48.0 Paroxysmal atrial fibrillation; R39.11 Hesitancy of micturition; E78.5 Hyperlipidemia, unspecified; E11.9 Type 2 diabetes mellitus without complications | CPT/HCPCS: 81003 ==

== ENCOUNTER 2021-07-10 10:48 | Oncology outpatient (recurring) (ONCR) | payer MEDICARE, OTHER, SELFPAY ==
[2021-07-10 12:17] LABS: Eosinophils % 0.5 %; Hematocrit 42.9 % (42.0-52.0); Hemoglobin 14.4 g/dL (11.7-16.6); Lymphocytes # 2.2 10^3/uL (0.8-4.8); Lymphocytes % 50.3 %; Mean Corpuscular HGB Conc 33.6 g/dL (30.0-36.0); Mean Corpuscular Hemoglobin 31.2 pg (28.0-34.0); Mean Corpuscular Volume 93.1 fl (80-94); Mean Platelet Volume 9.7 fL (7.4-10.4); Monocytes # 0.4 10^3/uL (0.2-0.9); Monocytes % 9.5 %; Neutrophils # 1.64 10^3/uL (1.8-7.7); Neutrophils % 37.9 %; Nucleated Red Blood Cells % 0 %; Platelet Count 140 10^3/cmm (130-400); Red Blood Count 4.61 10^6/uL (4.1-5.3); White Blood Count 4.3 10^3/uL (4.0-10.0)
[2021-07-10 12:36] LABS: Estmated Average Glucose 105; Hemoglobin A1C 5.3 % (4.0-6.0)
[2021-07-10 12:37] LABS: Alanine Aminotransferase 21 U/L (0-41); Albumin Level 4.6 g/dL (3.5-5.2); Alkaline Phosphatase 78 IU/L (40-130); Aspartate Amino Transferase 21 U/L (0-40); Blood Urea Nitrogen 16 mg/dL (8-23); Carbon Dioxide 25 mmol/L (22-29); Chloride 101 mmol/L (98-107); Globulin 3.3 g/dL (1.3-4.6); Glomerular Filtration Rate 73.9 mL/min (90-130); Glucose 113 mg/dL (65-115); Osmolality Calculated 288 mOsm/kg (285-295); Sodium 138 mmol/L (136-145); Total Bilirubin 0.6 mg/dL (0.15-1.2); Total Protein 7.9 g/dL (6.6-8.7)
== END 2021-08-05 23:59 | disposition home or self-care (01) ==
PROVIDERS: Nurse Practitioner Family; PCP Nurse Practitioner; Visit Provider Internal Medicine Hematology & Oncology
DX: C83.00 Small cell B-cell lymphoma, unspecified site (principal); E11.9 Type 2 diabetes mellitus without complications; Z53.9 Procedure and treatment not carried out, unspecified reason
CPT/HCPCS: 80053; 83036; 85025; 99214; 99999

== ENCOUNTER 2021-08-14 12:08 | Oncology outpatient (recurring) (ONCR) | payer MEDICARE, OTHER, SELFPAY ==
[2021-08-14 12:48] LABS: Basophils % 0.2 %; Hematocrit 37.8 % (42.0-52.0); Lymphocytes # 2.8 10^3/uL (0.8-4.8); Lymphocytes % 50.4 %; Mean Corpuscular HGB Conc 34.4 g/dL (30.0-36.0); Mean Corpuscular Hemoglobin 30.8 pg (28.0-34.0); Mean Corpuscular Volume 89.6 fl (80-94); Mean Platelet Volume 10.1 fL (7.4-10.4); Monocytes # 0.5 10^3/uL (0.2-0.9); Monocytes % 8.3 %; Neutrophils # 2.27 10^3/uL (1.8-7.7); Neutrophils % 40.4 %; Nucleated Red Blood Cells % 0 %; Platelet Count 203 10^3/cmm (130-400); Red Blood Count 4.22 10^6/uL (4.1-5.3); Red Cell Distribution Width 13.2 % (12.1-15.1); White Blood Count 5.6 10^3/uL (4.0-10.0)
[2021-08-14 13:10] LABS: Alanine Aminotransferase 18 U/L (0-41); Albumin Level 4.2 g/dL (3.5-5.2); Alkaline Phosphatase 95 IU/L (40-130); Anion Gap 16.1 (5-19); Aspartate Amino Transferase 22 U/L (0-40); Blood Urea Nitrogen 12 mg/dL (8-23); Calcium 9.2 mg/dL (8.5-10.5); Carbon Dioxide 25 mmol/L (22-29); Chloride 99 mmol/L (98-107); Globulin 3.5 g/dL (1.3-4.6); Glomerular Filtration Rate 83.4 mL/min (90-130); Glucose 110 mg/dL (65-115); Osmolality Calculated 282 mOsm/kg (285-295); Potassium 4.1 mmol/L (3.5-5.1); Sodium 136 mmol/L (136-145); Total Bilirubin 0.5 mg/dL (0.15-1.2); Total Protein 7.7 g/dL (6.6-8.7)
== END 2021-09-04 23:59 | disposition home or self-care (01) ==
PROVIDERS: Nurse Practitioner Family; PCP Nurse Practitioner; Visit Provider Internal Medicine Hematology & Oncology
DX: C91.10 Chronic lymphocytic leukemia of B-cell type not having achieved remission (principal)
CPT/HCPCS: 80053; 85025; 99214

== ENCOUNTER 2021-10-02 10:47 | Oncology outpatient (recurring) (ONCR) | payer MEDICARE, OTHER, SELFPAY ==
[2021-10-02 11:41] LABS: Basophils % 0.2 %; Hematocrit 40.4 % (42.0-52.0); Hemoglobin 13.9 g/dL (11.7-16.6); Lymphocytes # 3.2 10^3/uL (0.8-4.8); Lymphocytes % 54.2 %; Mean Corpuscular HGB Conc 34.4 g/dL (30.0-36.0); Mean Corpuscular Hemoglobin 31.3 pg (28.0-34.0); Monocytes # 0.5 10^3/uL (0.2-0.9); Monocytes % 9.2 %; Neutrophils # 2.08 10^3/uL (1.8-7.7); Neutrophils % 35.2 %; Nucleated Red Blood Cells % 0 %; Platelet Count 152 10^3/cmm (130-400); Red Blood Count 4.44 10^6/uL (4.1-5.3); Red Cell Distribution Width 14.1 % (12.1-15.1); White Blood Count 5.9 10^3/uL (4.0-10.0)
[2021-10-02 12:25] LABS: Alanine Aminotransferase 18 U/L (0-41); Albumin Level 4.6 g/dL (3.5-5.2); Alkaline Phosphatase 90 IU/L (40-130); Aspartate Amino Transferase 20 U/L (0-40); Blood Urea Nitrogen 13 mg/dL (8-23); Calcium 9.3 mg/dL (8.5-10.5); Carbon Dioxide 27 mmol/L (22-29); Chloride 99 mmol/L (98-107); Chol HDL Ratio 3.91 mg/dL (1.0-5.00); Cholesterol 129 mg/dL (0-200); Globulin 2.6 g/dL (1.3-4.6); Glucose 142 mg/dL (65-115); HDL Cholesterol 33 mg/dL (60-100); LDL Cholesterol Calculated 37 mg/dL (50-129); Osmolality Calculated 289 mOsm/kg (285-295); Prostate Specific Antigen Scr 3.32 ng/mL (0-4); Sodium 138 mmol/L (136-145); Total Bilirubin 0.5 mg/dL (0.15-1.2); Total Protein 7.2 g/dL (6.6-8.7); Triglycerides 295 mg/dL (0-150); VLDL Cholestrol Calculation 59 mg/dL (0-30)
== END 2021-10-05 23:59 | disposition home or self-care (01) ==
PROVIDERS: PCP Nurse Practitioner; Visit Provider Internal Medicine Hematology & Oncology
DX: C91.10 Chronic lymphocytic leukemia of B-cell type not having achieved remission (principal); I48.91 Unspecified atrial fibrillation; Z79.01 Long term (current) use of anticoagulants; Z79.899 Other long term (current) drug therapy
CPT/HCPCS: 36415; 80053; 80061; 85025; 99214; G0103

== ENCOUNTER → 2021-11-03 12:56 | Outpatient (BNVA) | payer MEDICARE, OTHER, SELFPAY | PROVIDERS: PCP Nurse Practitioner; Visit Provider Internal Medicine Cardiovascular Disease | DX: I48.0 Paroxysmal atrial fibrillation (principal); Z79.01 Long term (current) use of anticoagulants; C91.10 Chronic lymphocytic leukemia of B-cell type not having achieved remission; E78.5 Hyperlipidemia, unspecified; E11.9 Type 2 diabetes mellitus without complications; Z79.84 Long term (current) use of oral hypoglycemic drugs; I10 Essential (primary) hypertension; F17.220 Nicotine dependence, chewing tobacco, uncomplicated | CPT/HCPCS: 99214 ==

== ENCOUNTER 2021-12-03 12:29 | Oncology outpatient (recurring) (ONCR) | payer MEDICARE, OTHER, SELFPAY ==
[2021-12-03 13:08] LABS: Positive C 1
[2021-12-03 13:10] LABS: Basophils % 0.2 %; Hemoglobin 13.7 g/dL (11.7-16.6); Lymphocytes # 2.7 10^3/uL (0.8-4.8); Mean Corpuscular Hemoglobin 31.9 pg (28.0-34.0); Monocytes # 0.5 10^3/uL (0.2-0.9); Nucleated Red Blood Cells % 0 %
[2021-12-03 13:19] LABS: Hematocrit 41.1 % (42.0-52.0); Mean Corpuscular HGB Conc 33.3 g/dL (30.0-36.0); Mean Corpuscular Volume 95.6 fl (80-94); Mean Platelet Volume 9.9 fL (7.4-10.4); Platelet Count 133 10^3/cmm (130-400); White Blood Count 5.1 10^3/uL (4.0-10.0)
[2021-12-03 13:20] LABS: Lymphocytes % 53.2 %; Monocytes % 10.2 %; Neutrophils # 1.75 10^3/uL (1.8-7.7); Neutrophils % 34.2 %
[2021-12-03 13:27] LABS: Alanine Aminotransferase 16 U/L (0-41); Albumin Level 4.3 g/dL (3.5-5.2); Alkaline Phosphatase 86 U/L (40-130); Anion Gap 14.9 (5-19); Aspartate Amino Transferase 18 U/L (0-40); Blood Urea Nitrogen 20 mg/dL (8-23); Calcium 9.5 mg/dL (8.5-10.5); Carbon Dioxide 26 mmol/L (22-29); Chloride 102 mmol/L (98-107); Globulin 2.9 g/dL (1.3-4.6); Glucose 114 mg/dL (65-115); Osmolality Calculated 291 mOsm/kg (285-295); Potassium 3.9 mmol/L (3.5-5.1); Sodium 139 mmol/L (136-145); Total Bilirubin 0.5 mg/dL (0.15-1.2); Total Protein 7.2 g/dL (6.6-8.7)
== END 2021-12-05 23:59 | disposition home or self-care (01) ==
PROVIDERS: Nurse Practitioner Family; PCP Nurse Practitioner; Visit Provider Internal Medicine Hematology & Oncology
DX: C91.10 Chronic lymphocytic leukemia of B-cell type not having achieved remission (principal); Z79.899 Other long term (current) drug therapy
CPT/HCPCS: 36415; 80053; 85025; 99214

== ENCOUNTER 2022-02-04 11:29 | Oncology outpatient (recurring) (ONCR) | payer MEDICARE, OTHER, SELFPAY ==
[2022-02-04 12:05] LABS: Basophils % 0.2 %; Hematocrit 41.2 % (42.0-52.0); Hemoglobin 13.7 g/dL (11.7-16.6); Lymphocytes # 2.5 10^3/uL (0.8-4.8); Lymphocytes % 55.6 %; Mean Corpuscular HGB Conc 33.3 g/dL (30.0-36.0); Mean Corpuscular Hemoglobin 32.1 pg (28.0-34.0); Mean Corpuscular Volume 96.5 fl (80-94); Mean Platelet Volume 9.8 fL (7.4-10.4); Monocytes # 0.4 10^3/uL (0.2-0.9); Monocytes % 9.7 %; Neutrophils # 1.47 10^3/uL (1.8-7.7); Neutrophils % 32.5 %; Nucleated Red Blood Cells % 0 %; Platelet Count 146 10^3/cmm (130-400); Red Blood Count 4.27 10^6/uL (4.1-5.3); Red Cell Distribution Width 13.2 % (12.1-15.1); White Blood Count 4.5 10^3/uL (4.0-10.0)
[2022-02-04 12:26] LABS: Alanine Aminotransferase 21 U/L (0-41); Albumin Level 4.4 g/dL (3.5-5.2); Alkaline Phosphatase 89 U/L (40-130); Anion Gap 12.9 (5-19); Aspartate Amino Transferase 20 U/L (0-40); Blood Urea Nitrogen 18 mg/dL (8-23); Calcium 9.4 mg/dL (8.5-10.5); Carbon Dioxide 25 mmol/L (22-29); Chloride 103 mmol/L (98-107); Globulin 2.7 g/dL (1.3-4.6); Glucose 118 mg/dL (65-115); Osmolality Calculated 287 mOsm/kg (285-295); Potassium 3.9 mmol/L (3.5-5.1); Sodium 137 mmol/L (136-145); Total Bilirubin 0.5 mg/dL (0.15-1.2); Total Protein 7.1 g/dL (6.6-8.7)
[2022-02-04 13:07] LABS: Lactate Dehydrogenase 284 U/L (135-225)
== END 2022-02-04 23:59 | disposition home or self-care (01) ==
PROVIDERS: PCP Nurse Practitioner; Visit Provider Internal Medicine Hematology & Oncology
DX: C91.10 Chronic lymphocytic leukemia of B-cell type not having achieved remission (principal); D70.1 Agranulocytosis secondary to cancer chemotherapy; T45.1X5A Adverse effect of antineoplastic and immunosuppressive drugs, initial encounter; R79.89 Other specified abnormal findings of blood chemistry; Z79.899 Other long term (current) drug therapy; Z92.25 Personal history of immunosuppression therapy; Z86.16 Personal history of COVID-19
CPT/HCPCS: 36415; 80053; 80061; 83036; 83615; 84443; 85025; 99214

== ENCOUNTER 2022-02-04 11:33 | Outpatient (CLI) | payer MEDICARE, OTHER, SELFPAY ==
[2022-02-04 12:22] LABS: Estmated Average Glucose 131; Hemoglobin A1C 6.2 % (4.0-6.0)
[2022-02-04 12:39] LABS: Chol HDL Ratio 4.26 mg/dL (1.0-5.00); Cholesterol 145 mg/dL (0-200); HDL Cholesterol 34 mg/dL (60-100); LDL Cholesterol Calculated 44 mg/dL (50-129); Thyroid Stimulating Hormone 1.73 uIU/mL (0.27-4.20); Triglycerides 333 mg/dL (0-150); VLDL Cholestrol Calculation 67 mg/dL (0-30)
== END 2022-02-04 11:34 | disposition home or self-care (01) ==
LOC: LAB 11:37
PROVIDERS: PCP Nurse Practitioner; Visit Provider Nurse Practitioner
DX: E11.9 Type 2 diabetes mellitus without complications (principal)
CPT/HCPCS: 36415; 80061; 83036; 84443

== ENCOUNTER 2022-04-30 12:02 | Oncology outpatient (recurring) (ONCR) | payer MEDICARE, OTHER, SELFPAY ==
[2022-04-30 12:33] LABS: Basophils % 0.2 %; Hematocrit 40.1 % (42.0-52.0); Lymphocytes # 2.7 10^3/uL (0.8-4.8); Lymphocytes % 54.5 %; Mean Corpuscular HGB Conc 32.4 g/dL (30.0-36.0); Mean Corpuscular Hemoglobin 31.4 pg (28.0-34.0); Mean Corpuscular Volume 96.9 fl (80-94); Mean Platelet Volume 10.1 fL (7.4-10.4); Monocytes # 0.5 10^3/uL (0.2-0.9); Monocytes % 9.6 %; Neutrophils % 33.9 %; Nucleated Red Blood Cells % 0 %; Platelet Count 150 10^3/cmm (130-400); Red Blood Count 4.14 10^6/uL (4.1-5.3); Red Cell Distribution Width 12.9 % (12.1-15.1)
[2022-04-30 12:52] LABS: Alanine Aminotransferase 25 U/L (0-41); Albumin Level 4.3 g/dL (3.5-5.2); Alkaline Phosphatase 90 U/L (40-130); Aspartate Amino Transferase 31 U/L (0-40); Blood Urea Nitrogen 13 mg/dL (8-23); Calcium 9.3 mg/dL (8.5-10.5); Carbon Dioxide 24 mmol/L (22-29); Chloride 101 mmol/L (98-107); Globulin 2.8 g/dL (1.3-4.6); Glucose 118 mg/dL (65-115); Osmolality Calculated 283 mOsm/kg (285-295); Sodium 136 mmol/L (136-145); Total Bilirubin 0.6 mg/dL (0.15-1.2); Total Protein 7.1 g/dL (6.6-8.7)
[2022-04-30 12:54] LABS: Anion Gap 14.9 (5-19); Potassium 3.9 mmol/L (3.5-5.1)
[2022-04-30 12:55] LABS: Lactate Dehydrogenase 303 U/L (135-225)
== END 2022-05-05 23:59 | disposition home or self-care (01) ==
PROVIDERS: PCP Nurse Practitioner; Visit Provider Internal Medicine Hematology & Oncology
DX: C91.10 Chronic lymphocytic leukemia of B-cell type not having achieved remission (principal); D70.9 Neutropenia, unspecified; R74.02 Elevation of levels of lactic acid dehydrogenase [LDH]; Z79.899 Other long term (current) drug therapy; Z87.891 Personal history of nicotine dependence; L85.3 Xerosis cutis
CPT/HCPCS: 36415; 80053; 83615; 85025; 99214

== ENCOUNTER → 2022-05-04 13:25 | Outpatient (BNVA) | payer MEDICARE, OTHER, SELFPAY | PROVIDERS: PCP Nurse Practitioner; Visit Provider Internal Medicine Cardiovascular Disease | DX: I48.0 Paroxysmal atrial fibrillation (principal); C91.10 Chronic lymphocytic leukemia of B-cell type not having achieved remission; E11.9 Type 2 diabetes mellitus without complications; E78.5 Hyperlipidemia, unspecified; I10 Essential (primary) hypertension; Z87.891 Personal history of nicotine dependence; Z79.01 Long term (current) use of anticoagulants | CPT/HCPCS: 99214 ==

== ENCOUNTER 2022-05-06 16:34 | Outpatient (CLI) | payer MEDICARE, OTHER, SELFPAY ==
--- NOTE | 2022-05-06 17:00 | CT_ITS ---
WS: [id number] CT NECK WITH CONTRAST HISTORY: follow up TECHNIQUE: Contiguous 5 mm axial images are performed through the neck with intravenous contrast. Sag ittal and coronal reformats are also submitted. All CT scans at [facility] use at least one o f these dose optimization techniques: automated exposure control; mA and/or kV adjustment per patient size (includes targeted exams where dose is matched to clinical indication); or iterative reconstruc tion. CONTRAST: CONTRAST: Omnipaque 350; 95 mL IV. DLP: 273.52 mGy.cm COMPARISON: 10/28/2020 Nasopharynx, oropharynx, hypopharynx and larynx are unremarkable. No soft tissue masses or abnormal e nhancement. No residual soft tissue thickening involving the LEFT vallecula. Torus tubarius and fossa of Rosenmuller and parapharyngeal fat are normal. There is no significant residual lymphadenopathy. There is marked improvement in the bilateral cervic al chain lymphadenopathy. No residual enlarged lymph nodes. Supraclavicular lymph nodes have also res olved. Thyroid gland is enlarged. RIGHT thyroid lobe extends substernal and is heterogeneous but similar to prior studies. No parotid mass. No osteoblastic or osteolytic bone disease. Small caliber but patent RIGHT vertebral artery. Visualized portions of the skull base demonstrate no abnormalities. Orbits and globes are within norm al limits. No soft tissue masses. Visualized paranasal sinuses and mastoid air cells are normal. Lung apices are clear. CT/CT neck w con* [id number] IMPRESSION: 1. Complete resolution of the bilateral cervical chain and supraclavicular lym phadenopathy. No residual adenopathy. 2. No residual soft tissue in the LEFT larynx as described on the prior study.
[2022-05-06] MEDS: iohexol 350 mg/mL 500 mL Btl (per mL) IV (17:17)
== END 2022-05-06 16:35 | disposition home or self-care (01) ==
LOC: RAD 16:39
PROVIDERS: PCP Nurse Practitioner; Visit Provider Internal Medicine Hematology & Oncology
DX: C91.10 Chronic lymphocytic leukemia of B-cell type not having achieved remission (principal); R59.0 Localized enlarged lymph nodes
CPT/HCPCS: 70491; Q9967

== ENCOUNTER 2022-07-20 11:42 | Outpatient (CLI) | payer MEDICARE, OTHER, SELFPAY ==
[2022-07-20] MEDS: iohexol 350 mg/mL 500 mL Btl (per mL) PO (13:20)
--- NOTE | 2022-07-20 13:30 | CTR_ITS ---
PROCEDURE INFORMATION: Exam: CT Chest With Contrast; Diagnostic Exam date and time: 07/20/2022 1:53 PM Age: 71 years old Clinical indication: Condition or disease; Cancer; Other: Leukemia; Follow-up oncological assessment; Additional info: Follow up, to be completed just prior to next oncology visit TECHNIQUE: Imaging protocol: Diagnostic computed tomography of the chest with contrast. Radiation optimization: All CT scans at this facility use at least one of these dose optimization techniques: automated exposure control; mA and/or kV adjustment per patient size (includes targeted exams where dose is matched to clinical indication); or iterative reconstruction. Contrast material: OMNI 350; Contrast volume: 100 ml; Contrast route: INTRAVENOUS (IV); REPORTING DATA: Count of CT and Cardiac NM exams in prior 12 months: This patient has received [address] and 0 known cardiac nuclear medicine studies in the 12 months prior to the current study. COMPARISON: CT chest abdpel w/*[id number] 10/24/2020 1:59 PM RADIATION DOSE METRICS: Total DLP (mGy-cm): 1254.05 FINDINGS: Thyroid: Heterogenous 2.2 cm mass arising from the posterior margin of the right lobe of the thyroid (axial series 3, image 9), similar to prior exam. Possible 13 mm hypoattenuating nodule in the right lobe of the thyroid (axial series 3, image 9). Lungs: Mild bronchiectasis in the medial and posterior basal segments of the lower lobes. No suspicious pulmonary nodules identified. Pleural spaces: Unremarkable. No pneumothorax. No pleural effusion. Heart: The heart is within normal limits for size. There is no evidence of pericardial abnormality. Coronary arteries: Coronary artery calcifications noted. Lymph nodes: Interval resolution of previously noted bilateral axillary lymphadenopathy. Right paratracheal lymph node versus exophytic thyroid mass measuring 2.1 x 3.2 cm (axial series 3, image 14), unchanged from prior exam. Resolution of previously noted definitive mediastinal lymphadenopathy. Vasculature: Unremarkable. No aortic aneurysm. Bones/joints: Multilevel degenerative changes in the spine. Soft tissues: Unremarkable. COMMENTS: Consistent with the [employer]'s Incidental Findings Committee white paper (J Am Liz Radiol 2015): In patients aged 35 years and older with an incidental thyroid nodule equal to or greater than 1.[address], MRI or extrathyroidal US, further evaluation with dedicated thyroid US is recommended for patients with normal life expectancy and without comorbidities. For smaller nodules without suspicious features, no further evaluation or follow up is recommended. PROCEDURE INFORMATION: Exam: CT Abdomen And Pelvis With Contrast Exam date and time: 07/20/2022 1:53 PM Age: 71 years old Clinical indication: Condition or disease; Cancer; Other: Leukemia; Follow-up oncological assessment; Additional info: Follow up, to be completed just prior to next oncology visit TECHNIQUE: Imaging protocol: Computed tomography of the abdomen and pelvis with contrast. Radiation optimization: All CT scans at this facility use at least one of these dose optimization techniques: automated exposure control; mA and/or kV adjustment per patient size (includes targeted exams where dose is matched to clinical indication); or iterative reconstruction. Contrast material: OMNI 350; Contrast volume: 100 ml; Contrast route: INTRAVENOUS (IV); REPORTING DATA: Count of CT and Cardiac NM exams in prior 12 months: This patient has received [address] and 0 known cardiac nuclear medicine studies in the 12 months prior to the current study. COMPARISON: CT chest abdpel w/*[id number] 10/24/2020 1:59 PM RADIATION DOSE METRICS: Total DLP (mGy-cm): 1254.05 FINDINGS: Liver: The liver is normal in size and contour. Gallbladder and bile ducts: Calcified gallstone noted. No gallbladder wall thickening or pericholecystic fat stranding or fluid. Pancreas: The pancreas appears normal. Spleen: The spleen appears normal. Adrenal glands: The adrenals appear normal. Kidneys and ureters: Prominence of the left-sided renal collecting system similar to prior exam. Mild left-sided hydronephrosis similar to prior exam. Trace right-sided hydronephrosis similar to prior exam. No perinephric fat stranding. Stomach and bowel: The stomach is unremarkable. The small bowel loops are not abnormally dilated. The large bowel loops are not abnormally dilated. Appendix: The appendix appears normal. Intraperitoneal space: No ascites or significant fluid collection. Vasculature: The aorta is nonaneurysmal. The IVC appears normal. Lymph nodes: Resolution of previously noted iliac chain and inguinal lymphadenopathy. Urinary bladder: Mild circumferential wall thickening of the urinary bladder likely related to partial nondistention and or chronic mild outlet obstruction. Reproductive: Prostatomegaly again noted. Bones/joints: Unremarkable. Soft tissues: Unremarkable. CT/CT chest abdpel w/*[id number] IMPRESSION: 1. Heterogenous 2.2 cm mass arising from the posterior margin of the right lobe of the thyroid, similar to prior exam. 2. Right paratracheal lymph node versus exophytic thyroid mass measuring 2.1 x 3.2 cm, unchanged from prior exam. 3. Resolution of previously noted definitive mediastinal and axillary lymphadenopathy. IMPRESSION: 1. Resolution of previously noted iliac chain and inguinal lymphadenopathy. 2. Cholelithiasis without evidence of acute cholecystitis.
[2022-07-20 13:50] LABS: Blood Urea Nitrogen 13 mg/dL (8-23)
== END 2022-07-20 11:43 | disposition home or self-care (01) ==
LOC: RAD 11:47
PROVIDERS: PCP Nurse Practitioner; Visit Provider Internal Medicine Hematology & Oncology
DX: C91.10 Chronic lymphocytic leukemia of B-cell type not having achieved remission (principal); R59.0 Localized enlarged lymph nodes; K80.20 Calculus of gallbladder without cholecystitis without obstruction
CPT/HCPCS: 71260; 74177; 82565; 84520; 99214; Q9967

== ENCOUNTER 2022-08-06 13:46 | Oncology outpatient (recurring) (ONCR) | payer MEDICARE, OTHER, SELFPAY ==
[2022-08-06 14:06] VITALS: BP 154/72; PULSE 63; RESP 18; TEMP 36.9; O2SAT 96
[2022-08-06 15:32] LABS: Estmated Average Glucose 131; Hemoglobin A1C 6.2 % (4.0-6.0)
[2022-08-06 15:48] LABS: Hemoglobin 13.5 g/dL (11.7-16.6); Lymphocytes % 54.1 %; Mean Corpuscular HGB Conc 33.8 g/dL (30.0-36.0); Mean Corpuscular Hemoglobin 31.9 pg (28.0-34.0); Mean Corpuscular Volume 94.6 fl (80-94); Mean Platelet Volume 9.8 fL (7.4-10.4); Monocytes # 0.4 10^3/uL (0.2-0.9); Monocytes % 10.1 %; Neutrophils # 1.26 10^3/uL (1.8-7.7); Neutrophils % 34.2 %; Nucleated Red Blood Cells % 0 %; Platelet Count 122 10^3/cmm (130-400); Red Blood Count 4.23 10^6/uL (4.1-5.3); Red Cell Distribution Width 13.2 % (12.1-15.1); White Blood Count 3.7 10^3/uL (4.0-10.0)
[2022-08-06 15:53] LABS: Alanine Aminotransferase 24 U/L (0-41); Albumin Level 4.3 g/dL (3.5-5.2); Alkaline Phosphatase 83 U/L (40-130); Anion Gap 15.7 (5-19); Aspartate Amino Transferase 28 U/L (0-40); Blood Urea Nitrogen 11 mg/dL (8-23); Calcium 8.7 mg/dL (8.5-10.5); Carbon Dioxide 24 mmol/L (22-29); Chloride 102 mmol/L (98-107); Chol HDL Ratio 4.31 mg/dL (1.0-5.00); Cholesterol 125 mg/dL (0-200); Globulin 2.6 g/dL (1.3-4.6); Glucose 102 mg/dL (65-115); HDL Cholesterol 29 mg/dL (60-100); Lactate Dehydrogenase 255 U/L (135-225); Osmolality Calculated 286 mOsm/kg (285-295); Potassium 3.7 mmol/L (3.5-5.1); Sodium 138 mmol/L (136-145); Total Bilirubin 0.5 mg/dL (0.15-1.2); Total Protein 6.9 g/dL (6.6-8.7); Triglycerides 485 mg/dL (0-150); VLDL Cholestrol Calculation 97 mg/dL (0-30)
== END 2022-09-04 23:59 | disposition home or self-care (01) ==
PROVIDERS: PCP Nurse Practitioner; Visit Provider Internal Medicine Hematology & Oncology
DX: C91.10 Chronic lymphocytic leukemia of B-cell type not having achieved remission (principal); C91.90 Lymphoid leukemia, unspecified not having achieved remission
CPT/HCPCS: 36415; 80053; 80061; 83036; 83615; 85025; 99213

== ENCOUNTER 2022-09-14 12:09 | Oncology outpatient (recurring) (ONCR) | payer MEDICARE, OTHER, SELFPAY ==
[2022-09-14 12:16] VITALS: BP 150/78; PULSE 69; RESP 18; TEMP 36.7; O2SAT 95
[2022-09-14 12:28] LABS: Hemoglobin 13.9 g/dL (11.7-16.6); Lymphocytes # 3.2 10^3/uL (0.8-4.8); Lymphocytes % 57.9 %; Mean Corpuscular HGB Conc 33.9 g/dL (30.0-36.0); Mean Corpuscular Hemoglobin 31.3 pg (28.0-34.0); Mean Corpuscular Volume 92.3 fl (80-94); Mean Platelet Volume 9.7 fL (7.4-10.4); Monocytes # 0.6 10^3/uL (0.2-0.9); Monocytes % 10.2 %; Neutrophils # 1.63 10^3/uL (1.8-7.7); Neutrophils % 29.7 %; Nucleated Red Blood Cells % 0 %; Platelet Count 150 10^3/cmm (130-400); Red Blood Count 4.44 10^6/uL (4.1-5.3); Red Cell Distribution Width 13.1 % (12.1-15.1); White Blood Count 5.5 10^3/uL (4.0-10.0)
[2022-09-14 12:44] LABS: Alanine Aminotransferase 26 U/L (0-41); Albumin Level 4.3 g/dL (3.5-5.2); Alkaline Phosphatase 93 U/L (40-130); Anion Gap 15.8 (5-19); Aspartate Amino Transferase 25 U/L (0-40); Blood Urea Nitrogen 13 mg/dL (8-23); Calcium 9.1 mg/dL (8.5-10.5); Carbon Dioxide 23 mmol/L (22-29); Chloride 99 mmol/L (98-107); Globulin 2.8 g/dL (1.3-4.6); Glucose 130 mg/dL (65-115); Lactate Dehydrogenase 259 U/L (135-225); Osmolality Calculated 280 mOsm/kg (285-295); Potassium 3.8 mmol/L (3.5-5.1); Sodium 134 mmol/L (136-145); Total Bilirubin 0.5 mg/dL (0.15-1.2); Total Protein 7.1 g/dL (6.6-8.7)
== END 2022-10-05 23:59 | disposition home or self-care (01) ==
PROVIDERS: Nurse Practitioner Family; PCP Nurse Practitioner; Visit Provider Internal Medicine Hematology & Oncology
DX: C91.90 Lymphoid leukemia, unspecified not having achieved remission; Z87.891 Personal history of nicotine dependence
CPT/HCPCS: 36415; 80053; 83615; 85025; 99214

== ENCOUNTER → 2022-11-30 14:39 | Outpatient (BNVA) | payer MEDICARE, OTHER, SELFPAY | PROVIDERS: PCP Nurse Practitioner; Visit Provider Internal Medicine Cardiovascular Disease | DX: R07.9 Chest pain, unspecified (principal); I48.0 Paroxysmal atrial fibrillation; C91.10 Chronic lymphocytic leukemia of B-cell type not having achieved remission; E78.5 Hyperlipidemia, unspecified; E11.9 Type 2 diabetes mellitus without complications; I10 Essential (primary) hypertension; R94.31 Abnormal electrocardiogram [ECG] [EKG]; Z87.891 Personal history of nicotine dependence | CPT/HCPCS: 93005; 99214 ==

== ENCOUNTER 2022-12-16 12:15 | Oncology outpatient (recurring) (ONCR) | payer MEDICARE, OTHER, SELFPAY ==
[2022-12-16 12:18] VITALS: BP 137/77; PULSE 65; RESP 16; TEMP 36.6; O2SAT 95
[2022-12-16 12:33] LABS: Hematocrit 40.1 % (37-53); Lymphocytes % 42.2 %; Mean Corpuscular HGB Conc 34.2 g/dL (30-55); Mean Corpuscular Hemoglobin 31.9 pg (27-33); Mean Corpuscular Volume 93.5 fl (82-101); Mean Platelet Volume 9.7 fL (7.4-10.4); Monocytes # 0.7 10^3/uL (0.2-0.9); Monocytes % 9.5 %; Neutrophils # 3.37 10^3/uL (1.8-7.7); Nucleated Red Blood Cells % 0 %; Platelet Count 141 10^3/cmm (157-399); Red Blood Count 4.29 10^6/uL (3.85-5.65); Red Cell Distribution Width 13.4 % (12.1-15.1); White Blood Count 7.02 10^3/uL (3.29-11.43)
[2022-12-16 12:49] LABS: Alanine Aminotransferase 25 U/L (0-41); Albumin Level 4.4 g/dL (3.5-5.2); Alkaline Phosphatase 94 U/L (40-130); Aspartate Amino Transferase 21 U/L (0-40); Blood Urea Nitrogen 12 mg/dL (8-23); Calcium 9.2 mg/dL (8.5-10.5); Carbon Dioxide 26 mmol/L (22-29); Chloride 102 mmol/L (98-107); Globulin 2.8 g/dL (1.3-4.6); Glucose 117 mg/dL (65-115); Osmolality Calculated 287 mOsm/kg (285-295); Sodium 138 mmol/L (136-145); Total Bilirubin 0.5 mg/dL (0.15-1.2); Total Protein 7.2 g/dL (6.6-8.7)
[2022-12-16 12:51] LABS: Anion Gap 14.1 (5-19); Lactate Dehydrogenase 177 U/L (135-225); Potassium 4.1 mmol/L (3.5-5.1)
== END 2023-01-05 23:59 | disposition home or self-care (01) ==
PROVIDERS: Internal Medicine Medical Oncology; PCP Nurse Practitioner; Visit Provider Internal Medicine Hematology & Oncology
DX: C91.90 Lymphoid leukemia, unspecified not having achieved remission; C91.10 Chronic lymphocytic leukemia of B-cell type not having achieved remission
CPT/HCPCS: 36415; 80053; 83615; 85025; 99215

== ENCOUNTER 2023-03-25 12:44 | Oncology outpatient (recurring) (ONCR) | payer MEDICARE, OTHER, SELFPAY ==
[2023-03-25 13:25] VITALS: BP 149/86; PULSE 74; RESP 16; TEMP 36.9; O2SAT 95
[2023-03-25 13:32] LABS: Basophils % 0.1 %; Eosinophils # 0.1 10^3/uL (0.0-0.8); Eosinophils % 1.2 %; Hematocrit 41.8 % (37-53); Lymphocytes % 34.9 %; Mean Corpuscular HGB Conc 33.3 g/dL (30-55); Mean Corpuscular Hemoglobin 31.1 pg (27-33); Mean Corpuscular Volume 93.5 fl (82-101); Mean Platelet Volume 9.5 fL (7.4-10.4); Monocytes % 11.1 %; Neutrophils # 4.53 10^3/uL (1.8-7.7); Neutrophils % 52.5 %; Nucleated Red Blood Cells % 0 %; Platelet Count 142 10^3/cmm (157-399); Red Blood Count 4.47 10^6/uL (3.85-5.65); Red Cell Distribution Width 12.6 % (12.1-15.1); White Blood Count 8.63 10^3/uL (3.29-11.43)
[2023-03-25 13:50] LABS: Alanine Aminotransferase 15 U/L (0-41); Albumin Level 4.2 g/dL (3.5-5.2); Alkaline Phosphatase 101 U/L (40-130); Anion Gap 15.9 (5-19); Aspartate Amino Transferase 13 U/L (0-40); Blood Urea Nitrogen 12 mg/dL (8-23); Calcium 9.3 mg/dL (8.5-10.5); Carbon Dioxide 24 mmol/L (22-29); Chloride 101 mmol/L (98-107); Globulin 3.2 g/dL (1.3-4.6); Glucose 142 mg/dL (65-115); Lactate Dehydrogenase 136 U/L (135-225); Osmolality Calculated 286 mOsm/kg (285-295); Potassium 3.9 mmol/L (3.5-5.1); Sodium 137 mmol/L (136-145); Total Bilirubin 0.6 mg/dL (0.15-1.2); Total Protein 7.4 g/dL (6.6-8.7)
== END 2023-04-07 23:59 | disposition home or self-care (01) ==
LOC: ONCMED 12:46
PROVIDERS: Nurse Practitioner Family; PCP Nurse Practitioner; Visit Provider Internal Medicine Hematology & Oncology
DX: C91.90 Lymphoid leukemia, unspecified not having achieved remission (principal); Z79.899 Other long term (current) drug therapy
CPT/HCPCS: 36415; 80053; 83615; 85025; 99214

== ENCOUNTER → 2023-04-29 08:21 | Outpatient (BNVA) | payer MEDICARE, OTHER, SELFPAY | PROVIDERS: PCP Nurse Practitioner; Visit Provider Nurse Practitioner | DX: I10 Essential (primary) hypertension (principal); E11.9 Type 2 diabetes mellitus without complications; Z12.5 Encounter for screening for malignant neoplasm of prostate; E55.9 Vitamin D deficiency, unspecified | CPT/HCPCS: 80053; 80061; 82306; 82607; 83036; 84443; 85025; G0103 ==

== ENCOUNTER → 2023-06-22 13:57 | Outpatient (BNVA) | payer MEDICARE, OTHER, SELFPAY | PROVIDERS: PCP Nurse Practitioner; Visit Provider Internal Medicine Cardiovascular Disease | DX: E78.5 Hyperlipidemia, unspecified (principal); I10 Essential (primary) hypertension; E11.9 Type 2 diabetes mellitus without complications; F17.220 Nicotine dependence, chewing tobacco, uncomplicated; Z79.84 Long term (current) use of oral hypoglycemic drugs | CPT/HCPCS: 99213 ==

== ENCOUNTER 2023-06-29 13:08 | Oncology outpatient (recurring) (ONCR) | payer MEDICARE, OTHER, SELFPAY ==
[2023-06-29 13:31] LABS: Hematocrit 44.4 % (37-53); Mean Corpuscular HGB Conc 32.4 g/dL (30-55); Mean Corpuscular Hemoglobin 31.2 pg (27-33); Mean Corpuscular Volume 96.3 fl (82-101); Mean Platelet Volume 10.4 fL (7.4-10.4); Platelet Count 110 10^3/cmm (157-399); Red Blood Count 4.61 10^6/uL (3.85-5.65); Red Cell Distribution Width 13.5 % (12.1-15.1); White Blood Count 15.65 10^3/uL (3.29-11.43)
[2023-06-29 13:48] LABS: Alanine Aminotransferase 12 U/L (0-41); Albumin Level 4.5 g/dL (3.5-5.2); Alkaline Phosphatase 80 U/L (40-130); Anion Gap 14.5 (5-19); Aspartate Amino Transferase 14 U/L (0-40); Blood Urea Nitrogen 15 mg/dL (8-23); Calcium 8.9 mg/dL (8.5-10.5); Carbon Dioxide 28 mmol/L (22-29); Chloride 104 mmol/L (98-107); Globulin 2.4 g/dL (1.3-4.6); Glucose 147 mg/dL (65-115); Lactate Dehydrogenase 152 U/L (135-225); Osmolality Calculated 298 mOsm/kg (285-295); Potassium 4.5 mmol/L (3.5-5.1); Sodium 142 mmol/L (136-145); Total Bilirubin 0.5 mg/dL (0.15-1.2); Total Protein 6.9 g/dL (6.6-8.7)
[2023-06-29 15:04] LABS: Slide Review Slide Review Perform
[2023-06-29 15:05] LABS: Absolute Eosinophils 0.3 10^3/cmm (0.0-0.7); Absolute Neutrophil 3.8 10^3/cmm (1.4-6.5); Absolute Segmented Neutrophil 3.8 10/cmm (1.6-7.1); Eosinophils 2 %; Lymphocytes 55 %; Lymphocytes Absolute 11.4 10^3/cmm (1.2-3.4); Monocytes Absolute 0.2 10^3/cmm (0.1-0.6); Platelet Estimate Decreased (Normal); Segmented Neutrophils 24 %; Total Cells Counted 100 (0-100)
== END 2023-07-06 23:59 | disposition home or self-care (01) ==
PROVIDERS: Nurse Practitioner Family; PCP Nurse Practitioner; Visit Provider Internal Medicine Hematology & Oncology
DX: C91.90 Lymphoid leukemia, unspecified not having achieved remission (principal); F17.220 Nicotine dependence, chewing tobacco, uncomplicated
CPT/HCPCS: 36415; 80053; 83615; 85007; 85025; 99214

== ENCOUNTER → 2023-07-14 10:21 | Outpatient (BNVA) | payer MEDICARE, OTHER, SELFPAY | PROVIDERS: PCP Nurse Practitioner; Visit Provider Nurse Practitioner | DX: E11.9 Type 2 diabetes mellitus without complications (principal); I10 Essential (primary) hypertension; R39.11 Hesitancy of micturition; E78.5 Hyperlipidemia, unspecified; I48.0 Paroxysmal atrial fibrillation | CPT/HCPCS: 80053; 80061; 82607; 83036; 85007; 85025 ==

== ENCOUNTER 2023-09-29 13:05 | Oncology outpatient (recurring) (ONCR) | payer MEDICARE, OTHER, SELFPAY ==
[2023-09-29 13:38] LABS: Hematocrit 45.3 % (37-53); Mean Corpuscular Hemoglobin 30.6 pg (27-33); Mean Corpuscular Volume 95.6 fl (82-101); Mean Platelet Volume 11.4 fL (7.4-10.4); Platelet Count 104 10^3/cmm (157-399); Red Blood Count 4.74 10^6/uL (3.85-5.65); Red Cell Distribution Width 13.4 % (12.1-15.1)
[2023-09-29 13:55] LABS: Alanine Aminotransferase 14 U/L (0-41); Albumin Level 4.5 g/dL (3.5-5.2); Alkaline Phosphatase 92 U/L (40-130); Anion Gap 14.1 (5-19); Aspartate Amino Transferase 17 U/L (0-40); Blood Urea Nitrogen 18 mg/dL (8-23); Carbon Dioxide 28 mmol/L (22-29); Chloride 102 mmol/L (98-107); Globulin 2.9 g/dL (1.3-4.6); Glucose 106 mg/dL (65-115); Lactate Dehydrogenase 254 U/L (135-225); Osmolality Calculated 292 mOsm/kg (285-295); Potassium 4.1 mmol/L (3.5-5.1); Sodium 140 mmol/L (136-145); Total Bilirubin 0.5 mg/dL (0.15-1.2); Total Protein 7.4 g/dL (6.6-8.7)
[2023-09-29 15:25] LABS: Slide Review Slide Review Perform
[2023-09-29 15:26] LABS: White Blood Count 33.81 10^3/uL (3.29-11.43)
[2023-09-29 15:28] LABS: Absolute Segmented Neutrophil 3.4 10/cmm (1.6-7.1); Segmented Neutrophils 10 %; Total Cells Counted 100 (0-100)
[2023-09-29 15:29] LABS: Eosinophils 0 %; Lymphocytes 53 %; Lymphocytes Absolute 29.8 10^3/cmm (1.2-3.4); Monocytes Absolute 0.7 10^3/cmm (0.1-0.6); Platelet Estimate Decreased (Normal)
== END 2023-10-06 23:59 | disposition home or self-care (01) ==
PROVIDERS: Nurse Practitioner Family; PCP Nurse Practitioner; Visit Provider Internal Medicine Hematology & Oncology
DX: C91.90 Lymphoid leukemia, unspecified not having achieved remission (principal); Z79.899 Other long term (current) drug therapy
CPT/HCPCS: 36415; 80053; 83615; 85007; 85025; 99214

== ENCOUNTER → 2023-11-16 13:34 | Outpatient (BNVA) | payer MEDICARE, OTHER, SELFPAY | PROVIDERS: PCP Nurse Practitioner; Referring Provider Nurse Practitioner; Visit Provider Dermatology | DX: D48.5 Neoplasm of uncertain behavior of skin (principal); D22.39 Melanocytic nevi of other parts of face; L82.1 Other seborrheic keratosis; L81.4 Other melanin hyperpigmentation; L57.8 Other skin changes due to chronic exposure to nonionizing radiation; D22.5 Melanocytic nevi of trunk | CPT/HCPCS: 11102; 99203 ==

== ENCOUNTER → 2023-12-02 09:10 | Outpatient (BNVA) | payer MEDICARE, OTHER, SELFPAY | PROVIDERS: PCP Nurse Practitioner; Visit Provider Dermatology | DX: C44.41 Basal cell carcinoma of skin of scalp and neck (principal) | CPT/HCPCS: 12032; 17311 ==

== ENCOUNTER → 2023-12-09 10:17 | Outpatient (BNVA) | payer MEDICARE, OTHER, SELFPAY | PROVIDERS: PCP Nurse Practitioner; Visit Provider Dermatology | DX: T14.8XXA Other injury of unspecified body region, initial encounter (principal); X58.XXXA Exposure to other specified factors, initial encounter; Z48.817 Encounter for surgical aftercare following surgery on the skin and subcutaneous tissue | CPT/HCPCS: 99214 ==

== ENCOUNTER → 2023-12-14 10:25 | Outpatient (BNVA) | payer MEDICARE, OTHER, SELFPAY | PROVIDERS: PCP Nurse Practitioner; Visit Provider Dermatology | DX: T14.8XXA Other injury of unspecified body region, initial encounter (principal); X58.XXXA Exposure to other specified factors, initial encounter; Z48.817 Encounter for surgical aftercare following surgery on the skin and subcutaneous tissue | CPT/HCPCS: 99214 ==

== ENCOUNTER 2023-12-30 13:43 | Oncology outpatient (recurring) (ONCR) | payer MEDICARE, OTHER, SELFPAY ==
[2023-12-30 14:00] LABS: Hematocrit 40.9 % (37-53); Mean Corpuscular HGB Conc 31.3 g/dL (30-55); Mean Corpuscular Hemoglobin 29.9 pg (27-33); Mean Corpuscular Volume 95.6 fl (82-101); Mean Platelet Volume 10.1 fL (7.4-10.4); Platelet Count 115 10^3/cmm (157-399); Red Blood Count 4.28 10^6/uL (3.85-5.65); Red Cell Distribution Width 15.8 % (12.1-15.1)
[2023-12-30 14:10] LABS: Estmated Average Glucose 137; Hemoglobin A1C 6.4 % (4.0-6.0)
[2023-12-30 14:21] LABS: Alanine Aminotransferase 22 U/L (0-41); Albumin Level 4.4 g/dL (3.5-5.2); Alkaline Phosphatase 102 U/L (40-130); Anion Gap 16.1 (5-19); Aspartate Amino Transferase 30 U/L (0-40); Blood Urea Nitrogen 17 mg/dL (8-23); Calcium 8.9 mg/dL (8.5-10.5); Carbon Dioxide 25 mmol/L (22-29); Chloride 101 mmol/L (98-107); Chol HDL Ratio 4.96 mg/dL (1.0-5.00); Cholesterol 129 mg/dL (0-200); Creatinine Clr Calc Pharmacy 85.4329; Globulin 3.5 g/dL (1.3-4.6); Glucose 106 mg/dL (65-115); HDL Cholesterol 26 mg/dL (60-100); LDL Cholesterol Calculated 70 mg/dL (50-129); Lactate Dehydrogenase 459 U/L (135-225); Osmolality Calculated 286 mOsm/kg (285-295); Potassium 5.1 mmol/L (3.5-5.1); Sodium 137 mmol/L (136-145); Thyroid Stimulating Hormone 1.07 uIU/mL (0.27-4.20); Total Bilirubin 0.5 mg/dL (0.15-1.2); Total Protein 7.9 g/dL (6.6-8.7); Triglycerides 163 mg/dL (0-150); VLDL Cholestrol Calculation 33 mg/dL (0-30)
[2023-12-30 14:53] LABS: Slide Review Slide Review Perform
[2023-12-30 15:00] LABS: Absolute Segmented Neutrophil 2.8 10/cmm (1.6-7.1); Segmented Neutrophils 2 %; Total Cells Counted 100 (0-100)
[2023-12-30 15:01] LABS: Eosinophils 0 %; Lymphocytes 74 %; Monocytes Absolute 2.8 10^3/cmm (0.1-0.6)
[2023-12-30 15:02] LABS: Platelet Estimate Decreased (Normal)
[2023-12-30 15:03] LABS: Smudge Cells 2+
== END 2024-01-06 23:59 | disposition home or self-care (01) ==
PROVIDERS: Nurse Practitioner Family; PCP Nurse Practitioner; Visit Provider Internal Medicine Hematology & Oncology
DX: Z79.899 Other long term (current) drug therapy; E11.9 Type 2 diabetes mellitus without complications; I10 Essential (primary) hypertension; C91.10 Chronic lymphocytic leukemia of B-cell type not having achieved remission; Z53.9 Procedure and treatment not carried out, unspecified reason
CPT/HCPCS: 36415; 80053; 80061; 83036; 83615; 84443; 85007; 85025; 99213; 99214

== ENCOUNTER 2024-02-02 12:30 | Oncology outpatient (recurring) (ONCR) | payer MEDICARE, OTHER, SELFPAY ==
[2024-01-12] MEDS: iohexol 350 mg/mL 500 mL Btl (per mL) IV (15:31)
[2024-01-12] MEDS: iohexol 350 mg/mL 500 mL Btl (per mL) PO (15:32)
--- NOTE | 2024-01-12 15:45 | CT_ITS ---
WS: [id number] CT CHEST, ABDOMEN, AND PELVIS TECHNIQUE: Contrast-enhanced CT of the chest, abdomen, and pelvis with coronal and sagittal reformatt ed images. CLINICAL INFORMATION: elevated WBC, Dx CLL COMPARISON: 07/20/2022 DLP: 1099.[address] scans at [facility] use at least one of these dose optimization techniques: automated e xposure control; mA and/or kV adjustment per patient size (includes targeted exams where dose is matc hed to clinical indication); or iterative reconstruction. CT CHEST: Bulky axillary lymphadenopathy has developed since 07/20/2022. Progressed mediastinal and paratracheal lymphadenopathy. Again seen is the exophytic RIGHT thyroid nodule extending into the mediastinum unc hanged in appearance. Normal caliber thoracic aorta. Aortic calcification. Coronary calcification. Moderate thoracic kyphosis. Hypertrophic changes thoracic spine. Lungs are well aerated. No acute pulmonary infiltrates. CT ABDOMEN AND PELVIS: Hepatomegaly and splenomegaly progressed compared to previous. Marked splenomegaly measuring 18.7 cm [id number]. Cholelithiasis. Normal GE junction. Markedly enlarged prostate appears progressed vicki red to previous measuring 8.7 x 8.6 cm with bladder outlet obstruction. New lymphadenopathy in the pelvis involving both iliac chains and just distal to the bifurcation. Khang ateral retroperitoneal lymphadenopathy. Marked lymphadenopathy along both pelvic sidewalls. Markedly enlarged femoral and inguinal lymph nodes bilaterally. Aortic calcification. Normal caliber abdominal aorta. Normal portal vein and splenic vein. A few prom inent lymph nodes in the upper abdomen and along the mesenteric axis. Scattered prominent mesenteric lymph nodes. Normal sigmoid colon. Normal appendix in the RIGHT lower quadrant. CT/CT chest abdpel w/*[id number] IMPRESSION: 1. Bulky axillary lymphadenopathy has developed compared to previous. Progress ed mediastinal and paratracheal lymphadenopathy. 2. New bulky pelvic lymphadenopathy described above along both iliac chains wo rse involving the pelvic sidewalls extending into the inguinal regions bilatera lly. 3. Markedly enlarged prostate appears progressed measuring 8.6 x 8.7 cm with e vidence of bladder outlet obstruction. Recommend correlation PSA. 4. Splenomegaly is progressed measuring 18.7 cm [id number]. 5. Cholelithiasis.
[2024-02-02 12:22] LABS: Hematocrit 37.1 % (37-53); Mean Corpuscular HGB Conc 30.7 g/dL (30-55); Mean Corpuscular Hemoglobin 30.9 pg (27-33); Mean Corpuscular Volume 100.5 fl (82-101); Mean Platelet Volume 10.4 fL (7.4-10.4); Platelet Count 95 10^3/cmm (157-399); Red Blood Count 3.69 10^6/uL (3.85-5.65); Red Cell Distribution Width 16.8 % (12.1-15.1)
[2024-02-02 12:26] LABS: Reticulocyte % 1.8 % (0.5-2.0)
[2024-02-02 12:41] LABS: White Blood Count 206.31 10^3/uL (3.29-11.43)
[2024-02-02 12:46] LABS: Slide Review Slide Review Perform
[2024-02-02 12:48] LABS: Absolute Segmented Neutrophil 6.2 10/cmm (1.6-7.1); Eosinophils 0 %; Lymphocytes 58 %; Lymphocytes Absolute 193.9 10^3/cmm (1.2-3.4); Monocytes Absolute 6.2 10^3/cmm (0.1-0.6); Segmented Neutrophils 3 %; Total Cells Counted 100 (0-100)
[2024-02-02 12:49] LABS: Absolute Neutrophil 6.2 10^3/cmm (1.4-6.5); Alanine Aminotransferase 13 U/L (0-41); Albumin Level 4.1 g/dL (3.5-5.2); Alkaline Phosphatase 109 U/L (40-130); Anion Gap 15.5 (5-19); Anisocytosis 1+; Aspartate Amino Transferase 26 U/L (0-40); Blood Urea Nitrogen 19 mg/dL (8-23); Calcium 9.1 mg/dL (8.5-10.5); Carbon Dioxide 25 mmol/L (22-29); Chloride 101 mmol/L (98-107); Creatinine Clr Calc Pharmacy 70.5134; Globulin 3.2 g/dL (1.3-4.6); Glucose 144 mg/dL (65-115); Lactate Dehydrogenase 442 U/L (135-225); Macrocytosis Trace; Osmolality Calculated 289 mOsm/kg (285-295); Platelet Estimate Decreased (Normal); Potassium 4.5 mmol/L (3.5-5.1); Smudge Cells 1+; Sodium 137 mmol/L (136-145); Total Bilirubin 0.5 mg/dL (0.15-1.2); Total Protein 7.3 g/dL (6.6-8.7); Uric Acid 6.4 mg/dL (3.4-7.0)
[2024-02-02 13:35] LABS: Immunoglobulin IGA 56 mg/dL (70-400); Immunoglobulin IGG 607 mg/dL (700-1600)
[2024-02-02 13:50] LABS: Immunoglobulin IGM 2605 mg/dL (40-230)
[2024-02-04 14:29] LABS: PROTEIN, TOTAL 8.3 g/dL (6.1-8.1)
[2024-02-07 08:45] LABS: ABNORMAL PROTEIN BAND 1 1.7 g/dL (NONE DETECTED); ALBUMIN 4.2 g/dL (3.8-4.8); ALPHA 1 GLOBULIN 0.3 g/dL (0.2-0.3); ALPHA 2 GLOBULIN 0.8 g/dL (0.5-0.9); BETA 1 GLOBULIN 0.5 g/dL (0.4-0.6); BETA 2 GLOBULIN 0.4 g/dL (0.2-0.5); GAMMA GLOBULIN 2.1 g/dL (0.8-1.7)
== END 2024-02-05 23:59 | disposition home or self-care (01) ==
PROVIDERS: PCP Nurse Practitioner; Visit Provider Internal Medicine
DX: Z87.891 Personal history of nicotine dependence; C91.10 Chronic lymphocytic leukemia of B-cell type not having achieved remission; Z53.9 Procedure and treatment not carried out, unspecified reason; Z92.25 Personal history of immunosuppression therapy
CPT/HCPCS: 36415; 71260; 74177; 80053; 82784; 83010; 83615; 84155; 84165; 84550; 85007; 85025; 85045; 99213

== ENCOUNTER 2024-03-09 13:53 | Oncology outpatient (recurring) (ONCR) | payer MEDICARE, OTHER, SELFPAY ==
[2024-03-09 16:26] LABS: Hematocrit 36.5 % (37-53); Mean Corpuscular HGB Conc 29.3 g/dL (30-55); Mean Corpuscular Hemoglobin 29.6 pg (27-33); Mean Corpuscular Volume 101.1 fl (82-101); Mean Platelet Volume 10.3 fL (7.4-10.4); Platelet Count 87 10^3/cmm (157-399); Red Blood Count 3.61 10^6/uL (3.85-5.65); Red Cell Distribution Width 16.9 % (12.1-15.1)
[2024-03-09 16:36] LABS: Eosinophils 0 %; Lymphocytes 13 %; Segmented Neutrophils 8 %; Total Cells Counted 100 (0-100)
[2024-03-09 16:37] LABS: Absolute Neutrophil 25.1 10^3/cmm (1.4-6.5); Absolute Segmented Neutrophil 25.1 10/cmm (1.6-7.1); Platelet Estimate Decreased (Normal)
[2024-03-09 16:40] LABS: White Blood Count 314.14 10^3/uL (3.29-11.43)
[2024-03-09 16:41] LABS: Alanine Aminotransferase 13 U/L (0-41); Albumin Level 4.1 g/dL (3.5-5.2); Alkaline Phosphatase 123 U/L (40-130); Anion Gap 17.3 (5-19); Aspartate Amino Transferase 26 U/L (0-40); Blood Urea Nitrogen 16 mg/dL (8-23); Calcium 9.4 mg/dL (8.5-10.5); Carbon Dioxide 24 mmol/L (22-29); Chloride 99 mmol/L (98-107); Creatinine Clr Calc Pharmacy 76.4358; Globulin 4.9 g/dL (1.3-4.6); Glucose 117 mg/dL (65-115); Lactate Dehydrogenase 444 U/L (135-225); Osmolality Calculated 280 mOsm/kg (285-295); Potassium 6.3 mmol/L (3.5-5.1); Sodium 134 mmol/L (136-145); Total Bilirubin 0.6 mg/dL (0.15-1.2); Uric Acid 6.2 mg/dL (3.4-7.0)
== END 2024-03-09 23:59 | disposition home or self-care (01) ==
PROVIDERS: PCP Nurse Practitioner; Visit Provider Internal Medicine
DX: C91.10 Chronic lymphocytic leukemia of B-cell type not having achieved remission; N40.0 Benign prostatic hyperplasia without lower urinary tract symptoms; Z87.891 Personal history of nicotine dependence; N13.8 Other obstructive and reflux uropathy; D89.2 Hypergammaglobulinemia, unspecified
CPT/HCPCS: 36415; 80053; 83615; 84550; 85007; 85027; 99213

== ENCOUNTER 2024-04-07 09:00 | Oncology outpatient (recurring) (ONCR) | payer MEDICARE, OTHER, SELFPAY ==
[2024-03-29 08:28] LABS: Alanine Aminotransferase 23 U/L (0-41); Albumin Level 3.8 g/dL (3.5-5.2); Alkaline Phosphatase 127 U/L (40-130); Anion Gap 13.9 (5-19); Aspartate Amino Transferase 24 U/L (0-40); Blood Urea Nitrogen 16 mg/dL (8-23); Calcium 9.4 mg/dL (8.5-10.5); Carbon Dioxide 29 mmol/L (22-29); Chloride 100 mmol/L (98-107); Creatinine Clr Calc Pharmacy 83.5569; Globulin 4.7 g/dL (1.3-4.6); Glucose 121 mg/dL (65-115); Lactate Dehydrogenase 322 U/L (135-225); Osmolality Calculated 288 mOsm/kg (285-295); Phosphorus 3.9 mg/dL (2.5-4.5); Potassium 4.9 mmol/L (3.5-5.1); Sodium 138 mmol/L (136-145); Total Bilirubin 0.4 mg/dL (0.15-1.2); Total Protein 8.5 g/dL (6.6-8.7)
[2024-03-29 08:44] LABS: Immunoglobulin IGG 532 mg/dL (700-1600)
[2024-03-29 08:46] LABS: Reticulocyte % 1.7 % (0.5-2.0)
[2024-03-29 08:51] LABS: Hematocrit 34.8 % (37-53); Mean Corpuscular HGB Conc 27.3 g/dL (30-55); Mean Corpuscular Hemoglobin 28.7 pg (27-33); Mean Corpuscular Volume 105.1 fl (82-101); Mean Platelet Volume 10.7 fL (7.4-10.4); Platelet Count 88 10^3/cmm (157-399); Red Blood Count 3.31 10^6/uL (3.85-5.65); Red Cell Distribution Width 17.3 % (12.1-15.1)
[2024-03-29 08:55] LABS: Hepatitis B Core AB, Total Non-Reactive (Nonreactive); Hepatitis B Surface AB < 3.5 (11.5-1000); Hepatitis B Surface Antigen Non-Reactive (Nonreactive)
[2024-03-29 09:00] LABS: Immunoglobulin IGA < 50 mg/dL (70-400); Immunoglobulin IGM 3098 mg/dL (40-230)
[2024-03-29 09:59] LABS: Absolute Neutrophil 11.6 10^3/cmm (1.4-6.5); Absolute Segmented Neutrophil 7.8 10/cmm (1.6-7.1); Band Neutrophils Absolute 3.9 10^3/cmm (0.0-1.2); Eosinophils 0 %; Lymphocytes 7 %; Lymphocytes Absolute 368.7 10^3/cmm (1.2-3.4); Monocytes Absolute 7.8 10^3/cmm (0.1-0.6); Platelet Estimate Decreased (Normal); Segmented Neutrophils 2 %; Slide Review Slide Review Perform; Total Cells Counted 100 (0-100)
[2024-03-29 10:02] LABS: White Blood Count 388.08 10^3/uL (3.29-11.43)
[2024-03-29 12:31] LABS: Erythrocyte Sedimentation Rate 65 mm/hr (0-10)
[2024-03-30 18:32] LABS: PROTEIN, TOTAL 8.4 g/dL (6.1-8.1)
[2024-03-31 16:30] LABS: ALBUMIN 3.9 g/dL (3.8-4.8); ALPHA 1 GLOBULIN 0.4 g/dL (0.2-0.3); ALPHA 2 GLOBULIN 0.9 g/dL (0.5-0.9); BETA 1 GLOBULIN 0.5 g/dL (0.4-0.6); BETA 2 GLOBULIN 0.5 g/dL (0.2-0.5); GAMMA GLOBULIN 2.3 g/dL (0.8-1.7)
[2024-04-07 09:10] LABS: Basophils # 0.1 10^3/uL (0.0-0.1); Eosinophils # 0.1 10^3/uL (0.0-0.8); Hematocrit 34.9 % (37-53); Lymphocytes % 90.8 %; Mean Corpuscular HGB Conc 25.2 g/dL (30-55); Mean Corpuscular Hemoglobin 27.1 pg (27-33); Mean Corpuscular Volume 107.4 fl (82-101); Mean Platelet Volume 11.3 fL (7.4-10.4); Monocytes # 31.4 10^3/uL (0.2-0.9); Monocytes % 8.1 %; Neutrophils # 3.56 10^3/uL (1.8-7.7); Neutrophils % 0.9 %; Nucleated Red Blood Cells % 0 %; Platelet Count 78 10^3/cmm (157-399); Red Blood Count 3.25 10^6/uL (3.85-5.65); Red Cell Distribution Width 19.7 % (12.1-15.1)
[2024-04-07 09:19] LABS: INR 1.08 (0.8-1.2)
[2024-04-07 09:21] LABS: Partial Thromboplastin Time 26.5 SECONDS (23.9-36.7)
[2024-04-07 09:26] LABS: Alanine Aminotransferase 25 U/L (0-41); Albumin Level 3.8 g/dL (3.5-5.2); Alkaline Phosphatase 110 U/L (40-130); Aspartate Amino Transferase 20 U/L (0-40); Blood Urea Nitrogen 16 mg/dL (8-23); Calcium 9.2 mg/dL (8.5-10.5); Carbon Dioxide 26 mmol/L (22-29); Chloride 102 mmol/L (98-107); Creatinine Clr Calc Pharmacy 83.1817; Globulin 3.9 g/dL (1.3-4.6); Glucose 129 mg/dL (65-115); Lactate Dehydrogenase 164 U/L (135-225); Osmolality Calculated 287 mOsm/kg (285-295); Sodium 137 mmol/L (136-145); Total Bilirubin 0.4 mg/dL (0.15-1.2); Total Protein 7.7 g/dL (6.6-8.7)
[2024-04-07 09:39] LABS: Bilirubin Urine 1+ (Negative); Blood Urine 3+ (Negative); Glucose Urine UA Negative (Normal); Ketones Urine Negative (Negative); Leukocyte Esterase Urine 1+ (Negative); Nitrate Urine Negative (Negative); Protein Urine 3+ (Negative); Specific Gravity, Urine 1.014 (1.005-1.030); Urine Appearance Cloudy (CLEAR); pH Urine 5.5 (5-7)
[2024-04-07 09:44] LABS: Add Urine Microscopic? YES; Bacteria Urine None Seen /hpf; Hyaline Casts Urine 0.69 /lpf; Lymphocytes # 352.3 10^3/uL (0.8-4.8); RBC Urine >100 /hpf (0-2); Squamous Epithelial Cell Urine 0-5 /hpf (0-5); WBC Urine >100 /hpf (0-5)
[2024-04-07 09:47] LABS: Slide Review Slide Review Perform
[2024-04-07 09:48] LABS: Urine Color Red (Yellow)
[2024-04-07 09:49] LABS: Add Urine Culture? Yes
[2024-04-07 11:27] LABS: Phosphorus 3.5 mg/dL (2.5-4.5); Uric Acid 3.8 mg/dL (3.4-7.0)
== END 2024-04-07 23:59 | disposition home or self-care (01) ==
PROVIDERS: Nurse Practitioner Family; PCP Nurse Practitioner; Visit Provider Internal Medicine
DX: Z53.9 Procedure and treatment not carried out, unspecified reason (principal); C91.10 Chronic lymphocytic leukemia of B-cell type not having achieved remission; R31.9 Hematuria, unspecified; I48.0 Paroxysmal atrial fibrillation
CPT/HCPCS: 36415; 80053; 81001; 82784; 83010; 83615; 84100; 84155; 84165; 84550; 85007; 85025; 85045; 85610; 85651; 85730; 86334; 86705; 86706; 87086; 87340; 99213; 99215

== ENCOUNTER 2024-05-04 08:30 | Oncology outpatient (recurring) (ONCR) | payer MEDICARE, OTHER, SELFPAY ==
[2024-04-11 09:45] LABS: Mean Corpuscular Hemoglobin 26.7 pg (27-33)
[2024-04-11 09:56] LABS: Alanine Aminotransferase 28 U/L (0-41); Alkaline Phosphatase 105 U/L (40-130); Anion Gap 15.7 (5-19); Aspartate Amino Transferase 18 U/L (0-40); Blood Urea Nitrogen 20 mg/dL (8-23); Calcium 8.9 mg/dL (8.5-10.5); Carbon Dioxide 25 mmol/L (22-29); Chloride 99 mmol/L (98-107); Globulin 3.4 g/dL (1.3-4.6); Glucose 133 mg/dL (65-115); Osmolality Calculated 285 mOsm/kg (285-295); Potassium 4.7 mmol/L (3.5-5.1); Sodium 135 mmol/L (136-145); Total Bilirubin 0.5 mg/dL (0.15-1.2); Total Protein 7.4 g/dL (6.6-8.7)
[2024-04-11 10:00] LABS: Hematocrit 36.3 % (37-53); Mean Corpuscular HGB Conc 24.5 g/dL (30-55); Mean Platelet Volume 10.8 fL (7.4-10.4); Platelet Count 96 10^3/cmm (157-399); Red Blood Count 3.33 10^6/uL (3.85-5.65); Red Cell Distribution Width 21.2 % (12.1-15.1)
[2024-04-11 11:06] LABS: Absolute Neutrophil 12.2 10^3/cmm (1.4-6.5); Absolute Segmented Neutrophil 12.2 10/cmm (1.6-7.1); Eosinophils 0 %; Lymphocytes 33 %; Lymphocytes Absolute 390.3 10^3/cmm (1.2-3.4); Monocytes Absolute 4.1 10^3/cmm (0.1-0.6); Platelet Estimate Decreased (Normal); Segmented Neutrophils 3 %; Slide Review Slide Review Perform; Total Cells Counted 100 (0-100)
[2024-04-11 11:09] LABS: White Blood Count 406.53 10^3/uL (3.29-11.43)
[2024-04-12 11:22] LABS: Ferritin 371 ng/mL (30-400); Iron 50 ug/dL (59-158); Percent Saturation 17.3 % (20-50); Total Iron Binding Capacity 288 mcg/dl; Unsaturated Iron Binding 238 ug/dL (112-347)
[2024-04-19 10:24] LABS: Basophils # 0.1 10^3/uL (0.0-0.1); Eosinophils # 0.1 10^3/uL (0.0-0.8); Hematocrit 34.3 % (37-53); Lymphocytes % 97.6 %; Mean Corpuscular HGB Conc 23.3 g/dL (30-55); Mean Corpuscular Hemoglobin 26.6 pg (27-33); Mean Platelet Volume 10.8 fL (7.4-10.4); Monocytes # 5.7 10^3/uL (0.2-0.9); Monocytes % 1.3 %; Neutrophils % 0.9 %; Nucleated Red Blood Cells # 0.1 /100WBC; Nucleated Red Blood Cells % 0 %; Platelet Count 134 10^3/cmm (157-399); Red Blood Count 3.01 10^6/uL (3.85-5.65); Red Cell Distribution Width 24.8 % (12.1-15.1)
[2024-04-19 10:36] LABS: Alanine Aminotransferase 16 U/L (0-41); Alkaline Phosphatase 93 U/L (40-130); Anion Gap 15.3 (5-19); Aspartate Amino Transferase 19 U/L (0-40); Blood Urea Nitrogen 19 mg/dL (8-23); Calcium 9.1 mg/dL (8.5-10.5); Carbon Dioxide 26 mmol/L (22-29); Chloride 100 mmol/L (98-107); Creatinine Clr Calc Pharmacy 74.4098; Globulin 3.1 g/dL (1.3-4.6); Glucose 127 mg/dL (65-115); Osmolality Calculated 286 mOsm/kg (285-295); Potassium 5.3 mmol/L (3.5-5.1); Sodium 136 mmol/L (136-145); Total Bilirubin 0.4 mg/dL (0.15-1.2); Total Protein 7.1 g/dL (6.6-8.7)
[2024-04-19 10:52] LABS: Lymphocytes # 426.7 10^3/uL (0.8-4.8); White Blood Count 437.25 10^3/uL (3.29-11.43)
[2024-04-19 10:53] LABS: Slide Review Slide Review Perform
[2024-05-03 07:42] LABS: Mean Platelet Volume 11.1 fL (7.4-10.4)
[2024-05-03 08:03] LABS: Hematocrit 36.3 % (37-53); Mean Corpuscular HGB Conc 22.6 g/dL (30-55); Mean Corpuscular Hemoglobin 26.2 pg (27-33); Platelet Count 124 10^3/cmm (157-399); Red Blood Count 3.13 10^6/uL (3.85-5.65)
[2024-05-03 08:57] LABS: White Blood Count 440.87 10^3/uL (3.29-11.43)
[2024-05-03 08:58] LABS: Slide Review Slide Review Perform
[2024-05-03 08:59] LABS: Absolute Neutrophil 8.8 10^3/cmm (1.4-6.5); Absolute Segmented Neutrophil 4.4 10/cmm (1.6-7.1); Band Neutrophils Absolute 4.4 10^3/cmm (0.0-1.2); Eosinophils 0 %; Lymphocytes 2 %; Lymphocytes Absolute 432.1 10^3/cmm (1.2-3.4); Platelet Estimate Decreased (Normal); Segmented Neutrophils 1 %; Total Cells Counted 100 (0-100)
[2024-05-03 08:59] LABS: Alanine Aminotransferase 17 U/L (0-41); Albumin Level 4.3 g/dL (3.5-5.2); Alkaline Phosphatase 97 U/L (40-130); Anion Gap 16.7 (5-19); Aspartate Amino Transferase 18 U/L (0-40); Blood Urea Nitrogen 18 mg/dL (8-23); Calcium 8.9 mg/dL (8.5-10.5); Carbon Dioxide 24 mmol/L (22-29); Chloride 105 mmol/L (98-107); Creatinine Clr Calc Pharmacy 75.3698; Globulin 2.5 g/dL (1.3-4.6); Glucose 121 mg/dL (65-115); Osmolality Calculated 295 mOsm/kg (285-295); Potassium 4.7 mmol/L (3.5-5.1); Sodium 141 mmol/L (136-145); Total Bilirubin 0.3 mg/dL (0.15-1.2); Total Protein 6.8 g/dL (6.6-8.7)
[2024-05-03 09:01] LABS: Lactate Dehydrogenase 150 U/L (135-225)
[2024-05-03] MEDS: sodium chloride 0.9% 250 ML 75 ML IV (09:33)
[2024-05-03] MEDS: acetaminophen 325 mg Tablet 650 MG PO (09:34)
[2024-05-03] MEDS: diphenhydrAMINE 50 mg/mL SDV 1mL IVP (09:34)
[2024-05-03] MEDS: dexamethasone 20 MG in sodium chloride 0.9% 50 ML 188 MG IV (09:48)
[2024-05-03 10:14] LABS: Uric Acid 3.7 mg/dL (3.4-7.0)
[2024-05-03] MEDS: obinutuzumab 100 MG in sodium chloride 0.9% (100 ml) 100 ML 50 MG IV (10:33)
[2024-05-03 15:09] VITALS: BP 110/66; PULSE 84; TEMP 37.1
[2024-05-04] MEDS: sodium chloride 0.9% 250 ML 75 ML IV (09:03)
[2024-05-04] MEDS: acetaminophen 325 mg Tablet 650 MG PO (09:04)
[2024-05-04] MEDS: diphenhydrAMINE 50 mg/mL SDV 1mL IVP (09:05)
[2024-05-04] MEDS: dexamethasone 20 MG in sodium chloride 0.9% 50 ML 188 MG IV (09:14)
[2024-05-04] MEDS: obinutuzumab 900 MG in sodium chloride 0.9%(non-DEHP) 250 ML 50 MG IV (10:16)
[2024-05-04 10:51] VITALS: BP 114/67; PULSE 65; RESP 17; TEMP 36.4; O2SAT 95
[2024-05-04 11:23] VITALS: BP 116/69; PULSE 63; RESP 18; TEMP 36.7; O2SAT 95
[2024-05-04 13:00] VITALS: BP 121/68; PULSE 70; RESP 17; TEMP 36.2; O2SAT 96
[2024-05-04 13:30] VITALS: BP 119/64; PULSE 76; RESP 18; TEMP 36.7; O2SAT 96
[2024-05-04 14:00] VITALS: BP 126/66; PULSE 78; RESP 16; TEMP 36.8; O2SAT 95
[2024-05-04 14:33] VITALS: BP 120/63; PULSE 73; RESP 18; TEMP 37.2; O2SAT 95
== END 2024-05-04 23:59 | disposition home or self-care (01) ==
PROVIDERS: Nurse Practitioner Family; PCP Nurse Practitioner; Visit Provider Internal Medicine
DX: Z53.9 Procedure and treatment not carried out, unspecified reason; Z51.12 Encounter for antineoplastic immunotherapy; C91.10 Chronic lymphocytic leukemia of B-cell type not having achieved remission; Z79.899 Other long term (current) drug therapy; Z79.52 Long term (current) use of systemic steroids
CPT/HCPCS: 36415; 80053; 82728; 83540; 83550; 83615; 84153; 84550; 85007; 85025; 96367; 96375; 96413; 96415; 99214; 99215; J1100; J1200; J7050; J9301

== ENCOUNTER 2024-05-31 09:45 | Oncology outpatient (recurring) (ONCR) | payer MEDICARE, OTHER, SELFPAY ==
[2024-05-10 10:12] LABS: Basophils # 0.1 10^3/uL (0.0-0.1); Eosinophils # 0.1 10^3/uL (0.0-0.8); Hematocrit 37.7 % (37-53); Lymphocytes % 98.8 %; Mean Corpuscular HGB Conc 23.6 g/dL (30-55); Mean Corpuscular Hemoglobin 27.3 pg (27-33); Mean Corpuscular Volume 115.6 fl (82-101); Mean Platelet Volume 11.1 fL (7.4-10.4); Monocytes # 1.4 10^3/uL (0.2-0.9); Monocytes % 0.3 %; Neutrophils # 2.91 10^3/uL (1.8-7.7); Neutrophils % 0.8 %; Nucleated Red Blood Cells % 0 %; Platelet Count 121 10^3/cmm (157-399); Red Blood Count 3.26 10^6/uL (3.85-5.65); Red Cell Distribution Width 23.2 % (12.1-15.1)
[2024-05-10 10:51] LABS: Lymphocytes # 419.6 10^3/uL (0.8-4.8)
[2024-05-10 10:53] LABS: Slide Review Slide Review Perform
[2024-05-10 12:15] LABS: Alanine Aminotransferase 27 U/L (0-41); Albumin Level 4.3 g/dL (3.5-5.2); Alkaline Phosphatase 85 U/L (40-130); Anion Gap 14.3 (5-19); Aspartate Amino Transferase 20 U/L (0-40); Blood Urea Nitrogen 14 mg/dL (8-23); Calcium 9.1 mg/dL (8.5-10.5); Carbon Dioxide 25 mmol/L (22-29); Chloride 104 mmol/L (98-107); Globulin 2.5 g/dL (1.3-4.6); Glucose 103 mg/dL (65-115); Osmolality Calculated 289 mOsm/kg (285-295); Potassium 4.3 mmol/L (3.5-5.1); Sodium 139 mmol/L (136-145); Total Bilirubin 0.3 mg/dL (0.15-1.2); Total Protein 6.8 g/dL (6.6-8.7)
[2024-05-17 09:45] LABS: Eosinophils # 0.1 10^3/uL (0.0-0.8); Hematocrit 39.6 % (37-53); Lymphocytes % 98.5 %; Mean Corpuscular HGB Conc 24.5 g/dL (30-55); Mean Corpuscular Hemoglobin 27.6 pg (27-33); Mean Corpuscular Volume 112.8 fl (82-101); Monocytes # 1.7 10^3/uL (0.2-0.9); Monocytes % 0.4 %; Neutrophils # 3.28 10^3/uL (1.8-7.7); Nucleated Red Blood Cells % 0 %; Platelet Count 123 10^3/cmm (157-399); Red Blood Count 3.51 10^6/uL (3.85-5.65)
[2024-05-17 09:58] LABS: Alanine Aminotransferase 22 U/L (0-41); Albumin Level 4.5 g/dL (3.5-5.2); Alkaline Phosphatase 78 U/L (40-130); Anion Gap 10.8 (5-19); Aspartate Amino Transferase 19 U/L (0-40); Blood Urea Nitrogen 16 mg/dL (8-23); Carbon Dioxide 29 mmol/L (22-29); Chloride 104 mmol/L (98-107); Glucose 127 mg/dL (65-115); Osmolality Calculated 291 mOsm/kg (285-295); Potassium 4.8 mmol/L (3.5-5.1); Sodium 139 mmol/L (136-145); Total Bilirubin 0.3 mg/dL (0.15-1.2); Total Protein 6.5 g/dL (6.6-8.7)
[2024-05-17 10:01] LABS: Slide Review Slide Review Perform
[2024-05-24 09:51] LABS: Eosinophils # 0.1 10^3/uL (0.0-0.8); Hematocrit 40.4 % (37-53); Lymphocytes % 98.9 %; Mean Corpuscular HGB Conc 24.8 g/dL (30-55); Mean Corpuscular Hemoglobin 27.5 pg (27-33); Mean Platelet Volume 11.2 fL (7.4-10.4); Monocytes # 1.2 10^3/uL (0.2-0.9); Monocytes % 0.3 %; Neutrophils # 2.19 10^3/uL (1.8-7.7); Neutrophils % 0.7 %; Nucleated Red Blood Cells % 0 %; Platelet Count 122 10^3/cmm (157-399); Red Blood Count 3.64 10^6/uL (3.85-5.65)
[2024-05-24 10:13] LABS: Alanine Aminotransferase 19 U/L (0-41); Albumin Level 4.5 g/dL (3.5-5.2); Alkaline Phosphatase 79 U/L (40-130); Anion Gap 13.4 (5-19); Aspartate Amino Transferase 18 U/L (0-40); Blood Urea Nitrogen 14 mg/dL (8-23); Calcium 9.1 mg/dL (8.5-10.5); Carbon Dioxide 27 mmol/L (22-29); Chloride 103 mmol/L (98-107); Glucose 145 mg/dL (65-115); Osmolality Calculated 293 mOsm/kg (285-295); Potassium 3.4 mmol/L (3.5-5.1); Sodium 140 mmol/L (136-145); Total Bilirubin 0.4 mg/dL (0.15-1.2); Total Protein 6.5 g/dL (6.6-8.7)
[2024-05-24 10:32] LABS: Slide Review Slide Review Perform
[2024-05-31 10:07] LABS: Eosinophils # 0.1 10^3/uL (0.0-0.8); Hematocrit 42.8 % (37-53); Lymphocytes % 98.8 %; Mean Corpuscular HGB Conc 25.2 g/dL (30-55); Mean Corpuscular Hemoglobin 27.7 pg (27-33); Mean Corpuscular Volume 109.7 fl (82-101); Mean Platelet Volume 11.1 fL (7.4-10.4); Monocytes # 1.2 10^3/uL (0.2-0.9); Monocytes % 0.4 %; Neutrophils # 2.49 10^3/uL (1.8-7.7); Neutrophils % 0.7 %; Nucleated Red Blood Cells % 0 %; Platelet Count 114 10^3/cmm (157-399); Red Cell Distribution Width 19.8 % (12.1-15.1)
[2024-05-31 10:38] LABS: Immunoglobulin IGA 66 mg/dL (70-400); Immunoglobulin IGG 599 mg/dL (700-1600); Immunoglobulin IGM 150 mg/dL (40-230)
[2024-05-31 10:43] LABS: Alanine Aminotransferase 20 U/L (0-41); Albumin Level 4.8 g/dL (3.5-5.2); Alkaline Phosphatase 76 U/L (40-130); Anion Gap 15.3 (5-19); Aspartate Amino Transferase 21 U/L (0-40); Blood Urea Nitrogen 14 mg/dL (8-23); Calcium 9.3 mg/dL (8.5-10.5); Carbon Dioxide 26 mmol/L (22-29); Chloride 103 mmol/L (98-107); Ferritin 168 ng/mL (30-400); Globulin 2.2 g/dL (1.3-4.6); Glucose 111 mg/dL (65-115); Iron 46 ug/dL (59-158); Lactate Dehydrogenase 172 U/L (135-225); Osmolality Calculated 291 mOsm/kg (285-295); Percent Saturation 13.3 % (20-50); Phosphorus 3.3 mg/dL (2.5-4.5); Potassium 4.3 mmol/L (3.5-5.1); Sodium 140 mmol/L (136-145); Total Bilirubin 0.3 mg/dL (0.15-1.2); Total Iron Binding Capacity 345 mcg/dl; Unsaturated Iron Binding 299 ug/dL (112-347); Uric Acid 3.7 mg/dL (3.4-7.0)
[2024-05-31 10:46] LABS: Lymphocytes # 348.6 10^3/uL (0.8-4.8)
[2024-05-31 10:47] LABS: Slide Review Slide Review Perform
[2024-05-31 10:54] LABS: Folate Level 15.1 ng/mL (4.5-32.2)
[2024-05-31 12:02] LABS: Urine Creatinine 68 mg/dL (39-259)
[2024-05-31 12:03] LABS: UPRO/UCREAT Ratio 0.44 mg/mg CR; Urine Protein Random 30 mg/dL
== END 2024-06-05 23:59 | disposition home or self-care (01) ==
PROVIDERS: Nurse Practitioner Family; PCP Nurse Practitioner; Visit Provider Internal Medicine
DX: Z53.9 Procedure and treatment not carried out, unspecified reason; C91.10 Chronic lymphocytic leukemia of B-cell type not having achieved remission; D64.9 Anemia, unspecified; R80.9 Proteinuria, unspecified; Z79.899 Other long term (current) drug therapy
CPT/HCPCS: 36415; 80053; 82570; 82728; 82746; 82784; 83540; 83550; 83615; 84100; 84153; 84156; 84550; 85025; 99213; 99214

== ENCOUNTER 2024-06-28 11:57 | Oncology outpatient (recurring) (ONCR) | payer MEDICARE, OTHER, SELFPAY ==
[2024-06-28 12:25] LABS: Reticulocyte % 1.4 % (0.5-2.0)
[2024-06-28 12:27] LABS: Eosinophils # 0.1 10^3/uL (0.0-0.8); Lymphocytes % 98.2 %; Mean Corpuscular HGB Conc 25.8 g/dL (30-55); Mean Corpuscular Volume 104.6 fl (82-101); Mean Platelet Volume 11.1 fL (7.4-10.4); Monocytes # 1.7 10^3/uL (0.2-0.9); Monocytes % 0.6 %; Neutrophils # 2.97 10^3/uL (1.8-7.7); Nucleated Red Blood Cells % 0 %; Platelet Count 142 10^3/cmm (157-399); Red Blood Count 4.11 10^6/uL (3.85-5.65); Red Cell Distribution Width 18.6 % (12.1-15.1)
[2024-06-28 12:30] LABS: Erythrocyte Sedimentation Rate 6 mm/hr (0-10)
[2024-06-28 12:41] LABS: Estmated Average Glucose 123; Hemoglobin A1C 5.9 % (4.0-6.0)
[2024-06-28 12:43] LABS: Chol HDL Ratio 4.52 mg/dL (1.0-5.00); Cholesterol 140 mg/dL (0-200); HDL Cholesterol 31 mg/dL (60-100); Immunoglobulin IGA 59 mg/dL (70-400); Immunoglobulin IGG 612 mg/dL (700-1600); Immunoglobulin IGM 96 mg/dL (40-230); LDL Cholesterol Calculated 48 mg/dL (50-129); Phosphorus 3.3 mg/dL (2.5-4.5); Triglycerides 303 mg/dL (0-150); VLDL Cholestrol Calculation 61 mg/dL (0-30)
[2024-06-28 13:42] LABS: Bilirubin Urine Negative (Negative); Blood Urine 1+ (Negative); Glucose Urine UA Negative (Normal); Ketones Urine Negative (Negative); Leukocyte Esterase Urine Negative (Negative); Nitrate Urine Negative (Negative); Protein Urine 2+ (Negative); Urine Appearance Clear (CLEAR); Urine Color Yellow (Yellow); Urobilinogen Urine 0.2 mg/dL (Negative); pH Urine 5.5 (5-7)
[2024-06-28 13:47] LABS: Add Urine Microscopic? YES; Bacteria Urine None Seen /hpf; RBC Urine 0-2 /hpf (0-2); Squamous Epithelial Cell Urine 0-5 /hpf (0-5); WBC Urine 0-5 /hpf (0-5)
[2024-06-28 14:31] LABS: Lymphocytes # 299.1 10^3/uL (0.8-4.8); Slide Review Slide Review Perform
[2024-06-28 14:37] LABS: White Blood Count 304.45 10^3/uL (3.29-11.43)
[2024-06-28 16:06] LABS: Urine Creatinine 145 mg/dL (39-259)
[2024-06-28 16:07] LABS: UPRO/UCREAT Ratio 0.36 mg/mg CR; Urine Protein Random 52 mg/dL
[2024-06-28 16:08] LABS: Urine Protein Random 51 mg/dL
[2024-06-29 07:40] LABS: PROTEIN, TOTAL 6.6 g/dL (6.1-8.1)
[2024-06-30 11:39] LABS: ALBUMIN 4.3 g/dL (3.8-4.8); ALPHA 1 GLOBULIN 0.3 g/dL (0.2-0.3); ALPHA 2 GLOBULIN 0.8 g/dL (0.5-0.9); BETA 1 GLOBULIN 0.4 g/dL (0.4-0.6); BETA 2 GLOBULIN 0.3 g/dL (0.2-0.5); GAMMA GLOBULIN 0.6 g/dL (0.8-1.7)
== END 2024-07-05 23:59 | disposition home or self-care (01) ==
PROVIDERS: Nurse Practitioner Family; PCP Nurse Practitioner; Visit Provider Internal Medicine
DX: C91.10 Chronic lymphocytic leukemia of B-cell type not having achieved remission (principal); E11.9 Type 2 diabetes mellitus without complications; R80.9 Proteinuria, unspecified; F17.220 Nicotine dependence, chewing tobacco, uncomplicated; Z79.899 Other long term (current) drug therapy
CPT/HCPCS: 36415; 80061; 81001; 82570; 82784; 83010; 83036; 84100; 84155; 84156; 84165; 84550; 85025; 85045; 85651; 86334; 99214

== ENCOUNTER 2024-08-02 10:42 | Oncology outpatient (recurring) (ONCR) | payer MEDICARE, OTHER, SELFPAY ==
[2024-08-02 11:11] LABS: Reticulocyte % 1.2 % (0.5-2.0)
[2024-08-02 11:12] LABS: Eosinophils # 0.1 10^3/uL (0.0-0.8); Hematocrit 46.5 % (37-53); Lymphocytes % 97.5 %; Mean Corpuscular HGB Conc 26.9 g/dL (30-55); Mean Corpuscular Hemoglobin 27.2 pg (27-33); Mean Corpuscular Volume 101.1 fl (82-101); Mean Platelet Volume 10.8 fL (7.4-10.4); Monocytes # 1.3 10^3/uL (0.2-0.9); Monocytes % 0.5 %; Neutrophils # 4.36 10^3/uL (1.8-7.7); Neutrophils % 1.8 %; Nucleated Red Blood Cells % 0 %; Platelet Count 113 10^3/cmm (157-399); Red Cell Distribution Width 18.3 % (12.1-15.1)
[2024-08-02 11:18] LABS: Erythrocyte Sedimentation Rate 6 mm/hr (0-10)
[2024-08-02 11:38] LABS: Alanine Aminotransferase 20 U/L (0-41); Albumin Level 4.4 g/dL (3.5-5.2); Alkaline Phosphatase 74 U/L (40-130); Anion Gap 16.7 (5-19); Aspartate Amino Transferase 20 U/L (0-40); Blood Urea Nitrogen 19 mg/dL (8-23); Calcium 8.9 mg/dL (8.5-10.5); Carbon Dioxide 24 mmol/L (22-29); Chloride 102 mmol/L (98-107); Creatinine Clr Calc Pharmacy 97.1672; Globulin 2.3 g/dL (1.3-4.6); Glucose 118 mg/dL (65-115); Lactate Dehydrogenase 195 U/L (135-225); Osmolality Calculated 289 mOsm/kg (285-295); Phosphorus 3.2 mg/dL (2.5-4.5); Potassium 4.7 mmol/L (3.5-5.1); Sodium 138 mmol/L (136-145); Total Bilirubin 0.3 mg/dL (0.15-1.2); Total Protein 6.7 g/dL (6.6-8.7); Uric Acid 5.1 mg/dL (3.4-7.0)
[2024-08-02 12:05] LABS: Lymphocytes # 244.2 10^3/uL (0.8-4.8); Slide Review Slide Review Perform
[2024-08-02 12:07] LABS: White Blood Count 250.49 10^3/uL (3.29-11.43)
[2024-08-02 12:12] LABS: Immunoglobulin IGA 62 mg/dL (70-400); Immunoglobulin IGG 580 mg/dL (700-1600); Immunoglobulin IGM 71 mg/dL (40-230)
[2024-08-03 06:59] LABS: PROTEIN, TOTAL 6.7 g/dL (6.1-8.1)
[2024-08-04 15:30] LABS: ABNORMAL PROTEIN BAND 1 0.1 g/dL (NONE DETECTED); ALBUMIN 4.4 g/dL (3.8-4.8); ALPHA 1 GLOBULIN 0.3 g/dL (0.2-0.3); ALPHA 2 GLOBULIN 0.8 g/dL (0.5-0.9); BETA 1 GLOBULIN 0.4 g/dL (0.4-0.6); BETA 2 GLOBULIN 0.3 g/dL (0.2-0.5); GAMMA GLOBULIN 0.5 g/dL (0.8-1.7)
[2024-08-06 15:29] LABS: Immunofixation Serum Normal pattern.
== END 2024-08-05 23:59 | disposition home or self-care (01) ==
PROVIDERS: Nurse Practitioner Family; PCP Nurse Practitioner; Visit Provider Internal Medicine
DX: C91.10 Chronic lymphocytic leukemia of B-cell type not having achieved remission (principal); Z79.899 Other long term (current) drug therapy; Z71.6 Tobacco abuse counseling
CPT/HCPCS: 36415; 80053; 82784; 83010; 83615; 84100; 84155; 84165; 84550; 85025; 85045; 85651; 86334; 99213

== ENCOUNTER 2024-08-30 11:16 | Oncology outpatient (recurring) (ONCR) | payer MEDICARE, OTHER, SELFPAY ==
[2024-08-30 11:37] LABS: Eosinophils # 0.2 10^3/uL (0.0-0.8); Eosinophils % 0.1 %; Mean Corpuscular HGB Conc 28.8 g/dL (30-55); Mean Corpuscular Volume 97.1 fl (82-101); Mean Platelet Volume 10.6 fL (7.4-10.4); Monocytes # 1.3 10^3/uL (0.2-0.9); Monocytes % 0.7 %; Neutrophils % 2.1 %; Nucleated Red Blood Cells % 0 %; Platelet Count 121 10^3/cmm (157-399); Red Blood Count 4.43 10^6/uL (3.85-5.65); Red Cell Distribution Width 18.1 % (12.1-15.1)
[2024-08-30 11:52] LABS: Lymphocytes # 181.6 10^3/uL (0.8-4.8)
[2024-08-30 11:54] LABS: Alanine Aminotransferase 25 U/L (0-41); Albumin Level 4.4 g/dL (3.5-5.2); Alkaline Phosphatase 75 U/L (40-130); Anion Gap 15.9 (5-19); Aspartate Amino Transferase 22 U/L (0-40); Blood Urea Nitrogen 19 mg/dL (8-23); Carbon Dioxide 26 mmol/L (22-29); Chloride 102 mmol/L (98-107); Globulin 2.4 g/dL (1.3-4.6); Glucose 119 mg/dL (65-115); Lactate Dehydrogenase 197 U/L (135-225); Magnesium 2.1 mg/dL (1.7-2.3); Osmolality Calculated 291 mOsm/kg (285-295); Phosphorus 3.2 mg/dL (2.5-4.5); Potassium 4.9 mmol/L (3.5-5.1); Sodium 139 mmol/L (136-145); Total Bilirubin 0.4 mg/dL (0.15-1.2); Total Protein 6.8 g/dL (6.6-8.7); Uric Acid 6.4 mg/dL (3.4-7.0)
[2024-08-30 11:57] LABS: Slide Review Slide Review Perform; White Blood Count 187.23 10^3/uL (3.29-11.43)
== END 2024-09-04 23:59 | disposition home or self-care (01) ==
PROVIDERS: PCP Nurse Practitioner; Visit Provider Internal Medicine
DX: C91.10 Chronic lymphocytic leukemia of B-cell type not having achieved remission (principal)
CPT/HCPCS: 36415; 80053; 83615; 83735; 84100; 84550; 85025

== ENCOUNTER 2024-10-04 10:50 | Oncology outpatient (recurring) (ONCR) | payer MEDICARE, OTHER, SELFPAY ==
[2024-10-04 11:23] LABS: Hematocrit 44.8 % (37-53); Hemoglobin 13.10 g/dL (11.27-16.99); Mean Corpuscular HGB Conc 29.2 g/dL (30-55); Mean Corpuscular Hemoglobin 27.7 pg (27-33); Mean Corpuscular Volume 94.7 fl (82-101); Platelet Count 119 10^3/cmm (157-399); Red Blood Count 4.73 10^6/uL (3.85-5.65)
[2024-10-04 11:51] LABS: Alanine Aminotransferase 20 U/L (0-41); Albumin Level 4.5 g/dL (3.5-5.2); Alkaline Phosphatase 73 U/L (40-130); Anion Gap 16.1 (5-19); Aspartate Amino Transferase 21 U/L (0-40); Blood Urea Nitrogen 17 mg/dL (8-23); Calcium 9.2 mg/dL (8.5-10.5); Carbon Dioxide 27 mmol/L (22-29); Chloride 102 mmol/L (98-107); Creatinine Clr Calc Pharmacy 96.3408; Globulin 2.5 g/dL (1.3-4.6); Glucose 123 mg/dL (65-115); Osmolality Calculated 295 mOsm/kg (285-295); Potassium 4.1 mmol/L (3.5-5.1); Sodium 141 mmol/L (136-145); Total Protein 7.0 g/dL (6.6-8.7)
[2024-10-04 12:04] LABS: Slide Review Slide Review Perform
[2024-10-04 12:05] LABS: Total Cells Counted 100 (0-100); White Blood Count 139.00 10^3/uL (3.29-11.43)
[2024-10-04 12:06] LABS: Absolute Segmented Neutrophil 9.7 10/cmm (1.6-7.1); Anisocytosis 1+; Atypical Lymphs 3.0 % (0-5); Band Neutrophils Absolute 0.0 10^3/cmm (0.0-1.2); Giant Platelets Trace
[2024-10-04 12:07] LABS: Smudge Cells 1+
[2024-10-05 06:14] LABS: PROTEIN, TOTAL 6.9 g/dL (6.1-8.1)
[2024-10-05 20:14] LABS: ALPHA 1 GLOBULIN 0.3 g/dL (0.2-0.3); ALPHA 2 GLOBULIN 0.9 g/dL (0.5-0.9); BETA 1 GLOBULIN 0.4 g/dL (0.4-0.6); BETA 2 GLOBULIN 0.3 g/dL (0.2-0.5)
== END 2024-10-05 23:59 | disposition home or self-care (01) ==
PROVIDERS: Nurse Practitioner; PCP Nurse Practitioner; Visit Provider Internal Medicine
DX: C91.10 Chronic lymphocytic leukemia of B-cell type not having achieved remission (principal); Z79.899 Other long term (current) drug therapy; F17.220 Nicotine dependence, chewing tobacco, uncomplicated; Z71.6 Tobacco abuse counseling; I48.0 Paroxysmal atrial fibrillation; E11.9 Type 2 diabetes mellitus without complications
CPT/HCPCS: 36415; 80053; 83615; 84155; 84165; 85007; 85025; 99214

== ENCOUNTER → 2024-12-07 09:00 | Outpatient (BNVA) | payer MEDICARE, OTHER, SELFPAY | PROVIDERS: PCP Nurse Practitioner; Visit Provider Nurse Practitioner | DX: E55.9 Vitamin D deficiency, unspecified (principal); I10 Essential (primary) hypertension; E78.5 Hyperlipidemia, unspecified; E11.9 Type 2 diabetes mellitus without complications; Z12.5 Encounter for screening for malignant neoplasm of prostate | CPT/HCPCS: 80053; 81000; 82043; 82306; 82607; 83036; 85025; G0103 ==

== ENCOUNTER 2025-01-03 10:37 | Oncology outpatient (recurring) (ONCR) | payer MEDICARE, OTHER, SELFPAY ==
[2025-01-03 11:00] LABS: Hematocrit 44.8 % (37-53); Hemoglobin 14.20 g/dL (11.27-16.99); Mean Corpuscular HGB Conc 31.7 g/dL (30-55); Mean Corpuscular Hemoglobin 30.4 pg (27-33); Mean Corpuscular Volume 95.9 fl (82-101); Platelet Count 106 10^3/cmm (157-399); Red Blood Count 4.67 10^6/uL (3.85-5.65)
[2025-01-03 11:29] LABS: Alanine Aminotransferase 15 U/L (0-41); Albumin Level 4.6 g/dL (3.5-5.2); Alkaline Phosphatase 59 U/L (40-130); Anion Gap 14.1 (5-19); Aspartate Amino Transferase 18 U/L (0-40); Blood Urea Nitrogen 18 mg/dL (8-23); Calcium 9.5 mg/dL (8.5-10.5); Carbon Dioxide 29 mmol/L (22-29); Chloride 100 mmol/L (98-107); Globulin 2.4 g/dL (1.3-4.6); Glucose 129 mg/dL (65-115); Magnesium 1.9 mg/dL (1.7-2.3); Osmolality Calculated 292 mOsm/kg (285-295); Potassium 4.1 mmol/L (3.5-5.1); Prostate Specific Antigen 3.010 ng/mL (0-4); Sodium 139 mmol/L (136-145); Total Protein 7.0 g/dL (6.6-8.7); Uric Acid 8.3 mg/dL (3.4-7.0)
[2025-01-03 11:46] LABS: Slide Review Slide Review Perform
[2025-01-03 11:55] LABS: Absolute Segmented Neutrophil 1.9 10/cmm (1.6-7.1); Atypical Lymphs 14.0 % (0-5); Band Neutrophils Absolute 0.0 10^3/cmm (0.0-1.2); Total Cells Counted 100 (0-100)
[2025-01-03 13:55] LABS: White Blood Count 61.79 10^3/uL (3.29-11.43)
[2025-01-04 08:14] LABS: PROTEIN, TOTAL 6.9 g/dL (6.1-8.1)
[2025-01-05 08:09] LABS: ALPHA 1 GLOBULIN 0.3 g/dL (0.2-0.3); ALPHA 2 GLOBULIN 0.8 g/dL (0.5-0.9); BETA 1 GLOBULIN 0.4 g/dL (0.4-0.6); BETA 2 GLOBULIN 0.3 g/dL (0.2-0.5)
== END 2025-01-05 23:59 | disposition home or self-care (01) ==
PROVIDERS: PCP Nurse Practitioner; Visit Provider Internal Medicine
DX: C91.10 Chronic lymphocytic leukemia of B-cell type not having achieved remission (principal); E55.9 Vitamin D deficiency, unspecified; F17.220 Nicotine dependence, chewing tobacco, uncomplicated; Z79.899 Other long term (current) drug therapy
CPT/HCPCS: 36415; 80053; 82306; 83615; 83735; 84153; 84155; 84165; 84550; 85007; 85025; 86334; 99213

== ENCOUNTER → 2025-02-15 09:49 | Outpatient (BNVA) | payer MEDICARE, OTHER, SELFPAY | PROVIDERS: PCP Nurse Practitioner; Visit Provider Nurse Practitioner | DX: E55.9 Vitamin D deficiency, unspecified (principal); E11.9 Type 2 diabetes mellitus without complications | CPT/HCPCS: 82306; 83036 ==